=== PATIENT | female | born 1965 | race Caucasian/White ===

== ENCOUNTER 2022-06-04 18:21 | Outpatient (REF) | payer BC, MEDICAID, SELFPAY ==
[2022-06-04 15:08] LABS: Abs Immature Grans 0.03 10^3/uL (0.0-0.06); Absolute Basophil Count 0.06 10^3/uL (0.0-0.2); Absolute Eosinophil Count 0.13 10^3/uL (0.0-0.7); Absolute Monocyte Count 0.64 10^3/uL (0.1-0.8); Absolute Neutrophil Count 3.14 10^3/uL (1.2-6.7); Eosinophils % 2.1; HCT 42.9 % (36.0-46.0); HGB 14.5 g/dL (11.2-15.7); Immature Grans % 0.5; Lymphocytes % 34.4; MCH 32.6 pg (27.0-33.0); MCHC 33.8 % (32.0-36.0); MCV 96 fL (80-95); MPV 9.8 fL (8.0-11.0); Monocytes % 10.5; Neutrophils % 51.5; Platelet Count 304 10^3/uL (130-400); RBC 4.45 10^6/uL (3.93-5.22); RDW 13.1 % (11.7-14.6); RDW-SD 46.6 fL
[2022-06-06 09:41] LABS: IgE 538 IU/mL (<158)
== END 2022-06-04 18:22 | disposition home or self-care (01) ==
LOC: LBN 18:21
PROVIDERS: Visit Provider Student in an Organized Health Care Education/Training Program
DX: J44.9 Chronic obstructive pulmonary disease, unspecified (principal); J45.909 Unspecified asthma, uncomplicated
CPT/HCPCS: 82785; 85025

== ENCOUNTER 2023-09-06 15:03 | Outpatient (CLI) | payer BC, MEDICAID, SELFPAY ==
[2023-09-06 11:23] LABS: Abs Immature Grans 0.03 10^3/uL (0.0-0.06); Absolute Basophil Count 0.06 10^3/uL (0.0-0.2); Absolute Eosinophil Count 0.12 10^3/uL (0.0-0.7); Absolute Lymphocyte Count 1.59 10^3/uL (1.2-3.4); Absolute Monocyte Count 0.45 10^3/uL (0.1-0.8); Absolute Neutrophil Count 4.26 10^3/uL (1.2-6.7); Basophils % 0.9; Eosinophils % 1.8; HGB 11.7 g/dL (11.2-15.7); Immature Grans % 0.5; Lymphocytes % 24.4; MCH 30.2 pg (27.0-33.0); MCHC 31.6 % (32.0-36.0); MCV 96 fL (80-95); MPV 8.5 fL (8.0-11.0); Monocytes % 6.9; Neutrophils % 65.5; Platelet Count 294 10^3/uL (130-400); RBC 3.87 10^6/uL (3.93-5.22); RDW 13.1 % (11.7-14.6); RDW-SD 46.3 fL; WBC 6.51 10^3/uL (4.4-10.8)
--- OUTSIDE RECORDS SUMMARY | 2023-09-06 15:06 | XMS_ITS | Continuity of Care Document ---
Author Name Unknown Organization [facility] Address [address] [place] [address] Care Team Providers Care Rate Clerk Passenger Name Role Phone Alicia Castorena Primary Care Physician Denise Contreras Unavailable Unavailable Encounter [facility] Date(s): 08/09/23 - 08/09/23 [facility] [address] [place] [address] Encounter Diagnosis Back pain(Discharge Diagnosis) - 08/09/23 Discharge Disposition: Home or Self Care Attending Physician: Loretta Berger MD Admitting Physician: Loretta Berger MD Allergies, Adverse Reactions, Alerts Substance Reaction Severity Status HOUSE DUST Unknown Active WEED POLLEN Unknown Active ANIMAL DANDER Unknown Active CIGARETTE SMOKE Unknown Active codeine Itching Unknown Active amoxicillin Itching Unknown Active sulfa drugs Itching Unknown Active Assessment and Plan Future Appointments Functional Status 08/09/23 Family Member Travel History No recent t ravel Recent Travel History No recent travel Other exposure to Infectious Disease Non e Immunizations Given and Recorded Vaccine Date Status Refusal Reason influenza virus vaccine, inactivated 07/09/23 Give n influenza virus vaccine, inactivated 07/15/20 Cameron rded influenza virus vaccine, inactivated 07/29/14 Cameron rded influenza virus vaccine, inactivated 08/24/13 Cameron rded influenza virus vaccine, inactivated 09/30/12 Cameron rded influenza, unspecified formulation 1 09/19/22 Cameron rded influenza virus vaccine, live 08/09/21 Recorded influenza virus vaccine, live 2 07/06/19 Recorded influenza virus vaccine, live 08/21/18 Recorded SARS-CoV-2 (COVID-19) Ad26 vaccine 06/16/21 Record ed tetanus-diphth toxoids (Td) adult/adol 3 05/04/19 Recorded pneumococcal 23-polyvalent vaccine 4 05/04/19 Cameron rded tetanus/diphth/pertuss (Tdap) adult/adol 07/15/08 Recorded 1Result Comment: patient staetdt the vaccine was through [facility] 2Result Comment: tolerated well 3Result Comment: Tolerated well 4Result Comment: Tolerated well Medications Albuterol (Eqv-Ventolin HFA) 90 mcg/inh inhalation aerosol See Instructions, INHALE 2 PUFFS BY MOUTH EVERY 4 HOURS NEEDED, # 18 g, 0 Refill(s), Pharmacy: [facility] #[id number], 146, cm, 07/26/22 7:23:00 EDT, Height/Length Dosing, 67, kg, 07/26/22 7:23:00 EDT, Weight Dosing Start Date: 07/11/23 Status: Ordered arformoterol 15 mcg/2 mL inhalation solution USE 2 ML VIA NEBULIZER TWICE DAILY Start Date: 07/09/23 Status: Ordered Breztri Aerosphere 160 mcg-9 mcg-4.8 mcg/inh inhalation aerosol INHALE 2 PUFFS BY MOUTH TWICE DAILY Start Date: 07/09/23 Status: Ordered budesonide 1 mg/2 mL inhalation suspension USE 1 AMPULE VIA NEBULIZER DAILY Start Date: 07/09/23 Status: Ordered cyclobenzaprine 10 mg oral tablet 10 mg = 1 tab, Oral, TID, PRN as needed for spasm, X 10 days, # 30 tab, 0 Refill(s), 08/19/23 1:38:00 PM CDT, Pharmacy: [facility] #[id number], 146, cm, 08/09/23 12:12:00 EDT, Height/Length Dosing, 80.2, kg, 08/09/23 12:12:00 EDT, Weight Dosing Start Date: 08/09/23 Stop Date: 08/19/23 Status: Ordered ibuprofen 200 mg oral tablet 2 tab, Oral, As Directed, as needed, 0 Refill(s) Start Date: 03/13/22 Status: Ordered ipratropium-albuterol 0.5 mg-2.5 mg/3 mL inhalation solution See Instructions, USE 1 AMPULE IN NEBULIZER BY MOUTH EVERY 4 HOURS NEEDED, # 180 mL, 11 Refill(s), [id number], 146, cm, 07/26/22 7:23:00 EDT, Height/Length Dosing, 67, kg, 07/26/22 7:23:00 EDT, Weight Dosing Start Date: 04/01/23 Status: Ordered loratadine 10 mg oral tablet 1 tab, Oral, Daily, 0 Refill(s) Start Date: 03/13/22 Status: Ordered LORazepam 0.5 mg oral tablet See Instructions, 1 tablet twice daily as needed, # 60 tab, 0 Refill(s), Pharmacy: [id number], 146, cm, 07/26/22 7:23:00 EDT, Height/Length Dosing, 67, kg, 07/26/22 7:23:00 EDT, Weight Dosing Start Date: 07/09/23 Status: Ordered montelukast 10 mg oral tablet See Instructions, TAKE 1 TABLET BY MOUTH EVERY DAY, # 90 tab, 3 Refill(s), Pharmacy: [id number] Start Date: 06/12/22 Status: Ordered Nebulizer Machine with tubbing Nebulizer Machine with tubbing, Order for Nebulizer with tubbing [facility], Supply, See instructions, # 1 EA, 0 Refill(s) Start Date: 04/17/22 Status: Ordered oxyCODONE 5 mg oral tablet 5 mg = 1 tab, Oral, every 4 hr, PRN as needed for pain, X 5 days, # 12 tab, 0 Refill(s), 08/14/23 1:38:00 PM CDT, [id number], 146, cm, 08/09/23 12:12:00 EDT, Height/Length Dosing, 80.2, kg, 08/09/23 12:12:00 EDT, Weight Dosing Start Date: 08/09/23 Stop Date: 08/14/23 Status: Ordered oxygen concentrator oxygen concentrator, home oxygen concentrator, Supply, See instructions, # 1 EA, 0 Refill(s) Start Date: 11/01/22 Status: Ordered PORTABLE NEBULIZER WITH MASK AND TUBING PORTABLE NEBULIZER WITH MASK AND TUBING, DX: (COPD J44.9) NEEDS PORTABLE NEBULIZER MACHINE WITH MASK AND TUBING, Supply, See instructions, # 1 EA, 0 Refill(s) Start Date: 05/14/22 Status: Ordered sertraline 25 mg oral tablet 1 tab, Oral, Daily, # 90 tab, 0 Refill(s), Pharmacy: [id number], 146, cm, 07/26/22 7:23:00 EDT, Height/Length Dosing, 67, kg, 07/26/22 7:23:00 EDT, Weight Dosing Start Date: 06/05/23 Status: Ordered Tylenol Extra Strength 500 mg oral tablet 0 Refill(s) Start Date: 03/13/22 Status: Ordered Xolair Prefilled Syringe 75 mg/0.5 mL subcutaneous solution 0 Refill(s) Start Date: 07/09/23 Status: Ordered Problem List Condition Confirmation Course Effective Dates Status Health St [facility] Informant Allergic rhinitis Confirmed Active Anxiety Confirmed Active Asthma Confirmed Active Chronic obstructive lung disease Confirmed 07/06/19 Active Cough Confirmed Active Breast cancer 1 Confirmed Active Nicotine dependence Confirmed Active 1right breast. Lumpectomy /radioation Procedures Procedure Date Related Diagnosis Body Site Status CT of chest without contrast 12/18/21 Completed Lumpectomy of right breast 1 11/19/21 Completed Ultrasound of right breast 2 09/06/21 Completed Mammogram 3 08/10/21 Completed PAP smear preparation 4 07/24/17 C ompleted TL - Tubal ligation 10/20/87 Compl eted Appendectomy 10/20/84 Completed Cholecystectomy 10/20/84 Completed Tonsillectomy 10/20/67 Completed 1with radiation 2Right ultrasound guided breast biopsy with vacum assistance 3BI-RADS Category: Needs additional imaging evaluation 4WNL/Neg for HPV Vital Signs Most recent to oldest [Reference Range]: 1 Temperature Temporal Artery [36-38 Deg C ] 35.7 Deg C *LOW* (08/09/23 12:08 PM) Peripheral Pulse Rate [60-100 bpm] 90 bp m (08/09/23 12:08 PM) Respiratory Rate [12-24 br/min] 20 br/mi n (08/09/23 12:08 PM) Blood Pressure [90-140/60-90 mmHg] 153/9 6mmHg *HI* (08/09/23 12:08 PM) Mean Arterial Pressure, Cuff [65-140 mmH g] 115 mmHg (08/09/23 12:08 PM) Weight Dosing 80.20 kg (08/09/23 12:12 PM) Weight Estimated 80.20 kg (08/09/23 12:08 PM) Height/Length Dosing 146.000 cm (08/09/23 12:12 PM) Height/Length Estimated 146.000 cm (08/09/23 12:08 PM) Social History Social History Type Response Tobacco Former tobacco user Tobacco Use:. 1 Sex Female 1Quit 06/27/2018 Hospital Discharge Instructions Patient Education 08/09/2023 13:40:56 Acute Back Pain, Adult Acute Back Pain, Adult Acute back pain is sudden and usually short-lived. It is often caused by an injury to the muscles and tissues in the back. The injury may result from: ??? A muscle, tendon, or ligament getting overstretched or torn. Ligaments are tissues that connectbones to each other. Lifting something improperly can cause a back strain. ??? Wear and tear (degeneration) of the spinal disks. Spinal disks are circular tissue that providecushioning between the bones of the spine (vertebrae). ??? Twisting motions, such as while playing sports or doing yard work. ??? A hit to the back. ??? Arthritis. You may have a physical exam, lab tests, and imaging tests to find the cause of your pain. Acute back pain usually goes away with rest and home care. Follow these instructions at home: Managing pain, stiffness, and swelling ??? Take dwrn-lev-kwgwenr and prescription medicines only as told by your health care provider. Treatment may include medicines for pain and inflammation that are taken by mouth or applied to the skin, or muscle relaxants. ??? Your health care provider may recommend applying ice during the first 24???48 hours after your pain starts. To do this: ??? Put ice in a plastic bag. ??? Place a towel between your skin and the bag. ??? Leave the ice on for 20 minutes, 2???3 times a day. ??? Remove the ice if your skin turns bright red. This is very important. If you cannot feel pain, heat, or cold, you have a greater risk of damage to the area. ??? If directed, apply heat to the affected area as often as told by your health care provider. Usethe heat source that your health care provider recommends, such as a moist heat pack or a heating pad. ??? Place a towel between your skin and the heat source. ??? Leave the heat on for 20???30 minutes. ??? Remove the heat if your skin turns bright red. This is especially important if you are unable to feel pain, heat, or cold. You have a greater risk of getting burned. Activity ??? Do not stay in bed. Staying in bed for more than 1???2 days can delay your recovery. ??? Sit up and stand up straight. Avoid leaning forward when you sit or hunching over when you stand. ??? If you work at a desk, sit close to it so you do not need to lean over. Keep your chin tucked in. Keep your neck drawn back, and keep your elbows bent at a 90-degree angle (right angle). ??? Sit high and close to the steering wheel when you drive. Add lower back (lumbar) support to your car seat, if needed. ??? Take short walks on even surfaces as soon as you are able. Try to increase the length of time you walk each day. ??? Do not sit, drive, or labor standards director one place for more than 30 minutes at a time. Sitting or standing for long periods of time can put stress on your back. ??? Do not drive or use heavy machinery while taking prescription pain medicine. ??? Use proper lifting techniques. When you bend and lift, use positions that put less stress on your back: ??? Bend your knees. ??? Keep the load close to your body. ??? Avoid twisting. ??? Exercise regularly as told by your health care provider. Exercising helps your back heal fasterand helps prevent back injuries by keeping muscles strong and flexible. ??? Work with a physical therapist to make a safe exercise program, as recommended by your health care provider. Do any exercises as told by your physical therapist. Lifestyle ??? Maintain a healthy weight. Extra weight puts stress on your back and makes it difficult to havegood posture. ??? Avoid activities or situations that make you feel anxious or stressed. Stress and anxiety increase muscle tension and can make back pain worse. Learn ways to manage anxiety and stress, such as through exercise. General instructions ??? Sleep on a firm mattress in a comfortable position. Try lying on your side with your knees slightly bent. If you lie on your back, put a pillow under your knees. ??? Keep your head and neck in a straight line with your spine (neutral position) when using electronic equipment like smartphones or pads. To do this: ??? Raise your smartphone or pad to look at it instead of bending your head or neck to look down. ??? Put the smartphone or pad at the level of your face while looking at the screen. ??? Follow your treatment plan as told by your health care provider. This may include: ??? Cognitive or behavioral therapy. ??? Acupuncture or massage therapy. ??? Meditation or yoga. Contact a health care provider if: ??? You have pain that is not relieved with rest or medicine. ??? You have increasing pain going down into your legs or buttocks. ??? Your pain does not improve after 2 weeks. ??? You have pain at night. ??? You lose weight without trying. ??? You have a fever or chills. ??? You develop nausea or vomiting. ??? You develop abdominal pain. Get help right away if: ??? You develop new bowel or bladder control problems. ??? You have unusual weakness or numbness in your arms or legs. ??? You feel faint. These symptoms may represent a serious problem that is an emergency. Do not wait to see if the symptoms will go away. Get medical help right away. Call your local emergency services (911 in the [place] Do not drive yourself to the hospital. Summary ??? Acute back pain is sudden and usually short-lived. ??? Use proper lifting techniques. When you bend and lift, use positions that put less stress on your back. ??? Take smkn-jju-swaxxjg and prescription medicines only as told by your health care provider, andapply heat or ice as told. This information is not intended to replace advice given to you by your health care provider. Make sure you discuss any questions you have with your health care provider. Document Revised: 12/29/2021 Document Reviewed: 12/29/2021 [employer] Patient Education ?? 2022 [email or web address]. Follow Up Care 08/09/2023 12:08:30 With:Follow up with primary care provider Address: When:1 to 2 weeks Physician Emergency department Note * Loretta Berger MD: PERFORM Event Display: ED Note Physician Authored Date: [id number] ANGELITO TELLEZ :1965 Age:57 years Sex:Female Visit Date:08/09/2023 Primary Care Physician: Alicia Castorena MD Basic Information Time Seen: Loretta Berger MD / 08/09/2023 14:20 Chief Complaint I have back pain I was strectching a few days ago and I felt a pop. I had left over methocarbomel but I only have two left.' I can't get into PCP until saturday. I'm taking so much ibuprofen and tylenol i'm nausetaed from it History Of Present Illness: Reports earlier in the week on Saturday she??stretched and felt something pop in her right low back??she has had pain there since she has tried??further stretching without relief it is affected her sleep??she has had Flexeril 1 tablet last that??helped a little she has been taking some Tylenol ibuprof en??regularly with some relief but not a lot she states it is still bothering her quite a bit??she has been trying to get into see her primary care provider the soonest they could get her in with Saturday.?? Patient is on O2 chronically she has??COPD but then had radiation that made her??have to haveoxygen??all the time, patient does not drive her children drive??her children live with her.?? No fever??no urinary??symptoms??no bowel or bladder incontinence no tingling or numbness of legs no weakness of legs. Review of Systems: see hpi for ros Physical Exam Vitals & Measurements T:??35.7?C ??(Temporal Artery)?? HR:??90??(Peripheral)?? RR:??20?? BP:??153/96?? SpO2:??96%?? HT:??146.000??cm?? WT:??80.20??kg??(Estimated)?? O2 Flow Rate:??4?? O2 Therapy:??Nasal cannula?? General: Alert and oriented, well nourished,?No??acute distress Eye: PER,?Normal??conjunctiva, No scleral icterus HENT: Normocephalic?Normal?? hearing?? Respiratory:??Respiration??no distress??no increased work of breathing Chest: wall excursion wnl no abnormal movements no obvious deformities Musculoskeletal:?Normal?? range of motion and strength,?No??tenderness,?No??swelling Back:Positive tenderness right lumbar paraspinal muscles Skin: Skin is warm, dry and pink,?No??rashes,?No??lesions Neurologic: Awake, alert and oriented X4 Psychiatric: Cooperative, appropriate mood and affect Medical Decision Making: For MDM please see under assessment and plan Procedure No Qualifying Data Assessment/Plan 1.??Back pain??M54.9 For cyclobenzaprine 10 mg 3 times a day is sent to the pharmacy as well as??oxycodone 5 mg 1 tab every 4 hours as needed??#12 tabs??patient will continue with ibuprofen and Tylenol and have??oxycodone if needed.?? 2 lidocaine patches were applied here in the emergency department to see if this willbe helpful.?? Patient is aware these??lidocaine patches can be on??for 12 hours and then must be off for 12 hours Ordered: cyclobenzaprine 10 mg oral tablet, 10 mg = 1 tab, Oral, TID, PRN as needed for spasm, X 10 days, # 30 tab, 0 Refill(s), 08/19/23 14:38:00 EDT, Pharmacy: [facility] #[id number], 146, cm, 08/09/2312:12:00 EDT, Height/Length Dosing, 80.2, kg, 08/09/23 12:12:00 EDT, Weight Dosing lidocaine 5% topical film, 1 patches, Topical, Film, Once, First Dose: 08/09/23 14:40:00 EDT, Stop Date: 08/09/23 14:40:00 EDT, Physician Stop, STAT lidocaine 5% topical film, 1 patches, Topical, Film, Once, First Dose: 08/09/23 14:40:00 EDT, Stop Date: 08/09/23 14:40:00 EDT, Physician Stop, STAT oxyCODONE 5 mg oral tablet, 5 mg = 1 tab, Oral, every 4 hr, PRN as needed for pain, X 5 days, # 12 tab, 0 Refill(s), 08/14/23 14:38:00 EDT, Pharmacy: [facility] #[id number], 146, cm, 08/09/23 12:12:00 EDT, Height/Length Dosing, 80.2, kg, 08/09/23 12:12:00 EDT, Weight Dosing Discharge Patient, 08/09/23 14:38:00 EDT, Home Independently, Constant Indicator ?? Patient Education Acute Back Pain, Adult Follow Up With When Contact Information Follow up with primary care provider Within 1 to 2 weeks Additional Instructions: Medication Reconciliation New Prescription cyclobenzaprine (cyclobenzaprine 10 mg oral tablet)1 tab Oral (given by mouth) 3 times a day as needed as needed for spasm for 10 Days. Refills: 0. ?? oxyCODONE (oxyCODONE 5 mg oral tablet)1 tab Oral (given by mouth) every 4 hours as needed as neededfor pain for 5 Days. Refills: 0. ?? Unchanged acetaminophen (Tylenol Extra Strength 500 mg oral tablet) ?? albuterol (Albuterol (Eqv-Ventolin HFA) 90 mcg/inh inhalation aerosol)INHALE 2 PUFFS BY MOUTH EVERY4 HOURS NEEDED. Refills: 0. ?? arformoterol (arformoterol 15 mcg/2 mL inhalation solution)USE 2 ML VIA NEBULIZER TWICE DAILY. ?? budesonide (budesonide 1 mg/2 mL inhalation suspension)USE 1 AMPULE VIA NEBULIZER DAILY. ?? budesonide/glycopyrrolate/formoterol (Breztri Aerosphere 160 mcg-9 mcg-4.8 mcg/inh inhalation aerosol)INHALE 2 PUFFS BY MOUTH TWICE DAILY. ?? Durable Medical Equipment for Prescription (Nebulizer Machine with tubbing)Order for Nebulizer withtubbing [facility]. Refills: 0. ?? Durable Medical Equipment for Prescription (oxygen concentrator)home oxygen concentrator. Refills: 0. ?? Durable Medical Equipment for Prescription (PORTABLE NEBULIZER WITH MASK AND TUBING)DX: (COPD J44.9) NEEDS PORTABLE NEBULIZER MACHINE WITH MASK AND TUBING. Refills: 0. ?? ibuprofen (ibuprofen 200 mg oral tablet)2 tab Oral (given by mouth) As Directed. as needed. ?? ipratropium-albuterol (ipratropium-albuterol 0.5 mg-2.5 mg/3 mL inhalation solution)USE 1 AMPULE INNEBULIZER BY MOUTH EVERY 4 HOURS NEEDED. Refills: 11. ?? loratadine (loratadine 10 mg oral tablet)1 tab Oral (given by mouth) every day. ?? LORazepam (LORazepam 0.5 mg oral tablet)1 tablet twice daily as needed. Refills: 0. ?? montelukast (montelukast 10 mg oral tablet)TAKE 1 TABLET BY MOUTH EVERY DAY. Refills: 3. ?? omalizumab (Xolair Prefilled Syringe 75 mg/0.5 mL subcutaneous solution) ?? sertraline (sertraline 25 mg oral tablet)1 tab Oral (given by mouth) every day. Refills: 0. Problem List/Past Medical History Ongoing Allergic rhinitis Anxiety Asthma Breast cancer Chronic obstructive lung disease Cough Nicotine dependence Historical No qualifying data Procedure/Surgical History ???CT of chest without contrast (12/19/2021)???Lumpectomy of right breast (11/20/2021)???Ultrasoundof right breast (09/07/2021)???Mammogram (08/11/2021)???PAP smear preparation (07/25/2017)???TL - Tubal ligation (10/21/1987)???Appendectomy (10/21/1984)???Cholecystectomy (10/21/1984)???Tonsillectomy (10/21/1967) Allergies ANIMAL DANDER CIGARETTE SMOKE HOUSE DUST WEED POLLEN amoxicillin??(Itching) codeine??(Itching) sulfa drugs??(Itching) Social History Alcohol Current, 1-2 times per year Electronic Cigarette/Vaping Electronic Cigarette Use: Former use, quit more than 90 days ago.- Comments: 2018 x 1 month 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 Nutrition/Health Diet: Regular. Caffeine intake amount: 3 cups of coffee daily. Substance Use Never Tobacco Former tobacco user Tobacco Use:.- Comments: Quit 06/27/2018 Family History Patient was adopted Electronically Signed on 08/09/23 02:47 PM Loretta Berger MD Emergency department Discharge instructions * Loretta Berger MD: PERFORM Event Display: ED Discharge Information Authored Date: [id number] ANGELITO TELLEZ :1965 Age:57 years Sex:Female Visit Date:08/09/2023 Primary Care Physician: Alicia Castorena MD Discharge Instructions We would like to thank you for allowing us to assist you with your healthcare needs. The following includes patient education materials and information regarding your injury/illness. Diagnosis from Today's Visit Back pain Discharge Vitals Temperature??(Temporal Artery) 96.3 ??F (35.7 ??C) Heart Rate??(Peripheral) 90 Respiratory Rate?? 20 Blood Pressure?? 153/96?? Height?? 57.48 in (146.000 cm) Weight??(Estimated) 176.84 lb (80.20 kg) Allergies ANIMAL DANDER CIGARETTE SMOKE HOUSE DUST WEED POLLEN amoxicillin??(Itching) codeine??(Itching) sulfa drugs??(Itching) What to Do Next Instructions from Your Care Team You may take up to 600 mg of Motrin, Advil??(ibuprofen)??every??6 hours as needed for pain or discomfort??and or??up to??650 mg??of Tylenol??(acetaminophen) every 6 hours as needed??for pain or discomfort for maximum 4000 mg in 24 hours or you may permanently hurt your liver.?? For pain uncontrolled by ibuprofen and acetaminophen you may take??oxycodone 5 mg 1 tab every 4 hours as needed.?? You may take Flexeril (cyclobenzaprine) 10 mg 3 times a day as needed. You Need to Schedule the Following Appointments Follow Up with??Follow up with primary care provider When:??Within 1 to 2 weeks Upcoming Scheduled Appointments Saturday 3:20 PM EST ?? Where: [facility] [address] [address] Status: Confirmed You were treated today on an emergency basis; it may be erwin to contact your primary care provider to notify them of your visit today. You may have been referred to your regular doctor or a specialist, please follow up as instructed. If your condition worsens or you can't get in to see the doctor, contact the Emergency Department. Medications What How Much When Why Instructions Next Dose New cyclobenzaprine (cyclobenzaprine 10 mg oral tablet) 1 tab Oral (given by mouth) 3 times a day as needed for as needed for spasm Back pain Duration: 10 Days Pickup at [facility] #[id number] New oxyCODONE (oxyCODONE 5 mg oral tablet) 1 tab Oral (given by mouth) Every 4 hours as needed for as needed for pain Back pain Duration: 5 Days Pickup at [facility] #[id number] Unchanged acetaminophen (Tylenol Extra Strength 500 mg oral tablet) Unchanged albuterol (Albuterol (Eqv-Ventolin HFA) 90 mcg/ inh inhalation aerosol) See instructions INHALE 2 PUFFS BY MOUTH EVERY 4 HOURS NEEDED ?? Unchanged arformoterol (arformoterol 15 mcg/ 2 mL inhalation solution) USE 2 ML VIA NEBULIZER TWICE DAILY ?? Unchanged budesonide (budesonide 1 mg/ 2 mL inhalation suspension) USE 1 AMPULE VIA NEBULIZER DAILY ?? Unchanged budesonide/ glycopyrrolate/ formoterol (Breztri Aerosphere 160 mcg-9 mcg-4.8 mcg/ inh inhalation aerosol) INHALE 2 PUFFS BY MOUTH TWICE DAILY ?? Unchanged Durable Medical Equipment for Prescription (Nebulizer Machine with tubbing) See instructions Asthma Order for Nebulizer with tubbing [facility] ?? Unchanged Durable Medical Equipment for Prescription (oxygen concentrator) See instructions home oxygen concentrator ?? Unchanged Durable Medical Equipment for Prescription (PORTABLE NEBULIZER WITH MASK AND TUBING) See instructions Chronic obstructive lung disease DX: (COPD J44.9) NEEDS PORTABLE NEBULIZER MACHINE WITH MASK AND TUBING ?? Unchanged ibuprofen (ibuprofen 200 mg oral tablet) 2 tab Oral (given by mouth) As Directed as needed ?? Unchanged ipratropium-albuterol (ipratropium-albuterol 0.5 mg-2.5 mg/ 3 mL inhalation solution) Seeinstructions USE 1 AMPULE IN NEBULIZER BY MOUTH EVERY 4 HOURS NEEDED ?? Unchanged loratadine (loratadine 10 mg oral tablet) 1 tab Oral (given by mouth) Every day Unchanged LORazepam (LORazepam 0.5 mg oral tablet) See instructions 1 tablet twice daily as needed ?? Unchanged montelukast (montelukast 10 mg oral tablet) See instructions TAKE 1 TABLET BY MOUTH EVERY DAY ?? Unchanged omalizumab (Xolair Prefilled Syringe 75 mg/ 0.5 mL subcutaneous solution) Unchanged sertraline (sertraline 25 mg oral tablet) 1 tab Oral (given by mouth) Every day Pharmacy Information [facility] #[id number]: [address] [phone] Education Materials Acute Back Pain, Adult Acute back pain is sudden and usually short-lived. It is often caused by an injury to the muscles and tissues in the back. The injury may result from: ? A muscle, tendon, or ligament getting overstretched or torn. Ligaments are tissues that connect bones to each other. Lifting something improperly can cause a back strain. ? Wear and tear (degeneration) of the spinal disks. Spinal disks are circular tissue that provide cushioning between the bones of the spine (vertebrae). ? Twisting motions, such as while playing sports or doing yard work. ? A hit to the back. ? Arthritis. You may have a physical exam, lab tests, and imaging tests to find the cause of your pain. Acute back pain usually goes away with rest and home care. Follow these instructions at home: Managing pain, stiffness, and swelling ? Take fmam-puo-airuiya and prescription medicines only as told by your health care provider. Treatment may include medicines for pain and inflammation that are taken by mouth or applied to the skin, or muscle relaxants. ? Your health care provider may recommend applying ice during the first 24???48 hours after your painstarts. To do this: ? Put ice in a plastic bag. ? Place a towel between your skin and the bag. ? Leave the ice on for 20 minutes, 2???3 times a day. ? Remove the ice if your skin turns bright red. This is very important. If you cannot feel pain, heat, or cold, you have a greater risk of damage to the area. ? If directed, apply heat to the affected area as often as told by your health care provider. Use theheat source that your health care provider recommends, such as a moist heat pack or a heating pad. ? Place a towel between your skin and the heat source. ? Leave the heat on for 20???30 minutes. ? Remove the heat if your skin turns bright red. This is especially important if you are unable to feel pain, heat, or cold. You have a greater risk of getting burned. Activity ? Do not stay in bed. Staying in bed for more than 1???2 days can delay your recovery. ? Sit up and stand up straight. Avoid leaning forward when you sit or hunching over when you stand. ? If you work at a desk, sit close to it so you do not need to lean over. Keep your chin tucked in. Keep your neck drawn back, and keep your elbows bent at a 90-degree angle (right angle). ? Sit high and close to the steering wheel when you drive. Add lower back (lumbar) support to your car seat, if needed. ? Take short walks on even surfaces as soon as you are able. Try to increase the length of time you walk each day. ? Do not sit, drive, or labor standards director one place for more than 30 minutes at a time. Sitting or standing for long periods of time can put stress on your back. ? Do not drive or use heavy machinery while taking prescription pain medicine. ? Use proper lifting techniques. When you bend and lift, use positions that put less stress on your back: ? Bend your knees. ? Keep the load close to your body. ? Avoid twisting. ? Exercise regularly as told by your health care provider. Exercising helps your back heal faster andhelps prevent back injuries by keeping muscles strong and flexible. ? Work with a physical therapist to make a safe exercise program, as recommended by your health care provider. Do any exercises as told by your physical therapist. Lifestyle ? Maintain a healthy weight. Extra weight puts stress on your back and makes it difficult to have good posture. ? Avoid activities or situations that make you feel anxious or stressed. Stress and anxiety increase muscle tension and can make back pain worse. Learn ways to manage anxiety and stress, such as through exercise. General instructions ? Sleep on a firm mattress in a comfortable position. Try lying on your side with your knees slightlybent. If you lie on your back, put a pillow under your knees. ? Keep your head and neck in a straight line with your spine (neutral position) when using electronicequipment like smartphones or pads. To do this: ? Raise your smartphone or pad to look at it instead of bending your head or neck to look down. ? Put the smartphone or pad at the level of your face while looking at the screen. ? Follow your treatment plan as told by your health care provider. This may include: ? Cognitive or behavioral therapy. ? Acupuncture or massage therapy. ? Meditation or yoga. Contact a health care provider if: ? You have pain that is not relieved with rest or medicine. ? You have increasing pain going down into your legs or buttocks. ? Your pain does not improve after 2 weeks. ? You have pain at night. ? You lose weight without trying. ? You have a fever or chills. ? You develop nausea or vomiting. ? You develop abdominal pain. Get help right away if: ? You develop new bowel or bladder control problems. ? You have unusual weakness or numbness in your arms or legs. ? You feel faint. These symptoms may represent a serious problem that is an emergency. Do not wait to see if the symptoms will go away. Get medical help right away. Call your local emergency services (911 in the [place] Do not drive yourself to the hospital. Summary ? Acute back pain is sudden and usually short-lived. ? Use proper lifting techniques. When you bend and lift, use positions that put less stress on your back. ? Take qzkt-flr-ygwnrit and prescription medicines only as told by your health care provider, and apply heat or ice as told. This information is not intended to replace advice given to you by your health care provider. Make sure you discuss any questions you have with your health care provider. Document Revised: 12/29/2021 Document Reviewed: 12/29/2021 Elsevier Patient Education ?? 2022 [employer]vier Inc. Patient/Tax Associate Attorney Signature Patient Name:ANGELITO TELLEZ I have received this information and my questions have been answered. Patient/Tax Associate Attorney Name: Patient/Tax Associate Attorney Signature: Relationship to Patient: Witness Name/Signature: Date: Electronically Signed on: 08/09/2023 14:49 EDTSigned by:AMS * Loretta Berger MD: PERFORM Event Display: ED Discharge Information Authored Date: [id number] ANGELITO TELLEZ :1965 Age:57 years Sex:Female Visit Date:08/09/2023 Primary Care Physician: Alicia Castorena MD Discharge Instructions We would like to thank you for allowing us to assist you with your healthcare needs. The following includes patient education materials and information regarding your injury/illness. Diagnosis from Today's Visit Back pain Discharge Vitals Temperature??(Temporal Artery) 96.3 ??F (35.7 ??C) Heart Rate??(Peripheral) 90 Respiratory Rate?? 20 Blood Pressure?? 153/96?? Height?? 57.48 in (146.000 cm) Weight??(Estimated) 176.84 lb (80.20 kg) Allergies ANIMAL DANDER CIGARETTE SMOKE HOUSE DUST WEED POLLEN amoxicillin??(Itching) codeine??(Itching) sulfa drugs??(Itching) What to Do Next Instructions from Your Care Team You may take up to 600 mg of Motrin, Advil??(ibuprofen)??every??6 hours as needed for pain or discomfort??and or??up to??650 mg??of Tylenol??(acetaminophen) every 6 hours as needed??for pain or discomfort for maximum 4000 mg in 24 hours or you may permanently hurt your liver.?? For pain uncontrolled by ibuprofen and acetaminophen you may take??oxycodone 5 mg 1 tab every 4 hours as needed.?? You may take Flexeril (cyclobenzaprine) 10 mg 3 times a day as needed. You Need to Schedule the Following Appointments Follow Up with??Follow up with primary care provider When:??Within 1 to 2 weeks Upcoming Scheduled Appointments Saturday 3:20 PM EST ?? Where: [facility] [address] [address] Status: Confirmed You were treated today on an emergency basis; it may be erwin to contact your primary care provider to notify them of your visit today. You may have been referred to your regular doctor or a specialist, please follow up as instructed. If your condition worsens or you can't get in to see the doctor, contact the Emergency Department. Medications What How Much When Why Instructions Next Dose New cyclobenzaprine (cyclobenzaprine 10 mg oral tablet) 1 tab Oral (given by mouth) 3 times a day as needed for as needed for spasm Back pain Duration: 10 Days Pickup at [facility] #[id number] New oxyCODONE (oxyCODONE 5 mg oral tablet) 1 tab Oral (given by mouth) Every 4 hours as needed for as needed for pain Back pain Duration: 5 Days Pickup at [facility] #[id number] Unchanged acetaminophen (Tylenol Extra Strength 500 mg oral tablet) Unchanged albuterol (Albuterol (Eqv-Ventolin HFA) 90 mcg/ inh inhalation aerosol) See instructions INHALE 2 PUFFS BY MOUTH EVERY 4 HOURS NEEDED ?? Unchanged arformoterol (arformoterol 15 mcg/ 2 mL inhalation solution) USE 2 ML VIA NEBULIZER TWICE DAILY ?? Unchanged budesonide (budesonide 1 mg/ 2 mL inhalation suspension) USE 1 AMPULE VIA NEBULIZER DAILY ?? Unchanged budesonide/ glycopyrrolate/ formoterol (Breztri Aerosphere 160 mcg-9 mcg-4.8 mcg/ inh inhalation aerosol) INHALE 2 PUFFS BY MOUTH TWICE DAILY ?? Unchanged Durable Medical Equipment for Prescription (Nebulizer Machine with tubbing) See instructions Asthma Order for Nebulizer with tubbing [facility] ?? Unchanged Durable Medical Equipment for Prescription (oxygen concentrator) See instructions home oxygen concentrator ?? Unchanged Durable Medical Equipment for Prescription (PORTABLE NEBULIZER WITH MASK AND TUBING) See instructions Chronic obstructive lung disease DX: (COPD J44.9) NEEDS PORTABLE NEBULIZER MACHINE WITH MASK AND TUBING ?? Unchanged ibuprofen (ibuprofen 200 mg oral tablet) 2 tab Oral (given by mouth) As Directed as needed ?? Unchanged ipratropium-albuterol (ipratropium-albuterol 0.5 mg-2.5 mg/ 3 mL inhalation solution) Seeinstructions USE 1 AMPULE IN NEBULIZER BY MOUTH EVERY 4 HOURS NEEDED ?? Unchanged loratadine (loratadine 10 mg oral tablet) 1 tab Oral (given by mouth) Every day Unchanged LORazepam (LORazepam 0.5 mg oral tablet) See instructions 1 tablet twice daily as needed ?? Unchanged montelukast (montelukast 10 mg oral tablet) See instructions TAKE 1 TABLET BY MOUTH EVERY DAY ?? Unchanged omalizumab (Xolair Prefilled Syringe 75 mg/ 0.5 mL subcutaneous solution) Unchanged sertraline (sertraline 25 mg oral tablet) 1 tab Oral (given by mouth) Every day Pharmacy Information [facility] #[id number]: [address] [phone] Education Materials Acute Back Pain, Adult Acute back pain is sudden and usually short-lived. It is often caused by an injury to the muscles and tissues in the back. The injury may result from: ? A muscle, tendon, or ligament getting overstretched or torn. Ligaments are tissues that connect bones to each other. Lifting something improperly can cause a back strain. ? Wear and tear (degeneration) of the spinal disks. Spinal disks are circular tissue that provide cushioning between the bones of the spine (vertebrae). ? Twisting motions, such as while playing sports or doing yard work. ? A hit to the back. ? Arthritis. You may have a physical exam, lab tests, and imaging tests to find the cause of your pain. Acute back pain usually goes away with rest and home care. Follow these instructions at home: Managing pain, stiffness, and swelling ? Take ajxa-hbl-rtrohcl and prescription medicines only as told by your health care provider. Treatment may include medicines for pain and inflammation that are taken by mouth or applied to the skin, or muscle relaxants. ? Your health care provider may recommend applying ice during the first 24???48 hours after your painstarts. To do this: ? Put ice in a plastic bag. ? Place a towel between your skin and the bag. ? Leave the ice on for 20 minutes, 2???3 times a day. ? Remove the ice if your skin turns bright red. This is very important. If you cannot feel pain, heat, or cold, you have a greater risk of damage to the area. ? If directed, apply heat to the affected area as often as told by your health care provider. Use theheat source that your health care provider recommends, such as a moist heat pack or a heating pad. ? Place a towel between your skin and the heat source. ? Leave the heat on for 20???30 minutes. ? Remove the heat if your skin turns bright red. This is especially important if you are unable to feel pain, heat, or cold. You have a greater risk of getting burned. Activity ? Do not stay in bed. Staying in bed for more than 1???2 days can delay your recovery. ? Sit up and stand up straight. Avoid leaning forward when you sit or hunching over when you stand. ? If you work at a desk, sit close to it so you do not need to lean over. Keep your chin tucked in. Keep your neck drawn back, and keep your elbows bent at a 90-degree angle (right angle). ? Sit high and close to the steering wheel when you drive. Add lower back (lumbar) support to your car seat, if needed. ? Take short walks on even surfaces as soon as you are able. Try to increase the length of time you walk each day. ? Do not sit, drive, or labor standards director one place for more than 30 minutes at a time. Sitting or standing for long periods of time can put stress on your back. ? Do not drive or use heavy machinery while taking prescription pain medicine. ? Use proper lifting techniques. When you bend and lift, use positions that put less stress on your back: ? Bend your knees. ? Keep the load close to your body. ? Avoid twisting. ? Exercise regularly as told by your health care provider. Exercising helps your back heal faster andhelps prevent back injuries by keeping muscles strong and flexible. ? Work with a physical therapist to make a safe exercise program, as recommended by your health care provider. Do any exercises as told by your physical therapist. Lifestyle ? Maintain a healthy weight. Extra weight puts stress on your back and makes it difficult to have good posture. ? Avoid activities or situations that make you feel anxious or stressed. Stress and anxiety increase muscle tension and can make back pain worse. Learn ways to manage anxiety and stress, such as through exercise. General instructions ? Sleep on a firm mattress in a comfortable position. Try lying on your side with your knees slightlybent. If you lie on your back, put a pillow under your knees. ? Keep your head and neck in a straight line with your spine (neutral position) when using electronicequipment like smartphones or pads. To do this: ? Raise your smartphone or pad to look at it instead of bending your head or neck to look down. ? Put the smartphone or pad at the level of your face while looking at the screen. ? Follow your treatment plan as told by your health care provider. This may include: ? Cognitive or behavioral therapy. ? Acupuncture or massage therapy. ? Meditation or yoga. Contact a health care provider if: ? You have pain that is not relieved with rest or medicine. ? You have increasing pain going down into your legs or buttocks. ? Your pain does not improve after 2 weeks. ? You have pain at night. ? You lose weight without trying. ? You have a fever or chills. ? You develop nausea or vomiting. ? You develop abdominal pain. Get help right away if: ? You develop new bowel or bladder control problems. ? You have unusual weakness or numbness in your arms or legs. ? You feel faint. These symptoms may represent a serious problem that is an emergency. Do not wait to see if the symptoms will go away. Get medical help right away. Call your local emergency services (911 in the [place] Do not drive yourself to the hospital. Summary ? Acute back pain is sudden and usually short-lived. ? Use proper lifting techniques. When you bend and lift, use positions that put less stress on your back. ? Take cuhr-mxu-krdjxny and prescription medicines only as told by your health care provider, and apply heat or ice as told. This information is not intended to replace advice given to you by your health care provider. Make sure you discuss any questions you have with your health care provider. Document Revised: 12/29/2021 Document Reviewed: 12/29/2021 Elsevier Patient Education ?? 2022 Elsevier Inc. Patient/Tax Associate Attorney Signature Patient Name:ANGELITO TELLEZ I have received this information and my questions have been answered. Patient/Tax Associate Attorney Name: Patient/Tax Associate Attorney Signature: Relationship to Patient: Witness Name/Signature: Date: Electronically Signed on: 08/09/2023 14:43 EDTSigned by:[facility] Emergency department Note * Ebony Lorenzo: PERFORM Event Display: ED Notes Authored Date: [id number] * Ebony Lorenzo: PERFORM Event Display: ED Notes Authored Date: [id number] Patient Care team information Care Team Personnel Name: Alicia Castorena MD Position: Physician Member Role: Informed Provider Address: Address: [address] Name: Denise Contreras Position: Ambulatory - RN/OPERATING ROOM ASSISTANT ([facility]) Member Role: Director Of Operations For Therapy Name: Dylan Cummings MD Position: No Access Member Role: Oyster Floater Address: Address: [address] [place] [address] Name: Loretta Berger MD Position: Physician Member Role: ED Physician Address: Address: [address] [place] [address] Care Team Related Persons Name: ZOFIA TELLEZ
--- OUTSIDE RECORDS SUMMARY | 2023-09-06 15:07 | XMS_ITS | Continuity of Care Document ---
Author Name Unknown Organization [facility] Address [address] [place] [address] Care Team Providers Care Groundwater Monitoring Technician Name Role Phone Alicia Castorena Primary Care Physician [phone] Denise Contreras Unavailable Unavailable [facility] Date(s[facility] 08/28/23 - 08/28/23 [facility] [address] [place] [address] Discharge Disposition: Home or Self Care Attending Physician: Jacqui Logan MD Admitting Physician: Jacqui Logan MD Referring Physician: Jacqui Logan MD Allergies, Adverse Reactions, Alerts Substance Reaction Severity Status HOUSE DUST Unknown Active WEED POLLEN Unknown Active ANIMAL DANDER Unknown Active CIGARETTE SMOKE Unknown Active codeine Itching Unknown Active amoxicillin Itching Unknown Active sulfa drugs Itching Unknown Active Assessment and Plan Future Appointments Immunizations Given and Recorded Vaccine Date Status [...] 05/04/19 Recorded pneumococcal 23-polyvalent vaccine 4 05/04/19 [facility] rded tetanus/diphth/pertuss (Tdap) adult/adol 07/15/08 Recorded 1Result Comment: patient staetdt the vaccine was through [facility] 2Result Comment: tolerated well 3Result Comment: Tolerated well 4Result Comment: Tolerated well Medications Albuterol (Eqv-Ventolin HFA) 90 mcg/inh inhalation aerosol See Instructions, INHALE 2 PUFFS BY MOUTH EVERY 4 HOURS NEEDED, # 18 g, 0 Refill(s), Pharmacy: [facility] #[id number], 146, cm, 07/26/22 7:23:00 EDT, Height/Length Dosing, [...] NEBULIZER DAILY Start Date: 07/09/23 Status: Ordered ibuprofen 200 mg oral tablet 2 tab, Oral, As Directed, as needed, 0 Refill(s) Start Date: 03/13/22 Status: Ordered ipratropium-albuterol 0.5 mg-2.5 mg/3 mL inhalation solution See Instructions, USE 1 AMPULE IN NEBULIZER BY MOUTH EVERY 4 HOURS NEEDED, # 180 mL, 11 Refill(s), Pharmacy: [facility] #[id number], 146, cm, 07/26/22 7:23:00 EDT, Height/Length Dosing, 67, kg, 07/26/22 7:23:00 EDT, Weight Dosing Start Date: 04/01/23 Status: Ordered loratadine 10 mg oral tablet 1 tab, Oral, Daily, 0 Refill(s) Start Date: 03/13/22 Status: Ordered LORazepam 0.5 mg oral tablet See Instructions, 1 tablet twice daily as needed, # 60 tab, 0 Refill(s), Pharmacy: [facility] [id number], 146, cm, 07/26/22 7:23:00 EDT, Height/Length Dosing, 67, kg, 07/26/22 7:23:00 EDT, Weight Dosing Start Date: 07/09/23 Status: Ordered montelukast 10 mg oral tablet See Instructions, TAKE 1 TABLET BY MOUTH EVERY DAY, # 90 tab, 3 Refill(s), Pharmacy: [id number] Start Date: 06/12/22 Status: Ordered Nebulizer Machine with tubbing Nebulizer Machine with tubbing, Order for Nebulizer with tubbing [facility] Supply, See instructions, # 1 EA, 0 Refill(s) Start Date: 04/17/22 Status: Ordered oxygen concentrator oxygen concentrator, home [...] Daily, # 90 tab, 0 Refill(s), Pharmacy: [id number], 146, cm, 08/09/23 12:12:00 EDT, Height/Length Dosing, 80.2, kg, 08/09/23 12:12:00 EDT, Weight Dosing Start Date: 08/16/23 Status: Ordered Tylenol Extra Strength 500 mg [...] Needs additional imaging evaluation 4WNL/Neg for HPV Social History Social History Type Response Tobacco Former tobacco user Tobacco Use:. 1 Sex Female 1Quit 06/27/2018 Patient Care team information Care Team Personnel Name: Alicia Castorena MD Position: Physician Member Role: Informed Provider Address: Address: [address] Name: Denise Contreras Position: Ambulatory - RN/SENIOR NETWORK ENGINEER ([facility]) Member Role: Experimental Assembler Name: Dylan Cummings MD Position: No Access Member Role: Burring Wheel Operator Address: Address: [address] [place] [address] Care Team Related Persons Name: ZOFIA TELLEZ
--- OUTSIDE RECORDS SUMMARY | 2023-09-06 15:07 | XMS_ITS | Continuity of Care Document ---
Author Name Unknown Organization [facility] Address [address] [place] [address] Care Team Providers Care Alarm Adjuster Name Role Phone Alicia Castorena Primary Care Physician Denise Contreras Unavailable Unavailable [facility]counter [facility] Date(s): 10/29/22 - 10/29/22 [facility] [address] [place] [address] Discharge Disposition: Home or Self Care Attending Physician: Jacqui Logan Admitting Physician: Jacqui Logan Referring Physician: Jacqui Logan Allergies, Adverse Reactions, Alerts Substance Reaction Severity Status HOUSE DUST Unknown Active WEED POLLEN Unknown Active ANIMAL DANDER Unknown Active CIGARETTE SMOKE Unknown Active amoxicillin Itching Unknown Active sulfa drugs Itching Unknown Active codeine Itching Unknown Active Immunizations Given and Recorded Vaccine Date Status Refusal Reason influenza virus vaccine, live 08/09/21 Recorded influenza virus vaccine, live 1 07/06/19 Recorded influenza virus vaccine, live 08/21/18 Recorded SARS-CoV-2 (COVID-19) Ad26 vaccine 06/16/21 Record ed influenza virus vaccine, inactivated 07/15/20 Cameron rded influenza virus vaccine, inactivated 07/29/14 Cameron rded influenza virus vaccine, inactivated 08/24/13 Caemron rded influenza virus vaccine, inactivated 09/30/12 Cameron rded tetanus-diphth toxoids (Td) adult/adol 2 05/04/19 Recorded pneumococcal 23-polyvalent vaccine 3 05/04/19 Cameron rded tetanus/diphth/pertuss (Tdap) adult/adol 07/15/08 Recorded 1Result Comment: tolerated well 2Result Comment: Tolerated well 3Result Comment: Tolerated well Medications Advair HFA 230 mcg-21 mcg/inh inhalation aerosol 2 puffs, Inhale, BID, This will replace your Wixela, # 3 EA, 3 Refill(s), Pharmacy: [facility] #[id number] Start Date: 04/13/22 Status: Ordered albuterol 2.5 mg/3 mL (0.083%) inhalation solution 2.5 mg = 3 mL, NEB, every 4 hr, PRN as needed for wheezing, # 90 mL, 0 Refill(s), Pharmacy: [facility], 149.96, cm, 07/10/22 9:07:00 EDT, Height/Length Dosing, 65.77, kg, 07/10/22 9:07:00 EDT, Weight Dosing Start Date: 07/10/22 Status: Ordered albuterol 90 mcg/inh aerosol inhaler 180 mcg 2 puffs, Inhale, every 4 hr, PRN as needed, # 18 g, 1 Refill(s), Pharmacy: [id number] Start Date: 06/20/22 Status: Ordered budesonide 0.5 mg/2 mL inhalation suspension 0.5 mg = 2 mL, NEB, BID, # 120 mL, 11 Refill(s), Pharmacy: [id number] Start Date: 06/26/22 Stop Date: 06/21/23 Status: Ordered ibuprofen 200 mg oral tablet 2 tab, Oral, As Directed, as needed, 0 Refill(s) Start Date: 03/13/22 Status: Ordered ipratropium-albuterol 0.5 mg-2.5 mg/3 mL inhalation solution See Instructions, USE 1 VIAL VIA NEBULIZER EVERY 4 HOURS NEEDED, # 90 mL, 0 Refill(s), Pharmacy:[facility] #[id number] Start Date: 04/03/22 Status: Ordered loratadine 10 mg oral tablet 1 tab, Oral, Daily, 0 Refill(s) Start Date: 03/13/22 Status: Ordered methocarbamol 500 mg oral tablet 500 mg = 1 tab, Oral, BID, PRN pain, mild, Not to exceed 4 tablets in 24-hour. Medication to be taken with pain reliever of choice, # 40 tab, 1 Refill(s), Pharmacy: [facility], 146, cm, 07/26/22 7:23:00 EDT, Height/Length Dosing, 67, kg, 1... Start Date: 08/15/22 Status: Ordered montelukast 10 mg oral tablet See Instructions, TAKE 1 TABLET BY MOUTH EVERY DAY, # 90 tab, 3 Refill(s), Pharmacy: [facility] Start Date: 06/12/22 Status: Ordered Nebulizer Machine with tubbing Nebulizer Machine with tubbing, Order for Nebulizer with tubbing [facility], Supply, See instructions, # 1 EA, 0 Refill(s) Start Date: 04/17/22 Status: Ordered PORTABLE NEBULIZER WITH MASK AND TUBING PORTABLE NEBULIZER WITH MASK AND TUBING, DX: (COPD J44.9) NEEDS PORTABLE NEBULIZER MACHINE WITH MASK AND TUBING, Supply, See instructions, # 1 EA, 0 Refill(s) Start Date: 05/14/22 Status: Ordered Spiriva HandiHaler 18 mcg inhalation capsule 1 cap, Inhale, Daily, 0 Refill(s) Start Date: 03/13/22 Status: Ordered Trelegy Ellipta 100 mcg-62.5 mcg-25 mcg/inh inhalation powder 1 puffs, Inhale, Daily, at the same time every day, # 60 EA, 2 Refill(s), Pharmacy: [facility] Start Date: 06/26/22 Status: Ordered Tylenol Extra Strength 500 mg oral tablet 0 Refill(s) Start Date: 03/13/22 Status: Ordered Problem List Condition Confirmation Course Effective Dates Status Health St [facility]us Informant Allergic rhinitis Confirmed Active Asthma Confirmed Active Chronic obstructive [...] Female 1Quit 06/27/2018 Patient Care team information Personnel Name: Alicia Castorena MD Address: Address: [place] [address]- [place] Name: Denise Contreras
--- OUTSIDE RECORDS SUMMARY | 2023-09-06 15:07 | XMS_ITS | Continuity of Care Document ---
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(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) - Contact with and (suspected) exposure to COVID-19(Final) - Discharge Disposition: Home Attending Physician: Loretta Berger MD Admitting Physician: Loretta Berger MD Allergies, Adverse Reactions, Alerts Substance Reaction Severity Status HOUSE DUST Unknown Active WEED POLLEN Unknown Active ANIMAL DANDER Unknown Active CIGARETTE SMOKE Unknown Active codeine Itching Unknown Active amoxicillin Itching Unknown Active sulfa drugs Itching Unknown Active Assessment and Plan Future Appointments Functional Status 07/26/22 Family Member Travel History No recent t [...] Wixela, # 3 EA, 3 Refill(s), [id number] Start Date: 04/13/22 Status: Ordered albuterol 2.5 mg/3 mL (0.083%) inhalation solution 2.5 mg = 3 mL, NEB, every 4 hr, PRN as needed for wheezing, # 90 mL, 0 Refill(s), Pharmacy: [facility] [id number], 149.96, cm, 07/10/22 9:07:00 EDT, Height/Length Dosing, 65.77, kg, 07/10/22 9:07:00 EDT, Weight Dosing Start Date: 07/10/22 Status: Ordered albuterol 90 mcg/inh aerosol inhaler 180 mcg 2 puffs, Inhale, every 4 hr, PRN as needed, # 18 g, 1 Refill(s), Pharmacy: [facility] [id number] Start Date: 06/20/22 Status: Ordered budesonide 0.5 mg/2 mL inhalation suspension 0.5 mg = 2 mL, NEB, BID, # 120 mL, 11 Refill(s), Pharmacy: [facility] Start Date: 06/26/22 Stop Date: 06/21/23 Status: Ordered cyclobenzaprine 10 mg oral tablet 10 mg = 1 tab, Oral, TID, PRN as needed for spasm, X 10 days, # 30 tab, 0 Refill(s), 08/05/22 11:50:00 EDT, Pharmacy: [facility], 146, cm, 07/26/22 7:23:00 EDT, Height/Length Dosing, 67, kg, 07/26/22 7:23:00 EDT, Weight Dosing Start Date: 07/26/22 Stop Date: 08/05/22 Status: Ordered Dilaudid 2 mg oral tablet 2 mg = 1 tab, Oral, every 4 hr, PRN as needed for pain, X 5 days, # 20 tab, 0 Refill(s), 07/31/22 11:50:00 EDT, Pharmacy: [facility], 146, cm, 07/26/22 7:23:00 EDT, Height/Length Dosing, 67, kg, 07/26/22 7:23:00 EDT, Weight Dosing Start Date: 07/26/22 Stop Date: 07/31/22 Status: Ordered ibuprofen 200 mg oral tablet 2 tab, Oral, As Directed, as needed, 0 Refill(s) Start Date: 03/13/22 Status: Ordered ipratropium-albuterol 0.5 mg-2.5 mg/3 mL inhalation solution See Instructions, USE 1 VIAL VIA NEBULIZER EVERY 4 HOURS NEEDED, # 90 mL, 0 Refill(s), Pharmacy:[facility] #[id number] Start Date: 04/03/22 Status: Ordered loratadine 10 mg oral tablet 1 tab, Oral, Daily, 0 Refill(s) Start Date: 03/13/22 Status: Ordered montelukast 10 mg oral tablet See Instructions, TAKE 1 TABLET BY MOUTH EVERY DAY, # 90 tab, 3 Refill(s), Pharmacy: [id number] Start Date: 06/12/22 Status: Ordered Nebulizer Machine with tubbing Nebulizer Machine with tubbing, Order for Nebulizer with tubbing [facility], Supply, See instructions, # 1 EA, 0 Refill(s) Start Date: 04/17/22 Status: Ordered oxyCODONE 5 mg oral capsule 5 mg = 1 cap, Oral, every 6 hr, PRN as needed for pain, X 5 days, # 15 cap, 0 Refill(s), 07/31/22 12:25:00 EDT, Pharmacy: [facility], 146, cm, 07/26/22 7:23:00 EDT, Height/Length Dosing, 67, kg, 07/26/22 7:23:00 EDT, Weight Dosing Start Date: 07/26/22 Stop Date: 07/31/22 Status: Ordered PORTABLE NEBULIZER WITH MASK AND [...] day, # 60 EA, 2 Refill(s), Pharmacy: [facility] 4152 Start Date: 06/26/22 Status: Ordered Tylenol Extra [...] Needs additional imaging evaluation 4WNL/Neg for HPV Results Laboratory List Name Date SARS-CoV-2 (COVID-19) RNA (ID Now) CBC w/ Diff 07/26/22 Comprehensive Metabolic Panel 07/26/22 Automated Diff 07/26/22 Most recent to oldest [Reference Range]: 1 WBC [5.0-10.0 x10^3/mcL] 10.9 x10^3/mcL *HI* (07/26/22 7:32 AM) RBC [4.1-5.3 x10^6/mcL] 4.3 x10^6/mcL (07/26/22 7:32 AM) Neutro Auto [40.0-75.0 %] 53.8 % (07/26/22 7:32 AM) Lymph Auto [20.0-50.0 %] 35.3 % (07/26/22 7:32 AM) Hyde Auto [2.0-15.0 %] 8.4 % (07/26/22 7:32 AM) Basophil Auto [0.0-1.0 %] 0.5 % (07/26/22 7:32 AM) BUN [7-18 mg/dL] 19 mg/dL *HI* (07/26/22:32 AM) Glucose Level [74-106 mg/dL] 103 mg/dL (07/26/22:32 AM) Potassium Level [3.5-5.1 mmol/L] 4.1 mmo l/L (07/26/22:32 AM) MCV [80.0-103.0 fL] 97.7 fL (07/26/22:32 AM) AST [15-37 unit/L] 14 unit/L *LOW* (07/26/22:32 AM) ALT [16-63 unit/L] 45 unit/L (07/26/22:32 AM) MCHC [31.0-35.0 g/dL] 33.4 g/dL (07/26/22 7:32 AM) Sodium Level [136-145 mmol/L] 138 mmol/L (07/26/22 7:32 AM) Hct [37.0-47.0 %] 42.2 % (07/26/22:32 AM) Calcium Level [8.5-10.1 mg/dL] 9.1 mg/dL (07/26/22 7:32 AM) Albumin Level [3.4-5.0 g/dL] 3.9 g/dL (07/26/22 7:32 AM) Protein Total [6.4-8.2 g/dL] 7.5 g/dL (07/26/22 7:32 AM) MCH [26.0-32.0 pg] 32.6 pg *HI* (07/26/22:32 AM) Neutro Absolute 5.9 x10^3/mcL *NA* (07/26/22 7:32 AM) Bilirubin Total [0.2-1.0 mg/dL] 0.4 mg/d L (07/26/22 7:32 AM) Hgb [12.0-16.0 g/dL] 14.1 g/dL (07/26/22 7:32 AM) Alk Phos [46-146 unit/L] 110 unit/L (07/26/22 7:32 AM) Platelets [130-450 x10^3/mcL] 323 x10^3/ mcL (07/26/22 7:32 AM) CO2 [21-32 mmol/L] 24 mmol/L (07/26/22 7:32 AM) eGFR Non-AA [>=60] 101 (07/26/22 7:32 AM) eGFR AA [>=60] 101 (07/26/22 7:32 AM) Chloride Level [98-107 mmol/L] 105 mmol/ L (07/26/22 7:32 AM) RDW-CV [11.7-17.0 %] 13.4 % (07/26/22 7:32 AM) Imm Gran Auto [0.0-0.9 %] 0.6 % (07/26/22 7:32 AM) Creatinine Level [0.55-1.02 mg/dL] 0.69 mg/dL (07/26/22 7:32 AM) SARS-CoV-2 (COVID-19) RNA (ID Now) [Not Detected] Not Detected (07/26/22 7:45 AM) Anion Gap [8-16 mmol/L] 9 mmol/L (07/26/22 7:32 AM) Eos, Auto [1.0-6.0 %] 1.4 % (07/26/22 7:32 AM) Vital Signs Most recent to oldest [Reference Range]: 1 2 3 Temperature Temporal Artery [36-38 Deg C] 35.6 Deg C *LOW* (07/26/22 10:53 AM) 35.9 Deg C *LOW* (07/26/22 9:14 AM) 36.2 Deg C (07/26/22 7:15 AM) Temperature Temporal Artery (DegF) [97.3-100 Deg F] 96.08 Deg F *LOW* (07/26/22 10:53 AM) Peripheral Pulse Rate [60-100 bpm] 103 bpm *HI* (07/26/22 10:53 AM) 109 bpm *HI* (07/26/22 10:27 AM) 90 bpm (07/26/22 9:14 AM) Respiratory Rate [12-24 br/min] 24 br/min (07/26/22 10:27 AM) 28 br/min *HI* (07/26/22 9:14 AM) 20 br/min (07/26/22 7:15 AM) Blood Pressure [90-140/60-90 mmHg] 133/85mmHg (07/26/22 10:53 AM) 144/74mmHg *HI* (07/26/22 10:27 AM) 105/78mmHg (07/26/22 9:14 AM) Weight Dosing 67.00 kg (07/26/22 7:23 AM) Weight Estimated 67.00 kg (07/26/22 7:15 AM) Height/Length Dosing 146.000 cm (07/26/22 7:23 AM) Height/Length Estimated 146.000 cm (07/26/22 7:15 AM) Social History Social History Type Response Tobacco Former tobacco user Tobacco Use:. 1 Sex Female 1Quit 06/27/2018 Hospital Discharge Instructions Patient Education 07/26/2022 14:51:20 Hypoxia Hypoxia Hypoxia is a condition that happens when there is a lack of oxygen in the body's tissues and organs. When there is not enough oxygen, organs cannot work as they should. This causes serious problems throughout the body and in the brain. What are the causes? This condition may be caused by: ??? Exposure to high altitude. ??? A collapsed lung (pneumothorax). ??? Lung infection (pneumonia). ??? Lung injury. ??? Long-term (chronic) lung disease, such as COPD (chronic obstructive pulmonary disease). ??? Blood collecting in the chest cavity (hemothorax). ??? Food, saliva, or vomit getting into the airway (aspiration). ??? Reduced blood flow (ischemia). ??? Severe blood loss. ??? Slow or shallow breathing (hypoventilation). ??? Blood disorders, such as anemia. ??? Carbon monoxide poisoning. ??? The heart suddenly stopping (cardiac arrest). ??? Anesthetic medicines. ??? Drowning. ??? Choking. What are the signs or symptoms? Symptoms of this condition include: ??? Headache. ??? Fatigue. ??? Drowsiness. ??? Forgetfulness. ??? Nausea. ??? Confusion. ??? Shortness of breath. ??? Dizziness. ??? Bluish color of the skin, lips, or nail beds (cyanosis). ??? Change in consciousness or awareness. If hypoxia is not treated, it can lead to convulsions, loss of consciousness (coma), or brain damage. How is this diagnosed? This condition may be diagnosed based on: ??? A physical exam. ??? Blood tests. ??? A test that measures how much oxygen is in your blood (pulse oximetry). This is done with a sensor that is placed on your finger, toe, or earlobe. ??? Chest X-ray. ??? Tests to check your lung function (pulmonary function tests). ??? A test to check the electrical activity of your heart (electrocardiogram, ECG). You may have other tests to determine the cause of your hypoxia. How is this treated? Treatment for this condition depends on what is causing the hypoxia. You will likely be treated with oxygen therapy. This may be done by giving you oxygen through a face mask or through tubes in yournose. Your health care provider may also recommend other therapies to treat the underlying cause of your hypoxia. Follow these instructions at home: ??? Take rcsd-jgs-wgcybtz and prescription medicines only as told by your health care provider. ??? Do not use any products that contain nicotine or tobacco, such as cigarettes and e-cigarettes. If you need help quitting, ask your health care provider. ??? Avoid secondhand smoke. ??? Work with your health care provider to manage any chronic conditions you have that may be causing hypoxia, such as COPD. ??? Keep all follow-up visits as told by your health care provider. This is important. Contact a health care provider if: ??? You have a fever. ??? You have trouble breathing, even after treatment. ??? You become extremely short of breath when you exercise. Get help right away if: ??? Your shortness of breath gets worse, especially with normal or very little activity. ??? Your skin, lips, or nail beds have a bluish color. ??? You become confused or you cannot think properly. ??? You have chest pain. Summary ??? Hypoxia is a condition that happens when there is a lack of oxygen in the body's tissues and organs. ??? If hypoxia is not treated, it can lead to convulsions, loss of consciousness (coma), or brain damage. ??? Symptoms of hypoxia can include a headache, shortness of breath, confusion, nausea, and a bluish skin color. ??? Hypoxia has many possible causes, including exposure to high altitude, carbon monoxide poisoning, or other health issues, such as blood disorders or cardiac arrest. ??? Hypoxia is usually treated with oxygen therapy. This information is not intended to replace advice given to you by your health care provider. Make sure you discuss any questions you have with your health care provider. Document Revised: 06/08/2021 Document Reviewed: 06/08/2021 [employer] Patient Education ?? 2021 [employer]. 07/26/2022 14:51:10 Acute Back Pain, Adult Acute Back Pain, [...] Managing pain, stiffness, and swelling ??? Take spno-qfy-gntmajg and prescription medicines only as told by [...] day. ??? Do not sit, drive, or extractor machine operator one place for more than 30 minutes [...] less stress on your back. ??? Take wegw-gnj-fazflko and prescription medicines only as told by your health care provider, andapply heat or ice as told. This information is not intended to replace advice given to you by your health care provider. Make sure you discuss any questions you have with your health care provider. Document Revised: 12/29/2021 Document Reviewed: 12/29/2021 Else[employer] Patient Education ?? 2021 [employer]. Follow Up Care 07/26/2022 07:15:10 With:Follow up with primary care provider Address: When:1 week Patient Care team information Personnel Name: Alicia Castorena MD Address: Address: [place] [facility] [place], [place] [address] Name: Denise Contreras
--- OUTSIDE RECORDS SUMMARY | 2023-09-06 15:07 | XMS_ITS | Continuity of Care Document ---
Author Name Unknown Organization [facility] Address [address] [place] [address] Care Team Providers Care Manager Of Training And Development Name Role Phone Alicia Castorena Primary Care Physician [phone] Denise Contreras Unavailable Unavailable [facility] - 07/19/[address] [address] Discharge Disposition: Home or Self Care Attending [...] Wixela, # 3 EA, 3 Refill(s), Pharmacy: [facility] #[id number] Start Date: 04/13/22 Status: Ordered albuterol 2.5 mg/3 mL (0.083%) inhalation solution 2.5 mg = 3 mL, NEB, every 4 hr, PRN as needed for wheezing, # 90 mL, 0 Refill(s), Pharmacy: [place] [facility] [address], 149.96, cm, 07/10/22 9:07:00 EDT, Height/Length Dosing, 65.77, kg, 07/10/22 9:07:00 EDT, Weight Dosing Start Date: 07/10/22 Status: Ordered albuterol 90 mcg/inh aerosol inhaler 180 mcg 2 puffs, Inhale, every 4 hr, PRN as needed, # 18 g, 1 Refill(s), Pharmacy: [facility] Start Date: 06/20/22 Status: Ordered Azithromycin 5 Day Dose Pack 250 mg oral tablet 500 mg = 2 tab, Oral, Once, # 2 tab, 0 Refill(s), Pharmacy: [place] [address] Start Date: 06/20/22 Status: Ordered Azithromycin 5 Day Dose Pack 250 mg oral tablet 250 mg = 1 tab, Oral, Daily, # 4 tab, 0 Refill(s), Pharmacy: [place] [address] Start Date: 06/20/22 Stop Date: 06/24/22 Status: Ordered budesonide 0.5 mg/2 mL inhalation suspension 0.5 mg = 2 mL, NEB, BID, # 120 mL, 11 Refill(s), Pharmacy: [place] [address] Start Date: 06/26/22 Stop Date: 06/21/23 Status: Ordered ibuprofen 200 mg oral tablet 2 tab, Oral, As Directed, as needed, 0 Refill(s) Start Date: 03/13/22 Status: Ordered ipratropium-albuterol 0.5 mg-2.5 mg/3 mL inhalation solution See Instructions, USE 1 VIAL VIA NEBULIZER EVERY 4 HOURS NEEDED, # 90 mL, 0 Refill(s), [id number] Start Date: 04/03/22 Status: Ordered loratadine 10 mg oral tablet 1 tab, Oral, Daily, 0 Refill(s) Start Date: 03/13/22 Status: Ordered montelukast 10 mg oral tablet See Instructions, TAKE 1 TABLET BY MOUTH EVERY DAY, # 90 tab, 3 Refill(s), Pharmacy: [facility] Start Date: 06/12/22 Status: Ordered Nebulizer Machine with tubbing Nebulizer Machine with tubbing, Order for Nebulizer with tubbing [email or web address], [facility], See instructions, # 1 EA, 0 [...] day, # 60 EA, 2 Refill(s), Pharmacy: [facility] Start Date: 06/26/22 Status: Ordered Tylenol Extra Strength 500 mg oral tablet 0 Refill(s) Start Date: 03/13/22 Status: Ordered Problem List Condition Effective Dates Status Health Status Inform ant Allergic rhinitis(Confirmed) Active Asthma(Confirmed) Active Chronic obstructive lung disease(Confirmed) 07/06/19 Active Cough(Confirmed) Active Breast cancer(Confirmed) 1 Active Nicotine dependence(Confirmed) Active 1right breast. Lumpectomy /radioation Procedures Procedure Date Related Diagnosis Body Site Status CT of chest without contrast 12/18/21 Completed Lumpectomy of right breast 1 11/19/21 Completed Ultrasound of right breast 2 09/06/21 Completed Mammogram 3 08/10/21 Completed PAP smear preparation 4 07/24/17 C ompleted TL - Tubal ligation 10/20/87 Compl eted Appendectomy 10/20/84 Completed Cholecystectomy 12/31/84 Completed Tonsillectomy 10/20/67 Completed 1with radiation 2Right ultrasound guided breast biopsy with vacum assistance 3BI-RADS Category: Needs additional imaging evaluation 4WNL/Neg for HPV Social History Social History Type Response Tobacco Former tobacco user Tobacco Use:. 1 Sex Female 1Quit 06/27/2018 Patient Care team information Personnel Name: Alicia Castorena MD Address: Address: [place] [address]- [place] Name: Denise Contreras
--- OUTSIDE RECORDS SUMMARY | 2023-09-06 15:07 | XMS_ITS | Continuity of Care Document ---
Author Name Unknown Organization [facility] Address [address] [place] [address] Care Team Providers Care Template Inspector Name Role Phone Alicia Castorena Primary Care Physician Denise Contreras Unavailable Unavailable [facility] 08/11/22 - 08/11/22 [facility] [address] [place] [address] us Discharge Disposition: Home or Self Care Attending Physician: Misty Llanos Admitting Physician: Misty Llanos Referring Physician: Misty Llanos Allergies, Adverse Reactions, Alerts Substance Reaction Severity [...] Wixela, # 3 EA, 3 Refill(s), Pharmacy: [facility] #[id number] Start Date: 04/13/22 Status: Ordered albuterol 2.5 mg/3 mL (0.083%) inhalation solution 2.5 mg = 3 mL, NEB, every 4 hr, PRN as needed for wheezing, # 90 mL, 0 Refill(s), Pharmacy: [place] [address], 149.96, cm, 07/10/22 9:07:00 EDT, Height/Length Dosing, 65.77, kg, 07/10/22 9:07:00 EDT, Weight Dosing Start Date: 07/10/22 Status: Ordered albuterol 90 mcg/inh aerosol inhaler 180 mcg 2 puffs, Inhale, every 4 hr, PRN as needed, # 18 g, 1 Refill(s), Pharmacy: [facility] Start Date: 06/20/22 Status: Ordered budesonide 0.5 mg/2 mL inhalation suspension 0.5 mg = 2 mL, NEB, BID, # 120 mL, 11 Refill(s), Pharmacy: [facility] Start Date: 06/26/22 Stop Date: 06/21/23 Status: Ordered ibuprofen 200 mg oral tablet 2 tab, Oral, As Directed, as needed, 0 Refill(s) Start Date: 03/13/22 Status: Ordered ipratropium-albuterol 0.5 mg-2.5 mg/3 mL inhalation solution See Instructions, USE 1 VIAL VIA NEBULIZER EVERY 4 HOURS NEEDED, # 90 mL, 0 Refill(s), Pharmacy:[facility] #[id number] Start Date: 04/03/22 Status: Ordered loratadine 10 mg oral tablet 1 tab, Oral, Daily, 0 Refill(s) Start Date: 03/13/22 Status: Ordered montelukast 10 mg oral tablet See Instructions, TAKE 1 TABLET BY MOUTH EVERY DAY, # 90 tab, 3 Refill(s), Pharmacy: [facility] Start Date: 06/12/22 Status: Ordered Nebulizer Machine with tubbing Nebulizer Machine with tubbing, Order for Nebulizer with tubbing [facility], Supply, See instructions, # 1 [...] day, # 60 EA, 2 Refill(s), Pharmacy: [id number] Start Date: 06/26/22 Status: Ordered Tylenol Extra [...] Castorena MD Address: Address: [place] [address]- [place] Name: Denise Contreras
--- OUTSIDE RECORDS SUMMARY | 2023-09-06 15:07 | XMS_ITS | Continuity of Care Document ---
Author Name Unknown Organization [facility] Address [address] [place] [address] Care Team Providers Care Violin Maker Hand Name Role Phone Alicia Castorena Primary Care Physician [phone] Denise Contreras Unavailable Encounter [facility] Date(s): 04/03/23 - 04/03/23 [facility] [address] [place] [address] Discharge Disposition: Home or Self Care Attending Physician: Denise Torres Admitting Physician: Denise Torres Referring Physician: Denise Torres Allergies, Adverse Reactions, Alerts Substance Reaction Severity Status HOUSE DUST Unknown Active WEED POLLEN Unknown Active ANIMAL DANDER Unknown Active CIGARETTE SMOKE Unknown Active codeine Itching Unknown Active amoxicillin Itching Unknown Active sulfa drugs Itching Unknown Active Assessment and Plan Future Appointments Immunizations Given and Recorded Vaccine Date Status Refusal Reason influenza, unspecified formulation 1 09/19/22 Cameron rded [...] 09/30/12 Cameron rded tetanus-diphth toxoids (Td) adult/adol 3 05/04/19 Recorded pneumococcal 23-polyvalent vaccine 4 05/04/19 Cameron rded tetanus/diphth/pertuss (Tdap) adult/adol 07/15/08 Recorded 1Result Comment: patient staetdt the vaccine was through [facility] 2Result Comment: tolerated well 3Result Comment: Tolerated well 4Result Comment: Tolerated well Medications Albuterol (Eqv-Ventolin HFA) 90 mcg/inh inhalation aerosol See Instructions, INHALE 2 PUFFS BY MOUTH EVERY 4 HOURS NEEDED, # 18 g, 2 Refill(s), Pharmacy: [id number], 146, cm, 07/26/22 7:23:00 EDT, Height/Length Dosing, 67, kg, 07/26/22 7:23:00 EDT, Weight Dosing Start Date: 03/19/23 Status: Ordered Albuterol (Eqv-Ventolin HFA) 90 mcg/inh inhalation aerosol 2 puffs, Inhale, every 4 hr, PRN NEEDED, # 18 g, 0 Refill(s), Pharmacy: [id number], 146, cm, 07/26/22 7:23:00 EDT, Height/Length Dosing, 67, kg, 07/26/22 7:23:00 EDT, Weight Dosing Start Date: 02/24/23 Status: Ordered ibuprofen 200 mg oral tablet 2 tab, Oral, As Directed, as needed, 0 Refill(s) Start Date: 03/13/22 Status: Ordered ipratropium-albuterol 0.5 mg-2.5 mg/3 mL inhalation solution See Instructions, USE 1 AMPULE IN NEBULIZER BY MOUTH EVERY 4 HOURS NEEDED, # 180 mL, 11 Refill(s), Pharmacy: [id number], 146, cm, 07/26/22 7:23:00 EDT, Height/Length Dosing, 67, kg, 07/26/22 7:23:00 EDT, Weight Dosing Start Date: 04/01/23 Status: Ordered loratadine 10 mg oral tablet 1 tab, Oral, Daily, 0 Refill(s) Start Date: 03/13/22 Status: Ordered montelukast 10 mg oral tablet See Instructions, TAKE 1 TABLET BY MOUTH EVERY DAY, # 90 tab, 3 Refill(s), Pharmacy: [id number] Start Date: 06/12/22 Status: Ordered Nebulizer Machine with tubbing Nebulizer Machine with tubbing, Order for Nebulizer with tubbing [facility], See instructions, # 1 EA, 0 [...] 0 Refill(s) Start Date: 05/14/22 Status: Ordered Tylenol Extra Strength 500 mg oral tablet 0 Refill(s) Start Date: 03/13/22 Status: Ordered Zoloft 25 mg oral tablet 25 mg = 1 tab, Oral, Daily, # 90 tab, 0 Refill(s), Pharmacy: [id number], 146, cm, 07/26/22 7:23:00 EDT, Height/Length Dosing, 67, kg, 07/26/22 7:23:00 EDT, Weight Dosing Start Date: 03/13/23 Status: Ordered Problem List Condition Confirmation Course [...] Alicia Castorena MD Position: Physician Member Role: Primary Care Physician Address: Address: [facility] [address] Name: Denise Contreras Position: Ambulatory - RN/PRICING SPECIALIST ([place]) Member Role: Business Systems Developer Name: Dylan Cummings MD Position: No Access Member Role: Pastoral Counselor Address: Address: [address] [place] [address] Care Team Related Persons Name: ZOFIA TELLEZ Address: Home
--- OUTSIDE RECORDS SUMMARY | 2023-09-06 15:07 | XMS_ITS | Continuity of Care Document ---
Author Name Unknown Organization [facility] Address [address] [place] [address] Care Team Providers Care Coating Engineer Name Role Phone Alicia Castorena Primary Care Physician Denise Contreras Unavailable Unavailable [facility] - 07/31/[facility] [address] [place] [address] Discharge Disposition: Home or Self Care Attending Physician: Loretta Berger MD Admitting Physician: Loretta Berger MD Referring Physician: Loretta Berger MD Allergies, Adverse Reactions, [...] [place], # 3 EA, 3 Refill(s), Pharmacy: [facility] #[id number] Start Date: 04/13/22 Status: Ordered albuterol 2.5 mg/3 mL (0.083%) inhalation solution 2.5 mg = 3 mL, NEB, every 4 hr, PRN as needed for wheezing, # 90 mL, 0 Refill(s), Pharmacy: [facility], 149.96, cm, 07/10/22 9:07:00 EDT, Height/Length Dosing, 65.77, kg, 07/10/22 9:07:00 EDT, Weight Dosing Start Date: 07/10/22 Status: Ordered albuterol 90 mcg/inh aerosol inhaler 180 mcg 2 puffs, Inhale, every 4 hr, PRN as needed, # 18 g, 1 Refill(s), Pharmacy: [id number] Start Date: 06/20/22 Status: Ordered budesonide 0.5 mg/2 mL inhalation suspension 0.5 mg = 2 mL, NEB, BID, # 120 mL, 11 Refill(s), Pharmacy: [id number] Start Date: 06/26/22 Stop Date: 06/21/23 Status: Ordered cyclobenzaprine 10 mg oral tablet 10 mg = 1 tab, Oral, TID, PRN as needed for spasm, X 10 days, # 30 tab, 0 Refill(s), 08/05/22 11:50:00 EDT, Pharmacy: [id number], 146, cm, 07/26/22 7:23:00 EDT, Height/Length Dosing, 67, kg, 07/26/22 7:23:00 EDT, Weight Dosing Start Date: 07/26/22 Stop Date: 08/05/22 Status: Ordered ibuprofen 200 mg oral tablet 2 tab, Oral, As Directed, as needed, 0 Refill(s) Start Date: 03/13/22 Status: Ordered ipratropium-albuterol 0.5 mg-2.5 mg/3 mL inhalation solution See Instructions, USE 1 VIAL VIA NEBULIZER EVERY 4 HOURS NEEDED, # 90 mL, 0 Refill(s), Pharmacy:[facility] #[id number] Start Date: 04/03/22 Status: Ordered loratadine 10 mg oral tablet 1 tab, Oral, Daily, 0 Refill(s) Start Date: 03/13/22 Status: Ordered montelukast 10 mg oral tablet See Instructions, TAKE 1 TABLET BY MOUTH EVERY DAY, # 90 tab, 3 Refill(s), Pharmacy: [id number] Start Date: 06/12/22 Status: Ordered Nebulizer Machine with tubbing Nebulizer Machine with tubbing, Order for Nebulizer with tubbing [facility], See instructions, # 1 EA, 0 [...] day, # 60 EA, 2 Refill(s), Pharmacy: [id number] Start Date: 06/26/22 Status: Ordered Tylenol Extra [...] Most recent to oldest [Reference Range]: 1 Heart Rate Monitored [60-100 bpm] 85 bpm (07/31/22 10:37 AM) Social History Social History Type Response Tobacco Former tobacco user Tobacco Use:. 1 Sex Female 1Quit 06/27/2018 Patient Care team information Personnel Name: Alicia Castorena MD Address: Address: [place] [address]- [place] Name: Denise Contreras
== END 2023-09-06 15:04 | disposition home or self-care (01) ==
LOC: LBO 15:05
PROVIDERS: PCP Family Medicine; Visit Provider Student in an Organized Health Care Education/Training Program
DX: J45.909 Unspecified asthma, uncomplicated (principal)
CPT/HCPCS: 36415; 85025

== ENCOUNTER → 2024-07-21 12:38 | Outpatient (BNVA) | payer MEDICARE, BC, SELFPAY | PROVIDERS: PCP Family Medicine; Referring Provider Family Medicine; Visit Provider Physician Assistant Surgical | DX: J44.9 Chronic obstructive pulmonary disease, unspecified (principal); J45.909 Unspecified asthma, uncomplicated; R91.1 Solitary pulmonary nodule; Z23 Encounter for immunization | CPT/HCPCS: 90656; 99214; G0008 ==

== ENCOUNTER → 2024-10-26 14:25 | Outpatient (BNVA) | payer MEDICARE, BC, SELFPAY | PROVIDERS: PCP Family Medicine; Referring Provider Family Medicine; Visit Provider Physician Assistant Surgical | DX: J44.9 Chronic obstructive pulmonary disease, unspecified (principal); J45.909 Unspecified asthma, uncomplicated; R91.1 Solitary pulmonary nodule | CPT/HCPCS: 36415; 99214 ==

== ENCOUNTER 2024-10-26 16:25 | Outpatient (REF) | payer MEDICARE, BC, SELFPAY ==
[2024-10-26 16:29] LABS: Abs Immature Grans 0.05 10^3/uL (0.0-0.06); Absolute Basophil Count 0.03 10^3/uL (0.0-0.2); Absolute Eosinophil Count 0.07 10^3/uL (0.0-0.7); Absolute Monocyte Count 0.63 10^3/uL (0.1-0.8); Absolute Neutrophil Count 4.12 10^3/uL (1.2-6.7); Basophils % 0.5 %; Eosinophils % 1.1 %; HCT 33.1 % (36.0-46.0); HGB 10.6 g/dL (11.2-15.7); Immature Grans % 0.8 %; Lymphocytes % 24.6 %; MCH 31.5 pg (27.0-33.0); MCV 99 fL (80-95); MPV 9.5 fL (8.0-11.0); Monocytes % 9.7 %; Neutrophils % 63.3 %; Platelet Count 275 10^3/uL (130-400); RBC 3.36 10^6/uL (3.93-5.22); RDW-SD 46.2 fL
--- OUTSIDE RECORDS SUMMARY | 2024-10-26 16:30 | XMS_ITS | Continuity of Care Document ---
Author Organization [facility] Address [address] [place] [address] Care Team Providers Care Boat Officer Name Role Phone Alicia Castorena Primary Care Physician [phone] Denise Contreras Unavailable Unavailable Encounter [facility] Date(s): 12/11/23 - 12/11/23 [facility] [address] [place] [address] us Encounter Diagnosis COPD exacerbation(Discharge Diagnosis) - 12/11/23 RSV bronchiolitis(Discharge Diagnosis) - 12/11/23 Discharge Disposition: Home or Self Care Attending Physician: Contreras Charlton MD Admitting Physician: Contreras Charlton MD Allergies, Adverse Reactions, Alerts Substance Reaction [...] Comment: patient staetdt the vaccine was through [facility] 2Result Comment: tolerated well 3Result Comment: Tolerated well 4Result Comment: Tolerated well Medications Albuterol (Eqv-Ventolin HFA) 90 mcg/inh inhalation aerosol See Instructions, INHALE 2 PUFFS BY MOUTH EVERY 4 HOURS NEEDED, # 18 g, 0 Refill(s), Pharmacy: [facility] #[id number], 146, cm, 07/26/22 7:23:00 EDT, Height/Length Dosing, [...] NEBULIZER DAILY Start Date: 07/09/23 Status: Ordered doxycycline hyclate 100 mg oral capsule 100 mg = 1 cap, Oral, BID, # 14 cap, 0 Refill(s), Pharmacy: [facility] #[id number], 146, cm, 08/09/23 12:12:00 EDT, Height/Length Dosing, 80.2, kg, 08/09/23 12:12:00 EDT, Weight Dosing Start Date: 10/10/23 Stop Date: 10/17/23 Status: Ordered ibuprofen 200 mg oral tablet 2 tab, Oral, As Directed, as needed, 0 Refill(s) Start Date: 03/13/22 Status: Ordered ipratropium-albuterol 0.5 mg-2.5 mg/3 mL inhalation solution See Instructions, USE 1 AMPULE IN NEBULIZER BY MOUTH EVERY 4 HOURS NEEDED, # 180 mL, 11 Refill(s), Pharmacy: [facility] #[id number], 146, cm, 07/26/22 7:23:00 EDT, Height/Length Dosing, 67, kg, 07/26/22 7:23:00 EDT, Weight Dosing Start Date: 04/01/23 Status: Ordered loratadine 10 mg oral tablet 1 tab, Oral, Daily, 0 Refill(s) Start Date: 03/13/22 Status: Ordered LORazepam 0.5 mg oral tablet See Instructions, 1 tablet twice daily as needed, # 60 tab, 0 Refill(s), Pharmacy: [facility] #[id number], 146, cm, 08/09/23 12:12:00 EDT, Height/Length Dosing, 80.2, kg, 08/09/23 12:12:00 EDT, Weight Dosing Start Date: 10/24/23 Status: Ordered montelukast 10 mg oral tablet See Instructions, TAKE 1 TABLET BY MOUTH EVERY DAY, # 90 tab, 3 Refill(s), Pharmacy: [id number] Start Date: 06/12/22 Status: Ordered Nebulizer Machine with tubbing Nebulizer Machine with tubbing, Order for Nebulizer with tubbing [facility], See instructions, # 1 [...] 0 Refill(s) Start Date: 05/14/22 Status: Ordered predniSONE 10 mg oral tablet See Instruction, Oral, Daily, 4 tabs daily x3 days, 3 tabs daily x3 days, 2 tabs daily x3 days, 1 tab daily x3 days, # 30 tab, 0 Refill(s), 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, Pharmacy: [facility] #[id number], 146, cm, 08/09/23 12:12:00 EDT, Height/Length Dosing, 80.2, kg, 08/09/23 12:12:00 EDT, Weight Dosing Start Date: 12/11/23 Stop Date: 12/23/23 Status: Ordered predniSONE 10 mg oral tablet See Instruction, Oral, Daily, 4 tabs daily x3 days, 3 tabs daily x3 days, 2 tabs daily x3 days, 1 tab daily x3 days, # 30 tab, 0 Refill(s), Pharmacy: [facility] #[id number], 146, cm, 08/09/23 12:12:00 EDT, Height/Length Dosing, 80.2, kg, 08/09/23 12:12:00 EDT, Weight Dosing Start Date: 10/10/23 Status: Ordered sertraline 25 mg oral tablet 1 tab, Oral, Daily, # 90 tab, 1 Refill(s), Pharmacy: [id number], 146, cm, 08/09/23 12:12:00 EDT, Height/Length Dosing, 80.2, kg, 08/09/23 12:12:00 EDT, Weight Dosing Start Date: 11/29/23 Status: Ordered Tezspire Pre-filled Pen 210 mg/1.91 mL subcutaneous solution 0 Refill(s) Start Date: 10/08/23 Status: Ordered Problem List Condition Confirmation Course [...] HPV Results Laboratory List Name Date SARS-CoV-2 (COVID-19)/Flu/RSV ([facility] ) 12/11/23 Most recent to oldest [Reference Range]: 1 SARS-CoV-2(Covid19)PCR([facility] COVFLURSV) [Negative] Negative (12/11/23 1:35 PM) Flu A ([facility] COVFLURSV) [Negative] Nega tive (12/11/23 1:35 PM) RSV ([facility] COVFLURSV) [Negative] Positi ve *ABN* (12/11/23 1:35 PM) Flu B ([facility] COVFLURSV) [Negative] Nega tive (12/11/23 1:35 PM) Vital Signs Most recent to oldest [Reference Range]: 1 2 3 Temperature Temporal Artery [36-38 Deg C] 36.8 Deg C (12/11/23 1:29 PM) Peripheral Pulse Rate [60-100 bpm] 104 bpm *HI* (12/11/23 3:00 PM) 103 bpm *HI* (12/11/23 2:45 PM) 104 bpm *HI* (12/11/23 2:30 PM) Heart Rate Monitored [60-100 bpm] 104 bpm *HI* (12/11/23 3:00 PM) Respiratory Rate [12-24 br/min] 18 br/min (12/11/23 3:00 PM) Blood Pressure [90-140/60-90 mmHg] 145/95mmHg *HI* (12/11/23 1:29 PM) Mean Arterial Pressure, Cuff [65-140 mmHg] 112 mmHg (12/11/23 1:29 PM) Weight Estimated 81.65 kg (12/11/23 1:29 PM) Body Mass Index Estimated 37.79 kg/m2 (12/11/23 1:29 PM) Height/Length Estimated 147 cm (12/11/23 1:29 PM) Social History Social History Type Response Tobacco Former tobacco user Tobacco Use:. 1 Sex Female 1Quit 06/27/2018 Hospital Discharge Instructions Patient Education 12/11/2023 14:42:56 Chronic Obstructive Pulmonary Disease Exacerbation Chronic Obstructive Pulmonary Disease Exacerbation Chronic obstructive pulmonary disease (COPD) is a long-term (chronic) condition that affects the lungs. COPD is a general term that can be used to describe many different lung problems that cause lung inflammation and limit airflow, including chronic bronchitis and emphysema. COPD exacerbations areepisodes when breathing symptoms flare up, become much worse, and require extra treatment. COPD exacerbations are usually caused by infections. Without treatment, COPD exacerbations can be severe and even life threatening. Frequent COPD exacerbations can cause further damage to the lungs. What are the causes? This condition may be caused by: ??? Respiratory infections, including viral and bacterial infections. ??? Exposure to smoke. ??? Exposure to air pollution, chemical fumes, or dust. ??? Things that can cause an allergic reaction (allergens). ??? Not taking your usual COPD medicines as directed. ??? Underlying medical problems, such as congestive heart failure or infections not involving the lungs. In many cases, the cause of this condition is not known. What increases the risk? The following factors may make you more likely to develop this condition: ??? Smoking cigarettes. ??? Being an older adult. ??? Having frequent prior COPD exacerbations. What are the signs or symptoms? Symptoms of this condition include: ??? Increased coughing. ??? Increased production of mucus from your lungs. ??? Increased wheezing and shortness of breath. ??? Rapid or labored breathing. ??? Chest tightness. ??? Less energy than usual. ??? Sleep disruption from symptoms. ??? Confusion ??? Increased sleepiness. Often, these symptoms happen or get worse even with the use of medicines. How is this diagnosed? This condition is diagnosed based on: ??? Your medical history. ??? A physical exam. You may also have tests, including: ??? A chest X-ray. ??? Blood tests. ??? Lung (pulmonary) function tests. How is this treated? Treatment for this condition depends on the severity and cause of the symptoms. You may need to be admitted to a hospital for treatment. Some of the treatments commonly used to treat COPD exacerbations are: ??? Antibiotic medicines. These may be used for severe exacerbations caused by a lung infection, such as pneumonia. ??? Bronchodilators. These are inhaled medicines that expand the air passages and allow increased airflow. They may make your breathing more comfortable. ??? Steroid medicines. These act to reduce inflammation in the airways. They may be given with an inhaler, taken by mouth, or given through an IV tube inserted into one of your veins. ??? Supplemental oxygen therapy. ??? Airway clearing techniques, such as noninvasive ventilation (NIV) and positive expiratory pressure (PEP). These provide respiratory support through a mask or other noninvasive device. An example of this would be using a continuous positive airway pressure (CPAP) machine to improve delivery of oxygen into your lungs. Follow these instructions at home: Medicines ??? Take fjci-tis-msorcnj and prescription medicines only as told by your health care provider. ??? It is important to use correct technique with inhaled medicines. ??? If you were prescribed an antibiotic medicine or oral steroid, take it as told by your health care provider. Do not stop taking the medicine even if you start to feel better. Lifestyle ??? Do not use any products that contain nicotine or tobacco. These products include cigarettes, chewing tobacco, and vaping devices, such as e-cigarettes. If you need help quitting, ask your health care provider. ??? Eat a healthy diet. ??? Exercise regularly. ??? Get enough sleep. Most adults need 7 or more hours per night. ??? Avoid exposure to all substances that irritate the airway, especially tobacco smoke. ??? Regularly wash your hands with soap and water for at least 20 seconds. If soap and water are not available, use hand wildlife science professor. This may help prevent you from getting infections. ??? During flu season, avoid enclosed spaces that are crowded with people. General instructions ??? Drink enough fluid to keep your urine pale yellow, unless you have a medical condition that requires fluid restriction. ??? Use a cool mist vaporizer. This humidifies the air and makes it easier for you to clear your chest when you cough. ??? If you have a home nebulizer and oxygen, continue to use them as told by your health care provider. ??? Keep all follow-up visits. This is important. How is this prevented? Stay up-to-date on pneumococcal and flu (influenza) vaccines. A flu shot is recommended every year to help prevent exacerbations. ??? Quitting smoking is very important in preventing COPD from getting worse and in preventing exacerbations from happening as often. ??? Follow all instructions for pulmonary rehabilitation after a recent exacerbation. This can helpprevent future exacerbations. ??? Work with your health care provider to develop and follow an action plan. This tells you what steps to take when you experience certain symptoms. Contact a health care provider if: ??? You have a worsening of your regular COPD symptoms. Get help right away if: ??? You have worsening shortness of breath, even when resting. ??? You have trouble talking. ??? You have severe chest pain. ??? You cough up blood. ??? You have a fever. ??? You have weakness, vomit repeatedly, or faint. ??? You feel confused. ??? You are not able to sleep because of your symptoms. ??? You have trouble doing daily activities. These symptoms may represent a serious problem that is an emergency. Do not wait to see if the symptoms will go away. Get medical help right away. Call your local emergency services (911 in the [place] Do not drive yourself to the hospital. Summary ??? COPD exacerbations are episodes when breathing symptoms become much worse and require extra treatment above your normal treatment. ??? Exacerbations can be severe and even life threatening. Frequent COPD exacerbations can cause further damage to your lungs. ??? COPD exacerbations are usually triggered by infections such as the flu, colds, and even pneumonia. ??? Treatment for this condition depends on the severity and cause of the symptoms. You may need shanique admitted to a hospital for treatment. ??? Quitting smoking is very important to prevent COPD from getting worse and to prevent exacerbations from happening as often. This information is not intended to replace advice given to you by your health care provider. Make sure you discuss any questions you have with your health care provider. Document Revised: 08/15/2021 Document Reviewed: 08/15/2021 [employer] Patient Education ?? 2022 [employer]. Follow Up Care 12/11/2023 13:29:37 With:Alicia Casotrena MD Address: [address] [place] [address]- When:3 to 5 days Respiratory therapy Hospital Progress note * Cesario Wood: PERFORM Event Display: Respiratory Therapy Progress Note Authored Date: [id number] ??ANGELITO TELLEZ 58 Years Assessment: SpO2 96% on 3L NC this is pts home O2 liter flow, HR 104 RR 18. Pt has diminished breath sounds with wheezing in LLL and rhonchi in RLL, breath sounds improved post tx and better aeration. Pt states she has been using neb tx every 2-4 hrs at home and has had to increase O2 liter flow when up and moving around. Treatments: juan luis bartlett Electronically Signed on 12/11/23 03:05 PM Cesario Wood Emergency department Discharge instructions * Contreras Charlton MD: PERFORM, MODIFY Event Display: ED Discharge Information Authored Date: [id number] ANGELITO TELLEZ :1965 Age:58 years Sex:Female Visit Date:12/11/2023 Primary Care Physician: Alicia Castorena MD Discharge Instructions We would like to thank you for allowing us to assist you with your healthcare needs. The following includes patient education materials and information regarding your injury/illness. Diagnosis from Today's Visit COPD exacerbation RSV bronchiolitis Discharge Vitals Temperature??(Temporal Artery) 98.2 ??F (36.8 ??C) Heart Rate??(Peripheral) 104 Heart Rate??(Monitored) 104 Respiratory Rate?? 18 Blood Pressure?? 145/95?? Height?? 57.87 in (147 cm) Weight??(Estimated) 180.04 lb (81.65 kg) BMI?? 37.79 Allergies ANIMAL DANDER CIGARETTE SMOKE HOUSE DUST WEED POLLEN amoxicillin??(Itching) codeine??(Itching) sulfa drugs??(Itching) What to Do Next You Need to Schedule the Following Appointments Follow Up with??Alicia Castorena MD When:??Within 3 to 5 days Where: [address] [place] [address] [place] [address]- You were treated today on an emergency [...] How Much When Why Instructions Next Dose Changed predniSONE (predniSONE 10 mg oral tablet) See Instruction Oral (given by mouth) Every day 4 tabs daily x3 days, 3 tabs daily x3 days, 2 tabs daily x3 days, 1 tab daily x3 days ?? Pickup at [facility] #[id number] Changed predniSONE (predniSONE 10 mg oral tablet) See Instruction Oral (given by mouth) Every day 4 tabs daily x3 days, 3 tabs daily x3 days, 2 tabs daily x3 days, 1 tab daily x3 days ?? Unchanged albuterol (Albuterol (Eqv-Ventolin HFA) 90 mcg/ [...] PUFFS BY MOUTH TWICE DAILY ?? Unchanged doxycycline (doxycycline hyclate 100 mg oral capsule) 1 Capsules Oral (given by mouth) 2 times a day Duration: 7 Days Unchanged Durable Medical Equipment for Prescription (Nebulizer Machine with tubbing) See instructions Asthma Order for Nebulizer with tubbing [facility] ?? Unchanged Durable Medical Equipment for [...] TABLET BY MOUTH EVERY DAY ?? Unchanged sertraline (sertraline 25 mg oral tablet) 1 tab Oral (given by mouth) Every day Unchanged tezepelumab (Tezspire Pre-filled Pen 210 mg/ 1.91 mL subcutaneous solution) Pharmacy Information [facility] #[id number]: [address] [facility] [address] [place], [place] [phone] Education Materials Chronic Obstructive Pulmonary Disease Exacerbation Chronic obstructive pulmonary disease (COPD) is a long-term (chronic) condition that affects the lungs. COPD is a general term that can be used to describe many different lung problems that cause lung inflammation and limit airflow, including chronic bronchitis and emphysema. COPD exacerbations areepisodes when breathing symptoms flare up, become much worse, and require extra treatment. COPD exacerbations are usually caused by infections. Without treatment, COPD exacerbations can be severe and even life threatening. Frequent COPD exacerbations can cause further damage to the lungs. What are the causes? This condition may be caused by: ? Respiratory infections, including viral and bacterial infections. ? Exposure to smoke. ? Exposure to air pollution, chemical fumes, or dust. ? Things that can cause an allergic reaction (allergens). ? Not taking your usual COPD medicines as directed. ? Underlying medical problems, such as congestive heart failure or infections not involving the lungs. In many cases, the cause of this condition is not known. What increases the risk? The following factors may make you more likely to develop this condition: ? Smoking cigarettes. ? Being an older adult. ? Having frequent prior COPD exacerbations. What are the signs or symptoms? Symptoms of this condition include: ? Increased coughing. ? Increased production of mucus from your lungs. ? Increased wheezing and shortness of breath. ? Rapid or labored breathing. ? Chest tightness. ? Less energy than usual. ? Sleep disruption from symptoms. ? Confusion ? Increased sleepiness. Often, these symptoms happen or get worse even with the use of medicines. How is this diagnosed? This condition is diagnosed based on: ? Your medical history. ? A physical exam. You may also have tests, including: ? A chest X-ray. ? Blood tests. ? Lung (pulmonary) function tests. How is this treated? Treatment for this condition depends on the severity and cause of the symptoms. You may need to be admitted to a hospital for treatment. Some of the treatments commonly used to treat COPD exacerbations are: ? Antibiotic medicines. These may be used for severe exacerbations caused by a lung infection, such as pneumonia. ? Bronchodilators. These are inhaled medicines that expand the air passages and allow increased airflow. They may make your breathing more comfortable. ? Steroid medicines. These act to reduce inflammation in the airways. They may be given with an inhaler, taken by mouth, or given through an IV tube inserted into one of your veins. ? Supplemental oxygen therapy. ? Airway clearing techniques, such as noninvasive ventilation (NIV) and positive expiratory pressure (PEP). These provide respiratory support through a mask or other noninvasive device. An example of this would be using a continuous positive airway pressure (CPAP) machine to improve delivery of oxygen into your lungs. Follow these instructions at home: Medicines ? Take qkoy-fdt-ongfurn and prescription medicines only as told by your health care provider. ? It is important to use correct technique with inhaled medicines. ? If you were prescribed an antibiotic medicine or oral steroid, take it as told by your health care provider. Do not stop taking the medicine even if you start to feel better. Lifestyle ? Do not use any products that contain nicotine or tobacco. These products include cigarettes, chewing tobacco, and vaping devices, such as e-cigarettes. If you need help quitting, ask your health careprovider. ? Eat a healthy diet. ? Exercise regularly. ? Get enough sleep. Most adults need 7 or more hours per night. ? Avoid exposure to all substances that irritate the airway, especially tobacco smoke. ? Regularly wash your hands with soap and water for at least 20 seconds. If soap and water are not available, use hand wildlife science professor. This may help prevent you from getting infections. ? During flu season, avoid enclosed spaces that are crowded with people. General instructions ? Drink enough fluid to keep your urine pale yellow, unless you have a medical condition that requires fluid restriction. ? Use a cool mist vaporizer. This humidifies the air and makes it easier for you to clear your chest when you cough. ? If you have a home nebulizer and oxygen, continue to use them as told by your health care provider. ? Keep all follow-up visits. This is important. How is this prevented? Stay up-to-date on pneumococcal and flu (influenza) vaccines. A flu shot is recommended every year to help prevent exacerbations. ? Quitting smoking is very important in preventing COPD from getting worse and in preventing exacerbations from happening as often. ? Follow all instructions for pulmonary rehabilitation after a recent exacerbation. This can help prevent future exacerbations. ? Work with your health care provider to develop and follow an action plan. This tells you what stepsto take when you experience certain symptoms. Contact a health care provider if: ? You have a worsening of your regular COPD symptoms. Get help right away if: ? You have worsening shortness of breath, even when resting. ? You have trouble talking. ? You have severe chest pain. ? You cough up blood. ? You have a fever. ? You have weakness, vomit repeatedly, or faint. ? You feel confused. ? You are not able to sleep because of your symptoms. ? You have trouble doing daily activities. These symptoms may represent a serious problem that is an emergency. Do not wait to see if the symptoms will go away. Get medical help right away. Call your local emergency services (911 in the [place] Do not drive yourself to the hospital. Summary ? COPD exacerbations are episodes when breathing symptoms become much worse and require extra treatment above your normal treatment. ? Exacerbations can be severe and even life threatening. Frequent COPD exacerbations can cause further damage to your lungs. ? COPD exacerbations are usually triggered by infections such as the flu, colds, and even pneumonia. ? Treatment for this condition depends on the severity and cause of the symptoms. You may need to be admitted to a hospital for treatment. ? Quitting smoking is very important to prevent COPD from getting worse and to prevent exacerbations from happening as often. This information is not intended to replace advice given to you by your health care provider. Make sure you discuss any questions you have with your health care provider. Document Revised: 08/15/2021 Document Reviewed: 08/15/2021 [employer] Patient Education ?? 2022 [employer] Tests Performed Medications and Immunizations Administered Given ibuprofen, 600 mg, Oral predniSONE, 50 mg, Oral Tylenol, 1000 mg, Oral Lab Test Name Test Result Date/Time SARS-CoV-2(Covid19)PCR([facility] COVFLURSV) NEGATIVE 12/11/2023 13:35 EST Flu A ([facility] COVFLURSV) NEGATIVE 12/11/2023 13:35 EST Flu B ([facility] COVFLURSV) Neg-[facility] 12/11/2023 13:35 EST RSV ([facility] COVFLURSV) Pos-[facility] 12/11/2023 13:35 EST Patient/Public Health Internship Signature Patient Name:GEOFF ANGELITO M I have received this information and my questions have been answered. Patient/Public Health Internship Name: Patient/Public Health Internship Signature: Relationship to Patient: Witness Name/Signature: Date: Electronically Signed on: 12/11/2023 15:43 ESTSigned by:JANELLE Patient Care team information Care Team Personnel Name: Alicia Castorena MD Position: Physician Member Role: Informed Provider Address: Address: [address] [place] [place] [address] Name: Denise Contreras Position: Ambulatory - RN/NEUROCRITICAL CARE PHYSICIAN ([facility]) Member Role: Shower Room Attendant Name: Dylan Cummings MD Position: No Access Member Role: Assistant In Nursing Address: Address: [address] [place] [address] Care Team Related Persons Name: ZOFIA TELLEZ Name: JUAN PATRICK Address: Home [address] [place] [phone] Name: JUAN PATRICK Address: Home [address] [place] [address] [phone]
--- OUTSIDE RECORDS SUMMARY | 2024-10-26 16:30 | XMS_ITS | Continuity of Care Document ---
Author Organization [facility] Address [address] [place] [address] Care Team Providers Care Training And Development Coordinator Name Role Phone Alicia Castorena Primary Care Physician Denise Contreras Unavailable Unavailable Encounter [facility] Date(s): 09/15/24 - 09/15/[address] [address] Encounter Diagnosis Chronic obstructive lung disease(Discharge Diagnosis) - 09/15/24 Discharge Disposition: Home or Self Care Attending Physician: Alicia Castorena MD Admitting Physician: Alicia Castorena MD Referring Physician: Alicia Castorena MD Allergies, Adverse Reactions, Alerts Substance Criticality Severity Reaction Reaction Severity Status HOUSE DUST Unable to assess criticality Unknown Active WEED POLLEN Unable to assess criticality Unknown Active ANIMAL DANDER Unable to assess criticality Unknown Active CIGARETTE SMOKE Unable to assess criticality Unknown Active codeine Unable to assess criticality Unknown Itching Active amoxicillin Unable to assess criticality Unknown Itching Active sulfa drugs Unable to assess criticality Unknown Itching Active Assessment and Plan Future Scheduled Tests Laboratory* Urinalysis with Microscopic 06/17/24 * Urine Culture 06/17/24 Immunizations Given and Recorded Vaccine Date Status [...] Comment: patient staetdt the vaccine was through [facility] 2Result Comment: tolerated well 3Result Comment: Tolerated well 4Result Comment: Tolerated well Medications acetaminophen 3,000 mg =, taking 3000 mg per day, 0 Refill(s) Start Date: 09/15/24 Status: Ordered Albuterol (Eqv-Ventolin HFA) 90 mcg/inh inhalation aerosol 2 puffs, Inhale, every 4 hr, PRN NEEDED, # 18 g, 3 Refill(s), Pharmacy: [facility] #[id number], 146, cm, 08/09/23 12:12:00 EDT, Height/Length Dosing, 83.91, kg, 03/18/24 11:33:00 EDT, Weight Dosing Start Date: 03/20/24 Status: Ordered azithromycin 250 mg oral tablet See Instructions, Oral, Daily, Take 2 tabs on day 1 and 1 tab on day 2-5, # 6 tab, 0 Refill(s), Pharmacy: [facility] #[id number], 146, cm, 08/09/23 12:12:00 EDT, Height/Length Dosing, 86.16, kg,09/15/24 15:25:00 EST, Weight Dosing Start Date: 09/15/24 Status: Ordered Breztri Aerosphere 160 mcg-9 mcg-4.8 mcg/inh inhalation aerosol INHALE 2 PUFFS BY MOUTH TWICE DAILY Start Date: 07/09/23 Status: Ordered ibuprofen 200 mg oral tablet 2 tab, Oral, As Directed, as needed, 0 Refill(s) Start Date: 03/13/22 Status: Ordered ipratropium-albuterol 0.5 mg-2.5 mg/3 mL inhalation solution See Instructions, USE 1 AMPULE IN NEBULIZER BY MOUTH EVERY 4 HOURS NEEDED, # 180 mL, 11 Refill(s), Pharmacy: [facility] #[id number], 146, cm, 08/09/23 12:12:00 EDT, Height/Length Dosing, 83.91, kg, 03/18/24 11:33:00 EDT, Weight Dosing Start Date: 03/20/24 Status: Ordered loratadine 10 mg oral tablet 1 tab, Oral, Daily, 0 Refill(s) Start Date: 03/13/22 Status: Ordered LORazepam 0.5 mg oral tablet See Instructions, 1 tablet twice daily as needed, # 60 tab, 0 Refill(s), Pharmacy: [facility] #[id number], 146, cm, 08/09/23 12:12:00 EDT, Height/Length Dosing, 86.4, kg, 06/17/24 11:39:00 EDT, Weight Dosing Start Date: 09/10/24 Status: Ordered methocarbamol 500 mg oral tablet 500 mg = 1 tab, Oral, QID, # 120 tab, 3 Refill(s), Pharmacy: [facility] #[id number], 146, cm, 08/09/23 12:12:00 EDT, Height/Length Dosing, 83.91, kg, 03/18/24 11:33:00 EDT, Weight Dosing Start Date: 03/18/24 Stop Date: 07/16/24 Status: Ordered miconazole 2% topical cream 1 aneta, Topical, BID, # 250 g, 1 Refill(s), Pharmacy: [facility] #[id number], 146, cm, 08/09/2312:12:00 EDT, Height/Length Dosing, 81.65, kg, 12/17/23 10:38:00 EST, Weight Dosing Start Date: 12/17/23 Status: Ordered montelukast 10 mg oral tablet See Instructions, TAKE 1 TABLET BY MOUTH EVERY DAY, # 90 tab, 3 Refill(s), Pharmacy: [id number] Start Date: 06/12/22 Status: Ordered Nebulizer Machine with tubbing Nebulizer Machine with tubbing, Order for Nebulizer with tubbing [facility], Supply, See instructions, # 1 EA, 0 Refill(s) Start Date: 04/17/22 Status: Ordered Nystop 100,000 units/g topical powder 1 aneta, Topical, TID, # 60 g, 1 Refill(s), Pharmacy: [email or web address] #[id number], 146, cm, 08/09/23 12:12:00 EDT, Height/Length Dosing, 83.91, kg, 03/18/24 11:33:00 EDT, Weight Dosing Start Date: 03/30/24 Status: Ordered oxygen concentrator oxygen concentrator, home [...] days, # 30 tab, 0 Refill(s), Pharmacy: [facility] #[id number], 146, cm, 08/09/23 12:12:00 EDT, Height/Length Dosing, 86.16, kg, 09/15/24 15:25:00 EST, Weight Dosing Start Date: 09/15/24 Status: Ordered sertraline 25 mg oral tablet 1 tab, Oral, Daily, # 90 tab, 0 Refill(s), Pharmacy: [id number], 146, cm, 08/09/23 12:12:00 EDT, Height/Length Dosing, 86.4, kg, 06/17/24 11:39:00 EDT, Weight Dosing Start Date: 08/13/24 Status: Ordered Tezspire Pre-filled Pen 210 mg/1.91 mL subcutaneous solution 0 Refill(s) Start Date: 10/08/23 Status: Ordered Problem List Condition Confirmation Course Effective Dates Status Health St [facility] Informant Acute exacerbation of chronic obstructive pulmonary disease (COPD) Confirmed Active Allergic rhinitis Confirmed Active Anxiety Confirmed Active Asthma Confirmed Active Chronic obstructive lung disease Confirmed 07/06/19 Active Cough Confirmed Active Fungal skin infection Confirmed Active Low back pain Confirmed Active Breast cancer 1 Confirmed Active 1right breast. Lumpectomy /radioation Procedures [...] for HPV Results Laboratory List Name Date CBC w/ Diff 09/15/24 Comprehensive Metabolic Panel (CMP) 08/22 04/13 Automated Diff 09/15/24 Most recent to oldest [Reference Range]: 1 WBC [5.0-10.0 x10^3/mcL] 7.2 x10^3/mcL (09/15/24 4:27 PM) RBC [4.1-5.3 x10^6/mcL] 3.5 x10^6/mcL *LOW* (09/15/24 4:27 PM) Neutro Auto [40.0-75.0 %] 62.8 % (09/15/24 4:27 PM) Lymph Auto [20.0-50.0 %] 26.7 % (09/15/24 4:27 PM) [place] Auto [2.0-15.0 %] 8.2 % (09/15/24 4:27 PM) Basophil Auto [0.0-1.0 %] 0.6 % (09/15/24 4:27 PM) BUN [7-18 mg/dL] 13 mg/dL (09/15/24 4:27 PM) Glucose Level [74-106 mg/dL] 78 mg/dL (09/15/24 4:27 PM) Potassium Level [3.5-5.1 mmol/L] 3.6 mmo l/L (09/15/24 4:27 PM) MCV [80.0-96.0 fL] 97.2 fL *HI* (09/15/24 4:27 PM) AST [15-37 unit/L] 17 unit/L (09/15/24 PM) ALT [14-59 unit/L] 28 unit/L (09/15/24 PM) MCHC [31.0-35.0 g/dL] 32.4 g/dL (09/15/24 PM) Sodium Level [136-145 mmol/L] 138 mmol/L (09/15/24 PM) Hct [37.0-47.0 %] 34.3 % *LOW* (09/15/24 PM) Calcium Level [8.5-10.1 mg/dL] 9.2 mg/dL (09/15/24 PM) Albumin Level [3.4-5.0 g/dL] 3.7 g/dL (09/15/24 PM) Protein Total [6.4-8.2 g/dL] 7.6 g/dL (09/15/24 PM) MCH [26.0-32.0 pg] 31.4 pg (09/15/24 PM) Neutro Absolute 4.5 x10^3/mcL *NA* (09/15/24 PM) Bilirubin Total [0.2-1.0 mg/dL] 0.3 mg/d L (09/15/24 PM) Hgb [12.0-16.0 g/dL] 11.1 g/dL *LOW* (09/15/24 PM) Alk Phos [46-146 unit/L] 110 unit/L (09/15/24 PM) Platelets [130-450 x10^3/mcL] 328 x10^3/ mcL (09/15/24 PM) CO2 [21-32 mmol/L] 26 mmol/L (09/15/24 PM) eGFR Non-AA [>=60] 101 (09/15/24: PM) eGFR AA [>=60] 101 (09/15/24: PM) Chloride Level [98-107 mmol/L] 103 mmol/ L (09/15/24 PM) RDW-CV [11.5-14.5 %] 12.7 % (09/15/24 4:27 PM) Imm Gran Auto [0.0-0.9 %] 0.7 % (09/15/24 4:27 PM) Slide Review Not Indicated (09/15/24 4:27 PM) Creatinine Level [0.55-1.02 mg/dL] 0.63 mg/dL (09/15/24 4:27 PM) Eos, Auto [1.0-6.0 %] 1.0 % (09/15/24 4:27 PM) Social History Social History Type Response Tobacco Former tobacco user Tobacco Use:. 1 Sex Female Sex Representation Female (finding) 1Quit 06/27/2018 Patient Care team information Care Team Personnel Name: Alicia Castorena MD Position: Physician Member Role: Informed Provider Address: [address] [place] [address] Name: Denise Contreras Position: Ambulatory - RN/SURGERY SCHEDULING COORDINATOR ([facility]) Member Role: Insurance Verification Rep Name: Dylan Cummings MD Position: No Access Member Role: Flying Squad Worker Address: [address] [place] [address] Care Team Related Persons Name: ZOFIA TELLEZ Name: JUAN PATRICK Insurance Providers Guarantor name: ANGELITO TELLEZ Health Plan Information #: 1 Payer: [employer] Member Number: [id number] Policy Number: SASHA Health Plan Information #: 3 Payer: [facility] MEDICAID Member Number: [id number] Policy Number: SASHA Health Plan Information #: 2 Payer: [employer] Member Number: [id number] Policy Number: SASHA
--- OUTSIDE RECORDS SUMMARY | 2024-10-26 16:30 | XMS_ITS | Continuity of Care Document ---
Author Organization [facility] Address [address] [place] [address] Care Team Providers Care Ion Implant Machine Operator Name Role Phone Alicia Castorena Primary Care Physician Denise Contreras Unavailable Unavailable Encounter [facility] Date(s): 06/17/24 - 06/17/24 [facility] [address] [place] [address] Discharge Disposition: Home or Self Care Attending Physician: Alicia Castorena MD Admitting Physician: Alicia Castorena MD Allergies, Adverse Reactions, [...] NEEDED, # 18 g, 3 Refill(s), Pharmacy: [facility] #[id number], 146, cm, 08/09/23 12:12:00 EDT, Height/Length Dosing, 83.91, kg, 03/18/24 11:33:00 EDT, Weight Dosing Start Date: 03/20/24 Status: Ordered Breztri Aerosphere 160 mcg-9 mcg-4.8 mcg/inh inhalation aerosol INHALE 2 PUFFS BY MOUTH TWICE DAILY Start Date: 07/09/23 Status: Ordered doxycycline hyclate 100 mg oral capsule 100 mg = 1 cap, Oral, BID, # 20 cap, 0 Refill(s), Pharmacy: [facility] #[id number], 146, cm, 08/09/23 12:12:00 EDT, Height/Length Dosing, 86.4, kg, 06/17/24 11:39:00 EDT, Weight Dosing Start Date: 06/17/24 Stop Date: 06/27/24 Status: Ordered ibuprofen 200 mg oral tablet 2 tab, Oral, As Directed, as needed, 0 Refill(s) Start Date: 03/13/22 Status: Ordered ipratropium-albuterol 0.5 mg-2.5 mg/3 mL inhalation solution See Instructions, USE 1 AMPULE IN NEBULIZER BY MOUTH EVERY 4 HOURS NEEDED, # 180 mL, 11 Refill(s), Pharmacy: [facility] #[id number], 146, cm, 08/09/23 12:12:00 EDT, Height/Length Dosing, 83.91, kg, 03/18/24 11:33:00 EDT, Weight Dosing Start Date: 03/20/24 Status: Ordered loratadine 10 mg oral tablet 1 tab, Oral, Daily, 0 Refill(s) Start Date: 03/13/22 Status: Ordered LORazepam 0.5 mg oral tablet See Instructions, 1 tablet twice daily as needed, # 60 tab, 0 Refill(s), Pharmacy: [facility] #[id number], 146, cm, 08/09/23 12:12:00 EDT, Height/Length Dosing, 83.91, kg, 03/18/24 11:33:00 EDT,Weight Dosing Start Date: 04/30/24 Status: Ordered methocarbamol 500 mg oral tablet 500 mg = 1 tab, Oral, QID, # 120 tab, 3 Refill(s), Pharmacy: [facility] #[id number], 146, cm, 08/09/23 12:12:00 EDT, Height/Length Dosing, 83.91, kg, 03/18/24 11:33:00 EDT, Weight Dosing Start Date: 03/18/24 Stop Date: 07/16/24 Status: Ordered miconazole 2% topical cream 1 aneta, Topical, BID, # 250 g, 1 Refill(s), Pharmacy: [facility] #[id number], 146, cm, 08/09/2312:12:00 EDT, Height/Length Dosing, 81.65, kg, 12/17/23 10:38:00 EST, Weight Dosing Start Date: 12/17/23 Status: Ordered montelukast 10 mg oral tablet See Instructions, TAKE 1 TABLET BY MOUTH EVERY DAY, # 90 tab, 3 Refill(s), Pharmacy: [id number] Start Date: 06/12/22 Status: Ordered Nebulizer Machine with tubbing Nebulizer Machine with tubbing, Order for Nebulizer with tubbing [facility], Supply, See instructions, # 1 EA, 0 Refill(s) Start Date: 04/17/22 Status: Ordered Nystop 100,000 units/g topical powder 1 aneta, Topical, TID, # 60 g, 1 Refill(s), Pharmacy: [facility] #[id number], 146, cm, 08/09/23 12:12:00 EDT, Height/Length Dosing, [...] days, # 30 tab, 0 Refill(s), Pharmacy: [facility] #[id number], 146, cm, 08/09/23 12:12:00 EDT, Height/Length Dosing, 86.4, kg, 06/17/24 11:39:00 EDT, Weight Dosing Start Date: 06/17/24 Status: Ordered sertraline 25 mg oral tablet 1 tab, Oral, Daily, # 90 tab, 0 Refill(s), Pharmacy: [id number], 146, cm, 08/09/23 12:12:00 EDT, Height/Length Dosing, 83.91, kg, 03/18/24 11:33:00 EDT, Weight Dosing Start Date: 05/20/24 Status: Ordered Tezspire Pre-filled Pen 210 mg/1.91 [...] for HPV Results Laboratory List Name Date .Urinalysis POCT 06/17/24 Most recent to oldest [Reference Range]: 1 Method of Collect POC Clean Catch *NA* (06/17/24 11:52 AM) Specific [place], Ur POC <1.005 *NA* (06/17/24 11:52 AM) Specimen Color POC Yellow *NA* (06/17/24 11:52 AM) Glucose, Urine POC [Negative] Negative (06/17/24 11:52 AM) Bilirubin, Urine POC [Negative] Negative (06/17/24 11:52 AM) Ketones, Urine POC [Negative] Negative (06/17/24 11:52 AM) Blood, Urine POC [Negative] Negative (06/17/24 11:52 AM) pH, Urine POC 6 *NA* (06/17/24 11:52 AM) Protein, Urine POC [Negative] Negative (06/17/24 11:52 AM) Urobilinogen, Urine POC Normal (06/17/24 11:52 AM) Nitrite, Urine POC [Negative] Negative (06/17/24 11:52 AM) Leuk Esterase, Urine POC [Negative] Nega tive (06/17/24 11:52 AM) Clarity, Urine POC [Clear] Clear (06/17/24 11:52 AM) Social History Social History Type Response Tobacco Former tobacco user Tobacco Use:. 1 Sex Female Sex Representation Female (finding) 1Quit 06/27/2018 Patient Care team information Care Team Personnel Name: Alicia Castorena MD Position: Physician Member Role: Informed Provider Address: [address] [place] [id number] Name: Denise Contreras Position: Ambulatory - RN/COUNTY SURVEYOR (Gold) Member Role: E Commerce Web Developer Name: Dylan Cummings MD Position: No Access Member Role: Transfer And Line Up Worker Address: [address] [place] [id number] [place] [address] Care Team Related Persons Name: ZOFIA TELLEZ Name: JUAN PATRICK Insurance Providers Guarantor name: ANGELITO TELLEZ Health Plan Information #: 1 Payer: [facility] [employer] Member Number: [id number] Policy Number: NA Health Plan Information #: 2 Payer: [facility] MEDICAID Member Number: [id number] Policy Number: NA
--- OUTSIDE RECORDS SUMMARY | 2024-10-26 16:30 | XMS_ITS | Continuity of Care Document ---
Author Organization [facility] Address [address] [place] [address] Care Team Providers Care Psychiatric Technician Assistant Name Role Phone Alicia Castorena Primary Care Physician Denise Contreras Unavailable Unavailable Encounter [facility] Date(s): 10/07/24 - 10/08/[address] [id number] Encounter Diagnosis Hyponatremia(Discharge Diagnosis) - 10/07/24 Hypokalemia(Discharge Diagnosis) - 10/07/24 Gastroenteritis(Discharge Diagnosis) - 10/07/24 Discharge Disposition: Home or Self Care Attending Physician: Jossue Huynh MD Admitting Physician: Jossue Huynh MD Referring Physician: Jossue Huynh MD Encounter Type: Emergency Allergies, Adverse Reactions, Alerts Substance Criticality Severity [...] criticality Unknown Itching Active Assessment and Plan Extracted from: Title:Clinical Document Author:Grace Shetty te:10/07/24 Diagnosis: 1. Hyponatremia Comment: Diagnosis: 2. Hypokalemia Comment: Diagnosis: 3. Gastroenteritis Comment: Diagnosis: Nausea Comment: Diagnosis: Vomiting Comment: Extracted from: Title:ED Provider Note Author:Jossue Huynh MD Date:10/07/24 Assessment/Plan 1.??Hyponatremia??E87.1 Ordered: ondansetron 4 mg oral tablet, disintegrating, 4 mg = 1 tab, Oral, TID, PRN nausea/vomiting, X 4 days, # 12 tab, 0 Refill(s), 10/11/24 23:58:00 EST, Pharmacy: [facility] #[id number], 146, cm, 08/09/23 12:12:00 EDT, Height/Length Dosing, 85.85, kg, 10/06/24 9:53:00 EST, Weight Dosing Discharge Patient, 10/07/24 23:57:00 EST, Home Independently, Constant Indicator ?? 2.??Hypokalemia??E87.6 Ordered: ondansetron 4 mg oral tablet, disintegrating, 4 mg = 1 tab, Oral, TID, PRN nausea/vomiting, X 4 days, # 12 tab, 0 Refill(s), 10/11/24 23:58:00 EST, Pharmacy: [facility] #[id number], 146, cm, 08/09/23 12:12:00 EDT, Height/Length Dosing, 85.85, kg, 10/06/24 9:53:00 EST, Weight Dosing Discharge Patient, 10/07/24 23:57:00 EST, Home Independently, Constant Indicator ?? 3.??Gastroenteritis??K52.9 Ordered: ondansetron 4 mg oral tablet, disintegrating, 4 mg = 1 tab, Oral, TID, PRN nausea/vomiting, X 4 days, # 12 tab, 0 Refill(s), 10/11/24 23:58:00 EST, Pharmacy: [facility] #[id number], 146, cm, 08/09/23 12:12:00 EDT, Height/Length Dosing, 85.85, kg, 10/06/24 9:53:00 EST, Weight Dosing Discharge Patient, 10/07/24 23:57:00 EST, Home Independently, Constant Indicator ?? Orders: THP ondansetron 4 mg Dis Tab, 4 tab, Oral, Misc, Once, First Dose: 10/07/24 23:54:00 EST, Stop Date: 10/07/24 23:54:00 EST, Physician Stop, STAT NS with potassium chloride 20 mEq/L 1,000 mL, Total Volume (mL): 1,000, 1,000 mL, Soln-IV, IV, 1,000 mL/hr, Start Date: 10/07/24 21:47:00 EST, 85.85 kg, Populate Charting Weight From Order Urinalysis with Micro if Indicated and Culture if Indicated, Urine, Stat Collect, 10/07/24 21:07:00 EST, Once, Nurse collect, Print Label Patient Education Hyponatremia, [id number] Hypokalemia Viral Gastroenteritis, Adult, Efyh-lb-Ciql Follow Up With When Contact Information Follow up with primary care provider Only if needed Additional Instructions: Future Scheduled Tests Laboratory* Urinalysis with Microscopic [...] Comment: patient staetdt the vaccine was through [facility] 2Result Comment: tolerated well 3Result Comment: Tolerated well 4Result Comment: Tolerated well Problem List Condition Confirmation Course Effective Dates [...] Laboratory List Name Date CBC w/ Diff 10/07/24 Comprehensive Metabolic Panel 10/07/24 Lipase Level 10/07/24 NT- Pro BNP 10/07/24 Troponin-I 10/07/24 Automated Diff 10/07/24 Most recent to oldest [Reference Range]: 1 WBC [5.0-10.0 x10^3/mcL] 10.1 x10^3/mcL *HI* (10/07/24 9:10 PM) RBC [4.1-5.3 x10^6/mcL] 3.6 x10^6/mcL *LOW* (10/07/24 9:10 PM) Neutro Auto [40.0-75.0 %] 71.7 % (10/07/24 9:10 PM) Lymph Auto [20.0-50.0 %] 18.1 % *LOW* (10/07/24 9:10 PM) [place] Auto [2.0-15.0 %] 9.0 % (10/07/24 9:10 PM) Basophil Auto [0.0-1.0 %] 0.3 % (10/07/24 9:10 PM) BUN [7-18 mg/dL] 18 mg/dL (10/07/24 9:10 PM) Glucose Level [74-106 mg/dL] 119 mg/dL *HI* (10/07/24 9:10 PM) Potassium Level [3.5-5.1 mmol/L] 3.3 mmo l/L *LOW* (10/07/24 9:10 PM) MCV [80.0-96.0 fL] 93.8 fL (10/07/24 9:10 PM) AST [15-37 unit/L] 39 unit/L *HI* (10/07/24 9:10 PM) ALT [14-59 unit/L] 75 unit/L *HI* (10/07/24 9:10 PM) MCHC [31.0-35.0 g/dL] 33.2 g/dL (10/07/24 9:10 PM) Troponin-I [0.0-51.4 pg/mL] <5.0 pg/mL (10/07/24 9:10 PM) Sodium Level [136-145 mmol/L] 127 mmol/L *LOW* (10/07/24 9:10 PM) Hct [37.0-47.0 %] 33.4 % *LOW* (10/07/24 9:10 PM) Lipase Level [16-77 unit/L] 32 unit/L 1 (10/07/24 9:10 PM) Calcium Level [8.5-10.1 mg/dL] 9.0 mg/dL (10/07/24 9:10 PM) Albumin Level [3.4-5.0 g/dL] 3.9 g/dL (10/07/24 9:10 PM) Protein Total [6.4-8.2 g/dL] 7.7 g/dL (10/07/24 9:10 PM) MCH [26.0-32.0 pg] 31.2 pg (10/07/24 9:10 PM) Neutro Absolute 7.2 x10^3/mcL *NA* (10/07/24 9:10 PM) Bilirubin Total [0.2-1.0 mg/dL] 0.3 mg/d L (10/07/24 9:10 PM) Hgb [12.0-16.0 g/dL] 11.1 g/dL *LOW* (10/07/24 9:10 PM) Alk Phos [46-146 unit/L] 125 unit/L (10/07/24 9:10 PM) Platelets [130-450 x10^3/mcL] 295 x10^3/ mcL (10/07/24 9:10 PM) CO2 [21-32 mmol/L] 26 mmol/L (10/07/24 9:10 PM) eGFR Non-AA [>=60] 91 (10/07/24 9:10 PM) eGFR AA [>=60] 91 (10/07/24 9:10 PM) NT-proBNP [0-125 pg/mL] 39 pg/mL (10/07/24 9:10 PM) Chloride Level [98-107 mmol/L] 91 mmol/L *LOW* (10/07/24 9:10 PM) RDW-CV [11.5-14.5 %] 12.4 % (10/07/24 9:10 PM) Imm Gran Auto [0.0-0.9 %] 0.3 % (10/07/24 9:10 PM) Creatinine Level [0.55-1.02 mg/dL] 0.75 mg/dL (10/07/24 9:10 PM) Eos, Auto [1.0-6.0 %] 0.6 % *LOW* (10/07/24 9:10 PM) 1Interpretive Data: Effective 08/09/22, [facility] has switched to a revised Lipase test.Note new ReferenceRange. Vital Signs Most recent to oldest [Reference Range]: 1 2 3 Temperature Temporal Artery [36-38 Deg C] 36 Deg C (10/07/24 10:09 PM) Temperature Temporal Artery (DegF) [97.3-100 Deg F] 96.8 Deg F *LOW* (10/07/24 10:09 PM) Peripheral Pulse Rate [60-100 bpm] 103 bpm *HI* (10/07/24 11:34 PM) 92 bpm (10/07/24 11:00 PM) 91 bpm (10/07/24 10:30 PM) Heart Rate Monitored [60-100 bpm] 100 bpm (10/07/24 11:34 PM) 87 bpm (10/07/24 11:30 PM) 88 bpm (10/07/24 11:00 PM) Respiratory Rate [12-24 br/min] 19 br/min (10/07/24 11:34 PM) 12 br/min (10/07/24 11:30 PM) 12 br/min (10/07/24 11:00 PM) Blood Pressure [90-120/60-80 mmHg] 117/67mmHg (10/07/24 11:30 PM) 115/69mmHg (10/07/24 11:00 PM) 125/76mmHg *HI* (10/07/24 10:30 PM) Mean Arterial Pressure, Cuff [65-140 mmHg] 84 mmHg (10/07/24 11:30 PM) 84 mmHg (10/07/24 11:00 PM) 92 mmHg (10/07/24 10:30 PM) Social History Social History Type Response Tobacco Former tobacco user Tobacco Use:. 1 Sex Female Sex Representation Female (finding) 1Quit 06/27/2018 Hospital Discharge Instructions Patient Education 10/07/2024 22:57:44 Hyponatremia, Uiae-rh-Fjmf Hyponatremia Hyponatremia is when the amount of salt (sodium) in your blood is too low. When salt levels are low, your body cells may take in extra water. This can cause swelling. The swelling often affects the brain. What are the causes? Certain medical problems or conditions. ??? Vomiting a lot. ??? Having watery poop (diarrhea) often. ??? Sweating too much. ??? Taking certain medicines or using illegal drugs. ??? Fluids given through an IV tube. What increases the risk? Having heart, kidney, or liver failure. ??? Having a medical condition that causes you to have watery poop a lot. ??? Doing very hard exercises. ??? Taking medicines that affect the amount of salt that is in your blood. What are the signs or symptoms? Symptoms of this condition include: ??? Headache. ??? Feeling like you may vomit (nausea). ??? Vomiting. ??? Being very tired. ??? Muscle weakness and cramps. ??? Not wanting to eat as much as normal. ??? Feeling weak or dizzy. Very bad symptoms of this condition include: ??? Confusion. ??? Feeling restless. ??? Having a fast heart rate. ??? Fainting. ??? Seizures. ??? Coma. How is this treated? Treatment for this condition depends on the cause. Treatment may include: ??? Getting fluids through an IV tube that is put into one of your veins. ??? Taking medicines to fix the salt levels in your blood. If medicines are causing the problem, your medicines will need to be changed. ??? Limiting how much water or fluid you take in, in some cases. ??? Monitoring in the hospital to watch your symptoms. Follow these instructions at home: ??? Take ians-quu-aanjwix and prescription medicines only as told by your doctor. Many medicines can make this condition worse. Talk with your doctor about any medicines that you are taking. ??? Do not drink alcohol. ??? Keep all follow-up visits. Contact a doctor if: ??? You feel more like you may vomit. ??? You feel more tired. ??? Your headache gets worse. ??? You feel more confused. ??? You feel weaker. ??? Your symptoms go away and then they come back. Get help right away if: ??? You have a seizure. ??? You faint. ??? You keep having watery poop. ??? You keep vomiting. Summary ??? Hyponatremia is when the amount of salt in your blood is too low. ??? When salt levels are low, you can have swelling throughout the body. The swelling mostly affects the brain. ??? Treatment depends on the cause. ??? Treatment may include IV fluids and changing medicines. This information is not intended to replace advice given to you by your health care provider. Make sure you discuss any questions you have with your health care provider. Document Revised: 04/17/2022 Document Reviewed: 04/17/2022 [employer] Patient Education ?? 2022 [employer]. 10/07/2024 22:57:40 Hypokalemia Hypokalemia Hypokalemia means that the amount of potassium in the blood is lower than normal. Potassium is a mineral (electrolyte) that helps regulate the amount of fluid in the body. It also stimulates muscle tightening (contraction) and helps nerves work properly. Normally, most of the body's potassium is inside cells, and only a very small amount is in the blood. Because the amount in the blood is so small, minor changes to potassium levels in the blood can be life-threatening. What are the causes? This condition may be caused by: ??? Antibiotic medicine. ??? Diarrhea or vomiting. Taking too much of a medicine that helps you have a bowel movement (laxative) can cause diarrhea and lead to hypokalemia. ??? Chronic kidney disease (CKD). ??? Medicines that help the body get rid of excess fluid (diuretics). ??? Eating disorders, such as anorexia or bulimia. ??? Low magnesium levels in the body. ??? Sweating a lot. What are the signs or symptoms? Symptoms of this condition include: ??? Weakness. ??? Constipation. ??? Fatigue. ??? Muscle cramps. ??? Mental confusion. ??? Skipped heartbeats or irregular heartbeat (palpitations). ??? Tingling or numbness. How is this diagnosed? This condition is diagnosed with a blood test. How is this treated? This condition may be treated by: ??? Taking potassium supplements. ??? Adjusting the medicines that you take. ??? Eating more foods that contain a lot of potassium. If your potassium level is very low, you may need to get potassium through an IV and be monitored in the hospital. Follow these instructions at home: Eating and drinking ??? Eat a healthy diet. A healthy diet includes fresh fruits and vegetables, whole grains, healthy fats, and lean proteins. ??? If told, eat more foods that contain a lot of potassium. These include: ??? Nuts, such as peanuts and pistachios. ??? Seeds, such as sunflower seeds and pumpkin seeds. ??? Peas, lentils, and najera beans. ??? Whole grain and bran cereals and breads. ??? Fresh fruits and vegetables, such as apricots, avocado, bananas, cantaloupe, kiwi, oranges, tomatoes, asparagus, and potatoes. ??? Juices, such as orange, tomato, and prune. ??? Lean meats, including fish. ??? Milk and milk products, such as yogurt. General instructions ??? Take wang-xts-lpvqrqx and prescription medicines only as told by your health care provider. This includes vitamins, natural food products, and supplements. ??? Keep all follow-up visits. This is important. Contact a health care provider if: ??? You have weakness that gets worse. ??? You feel your heart pounding or racing. ??? You vomit. ??? You have diarrhea. ??? You have diabetes and you have trouble keeping your blood sugar in your target range. Get help right away if: ??? You have chest pain. ??? You have shortness of breath. ??? You have vomiting or diarrhea that lasts for more than 2 days. ??? You faint. These symptoms may be an emergency. Get help right away. Call 911. ??? Do not wait to see if the symptoms will go away. ??? Do not drive yourself to the hospital. Summary ??? Hypokalemia means that the amount of potassium in the blood is lower than normal. ??? This condition is diagnosed with a blood test. ??? Hypokalemia may be treated by taking potassium supplements, adjusting the medicines that you take, or eating more foods that are high in potassium. ??? If your potassium level is very low, you may need to get potassium through an IV and be monitored in the hospital. This information is not intended to replace advice given to you by your health care provider. Make sure you discuss any questions you have with your health care provider. Document Revised: 06/21/2022 Document Reviewed: 06/21/2022 [employer] Patient Education ?? 2022 [employer]. 10/07/2024 22:57:35 Viral Gastroenteritis, Adult, Lbpt-bn-Vyrw Viral Gastroenteritis, Adult Viral gastroenteritis is also known as the stomach flu. This condition may affect your stomach, your small intestine, and your large intestine. It can cause sudden watery poop (diarrhea), fever, and vomiting. This condition is caused by certain germs (viruses). These germs can be passed from personto person very easily (are contagious). Having watery poop and vomiting can make you feel weak and cause you to not have enough water in your body (get dehydrated). This can make you tired and thirsty, make you have a dry mouth, and make it so you pee (urinate) less often. It is important to replace the fluids that you lose from having watery poop and vomiting. What are the causes? You can get sick by catching germs from other people. ??? You can also get sick by: ??? Eating food, drinking water, or touching a surface that has the germs on it (is contaminated). ??? Sharing utensils or other personal items with a person who is sick. What increases the risk? Having a weak body defense system (immune system). ??? Living with one or more children who are younger than 2 years. ??? Living in a detention. ??? Going on cruise ships. What are the signs or symptoms? Symptoms of this condition start suddenly. Symptoms may last for a few days or for as long as a week. ??? Common symptoms include: ??? Watery poop. ??? Vomiting. ??? Other symptoms include: ??? Fever. ??? Headache. ??? Feeling tired (fatigue). ??? Pain in the belly (abdomen). ??? Chills. ??? Feeling weak. ??? Feeling like you may vomit (nauseous). ??? Muscle aches. ??? Not feeling hungry. How is this treated? This condition typically goes away on its own. The focus of treatment is to replace the fluids thatyou lose. This condition may be treated with: ??? An ORS (oral rehydration solution). This is a drink that helps you replace fluids and minerals your body lost. It is sold at pharmacies and stores. ??? Medicines to help with your symptoms. ??? Probiotic supplements to reduce symptoms of watery poop. ??? Fluids given through an IV tube, if needed. Older adults and people with other diseases or a weak body defense system are at higher risk for not having enough water in the body. Follow these instructions at home: Eating and drinking ??? Take an ORS as told by your doctor. ??? Drink clear fluids in small amounts as you are able. Clear fluids include: ??? Water. ??? Ice chips. ??? Fruit juice that has water added to it (is diluted). ??? Low-calorie sports drinks. ??? Drink enough fluid to keep your pee (urine) pale yellow. ??? Eat small amounts of healthy foods every 3???4 hours as you are able. This may include whole grains, fruits, vegetables, lean meats, and yogurt. ??? Avoid fluids that have a lot of sugar or caffeine in them. This includes energy drinks, sports drinks, and soda. ??? Avoid spicy or fatty foods. ??? Avoid alcohol. General instructions ??? Wash your hands often. This is very important after you have watery poop or you vomit. If you cannot use soap and water, use hand emt b. ??? Make sure that all people in your home wash their hands well and often. ??? Take zszz-pui-khyjdzs and prescription medicines only as told by your doctor. ??? Rest at home while you get better. ??? Watch your condition for any changes. ??? Take a warm bath to help with any burning or pain from having watery poop. ??? Keep all follow-up visits. Contact a doctor if: ??? You cannot keep fluids down. ??? Your symptoms get worse. ??? You have new symptoms. ??? You feel light-headed or dizzy. ??? You have muscle cramps. Get help right away if: ??? You have chest pain. ??? You have trouble breathing, or you are breathing very fast. ??? You have a fast heartbeat. ??? You feel very weak or you faint. ??? You have a very bad headache, a stiff neck, or both. ??? You have a rash. ??? You have very bad pain, cramping, or bloating in your belly. ??? Your skin feels cold and clammy. ??? You feel mixed up (confused). ??? You have pain when you pee. ??? You have signs of not having enough water in the body, such as: ??? Dark pee, hardly any pee, or no pee. ??? Cracked lips. ??? Dry mouth. ??? Sunken eyes. ??? Feeling very sleepy. ??? Feeling weak. ??? You have signs of bleeding, such as: ??? You see blood in your vomit. ??? Your vomit looks like coffee grounds. ??? You have bloody or black poop or poop that looks like tar. These symptoms may be an emergency. Get help right away. Call 911. ??? Do not wait to see if the symptoms will go away. ??? Do not drive yourself to the hospital. Summary ??? Viral gastroenteritis is also known as the stomach flu. ??? This condition can cause sudden watery poop (diarrhea), fever, and vomiting. ??? These germs can be passed from person to person very easily. ??? Take an ORS (oral rehydration solution) as told by your doctor. This is a drink that is sold [employer] and stores. ??? Wash your hands often, especially after having watery poop or vomiting. If you cannot use soap and water, use hand emt b. This information is not intended to replace advice given to you by your health care provider. Make sure you discuss any questions you have with your health care provider. Document Revised: 08/06/2022 Document Reviewed: 08/06/2022 [employer] Patient Education ?? 2022 [employer]. Follow Up Care 10/07/2024 20:52:46 With:Follow up with primary care provider Address: When: only if needed Physician Emergency department Note * Jossue Huynh MD: PERFORM Event Display: ED Note Physician Authored Date: [id number] GEOFFANGELITO :1965 Age:58 years Sex:Female Visit Date:10/07/2024 Primary Care Physician: Alicia Castorena MD Basic Information Time Seen: Jossue Huynh MD / 10/07/2024 20:56 Chief Complaint started on 40 mg. torsemide this morning at [address] Salas @ 1000 became diaphoretic araseli havingnausea vomiting muscle cramping. chronic O2 4-6L via [place] for COPD History Of Present Illness: 58-year-old female with a history of COPD oxygen dependent??and previous surgical history of appendectomy and cholecystectomy comes to the ER because of??intermittent muscle cramps??and nausea.?? Patient was put on a course of antibiotic??in August for COPD exacerbation,??on 16 September she was put on Z- Jake and prednisone. ??She saw Dr. Salas yesterday and felt that she still has some residual symptoms so??she was started on doxycycline azithromycin prednisone taper and torsemide also.?? Today after taking the torsemide she felt that she had some cramping of the muscles??of the extremities as well as the abdominal soles and at some point felt diaphoretic and threw up.?? No worsening of the shortness of breath.?? No fever or chills. ??She vomited and she also had diarrhea twice today.?? Right now there is no abdominal pain. ??No GI bleeding on history.?? She spoke with Dr. Salas today and he recommended stopping the torsemide and drinking some Gatorade which she feels she has done.??The symptoms seem to have started after she took the torsemide.?? She quit smoking some years ago, she has been on oxygen at home for couple years. Review of Systems: Per HPI Physical Exam Vitals & Measurements T:??36?C ??(Temporal Artery)?? HR:??103??(Peripheral)?? HR:??100??(Monitored)?? RR:??19?? BP:??117/67?? SpO2:??100%?? O2 Flow Rate:??5?? O2 Therapy:??Nasal cannula?? General:??alert,??no acute distress.?? Does not look septic no respiratory distress she is wearing her home??oxygen and satting at 98%.No respiratory distress. Skin:??warm,??dry. Head:??no??trauma,??normocephalic. Neck:??trachea??midline,??no??adenopathy,??no??tenderness. Eye:??normal??conjunctiva, sclera??clear. Cardiovascular:??regular??rate and rhythm,??normal??peripheral perfusion. Respiratory: lungs??CTA, respirations??non-labored.?? X-ray at this time. ??No adventitious lung sounds,??they actually sound clear. ??This seems to be an improvement compared to the examination documentedon yesterday's visit Chest wall:??no??deformity. Gastrointestinal:??soft,??non distended,??no??tenderness,??no??guarding.?? Obese abdomen is nontender, no pain or guarding. Extremities:??no??deformity,??no??trauma.?? Well-perfused Neurological:?LOC??appropriate for age,?speech??normal. Psychiatric:??cooperative,? Medical Decision Making: Medical Decision-Making: Clinical lab tests: ordered and reviewed -??Yes ?? Tests in the medicine section of CPT??: ordered and reviewed -??Yes ?? Review and summarize past medical records -??Yes ?? Independent visualization of images, tracings, or specimens? Yes ?? Differential diagnosis includes and cramping due to hyponatremia and hypokalemia.?? No??major signsof dehydration clinically.?? At this point with her BNP being low I do not think she needs the torsemide.?? Patient has some nausea??vomiting and diarrhea today she may have also some gastroenteritis symptoms.?? Labs here are otherwise??show??slight??transaminitis which I think is nonspecific. ??She is status post cholecystectomy.?? She had no abdominal pain on exam. ??She felt better after IV fluids??consisting of normal saline with 20 mill colons of potassium.?? Will plan on sending her home with some Zofran ODT. ??She is discharged in improved??condition. ??Her potassium was 3.3 here,in light??of the fact that she was stopped the torsemide I elected to not prescribe her supplement to take home.She will continue the antibiotics and steroids ?? Last 24 Hours?? Chemistry ? Event Name?? Event Result?? Date/Time?? Sodium Level 127 mmol/L??Low 10/07/24 21:10:00 Potassium Level 3.3 mmol/L??Low 10/07/24 21:10:00 Chloride Level 91 mmol/L??Low 10/07/24 21:10:00 CO2 26 mmol/L 10/07/24 21:10:00 Alk Phos 125 unit/L 10/07/24 21:10:00 AST 39 unit/L??High 10/07/24 21:10:00 ALT 75 unit/L??High 10/07/24 21:10:00 BUN 18 mg/dL 10/07/24 21:10:00 Glucose Level 119 mg/dL??High 10/07/24 21:10:00 Creatinine Level 0.75 mg/dL 10/07/24 21:10:00 eGFR AA 91 10/07/24 21:10:00 eGFR Non-AA 91 10/07/24 21:10:00 Calcium Level 9 mg/dL 10/07/24 21:10:00 Protein Total 7.7 g/dL 10/07/24 21:10:00 Albumin Level 3.9 g/dL 10/07/24 21:10:00 Bilirubin Total 0.3 mg/dL 10/07/24 21:10:00 Lipase Level 32 unit/L 10/07/24 21:10:00 Troponin-I <5.0 10/07/24 21:10:00 NT-proBNP 39 pg/mL 10/07/24 21:10:00 ? Hematology ? Event Name?? Event Result?? Date/Time?? WBC 10.1 x10^3/mcL??High 10/07/24 21:10:00 RBC 3.6 x10^6/mcL??Low 10/07/24 21:10:00 Hgb 11.1 g/dL??Low 10/07/24 21:10:00 Hct 33.4 %??Low 10/07/24 21:10:00 MCV 93.8 fL 10/07/24 21:10:00 MCH 31.2 pg 10/07/24 21:10:00 MCHC 33.2 g/dL 10/07/24 21:10:00 RDW-CV 12.4 % 10/07/24 21:10:00 Platelets 295 x10^3/mcL 10/07/24 21:10:00 Neutro Auto 71.7 % 10/07/24 21:10:00 Lymph Auto 18.1 %??Low 10/07/24 21:10:00 [place] Auto 9 % 10/07/24 21:10:00 Eos, Auto 0.6 %??Low 10/07/24 21:10:00 [place] Auto 0.3 % 10/07/24 21:10:00 Imm Gran Auto 0.3 % 10/07/24 21:10:00 Neutro Absolute 7.2 x10^3/mcL 10/07/24 21:10:00 ? Procedure No Qualifying Data Assessment/Plan 1.??Hyponatremia??E87.1 Ordered: ondansetron 4 mg oral tablet, disintegrating, 4 mg = 1 tab, Oral, TID, PRN nausea/vomiting, X 4 days, # 12 tab, 0 Refill(s), 10/11/24 23:58:00 EST, Pharmacy: [facility] #[id number], 146, cm, 08/09/23 12:12:00 EDT, Height/Length Dosing, 85.85, kg, 10/06/24 9:53:00 EST, Weight Dosing Discharge Patient, 10/07/24 23:57:00 EST, Home Independently, Constant Indicator ?? 2.??Hypokalemia??E87.6 Ordered: ondansetron 4 mg oral tablet, disintegrating, 4 mg = 1 tab, Oral, TID, PRN nausea/vomiting, X 4 days, # 12 tab, 0 Refill(s), 10/11/24 23:58:00 EST, Pharmacy: [facility] #[id number], 146, cm, 08/09/23 12:12:00 EDT, Height/Length Dosing, 85.85, kg, 10/06/24 9:53:00 EST, Weight Dosing Discharge Patient, 10/07/24 23:57:00 EST, Home Independently, Constant Indicator ?? 3.??Gastroenteritis??K52.9 Ordered: ondansetron 4 mg oral tablet, disintegrating, 4 mg = 1 tab, Oral, TID, PRN nausea/vomiting, X 4 days, # 12 tab, 0 Refill(s), 10/11/24 23:58:00 EST, Pharmacy: [facility] #[id number], 146, cm, 08/09/23 12:12:00 EDT, Height/Length Dosing, 85.85, kg, 10/06/24 9:53:00 EST, Weight Dosing Discharge Patient, 10/07/24 23:57:00 EST, Home Independently, Constant Indicator ?? Orders: THP ondansetron 4 mg Dis Tab, 4 tab, Oral, Misc, Once, First Dose: 10/07/24 23:54:00 EST, Stop Date: 10/07/24 23:54:00 EST, Physician Stop, STAT NS with potassium chloride 20 mEq/L 1,000 mL, Total Volume (mL): 1,000, 1,000 mL, Soln-IV, IV, 1,000 mL/hr, Start Date: 10/07/24 21:47:00 EST, 85.85 kg, Populate Charting Weight From Order Urinalysis with Micro if Indicated and Culture if Indicated, Urine, Stat Collect, 10/07/24 21:07:00EST, Once, Nurse collect, Print Label Patient Education Hyponatremia, [id number] Hypokalemia Viral Gastroenteritis, Adult, [id number] Follow Up With When Contact Information Follow up with primary care provider Only if needed Additional Instructions: Medication Reconciliation New Prescription ondansetron (ondansetron 4 mg oral tablet, disintegrating)1 tab Oral (given by mouth) 3 times a dayas needed nausea/vomiting for 4 Days. Refills: 0. ?? Unchanged acetaminophen3,000 Milligrams. taking 3000 mg per day. ?? albuterol (Albuterol (Eqv-Ventolin HFA) 90 mcg/inh inhalation aerosol)2 Puffs Inhale (breathe in) every 4 hours as needed. Refills: 3. ?? azithromycin (azithromycin 500 mg oral tablet)1 tab Oral (given by mouth) every day for 5 Days. Refills: 0. ?? budesonide/glycopyrrolate/formoterol (Breztri Aerosphere 160 mcg-9 mcg-4.8 mcg/inh inhalation aerosol)INHALE 2 PUFFS BY MOUTH TWICE DAILY. ?? doxycycline (doxycycline hyclate 100 mg oral capsule)1 Capsules Oral (given by mouth) 2 times a dayfor 10 Days. Refills: 0. ?? Durable Medical Equipment for Prescription (Nebulizer Machine with tubbing)Order [facility]ulizer [facility]tubbing [facility]. Refills: 0. ?? Durable Medical Equipment for [...] twice daily as needed. Refills: 0. ?? methocarbamol (methocarbamol 500 mg oral tablet)1 tab Oral (given by mouth) 4 times a day for 30 Days. Refills: 3. ?? miconazole topical (miconazole 2% topical cream)1 Application Topical (on the skin) 2 times a day. Refills: 1. ?? montelukast (montelukast 10 mg oral tablet)TAKE 1 TABLET BY MOUTH EVERY DAY. Refills: 3. ?? nystatin topical (Nystop 100,000 units/g topical powder)1 Application Topical (on the skin) 3 timesa day. Refills: 1. ?? predniSONE (predniSONE 20 mg oral tablet)1 tab Oral (given by mouth) 2 times a day. Refills: 0. ?? sertraline (sertraline 25 mg oral tablet)1 tab Oral (given by mouth) every day. Refills: 0. ?? tezepelumab (Tezspire Pre-filled Pen 210 mg/1.91 mL subcutaneous solution) ?? torsemide (torsemide 20 mg oral tablet)2 tab Oral (given by mouth) every day. Refills: 0. Problem List/Past Medical History Ongoing Acute exacerbation of chronic obstructive pulmonary disease (COPD) Allergic rhinitis Anxiety Asthma Breast cancer Chronic obstructive lung disease Cough Fungal skin infection Low back pain Historical Nicotine dependence Procedure/Surgical History ???CT of chest without contrast (12/19/2021)???Lumpectomy of right breast (11/20/2021)???Ultrasoundof right breast (09/07/2021)???Mammogram (08/11/2021)???PAP smear preparation (07/25/2017)???TL - Tubal ligation (10/21/1987)???Appendectomy (10/21/1984)???Cholecystectomy (10/21/1984)???Tonsillectomy (10/21/1967) Medication Administration Given NS with potassium chloride 20 mEq/L, 1000 mL, IV albuterol, 2.5 mg, Nebulized Inhalation Zofran, 4 mg, IV Push Zofran, 4 mg, IV Push Allergies ANIMAL DANDER CIGARETTE SMOKE HOUSE DUST WEED POLLEN amoxicillin??(Itching) codeine??(Itching) sulfa drugs??(Itching) Social History Alcohol Current, 1-2 times per year Electronic Cigarette/Vaping Electronic Cigarette Use: Former use, quit more than 90 days ago.- Comments: 2017 x 1 month 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 Nutrition/Health Diet: Regular. Caffeine intake amount: 3 cups of coffee daily. Sexual Sexual orientation: Straight or heterosexual. What is your current gender identity? (Check all thatapply) Identifies as female. Substance Use Never Tobacco Former tobacco user Tobacco Use:.- Comments: Quit 06/27/2018 Family History Patient was adopted Lab Results CBC and Differential?? LATEST RESULTS?? HISTORICAL RESULTS?? WBC?? 10/07/24 21:10?? 10.1 ??High?? 09/15/24?? 7.2?? RBC?? 10/07/24 21:10?? 3.6 ??Low?? 09/15/24?? 3.5 ??Low?? Hgb?? 10/07/24 21:10?? 11.1 ??Low?? 09/15/24?? 11.1 ??Low?? Hct?? 10/07/24 21:10?? 33.4 ??Low?? 09/15/24?? 34.3 ??Low?? MCV?? 10/07/24 21:10?? 93.8?? 09/15/24?? 97.2 ??High?? MCH?? 10/07/24 21:10?? 31.2?? 09/15/24?? 31.4?? MCHC?? 10/07/24 21:10?? 33.2?? 09/15/24?? 32.4?? RDW-CV?? 10/07/24 21:10?? 12.4?? 09/15/24?? 12.7?? Platelets?? 10/07/24 21:10?? 295?? 09/15/24?? 328?? Neutro Auto?? 10/07/24 21:10?? 71.7?? 09/15/24?? 62.8?? Lymph Auto?? 10/07/24 21:10?? 18.1 ??Low?? 09/15/24?? 26.7?? [place] Auto?? 10/07/24 21:10?? 9.0?? 09/15/24?? 8.2?? Eos, Auto?? 10/07/24 21:10?? 0.6 ??Low?? 09/15/24?? 1.0?? Basophil Auto?? 10/07/24 21:10?? 0.3?? 09/15/24?? 0.6?? Imm Gran Auto?? 10/07/24 21:10?? 0.3?? 09/15/24?? 0.7?? Neutro Absolute?? 10/07/24 21:10?? 7.2?? 09/15/24?? 4.5? Routine Chemistry?? LATEST RESULTS?? HISTORICAL RESULTS?? Sodium Level?? 10/07/24 21:10?? 127 ??Low?? 09/15/24?? 138?? Potassium Level?? 10/07/24 21:10?? 3.3 ??Low?? 09/15/24?? 3.6?? Chloride Level?? 10/07/24 21:10?? 91 ??Low?? 09/15/24?? 103?? CO2?? 10/07/24 21:10?? 26?? 09/15/24?? 26?? Alk Phos?? 10/07/24 21:10?? 125?? 09/15/24?? 110?? AST?? 10/07/24 21:10?? 39 ??High?? 09/15/24?? 17?? ALT?? 10/07/24 21:10?? 75 ??High?? 09/15/24?? 28?? BUN?? 10/07/24 21:10?? 18?? 09/15/24?? 13?? Glucose Level?? 10/07/24 21:10?? 119 ??High?? 09/15/24?? 78?? Creatinine Level?? 10/07/24 21:10?? 0.75?? 09/15/24?? 0.63?? eGFR AA?? 10/07/24 21:10?? 91?? 09/15/24?? 101?? eGFR Non-AA?? 10/07/24 21:10?? 91?? 09/15/24?? 101?? Calcium Level?? 10/07/24 21:10?? 9.0?? 09/15/24?? 9.2?? Protein Total?? 10/07/24 21:10?? 7.7?? 09/15/24?? 7.6?? Albumin Level?? 10/07/24 21:10?? 3.9?? 09/15/24?? 3.7?? Bilirubin Total?? 10/07/24 21:10?? 0.3?? 09/15/24?? 0.3?? Lipase Level?? 10/07/24 21:10?? 32? Cardiac Isoenzymes?? LATEST RESULTS?? Troponin-I?? 10/07/24 21:10?? <5.0?? NT-proBNP?? 10/07/24 21:10?? 39? Electronically Signed on 10/07/2024 23:59 EST Jossue Huynh MD Emergency department Discharge instructions * Jossue Huynh MD: PERFORM Event Display: ED Discharge Information Authored Date: [id number] ANGELITO TELLEZ :1965 Age:58 years Sex:Female Visit Date:10/07/2024 Primary Care Physician: Alicia Castorena MD Discharge Instructions We would like to thank you for allowing us to assist you with your healthcare needs. The following includes patient education materials and information regarding your injury/illness. Diagnosis from Today's Visit Hyponatremia Hypokalemia Gastroenteritis Discharge Vitals Temperature??(Temporal Artery) 96.8 ??F (36 ??C) Heart Rate??(Peripheral) 103 Heart Rate??(Monitored) 100 Respiratory Rate?? 19 Blood Pressure?? 117/67?? SpO2?? 100% Allergies ANIMAL DANDER CIGARETTE SMOKE HOUSE DUST WEED POLLEN amoxicillin??(Itching) codeine??(Itching) sulfa drugs??(Itching) What to Do Next Instructions from Your Care Team Stop the torsemide but continue the antibiotics and prednisone. ??Use your inhalers as needed.?? You can take a Zofran also called ondansetron as needed for nausea.?? Follow-up as needed if no improvement in the next week You Need to Schedule the Following Appointments Follow Up with??Follow up with primary care provider When:??Only if needed You were treated today on an emergency [...] Much When Why Instructions Next Dose New ondansetron (ondansetron 4 mg oral tablet, disintegrating) 1 tab Oral (given by mouth) 3 times a day as needed for nausea/vomiting Hyponatremia Hypokalemia Gastroenteritis Duration: 4 Days Pickup at [facility] #[id number] Unchanged acetaminophen 3,000 Milligrams taking 3000 mg per day ?? Unchanged albuterol (Albuterol (Eqv-Ventolin HFA) 90 mcg/ inh inhalation aerosol) 2 Puffs Inhale (breathe in) Every 4 hours as needed for NEEDED Unchanged azithromycin (azithromycin 500 mg oral tablet) 1 tab Oral (given by mouth) Every day COPD exacerbation Duration: 5 Days Unchanged budesonide/ glycopyrrolate/ formoterol (Breztri Aerosphere 160 mcg-9 mcg-4.8 mcg/ inh inhalation aerosol) INHALE 2 PUFFS BY MOUTH TWICE DAILY ?? Unchanged doxycycline (doxycycline hyclate 100 mg oral capsule) 1 Capsules Oral (given by mouth) 2 times a day COPD exacerbation Duration: 10 Days Unchanged Durable Medical Equipment for Prescription (Nebulizer Machine with tubbing) See instructions Asthma Order for Nebulizer with tubbing [facility] ?? Unchanged Durable Medical Equipment for [...] tablet twice daily as needed ?? Unchanged methocarbamol (methocarbamol 500 mg oral tablet) 1 tab Oral (given by mouth) 4 times a day Duration: 30 Days Unchanged miconazole topical (miconazole 2% topical cream) 1 Application Topical (on the skin) 2 times a day Yeast infection of the skin Unchanged montelukast (montelukast 10 mg oral tablet) See instructions TAKE 1 TABLET BY MOUTH EVERY DAY ?? Unchanged nystatin topical (Nystop 100,000 units/ g topical powder) 1 Application Topical (on the skin) 3 times a day Unchanged predniSONE (predniSONE 20 mg oral tablet) 1 tab Oral (given by mouth) 2 times a day COPD exacerbation Unchanged sertraline (sertraline 25 mg oral tablet) 1 tab Oral (given by mouth) Every day Unchanged tezepelumab (Tezspire Pre-filled Pen 210 mg/ 1.91 mL subcutaneous solution) Unchanged torsemide (torsemide 20 mg oral tablet) 2 tab Oral (given by mouth) Every day COPD exacerbation Pharmacy Information [facility] #[id number]: [address] [phone] [employer] Hyponatremia Hyponatremia is when the amount of salt (sodium) in your blood is too low. When salt levels are low, your body cells may take in extra water. This can cause swelling. The swelling often affects the brain. What are the causes? Certain medical problems or conditions. ? Vomiting a lot. ? Having watery poop (diarrhea) often. ? Sweating too much. ? Taking certain medicines or using illegal drugs. ? Fluids given through an IV tube. What increases the risk? Having heart, kidney, or liver failure. ? Having a medical condition that causes you to have watery poop a lot. ? Doing very hard exercises. ? Taking medicines that affect the amount of salt that is in your blood. What are the signs or symptoms? Symptoms of this condition include: ? Headache. ? Feeling like you may vomit (nausea). ? Vomiting. ? Being very tired. ? Muscle weakness and cramps. ? Not wanting to eat as much as normal. ? Feeling weak or dizzy. Very bad symptoms of this condition include: ? Confusion. ? Feeling restless. ? Having a fast heart rate. ? Fainting. ? Seizures. ? Coma. How is this treated? Treatment for this condition depends on the cause. Treatment may include: ? Getting fluids through an IV tube that is put into one of your veins. ? Taking medicines to fix the salt levels in your blood. If medicines are causing the problem, your medicines will need to be changed. ? Limiting how much water or fluid you take in, in some cases. ? Monitoring in the hospital to watch your symptoms. Follow these instructions at home: ? Take [id number] and prescription medicines only as told by your doctor. Many medicines can make this condition worse. Talk with your doctor about any medicines that you are taking. ? Do not drink alcohol. ? Keep all follow-up visits. Contact a doctor if: ? You feel more like you may vomit. ? You feel more tired. ? Your headache gets worse. ? You feel more confused. ? You feel weaker. ? Your symptoms go away and then they come back. Get help right away if: ? You have a seizure. ? You faint. ? You keep having watery poop. ? You keep vomiting. Summary ? Hyponatremia is when the amount of salt in your blood is too low. ? When salt levels are low, you can have swelling throughout the body. The swelling mostly affects the brain. ? Treatment depends on the cause. ? Treatment may include IV fluids and changing medicines. This information is not intended to replace advice given to you by your health care provider. Make sure you discuss any questions you have with your health care provider. Document Revised: 04/17/2022 Document Reviewed: 04/17/2022 [employer] Patient Education ?? 2022 [employer] Hypokalemia Hypokalemia means that the amount of potassium in the blood is lower than normal. Potassium is a mineral (electrolyte) that helps regulate the amount of fluid in the body. It also stimulates muscle tightening (contraction) and helps nerves work properly. Normally, most of the body's potassium is inside cells, and only a very small amount is in the blood. Because the amount in the blood is so small, minor changes to potassium levels in the blood can be life-threatening. What are the causes? This condition may be caused by: ? Antibiotic medicine. ? Diarrhea or vomiting. Taking too much of a medicine that helps you have a bowel movement (laxative)can cause diarrhea and lead to hypokalemia. ? Chronic kidney disease (CKD). ? Medicines that help the body get rid of excess fluid (diuretics). ? Eating disorders, such as anorexia or bulimia. ? Low magnesium levels in the body. ? Sweating a lot. What are the signs or symptoms? Symptoms of this condition include: ? Weakness. ? Constipation. ? Fatigue. ? Muscle cramps. ? Mental confusion. ? Skipped heartbeats or irregular heartbeat (palpitations). ? Tingling or numbness. How is this diagnosed? This condition is diagnosed with a blood test. How is this treated? This condition may be treated by: ? Taking potassium supplements. ? Adjusting the medicines that you take. ? Eating more foods that contain a lot of potassium. If your potassium level is very low, you may need to get potassium through an IV and be monitored in the hospital. Follow these instructions at home: Eating and drinking ? Eat a healthy diet. A healthy diet includes fresh fruits and vegetables, whole grains, healthy fats, and lean proteins. ? If told, eat more foods that contain a lot of potassium. These include: ? Nuts, such as peanuts and pistachios. ? Seeds, such as sunflower seeds and pumpkin seeds. ? Peas, lentils, and najera beans. ? Whole grain and bran cereals and breads. ? Fresh fruits and vegetables, such as apricots, avocado, bananas, cantaloupe, kiwi, oranges, tomatoes, asparagus, and potatoes. ? Juices, such as orange, tomato, and prune. ? Lean meats, including fish. ? Milk and milk products, such as yogurt. General instructions ? Take qily-xcq-mytvtne and prescription medicines only as told by your health care provider. This includes vitamins, natural food products, and supplements. ? Keep all follow-up visits. This is important. Contact a health care provider if: ? You have weakness that gets worse. ? You feel your heart pounding or racing. ? You vomit. ? You have diarrhea. ? You have diabetes and you have trouble keeping your blood sugar in your target range. Get help right away if: ? You have chest pain. ? You have shortness of breath. ? You have vomiting or diarrhea that lasts for more than 2 days. ? You faint. These symptoms may be an emergency. Get help right away. Call 911. ? Do not wait to see if the symptoms will go away. ? Do not drive yourself to the hospital. Summary ? Hypokalemia means that the amount of potassium in the blood is lower than normal. ? This condition is diagnosed with a blood test. ? Hypokalemia may be treated by taking potassium supplements, adjusting the medicines that you take, or eating more foods that are high in potassium. ? If your potassium level is very low, you may need to get potassium through an IV and be monitored in the hospital. This information is not intended to replace advice given to you by your health care provider. Make sure you discuss any questions you have with your health care provider. Document Revised: 06/21/2022 Document Reviewed: 06/21/2022 [employer] Patient Education ?? 2022 [employer]. Viral Gastroenteritis, Adult Viral gastroenteritis is also known as the stomach flu. This condition may affect your stomach, your small intestine, and your large intestine. It can cause sudden watery poop (diarrhea), fever, and vomiting. This condition is caused by certain germs (viruses). These germs can be passed from personto person very easily (are contagious). Having watery poop and vomiting can make you feel weak and cause you to not have enough water in your body (get dehydrated). This can make you tired and thirsty, make you have a dry mouth, and make it so you pee (urinate) less often. It is important to replace the fluids that you lose from having watery poop and vomiting. What are the causes? You can get sick by catching germs from other people. ? You can also get sick by: ? Eating food, drinking water, or touching a surface that has the germs on it (is contaminated). ? Sharing utensils or other personal items with a person who is sick. What increases the risk? Having a weak body defense system (immune system). ? Living with one or more children who are younger than 2 years. ? Living in a detention. ? Going on cruise ships. What are the signs or symptoms? Symptoms of this condition start suddenly. Symptoms may last for a few days or for as long as a week. ? Common symptoms include: ? Watery poop. ? Vomiting. ? Other symptoms include: ? Fever. ? Headache. ? Feeling tired (fatigue). ? Pain in the belly (abdomen). ? Chills. ? Feeling weak. ? Feeling like you may vomit (nauseous). ? Muscle aches. ? Not feeling hungry. How is this treated? This condition typically goes away on its own. The focus of treatment is to replace the fluids thatyou lose. This condition may be treated with: ? An ORS (oral rehydration solution). This is a drink that helps you replace fluids and minerals yourbody lost. It is sold at pharmacies and stores. ? Medicines to help with your symptoms. ? Probiotic supplements to reduce symptoms of watery poop. ? Fluids given through an IV tube, if needed. Older adults and people with other diseases or a weak body defense system are at higher risk for not having enough water in the body. Follow these instructions at home: Eating and drinking ? Take an ORS as told by your doctor. ? Drink clear fluids in small amounts as you are able. Clear fluids include: ? Water. ? Ice chips. ? Fruit juice that has water added to it (is diluted). ? Low-calorie sports drinks. ? Drink enough fluid to keep your pee (urine) pale yellow. ? Eat small amounts of healthy foods every 3???4 hours as you are able. This may include whole grains, fruits, vegetables, lean meats, and yogurt. ? Avoid fluids that have a lot of sugar or caffeine in them. This includes energy drinks, sports drinks, and soda. ? Avoid spicy or fatty foods. ? Avoid alcohol. General instructions ? Wash your hands often. This is very important after you have watery poop or you vomit. If you cannot use soap and water, use hand emt b. ? Make sure that all people in your home wash their hands well and often. ? Take qpwp-jie-jeyxlqd and prescription medicines only as told by your doctor. ? Rest at home while you get better. ? Watch your condition for any changes. ? Take a warm bath to help with any burning or pain from having watery poop. ? Keep all follow-up visits. Contact a doctor if: ? You cannot keep fluids down. ? Your symptoms get worse. ? You have new symptoms. ? You feel light-headed or dizzy. ? You have muscle cramps. Get help right away if: ? You have chest pain. ? You have trouble breathing, or you are breathing very fast. ? You have a fast heartbeat. ? You feel very weak or you faint. ? You have a very bad headache, a stiff neck, or both. ? You have a rash. ? You have very bad pain, cramping, or bloating in your belly. ? Your skin feels cold and clammy. ? You feel mixed up (confused). ? You have pain when you pee. ? You have signs of not having enough water in the body, such as: ? Dark pee, hardly any pee, or no pee. ? Cracked lips. ? Dry mouth. ? Sunken eyes. ? Feeling very sleepy. ? Feeling weak. ? You have signs of bleeding, such as: ? You see blood in your vomit. ? Your vomit looks like coffee grounds. ? You have bloody or black poop or poop that looks like tar. These symptoms may be an emergency. Get help right away. Call 911. ? Do not wait to see if the symptoms will go away. ? Do not drive yourself to the hospital. Summary ? Viral gastroenteritis is also known as the stomach flu. ? This condition can cause sudden watery poop (diarrhea), fever, and vomiting. ? These germs can be passed from person to person very easily. ? Take an ORS (oral rehydration solution) as told by your doctor. This is a drink that is sold at pharmacies and stores. ? Wash your hands often, especially after having watery poop or vomiting. If you cannot use soap and water, use hand emt b. This information is not intended to replace advice given to you by your health care provider. Make sure you discuss any questions you have with your health care provider. Document Revised: 08/06/2022 Document Reviewed: 08/06/2022 [employer] Patient Education ?? 2022 [employer] Tests Performed Medications and Immunizations Administered Given NS with potassium chloride 20 mEq/L, 1000 mL, IV albuterol, 2.5 mg, Nebulized Inhalation Zofran, 4 mg, IV Push Zofran, 4 mg, IV Push Lab Test Name Test Result Date/Time WBC 10.1 x10^3/mcL 10/07/2024 21:10 EST RBC 3.6 x10^6/mcL 10/07/2024 21:10 EST Hgb 11.1 g/dL 10/07/2024 21:10 EST Hct 33.4 % 10/07/2024 21:10 EST MCV 93.8 fL 10/07/2024 21:10 EST MCH 31.2 pg 10/07/2024 21:10 EST MCHC 33.2 g/dL 10/07/2024 21:10 EST RDW-CV 12.4 % 10/07/2024 21:10 EST Platelets 295 x10^3/mcL 10/07/2024 21:10 EST Neutro Auto 71.7 % 10/07/2024 21:10 EST Lymph Auto 18.1 % 10/07/2024 21:10 EST [place] Auto 9.0 % 10/07/2024 21:10 EST Eos, Auto 0.6 % 10/07/2024 21:10 EST Basophil Auto 0.3 % 10/07/2024 21:10 EST Imm Gran Auto 0.3 % 10/07/2024 21:10 EST Neutro Absolute 7.2 x10^3/mcL 10/07/2024 21:10 EST Sodium Level 127 mmol/L 10/07/2024 21:10 EST Potassium Level 3.3 mmol/L 10/07/2024 21:10 EST Chloride Level 91 mmol/L 10/07/2024 21:10 EST CO2 26 mmol/L 10/07/2024 21:10 EST Alk Phos 125 unit/L 10/07/2024 21:10 EST AST 39 unit/L 10/07/2024 21:10 EST ALT 75 unit/L 10/07/2024 21:10 EST BUN 18 mg/dL 10/07/2024 21:10 EST Glucose Level 119 mg/dL 10/07/2024 21:10 EST Creatinine Level 0.75 mg/dL 10/07/2024 21:10 EST eGFR AA 91 10/07/2024 21:10 EST eGFR Non-AA 91 10/07/2024 21:10 EST Calcium Level 9.0 mg/dL 10/07/2024 21:10 EST Protein Total 7.7 g/dL 10/07/2024 21:10 EST Albumin Level 3.9 g/dL 10/07/2024 21:10 EST Bilirubin Total 0.3 mg/dL 10/07/2024 21:10 EST Lipase Level 32 unit/L 10/07/2024 21:10 EST Troponin-I <5.0 pg/mL 10/07/2024 21:10 EST NT-proBNP 39 pg/mL 10/07/2024 21:10 EST Patient/Electrical Controls Technician Signature Patient Name:ANGELITO TELLEZ I have received this information and my questions have been answered. Patient/Electrical Controls Technician Name: Patient/Electrical Controls Technician Signature: Relationship to Patient: Witness Name/Signature: Date: Electronically Signed on: 10/07/2024 23:59 ESTSigned by:MRОльга Discharge summary * Grace Shetty: PERFORM Event Display: Discharge Note Authored Date: * Grace Shetty: PERFORM Event Display: Discharge Note Authored Date: Diagnosis: 1. Hyponatremia Comment: Diagnosis: 2. Hypokalemia Comment: Diagnosis: 3. Gastroenteritis Comment: Diagnosis: Nausea Comment: Diagnosis: Vomiting Comment: Electronically Signed on 10/08/2024 00:11 EST Grace Shetty Patient Care team information Care Team Personnel Name: Alicia Castorena MD Position: Physician Member Role: Informed Provider Address: [address] [place] [id number]- [place] Telecom: Name: Denise Contreras Position: Ambulatory - RN/RESTAURANT KITCHEN MANAGER ([place]) Member Role: Slot Host Name: Dylan Cummings MD Position: No Access Member Role: Sketcher Address: [facility] [address] [facility] [place], [place] [address] Telecom: Care Team Related Persons Name: ZOFIA TELLEZ Name: JUAN PATRICK Insurance Providers Guarantor name: ANGELITO TELLEZ Health Plan Information #: 2 Payer: [employer] Member Number: [id number] Policy Number: NA Group Number: NA Health Plan Information #: 1 Payer: MEDICARE B [employer] Member Number: [id number] Policy Number: NA Group Number: NA
--- OUTSIDE RECORDS SUMMARY | 2024-10-26 16:30 | XMS_ITS | Continuity of Care Document ---
Author Organization [facility] Address [address] [place] [address] Care Team Providers Care Sulfate Drier Machine Operator Name Role Phone Alicia Castorena Primary Care Physician [phone] Denise Contreras Unavailable Unavailable Encounter [id number] Date(s): 11/22/23 - 11/22/23 [facility] [address] [place] [address] Discharge Disposition: Home or Self Care Attending Physician: Meera Burgos APRN Admitting Physician: Meera Burgos APRN Referring Physician: Meera Burgos APRN Allergies, Adverse Reactions, Alerts Substance Reaction Severity Status HOUSE DUST Unknown Active WEED POLLEN Unknown Active ANIMAL DANDER Unknown Active CIGARETTE SMOKE Unknown Active codeine Itching Unknown Active amoxicillin Itching Unknown Active sulfa drugs Itching Unknown Active Immunizations Given and Recorded [...] NEEDED, # 18 g, 0 Refill(s), Pharmacy: [facility] #[id number], 146, cm, 07/26/22 7:23:00 EDT, Height/Length Dosing, [...] BID, # 14 cap, 0 Refill(s), Pharmacy: [facility] #[id number], 146, cm, 08/09/23 12:12:00 EDT, Height/Length Dosing, [...] NEEDED, # 180 mL, 11 Refill(s), Pharmacy: [facility] #[id number], 146, cm, 07/26/22 7:23:00 EDT, Height/Length Dosing, 67, kg, 07/26/22 7:23:00 EDT, Weight Dosing Start Date: 04/01/23 Status: Ordered loratadine 10 mg oral tablet 1 tab, Oral, Daily, 0 Refill(s) Start Date: 03/13/22 Status: Ordered LORazepam 0.5 mg oral tablet See Instructions, 1 tablet twice daily as needed, # 60 tab, 0 Refill(s), Pharmacy: [facility] #[id number], 146, cm, 08/09/23 12:12:00 EDT, Height/Length Dosing, 80.2, kg, 08/09/23 12:12:00 EDT, Weight Dosing Start Date: 10/24/23 Status: Ordered montelukast 10 mg oral tablet See Instructions, TAKE 1 TABLET BY MOUTH EVERY DAY, # 90 tab, 3 Refill(s), Pharmacy: [id number] Start Date: 06/12/22 Status: Ordered Nebulizer Machine with tubbing Nebulizer Machine with tubbing, Order for Nebulizer with tubbing [place], See instructions, # 1 EA, 0 [...] days, # 30 tab, 0 Refill(s), Pharmacy: [facility] #[id number], 146, cm, 08/09/23 12:12:00 EDT, Height/Length Dosing, 80.2, kg, 08/09/23 12:12:00 EDT, Weight Dosing Start Date: 10/10/23 Status: Ordered sertraline 25 mg oral tablet 1 tab, Oral, Daily, # 90 tab, 0 Refill(s), Pharmacy: [id number], 146, cm, 08/09/23 12:12:00 EDT, Height/Length Dosing, 80.2, kg, 08/09/23 12:12:00 EDT, Weight Dosing Start Date: 08/16/23 Status: Ordered Tezspire Pre-filled Pen 210 mg/1.91 [...] Tobacco Use:. 1 Sex Female 1Quit 06/27/2018 Pulmonary function study * Event Display: Pulmonary Function Studies Please click on link to view image. Patient Care team information Care Team Personnel Name: Alicia Castorena MD Position: Physician Member Role: Informed Provider Address: Address: [address] [place] [address] Name: Denise Contreras Position: Ambulatory - RN/PODIATRIC FOOT AND ANKLE SPECIALIST ([place]) Member Role: Vice President Of Marketing Name: Dylan Cummings MD Position: No Access Member Role: Composition Tile Layer Address: Address: [address] Care Team Related Persons Name: ZOFIA TELLEZ Name: JUAN PATRICK Address: Home [address] [place] [phone] Name: JUAN PATRICK Address: Home [address] [place] [phone]
--- OUTSIDE RECORDS SUMMARY | 2024-10-26 16:31 | XMS_ITS | Encounter Summary ---
[place] [address] Care Team Providers Care Welder Production Line Combination Name Role Phone Brittany Wynne MD Primary Care Provider + Reason for Referral * Diagnostic Test (Routine) - Closed Specialty Diagnoses / Procedures Referred By Contac t Referred To Contact Cardiology Diagnoses Chronic obstructive pulmonary disease, unspecified COPD type Procedures Echocardiogram Transthoracic Meera Burgos APRN [facility] [place] [address] [facility] [place] [address] Referral ID Status Reason Start Date Expiration Date V isits Requested Visits Authorized [id number] Closed Specialty Service Requested 09/24/2023 09/23/2024 1 1 Reason for Visit * Diagnostic Test (Routine) - Closed Specialty Diagnoses / Procedures Referred By Contac t Referred To Contact Cardiology Diagnoses Chronic obstructive pulmonary disease, unspecified COPD type Procedures Echocardiogram Transthoracic Meera Burgos APRN [facility] [place] [address] [facility] [place] [address] Referral ID Status Reason Start Date Expiration Date V isits Requested Visits Authorized [id number] Closed Specialty Service Requested 09/24/2023 09/23/2024 1 1 Encounter Details Date Type Department Care Team (Latest Contact Info) Description 04/08/2024 10:00 AM EDT - 04/08/2024 11:59 PM EDT Hospital Encounter Non-Invasive Cardiology Lab [facility] [place] [address] Meera Burgos, BETTY [facility] [place] [address] Chronic obstructive pulmonary disease, unspecified COPD type Discharge Disposition: Home Social History Tobacco Use Types Packs/Day Years Used Date Smoking Tobacco: Former Cigarettes Q uit: 12/17/2021 Smokeless Tobacco: Never Alcohol Use Standard Drinks/Week Comments Not Currently 0 (1 standard drink = 0.6 oz pur e alcohol) rare prior Overall Financial Resource Strain (CARDIA) Answe r Date Recorded How hard is it for you to pa y for the very basics like food, housing, medical care, and heating? Not very hard 11/06/2021 Hunger Vital Sign Answer Date Recorded Within the past 12 months, y ou worried that your food would run out before you got the money to buy more. Never true 11/06/19 22 Within the past 12 months, t he food you bought just didn't last and you didn't have money to get more. Never true 11/06/2021 PRAPARE - Transportation Answer Date Re corded In the past 12 months, has l ack of transportation kept you from medical appointments or from getting medications? No 10/21 In the past 12 months, has l ack of transportation kept you from meetings, work, or from getting things needed for daily living? No 11/06/2021 Housing Stability Vital Sign Answer Damion e Recorded In the last 12 months, was t here a time when you were not able to pay the mortgage or rent on time? No 11/06/2021 In the last 12 months, how many places have you lived? 1 11/06/2021 In the last 12 months, was t here a time when you did not have a steady place to sleep or slept in a m[facility]p (including now)? No 11/06/2021 Sex and Gender Information Value Date Recorded Sex Assigned at Female 10/16/2021 7:15 PM EST Gender Identity Female 10/16/2021 7:15 PM EST Sexual Orientation Straight 10/16/2021 7: 15 PM EST documented as of this encounter Medications at Time of Discharge Medication Sig Dispensed Refills Start Date End Date predniSONE (Deltasone) 20 mg tablet Take 20 mg by mouth 2 times daily. 04/06/2024 triamcinolone (Nasacort/Nasacort OTC) 55 mcg nasal inhaler 1 spray daily. 12/27/2023 Tezspire 210 mg/1.91 mL (110 mg/mL) Pen Injector Inject into the muscle every 30 days. 10/08/2023 miconazole (Micotin) 2 % Cream Apply topically 2 times daily. APPLY TOPICALLY TO THE AFFECTED AREA TWICE DAILY 12/18/2023 roflumilast (Daliresp) 500 mcg tablet Take 500 mcg by mouth daily. nystatin (MYCOSTATIN) 100,000 unit/gram PowderIndications:Fungal dermatitis Apply topically 2 times daily. Use for 2 weeks. 30 g 1 03/02/2024 Zoloft 25 mg tablet Take 25 mg by mouth daily. 03/13/2023 LORazepam (Ativan) 0.5 mg tablet Take 0.5 mg by mouth. Take 0.5 tablet prn albuteroL (Proventil, Ventolin) (2.5 mg/3 mL) (0.083 %) Solution for Nebulization Take 3 mLs by nebulization every 4 hours as needed for Wheezing or Shortness of Breath. 09/04/2022 Breztri Aerosphere 160-9-4.8 mcg/actuation HFA Aerosol Inhaler Inhale 2 puffs into the lungs 2 times daily. 08/09/2022 guaiFENesin ER (Mucinex) 600 mg Tablet Extended Release 12hr Take 1,200 mg by mouth 2 times daily as needed for Congestion. ibuprofen (Advil) 200 mg Tablet Take 200 mg by mouth every 6 hours as needed for Pain. loratadine (Claritin) 10 mg Tablet Take 10 mg by mouth daily. acetaminophen (Tylenol) 500 mg Tablet Take 1,000 mg by mouth every 6 hours as needed for Pain. montelukast (Singulair) 10 mg Tablet Take 10 mg by mouth nightly. 09/06/2021 ipratropium-albuteroL (Duoneb) 0.5 mg-3 mg(2.5 mg base)/3 mL Solution for Nebulization Take 3 mLs by nebulization every 4 hours as needed. 10/07/2021 documented as of this encounter Plan of Treatment Upcoming Encounters Date Type Department Care Team (Late st Contact Info) Description 01/11/2025 1:00 PM EDT Office Visit Radiation Oncology at [address] [phone] Misty Llanos MD [facility] [place] [address] 08/23/2025 1:10 PM EST Appointment Mammography/DXA at [place] [phone] Jody Tam APRN [facility] [place] [address] 08/23/2025 2:10 PM EST Office Visit General Surgery at [place] [phone] Jody Tam CNC OPERATOR PROGRAMMER [facility] [place] [address] documented as of this encounter Procedures Procedure Name Priority Date/Time Associated Diagnosis Comments ECHO COMPLETE Routine 04/08/2024 10:58 AM EDT Chronic obstructive pulmonary disease, unspecified COPD type documented in this encounter Results * ECHO COMPLETE (04/08/2024 10:58 AM EDT) Anatomical Region Laterality Modality Cardiac Other 04/08/2024 10:2 8 AM EDT Narrative 04/08/2024 11:43 AM EDT [address] [place] [id number] ? Echocardiogram Report Name: GENA MORALES ? Study Date: 04/08/2024 10:28 AMBP: 140/85 mmHg ? Patient Location: ? HR: 84 : 1965 ? Height: 150 cm ? Account: [id number] Age: 58 yrs ? Weight: 85 kg Gender: Female ?BSA: 1.8 m2 Ordering Physician: MEERA BURGOS Referring Physician: MEERA BURGOS Performed By: Mary Lopez RDCS Reason For Study: COPD Interpreting Fellow: Berta Mathew. Exam Location: [facility]. Interpretation Summary Left ventricle is of normal size. Wall thickness is normal. Left ventricular systolic function is normal. LVEF is 63% by Frias's biplane. There are no segmental wall motion abnormalities. Diastolic function is normal. The right ventricle is of normal size. Right ventricular systolic function is normal. Pulmonary artery systolic pressure is 29 mmHg (assuming right atrial pressure of 3 mmHg). No significant valvular abnormalities. No prior echocardiogram for comparison. Procedure Complete-[id number]. Satisfactory quality. There is normal sinus rhythm. Left Ventricle Left ventricle is of normal size. Wall thickness is normal. Left ventricular systolic function is normal. The left ventricular ejection fraction is 63% by Frias's biplane. There are no segmental wall motion abnormalities. Right Ventricle The right ventricle is of normal size. Right ventricular systolic function is normal. Left Atrium The left atrium is normal. No abnormality of the interatrial septum is identified. Right Atrium The right atrium is normal. Aortic Valve The aortic valve is tricuspid. There is no aortic stenosis. There is no aortic regurgitation. Mitral Valve The mitral valve is structurally normal. There is mild mitral regurgitation. Tricuspid Valve The tricuspid valve is structurally and functionally normal. There is trace tricuspid regurgitation. Pulmonic Valve The pulmonic valve appears to be structurally and functionally normal. There is no pulmonic valve regurgitation. Great Arteries The aortic root is of normal size. No abnormalities are identified. No abnormalities of the pulmonary artery are identified. Venous Inferior vena cava is normal in size. Inferior vena cava collapse greater than 50% with respiration. Pericardium/Pleural There is no pericardial effusion. Hemodynamics The peak right ventricular systolic pressure is 29 mmHg. The estimated right atrial pressure is 3mmHg. Left ventricular diastolic function is normal. Left ventricular filling pressure is normal. Ejection Fraction ?2D Measurements ? Volumes EF(MOD-bp): 63.4 % ?IVSd: 0.89 cm ?LAV(MOD- bp) Indexed: ?LVIDd: 4.7 cm ?LVIDs: 3.2 cm ?23.9 ml/m2 ?LVPWd: 0.87 cm ? RA A4Cs_phl: 8.1 cm2 ?RWT: 0.37 {ratio} ?EDV(MOD-bp) Indexed: ?LV mass(C)d: 138.9 grams ? 60.8 ml/m2 ?LV mass(C)dI: 77.4 grams/m2 ?ESV(MOD- bp) Indexed: ?Ao root diam: 3.1 cm ? 22.2 ml/m2 ?Ao root diam index: 1.7 ?SV(LVOT): 71.4 ml ?asc Aorta Diam: 3.0 cm ? LV Stroke Volume: 71.3 ml ?LVOT diam: 2.0 cm ? SI(LVOT): 39.8 ml/m2 Doppler LV V1 VTI: 23.1 cm LVOT max Velocity: 99.1 cm/sec Ao Max: 124.3 cm/sec Ao valve max: 6.2 mmHg MV E max ru: 82.9 cm/sec MV A max ru: 83.2 cm/sec MV E/A: 1.00 MV dec time: 0.08 sec Lat Peak E' Ru: 11.9 cm/sec E/e' (lat): 7.0 Med Peak E' Ru: 13.7 cm/sec E/e' (med): 6.0 E/e' Average: 6.5 TR max ru: 254.2 cm/sec I ?WMSI = 1.00 ? % Normal = 100 ?Segments ??Size X - Cannot ?? 1 - Normal ?? 2 - ? 3 - Akinetic 4 - ?1-2 ? small Interpret ? Hypokinetic ?Dyskinetic ?? 3-5 ? moderate 5 - ? 6-14 ?large Aneurysmal ?15-16 ?? diffuse Procedure Note Jarrett Lowry MD - 04/08/2024 [address] [place] [id number] Echocardiogram Report Name: MORALESGENA Study Date: 410:28 AMBP: 140/85 mmHg Patient Location: HR: 84 : 1965 Height: 150 cm Account: [id number] Age: 58 yrs Weight: 85 kg Gender: Female BSA: 1.8 m2 Ordering Physician: MEERA BURGOS Referring Physician: MEERA BURGOS Performed By: Mary Lopez RDCS Reason For Study: COPD Interpreting Fellow: Berta Mathew. Exam Location: [facility]. Interpretation Summary Left ventricle is of normal size. Wall thickness is normal. Leftventricular systolic function is normal. LVEF is 63% by Frias's biplane. There areno segmental wall motion abnormalities. Diastolic function is normal. The right ventricle is of normal size. Right ventricular systolic functionis normal. Pulmonary artery systolic pressure is 29 mmHg (assuming rightatrial pressure of 3 mmHg). No significant valvular abnormalities. No prior echocardiogram for comparison. Procedure Complete-[id number]. Satisfactory quality. There is normal sinus rhythm. Left Ventricle Left ventricle is of normal size. Wall thickness is normal. Leftventricular systolic function is normal. The left ventricular ejection fraction is 63%by Frias's biplane. There are no segmental wall motion abnormalities. Right Ventricle The right ventricle is of normal size. Right ventricular systolic functionis normal. Left Atrium The left atrium is normal. No abnormality of the interatrial septum isidentified. Right Atrium The right atrium is normal. Aortic Valve The aortic valve is tricuspid. There is no aortic stenosis. There is noaortic regurgitation. Mitral Valve The mitral valve is structurally normal. There is mild mitralregurgitation. Tricuspid Valve The tricuspid valve is structurally and functionally normal. There istrace tricuspid regurgitation. Pulmonic Valve The pulmonic valve appears to be structurally and functionally normal.There is no pulmonic valve regurgitation. Great Arteries The aortic root is of normal size. No abnormalities are identified. No abnormalities of the pulmonary artery are identified. Venous Inferior vena cava is normal in size. Inferior vena cava collapse greaterthan 50% with respiration. Pericardium/Pleural There is no pericardial effusion. Hemodynamics The peak right ventricular systolic pressure is 29 mmHg. The estimatedright atrial pressure is 3mmHg. Left ventricular diastolic function is normal.Left ventricular filling pressure is normal. Ejection Fraction 2D Measurements Volumes EF(MOD-bp): 63.4 % IVSd: 0.89 cm LAV(MOD-bp)Indexed: LVIDd: 4.7 cm LVIDs: 3.2 cm 23.9 ml/m2 LVPWd: 0.87 cm RA A4Cs_phl: 8.1cm2 RWT: 0.37 {ratio} EDV(MOD-bp)Indexed: LV mass(C)d: 138.9 grams 60.8 ml/m2 LV mass(C)dI: 77.4 grams/m2 ESV(MOD-bp)Indexed: Ao root diam: 3.1 cm 22.2 ml/m2 Ao root diam index: 1.7 SV(LVOT): 71.4ml asc Aorta Diam: 3.0 cm LV Stroke Volume:71.3 ml LVOT diam: 2.0 cm SI(LVOT): 39.8ml/m2 Doppler LV V1 VTI: 23.1 cm LVOT max Velocity: 99.1 cm/sec Ao Max: 124.3 cm/sec Ao valve max: 6.2 mmHg MV E max ru: 82.9 cm/sec MV A max ru: 83.2 cm/sec MV E/A: 1.00 MV dec time: 0.08 sec Lat Peak E' Ru: 11.9 cm/sec E/e' (lat): 7.0 Med Peak E' Ru: 13.7 cm/sec E/e' (med): 6.0 E/e' Average: 6.5 TR max ru: 254.2 cm/sec I WMSI = 1.00 % Normal = 100 SegmentsSize X - Cannot 1 - Normal 2 - 3 - Akinetic 4 - 1-2small Interpret Hypokinetic Dyskinetic 3-5moderate 5 - 6-14large Aneurysmal 15-16diffuse Meear Burgos APRN ECHO ORDERABLES documented in this encounter Visit Diagnoses Diagnosis Chronic obstructive pulmonary disease, unspecified COPD type documented in this encounter Care Teams Welder Production Line Combination Relationship Specialty Start Date End Date Brittany Wynne MD [address] [place] [address] [place] [address] PCP - General Family Medicine 10/23/21 documented as of this encounter
--- OUTSIDE RECORDS SUMMARY | 2024-10-26 16:31 | XMS_ITS | Continuity of Care Document ---
Author Organization [facility] Address [address] [place] [address] Care Team Providers Care Bathhouse Attendant Name Role Phone Alicia Castorena Primary Care Physician Denise Contrears Unavailable Unavailable Encounter [facility] Date(s): 10/07/24 - 10/08/[address] [address] Encounter Diagnosis Hyponatremia(Discharge Diagnosis) - 10/07/24 Hypokalemia(Discharge [...] tab, 0 Refill(s), 10/11/24 23:58:00 EST, [facility]acy: [facility] #[id number], 146, cm, 08/09/23 12:12:00 EDT, Height/Length Dosing, 85.85, kg, 10/06/24 9:53:00 EST, Weight Dosing Discharge Patient, 10/07/24 23:57:00 EST, Home Independently, Constant Indicator ?? 2.??Hypokalemia??E87.6 Ordered: ondansetron 4 mg oral tablet, disintegrating, 4 mg = 1 tab, Oral, TID, PRN nausea/vomiting, X 4 days, # 12 tab, 0 Refill(s), 10/11/24 23:58:00 EST, [facility]acy: [facility] #[id number], 146, cm, 08/09/23 12:12:00 EDT, Height/Length Dosing, 85.85, kg, 10/06/24 9:53:00 EST, Weight Dosing Discharge Patient, 10/07/24 23:57:00 EST, Home Independently, Constant Indicator ?? 3.??Gastroenteritis??K52.9 Ordered: ondansetron 4 mg oral tablet, disintegrating, 4 mg = 1 tab, Oral, TID, PRN nausea/vomiting, X 4 days, # 12 tab, 0 Refill(s), 10/11/24 23:58:00 EST, [facility]acy: [facility] #[id number], 146, cm, 08/09/23 12:12:00 EDT, Height/Length Dosing, [...] Nurse collect, Print Label Patient Education Hyponatremia, Pwmn-ti-Jasz Hypokalemia Viral Gastroenteritis, Adult, Bdxt-th-Pzuv Follow Up With When Contact Information Follow [...] Comment: patient staetdt the vaccine was through [facility] 2Result Comment: tolerated well 3Result Comment: [...] %] 18.1 % *LOW* (10/07/24 9:10 PM) Payette Auto [2.0-15.0 %] 9.0 % (10/07/24 9:10 [...] (10/07/24 9:10 PM) 1Interpretive Data: Effective 08/09/22, [facility] has switched to a revised Lipase test.Note [...] Discharge Instructions Patient Education 10/07/2024 22:57:44 Hyponatremia, Klni-qq-Yjxq Hyponatremia Hyponatremia is when the amount of [...] Follow these instructions at home: ??? Take wama-xpb-rvnfnal and prescription medicines only as told by [...] provider. Document Revised: 04/17/2022 Document Reviewed: 04/17/2022 [employer] Patient Education ?? 2022 [employer]. 10/07/2024 22:57:40 Hypokalemia Hypokalemia Hypokalemia means that [...] such as yogurt. General instructions ??? Take hfkx-cuu-frefahx and prescription medicines only as told by [...] provider. Document Revised: 06/21/2022 Document Reviewed: 06/21/2022 [employer] Patient Education ?? 2022 [employer]. 10/07/2024 22:57:35 Viral Gastroenteritis, Adult, Dfru-br-Gtbz Viral Gastroenteritis, Adult Viral gastroenteritis is also [...] than 2 years. ??? Living in a fci. ??? Going on cruise ships. What are [...] cannot use soap and water, use hand cafe operator. ??? Make sure that all people in your home wash their hands well and often. ??? Take aizc-kmt-lmhyhuc and prescription medicines only as told by [...] This is a drink that is sold at[employer] and stores. ??? Wash your hands often, especially after having watery poop or vomiting. If you cannot use soap and water, use hand cafe operator. This information is not intended to replace advice given to you by your health care provider. Make sure you discuss any questions you have with your health care provider. Document Revised: 08/06/2022 Document Reviewed: 08/06/2022 [employer] Patient Education ?? 2022 [employer]. Follow Up Care 10/07/2024 20:52:46 With:Follow up with primary care provider Address: When: only if needed Physician Emergency department Note * Jossue Huynh MD: PERFORM Event Display: ED Note Physician Authored Date: [id number] GEOFFANGELITO :1965 Age:58 years Sex:Female Visit Date:10/07/2024 [...] 21:10:00 Lymph Auto 18.1 %??Low 10/07/24 21:10:00 Payette Auto 9 % 10/07/24 21:10:00 Eos, Auto [...] tab, 0 Refill(s), 10/11/24 23:58:00 EST, [facility]acy: [facility] #[id number], 146, cm, 08/09/23 12:12:00 EDT, Height/Length Dosing, 85.85, kg, 10/06/24 9:53:00 EST, Weight Dosing Discharge Patient, 10/07/24 23:57:00 EST, Home Independently, Constant Indicator ?? 2.??Hypokalemia??E87.6 Ordered: ondansetron 4 mg oral tablet, disintegrating, 4 mg = 1 tab, Oral, TID, PRN nausea/vomiting, X 4 days, # 12 tab, 0 Refill(s), 10/11/24 23:58:00 EST, [facility]acy: [facility] #[id number], 146, cm, 08/09/23 12:12:00 EDT, Height/Length Dosing, 85.85, kg, 10/06/24 9:53:00 EST, Weight Dosing Discharge Patient, 10/07/24 23:57:00 EST, Home Independently, Constant Indicator ?? 3.??Gastroenteritis??K52.9 Ordered: ondansetron 4 mg oral tablet, disintegrating, 4 mg = 1 tab, Oral, TID, PRN nausea/vomiting, X 4 days, # 12 tab, 0 Refill(s), 10/11/24 23:58:00 EST, [facility]acy: [facility] #[id number], 146, cm, 08/09/23 12:12:00 EDT, Height/Length Dosing, [...] Nurse collect, Print Label Patient Education Hyponatremia, Igju-hw-Hcie Hypokalemia Viral Gastroenteritis, Adult, Qcwi-pr-Kcep Follow Up With When Contact Information Follow [...] (Nebulizer Machine with tubbing)Order for Nebulizer withtubbing [facility]. Refills: 0. ?? Durable Medical [...] Auto?? 10/07/24 21:10?? 18.1 ??Low?? 09/15/24?? 26.7?? Payette Auto?? 10/07/24 21:10?? 9.0?? 09/15/24?? 8.2?? Eos, [...] Event Display: ED Discharge Information Authored Date: [id number] ANGELITO TELLEZ :1965 Age:58 years Sex:Female Visit [...] Hypokalemia Gastroenteritis Duration: 4 Days Pickup at [facility] #[id number] Unchanged acetaminophen 3,000 Milligrams taking 3000 mg [...] instructions Asthma Order for Nebulizer with tubbing [facility] ?? Unchanged Durable Medical Equipment for [...] mouth) Every day COPD exacerbation Pharmacy Information [facility] #[id number]: [address] [phone] Education Materials Hyponatremia Hyponatremia is when the [...] Follow these instructions at home: ? Take nzzv-iea-mapuify and prescription medicines only as told by [...] provider. Document Revised: 04/17/2022 Document Reviewed: 04/17/2022 [employer] Patient Education ?? 2022 [employer] Hypokalemia Hypokalemia means that the amount [...] such as yogurt. General instructions ? Take uwjy-jnv-hyrvxbh and prescription medicines only as told by [...] provider. Document Revised: 06/21/2022 Document Reviewed: 06/21/2022 [employer] Patient Education ?? 2022 [employer]. Viral Gastroenteritis, Adult Viral gastroenteritis is also [...] than 2 years. ? Living in a fci. ? Going on cruise ships. What are [...] cannot use soap and water, use hand cafe operator. ? Make sure that all people in your home wash their hands well and often. ? Take ghqn-doc-lekkcie and prescription medicines only as told by [...] cannot use soap and water, use hand cafe operator. This information is not intended to replace advice given to you by your health care provider. Make sure you discuss any questions you have with your health care provider. Document Revised: 08/06/2022 Document Reviewed: 08/06/2022 [employer] Patient Education ?? 2022 [employer] Tests Performed Medications and Immunizations Administered [...] Lymph Auto 18.1 % 10/07/2024 21:10 EST Payette Auto 9.0 % 10/07/2024 21:10 EST Eos, [...] EST NT-proBNP 39 pg/mL 10/07/2024 21:10 EST Patient/Skeins Yarn Examiner Signature Patient Name:ANGELITO TELLEZ I have received this information and my questions have been answered. Patient/Skeins Yarn Examiner Name: Patient/Skeins Yarn Examiner Signature: Relationship to Patient: Witness Name/Signature: Date: [...] Position: Physician Member Role: Informed Provider Address: [address] [place] [address] [place] Telecom: Name: Denise Contreras Position: Ambulatory - RN/BOOKING CLERK ([place]) Member Role: Machine Stitcher Name: Dylan Cummings MD Position: No Access Member Role: Well Drill Operator Rotary Drill Address: [facility] [address] [facility] [place], [place] [address] Telecom: Care Team Related Persons Name: ZOFIA TELLEZ Name: JUAN PATRICK Insurance Providers Guarantor name: ANGELITO TELLEZ Health Plan Information #: 1 Payer: MEDICARE B [employer] Member Number: [id number] Policy Number: NA Group Number: NA Health Plan Information #: 2 Payer: [facility] [employer] Member Number: [id number] Policy Number: NA Group Number: NA
--- OUTSIDE RECORDS SUMMARY | 2024-10-26 16:31 | XMS_ITS | Encounter Summary ---
Author Organization [facility] Address [facility] [place] [address] Care Team Providers Care Winch Derrick Operator Name Role Phone Brittany Wynne MD Primary Care Provider + Encounter Details Date Type Department Care Team (Late st Contact Info) Description 11/08/2023 Interpretation Only Radiology Library at [facility] [place] [phone] Jacqui Logan MD [address] [place], [place] [id number] Social History Tobacco Use Types Packs/Day Years [...] place to sleep or slept in a [place] facility (including now)? No 11/06/2021 Sex and Gender Information Value Date Recorded Sex Assigned at Female 10/16/2021 7:15 PM EST Gender Identity Female 10/16/2021 7:15 PM EST Sexual Orientation Straight 10/16/2021 7: 15 PM EST documented as of this encounter Plan of Treatment Upcoming Encounters Date Type Department Care Team (Late st Contact Info) Description 01/11/2025 1:00 PM EDT Office Visit Radiation Oncology at [address] [phone] Misty Llanos MD [facility] [place] [address] 08/23/2025 1:10 PM EST Appointment Mammography/[place] [phone] Jody Tam APRN [facility] [place] [address] 08/23/2025 2:10 PM EST Office [place] [phone] Jody Tam APRN [facility] [place] [place] [address] documented as of this encounter Procedures Procedure Name Priority Date/Time Associated Diagnosis Comments FILM LIBRARY STORAGE ONLY CT CHEST Routine 11/08/2023 12:00 AM EST documented in this encounter Results * Film Library- Storage Only CT Chest (11/08/2023 12:00 AM EST) 05/27/2024 11:1 5 AM EDT Narrative RAD - 05/27/2024 11:16 AM EDT This exam is auto-finalizing. It's purpose is for storage only. Jacqui Logan MD IMG FILM LIBRARY ORD ERABLES [place], [place] documented in this encounter Visit Diagnoses Not on filedocumented in this encounter Care Teams Winch Derrick Operator Relationship Specialty Start Date End Date Brittany Wynne MD [address] [place] [address] [place] [address] PCP - General Family Medicine 10/23/21 documented as of this encounter
--- OUTSIDE RECORDS SUMMARY | 2024-10-26 16:31 | XMS_ITS | Encounter Summary ---
Author Organization [facility] Address [facility] [place] [address] Care Team Providers Care Stone Driller Name Role Phone Brittany Wynne MD Primary Care Provider + Encounter Details Date Type Department Care Team (Late st Contact Info) Description 11/08/2023 Ancillary Procedure Radiology Library at [facility], [place] [phone] Jacqui Logan MD [address] [place], [place] [phone] Social History Tobacco Use Types Packs/Day Years [...] place to sleep or slept in a intermediate (including now)? No 11/06/2021 Sex and Gender Information Value Date Recorded Sex Assigned at Female 10/16/2021 7:15 PM EST Gender Identity Female 10/16/2021 7:15 PM EST Sexual Orientation Straight 10/16/2021 7: 15 PM EST documented as of this encounter Plan of Treatment Upcoming Encounters Date Type Department Care Team (Late st Contact Info) Description 01/11/2025 1:00 PM EDT Office Visit Radiation Oncology at [address] [phone] Misty Llanos MD [facility] [place] [address] 08/23/2025 1:10 PM EST Appointment Mammography/[place] [phone] Jody Tam APRN [facility] [place] [address] 08/23/2025 2:10 PM EST Office [place] [phone] Jody Tam APRN [facility] [place] [address] documented as of this encounter Procedures Procedure [...] Logan MD IMG FILM LIBRARY ORD ERABLES [place] documented in this encounter Visit Diagnoses Not on filedocumented in this encounter Care Teams Stone Driller Relationship Specialty Start Date End Date Brittany Wynne MD [address] [place] [address] [place] [address] PCP - General Family Medicine 10/23/21 documented as of this encounter
--- OUTSIDE RECORDS SUMMARY | 2024-10-26 16:31 | XMS_ITS | Encounter Summary ---
Author Organization [facility] [place] [address] Care Team Providers Care Food Safety Field Specialist Name Role Phone Brittany Wynne MD Primary Care Provider + Encounter Details Date Type Department Care Team (Latest Contact Info) Description 08/19/2024 12:26 PM EDT - 08/19/2024 11:59 PM EDT Hospital Encounter Mammography/[place] [address] Helga Quezada APRN [facility] [place] [address] Malignant neoplasm of right breast in female, estrogen receptor positive, unspecified site of breast; Breast cancer screening by mammogram Discharge Disposition: Home Social History Tobacco Use [...] place to sleep or slept in a custodial (including now)? No 11/06/2021 Sex and Gender [...] PM EDT Office Visit Radiation Oncology at [address] [phone] Misty Llanos MD [facility] [place] [address] 08/23/2025 1:10 PM EST Appointment Mammography/[place] [address] Jody Tam APRN [facility] [place] [address] 08/23/2025 2:10 PM EST Office [place] [phone] Jody Tam APRN [facility] DR GENERAL SURGERY [place] [phone] documented as of this encounter Procedures Procedure Name Priority Date/Time Associated Diagnosis Comments MAMMO SCREENING CAD AND EMERY BILATERAL Routine 08/19/2024 12:58 PM EDT Malignant neoplasm of right breast in female, estrogen receptor positive, unspecified site of breast Breast cancer screening by mammogram documented in this encounter Results * Mammo Screening Cad and Emery Bilateral (08/19/2024 12:58 PM EDT) Anatomical Region Laterality Modality Breast Bilateral Mammography Impressions 08/19/2024 3:07 PM EDT : No mammographic evidence of malignancy. RECOMMENDATION: Regular screening mammograms starting at age 40 reduce the risk of from breast cancer. Individuals should discuss the risks and benefits with their provider to determine their preferred breast cancer screening schedule, and at what age screening should stop. Individuals should report any breast changes to a health care provider right away. Some individuals, because of their family history, a genetic tendency, or other factors, should consider being screened with annual breast MRI as well as with mammograms. Screening mammography may not detect 10-15% of breast cancers. A result letter has been sent to this patient by the [facility]. BIRADS CATEGORY 1: NEGATIVE [[id number]] Electronically signed by: BRIGETTE PARISH MD [facility] at [address] [address] Your breast imaging exam done on: ??08/19/24 Narrative 08/19/2024 3:07 PM EDT BILATERAL MAMMOGRAPHY REASON FOR EXAM: Screening TECHNIQUE: CC and MLO views were obtained of each breast using standard 2-D mammography as well as 3-D tomosynthesis. Computer aided detection was used. This is compared with prior images. FINDINGS: There are scattered areas of fibroglandular density. There are no suspicious microcalcifications, masses, or areas of distortion. The pattern is stable. Helga Quezada APRN IMG MAMMO ORDERABL ES documented in this encounter Visit Diagnoses Diagnosis Malignant neoplasm of right breast in female, estrogen receptor positive, unspecified site of breast Breast cancer screening by mammogram documented in this encounter Care Teams Food Safety Field Specialist Relationship Specialty Start Date End Date Brittany Wynne MD [address] [place] [address] [place] [address] PCP - General Family Medicine 10/23/21 documented as of this encounter
--- OUTSIDE RECORDS SUMMARY | 2024-10-26 16:31 | XMS_ITS | Encounter Summary ---
Author Organization [facility] Address [facility] [place] [address] Care Team Providers Care Emergency Department Director Name Role Phone Brittany Wynne MD Primary Care Provider + Encounter Details Date Type Department Care Team (Latest Contact Info) Description 07/16/2024 Multidisciplinary Ca re Committee [place] [address] Meera Burgos, LUMP RECEIVER [facility] [place] [address] Social History Tobacco Use Types Packs/Day Years [...] place to sleep or slept in a senior living (including now)? No 11/06/2021 Sex and Gender Information Value Date Recorded Sex Assigned at Female 10/16/2021 7:15 PM EST Gender Identity Female 10/16/2021 7:15 PM EST Sexual Orientation Straight 10/16/2021 7: 15 PM EST documented as of this encounter Progress Notes * Meera Burgos APRN - 07/16/2024 11:59 PM EDT Images from the original note were not included. ADVANCED LUNG DISEASE MULTIDISCIPLINARY CONFERENCE NOTE BRONCHOSCOPIC LUNG VOLUME REDUCTION PROGRAM INTERVENTIONAL PULMONOLOGY & THORACIC SURGERY Patient Name: Gena Morales Patient : 1965 Patient Date Presented: 07/16/2024 Patient StratX ID#: [id number] Presenting Physician: Meera Burgos APRN Patient's Primary Auto Electrician: Jacqui Logan MD Date of Initial BLVR Evaluation: 04/07/2024 Intended BLVR Target Lobe(s): No targets from StratX Potential Contraindications?: BMI 37.73 Options Discussed: She doesn't have a good target for BLVR on StratX. She would be a potential LVRScandidate to the right. Her BMI would need to be less than 32 to meet criteria for LVRS. She additionally should be evaluated for lung transplant given her age. Recommendation: Continue follow-up with the patient's primary line locator DISCLAIMER: The patient was discussed and the multidisciplinary advanced lung disease committee made recommendations but it is ultimately up to the treatment provider(s) and the patient to determine the patient???s care. Meera Burgos APRN Interventional Pulmonology Section of Pulmonary & Critical Care Pager: [phone] I called and spoke with Mr. Morales on the above recommendations. She is understanding that she is not a BLVR candidate. She would like to do some more research on LVRS before I place a referral. She is planning to speak with her PCP on weight loss assistance. She is meeting with her line locator next week and will also speak about a referral for lung transplant. She knows to contact me if she would like a referral for weight management or to thoracic surgery for LVRS. Meera Burgos APRN, 07/17/2024, 3:32 PM Interventional Pulmonology Section of Pulmonary & Critical Care Pager: [phone] documented in this encounter Plan of Treatment Upcoming Encounters Date Type Department Care Team (Late st Contact Info) Description 01/11/2025 1:00 PM EDT Office Visit Radiation Oncology at [address] [phone] Misty Llanos MD [facility] [place] [address] 08/23/2025 1:10 PM EST Appointment Mammography/[place] [phone] Jody Tam APRN [facility] [place] [address] 08/23/2025 2:10 PM EST Office Visit [place] [phone] Jody Tam APRN [facility] [place] [address] documented as of this encounter Visit Diagnoses Not on filedocumented in this encounter Care Teams Emergency Department Director Relationship Specialty Start Date End Date Brittany Wynne MD [address] [place] [address] [place] [address] PCP - General Family Medicine 10/23/21 documented as of this encounter
--- OUTSIDE RECORDS SUMMARY | 2024-10-26 16:31 | XMS_ITS | Encounter Summary ---
Author Organization [facility] Address [facility] [place] [address] Care Team Providers Care Investor Relations Manager Name Role Phone Brittany Wynne MD Primary Care Provider + Encounter Details Date Type Department Care Team (Latest Contact Info) Description 12/04/2023 Travel Social History Tobacco Use Types Packs/Day Years [...] place to sleep or slept in a [facility] (including now)? No 11/06/2021 Sex and Gender Information Value Date Recorded Sex Assigned at Female 10/16/2021 7:15 PM EST Gender Identity Female 10/16/2021 7:15 PM EST Sexual Orientation Straight 10/16/2021 7: 15 PM EST documented as of this encounter Plan of Treatment Upcoming Encounters Date Type Department Care Team (Late st Contact Info) Description 01/11/2025 1:00 PM EDT Office Visit Radiation Oncology at [address] [place] [address] [phone] Misty Llanos MD [facility] [place] [address] 08/23/2025 1:10 PM EST Appointment Mammography/[place] [phone] Jody Tam [facility] [place] [address] 08/23/2025 2:10 PM EST Office [place] [phone] Jody Tam [facility] [place] [address] documented as of this encounter Visit Diagnoses Not on filedocumented in this encounter Care Teams Investor Relations Manager Relationship Specialty Start Date End Date Brittany Wynne MD [address] [place] [address] [place] [address] PCP - General Family Medicine 10/23/21 documented as of this encounter
--- OUTSIDE RECORDS SUMMARY | 2024-10-26 16:31 | XMS_ITS | Encounter Summary ---
Author Organization [facility] [place] [address] Care Team Providers Care Head Of Cytogenetics Name Role Phone Brittany Wynne MD Primary Care Provider + Encounter Details Date Type Department Care Team (Late st Contact Info) Description 11/12/2023 Telephone [place] [phone] Suha Fallon Social History Tobacco Use Types Packs/Day Years [...] place to sleep or slept in a long-term (including now)? No 11/06/2021 Sex and Gender [...] EDT Office Visit Radiation Oncology at [address] [phone] Misty Llanos MD [facility] [place] [address] 08/23/2025 1:10 PM EST Appointment Mammography/[place] [address] Jody Tam [facility] [place] [address] 08/23/2025 2:10 PM EST Office [place] [address] Jody Tam APRN [facility] [place] [address] documented as of this encounter Visit Diagnoses Not on filedocumented in this encounter Care Teams Head Of Cytogenetics Relationship Specialty Start Date End Date Brittany Wynne MD [address] [place] [address] [place] [address] PCP - General Family Medicine 10/23/21 documented as of this encounter
--- OUTSIDE RECORDS SUMMARY | 2024-10-26 16:31 | XMS_ITS | Encounter Summary ---
Author Organization [facility] Address [facility] [place] [address] Care Team Providers Care Window Sash Installer Name Role Phone Brittany Wynne MD Primary Care Provider + Reason for Visit * Reason Comments Follow-up Encounter Details Date Type Department Care Team (Late st Contact Info) Description 03/02/2024 2:00 PM EDT Office Visit Radiation Oncology at [address] [phone] Misty Llanos MD [facility] [place] [address] Fungal dermatitis; S/P radiotherapy Social History Tobacco Use Types Packs/Day Years [...] PM EST documented as of this encounter Last Filed Vital Signs Vital Sign Reading Time Taken Comments Blood Pressure 113/84 03/02/2024 2:11 PM EDT Pulse 80 03/02/2024 2:11 PM EDT Temperature 36.7 ??C (98.1 ??F) 03/02/2024 2 :11 PM EDT Respiratory Rate 20 03/02/2024 2:11 PM EDT Oxygen Saturation 100% 03/02/2024 2:1 1 PM EDT oxygen 3 liters Inhaled Oxygen Concentration - - Weight 84.7 kg (186 lb 12.8 oz) 03/02/2024 2:11 PM EDT with shoes Height - - Body Mass Index 37.73 09/05/2022 1:00 PM EST documented in this encounter Patient Instructions * Patient Instructions* Misty Llanos MD - 03/02/2024 2:00 PM EDT Prescription for nystop (nystatin) antifungal powder sent to [facility]. Apply in AM & PM to fold underneath breasts for 2 weeks. Someone will contact you to schedule followup in December. documented in this encounter Progress Notes * Misty Llanos MD - 03/02/2024 2:00 PM EDT Images from the original note were not included. CC: Sched'd followup s/p xrt completion. HPI: Gena is a 58 y/o f who completed xrt to [facility] breast 2 yrs ago (02/19/22) for breast ca, R, IDC, gr 1, ER+VA+, Her2-, s/p lumpectomy & SNB, pT1b pN0. 06/27/22 Dr. Goldman, defers AI now, wanting to focus on lung dz. 06/27/22 Dr. Kendrick, rtc 1 yr w/mmg. 07/09/22 CT ch: 13 mm spiculated nodule CATHERINE. 08/11/22 PET/CT: Metabolically active 11 mm CATHERINE nodule. 09/03/22 CT guided core needle bx CATHERINE lung nodule. Path: Chronic inflammation & scar, w/o malignancy. 09/03/22-09/08/22 hospitalization for acute respiratory distress after lung bx, w/pneumothorax & subq emphysema. 07/19/23 B mmg: Neg 07/19/23 Rosa Quezada APRN Gen Surg, rtc 1 yr w/mmg. 09/17/23 CT ch: Similar appearance of L apical nodules. Subjective: She reports yeast in folds beneath breasts, for which she is using mycostatin cream which doesn't seem to be helping much. She is being considered for valve replacement. Past Medical History: Diagnosis Date Asthma COPD (chronic obstructive pulmonary disease) Malignant neoplasm of right breast in female, estrogen receptor positive 09/29/2021 09/07/21 bx [facility], [place]: ER/VA+/HER2- right breast IDC, low grade No lupus/scleroderma. Past Surgical History: Procedure Laterality Date APPENDECTOMY CHOLECYSTECTOMY CT GUIDED BIOPSY LUNG 09/03/2022 CT Guided Biopsy Lung 09/03/2022 Flako Beltrán, DO [facility] RAD CT SCAN CT GUIDED DRAIN CHEST TUBE/PLEURAL DRAIN 09/03/2022 CT Guided Drain Chest Tube/Pleural Drain 09/03/2022 Flako Beltrán, [facility] RAD CT SCAN IR CHEST TUBE PLACEMENT LEFT 09/03/2022 IR Chest Tube Placement Left 09/03/2022 Walter Yang MD [facility] INTERVENTIONL RAD MAMMO US NEEDLE LOCALIZATION RIGHT Right 11/20/2021 Mammo US Needle Localization Right 11/20/2021 Bettina Chong MD [facility] RAD MAMMOGRAPHY PRO BX/REMV, LYMPH NODE, DEEP AXILL Right 11/20/2021 BIOPSY OR EXCISION OF LYMPH NODE(S), OPEN, DEEP AXILLARY NODE(S) (WRVU 6.43) performed by Dylan Kendrick MD at [facility] OSC PRO INTRAOP SENTINEL LYMPH ID W/DYE INJECTION Right 11/20/2021 INTRAOPERATIVE ID (MAPPING) SENTINEL LYMPH NODE,INCLUDES INJECTION (WRVU 2.5) performed by Dylan Kendrick MD at [facility] OSC PRO MASTECTOMY PARTIAL Right 11/20/2021 MASTECTOMY PARTIAL (WRVU 10.13) performed by Dylan Kendrick MD at [facility] OSC TUBAL LIGATION Your Medications Accurate as of March 02, 2024 2:19 PM. If you have any questions, ask your nurse or doctor. Continued medications, unchanged Dose Details acetaminophen 500 mg tablet Commonly known as: Tylenol Take 1,000 mg by mouth every 6 hours as needed for Pain. 1,000 mg Refills: 0 albuteroL (2.5 mg/3 mL) (0.083 %) Solution for Nebulization Commonly known as: ProventilNateolin Take 3 mLs by nebulization every 4 hours as needed for Wheezing or Shortness of Breath. 3 mL Refills: 0 Breztri Aerosphere 160-9-4.8 mcg/actuation inhaler (HFA) Inhale 2 puffs into the lungs 2 times daily. Generic drug: zuulnyoffg-fckzchvwdnfgdb-afrrzlgeiq 2 puff Refills: 0 guaiFENesin ER 600 mg ER 12 hr tablet Commonly known as: Mucinex Take 1,200 mg by mouth 2 times daily as needed for Congestion. 1,200 mg Refills: 0 ibuprofen 200 mg tablet Commonly known as: Advil Take 200 mg by mouth every 6 hours as needed for Pain. 200 mg Refills: 0 ipratropium-albuteroL 0.5 mg-3 mg(2.5 mg base)/3 mL Solution for Nebulization Commonly known as: Duoneb Take 3 mLs by nebulization every 4 hours as needed. 3 mL Refills: 0 loratadine 10 mg Tablet Commonly known as: Claritin Take 10 mg by mouth daily. 10 mg Refills: 0 LORazepam 0.5 mg tablet Commonly known as: Ativan Take 0.5 mg by mouth. Take 0.5 tablet prn 0.5 mg Refills: 0 miconazole 2 % Cream Commonly known as: Micotin Apply topically 2 times daily. APPLY TOPICALLY TO THE AFFECTED AREA TWICE DAILY Refills: 0 montelukast 10 mg tablet Commonly known as: Singulair Take 10 mg by mouth nightly. 10 mg Refills: 0 roflumilast 500 mcg tablet Commonly known as: Daliresp Take 500 mcg by mouth daily. 500 mcg Refills: 0 Tezspire 210 mg/1.91 mL (110 mg/mL) Pen Injector 0 Refill(s) Generic drug: tezepelumab-ekko Refills: 0 Zoloft 25 mg tablet Take 25 mg by mouth. Generic drug: sertraline 25 mg Refills: 0 Physical Exam Constitutional: General: She is not in acute distress. Comments: BP 113/84 (Patient Position: Sitting) Pulse 80 Temp 36.7 ??C (98.1 ??F) (Bladder) Resp 20 Wt 84.7 kg (186 lb 12.8 oz) Comment: with shoes SpO2 100% Comment: oxygen 3 liters BMI 37.73 kg/m?? HENT: Head: Normocephalic. Eyes: General: No scleral icterus. Right eye: No discharge. Left eye: No discharge. Extraocular Movements: Extraocular movements intact. Conjunctiva/sclera: Conjunctivae normal. Pulmonary: Effort: Pulmonary effort is normal. No respiratory distress. Breath sounds: No stridor. Comments: Receiving O2 via n/c. Chest: Breasts: Right: Inverted nipple (entire life) and skin change (moist erythema in inframammary fold consistent w/fungal overgrowth) present. No mass, nipple discharge or tenderness. Left: Inverted nipple (entire life) present. No mass, nipple discharge, skin change (moist erythemainframammary fold consistent w/fungal overgrowth) or tenderness. Abdominal: General: There is no distension. Palpations: Abdomen is soft. There is no mass. Tenderness: There is no abdominal tenderness. There is no guarding or rebound. Musculoskeletal: General: No swelling or tenderness. Normal range of motion. Cervical back: Normal range of motion and neck supple. No tenderness. Right lower leg: No edema. Left lower leg: No edema. Lymphadenopathy: Head: Right side of head: No submental, submandibular, preauricular, posterior auricular or occipital adenopathy. Left side of head: No submental, submandibular, preauricular, posterior auricular or occipital adenopathy. Cervical: No cervical adenopathy. Upper Body: Right upper body: No supraclavicular or axillary adenopathy. Left upper body: No supraclavicular or axillary adenopathy. Skin: General: Skin is warm and dry. Neurological: Mental Status: She is alert and oriented to person, place, and time. Coordination: Coordination normal. Gait: Gait normal. Psychiatric: Mood and Affect: Mood normal. Behavior: Behavior normal. Thought Content: Thought content normal. Judgment: Judgment normal. A: Fungal overgrowth B inframammary folds. P: Rx for nystop powder for B inframammary folds. Rtc December 2024. Gen Surg w/mmg Sept. I certify spending at least 15 mins in providing care to this patient today as reflected by the following activities: - review of patient's medical record in the chart, including interpretation of imaging, laboratory and pathologic studies referenced above - documenting the outcome of today's visit as above documented in this encounter Plan of Treatment Upcoming Encounters Date Type Department Care Team (Late st Contact Info) Description 01/11/2025 1:00 PM EDT Office Visit Radiation Oncology at [address] [phone] Misty Llanos MD [facility] [place] [address] 08/23/2025 1:10 PM EST Appointment Mammography/[place] [address] Jody Tam APRN [facility] [place] [address] 08/23/2025 2:10 PM EST Office [place] [address] Jody Tam APRN [facility] [place] [address] documented as of this encounter Visit Diagnoses Diagnosis Fungal dermatitis Dermatomycosis, unspecified S/P radiotherapy Convalescence following radiotherapy documented in this encounter Care Teams Window Sash Installer Relationship Specialty Start Date End Date Brittany Wynne MD [address] [place] [address] [place] [address] PCP - General Family Medicine 10/23/21 documented as of this encounter
--- OUTSIDE RECORDS SUMMARY | 2024-10-26 16:31 | XMS_ITS | Encounter Summary ---
Author Organization [facility] Address [facility] [place] [address] Care Team Providers Care Visual Education Director Name Role Phone Brittany Wynne MD Primary Care Provider + Encounter Details Date Type Department Care Team (Latest Contact Info) Description 08/12/2024 Travel Social History Tobacco Use Types Packs/Day [...] place to sleep or slept in a group home (including now)? No 11/06/2021 Sex and Gender Information Value Date Recorded Sex Assigned at Female 10/16/2021 7:15 PM EST Gender Identity Female 10/16/2021 7:15 PM EST Sexual Orientation Straight 10/16/2021 7: 15 PM EST documented as of this encounter Plan of Treatment Upcoming Encounters Date Type Department Care Team (Late st Contact Info) Description 01/11/2025 1:00 PM EDT Office Visit Radiation Oncology at [address] [phone] Misty Llanos MD [facility] [place] [address] 08/23/2025 1:10 PM EST Appointment Mammography/[place] [phone] Jody Tam [facility] [place] [address] 08/23/2025 2:10 PM EST Office Visit [place] [phone] Jody Tam [facility] [place] [address] documented as of this encounter Visit Diagnoses Not on filedocumented in this encounter Care Teams Visual Education Director Relationship Specialty Start Date End Date Brittany Wynne MD [address] [place] [address] [place] [address] PCP - General Family Medicine 10/23/21 documented as of this encounter
--- OUTSIDE RECORDS SUMMARY | 2024-10-26 16:31 | XMS_ITS | Encounter Summary ---
Author Organization [facility] Address [facility] [place] [address] Care Team Providers Care It Senior Software Engineer Java Name Role Phone Brittany Wynne MD Primary Care Provider + Encounter Details Date Type Department Care Team (Latest Contact Info) Description 04/08/2024 Travel Social History Tobacco Use Types Packs/Day [...] place to sleep or slept in a residential (including now)? No 11/06/2021 Sex and Gender [...] EDT Office Visit Radiation Oncology at [address] [phone] Misty Llanos MD [facility] [place] [address] 08/23/2025 1:10 PM EST Appointment Mammography/[place] [phone] Jody Tam [facility] [place] [address] 08/23/2025 2:10 PM EST Office [place] [phone] Jody Tam [facility] [place] [address] documented as of this encounter Visit Diagnoses Not on filedocumented in this encounter Care Teams It Senior Software Engineer Java Relationship Specialty Start Date End Date Brittany Wynne MD [address] [place] [address] [place] [address] PCP - General Family Medicine 10/23/21 documented as of this encounter
--- OUTSIDE RECORDS SUMMARY | 2024-10-26 16:31 | XMS_ITS | Encounter Summary ---
Author Organization [facility] Address [facility] [place] [address] Care Team Providers Care Manager Quality Name Role Phone Brittany Wynne MD Primary Care Provider + Encounter Details Date Type Department Care Team (Latest Contact Info) Description 03/02/2024 Travel Social History Tobacco Use Types Packs/Day [...] to sleep or slept in a senior care (including now)? No 11/06/2021 Sex and Gender Information Value Date Recorded Sex Assigned at Female 10/16/2021 7:15 PM EST Gender Identity Female 10/16/2021 7:15 PM EST Sexual Orientation Straight 10/16/2021 7: 15 PM EST documented as of this encounter Plan of Treatment Upcoming Encounters Date Type Department Care Team (Late st Contact Info) Description 01/11/2025 1:00 PM EDT Office Visit Radiation Oncology at [address] [phone] Misty Llanos MD [facility] [place] [address] 08/23/2025 1:10 PM EST Appointment Mammography/[place] [phone] Jody Tam [facility] [address] 08/23/2025 2:10 PM EST Office [place] [phone] Jody Tam [facility] [place] [address] documented as of this encounter Visit Diagnoses Not on filedocumented in this encounter Care Teams Manager Quality Relationship Specialty Start Date End Date Brittany Wynne MD [address] [place] [address] [place] [address] PCP - General Family Medicine 10/23/21 documented as of this encounter
--- OUTSIDE RECORDS SUMMARY | 2024-10-26 16:31 | XMS_ITS | Continuity of Care Document ---
Author Organization [facility] Address [address] [place] [address] Care Team Providers Care Blood Bank Coordinator Name Role Phone Alicia Castorena Primary Care Physician Denise Contreras Unavailable Unavailable Encounter [id number] Date(s): 11/08/23 - 11/08/23 [facility] [address] [place] [address] Discharge Disposition: Home or Self Care Attending [...] Comment: patient staetdt the vaccine was through [facility] 2Result Comment: tolerated well 3Result Comment: Tolerated well 4Result Comment: Tolerated well Medications Albuterol (Eqv-Ventolin HFA) 90 mcg/inh inhalation aerosol See Instructions, INHALE 2 PUFFS BY MOUTH EVERY 4 HOURS NEEDED, # 18 g, 0 Refill(s), Pharmacy: [facility] #[id number], 146, cm, 07/26/22 7:23:00 EDT, Height/Length Dosing, [...] BID, # 14 cap, 0 Refill(s), Pharmacy: [facility] #[id number], 146, cm, 08/09/23 12:12:00 EDT, Height/Length Dosing, [...] NEEDED, # 180 mL, 11 Refill(s), Pharmacy: [facility] #[id number], 146, cm, 07/26/22 7:23:00 EDT, Height/Length Dosing, 67, kg, 07/26/22 7:23:00 EDT, Weight Dosing Start Date: 04/01/23 Status: Ordered loratadine 10 mg oral tablet 1 tab, Oral, Daily, 0 Refill(s) Start Date: 03/13/22 Status: Ordered LORazepam 0.5 mg oral tablet See Instructions, 1 tablet twice daily as needed, # 60 tab, 0 Refill(s), Pharmacy: [facility] #[id number], 146, cm, 08/09/23 12:12:00 EDT, Height/Length Dosing, 80.2, kg, 08/09/23 12:12:00 EDT, Weight Dosing Start Date: 10/24/23 Status: Ordered montelukast 10 mg oral tablet See Instructions, TAKE 1 TABLET BY MOUTH EVERY DAY, # 90 tab, 3 Refill(s), Pharmacy: [id number] Start Date: 06/12/22 Status: Ordered Nebulizer Machine with tubbing Nebulizer Machine with tubbing, Order for Nebulizer with tubbing [employer], Supply, See instructions, # 1 EA, 0 [...] days, # 30 tab, 0 Refill(s), Pharmacy: [facility] #[id number], 146, cm, 08/09/23 12:12:00 EDT, Height/Length Dosing, 80.2, kg, 08/09/23 12:12:00 EDT, Weight Dosing Start Date: 10/10/23 Status: Ordered sertraline 25 mg oral tablet 1 tab, Oral, Daily, # 90 tab, 0 Refill(s), Pharmacy: [id number], 146, cm, 08/09/23 12:12:00 [...] Physician Member Role: Informed Provider Address: Address: [address] Name: Denise Contreras Position: Ambulatory - RN/NOZZLE OPERATOR ([place]) Member Role: Chief Nursing Officer Name: Dylan Cummings MD Position: No Access Member Role: Wide Area Network Administrator Address: Address: [address] [place] [address] Care Team Related Persons Name: ZOFIA TELLEZ Name: JUAN PATRICK Address: Home [address] [place] [address], [phone]
--- OUTSIDE RECORDS SUMMARY | 2024-10-26 16:31 | XMS_ITS | Encounter Summary ---
Author Organization [facility] Address [facility] [place] [address] Care Team Providers Care Instructor Kindergarten Name Role Phone Brittany Wynne MD Primary Care Provider + Encounter Details Date Type Department Care Team (Latest Contact Info) Description 08/19/2024 Travel Social History Tobacco Use Types Packs/Day [...] place to sleep or slept in a snf (including now)? No 11/06/2021 Sex and Gender Information Value Date Recorded Sex Assigned at Female 10/16/2021 7:15 PM EST Gender Identity Female 10/16/2021 7:15 PM EST Sexual Orientation Straight 10/16/2021 7: 15 PM EST documented as of this encounter Plan of Treatment Upcoming Encounters Date Type Department Care Team (Late st Contact Info) Description 01/11/2025 1:00 PM EDT Office Visit Radiation Oncology at [address] [phone] Misty Llanos MD [facility] [place] [address] 08/23/2025 1:10 PM EST Appointment Mammography/[place] [phone] Jody Tam [facility] [place] [address] 08/23/2025 2:10 PM EST Office Visit [place] [phone] Jody Tam [facility] [place] [address] documented as of this encounter Visit Diagnoses Not on filedocumented in this encounter Care Teams Instructor Kindergarten Relationship Specialty Start Date End Date Brittany Wynne MD [address] [place] [address] [place] [address] PCP - General Family Medicine 10/23/21 documented as of this encounter
--- OUTSIDE RECORDS SUMMARY | 2024-10-26 16:31 | XMS_ITS | Encounter Summary ---
Author Organization [facility] [place] [address] Care Team Providers Care Cone Classifier Tender Name Role Phone Brittany Wynne MD Primary Care Provider + Encounter Details Date Type Department Care Team (Late st Contact Info) Description 11/12/2023 [place] [phone] Suha Fallon Social History Tobacco Use Types [...] PM EDT Office Visit Radiation Oncology at [address] [phone] Misty Llanos MD [facility] [place] [address] 08/23/2025 1:10 PM EST Appointment Mammography/[place] [phone] Jody Tam PASTE MAKER [facility] [place] [address] 08/23/2025 2:10 PM EST Office [place] [address] Jody Tam APRN [facility] [place] [address] documented as of this encounter Visit Diagnoses Not on filedocumented in this encounter Care Teams Cone Classifier Tender Relationship Specialty Start Date End Date Brittany Wynne MD [address] [place] [address] [place] [address] PCP - General Family Medicine 10/23/21 documented as of this encounter
--- OUTSIDE RECORDS SUMMARY | 2024-10-26 16:31 | XMS_ITS | Encounter Summary ---
[place] [address] Care Team Providers Care Field Professional Name Role Phone Brittany Wynne MD Primary Care Provider + Reason for Visit * Reason Onset Date Comments Other 04/09/2024 Referral for manfred e PT Encounter Details Date Type Department Care Team (Late st Contact Info) Description 04/09/2024 [place] [phone] Kira Champion, RN Other (Referral for home PT) Social History Tobacco Use Types Packs/Day Years [...] place to sleep or slept in a fdc (including now)? No 11/06/2021 Sex and Gender Information Value Date Recorded Sex Assigned at Female 10/16/2021 7:15 PM EST Gender Identity Female 10/16/2021 7:15 PM EST Sexual Orientation Straight 10/16/2021 7: 15 PM EST documented as of this encounter Miscellaneous Notes * Telephone Encounter - Kira Champion RN - 04/09/2024 3:24 PM EDT Faxed referral for home PT along with visit notes, demographics, med and allergy list, [phone]. JASON Lockhrat, RN [facility] Pager: [phone] documented in this encounter Plan of Treatment Upcoming Encounters Date Type Department Care Team (Late st Contact Info) Description 01/11/2025 1:00 PM EDT Office Visit Radiation Oncology at [address] [address] Misty Llanos MD [facility] [place] [address] 08/23/2025 1:10 PM EST Appointment Mammography/[place] [address] Jody Tam APRN [facility] [place] [address] 08/23/2025 2:10 PM EST Office [place] [address] Jody Tam APRN [facility] [place] [address] documented as of this encounter Visit Diagnoses Not on filedocumented in this encounter Care Teams Field Professional Relationship Specialty Start Date End Date Brittany Wynne MD [address] [place] [address] [place] [address] PCP - General Family Medicine 10/23/21 documented as of this encounter
--- OUTSIDE RECORDS SUMMARY | 2024-10-26 16:31 | XMS_ITS | Clinical Summary ---
Author Organization [facility] Address [facility] [place] [address] Care Team Providers Care Supply Cataloguer Name Role Phone Brittany Wynne MD Primary Care Provider + Allergies Active Allergy Reactions Criticality Noted Date Comments Amoxicillin 10/26/2021 Animal Dander 05/14/2023 Cigarette Smoke 05/14/2023 Codeine Itching 05/14/2023 House Dust 05/14/2023 Sulfa (Sulfonamide Antibiotics) 04/21 [place] Pollen 05/14/2023 Medications Medication Sig Dispensed Refills Start Date End Date Status montelukast (Singulair) 10 mg Tablet Take 10 mg by mouth nightly. 09/06/2021 Active ipratropium-albutero L (Duoneb) 0.5 mg-3 mg(2.5 mg base)/3 mL Solution for Nebulization Take 3 mLs by nebulization every 4 hours as needed. 10/07/2021 Active loratadine (Claritin) 10 mg Tablet Take 10 mg by mouth daily. Active acetaminophen (Tylenol) 500 mg Tablet Take 1,000 mg by mouth every 6 hours as needed for Pain. Active ibuprofen (Advil) 200 mg Tablet Take 200 mg by mouth every 6 hours as needed for Pain. Active guaiFENesin ER (Mucinex) 600 mg Tablet Extended Release 12hr Take 1,200 mg by mouth 2 times daily as needed for Congestion. Active Breztri Aerosphere 160-9-4.8 mcg/actuation HFA Aerosol Inhaler Inhale 2 puffs into the lungs 2 times daily. 08/09/2022 Active albuteroL (Proventil, Ventolin) (2.5 mg/3 mL) (0.083 %) Solution for Nebulization Take 3 mLs by nebulization every 4 hours as needed for Wheezing or Shortness of Breath. 09/04/2022 Active Zoloft 25 mg tablet Take 25 mg by mouth daily. 03/13/2023 Active LORazepam (Ativan) 0.5 mg tablet Take 0.5 mg by mouth. Take 0.5 tablet prn Active Tezspire 210 mg/1.91 mL (110 mg/mL) Pen Injector Inject into the muscle every 30 days. 10/08/2023 Active miconazole (Micotin) 2 % Cream Apply topically 2 times daily. APPLY TOPICALLY TO THE AFFECTED AREA TWICE DAILY 12/18/2023 Active roflumilast (Daliresp) 500 mcg tablet Take 500 mcg by mouth daily. Active nystatin (MYCOSTATIN) 100,000 unit/gram PowderIndications:Fu ngal dermatitis Apply topically 2 times daily. Use for 2 weeks. 30 g 1 03/02/2024 Active triamcinolone (Nasacort/Nasacort OTC) 55 mcg nasal inhaler 1 spray daily. 12/27/2023 Active predniSONE (Deltasone) 20 mg tablet Take 20 mg by mouth 2 times daily. 04/06/2024 Active Active Problems Problem Noted Date Diagnosed Date Allergic rhinitis 04/07/2024 Anxiety 04/07/2024 Asthma 04/07/2024 Cough 04/07/2024 Nicotine dependence 04/07/2024 Pneumothorax after biopsy 09/03/2022 Malignant neoplasm of lower- outer quadrant of right breast of female, estrogen receptor positive 09/29/2021 Overview (06/27/2022): 09/07/21 bx [facility], [place]: [place]HER2- right breast IDC, low grade, luminal A features Screening mammogram detected No prior call backs or biopsies 1.1 cm suspicious mass in LOQ, bx 09/07/21 at [facility] complicated by rib trauma and pain. Diagnostic images with calcifications at 0600, stable compared to prior MRI without other abnormalities Right lumpectomy IDCA grade 1 8.5 mm + perineural invasion, 0/5 LN + [id number] Stage IA RT completed 02/19/22 Dexa 06/27/22 Chronic obstructive lung disease 07/06/2019 Encounters Date Type Department Care Team Description 08/19/2024 1:40 PM EDT Office [place] [phone] Helga Quezada APRN Huntley-Smith, Carol A, APRN Encounter for follow-up surveillance of breast cancer; Malignant neoplasm of lower-outer quadrant of right breast of female, estrogen receptor positive; Breast cancer screening by mammogram 08/19/2024 12:26 PM EDT - 08/19/2024 11:59 PM EDT Hospital Encounter Mammography/[place] [phone] Helga Quezada APRN Malignant neoplasm of right breast in female, estrogen receptor positive, unspecified site of breast; Breast cancer screening by mammogram Discharge Disposition: Home 08/19/2024 Travel 08/12/2024 Travel from Last 3 Months Immunizations Name Administration Dates Next Due Influenza Quadrivalent, Preservative Free 2021 Family History Medical History Relation Comments Breast Cancer Neg Hx Social History Tobacco Use Types Packs/Day Years [...] place to sleep or slept in a half-way (including now)? No 11/06/2021 Sex and Gender Information Value Date Recorded Sex Assigned at Female 10/16/2021 7:15 PM EST Gender Identity Female 10/16/2021 7:15 PM EST Sexual Orientation Straight 10/16/2021 7: 15 PM EST Last Filed Vital Signs Vital Sign Reading Time Taken Comments Blood Pressure 135/88 04/08/2024 7:59 AM EDT Pulse 85 04/08/2024 7:59 AM EDT Temperature 36.1 ??C (96.9 ??F) 04/08/2024 7 :59 AM EDT Respiratory Rate 18 04/08/2024 7:59 AM EDT Oxygen Saturation 100% 04/08/2024 7:5 9 AM EDT O2 @ 3L/min via nc Inhaled Oxygen Concentration - - Weight 84.7 kg (186 lb 12.8 oz) 03/02/2024 2:11 PM EDT with shoes Height 149.9 cm (4' 11) 04/08/2024 7:5 9 AM EDT Body Mass Index 37.73 09/05/2022 1:00 PM EST Plan of Treatment Upcoming Encounters Date Type Department Care Team (Late st Contact Info) Description 01/11/2025 1:00 PM EDT Office Visit Radiation Oncology at [address] [phone] Misty Llanos MD [facility] [place] [address] 08/23/2025 1:10 PM EST Appointment Mammography/[place] [address] Jody Tam, FACILITY SUPERVISOR [facility] [place] [address] 08/23/2025 2:10 PM EST Office Visit General Surgery at [facility] [place] [address] Jody Tam, BETTY [facility] [place] [address] Health Maintenance Due Date Last Done Comments CT Colonography 1963 Colonoscopy 1963 Colorectal Cancer Screening 1963 FIT DNA 1963 FIT 1963 Sigmoidoscopy (10 year) with FIT yearly 1965 Sigmoidoscopy 1965 HIV screen 1981 Hepatitis C Screening 1981 Lipid Screening 1981 Pneumococcal Vaccine: At-Ris k 5-64yrs (1 of 2 - PCV) 1982 Tetanus/Diphtheria/Pertussis Vaccines (1 - Tdap) 1982 HPV test 1993 PAP Smear 1993 Breast Cancer Share Decision Needed 2003 Zoster vaccine (1 of 2) 2013 Advance Directive 2018 RSV Vaccine (1 - Risk 60-74 years 1-dose series) 2023 Covid-19 Vaccine (2 - 2023-2 5 season) 2024 06/16/2021 Influenza (Flu) vaccine (1 o f 1 - Influenza standard series) 06/21/2024 09/08/2022 Diabetes Screening (HgbA1C o r Glucose) 09/08/2025 09/08/2022, 09/07/2022, 09/06/2022, Additional history exists Breast Cancer screening 08/19/2026 08/19/20 24, 07/19/2023, 06/27/2022 Procedures Procedure Name Priority Date/Time Associated Diagnosis Comments MAMMO SCREENING CAD AND EMERY BILATERAL Routine 08/19/2024 12:58 PM EDT Malignant neoplasm of right breast in female, estrogen receptor positive, unspecified site of breast Breast cancer screening by mammogram BASIC METABOLIC PANEL Routine 09/08/2022 12:40 AM EST from Last 3 Months or Most Recently Relevant to Health Maintenance Results * Mammo Screening Cad and Emery [...] [facility] BIRADS CATEGORY 1: NEGATIVE [[id number]] Electronically signed by: BRIGETTE PARISH MD [facility] at [address] [phone] Your breast imaging exam done on: ??08/19/24 [...] Helga Quezada APRN IMG MAMMO ORDERABL ES * (ABNORMAL) Basic Metabolic Panel (non-fasting) (09/08/2022 12:40 AM EST) Glucose 93 65 - 199 mg/dL [facility] Comment:Diabetes: >=200 mg/d L plus symptoms Blood Urea Nitrogen 16 8 - 18 mg/dL [facility] Creatinine 0.65(L) 0.70 - 1.20 mg/dL [facility] Sodium 138 135 - 145 mmol/L [facility] Potassium 4.3 3.5 - 5.0 mmol/L [facility] Comment: Please note: ??Patients with WBC >100,000 may have falsely elevated Potassium levels. ??For accurate Potassium quantification in these patients send serum separator tube (gold top) for subsequent determinations. ??Contact the Clinical Chemistry Laboratory if there are any questions. Chloride 104 98 - 107 mmol/L [facility] Carbon Dioxide 23 22 - 31 mmol/L [facility] Anion Gap 11 5 - 15 mmol/L [facility] Calcium 8.8 8.5 - 10.5 mg/dL [facility] Est Glomerular Filtration Rate 102 >=60 mL/min/1. 73 m?? [facility] Comment: This patient's estimated GFR was calculated using the 2020 CKD-EPI equation. The estimated GFR can vary from the measured GFR by up to 30% in the absence of rapidly changing kidney function. Assessment of the estimated GFR is not appropriate when creatinine concentrations are rapidly changing. For clinical situations in which a more precise estimate of GFR is necessary, consider alternative methods of GFR estimation such as a 24-hour urine creatinine clearance. Assignment of CKD stage 1-5 for patients with an eGFR near the transition point between stages may be based on clinical assessment of muscle mass and symptoms in addition to eGFR. Blood 09/08/2022 12:4 0 AM EST 09/08/2022 12:58 AM EST Narrative Resulting Agency Comment Spec In Lab Kevin Ralph MD CHEMISTRY ORDERABL ES [facility] [place] [address] from Last 3 Months or Most Recently Relevant to Health Maintenance Advance Directives * Do NOT Attempt CPR - Inpatient (Latest Code Status on File) Date Activated Date Inactivated Comments 09/05/2022 7:08 PM 09/08/2022 6:26 PM Question Answer Comments Code Status decision made by: Patient Content of discussion: Patient declines compressions but WOULD agree to time limited trial of intubation Independent of Code Status d ecision, are there any PRE Arrest limitations (Intubation, Pressors, Cardioversion / Pacing, etc)? No Per policy, patient may rece luis felipe all applicable life support PRE arrest: Acknowledged * Do NOT Attempt CPR - Inpatient Date Activated Date Inactivated Comments 09/03/2022 3:00 PM 09/05/2022 7:08 PM Question Answer Comments Code Status decision made by: Patient Independent of Code Status d ecision, are there any PRE Arrest limitations (Intubation, Pressors, Cardioversion / Pacing, etc)? Yes PRE Arrest Intubation Permitted? No * Attempt Cardiopulmonary Resuscitation - Inpatient Date Activated Date Inactivated Comments 09/03/2022 12:01 PM 09/03/2022 3:00 PM Question Answer Comments Code Status decision made by: Patient * Attempt Cardiopulmonary Resuscitation - Inpatient Date Activated Date Inactivated Comments 09/03/2022 8:56 AM 09/03/2022 10:42 AM Question Answer Comments Code Status decision made by: Patient * Attempt Cardiopulmonary Resuscitation - Inpatient Date Activated Date Inactivated Comments 11/20/2021 10:31 AM 11/20/2021 5:12 PM Question Answer Comments Code Status decision made by: Patient Care Teams Supply Cataloguer Relationship Specialty Start Date End Date Brittany Wynne MD [address] [place] [address] [place] [address] PCP - General Family Medicine 10/23/21
--- OUTSIDE RECORDS SUMMARY | 2024-10-26 16:31 | XMS_ITS | Encounter Summary ---
[place] [address] Care Team Providers Care Hand Decorator Name Role Phone Brittany Wynne MD Primary Care Provider + Encounter Details Date Type Department Care Team (Late st Contact Info) Description 04/08/2024 Specialty [place] [phone] Rodriguez Crawford, [facility] Social History Tobacco Use Types Packs/Day Years [...] place to sleep or slept in a long term (including now)? No 11/06/2021 Sex and Gender Information Value Date Recorded Sex Assigned at Female 10/16/2021 7:15 PM EST Gender Identity Female 10/16/2021 7:15 PM EST Sexual Orientation Straight 10/16/2021 7: 15 PM EST documented as of this encounter Plan of Treatment Upcoming Encounters Date Type Department Care Team (Late st Contact Info) Description 01/11/2025 1:00 PM EDT Office Visit Radiation Oncology at [address] [phone] Misty Llanos MD [facility] [place] [address] 08/23/2025 1:10 PM EST Appointment Mammography[place] [address] Jody Tam APRN [facility] [place] [address] 08/23/2025 2:10 PM EST Office [place] [phone] Jody Tam APRN [facility] [place] [address] documented as of this encounter Visit Diagnoses Not on filedocumented in this encounter Care Teams Hand Decorator Relationship Specialty Start Date End Date Brittany Wynne MD [address] [place] [address] [place] [address] PCP - General Family Medicine 10/23/21 documented as of this encounter
--- OUTSIDE RECORDS SUMMARY | 2024-10-26 16:31 | XMS_ITS | Encounter Summary ---
Author Organization [facility] [place] [address] Care Team Providers Care Internal Communications Specialist Name Role Phone Brittany Wynne MD Primary Care Provider + Encounter Details Date Type Department Care Team (Late st Contact Info) Description 06/12/2024 [place] [phone] Luzmaria Garcia, RT Social History Tobacco Use Types Packs/Day Years [...] place to sleep or slept in a jail (including now)? No 11/06/2021 Sex and Gender Information Value Date Recorded Sex Assigned at Female 10/16/2021 7:15 PM EST Gender Identity Female 10/16/2021 7:15 PM EST Sexual Orientation Straight 10/16/2021 7: 15 PM EST documented as of this encounter Miscellaneous Notes * Telephone Encounter - Luzmaria Garcia RT - 06/12/2024 1:45 PM EDT Gena called and LM returning call. she has been having home PT -[facility] and she is doing her home exercise program daily. She noted difficult time connecting with pulmonary. Plan: forward to interventional pulmonary to follow up with patient. documented in this encounter Plan of Treatment Upcoming Encounters Date Type Department Care Team (Late st Contact Info) Description 01/11/2025 1:00 PM EDT Office Visit Radiation Oncology at [address] [phone] Misty Llanos MD [facility] [place] [address] 08/23/2025 1:10 PM EST Appointment Mammography/[place] [address] Jody Tam APRN [facility] [place] [address] 08/23/2025 2:10 PM EST Office [place] [address] Jody Tam APRN [facility] [place] [address] documented as of this encounter Visit Diagnoses Not on filedocumented in this encounter Care Teams Internal Communications Specialist Relationship Specialty Start Date End Date Brittany Wynne MD [address] [place] [address] [place] [address] PCP - General Family Medicine 10/23/21 documented as of this encounter
--- OUTSIDE RECORDS SUMMARY | 2024-10-26 16:31 | XMS_ITS | Encounter Summary ---
Author Organization [facility] [place] [address] Care Team Providers Care Shipyard Painter Helper Name Role Phone Brittany Wynne MD Primary Care Provider + Encounter Details Date Type Department Care Team (Late st Contact Info) Description 05/27/2024 [place] [phone] Suha Fallon Social History Tobacco Use Types [...] PM EDT Office Visit Radiation Oncology at [address] [phone] Misty Llanos MD [facility] DR [place] [address] 08/23/2025 1:10 PM EST Appointment Mammography[place] [address] Jody Tam DETAILER [facility] [place] [address] 08/23/2025 2:10 PM EST Office [place] [address] Jody Tam APRN [facility] [place] [address] documented as of this encounter Visit Diagnoses Not on filedocumented in this encounter Care Teams Shipyard Painter Helper Relationship Specialty Start Date End Date Brittany Wynne MD [address] [place] [address] [place] [address] PCP - General Family Medicine 10/23/21 documented as of this encounter
--- OUTSIDE RECORDS SUMMARY | 2024-10-26 16:31 | XMS_ITS | Encounter Summary ---
Author Organization [facility] [address] Care Team Providers Care Floor Plan Adjuster Name Role Phone Brittany Wnyne MD Primary Care Provider + Reason for Referral * Diagnostic Test (Routine) - Closed Specialty Diagnoses / Procedures Referred By Sandeep palm Referred To Contact Cardiology Diagnoses Chronic obstructive pulmonary disease, unspecified COPD type Procedures Echocardiogram Transthoracic Meera Burgos APRN [facility] [place] [address] [facility] [place] [address] Referral ID Status Reason Start Date Expiration Date V isits Requested Visits Authorized [id number] Closed Specialty Service Requested 09/24/2023 09/23/2024 1 1 Encounter Details Date Type Department Care Team (Late st Contact Info) Description 09/24/2023 Orders [place] [phone] Meera Burgos APRN [facility] [place] [address] Chronic obstructive pulmonary disease, unspecified COPD type (Primary Dx) Social History Tobacco Use Types Packs/Day Years [...] place to sleep or slept in a correction (including now)? No 11/06/2021 Sex and Gender Information Value Date Recorded Sex Assigned at Female 10/16/2021 7:15 PM EST Gender Identity Female 10/16/2021 7:15 PM EST Sexual Orientation Straight 10/16/2021 7: 15 PM EST documented as of this encounter Miscellaneous Notes * Addendum Note - Meera Burgos APRN - 09/24/2023 2:27 PM ESTAddended by: MEERA BURGOS on: 11/12/2023 03:53 PM Modules accepted: Orders documented in this encounter Plan of Treatment Upcoming Encounters Date Type Department Care Team (Late st Contact Info) Description 01/11/2025 1:00 PM EDT Office Visit Radiation Oncology at [address] [phone] Misty Llanos MD [facility] [place] [address] 08/23/2025 1:10 PM EST Appointment Mammography/DXA at [place] [phone] Jody Tam APRN [facility] [place] [address] 08/23/2025 2:10 PM EST Office [place] [phone] Jody Tam [facility] [place] [address] Scheduled Orders Name Type Priority Associated Diagnoses Orde r Schedule Request for Blood Gas Draw (Leb/CGP) Lab Routine Chronic obstructive pulmonary disease, unspecified COPD type Expected: 09/25/2023 (Approximate), Expires: 09/24/2024 Pulmonary Function Testing PFT Routine Chronic obstructive pulmonary disease, unspecified COPD type Expected: 11/13/2023 (Approximate), Expires: 11/12/2024 Pulmonary Function Testing PFT Routine Chronic obstructive pulmonary disease, unspecified COPD type Expected: 11/13/2023 (Approximate), Expires: 11/12/2024 documented as of this encounter Results * ECHO COMPLETE (04/08/2024 10:58 AM EDT) Anatomical Region Laterality Modality Cardiac Other 04/08/2024 10:2 8 AM EDT Narrative 04/08/2024 11:43 AM EDT [address] [place] [id number] ? Echocardiogram Report Name: GENA MORALES ? Study Date: 04/08/2024 10:28 AMBP: 140/85 mmHg ? Patient Location: ? HR: 84 : 1965 ? Height: 150 cm ? Account: [id number] Age: 58 yrs ? Weight: 85 kg Gender: Female ?BSA: 1.8 m2 Ordering Physician: MEERA BURGOS Referring Physician: MEERA BURGOS Performed By: Mary Lopez RDCS Reason For Study: COPD Interpreting Fellow: Berta Mathew. Exam Location: [facility]. Interpretation Summary Left ventricle is of normal [...] abnormalities. No prior echocardiogram for comparison. Procedure Complete-[id number]. Satisfactory quality. There is normal sinus rhythm. [...] Note Jarrett Lowry MD - 04/08/2024 [address] [place] [id number] Echocardiogram Report Name: NINIGENA Study Date: 410:28 AMBP: 140/85 mmHg Patient Location: HR: 84 : 1965 Height: 150 cm Account: [id number] Age: 58 yrs Weight: 85 kg Gender: Female BSA: 1.8 m2 Ordering Physician: MEERA BURGOS Referring Physician: MEERA BURGOS Performed By: Mary Lopez RDCS Reason For Study: COPD Interpreting Fellow: Berta Mathew. Exam Location: [facility]. Interpretation Summary Left ventricle is of normal [...] abnormalities. No prior echocardiogram for comparison. Procedure Complete-[id number]. Satisfactory quality. There is normal sinus rhythm. [...] Dyskinetic 3-5moderate 5 - 6-14large Aneurysmal 15-16diffuse Meera Burgos APRN ECHO ORDERABLES documented in this encounter Visit Diagnoses Diagnosis Chronic obstructive pulmonary disease, unspecified COPD type- Primary Chronic obstructive pulmonary disease, unspecified COPD type documented in this encounter Care Teams Floor Plan Adjuster Relationship Specialty Start Date End Date Brittany Wynne MD [address] [place] [address] [place] [address] PCP - General Family Medicine 10/23/21 documented as of this encounter
--- OUTSIDE RECORDS SUMMARY | 2024-10-26 16:31 | XMS_ITS | Encounter Summary ---
Author Organization [facility] Address [facility] [place] [address] Care Team Providers Care Community Education Specialist Name Role Phone Brittany Wynne MD Primary Care Provider + Encounter Details Date Type Department Care Team (Latest Contact Info) Description 02/24/2024 Travel Social History Tobacco Use Types Packs/Day [...] place to sleep or slept in a penitentiary (including now)? No 11/06/2021 Sex and Gender Information Value Date Recorded Sex Assigned at Female 10/16/2021 7:15 PM EST Gender Identity Female 10/16/2021 7:15 PM EST Sexual Orientation Straight 10/16/2021 7: 15 PM EST documented as of this encounter Plan of Treatment Upcoming Encounters Date Type Department Care Team (Late st Contact Info) Description 01/11/2025 1:00 PM EDT Office Visit Radiation Oncology at [address] [phone] Misty Llanos MD [facility] [place] [address] 08/23/2025 1:10 PM EST Appointment Mammography/[place] [phone] Jody Tam [facility] [place] [address] 08/23/2025 2:10 PM EST Office Visit [place] [phone] Jody Tam [facility] [place] [address] documented as of this encounter Visit Diagnoses Not on filedocumented in this encounter Care Teams Community Education Specialist Relationship Specialty Start Date End Date Brittany Wynne MD [address] [place] [address] [place] [address] PCP - General Family Medicine 10/23/21 documented as of this encounter
--- OUTSIDE RECORDS SUMMARY | 2024-10-26 16:31 | XMS_ITS | Encounter Summary ---
[place] [address] Care Team Providers Care Automotive Project Engineer Name Role Phone Brittany Wynne MD Primary Care Provider + Encounter Details Date Type Department Care Team (Late st Contact Info) Description 08/19/2024 1:40 PM EDT Office [place] [phone] [facility] [place] [address] Jody [facility]SA[facility] [address] Encounter for follow-up surveillance of breast cancer; Malignant neoplasm of lower-outer quadrant of right breast of female, estrogen receptor positive; Breast cancer screening by mammogram Social History Tobacco Use Types Packs/Day Years [...] place to sleep or slept in a longterm (including now)? No 11/06/2021 Sex and Gender Information Value Date Recorded Sex Assigned at Female 10/16/2021 7:15 PM EST Gender Identity Female 10/16/2021 7:15 PM EST Sexual Orientation Straight 10/16/2021 7: 15 PM EST documented as of this encounter Progress Notes * Jody Tam, BETTY - 08/19/2024 1:40 PM EDT Images from the original note were not included. Patient ID: Gena Morales is a 58 y.o. female HPI: Rosalinda is a patient of Dr. 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 She is status post right partial mastectomy and sentinel node excision on November 20, 2021. At today's visit, Rosalinda has no breast concerns and denies new lumps or bumps in her breasts or axilla. She does not typically perform self-breast exams. No nipple discharge or pain in either breast. She denies new headaches, new bony pain or tenderness. She has no new or concerning complaints of fatigue, cardiovascular, or respiratory symptoms. Roaslinda has chronic lung issues and is dealing with some upper back pain recently. Breast cancer history: A screening mammogram in July 2021 showed a mass in the right lower outer quadrant, 8 cm from the nipple. A biopsy on 09/07/21 revealed invasive ductal carcinoma, ER/IN positive, HER-2 negative. She met with Dr. Kendrick and opted for BCT/SNE. Final pathology revealed 8.5 mm low grade IDC. Five lymph nodes were negative. She completed XRT but declined endocrine therapy due to chronic lung issues. Breast Cancer Notes: Method of Cancer Detection Screening mammogram 08/11/2021 Menopausal Status at Diagnosis Postmenopausal Date of Diagnostic Biopsy 09/07/2021 Local Surgery Right partial mastectomy Axillary Management SNE ([address] involved) Date of Last Surgical Procedure 11/20/2021 Histology IDC Location Right lower outer quadrant Size of Primary Malignancy 8.5 mm Grade 1, low Margins Not involved ER Positive IN Positive HER-2 Negative OncotypeDx Recurrence Score N/A Chemotherapy N/A Radiation Therapy Completed 02/19/2022 Adjuvant Endocrine Therapy Declined Genetic Testing Not tested Surveillance Annual mammogram and CBE Breast Cancer Risk Factors: History Age at delivery of first child 19 yo Breast fed Yes Menarche age 10 yo LMP / Menopause 46 yo Hormonal contraception use Yes, ~ 5 yrs Hormone replacement therapy No Family history of breast cancer No Family history of ovarian cancer No Known genetic mutation Not tested Ashkenazi Islam heritage No Family History Negative family history of: Breast Cancer Social Hx: Rosalinda is . Her son, his girlfriend, and their daughter moved in to help her. Physical Activity / Hobbies: No regular exercise due to deconditioning and chronic health issues. She enjoys beading. Smoking Hx: She is a former smoker. ETOH: Rare (1 to 2 per year). Relevant Medical Hx: COPD Surgical Hx: Partial mastectomy Cholecystectomy Appendectomy Physical Exam: General appearance: Alert, well-nourished; in no acute distress. Seated in wheelchair, using O2 vianasal cannula. Skin: Warm and dry. Head: Normocephalic, atraumatic. Neck: Soft and supple without cervical or supraclavicular adenopathy. Cardiovascular: Normal rate, regular rhythm and normal heart sounds. No murmur heard. Pulmonary: Effort normal and breath sounds normal. No signs of respiratory distress, cough, or wheezing. Breasts: Exam performed in the upright and supine positions. The right breast has well-healed inframammary and axillary incisions. The scars are soft and nontender, without mass. No venous prominence, or skin thickening. The left breast is normal in appearance and contour. Both breasts are tender to palpation (R>L), but no suspicious masses, dimpling, erythema, or other skin changes in either breast. No nipple discharge or other nipple changes. The nipples are everted. No palpable axillary lymph nodes bilaterally. The breasts are symmetric. Breast exam by palpation revealed no obvious or distinct masses or nodularity in either breast. Musculoskeletal: Arms with full ROM without any evidence of lymphedema. Fully weight-bearing. Neurological: Alert and oriented x 4. Mood is euthymic and appropriate to the situation. Results: [place] [facility] [place] The results were pending at the time of today's appointment. I will notify Rosalinda of results via myD-H when available. Assessment: Clinical breast exam without notable masses, skin changes, dimpling, or nipple discharge. Doing well without evidence of local recurrence. Stable exam. Plan: 1. Encounter for follow-up surveillance of breast cancer 2. Malignant neoplasm of lower-outer quadrant of right breast of female, estrogen receptor positive 3. Breast cancer screening by mammogram - Mammo Screening Cad and Emery Bilateral; July 2025 We had a discussion today regarding her cancer history, treatments thus far, future treatments, prognosis, and survivorship care. We will plan to see her in Surgical Oncology annually with mammogramsfor at least 5 years, after which she may elect to have annual breast exams and mammograms through her PCP. I have discussed my assessment and recommendations with Rosalinda to include breast awareness and annual mammographic screening with clinical breast exams. Provided today's mammogram is negative, she will follow up with me in one year for ongoing breast cancer surveillance and screening. Rosalinda will contactme if she develops any new breast changes or concerns prior to that appointment. She agrees to thisplan. Survivorship recommendations / Breast cancer risk reduction: Continue annual screening mammograms until life expectancy is <10 years and you remain in good health, or as long as you would consider treatment for a breast cancer if found. Continue clinical breast exams at least once yearly. Continue self breast awareness. For any new or worsening symptoms for which cause remains undetermined, consider breast cancer recurrence. Specifically - new or worsening skeletal pain, headache, diplopia, neurologic deficits, elevated LFTs, abdominal pain/swelling, cough, or SOB. Get at least 150 minutes of cardiovascular exercise and 2 days of resistance/strength training per week. Ways to include exercise at home include yoga and bone building exercise videos online. At home resistance / strength exercise routines are available for free at YouTube.com: Improved Health for Seniors [facility] [employer] Kathie Briceno - LETHA fajardo Consider wearing a weighted vest while walking to help with bone density. Eat a mainly plant-based Mediterranean style diet. Minimize processed foods, simple carbohydrates, sugars, and artificial sweeteners. Do not smoke. If consuming alcohol, limit to 1 drink or less per day. Maintain or achieve a healthy weight. Normal BMI < 25 for individuals under 65 years old; 22-30 for > 65 years old. Manage stress levels. Aim for at least 7 to 8 hours of sleep per night. Be cautious about exposure risk, both what you put in and on your body (ie: artificial fragrances, artificial dyes, as well as certain ingredients in makeup, hair and body care, antiperspirant, sunscreen, insect repellant, laundry detergent, fabric softener, dryer sheets, etc.). Resources to help you make informed choices for personal care products are available at EWG (Environmental Working Group) at ewg.org and free apps for your cell phone from [employer] (Healthy Living), [employer], and [employer]. Anticancer Lifestyle program offers free tools and information to help you improve your diet, increase fitness, decrease stress, and reduce your exposure to harmful chemicals in your home environment. Free course available at anticancerlifestyle.org. All questions were answered to the patient's satisfaction and they state understanding and agreement with today's treatment plan. They are encouraged to follow up sooner if they develop any new or concerning symptoms. I spent 35 minutes related to this encounter on the date of service, which included the following services that were not separately reported: [x] Preparing to see the patient (e.g., review of tests) [x] Obtaining and/or reviewing separately obtained history [x] Performing a medically appropriate examination and/or evaluation [x] Counseling and educating the patient/family/caregiver [x] Ordering medications, tests, or procedures [] Referring and communicating with other health child care supervisor [x] Documenting clinical information in the electronic or other health record [x] Independently interpreting results and communicating results to the patient/family/caregiver [x] Care coordination Jody Tam APRN Surgical Oncology P [phone] F [phone] [facility] documented in this encounter Plan of Treatment Upcoming Encounters Date Type Department Care Team (Late st Contact Info) Description 01/11/2025 1:00 PM EDT Office Visit Radiation Oncology at [address] [phone] Misty Llanos MD [facility] [place] [address] 08/23/2025 1:10 PM EST Appointment Mammography/[place] [phone] Jody Tam APRN [facility] [place] [address] 08/23/2025 2:10 PM EST Office [place] [phone] Jody Tam INDUSTRIAL HYGIENE MANAGER [facility] [place] [address] Scheduled Orders Name Type Priority Associated Diagnoses Orde r Schedule Mammo Screening Cad and Emery Bilateral Imaging Routine Malignant neoplasm of lower-outer quadrant of right breast of female, estrogen receptor positive Breast cancer screening by mammogram Expected: 08/19/2025, Expires: 02/17/2026 documented as of this encounter Visit Diagnoses Diagnosis Encounter for follow-up surveillance of breast cancer Unspecified follow-up examination Malignant neoplasm of lower-outer quadrant of right breast of female, estrogen receptor positive Breast cancer screening by mammogram documented in this encounter Care Teams Automotive Project Engineer Relationship Specialty Start Date End Date Brittany Wynne MD [address] [place] [address] [place] [address] PCP - General Family Medicine 10/23/21 documented as of this encounter
--- OUTSIDE RECORDS SUMMARY | 2024-10-26 16:31 | XMS_ITS | Encounter Summary ---
[place] [address] Care Team Providers Care Bow String Maker Name Role Phone Brittany Wynne MD Primary Care Provider + Reason for Referral * Home Health Care (Routine) - Closed Specialty Diagnoses / Procedures Referred By Sandeep palm Referred To Contact Diagnoses Physical deconditioning Chronic obstructive pulmonary disease, unspecified COPD type Meera Burgos, MEDICAL INTERN [facility] [place] [address] Referral ID Status Reason Start Date Expiration Date V isits Requested Visits Authorized [id number] Closed Consult, Test & Treat 04/09/2024 10/06/2024 999 999 Reason for Visit * Consultation (Routine) - Closed Specialty Diagnoses / Procedures Referred By Sandeep palm Referred To Contact Pulmonology Diagnoses COPD (chronic obstructive pulmonary disease) Warners eval Procedures Warners eval Jacqui Logan MD [address] [place] [address] [facility] [address] [place] [phone] Referral ID Status Reason Start Date Expiration Date Visits Re quested Visits Authorized [id number] Closed 09/17/2023 09/16/2024 1 1 Encounter Details Date Type Department Care Team (Late st Contact Info) Description 04/08/2024 8:00 AM EDT Office Visit Pulmonology at [facility], [place], [facility] [phone] Meera Burgos, BETTY [facility] [place] [phone] Physical deconditioning; Chronic obstructive pulmonary disease, unspecified COPD type Social History Tobacco Use Types Packs/Day Years [...] nc Inhaled Oxygen Concentration - - Weight - - Height 149.9 cm (4' 11) 04/08/2024 7:5 9 AM EDT Body Mass Index - - documented in this encounter Progress Notes * Meera Burgos, MEDICAL INTERN - 04/08/2024 8:00 AM EDT Images from the original note were not included. BRONCHOSCOPIC LUNG VOLUME REDUCTION CONSULTATION NOTE ADVANCED LUNG DISEASE PROGRAM INTERVENTIONAL PULMONOLOGY SECTION OF PULMONARY & CRITICAL CARE MEDICINE PATIENT NAME: Gena Morales : 1965 MEDICAL RECORD: [id number] DATE OF SERVICE: 04/07/2024 PRIMARY CARE PHYSICIAN: Brittany Wynne MD PRIMARY ASSEMBLER CARBON BRUSHES: Jacqui Logan MD StratX ID #: #[id number] Reason for Consultation: I have been asked to see Ms. Morales by Dr. Jacqui Logan for evaluation for bronchoscopic lung volume reduction (BLVR) candidacy. History of Present Illness: Ms. Gena Morales is a 58 y.o. woman with a history of severe emphysema with associated air-trapping and dyspnea. She is currently followed and managed for this by Dr. Jacqui Logan. Pertinent pulmonary medications include Breztri, albuterol nebulizer, duoneb, montelukast, Deliresp, nasocort,and Tezspire. She is on prednisone 40 mg x 5 days that she feels like it's. She was having to take prednisone and azithromycin about ever month prior to starting Tezspire in October 2023. The patientdoes utilize home oxygen 2-3 LPM at rest and up to 4- 4.5 LPM with exertion. The patient is not actively smoking. Her last cigarette was 2021. The patient has not been previously enrolled in pulmonary rehabilitation. [place] and does not have a car/transportation. Ms. Morales more recently became strong enough that she feels like she could participate at this time. The more she moves around the better she feels. Baseline symptoms include dyspnea with exertion, minimal cough, and phlegm p roduction (clear to thick yellow to brown). She take Mucinex with improvement of her sputum. Ms. Morales has a spiculated left upper lobe nodule. She underwent a CT guided lung biopsy 09/03/2022 with findings of chronic inflammation. She unfortunately had a post procedural pneumothorax. She underwent radiation treatment for her breast cancer that was completed 02/19/2022 to her right breast. Since her radiation she has notice a worsening in her breathing. She went from no oxygen to needing oxygen s/p radiation. Review of Systems: A 12 point ROS was negative aside from as listed in the HPI. Past Medical History: Patient Active Problem List Diagnosis Code Malignant neoplasm of right breast in female, estrogen receptor positive C50.911, Z17.0 Pneumothorax after biopsy J95.811 Allergic rhinitis J30.9 Anxiety F41.9 Asthma J45.909 Chronic obstructive lung disease J44.9 Cough R05.9 Nicotine dependence F17.200 Medications: Current Outpatient Medications on File Prior to Visit Medication Sig Dispense Refill Arformoterol (Brovana) 15 mcg/2 mL Solution for Nebulization USE 2 ML VIA NEBULIZER TWICE DAILY budesonide (Pulmicort) 1 mg/2 mL nebulizer suspension USE 1 AMPULE VIA NEBULIZER DAILY triamcinolone (Nasacort/Nasacort OTC) 55 mcg nasal inhaler 1 spray daily. Tezspire 210 mg/1.91 mL (110 mg/mL) Pen Injector 0 Refill(s) miconazole (Micotin) 2 % Cream Apply topically 2 times daily. APPLY TOPICALLY TO THE AFFECTED AREA TWICE DAILY roflumilast (Daliresp) 500 mcg tablet Take 500 mcg by mouth daily. nystatin (MYCOSTATIN) 100,000 unit/gram Powder Apply topically 2 times daily. Use for 2 weeks. 30 g1 Zoloft 25 mg tablet Take 25 mg by mouth. LORazepam (Ativan) 0.5 mg tablet Take 0.5 mg by mouth. Take 0.5 tablet prn albuteroL (Proventil, Ventolin) (2.5 mg/3 mL) (0.083 %) Solution for Nebulization Take 3 mLs by nebulization every 4 hours as needed for Wheezing or Shortness of Breath. Breztri Aerosphere 160-9-4.8 mcg/actuation HFA Aerosol Inhaler Inhale 2 puffs into the lungs 2 times daily. guaiFENesin ER (Mucinex) 600 mg Tablet Extended [...] Tablet Take 10 mg by mouth nightly. ipratropium-albuteroL (Duoneb) 0.5 mg-3 mg(2.5 mg base)/3 mL Solution for Nebulization Take 3 mLs by nebulization every 4 hours as needed. No current facility-administered medications on file prior to visit. Social History: Smoking status: Former smoker, quit 2021 Smoking history: 25 pack year smoker EtOH: Rarely Other drugs: Denies, edible THC 1-2 times a years The patient lives in [place], grew up in 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 female, chronically ill appearing, presents in a wheel chair on supplemental oxygen HEENT: Moist mucous membranes, sclera are white Neck: Supple, trachea is midline, no gross deformity Lymphatics: No obvious lymphadenopathy Cardiovascular: Nl s1/s2, rrr Respiratory: Clear to auscultation bilaterally GI: soft, nt, nd Extremities: no LE edema noted, no clubbing Labs: Arterial blood gas (on room air x10 minutes) performed 04/08/2024: 7.40/35/75 PFTS: DATE Post-BD FVC Post-BD FEV1 FEV1/FVC DLCO TLC RV 6MWT 11/22/2023 53% 26% (0.53L) 39% 53% 120% 190% 265 meters 04/08/2024 BLVR Criteria: Indications Age 45-74 years old Yes 58 y.o. Post-BD FEV1 15-50% Yes 26% RV >/ 150% (>/200% if homogeneous) Yes 190% TLC >/ 100% Yes 120% DLco >/20% Yes 53% 6MWT 100-500 meters Yes 265 meters Contraindications Smoking last 4 months No Quit date: 2021 PCO2 >60 mmHg? No 35 mmHg PaO2 <45 mmHg? No 75 mmHg PASP >45 mmHg No 29 mmHg LVEf <45% No 63% BMI >/ 35 Yes 37.73 kg/m2 Pulmonary nodules in target lobe being monitored No Any new pulmonary nodules last 3 months No Prior lobectomy/LVRS No >1 year since pulm rehab Yes Never attended ACS or CHF event last 6 mo No >/ 2 AECOPD last 12 mo Yes Was having frequent exacerbations prior to starting . Two exacerbations since >/2 Pneumonia last 12 mo No Allergy to valve components (nickel, titanium, silicone) Unknown Unknown, possible reaction to Nickel in the past Presence of A1AT deficiency No Prednisone >/ 20 mg/d No Imaging: (Images personally reviewed) 04/03/2023 CT chest: StratX protocol?: Yes Emphysema changes most prominent in the upper lobes, left upper lobe nodule 09/29/2023 StratX Report (ID #[id number]): Voxel density scores less that 50 in all lobes 04/08/2024 Transthoracic Echocardiogram (TTE): Interpretation Summary Left ventricle is of normal [...] valvular abnormalities. No prior echocardiogram for comparison. mMRC (Modified Medical Research Chuck Splitter) Dyspnea Scale: Grade +3: Stops for breath after walking 100 yards (91 m) or after a few minutes. Assessment: My assessment at this time is that Ms. Morales is a pleasant 58 y.o. woman with severe emphysema that is significantly impacting the quality of her life. Candidacy for bronchoscopic lung volume reduction (BLVR) with the Warners endobronchial valves (EBV) is based on a combination findings including patient characteristics, quantitative/physiologic CT analysis using the StratX assessment tool, quantitative perfusion scanning, and final Chartis evaluation for collateral ventilation at the time of future bronchoscopy. All potential candidates are then discussed at our monthly multi-disciplinary advanced lung disease conference prior to finalization of a decision. In the case of Ms. Morales, she currently does not have any targeted lobe(s) from her StratX report and the voxel density scores being too low in all lobes. We reviewed that if a future StratX report demonstrates high voxel density scores that would make her a potential candidate then likely the primary target(s) for BLVR may include the right upper plus middle lobes which demonstrate a fissure completeness of 95%, emphysema destruction score of 42% (-910 HU), and inspiratory volume of 1336 mL. Final evaluation for collateral ventilation would occur during Chartis assessment which is performed intra-procedure immediately prior to valve deployment. Presence of collateral ventilation would lead to evaluation of alternative targets or termination of the procedure. Patients with >95%, 80-95%, and <80% fissure completeness on StratX have a 14%, 46% and 84% change of being CV+ at the time of Chartis respectively. The details of bronchoscopic lung volume reduction, including a discussion of potential benefits weighed against short and long-terms risks, were discussed at length with Ms. Morales. In addition to the above, we reviewed some of the associated data including: In the Liberate study, 65% of patients have clinically significant improvements in lung function, exercise tolerance and quality of life If the patient is CV - and valves are placed the patient will remain in the hospital for at least 3nights to observe for pneumothorax We specifically discussed the risks including the major complications of pneumothorax, COPD exacerbation, respiratory failure, pneumonia and overall mortality Pneumothorax occurred in 26.6% of the treatment population and 82% of those required a chest tube. 76% of the pneumothoraces occurred in the first 72 hours post-procedure COPD exacerbation occurred in approximately 8.4% of the treatment population in the first 45 days post procedure Respiratory failure was seen in about 1.6% in the first 45 days post procedure Pneumonia was seen in about 7% within the first 45 days, typically in untreated regions Mortality was 3.3% at 1 year compared to 2.8% in the group receiving optimal medical care Many patients will require repeat bronchoscopy for valve revision after initial placement The patient also is aware that after 45 days, the risk of COPD exacerbation, pneumonia, as well as respiratory failure is less in the group that received EBV's compared to those receiving traditionaloptimized standard of care. Ms. Morales states that she understands the risk and benefits of the procedure and would like to proceed with continued evaluation. I told her that in most cases patients on average received four endobronchial valves but the range can be from 3 valves up to 7 based on anatomy that is seen at the time of the bronchoscopy.Ms. Morales was provided ample time to ask questions which were answered to her liking. A FAQ sheet regarding our BLVR program was provided as well. In summary, on the current StratX report her voxel density score is too low to consider BLVR to anylobe. She has evidence of emphysema on her CT chest scan. I will plan to obtain her most recent CT scan from October 2023 and run the StratX on it. If her Voxel density scores are still low then BLVRwill likely not be beneficial to her. She is unable to attend pulmonary rehab due to lack of transportation, but she is agreeable to in home PT, which I will order for her. Lastly, if she is a candidate for BLVR in the future then we will need to test her for a nickel allergy given her history of reactions to jewelry in the past. Recommendations: Referral to home physical therapy Obtain last CT chest from October 2023 for repeat StratX report Case to be discussed at our next multidisciplinary advanced lung disease meeting s/p updated StratXreport Note to be sent to Brittany Wynne MD and Dr. Jacqui Logan Follow-up with me in with results of the StratX report I personally performed a total of 60 minutes or greater of aggregate time involved in patient evaluation, reviewing medical records, interpreting diagnostic studies (imaging and/or labs), formulatingmy plan, and documentation of this consultation note This patient caries a serious or complex condition for which I will be providing long-term additional follow-up ([id number]) Meera Burgos APRN Interventional Pulmonology Section of Pulmonary & Critical Care Pager: [phone] documented in this encounter Plan of Treatment Upcoming Encounters Date Type Department Care Team (Late st Contact Info) Description 01/11/2025 1:00 PM EDT Office Visit Radiation Oncology at [address] [phone] Misty Llanos MD [facility] [place] [address] 08/23/2025 1:10 PM EST Appointment Mammography/[place] [phone] Jody Tam APRN [facility] [place] [address] 08/23/2025 2:10 PM EST Office Visit [place] [phone] Jody Tam MEDICAL INTERN [facility] [place] [address] Scheduled Referrals Name Type Priority Associated Diagnoses Orde r Schedule Referral to Home Health Outpatient Referral Routine Physical deconditioning Chronic obstructive pulmonary disease, unspecified COPD type Ordered: 04/09/2024 documented as of this encounter Procedures Procedure Name Priority Date/Time Associated Diagnosis Comments BLOOD GAS ARTERIAL POC Routine 04/08/2024 9:52 AM EDT documented in this encounter Results * (ABNORMAL) BLOOD GAS 2 ARTERIAL (04/08/2024 9:52 AM EDT) pH, Arterial 7.40 7.35 - 7.45 [facility] PCO2, Arterial 35 35 - 45 mmHg [facility] PO2, Arterial 75(L) 85 - 104 mmHg [facility] Bicarbonate, Arterial 21.2 20.0 - 26.0 mmol/L [facility] Base Excess, Arterial -3.6(L) -3.0 - 3.0 mmol/L [facility] Hgb Blood Gas 12.4 11.7 - 15.5 g/dL [facility] Oxyhemoglobin, Arterial 94.3 94.0 - 97.0 % [facility] Carboxyhemoglob in, Arterial 0.3 % [facility] Comment: Nonsmokers: 0.5-1.5% COHB Smokers: Variable, but usually less than 10% Toxic: 20-30% COHB Lethal: Greater than 60% COHB Methemoglobin, Arterial 0.4 <=1.5 % [facility] Na Whole Blood 142 135 - 145 mmol/L [facility] K Whole Blood 3.7 3.5 - 5.0 mmol/L [facility] Comment: Please note: Patients with WBC >100,000 may have falsely elevated Potassium levels. Contact the Clinical Chemistry Laboratory if there are any questions. ICa Whole Blood 1.23 1.15 - 1.33 mmol/L [facility] Comment: Note: ??Total bilirubin higher than 20 mg/dL may lead to falsely low ionized calcium. CL Whole Blood 106 98 - 107 mmol/L [facility] Gluc Whole Bld 90 65 - 199 mg/dL [facility] Comment:Diabetes: >=200 mg/d L plus symptoms. Lactate WB 1.2 0.5 - 2.2 mmol/L [facility] Blood Arterial Draw / Unknown 04/08/2024 9:52 AM EDT 04/08/2024 9:52 AM EDT Narrative Resulting Agency Comment Spec In Lab Meera Burgos APRN POINT OF CARE TEST ORDERABLES [facility] [place] [address] documented in this encounter Visit Diagnoses Diagnosis Physical deconditioning Debility, unspecified Chronic obstructive pulmonary disease, unspecified COPD type documented in this encounter Care Teams Bow String Maker Relationship Specialty Start Date End Date Brittany Wynne MD [address] [place] [address] [place] [address] PCP - General Family Medicine 10/23/21 documented as of this encounter
--- OUTSIDE RECORDS SUMMARY | 2024-10-26 16:31 | XMS_ITS | Encounter Summary ---
[place] [address] Care Team Providers Care Heavy Repairer Name Role Phone Brittany Wynne MD Primary Care Provider + Encounter Details Date Type Department Care Team (Late st Contact Info) Description 04/08/2024 9:00 AM EDT Office Visit [place] [phone] Luzmaria Garcia, RT Chronic obstructive pulmonary disease, unspecified COPD type [...] as of this encounter Progress Notes * Luzmaria Garcia, RT - 04/08/2024 9:00 AM EDT Arterial Blood Gas Procedure Robby's test performed on left radial and ulnar arteries. Result: Positive Transitioned Gena Morales to Room Air per BLVR protocol. Resting SpO2: 98% HR: 87 bpm on 3 lpm Resting SpO2: 96% HR: 86 bpm at 2 minutes Resting SpO2: 96% HR: 87 bpm at 4 minutes Resting SpO2: 95% HR: 91 bpm at 6 minutes Resting SpO2: 96% HR: 87 bpm at 8 minutes Obtained (1-2 mL) sample from left radial artery. Post procedure care: - Applied pressure to area with gauze for 5-10 minutes. - The specimen was labeled in accordance with the [facility] [place]. Resting SpO2: 99% on 3 lpm O2 HR: 82 bpm at 10 minutes 6 Minute Walk: for Gena Morales Pre-Walk Vitals: BP: 122/76 HR:83 SpO2: 97% Supplemental Oxygen:3 lpm O2 KELLY( dyspnea): 0 Rate of Perceived Exertion: 0 1 minute: SpO2 during walk: HR:92 SpO2 :95% Supplemental Oxygen:3 lpm 2 minutes: SpO2 during walk: HR:119 SpO2 :95% Supplemental Oxygen:3 lpm 3 minutes: SpO2 during walk: HR:118 SpO2 :94% Supplemental Oxygen:3 lpm O2 4 minutes: SpO2 during walk: HR:118 SpO2 :94% Supplemental Oxygen:3 lpm O2 5 minutes: SpO2 during walk: HR:118 SpO2 :94% Supplemental Oxygen:3 lpm O2 Post-Walk Vitals: HR: 124 SpO2: 94% Supplemental Oxygen:3 lpm O2 KELLY( dyspnea):3 Rate of Perceived Exertion: 2 Recovery: 2:30 minutes BP: 152/86 HR: 92 SpO2: 99% Supplemental Oxygen: 3 lpm O2 KELLY( dyspnea): 2 Rate of Perceived Exertion: 0 Comments: Gena Morales walked a distance of 265.2 meters ( 870 feet) in 6 minutes with no rests. She pushed the wheelchair that carried her oxygen throughout the walk. KELLY/RPE Scale: 0 Nothing at all 0.5 Very, very slight (just noticeable 1 Very slight 2 Slight 3 Moderate 4 Somewhat severe 5 Severe 6 7 Very severe 8 9 Very, very severe (almost maximal) 10 Maximal RT SHALOM documented in this encounter Plan of Treatment Upcoming Encounters Date Type Department Care Team (Late st Contact Info) Description 01/11/2025 1:00 PM EDT Office Visit Radiation Oncology at [address] [phone] Misty Llanos MD [facility] [place] [address] 08/23/2025 1:10 PM EST Appointment Mammography/[place] [phone] Jody Tam APRN [facility] [place] [address] 08/23/2025 2:10 PM EST Office Visit [place] [phone] Jody Tam APRN [facility] [place] [address] documented as of this encounter Visit Diagnoses Diagnosis Chronic obstructive pulmonary disease, unspecified COPD type documented in this encounter Care Teams Heavy Repairer Relationship Specialty Start Date End Date Brittany Wynne MD [address] [place] [address] [place] [address] PCP - General Family Medicine 10/23/21 documented as of this encounter
--- OUTSIDE RECORDS SUMMARY | 2024-10-26 16:31 | XMS_ITS | Encounter Summary ---
Author Organization [facility] Address [facility] [place] [address] Care Team Providers Care Manager Aviation Name Role Phone Brittany Wynne MD Primary Care Provider + Encounter Details Date Type Department Care Team (Late st Contact Info) Description 08/28/2023 Ancillary Procedure Radiology Library at [facility] [place] [place] [phone] Brittany Wynne MD [address] [place] [address] [place], [place] [id number] Social History Tobacco Use Types Packs/Day Years [...] place to sleep or slept in a retirement (including now)? No 11/06/2021 Sex and Gender Information Value Date Recorded Sex Assigned at Female 10/16/2021 7:15 PM EST Gender Identity Female 10/16/2021 7:15 PM EST Sexual Orientation Straight 10/16/2021 7: 15 PM EST documented as of this encounter Plan of Treatment Upcoming Encounters Date Type Department Care Team (Late st Contact Info) Description 01/11/2025 1:00 PM EDT Office Visit Radiation Oncology at [address] [phone] Misty Llanos MD [facility] DR [place] [address] 08/23/2025 1:10 PM EST Appointment Mammography[place] [phone] Jody Tam APRN [facility] [place] [address] 08/23/2025 2:10 PM EST Office [place] [phone] Jody Tam APRN [facility] [place] [address] documented as of this encounter Procedures Procedure Name Priority Date/Time Associated Diagnosis Comments FILM LIBRARY STORAGE ONLY DX CHEST Routine 08/28/2023 12:00 AM EST documented in this encounter Results * Film Library- Storage Only DX Chest (08/28/2023 12:00 AM EST) Narrative [facility] - 09/17/2023 11:16 AM EST This exam is auto-finalizing. It's purpose is for storage only. Brittany Wynne MD IMG FILM LIBRARY ORDERABLES Performing Organization Address City/State/[facility] Co de Phone Number [place], [place] documented in this encounter Visit Diagnoses Not on filedocumented in this encounter Care Teams Manager Aviation Relationship Specialty Start Date End Date Brittany Wynne MD [address] [place] [address] [place] [address] PCP - General Family Medicine 10/23/21 documented as of this encounter
--- OUTSIDE RECORDS SUMMARY | 2024-10-26 16:31 | XMS_ITS | Encounter Summary ---
Author Organization [facility] Address [facility] [place] [address] Care Team Providers Care Metalizing Machine Operator Automatic Name Role Phone Brittany Wynne MD Primary Care Provider + Encounter Details Date Type Department Care Team (Latest Contact Info) Description 04/01/2024 Travel Social History Tobacco Use Types Packs/Day [...] place to sleep or slept in a detention (including now)? No 11/06/2021 Sex and Gender Information Value Date Recorded Sex Assigned at Female 10/16/2021 7:15 PM EST Gender Identity Female 10/16/2021 7:15 PM EST Sexual Orientation Straight 10/16/2021 7: 15 PM EST documented as of this encounter Plan of Treatment Upcoming Encounters Date Type Department Care Team (Late st Contact Info) Description 01/11/2025 1:00 PM EDT Office Visit Radiation Oncology at [address] [phone] Misty Llanos MD [facility] [place] [address] 08/23/2025 1:10 PM EST Appointment Mammography/[place] [phone] Jody Tam [facility] [place] [address] 08/23/2025 2:10 PM EST Office Visit [place] [phone] Jody Tam [facility] [place] [address] documented as of this encounter Visit Diagnoses Not on filedocumented in this encounter Care Teams Metalizing Machine Operator Automatic Relationship Specialty Start Date End Date Brittany Wynne MD [address] [place] [address] [place] [address] PCP - General Family Medicine 10/23/21 documented as of this encounter
--- OUTSIDE RECORDS SUMMARY | 2024-10-26 16:31 | XMS_ITS | Encounter Summary ---
Author Organization [facility] Address [facility] [place] [address] Care Team Providers Care Hat Forming Machine Feeder Name Role Phone Brittany Wynne MD Primary Care Provider + Encounter Details Date Type Department Care Team (Latest Contact Info) Description 11/11/2023 Travel Social History Tobacco Use Types Packs/Day [...] place to sleep or slept in a assisted (including now)? No 11/06/2021 Sex and Gender [...] EDT Office Visit Radiation Oncology at [address] [phone] Misty Llanos MD [facility] DR RADIATION [place] [address] 08/23/2025 1:10 PM EST Appointment Mammography/[place] [phone] Jody Tam [facility] GENER[place] [address] 08/23/2025 2:10 PM EST Office [place] [phone] Jody Tam [facility] GENER[place] [address] documented as of this encounter Visit Diagnoses Not on filedocumented in this encounter Care Teams Hat Forming Machine Feeder Relationship Specialty Start Date End Date Brittany Wynne MD [address] [place] [address] [place] [address] PCP - General Family Medicine 10/23/21 documented as of this encounter
--- OUTSIDE RECORDS SUMMARY | 2024-10-26 16:31 | XMS_ITS | Encounter Summary ---
Author Organization [facility] Address [facility] [place] [address] Care Team Providers Care Sterile Supervisor Name Role Phone Brittany Wynne MD Primary Care Provider + Encounter Details Date Type Department Care Team (Latest Contact Info) Description 07/19/2023 Travel Social History Tobacco Use Types Packs/Day [...] place to sleep or slept in a skilled nursing (including now)? No 11/06/2021 Sex and Gender Information Value Date Recorded Sex Assigned at Female 10/16/2021 7:15 PM EST Gender Identity Female 10/16/2021 7:15 PM EST Sexual Orientation Straight 10/16/2021 7: 15 PM EST documented as of this encounter Plan of Treatment Upcoming Encounters Date Type Department Care Team (Late st Contact Info) Description 01/11/2025 1:00 PM EDT Office Visit Radiation Oncology at [address] [phone] Misty Llanos MD [facility] [place] [address] 08/23/2025 1:10 PM EST Appointment Mammography/[place] [phone] Jody Tam [facility] [place] [address] 08/23/2025 2:10 PM EST Office [place] [phone] Jody Tam [facility] [place] [address] documented as of this encounter Visit Diagnoses Not on filedocumented in this encounter Care Teams Sterile Supervisor Relationship Specialty Start Date End Date Brittany Wynne MD [address] [place] [address] [place] [address] PCP - General Family Medicine 10/23/21 documented as of this encounter
--- OUTSIDE RECORDS SUMMARY | 2024-10-26 16:32 | XMS_ITS | Encounter Summary ---
Author Organization [facility] Address [facility] [place] [address] Care Team Providers Care Director Of Program Management Name Role Phone Brittany Wynne MD Primary Care Provider + Encounter Details Date Type Department Care Team (Latest Contact Info) Description 05/14/2023 Travel Social History Tobacco Use Types Packs/Day [...] EDT Office Visit Radiation Oncology at [address] [phone] Misty Llanos MD [facility] [place] [address] 08/23/2025 1:10 PM EST Appointment Mammography/[place] [phone] Jody Tam [facility] [place] [address] 08/23/2025 2:10 PM EST Office [place] [phone] Jody Tam [facility] [place] [address] documented as of this encounter Visit Diagnoses Not on filedocumented in this encounter Care Teams Director Of Program Management Relationship Specialty Start Date End Date Brittany Wynne MD [address] [place] [address] [place] [address] PCP - General Family Medicine 10/23/21 documented as of this encounter
--- OUTSIDE RECORDS SUMMARY | 2024-10-26 16:32 | XMS_ITS | Encounter Summary ---
Author Organization [facility] Address [facility] [place] [address] Care Team Providers Care Business Account Manager Name Role Phone Brittany Wynne MD Primary Care Provider + Reason for Visit * Reason Comments Follow-up Encounter Details Date Type Department Care Team (Late st Contact Info) Description 05/14/2023 2:30 PM EDT Office Visit Radiation Oncology at [address] [phone] Misty Llanos MD [facility] [place] [address] S/P radiotherapy Social History Tobacco Use Types [...] Sign Reading Time Taken Comments Blood Pressure 125/79 05/14/2023 2:56 PM EDT Pulse 100 05/14/2023 2:56 PM EDT Temperature 36.6 ??C (97.9 ??F) 05/14/2023 2 :56 PM EDT Respiratory Rate 20 05/14/2023 2:56 PM EDT Oxygen Saturation 98% 05/14/2023 2:5 6 PM EDT on oxygen 3 liter/minute Inhaled Oxygen Concentration - - Weight - - Height - - Body Mass Index - - documented in this encounter Patient Instructions * Patient Instructions* Misty Llanos MD - 05/14/2023 2:30 PM EDT Gena Chang. Your exam is without worrisome finding. Someone will contact you to schedule followup in 6 months. Misty documented in this encounter Progress Notes * Misty Llanos MD - 05/14/2023 2:30 PM EDT Images from the original note were not included. CC: Sched'd followup s/p xrt completion. HPI: Gena is a 57 y/o f who completed xrt to R breast 1 yr., 2.5 mos ago (02/19/22) for breast ca,R, IDC, gr 1, ER+HI+, Her2-, s/p lumpectomy & SNB, pT1b pN0. [...] after lung bx, w/pneumothorax & subq emphysema. Subjective: She continues followup w/Dr. Logan & reports lung transplant vs valve replacementbeing discussed. No breast problem. Past Medical History: Diagnosis Date Asthma COPD (chronic obstructive pulmonary disease) Malignant neoplasm of right breast in female, estrogen receptor positive 09/29/2021 09/07/21 bx [place]: ER/HI+/HER2- right breast IDC, low grade No lupus/scleroderma. Past Surgical History: Procedure Laterality Date APPENDECTOMY CHOLECYSTECTOMY CT GUIDED BIOPSY LUNG 09/03/2022 CT Guided Biopsy Lung 09/03/2022 Flako Beltrán, DO [facility] RAD CT SCAN CT GUIDED DRAIN CHEST TUBE/PLEURAL DRAIN 09/03/2022 CT Guided Drain Chest Tube/Pleural Drain 09/03/2022 Flako Beltrán DO [facility] RAD CT SCAN IR CHEST TUBE PLACEMENT LEFT 09/03/2022 IR Chest Tube Placement Left 09/03/2022 Walter Yang MD [facility] INTERVENTIONL RAD MAMMO US NEEDLE LOCALIZATION RIGHT Right 11/20/2021 Mammo US Needle Localization Right 11/20/2021 Bettina Chong MD [facility] RAD MAMMOGRAPHY PRO BX/REMV, LYMPH NODE, DEEP AXILL Right 11/20/2021 BIOPSY OR EXCISION OF LYMPH NODE(S), OPEN, DEEP AXILLARY NODE(S) (WRVU 6.43) performed by Dylan Kendrick MD at [facility] OSC PRO INTRAOP SENTINEL LYMPH ID W/DYE INJECTION Right 11/20/2021 INTRAOPERATIVE ID (MAPPING) SENTINEL LYMPH NODE,INCLUDES INJECTION (WRVU 2.5) performed by Dylan Kendrick MD at [facility] OSC PRO MASTECTOMY PARTIAL Right 11/20/2021 MASTECTOMY PARTIAL (WRVU 10.13) performed by Dylan Kendrick MD at [facility] OSC TUBAL LIGATION Your Medications Accurate as of May 14, 2023 3:45 PM. If you have any questions, ask your nurse or doctor. Continued medications, unchanged Dose Details acetaminophen 500 mg tablet Commonly known as: Tylenol Take 1,000 mg by mouth every 6 hours as needed for Pain. 1,000 mg Refills: 0 albuteroL (2.5 mg/3 mL) (0.083 %) Solution for Nebulization Commonly known as: Proventil, Ventolin Take 3 mLs by nebulization every 4 hours as needed for Wheezing or Shortness of Breath. 3 mL Refills: 0 Breztri Aerosphere 160-9-4.8 mcg/actuation HFA Aerosol Inhaler Inhale 2 puffs into the lungs 2 times daily. Generic drug: vhxuufkvlu-ofespcyj-fyrkwugiqd 2 puff Refills: 0 guaiFENesin ER 600 [...] 0.5 tablet prn 0.5 mg Refills: 0 montelukast 10 mg tablet Commonly known as: Singulair Take 10 mg by mouth nightly. 10 mg Refills: 0 Xolair (75 mg/0.5 mL) Syringe Generic drug: omalizumab Refills: 0 Zoloft 25 mg tablet Take 25 mg by mouth. Generic drug: sertraline 25 mg Refills: 0 Physical Exam Constitutional: General: She is not in acute distress. Comments: BP 125/79 (Patient Position: Sitting) Pulse 100 Temp 36.6 ??C (97.9 ??F) (Temporal) Resp 20 SpO2 98% Comment: on oxygen 3 liter/minute HENT: Head: Normocephalic. Eyes: General: No scleral icterus. Right eye: No discharge. Left eye: No discharge. Extraocular Movements: Extraocular movements intact. Conjunctiva/sclera: Conjunctivae normal. Pulmonary: Effort: Pulmonary effort is normal. No respiratory distress. Breath sounds: No stridor. Comments: Receiving O2 via n/c. Chest: Breasts: Right: Inverted nipple (entire life) present. No mass, nipple discharge, skin change or tenderness. Left: Inverted nipple (entire life) present. No mass, nipple discharge, skin change or tenderness. Abdominal: General: There is no [...] Thought content normal. Judgment: Judgment normal. A: STAN. P: Rtc 6 mos. 15 mins encounter documented in this encounter Plan of Treatment Upcoming Encounters Date Type Department Care Team (Late st Contact Info) Description 01/11/2025 1:00 PM EDT Office Visit Radiation Oncology at [address] [phone] Misty Llanos MD [facility] [place] [address] 08/23/2025 1:10 PM EST Appointment Mammography/[place] [phone] Jody Tam, [facility] [place] [address] 08/23/2025 2:10 PM EST Office Visit [place] [phone] Jody Tam [facility] [place] [address] documented as of this encounter Visit Diagnoses Diagnosis S/P radiotherapy Convalescence following radiotherapy documented in this encounter Care Teams Business Account Manager Relationship Specialty Start Date End Date Brittany Wynne MD [address] [place] [address] [place] [address] PCP - General Family Medicine 10/23/21 documented as of this encounter
--- OUTSIDE RECORDS SUMMARY | 2024-10-26 16:32 | XMS_ITS | Encounter Summary ---
Author Organization [facility] Address [facility] [place] [address] Care Team Providers Care Interventional Radiology Technologist Name Role Phone Brittany Wynne MD Primary Care Provider + Encounter Details Date Type Department Care Team (Latest Contact Info) Description 05/07/2023 Travel Social History Tobacco Use Types Packs/Day [...] PM EDT Office Visit Radiation Oncology at [address] [phone] Misty Llanos MD [facility] [place] [address] 08/23/2025 1:10 PM EST Appointment Mammography/[place] [phone] Jody Tam [facility] [place] [address] 08/23/2025 2:10 PM EST Office [place] [phone] Jody Tam [facility] [place] [address] documented as of this encounter Visit Diagnoses Not on filedocumented in this encounter Care Teams Interventional Radiology Technologist Relationship Specialty Start Date End Date Brittany Wynne MD [address] [place] [address] [place] [address] PCP - General Family Medicine 10/23/21 documented as of this encounter
--- OUTSIDE RECORDS SUMMARY | 2024-10-26 16:32 | XMS_ITS | Encounter Summary ---
Author Organization [facility] Address [facility] [place] [address] Care Team Providers Care Production Consultant Name Role Phone Brittany Wynne MD Primary Care Provider + Encounter Details Date Type Department Care Team (Late st Contact Info) Description 04/03/2023 Ancillary Procedure Radiology Library at [facility] [place] [phone] Brittany Wynne MD [address] [place] [address] [address] [place], [place] [id number] Social History Tobacco Use Types Packs/Day Years [...] PM EDT Office Visit Radiation Oncology at [address] [phone] Misty Llanos MD [facility] [place] [address] 08/23/2025 1:10 PM EST Appointment Mammography[place] [phone] Jody Tam APRN [facility] [place] [place] [address] 08/23/2025 2:10 PM EST Office [place] [phone] Jody Tam APRN [facility] [place] [place] [address] documented as of this encounter Procedures Procedure Name Priority Date/Time Associated Diagnosis Comments FILM LIBRARY STORAGE ONLY CT CHEST Routine 04/03/2023 12:00 AM EDT documented in this encounter Results * Film Library- Storage Only CT Chest (04/03/2023 12:00 AM EDT) Narrative [facility] - 09/17/2023 11:16 AM EST This exam is auto-finalizing. It's purpose is for storage only. Brittany Wynne MD IMG FILM LIBRARY ORDERABLES Performing Organization Address City/State/[facility] Co de Phone Number [place], [place] documented in this encounter Visit Diagnoses Not on filedocumented in this encounter Care Teams Production Consultant Relationship Specialty Start Date End Date Brittany Wynne MD [address] [place] [address] [place] [address] PCP - General Family Medicine 10/23/21 documented as of this encounter
--- OUTSIDE RECORDS SUMMARY | 2024-10-26 16:32 | XMS_ITS | Encounter Summary ---
Author Organization [facility] Address [facility] [place] [address] Care Team Providers Care House Carpenter Helper Name Role Phone Brittany Wynne MD Primary Care Provider + Encounter Details Date Type Department Care Team (Latest Contact Info) Description 07/19/2023 1:19 PM EDT - 07/19/2023 11:59 PM EDT Hospital Encounter Mammography/[place] [address] Dylan Kendrick MD [facility] [place] [address] Malignant neoplasm of right breast in female, estrogen receptor positive, unspecified site of breast Discharge Disposition: Home Social History Tobacco Use [...] place to sleep or slept in a prison (including now)? No 11/06/2021 Sex and Gender Information Value Date Recorded Sex Assigned at Female 10/16/2021 7:15 PM EST Gender Identity Female 10/16/2021 7:15 PM EST Sexual Orientation Straight 10/16/2021 7: 15 PM EST documented as of this encounter Medications at Time of Discharge Medication Sig Dispensed Refills Start Date End Date Zoloft 25 mg tablet Take 25 mg [...] nebulization every 4 hours as needed. 10/07/2021 Arformoterol (Brovana) 15 mcg/2 mL Solution for Nebulization USE 2 ML VIA NEBULIZER TWICE DAILY 07/09/2023 04/08/2024 budesonide (Pulmicort) 1 mg/2 mL nebulizer suspension USE 1 AMPULE VIA NEBULIZER DAILY 07/09/2023 04/08/2024 Xolair 75 mg/0.5 mL Syringe 04/24/2023 03/02/2024 documented as of this encounter Plan of Treatment Upcoming Encounters Date Type Department Care Team (Late st Contact Info) Description 01/11/2025 1:00 PM EDT Office Visit Radiation Oncology at [address] [phone] Misty Llanos MD [facility] [place] [address] 08/23/2025 1:10 PM EST Appointment Mammography/[place] [phone] Jody Tam APRN [facility] [place] [address] 08/23/2025 2:10 PM EST Office Visit [place] [phone] Jody Tam APRN [facility] [place] [address] documented as of this encounter Procedures Procedure Name Priority Date/Time Associated Diagnosis Comments MAMMO SCREENING CAD AND JOSE FRANCISCO BILATERAL Routine 07/19/2023 1:47 PM EDT Malignant neoplasm of right breast in female, estrogen receptor positive, unspecified site of breast documented in this encounter Results * Mammo Screening Cad and Jose Francisco Bilateral (07/19/2023 1:47 PM EDT) Anatomical Region Laterality Modality Breast Bilateral Mammography Impressions 07/22/2023 10:06 AM EDT Stable post treatment changes. No mammographic evidence of malignancy. BI-RADS CATEGORY 2: Benign RECOMMENDATION: Routine screening. A result letter has been sent to this patient by the [facility]. * ??Regular screening mammograms starting at age 40 reduces the risk of from breast cancer. * ??Yearly screening provides the most benefit. Women should discuss with their provider their preferred breast cancer screening schedule. * ??Women should report any breast changes to a health care provider right away. * ??Some women, because of their family history, a genetic tendency, or other factors, should be screened with annual breast MRI as well as with mammograms. Thank you for letting us participate in the care of this patient. ??If you are a health care provider and have any questions regarding this report, please contact the number below. ??For patients who have questions please contact the health rn medicare that requested your imaging first. ? Electronically signed by: Shira Zamorano MD, [facility] ([phone]), at 07/22/2023 10:06 AM Narrative 07/22/2023 10:06 AM EDT EXAMINATION: MAMMO SCREENING CAD AND JOSE FRANCISCO BILATERAL REASON FOR EXAM: Screening. History of right breast cancer. TECHNIQUE: CC and MLO views were obtained of the bilateral breast(s). Computer aided detection was used. 3D tomosynthesis images were obtained in addition to 2D images. COMPARISON: Comparison was made to the prior relevant examinations. BREAST DENSITY: There are scattered areas of fibroglandular density. FINDINGS: There are no suspicious microcalcifications, masses, or areas of distortion. There are post surgical changes in the Right Breast and axilla. Dylan Kendrick MD IMG MAMMO ORDERABLES documented in this encounter Visit Diagnoses Diagnosis Malignant neoplasm of right breast in female, estrogen receptor positive, unspecified site of breast documented in this encounter Care Teams House Carpenter Helper Relationship Specialty Start Date End Date Brittany Wynne MD [address] [place] [address] [place] [address] PCP - General Family Medicine 10/23/21 documented as of this encounter
--- OUTSIDE RECORDS SUMMARY | 2024-10-26 16:32 | XMS_ITS | Encounter Summary ---
Author Organization [facility] Address [facility] [place] [address] Care Team Providers Care Conservation Worker Name Role Phone Brittany Wynne MD Primary Care Provider + Reason for Visit * Reason Comments Follow-up Encounter Details Date Type Department Care Team (Late st Contact Info) Description 07/19/2023 1:00 PM EDT Office [place] [address] Helga Quezada APRN [facility] [place] [address] Malignant neoplasm of right breast in female, estrogen receptor positive, unspecified site of breast; Breast cancer screening by mammogram Social History [...] place to sleep or slept in a fpc (including now)? No 11/06/2021 Sex and Gender Information Value Date Recorded Sex Assigned at Female 10/16/2021 7:15 PM EST Gender Identity Female 10/16/2021 7:15 PM EST Sexual Orientation Straight 10/16/2021 7: 15 PM EST documented as of this encounter Progress Notes * Helga Quezada, SOAKERS SUPERVISOR - 07/19/2023 1:00 PM EDT Images from the original note were not included. Comprehensive Breast Program Follow Up Visit Patient ID: Gena Morales is a 57 y.o. female CC: follow up RIGHT breast cancer/imaging-surveillance Current plan: annual mammogram/CBE Surgeon: Aroldo HPI: Gena Morales is a 57 y.o. female presenting for follow up/surveillance imaging for a history of RIGHT breast cancer, post partial mastectomy and SNE on 11/20/21. Path: low grade, IDC, 8 mm, neg margins, ER +; HER2 neg; 0/5 SN involved. Completed adjuvant RT (02/19/22) with Dr. Llanos. Has opted not to take endocrine therapy. Seen by Dr. Kendrick 06/27/22- plan FUV 1 year with bilateral mammogram. Most recent visit with medical oncology on 06/27/22- DEXA showed osteoporosis; discussed recommendation AI and bisphosphonate therapy. Patient deferred new meds due to chronic lung issues and hoping for lung transplant. FUV PRN or if she decided to start therapy Interim history: I reviewed the following outside notes: 05/14/23: Dr. Llanos (radiation)- 09/11: bx of CATHERINE lung nodule- chronic inflammation/scar- no malignancy 09/11: hospitalized for ARDS after lung bx- pneumothorax and subq emphysema; Family History Negative family history of: Breast Cancer Review of systems: Patient concerns for today's visit: no specific concerns Breast(s)/axilla: new lumps, bumps, skin changes, nipple discharge or pain: bumpy from surgery, gained weight after hospitalizations/steroids doesn't do BSE- priority/worry is more about her lung problems Lymphedema of breast and/or arm: none Limitations in affected side ROM arm: none Energy level: feels endurance is better with oxygen supplementation Cardiac/Respiratory symptoms: chest pain or difficulty breathing:+ asthma/COPD; wearing nasal O2 continuous now; tapering prednisone/ just completed antibiotic; exploring valve treatment now- no longer looking at lung transplant New bone pain or tenderness: + cramping with prednisone taper Lifestyle/health/social: Recent significant weight changes : + gain with prednisone therapy Exercise/Bone health: uses wheelchair for long distances; otherwise gets around okay at home Function/work: lives in [facility]; unable to work due to lung problems, on disability past year Smoking: none for past 2 years Alcohol: occasional shot every 2-3 months- very rare Support/ social relationships: lives with son's family and 2 grand daughters; (2nd passed of liver cancer) Regular visits with PCP/immunizations/screenings: yes Physical Exam: General appearance: seen alone, alert, chronically ill appearing; wearing nasal oxygen,no distress Neck: Soft and supple without masses or cervical adenopathy. Breasts: R breast firmer than Left, slight generalized erythema of skin, no edema, no palpable masses/nodules; no axillary adenopathy; Left breast without skin changes, edema, palpable masses/nodules, no axillary findings on exam Musculoskeletal: Arms with full ROM without any evidence of lymphedema. Fully weight-bearing. Used wheelchair due to long distance at hospital (son accompanied her) Neurological: Alert and oriented x 4. Imaging Reviewed Today: 07/19/23 results not available Assessment: Gena Morales is a a 57 y.o. female presenting for follow up/surveillance imaging for a history of RIGHT breast cancer, post partial mastectomy and SNE on 11/20/21. Path: low grade, IDC, 8 mm, neg margins, ER +; HER2 neg; 0/5 SN involved. Completed XRT 02/19/22. Opted not to start endocrine therapydue to chronic lung disease; lung disease is her priority concern now; Medical Decision Making/Recommendations/Plan: # History RIGHT breast cancer; no concerning symptoms reported today; no concerns on physical examination; mammogram results not available at time of our visit. Explained results will appear in her patient portal at the same time that I receive them. I will send her a message when I receive them. Discussed radiology will contact her directly if they recommend additional imaging or biopsy. # Late effects of treatment: no lymphedema noted; R breast + fibrosis from radiation # survivorship recommendations/breast cancer risk reduction: focused on her lung disease options; is not smoking # follow up per NCCN guidelines/her individualized plan: Next mammogram and visit with TIER LIFT OPERATOR (patient of momo Najera with TIER LIFT OPERATOR visit) CBE in 1 year (pending results of today's mammogram) She will call sooner if she develops any new breast changes or concerns. Gena Morales had the opportunity to ask questions and I answered them to the best of my knowledge. Gena Morales agreed to contact surgery department in between visits if she has any questions/concerns or new breast changes or concerns. Helga Quezada, SYLVIA, ANP, SOAKERS SUPERVISOR, AOCNP Nurse Practitioner Comprehensive Breast Program Coverage for Dr. Kendrick documented in this encounter Plan of Treatment Upcoming Encounters Date Type Department Care Team (Late st Contact Info) Description 01/11/2025 1:00 PM EDT Office Visit Radiation Oncology at [address] [phone] Misty Llanos MD [facility] [place] [address] 08/23/2025 1:10 PM EST Appointment Mammography/[place] [phone] Jody Tam, [facility] [place] [address] 08/23/2025 2:10 PM EST Office [place] [address] Jody Tam [facility] [place] [address] documented as of this encounter Results * Mammo Screening Cad [...] [facility]. BIRADS CATEGORY 1: NEGATIVE [[id number]] Electronically signed by: BRIGETTE PARISH MD Breast Imaging Center at [address] [phone] Your breast imaging exam done on: ??08/19/24 [...] distortion. The pattern is stable. Helga Quezada SOAKERS SUPERVISOR IMG MAMMO ORDERABL ES documented in this encounter Visit Diagnoses Diagnosis Malignant neoplasm of right breast in female, estrogen receptor positive, unspecified site of breast Breast cancer screening by mammogram Malignant neoplasm of right breast in female, estrogen receptor positive, unspecified site of breast Breast cancer screening by mammogram documented in this encounter Care Teams Conservation Worker Relationship Specialty Start Date End Date Brittany Wynne MD [address] [place] [address] [place] [address] PCP - General Family Medicine 10/23/21 documented as of this encounter
--- OUTSIDE RECORDS SUMMARY | 2024-10-26 16:32 | XMS_ITS | Encounter Summary ---
Author Organization [facility] Address [facility] [place] [address] Care Team Providers Care Adoption Services Manager Name Role Phone Brittany Wynne MD Primary Care Provider + Encounter Details Date Type Department Care Team (Latest Contact Info) Description 07/12/2023 Travel Social History Tobacco Use Types Packs/Day [...] place to sleep or slept in a alf (including now)? No 11/06/2021 Sex and Gender Information Value Date Recorded Sex Assigned at Female 10/16/2021 7:15 PM EST Gender Identity Female 10/16/2021 7:15 PM EST Sexual Orientation Straight 10/16/2021 7: 15 PM EST documented as of this encounter Plan of Treatment Upcoming Encounters Date Type Department Care Team (Late st Contact Info) Description 01/11/2025 1:00 PM EDT Office Visit Radiation Oncology at [address] [phone] Misty Llanos MD [facility] [place] [address] 08/23/2025 1:10 PM EST Appointment Mammography/[place] [phone] Jody Tam [facility] [place] [address] 08/23/2025 2:10 PM EST Office [place] [phone] Jody Tam [facility] [place] [address] documented as of this encounter Visit Diagnoses Not on filedocumented in this encounter Care Teams Adoption Services Manager Relationship Specialty Start Date End Date Brittany Wynne MD [address] [place] [address] [place] [address] PCP - General Family Medicine 10/23/21 documented as of this encounter
--- OUTSIDE RECORDS SUMMARY | 2024-10-26 16:32 | XMS_ITS | Encounter Summary ---
Author Organization Counts Include [facility] Address [facility] [place] [address] Care Team Providers Care Grinder Set Up Operator Internal Name Role Phone Brittany Wynne MD Primary Care Provider + Encounter Details Date Type Department Care Team (Late st Contact Info) Description 08/15/2022 Telephone Radiation Oncology at [address] [phone] Taylor Bridges, RN Social History Tobacco Use Types Packs/Day Years Used Date Smoking Tobacco: Former Cigarettes Q uit: 12/17/2021 Smokeless Tobacco: Never Alcohol Use Standard Drinks/Week Comments Not Asked 0 (1 standard drink = 0.6 oz [...] encounter Miscellaneous Notes * Telephone Encounter - Taylor Bridges RN - 08/15/2022 1:45 PM EDT Telephone call to patient to let her know that Dr. Logan is working with the biopsy team and she will receive a call when bx scheduled. Gena expressed thanks for the call and states that she wanted to let Dr. Llanos know that she will proceed with the biopsy when scheduled. * Telephone Encounter - Taylor Bridges RN - 08/15/2022 1:44 PM EDT ----- Message from Misty Llanos MD sent at 08/15/2022 12:33 PM EDT ----- Regarding: RE: Biopsy Taylor, can you please let her know that Dr. Logan is working with the biopsy team to schedule it & someone from will call her to schedule? Misty ----- Message ----- From: Wesley Brown RN Sent: 08/15/2022 10:35 AM EDT To: Misty Llanos MD, Taylor Bridges RN Subject: Biopsy ----- Message ----- From: Sumi Gutierrez Sent: 08/15/2022 10:06 AM EDT To: St Rad Onc Nurse Gena called in this morning to let know that she has talked to a uptwister tender and shesaid they feel that she should have a biopsy done. She said she does not need a phone call back butwanted to let her know that she will be doing it when it gets scheduled. Best call back number [phone] documented in this encounter Plan of Treatment Upcoming Encounters Date Type Department Care Team (Late st Contact Info) Description 01/11/2025 1:00 PM EDT Office Visit Radiation Oncology at [address] [phone] Misty Llanos MD [facility] [place] [address] 08/23/2025 1:10 PM EST Appointment Mammography/[place] [phone] Jody Tam [facility] [place] [address] 08/23/2025 2:10 PM EST Office Visit [place] [phone] Jody Tam BEE TENDER [facility] [place] [place] [address] documented as of this encounter Visit Diagnoses Not on filedocumented in this encounter Care Teams Grinder Set Up Operator Internal Relationship Specialty Start Date End Date Brittany Wynne MD [address] [place] [address] [place] [address] PCP - General Family Medicine 10/23/21 documented as of this encounter
--- OUTSIDE RECORDS SUMMARY | 2024-10-26 16:32 | XMS_ITS | Encounter Summary ---
Author Organization [facility] Address [facility] [place] [address] Care Team Providers Care Intern Architect Name Role Phone Brittany Wynne MD Primary Care Provider + Encounter Details Date Type Department Care Team (Latest Contact Info) Description 09/17/2022 Travel Social History Tobacco Use Types Packs/Day [...] PM EDT Office Visit Radiation Oncology at [address] [phone] Misty Llanos MD [facility] [place] [address] 08/23/2025 1:10 PM EST Appointment Mammography/[place] [phone] Jody Tam [facility] [place] [address] 08/23/2025 2:10 PM EST Office [place] [phone] Jody Tam [facility] [address] documented as of this encounter Visit Diagnoses Not on filedocumented in this encounter Care Teams Intern Architect Relationship Specialty Start Date End Date Brittany Wynne MD [address] [place] [address] [place] [address] PCP - General Family Medicine 10/23/21 documented as of this encounter
--- OUTSIDE RECORDS SUMMARY | 2024-10-26 16:32 | XMS_ITS | Encounter Summary ---
[place] [address] Care Team Providers Care Medical Instructor Name Role Phone Brittany Wynne MD Primary Care Provider + Reason for Visit * Auth/Cert (Routine) Specialty Diagnoses / Procedures Referred By Sandeep aplm Referred To Contact Diagnoses Pneumothorax after biopsy Procedures ER [place]PI [place] [address] [facility] Referral ID Status Reason Start Date Expiration Date Visits Re quested Visits Authorized [id number] 1 1 Encounter Details Date Type Department Care Team (Latest Contact Info) Description 09/03/2022 8:10 AM EST Laboratory Appointment Lab [address] [place] [phone] Pre-op testing; Lung nodule Social History Tobacco Use Types Packs/Day Years [...] PM EDT Office Visit Radiation Oncology at [address] [phone] Misty Llanos MD [facility] DR RADIATION ONCOLOGY [place], [place] [phone] 08/23/2025 1:10 PM EST Appointment Mammography/[place] [address] Jody Tam APRN [facility] GENERAL SURGERY [place], [place] [phone] 08/23/2025 2:10 PM EST Office [place] [address] Jody Tam APRN [facility] [place] [address] documented as of this encounter Procedures Procedure Name Priority Date/Time Associated Diagnosis Comments HC PROTHROMBIN TIME STAT 09/03/2022 8 :19 AM EST Pre-op testing Lung nodule HC PLATELET COUNT STAT 09/03/2022 8:1 9 AM EST Pre-op testing Lung nodule documented in this encounter Results * Platelet count (09/03/2022 8:19 AM EST) Platelet 281 145 - 357 x10(3)/mc L [facility] Immature Plt % 1.9 0.0 - 7.4 % [facility] Comment: Limitation of the Immature Platelet Fraction (IPF)-May be less reliable when the platelet count is less than 57i983/uL due to statistical imprecision. The IPF value provides an assessment of the Bone Marrow production status. ??It is useful in differentiating Thrombocytopenia caused by platelet destruction/consumption versus decreased production. It also helps to determine the imminent release of platelets and can be therefore a helpful parameter in Chemotherapy and Bone marrow transplant patients. ELEVATED IPF value: ?? When the bone marrow is in a state of over production such as when increased destruction and consumption are the underlying issue. ?? When the marrow is recovering post chemotherapy or bone marrow transplant. LOW to NORMAL IPF value: ?? When the bone marrow in not responding and is in a decreased state of production. References: [employer] The Clinical Value of the Immature Platelet Fraction (IPF) in Cell Recovery Document Number [id number] 03/2011 [facility] The Role of the Immature Platelet Fraction (IPF) in the Differential Diagnosis of Thrombocytopenia, Document [id number] V003/01/14 P003/03 Blood 09/03/2022 8:19 AM EST 09/03/2022 8:25 AM EST Narrative Resulting Agency Comment Spec In Lab Jacqui Logan MD HEMATOLOGY ORDERABLE S Performing Organization Address City/[facility] Co de Phone Number [facility] [place] [address] * Prothrombin Time (09/03/2022 8:19 AM EST) Prothrombin Time 11.3 9.4 - 12.5 sec [facility] International Normalization Ratio 1.0 [facility] Comment: An INR <2.0 indicates adequate procoagulant activity for hemostasis in most patients without underlying bleeding disorders, though the INR may not adequately reflect hemostatic capacity in patients with liver disease and synthetic impairment. The recommended target INR range for therapeutic anticoagulation is 2.0 ? 3.0 for most applications, though lower and higher ranges may be appropriate depending on clinical circumstances. Blood 09/03/2022 8:19 AM EST 09/03/2022 8:25 AM EST Narrative Resulting Agency Comment Spec In Lab Jacqui Logan MD HEMATOLOGY ORDERABLE S Performing Organization Address [facility] Co de Phone Number [facility] [place] [address] documented in this encounter Visit Diagnoses Diagnosis Pre-op testing Preoperative examination, unspecified Lung nodule Solitary pulmonary nodule documented in this encounter Care Teams Medical Instructor Relationship Specialty Start Date End Date Brittany Wynne MD [address] [place] [address] [place] [address] PCP - General Family Medicine 10/23/21 documented as of this encounter
--- OUTSIDE RECORDS SUMMARY | 2024-10-26 16:32 | XMS_ITS | Encounter Summary ---
[place] [address] Care Team Providers Care Director Of Consumer Marketing Name Role Phone Brittany Wynne MD Primary Care Provider + Encounter Details Date Type Department Care Team (Late st Contact Info) Description 08/16/2022 Notes Only [place] [address] Flako Beltrán, [facility] [place] [address] Social History Tobacco Use Types Packs/Day Years [...] PM EST documented as of this encounter H&P Notes * Flako Beltrán, DO - 08/16/2022 12:55 PM EDT Images from the original note were not included. INTERVENTIONAL RADIOLOGY FOCUSED H&P and PRE-PROCEDURE NOTE: PCP: Brittany Wynne MD Referring Provider: Maddie Logan Planned Procedure: Planned procedure: Left Upper Lobe Lung Nodule Biopsy Procedure Indication: Breast carcinoma. Solitary metabolically active CATHERINE 1.1 cm nodule. Request for biopsy for histopathologic diagnosis / staging. Procedure Request: Procedure request received through the Interventional Radiology eDH order queue. Presenting Diagnosis/ Complaint: Gena Morales is a 56 y.o. female presenting to IR for CATHERINE nodule biopsy. Past medical history is significant for Asthma, COPD, and right breast carcinoma. On follow up PET/CT of 08/11/22 a solitary 1.1 CATHERINE metabolically active nodule was discovered. Request is for percutaneous biopsy for histopathologic diagnosis and staging. IR History: None at [facility]. Antiplatelets: None. Anticoagulants: None. Recent Laboratories: ??? Platelets: 339 on 10/26/21. ??? INR: None. ??? Creatinine: 0.74 on 10/26/21. ??? Getting Laboratories Before Procedure: Yes - Platelet Count and Coagulation Panel. Allergies: None pertinent. Past Medical/Surgical History: Patient Active Problem List Diagnosis Code ??? Malignant neoplasm of right breast in female, estrogen receptor positive C50.911, Z17.0 Past Medical History: Diagnosis Date ??? Asthma ??? COPD (chronic obstructive pulmonary disease) ??? Malignant neoplasm of right breast in female, estrogen receptor positive 09/29/2021 09/07/21 bx [place]: ER/AK+/HER2- right breast IDC, low grade Past Surgical History: Procedure Laterality Date ??? APPENDECTOMY ??? CHOLECYSTECTOMY ??? MAMMO US NEEDLE LOCALIZATION RIGHT Right 11/20/2021 Mammo US Needle Localization Right 11/20/2021 Bettina Chong MD [facility] RAD MAMMOGRAPHY ??? PRO BX/REMV, LYMPH NODE, DEEP AXILL Right 11/20/2021 BIOPSY OR EXCISION OF LYMPH NODE(S), OPEN, DEEP AXILLARY NODE(S) (WRVU 6.43) performed by Dylan Kendrick MD at [facility] ??? PRO INTRAOP SENTINEL LYMPH ID W/DYE INJECTION Right 11/20/2021 INTRAOPERATIVE ID (MAPPING) SENTINEL LYMPH NODE,INCLUDES INJECTION (WRVU 2.5) performed by Dylan Kendrick MD at [facility] ??? PRO MASTECTOMY PARTIAL Right 11/20/2021 MASTECTOMY PARTIAL (WRVU 10.13) performed by Dylan Kendrick MD at [facility] ??? TUBAL LIGATION Medications: Current Outpatient Medications on File Prior to Visit Medication Sig Dispense Refill ??? vcmqwzjqgvb-ynzgfxmxpypy-fifteszcxb (Trelegy Ellipta) 200-62.5-25 mcg Inhale into the lungs daily. ??? budesonide (Pulmicort) 0.5 mg/2 mL Suspension for Nebulization Take 0.5 mg by nebulization daily. ??? Advair HFA 230-21 mcg/actuation HFA Aerosol Inhaler ??? guaiFENesin ER (Mucinex) 600 mg Tablet Extended Release 12hr Take 1,200 mg by mouth 2 times daily. ??? ibuprofen (Advil) 200 mg Tablet Take 200 mg by mouth every 6 hours as needed for Pain. ??? emollient base (CREAM BASE TOP) Apply topically. Remedy Phytoplex Moisturizer. Apply to area ofradiation twice a day but no less than 2 hours before a treatment. ??? Spiriva with HandiHaler 18 mcg Capsule, w/Inhalation Device ??? loratadine (Claritin) 10 mg Tablet Take 10 mg by mouth daily. ??? acetaminophen (Tylenol) 500 mg Tablet Take 1,000 mg by mouth every 6 hours as needed for Pain. ??? albuteroL 90 mcg/actuation HFA Aerosol Inhaler ??? montelukast (Singulair) 10 mg Tablet ??? ipratropium-albuteroL (Duoneb) 0.5 mg-3 mg(2.5 mg base)/3 mL Solution for Nebulization No current facility-administered medications on file prior to visit. Allergies: Amoxicillin Social History and Habits: Social History Socioeconomic History ??? Marital status: Spouse name: Not on file ??? Number of children: Not on file ??? Years of education: Not on file ??? Highest education level: Not on file Occupational History ??? Not on file Tobacco Use ??? Smoking status: Former Smoker Packs/day: 0.50 Types: Cigarettes Quit date: 12/17/2021 Years since quittin.6 ??? Smokeless tobacco: Never Used Vaping Use ??? Vaping Use: Former Substance and Sexual Activity ??? Alcohol use: Not on file Comment: rare prior ??? Drug use: Not on file Comment: edibles on occasion only ??? Sexual activity: Not on file Other Topics Concern ??? Not on file Social History Narrative ??? Not on file Social Determinants of Health Financial Resource Strain: Low Risk ??? Difficulty of Paying Living Expenses: Not very hard Food Insecurity: No Food Insecurity ??? Worried About Running Out of Food in the Last Year: Never true ??? Ran Out of Food in the Last Year: Never true Transportation Needs: No Transportation Needs ??? Lack of Transportation (Medical): No ??? Lack of Transportation (Non-Medical): No Physical Activity: Not on file Housing Stability: Low Risk ??? Unable to Pay for Housing in the Last Year: No ??? Number of Places Lived in the Last Year: 1 ??? Unstable Housing in the Last Year: No Significant Family History: Family History Problem Relation Age of Onset ??? Breast Cancer Neg Hx Pertinent ROS: as per HPI Labs: Lab Results Component Value Date WBC 7.6 10/26/2021 HCT 43.4 10/26/2021 PLATELET 339 10/26/2021 BUN 19 (H) 10/26/2021 CREATININE 0.74 10/26/2021 ALKPHOS 117 (H) 10/26/2021 AST 23 10/26/2021 ALBUMIN 4.6 10/26/2021 BILITOT 0.2 10/26/2021 ALT 35 (H) 10/26/2021 PROT 7.2 10/26/2021 K 4.2 10/26/2021 Imaging: Physical Exam: Pending (to be performed in angio the day of procedure) ASA: Pending (to be assessed in angio the day of procedure) Mallampati Class: Pending (to be assessed in angio the day of procedure) Assessment: 56 y.o. female presenting to IR for CATHERINE nodule biopsy. Past medical history is significant for Asthma, COPD, and right breast carcinoma. On follow up PET/CT of 08/11/22 a solitary 1.1 LULmetabolically active nodule was discovered. Request is for percutaneous biopsy for histopathologic diagnosis and staging. The target lesion appears amenable to percutaneous access. Patient has underlying emphysema which increases the likelihood of pneumothorax / pleural catheter placement. No antiplatelets. No anticoagulants. Laboratories outdated. Will obtain platelet count and coagulation panel on day of procedure. Patient appears to be a candidate for moderate sedation. Reviewed with Attending: Dr. Beltrán Plan: Planned procedure: Left Upper Lobe Lung Nodule Biopsy Labs to be performed day of procedure: PLT; Coags Sedation: Moderate (Conscious sedation) Prophylactic antibiotic : None Contrast: No contrast Additional medications for procedure: Lidocaine Planned access site: Left Posterior Thorax Position: Prone Consent: Pending Medications to discontinue (and days held): None Case Urgency:: G- Other (non E or F elective cases) 08/16/2022 documented in this encounter Plan of Treatment Upcoming Encounters Date Type Department Care Team (Late st Contact Info) Description 01/11/2025 1:00 PM EDT Office Visit Radiation Oncology at [address] [phone] Misty Llanos MD [facility] RADIATION ONCOLOGY [place] [id number] 08/23/2025 1:10 PM EST Appointment Mammography/DXA at [place] [phone] Jody Tam, [facility] [place] [address] 08/23/2025 2:10 PM EST Office Visit [place] [phone] Jody Tam [facility] [place] [address] documented as of this encounter Visit Diagnoses Not on filedocumented in this encounter Care Teams Director Of Consumer Marketing Relationship Specialty Start Date End Date Brittany Wynne MD [address] [place] [address] [place] [address] PCP - General Family Medicine 10/23/21 documented as of this encounter
--- OUTSIDE RECORDS SUMMARY | 2024-10-26 16:32 | XMS_ITS | Encounter Summary ---
[facility] [place] [address] Care Team Providers Care Cooler Service Supervisor Name Role Phone Brittany Wynne MD Primary Care Provider + Reason for Visit * Reason Comments Shortness of Breath * Auth/Cert (Routine) Specialty Diagnoses / Procedures Referred By Contac t Referred To Contact Diagnoses Pneumothorax after biopsy Procedures ER [place]PI [place] [address] [facility] Referral ID Status Reason Start Date Expiration Date Visits Re quested Visits Authorized [id number] 1 1 Encounter Details Date Type Department Care Team (Latest Contact Info) Description 09/03/2022 10:44 AM EST - 09/08/2022 4:26 PM EST Hospital Encounter Medical [place] [address] Rosa Bassett MD [facility] [place] [address] [place] [address] Marla Borjas MD [facility] [place] [address] Kyler Choudhury MD [facility] [place] [address] [place] [address] Pneumothorax after biopsy (Primary Dx); Pneumothorax, unspecified type; Tachycardia Discharge Disposition: Home Social History Tobacco Use [...] Sign Reading Time Taken Comments Blood Pressure 92/73 09/08/2022 12:14 PM EST Pulse 102 09/08/2022 12:00 AM EST Temperature 36.9 ??C (98.4 ??F) 09/08/2022 12:[address] Respiratory Rate 16 09/08/2022 9:32 AM EST Oxygen Saturation 96% 09/08/2022 1:07 PM EST Inhaled Oxygen Concentration - - Weight 64 kg (141 lb 1.5 oz) 09/08/2022 12:00 AM EST Height 149.9 cm (4' 11) 09/05/2022 1:00 PM EST Body Mass Index 28.5 09/05/2022 1:00 PM EST documented in this encounter Discharge Summaries * Reza Novak MD - 09/08/2022 12:54 PM EST Images from the original note were not included. Hospital Discharge Summary Patient Name: Gena Morales Patient Age: 56 y.o. Birthdate: 1965 Admit date: 09/03/2022 Discharge date and time: 09/08/2022 Attending Physician: Raj Burnett MD Code Status: Modified Code Status, DNR, amenable to trial of intubation ID: Gena Morales is a 56 y.o. female w/ PMH of metatatic right breast cancer, asthma, and COPD presenting with acute respiratory distress in the setting of a recent pulmonary percutaneous biopsy with concern for pneumothorax. ?? Follow-up Recommendations for Providers: - Lung biopsy with inflammatory changes but no evidence of malignancy. Patient to follow-up with Oncology team to discuss next steps. - No changes made to current home regimen. Please adjust as clinically indicated. - Please consider clinical assessment in 1-2 weeks to assess continued resolution of PTX and subcutaneous emphysema. - Please reassess tachycardia (suspected multifactorial in setting of PTX, anxiety, and pneumomediastinum) as clinically indicated. Discharge Diagnoses (Hospital Problems) and Secondary Diagnoses (Chronic Problems): Active Hospital Problems Diagnosis ??? Pneumothorax after biopsy Resolved Hospital Problems No resolved problems to display. Active Non-Hospital Problems Diagnosis ??? Malignant neoplasm of right breast in female, estrogen receptor positive 09/07/[address] [facility], [place]: ER/AK+/HER2- right breast IDC, low grade, luminal A features Screening mammogram detected No prior call backs or biopsies 1.1 cm suspicious mass in LOQ, bx 09/07/21 at [facility] complicated by rib trauma and pain. Diagnostic images with calcifications at 0600, stable compared to prior MRI without other abnormalities Right lumpectomy IDCA grade 1 8.5 mm + perineural invasion, 0/5 LN + pT1bN0 Stage IA RT completed 02/19/22 Dexa 06/27/22 Procedures: - Lung biopsy (09/03) - Chest tube placement (09/03) - Chest tube removal (09/07) History of Presentation (per 09/03/2022 Admission H&P): Patient with Stage 1A ER/AK +, HER2 - , right sided breast cancer s/p right partial mastectomy and sentinel node excision on 11/20. Patient had a [address] on 07/09/22 which showed a 12mm CATHERINE speculated nodule, 4x6 mm RML nodule, and a 4mm posterior RL base nodule. Followed up PET/CT was done on08/11/22 that showed a solitary 1.1 CATHERINE metabolically active nodule was discovered after which it was planned for percutaneous biopsy for histopathologic diagnosis and staging. During the biopsy, patient developed a large pneumothorax and became hypoxic to the low 80s at which point a pleural catheter was placed with improvement of hypoxia and noticeable decrease in the pneumothorax. Patient then began to tripod and required a non-rebreather to maintain sats in the 90s. In the ED, patient given ipratropium-albuterol nebulizer and methylprednisolone 125 mg x 1 with improvement of respiratory distress. ?? Currently, patient only complaining of some mild nausea as well as some pain around her insertion site. Pain currently rated a 5/10, from an 8/10 on presentation, described as a gas bubble. The pain is unaffected by inspiration or movement stating it, occurs all the time. Otherwise denies otherchest pain, palpitations, headache, changes in vision/hearing, abdominal pain, vomiting, fever, or new weakness/changes in sensation. MICU HPI (09/05): Patient seen and examined on admission to the ICU. Gena Morales is a 56 y.o. female with breastcancer diagnosed 2020 s/p martial mastectomy and radiation therapy (ending 02/2022), COPD, admitted with complication of left pneumothorax following IR biopsy of pet-avid dominant CATHERINE lung nodule on 09/03/2022. Lung nodule was seen on CT on 07/09/2022. A left posterior chest pigtail drain was placed on 09/03/2022 for decompression of the large and symptomatic pneumothorax, however there was a persistent air leak while on suction. She was treated with solumedrol and duonebs for possible COPD exacerbation on admission as well. Early this morning she developed some subcutaneous emphysema on chest. She returned to IR suite this afternoon for a blood patch procedure however this was aborted when she developed hypertension to 230s/140, tachycardia, then dyspnea and hypoxia requiring NRB; hypertension, tachycardia and oxygenation all improved some with labetalol, though she still reports some dyspnea. A little bit later she developed increased swelling in chest/face/neck with finding of increased subcutaneous crepitus, though she reports dyspnea is a bit better; at that time we found that her chest pigtail drain was kinked and when unkinking it saw release of some air. She is nauseous, butdenies chest pain. Hospital Course: Gena Morales was admitted to the Medicine Service on 09/03/2022. The following acute and chronic medical issues were identified during this phase of their hospitalization, and managed as summarized below by problem: ?? #COPD #L lung mass #Pneumothroax #Subcutaneous emphysema #Pneumomediastinum #Tachycardia #Anxiety Patient with COPD and history of metatatic right breast cancer initially presenting for scheduled percutaneous biopsy of L lung mass, with procedure complicated by L pneumothorax. Chest tube placed by IR immediately following discovery, with improvement in respiratory status. Patient monitored withserial CXR over several days demonstrating progressive resolution of PTX, with remnant apical component. Budesonide, albuterol, and DuoNebs nebulizers provided in place of home inhaled therapy. Guaifenesin and montelukast continued. On HD3, patient was noted to have new crepitus over the L shoulder, with subcutaneous emphysema noted over L apex and L chest wall. Plan was initially made for blood patch with IR, but upon arrival in Angio suite, patient was noted to be profoundly dyspneic, with tachycardia to 130s and SBP >200. Procedure aborted. She received labetalol with gradual improvement in hemodynamics, and breathing improved with several nebs. However, approximately 1 hour following this patient was noted to be developing facial plethora, voice change, and recurrent dyspnea. No chest pain. Examination notable fordiffuse crepitus over chest and upper back, crossing midline. Her chest tube was found to be kinked, and it was suspected that blockage and possible displacement contributed to air tracking into subcutaneous space. Blockage was splinted with immediate output and some improvement in dyspnea. CT chest confirmed widespread subcutaneous emphysema of chest and neck, in addition to pneumomediastinum. Patient was then transferred to MICU for closer evaluation overnight and re-downgraded after demonstrating clinical stability. After successful water seal test 09/07, chest tube was removed, with 2-hour post-removal CXR demonstrating ongoing complete resolution of PTX. Hemoptysis attributed to post-procedural complications and improved over course of admission. Subcutaneous emphysema continued to improve with oxygen therapy. Ongoing tachycardia attributed to air tracking in mediastinum, anxiety, recent PTX, and underlying COPD. Anxiety managed with lorazepam and breathing exercises. No clinical evidence of DVT and other than scant hemoptysis attributed toprocedural complications as above, no other clinical signs to suggest PE. She was discharged with instructions to resume her outpatient COPD regimen, continue home O2 as before, and follow-up with outpatient providers. She will see Oncology team within the month to discuss next steps following biopsy, which showed inflammatory changes without evidence of malignancy. Physical Exam: Vital Signs: Last value Range last 24 hrs Temperature Temp: 36.9 ??C (98.4 ??F) Temp: [36.3 ??C (97.4 ??F)-37.7 ??C (99.9 ??F)] Heart Rate Heart Rate: (!) 102 Heart Rate: [102-121] Blood Pressure BP: 92/73 BP: (92-131)/(60-80) Respiratory Rate Resp: 16 Resp: [16-22] SpO2 SpO2: 91 % SpO2: [91 %-95 %] Gen: Alert, conversationally oriented, in NAD. HEENT: Facial plethora with bogginess over throat. Anicteric. Non-injected. Oropharynx nonerythematous. No exudates. Uvula midline and palate rises symmetrically. CV: RRR. Normal S1 and S2. No M/R/G. Pulm:??On NC. Improved aeration of L apex.??L chest tube in place, no soakage of dressing.??No W/R/R Skin: Diffuse crepitus noted over precordium, shoulders, and upper back Abd: Normoactive bowel sounds. Soft, nondistended, nontender. BS+ Ext: No edema, clubbing, or cyanosis. Neuro: Alert and appropriate. Non-focal. Grossly intact. Psych: Cooperative, pleasant Important Studies and Lab Data: Recent Labs 09/08/22 0040 09/07/22 0214 09/06/22 0200 WBC 8.0 8.5 8.9 HGB 12.3 11.9 12.4 HCT 36.4 35.2* 37.0 PLATELET 262 240 254 Recent Labs 09/08/22 0040 09/07/22 0214 09/06/22 0200 NA 138 141 140 K 4.3 3.4* 4.3 CL 104 104 104 CO2 23 25 26 BUN 16 14 14 CREATININE 0.65* 0.68* 0.56* MAGNESIUM 0.79 0.83 0.75 PHOS 3.4 3.7 3.9 Recent Labs 09/03/22 1100 BILITOT <0.2* AST 25 ALT 30 ALKPHOS 98 Recent Labs 09/03/22 0819 INR 1.0 Pathology: DIAGNOSIS Left upper lung nodule, biopsy: - Pulmonary parenchyma with patchy nonspecific chronic inflammation and scar. - There is no evidence of malignancy. (see Discussion.) Electronically signed by: MD Marcel, George Wang Verified: 09/04/2022 10:21 DISCUSSION Clinical correlation is required to determine whether this biopsy is litigation claim representative of a clinically suspected lesion. SPECIMEN(S) SUBMITTED A - Left Upper Lung Nodule, biopsy (Multiple) Pertinent radiology/diagnostic studies: Results for orders placed or performed during the hospital encounter of 09/03/22 XR Chest One View (Exam End: 09/03/2022 2:15 PM) Impression Decreased size of now small left apical pneumothorax. Thank you for letting us participate in the care of this patient. If you are a health care provider and have any questions regarding this report, please contact the number below. For patients who have questions please contact the health care technician that requested your imaging first. Chest One View (Exam End: 09/04/2022 5:16 AM) Impression 1. Unchanged small left apical pneumothorax. 2. Similar appearance of the left upper lobe spiculated nodule. 3. Decreased reticular opacities throughout the left lung consistent with reexpansion edema. Thank you for letting us participate in the care of this patient. If you are a health care provider and have any questions regarding this report, please contact the number below. For patients who have questions please contact the health care technician that requested your imaging first. Chest One View (Exam End: 09/05/2022 6:38 AM) Impression Stable small left apical pneumothorax. Worsening chest wall subcutaneous emphysema. Thank you for letting us participate in the care of this patient. If you are a health care provider and have any questions regarding this report, please contact the number below. For patients who have questions please contact the health care technician that requested your imaging first. Chest One View (Exam End: 09/04/2022 12:08 PM) Impression Stable to minimally decreased small left apical pneumothorax. Unchanged left subcutaneous emphysema. Left-sided chest tube remains in place. Thank you for letting us participate in the care of this patient. If you are a health care provider and have any questions regarding this report, please contact the number below. For patients who have questions please contact the health care technician that requested your imaging first. Chest One View (Exam End: 09/05/2022 5:53 PM) Impression Enlarging left pneumothorax. Unexpected finding. Thank you for letting us participate in the care of this patient. If you are a health care provider and have any questions regarding this report, please contact the number below. For patients who have questions please contact the health care technician that requested your imaging first. Electronically signed by: [facility]ine [facility] ([phone]), at 09/05/2022 6:[address] Chest wo Contrast (Generic) (Exam End: 09/05/2022 8:32 PM) Impression * Intrafissural termination of posterior approach LEFT pigtail catheter, with a trace pneumothorax anteriorly; no catheter kink appreciated although the metallic marker is just at the edge of the allen-pleural thoracic cage. * Extensive pneumomediastinum, with large amount of external soft tissue air. * Probable pulmonary edema most apparent in the CATHERINE; more prominent superimposed patchy opacities could be infectious/inflammatory. Thank you for letting us participate in the care of this patient. If you are a health care provider and have any questions regarding this report, please contact the number below. For patients who have questions please contact the health care technician that requested your imaging first. Chest One View (Exam End: 09/06/2022 11:14 AM) Impression Resolution of LEFT pneumothorax Thank you for letting us participate in the care of this patient. If you are a health care provider and have any questions regarding this report, please contact the number below. For patients who have questions please contact the health care technician that requested your imaging first. Chest One View (Exam End: 09/06/2022 2:21 PM) Impression No residual left pneumothorax. I have personally reviewed the image(s) and the resident's interpretation and agree with the findings, Yu Roblero MD at 09/06/2022 3:05 PM Thank you for letting us participate in the care of this patient. If you are a health care provider and have any questions regarding this report, please contact the number below. For patients who have questions please contact the health care technician that requested your imaging first. Chest One View (Exam End: 09/07/2022 10:42 AM) Impression Persistent extensive bilateral subcutaneous emphysema. Slightly increased pneumomediastinum. No pneumothorax is seen. Thank you for letting us participate in the care of this patient. If you are a health care provider and have any questions regarding this report, please contact the number below. For patients who have questions please contact the health care technician that requested your imaging first. Chest One View (Exam End: 09/07/2022 1:35 PM) Impression No appreciable pneumothorax. Thank you for letting us participate in the care of this patient. If you are a health care provider and have any questions regarding this report, please contact the number below. For patients who have questions please contact the health care technician that requested your imaging first. Discharge Conditions/Prognosis: Upon discharge the pt is hemodynamically stable, fully ambulatory, requiring supplemental oxygen as before hospitalization, afebrile and pain free. Discharge to: Home without services. Discharge Medications: Your Medications Continued medications with new dosing Dose Details albuteroL (2.5 mg/3 mL) (0.083 %) Nebu Commonly known as: Proventil, Ventolin Take 3 mLs by nebulization every 4 hours as needed for Wheezing or Shortness of Breath. What changed: Another medication with the same name was removed. Continue taking this medication, and follow the directions you see here. 3 mL Refills: 0 Continued medications, unchanged Dose Details acetaminophen 500 mg Tab Commonly known as: Tylenol Take 1,000 mg by mouth every 6 hours as needed for Pain. 1,000 mg Refills: 0 Breztri Aerosphere 160-9-4.8 mcg/actuation Hfaa Inhale 2 puffs into the lungs 2 times daily. Generic drug: imymivanav-yphkvksa-sijroshnig 2 puff Refills: 0 guaiFENesin ER 600 mg Ta12 Commonly known as: Mucinex Take 1,200 mg by mouth 2 times daily as needed for Congestion. 1,200 mg Refills: 0 ibuprofen 200 mg Tab Commonly known as: Advil Take 200 mg by mouth every 6 hours as needed for Pain. 200 mg Refills: 0 ipratropium-albuteroL 0.5 mg-3 mg(2.5 mg base)/3 mL Nebu Commonly known as: Duoneb Take 3 mLs by nebulization every 4 hours as needed. 3 mL Refills: 0 loratadine 10 mg Tab Commonly known as: Claritin Take 10 mg by mouth daily. 10 mg Refills: 0 montelukast 10 mg Tab Commonly known as: Singulair Take 10 mg by mouth nightly. 10 mg Refills: 0 STOPPED Medications Advair HFA 230-21 mcg/actuation Hfaa Generic drug: fluticasone propion-salmeteroL budesonide 0.5 mg/2 mL Nbsp Commonly known as: Pulmicort CREAM BASE TOP levoFLOXacin 750 mg Tab Commonly known as: Levaquin Spiriva with HandiHaler 18 mcg Cpdv Generic drug: tiotropium Trelegy Ellipta 200-62.5-25 mcg Generic drug: sjhhfgbtrbi-fdvaitcpzbts-dznwugygbs Instructions Given to Patient at Discharge: Patient Instructions Instructions on Discharge to Home Why you were hospitalized - You were hospitalized for a pneumothorax (collapsed lung) after a biopsy of your lung mass. This was managed with the placement of a chest tube, which was removed after the pneumothorax had resolved. The subcutaneous emphysema (crackles) over your chest and back, caused by air tracking into your soft tissues, will continue to resolve over the next couple weeks. Your hemoptysis (bloody sputum) will also improve over time. Your biopsy showed inflammation but no evidence of cancer. You should discuss these results with your Oncology team to determine next steps. Call your doctor or seek medical attention if you develop the following - Continued or worsening bloody sputum or crackles under your skin after 1-2 weeks, chest pain, shortness of breath, feeling dizzy upon standing, passing out, diarrhea, constipation lasting longer than 2 days, fevers (temperature over 100.3), chills, abdominal pain, vomiting, difficulty or discomfort when urinating, bloody orblack bowel movements, or any other acute or concerning symptom. Activity level - No restrictions Diet - No change in previous diet Driving - As before hospitalization Shower/Bath - Permitted Wound Care - Please keep former chest tube site clean and dry. Home Oxygen therapy - As before hospitalization. Your Discharge Medication List We have not made any changes to your previous medication regimen. Please discuss with your outpatient providers whether any adjustments should be made moving forward. Your Medications Continued medications with new dosing Dose Details albuteroL (2.5 mg/3 mL) (0.083 %) Nebu Commonly known as: Proventil, Ventolin Take 3 mLs by nebulization every 4 hours as needed for Wheezing or Shortness of Breath. What changed: Another medication with the same name was removed. Continue taking this medication, and follow the directions you see here. 3 mL Refills: 0 Continued medications, unchanged Dose Details acetaminophen 500 mg Tab Commonly known as: Tylenol Take 1,000 mg by mouth every 6 hours as needed for Pain. 1,000 mg Refills: 0 Breztri Aerosphere 160-9-4.8 mcg/actuation Hfaa Inhale 2 puffs into the lungs 2 times daily. Generic drug: hvhnrlnlbc-mtditikh-evrcsceqex 2 puff Refills: 0 guaiFENesin ER 600 mg Ta12 Commonly known as: Mucinex Take 1,200 mg by mouth 2 times daily as needed for Congestion. 1,200 mg Refills: 0 ibuprofen 200 mg Tab Commonly known as: Advil Take 200 mg by mouth every 6 hours as needed for Pain. 200 mg Refills: 0 ipratropium-albuteroL 0.5 mg-3 mg(2.5 mg base)/3 mL Nebu Commonly known as: Duoneb Take 3 mLs by nebulization every 4 hours as needed. 3 mL Refills: 0 loratadine 10 mg Tab Commonly known as: Claritin Take 10 mg by mouth daily. 10 mg Refills: 0 montelukast 10 mg Tab Commonly known as: Singulair Take 10 mg by mouth nightly. 10 mg Refills: 0 STOPPED Medications Advair HFA 230-21 mcg/actuation Hfaa Generic drug: fluticasone propion-salmeteroL budesonide 0.5 mg/2 mL Nbsp Commonly known as: Pulmicort CREAM BASE TOP levoFLOXacin 750 mg Tab Commonly known as: Levaquin Spiriva with HandiHaler 18 mcg Cpdv Generic drug: tiotropium Trelegy Ellipta 200-62.5-25 mcg Generic drug: pvkumfudmmw-daujhsxqqzen-nnnyhghvuk Follow-up: Future Appointments Date Time Provider Department Center 09/17/2022 1:30 PM Misty Llanos MD [facility] We would encourage you to make an appointment with your PCP and [employer] Capture Power Plant Engineer (if you have one) at your first convenience, to determine if any of your COPD medications should be adjusted. Please calltheir office(s) within the next week to ensure close follow-up. Your Inpatient Medical Team at [facility] Name(s) of your inpatient provider(s): Raj Burnett MD, Reza Novak MD, Wolfgang Saxena MD. Your Primary Care Provider: Brittany Wynne MD [phone] For questions regarding this document or issues relating to this hospitalization on the Medical Service, please contact your inpatient physician through the [facility] Senior Examiner . Issues afterhours and on weekends will be handled by the Hospitalist staff on-call. General Instructions None Future Appointments and Orders Future Appointments and Orders Future Appointments Provider Department Dept Phone 09/17/2022 1:30 PM Misty Llanos MD Radiation Oncology at [facility] Arrive at: [facility] door at end of hallway [phone] Provider Contact Information: Brittany Wynne MD [address] [place] [address] / [facility] [id number] Discharge References/Attachments: Discharge References/Attachments None Reza Novak MD PGY-2, Internal Medicine 09/08/22 documented in this encounter Discharge Instructions * Patient Instructions* Reza Novak MD - 09/08/2022 12:42 PM EST Instructions on Discharge to Home Why you were hospitalized - You were hospitalized for a pneumothorax (collapsed lung) after a biopsy of your lung mass. This was managed with the placement of a chest tube, which was removed after the pneumothorax had resolved. The subcutaneous emphysema (crackles) over your chest and back, caused by air tracking into your soft tissues, will continue to resolve over the next couple weeks. Your hemoptysis (bloody sputum) will also improve over time. Your biopsy showed inflammation but no evidence of cancer. You should discuss these results with your Oncology team to determine next steps. Call your doctor or seek medical attention if you develop the following - Continued or worsening bloody sputum or crackles under your skin after 1-2 weeks, chest pain, shortness of breath, feeling dizzy upon standing, passing out, diarrhea, constipation lasting longer than 2 days, fevers (temperature over 100.3), chills, abdominal pain, vomiting, difficulty or discomfort when urinating, bloody orblack bowel movements, or any other acute or concerning symptom. Activity level - No restrictions Diet - No change in previous diet Driving - As before hospitalization Shower/Bath - Permitted Wound Care - Please keep former chest tube site clean and dry. Home Oxygen therapy - As before hospitalization. Your Discharge Medication List We have not made any changes to your previous medication regimen. Please discuss with your outpatient providers whether any adjustments should be made moving forward. Your Medications Continued medications with new dosing Dose Details albuteroL (2.5 mg/3 mL) (0.083 %) Nebu Commonly known as: Proventil, Ventolin Take 3 mLs by nebulization every 4 hours as needed for Wheezing or Shortness of Breath. What changed: Another medication with the same name was removed. Continue taking this medication, and follow the directions you see here. 3 mL Refills: 0 Continued medications, unchanged Dose Details acetaminophen 500 mg Tab Commonly known as: Tylenol Take 1,000 mg by mouth every 6 hours as needed for Pain. 1,000 mg Refills: 0 Breztri Aerosphere 160-9-4.8 mcg/actuation Hfaa Inhale 2 puffs into the lungs 2 times daily. Generic drug: qgfznxducc-kozwnwah-zgtrkeddwh 2 puff Refills: 0 guaiFENesin ER 600 mg Ta12 Commonly known as: Mucinex Take 1,200 mg by mouth 2 times daily as needed for Congestion. 1,200 mg Refills: 0 ibuprofen 200 mg Tab Commonly known as: Advil Take 200 mg by mouth every 6 hours as needed for Pain. 200 mg Refills: 0 ipratropium-albuteroL 0.5 mg-3 mg(2.5 mg base)/3 mL Nebu Commonly known as: Duoneb Take 3 mLs by nebulization every 4 hours as needed. 3 mL Refills: 0 loratadine 10 mg Tab Commonly known as: Claritin Take 10 mg by mouth daily. 10 mg Refills: 0 montelukast 10 mg Tab Commonly known as: Singulair Take 10 mg by mouth nightly. 10 mg Refills: 0 STOPPED Medications Advair HFA 230-21 mcg/actuation Hfaa Generic drug: fluticasone propion-salmeteroL budesonide 0.5 mg/2 mL Nbsp Commonly known as: Pulmicort CREAM BASE TOP levoFLOXacin 750 mg Tab Commonly known as: Levaquin Spiriva with HandiHaler 18 mcg Cpdv Generic drug: tiotropium Trelegy Ellipta 200-62.5-25 mcg Generic drug: gyntggqbdob-pewgytmzhqjb-mlbmaysdeh Follow-up: Future Appointments Date Time Provider Department Center 09/17/2022 1:30 PM Misty Llanos MD [facility] Rad Off [facility] We would encourage you to make an appointment with your PCP and [employer] Engineer (if you have one) at your first convenience, to determine if any of your COPD medications should be adjusted. Please calltheir office(s) within the next week to ensure close follow-up. Your Inpatient Medical Team at [facility] Name(s) of your inpatient provider(s): Raj Burnett MD, Reza Novak MD, Wolfgang Saxena MD. Your Primary Care Provider: Brittany Wynne MD [phone] For questions regarding this document or issues relating to this hospitalization on the Medical Service, please contact your inpatient physician through the [facility] Senior Examiner . Issues afterhours and on weekends will be handled by the Hospitalist staff on-call. documented in this encounter Medications at Time of Discharge Medication Sig Dispensed Refills Start Date End Date albuteroL (Proventil, Ventolin) (2.5 mg/3 mL) (0.083 [...] needed. 10/07/2021 documented as of this encounter Progress Notes * Raj Burnett MD - 09/08/2022 4:26 PM EST Hospital Medicine - Attending Day of Discharge Documentation Discharge diagnosis Active Hospital Problems Diagnosis ??? Pneumothorax after biopsy Resolved Hospital Problems No resolved problems to display. Secondary Issues Active Non-Hospital Problems Diagnosis ??? Malignant neoplasm of right breast in female, estrogen receptor positive I have personally seen and examined the patient and they are ready for discharge. I spent >30 minutes (Day of Discharge Code 94015) involved in the final examination of the patient, discussion of the hospital stay, instructions for continuing care to all relevant caregivers, and preparation of discharge records, prescriptions and referral forms. Plans ? Discharge to home ? Follow-up scheduled with rad onc ? Please see the Discharge Summary for complete details of any medication changes and additional plans. * Roro Mcduffie RCP - 09/08/2022 1:57 PM EST 09/08/22 1307 Oxygen Therapy O2 Device NC O2 Flow Rate (L/min) 2 L/min SpO2 96 % Pt on 2L david well Pt has orders for duoneb q6, albuterol prn and pulmicort 2 xd Duoneb treatment david well Pulmicort was given before my shift, pt stated she did not david it, Pt is suppose to go home this afternoon * Edel Rodas, OT - 09/07/2022 2:15 PM EST Occupational Therapy Evaluation Patient profile: Gena Morales is a 56 y.o.??female??with PMH of metatatic right breast cancer, asthma, and COPD presenting with acute respiratory distress in the setting of a recent pulmonary percutaneous biopsy with a??pneumothorax, on 09/05/22.??CT showing widespread subcutaneous emphysema and pneumomediastinum. Pt was placed on water seal, 09/07/22. Pt has been tachycardic and now requiring continuous supplemental O2. Past Medical History: Diagnosis Date ??? Asthma ??? COPD (chronic obstructive pulmonary disease) ??? Malignant neoplasm of right breast in female, estrogen receptor positive 09/29/2021 09/07/21 [facility], [place]: ER/AK+/HER2- right breast IDC, low grade Past Surgical History: Procedure Laterality Date ??? APPENDECTOMY ??? CHOLECYSTECTOMY ??? CT GUIDED BIOPSY LUNG 09/03/2022 CT Guided Biopsy Lung 09/03/2022 lFako Beltrán, DO [facility] RAD CT SCAN ??? CT GUIDED DRAIN CHEST TUBE/PLEURAL DRAIN 09/03/2022 CT Guided Drain Chest Tube/Pleural Drain 09/03/2022 Flako Beltrán, DO [facility] RAD CT SCAN ??? MAMMO US NEEDLE LOCALIZATION RIGHT Right 11/20/2021 Mammo US Needle Localization Right 11/20/2021 Sammie Chong MD [facility] RAD MAMMOGRAPHY ??? PRO BX/REMV, LYMPH NODE, DEEP AXILL Right 11/20/2021 BIOPSY OR EXCISION OF LYMPH NODE(S), OPEN, DEEP AXILLARY NODE(S) (WRVU 6.43) performed by Dylan Kendrick MD at [facility] ??? PRO INTRAOP SENTINEL LYMPH ID W/DYE INJECTION Right 11/20/2021 INTRAOPERATIVE ID (MAPPING) SENTINEL LYMPH NODE,INCLUDES INJECTION (WRVU 2.5) performed by Dylan Kendrick MD at [facility] ??? PRO MASTECTOMY PARTIAL Right 11/20/2021 MASTECTOMY PARTIAL (WRVU 10.13) performed by Dylan Kendrick MD at [facility] ??? TUBAL LIGATION Social History: Patient lives with her son, ltzfrocl-yj-dmy, and granddaughter. She is set up on the first floor and there are 2 steps to enter the home. DME: supplemental O2, cane Baseline ADL/Mobility: independent with ADL, ambulates without a device. She recently started usingO2 during activity (2L). Family does most of the cooking and cleaning for pt. Pt reports being mostly sedentary. Precautions/Special Considerations: supplemental O2 Activity order: activity as tolerated Subjective: I want a small oxygen concentrator at home, mine is like lugging around a suitcase. Objective: Seen today for OT evaluation. ??? Cognitive Status/Behavior: o Behavior / Mood: alert and cooperative o Alert and oriented to: person, place, time and situation o Follows commands: multi step o Attention: WFL o Safety awareness: WFL ??? Musculoskeletal: o ROM: grossly WFL o Strength: grossly 4/5 ??? Activities of Daily Living: o Self-feeding: n/a - independent o Grooming: seated with set up o Dressing: mod I with figure 4 position o Bathing: educated pt re: benefits of shower seat for energy conservation purposes, also talked about using O2 in shower if she plans to stand for task o Toileting: not observed - anticipate SBA ??? Functional Mobility: o Sit to stand: supervision o Ambulation: ~100 ft with SBA using rolling O2 cart o Stand to sit: supervision ??? Balance: o Sitting balance: good o Standing balance: good with O2 cart ??? IADL???s: Assistance available to patient. ??? Vitals: o SpO2 94-97% on 2L during activity o Educated pt re: KELLY scale of RPE and using it as a guide to pace herself ??? Pain: none reported Education: Assistive device/technique, ADL, Activity pacing/Energy conservation, Home Management and Recommendations Patient status, treatment, and mobility recommendations discussed with nursing. Assessment: Pt has been seen for occupational therapy evaluation. Gena Morales presents with the following performance skill deficits and client factors: decreased activity tolerance, deconditioning and mild QUINTANILLA. Pt appears to be close to her recent baseline. Provided extensive education re: activity pacing, energy conservation, using the KELLY to guide rest breaks, benefits of DME for showering. Anticipate that pt will return home with assistance once medically ready. Do not anticipate further OT needs while hospitalized. Equipment needs at discharge: shower seat (pt reports she'll think about it) Anticipated Discharge Disposition (OT): home with supervision Other Recommendations: ?? OOB to chair for all meals ?? Ambulate as tolerated SBA and O2 ?? Encourage participation in ADL's by providing set up A on tray table and physical assist only asneeded Plan: Therapy Frequency (OT): evaluation only Total Minutes, Occupational Therapy: 25 (eval [id number]) 2017 OT Evaluation Code Rationale: ?? Diagnosis & Pertinent Co-Morbidities affecting Plan of Care: see PMHx ?? Occupational Profile & Client History: Brief Expanded Extensive X ?? Assessment of Occupational Performance: 1-3 performance deficits 3-5 performance deficits X 5 + performance deficits ?? Clinical Decision Making: Low Moderate High X Clinical decision making of low complexity using standardized patient assessment instrument and measurable assessment of functional outcome. Pager: [phone] EDEL RODAS OT 09/07/2022 Occupational Therapy Rehabilitation Department * Maliha-Travis Galloway, PT - 09/07/2022 10:49 AM EST Physical Therapy Evaluation Patient profile: 56 y.o. female with PMH of metatatic right breast cancer, asthma, and COPD presenting with acute respiratory distress in the setting of a recent pulmonary percutaneous biopsy with a??pneumothorax, on09/05/22. CT showing widespread subcutaneous emphysema and pneumomediastinum. Pt was placed on water seal, 09/07/22. Pt has been tachycardic and now requiring continuous supplemental O2. ?? Patient with the following active problems: Past Medical History: Diagnosis Date ??? Asthma ??? COPD (chronic obstructive pulmonary disease) ??? Malignant neoplasm of right breast in female, estrogen receptor positive 09/29/2021 09/07/[address] [facility], [place]: ER/AK+/HER2- right breast IDC, low grade Past Surgical History: Procedure Laterality Date ??? APPENDECTOMY ??? CHOLECYSTECTOMY ??? CT GUIDED BIOPSY LUNG 09/03/2022 CT Guided Biopsy Lung 09/03/2022 Flako Beltrán, DO [facility] RAD CT SCAN ??? CT GUIDED DRAIN CHEST TUBE/PLEURAL DRAIN 09/03/2022 CT Guided Drain Chest Tube/Pleural Drain 09/03/2022 Flako Beltrán, DO [facility] RAD CT SCAN ??? MAMMO US NEEDLE LOCALIZATION RIGHT Right 11/20/2021 Mammo US Needle Localization Right 11/20/2021 Sammie Chong MD [facility] RAD MAMMOGRAPHY ??? PRO BX/REMV, LYMPH NODE, DEEP AXILL Right 11/20/2021 BIOPSY OR EXCISION OF LYMPH NODE(S), OPEN, DEEP AXILLARY NODE(S) (WRVU 6.43) performed by Dylan Kendrick MD at [facility] ??? PRO INTRAOP SENTINEL LYMPH ID W/DYE INJECTION Right 11/20/2021 INTRAOPERATIVE ID (MAPPING) SENTINEL LYMPH NODE,INCLUDES INJECTION (WRVU 2.5) performed by Dylan Kendrick MD at [facility] ??? PRO MASTECTOMY PARTIAL Right 11/20/2021 MASTECTOMY PARTIAL (WRVU 10.13) performed by Dylan Kendrick MD at [facility] ??? TUBAL LIGATION Active Non-Hospital Problems Diagnosis ??? Malignant neoplasm of right breast in female, estrogen receptor positive Social History: Home set-up: x 1.5 years. Son, DIL and grand daughter moved in with pt to help care for meka needed since she had breast cancer and worsening respiratory status. Pt's living area is on the ground floor Bathroom Set-up: Has own bedroom with walk in shower. Stairs: 2 small stairs to enter home with house for support, no railing. Baseline Mobility: Pt walks without DME. She uses supplemental O2 intermittently at home, if SPO2 <88%. Pt monitors her SPO2. Her family tends to cooking and cleaning. Pt can drive but has not recently. She mostly watches TV and reads. Pt is alone during the day. Equipment at home: Supplemental O2. Recommended to pt that she get a shower seat and hand held shower to decrease fatigue when showering. Fall history: none Precautions/Special Considerations: No BP RUE; L CT to water seal; supplemental O2; telemetry. Activity Orders: activity as tolerated Diet: regular Mobility and Positioning Recommendations: ?? Pt. to utilize Triangular O2 cart and supervision to cgaambulation and transfers with nursing. ?? Please encourage up to chair for meal times as able. ?? Pt encouraged to ambulate with staff, getting into the bathroom for toileting and walking out inthe kumari >/= 3 times daily as able. Subjective: ???I get so tired and short of breath. I was feeling this way even before I came into the hospital.?? Objective: Pt seen for evaluation today. Pain: mild pain at CT site, L posterior lung, moderate with L arm movement. Vital Signs: At Rest With Activity SpO2 (2L) 94% 91-93% BP (MAP) 113/88 mmHg 112/74 mmHg HR 117 bpm 107-120 bpm with gait Mental Status: alert, oriented to person, place, and time Vision: glasses for distance Skin: L posterior CT site, CDI Musculoskeletal: ROM: BUE AROM grossly wfls, mildly limited with L shoulder flex ~ 130 degrees. BLE AROM grossly wfls. Strength: B shoulders at least 3/5, elbows and hand strength 4/5. B hip flex 4/5, B knee and ankle strength 5/5. Sensation: Denied numbness or tingling. Bed Mobility: Supine to Sit: NE Sit to Supine: NE Transfers: Sit to Stand: modified independent Stand to Sit: same Gait: Distance: ~70' Device used: Triangular O2 cart Level of assist: cga and management of lines Gait mechanics: slow, reciprocal gait pattern Accessory ms use with ambulation and QUINTANILLA. Stairs: NE Balance: Sitting Static: modified independent Sitting Dynamic: modified independent Standing Static: fair with or without UE use Standing Dynamic / Gait: Fair with UE use and one assist Education: patient has been educated on Transfers, Positioning, Safety , Gait , Activity pacing/Energy conservation, Role of therapy, Balance and Discharge planning and verbalizes and needs reinforcement. understanding. Patient status, treatment, and mobility recommendations discussed with nursing. Assessment: Gena Morales was seen today for physical therapy evaluation. Pt is HD 3 after sustaining a PTX s/p lung bx. Pt now on waterseal. Pt benefited from PT evaluation and recommendations given the following: QUINTANILLA; tachycardia; acute on chronic medical conditions; acute pain; deconditioned with more sedentary living x 1.5 years; decreased AROM/strength; and resultant gait, balance, and endurance deficits. Pt is pleasant. She was educated on energy conservation ideas, such as pacing activities throughout her day and using a shower chair and/or handheld shower head. OT can assist with energy conservation education. Pt has had no falls. Although pt had QUINTANILLA, she feels it is no worse than prior to admission. Pt was tearful about her lower activity tolerance. Family lives with her and is very supportive. She has a couple of stairs to enter her home which family normally assists her with. Doubt need for ambulation device at home but PT to f/u early next week if pt remains in the hospital over the weekend. Pt should progress well, back to baseline of function, as CT is removed. The pt would benefit from skilled therapy services while in the hospital to maximize functional abilities. Discharge Recommendations: Based on the current findings, Anticipated Discharge Disposition (PT): home with supervision (as needed.) when medically ready for hospital discharge. Consult Recommendations: Occupational therapy consult Equipment needs: Anticipated Equipment Needs at Discharge (PT): to be determined (likely none) Goals: To be achieved by 09/11/22: 1. Pt. to demonstrates understanding of energy conservation techniques with functional tasks. 2. Pt. to perform bed mobility with modified independence. 3. Pt. to ambulate 100 feet with supervision using a No device vs LRAD. 4. Pt. to ambulate up/down 2 step/stairs using one hand support with supervision. 5. Pt will tolerate progression towards upright with stable vital signs. Plan: Therapy Frequency (PT): 1-2 more times for therapy including balance training, bed mobility training, gait training, patient/family education, stair training and strengthening. Patient/family understand and agree with plan as stated above. PT Evaluation Code Rationale: ?? Diagnosis & Pertinent Co-Morbidities, personal factors, and present illness affecting Plan of Care: (see above); Additional personal factors or co- morbidities that impact plan: ?? Total # of Factors: 0 1-2 3+ x ?? Examination of body system impairments, functional limitations and behaviors, and/or participation restrictions. Addressing 1-2 elements Addressing 3 + elements x Addressing 4 + elements ?? Clinical presentation: See assessment above. Stable/Uncomplicated Evolving/Fluctuating Symptoms Unstable/Unpredictable x ?? Clinical decision making of moderate complexity based on pt's functional performance as outlinedin this evaluation. Time IN / OUT: 3318-0356 Total Minutes, Physical Therapy: 35 (Mod EV) Billing Code: mod EV TRAVIS TURNER, PT Pager: [phone] Physical Therapy Inpatient Rehabilitation Department * Janes Haney MD - 09/07/2022 7:07 AM EST INTERVENTIONAL RADIOLOGY Inpatient Progress Note Admitted 09/03/2022 Procedure(s): CT guided lung biopsy Post-procedure day: #3 Time of patient encounter: 629 24 Hour Events: No significant overnight events. Resting comfortably. Chest x- ray with no residual pneumothorax. No air leak from chest tube, which is to water seal. Tolerating oral. Still on 2 NC. Last Value 24 Hour Range Temperature 36.5 ??C (97.7 ??F) Temp: [36.4 ??C (97.5 ??F)-36.9 ??C (98.4 ??F)] Heart Rate 97 Heart Rate: [85-138] Blood Pressure 93/67 BP: (89-144)/(60-77) Respiratory Rate 17 Resp: [15-26] SpO2 99 % SpO2: [90 %-99 %] Physical Exam GEN Resting in bed, A&O CARDS RRR LUNGS CTA B/L .Chest tube site CDI. ABD Non tender, nondistended Drains/Tubes: left pleural drain (placed 09/03): In place without evidence of change in position and to [facility] set to -[id number] wall suction with no air leak. No signs of infection, hematoma. Dressing C/D/I. Last 24H out: 0 mL Labs: Reviewed. Imaging: CXR with no residual ptx Assessment: 56 y.o. female PPD#[address] guided lung biopsy with postprocedure course complicated by hypoxic respiratory failure 2/2 pneumothorax requiring admission and chest tube placement. No air leak, remains on water seal, no ptx on CXR. Plan: - Repeat CXR with no residual pneumothorax - will plan to remove chest tube with additional 2 hour f/u CXR - Remainder per ICU/hospital medicine team. - IR to continue to follow, please reach out with any additional questions. Discussed with interventional attending, Dr. Webb. * Kevin Garcia MD - 09/07/2022 6:52 AM EST Inpatient Medicine Progress Note Active Hospital Problems: Hospital Day 4 days Active Hospital Problems Diagnosis ??? Pneumothorax after biopsy Resolved Hospital Problems No resolved problems to display. ID: 56 y.o. female with PMH of metatatic right breast cancer, asthma, and COPD presenting with acute respiratory distress in the setting of a recent pulmonary percutaneous biopsy with a pneumothorax. Interval Events/Subjective: Patient overall feeling well this morning. States she is experiencing a minor cough with minimal blood in her sputum as well as mild pain around her chest tube insertion site. No other acute complaints outside of feeling anxious about her breathing and everything that has happened to her. Otherwiseshe denies any chest pain/pressure, dyspnea, abdominal pain, nausea, vomiting fever, or lower extremity pain. IR called and confirmed plan to get CXR, pull chest tube, and have repeat CXR after. Physical Exam: Last value Range last 24 hrs Temperature Temp: 36.5 ??C (97.7 ??F) Temp: [36.4 ??C (97.5 ??F)-36.9 ??C (98.4 ??F)] Heart Rate Heart Rate: 97 Heart Rate: [85-138] Blood Pressure BP: 93/67 BP: (89-144)/(60-77) Respiratory Rate Resp: 17 Resp: [15-26] SpO2 SpO2: 99 % SpO2: [90 %-99 %] IO 09/06 07 - 09/07 07 In: 560 [P.O.:500; I.V.:60] Out: 750 [Urine:750] Wt (last/admit) 64.2 kg (141 lb 8.6 oz) 65.77 kg Ins/Outs: Intake/Output Summary (Last 24 hours) at 09/07/2022 0652 Last data filed at 09/07/2022 0600 Gross per 24 hour Intake 560 ml Output 750 ml Net -190 ml Physical exam: Gen: Alert, conversationally oriented, in NAD. HEENT: Facial plethora with bogginess over throat. Anicteric. Non-injected. Oropharynx nonerythematous. No exudates. Uvula midline and palate rises symmetrically. CV: RRR. Normal S1 and S2. No M/R/G. Pulm: On NC. Improved aeration of L apex.??L chest tube in place, no soakage of dressing.??No W/R/R Skin: Diffuse crepitus noted over precordium, shoulders, and upper back Abd: Normoactive bowel sounds. Soft, nondistended, nontender. BS+ Ext: No edema, clubbing, or cyanosis. Neuro: Alert and appropriate. Non-focal. Grossly intact. Psych: Cooperative, pleasant Laboratory: CBC: Recent Labs 09/07/2221309/06/220 09/05/22 0548 WBC 8.5 8.9 8.2 HGB 11.9 12.4 12.4 PLATELET 240 254 254 Chemistry: Recent Labs 09/07/2221309/06/220 09/05/22 0548 NA 141 140 141 K 3.4* 4.3 3.9 CL 104 104 108* CO2 25 26 23 BUN 14 14 15 CREATININE 0.68* 0.56* 0.60* GLUCOSE 110 101 98 Recent Labs 09/07/2221309/06/22 0200 09/05/22 0548 CALCIUM 8.9 8.9 8.9 MAGNESIUM 0.83 0.75 -- PHOS 3.7 3.9 -- LFT's: Recent Labs 09/03/22 1100 BILITOT <0.2* ALBUMIN 4.1 ALKPHOS 98 ALT 30 AST 25 Coags: Recent Labs 09/03/22 0819 PT 11.3 INR 1.0 Imaging/Studies: Results for orders placed or performed during the hospital encounter of 09/03/22 XR Chest One View (Exam End: 09/03/2022 2:15 PM) Impression Decreased size of now small left apical pneumothorax. Thank you for letting us participate in the care of this patient. If you are a health care provider and have any questions regarding this report, please contact the number below. For patients who have questions please contact the health care technician that requested your imaging first. Chest One View (Exam End: 09/04/2022 5:16 AM) Impression 1. Unchanged small left apical pneumothorax. 2. Similar appearance of the left upper lobe spiculated nodule. 3. Decreased reticular opacities throughout the left lung consistent with reexpansion edema. Thank you for letting us participate in the care of this patient. If you are a health care provider and have any questions regarding this report, please contact the number below. For patients who have questions please contact the health care technician that requested your imaging first. Chest One View (Exam End: 09/05/2022 6:38 AM) Impression Stable small left apical pneumothorax. Worsening chest wall subcutaneous emphysema. Thank you for letting us participate in the care of this patient. If you are a health care provider and have any questions regarding this report, please contact the number below. For patients who have questions please contact the health care technician that requested your imaging first. Chest One View (Exam End: 09/04/2022 12:08 PM) Impression Stable to minimally decreased small left apical pneumothorax. Unchanged left subcutaneous emphysema. Left-sided chest tube remains in place. Thank you for letting us participate in the care of this patient. If you are a health care provider and have any questions regarding this report, please contact the number below. For patients who have questions please contact the health care technician that requested your imaging first. Chest One View (Exam End: 09/05/2022 5:53 PM) Impression Enlarging left pneumothorax. Unexpected finding. Thank you for letting us participate in the care of this patient. If you are a health care provider and have any questions regarding this report, please contact the number below. For patients who have questions please contact the health care technician that requested your imaging first. Chest wo Contrast (Generic) (Exam End: 09/05/2022 8:32 PM) Impression * Intrafissural termination of posterior approach LEFT pigtail catheter, with a trace pneumothorax anteriorly; no catheter kink appreciated although the metallic marker is just at the edge of the allen-pleural thoracic cage. * Extensive pneumomediastinum, with large amount of external soft tissue air. * Probable pulmonary edema most apparent in the CATHERINE; more prominent superimposed patchy opacities could be infectious/inflammatory. Thank you for letting us participate in the care of this patient. If you are a health care provider and have any questions regarding this report, please contact the number below. For patients who have questions please contact the health care technician that requested your imaging first. Chest One View (Exam End: 09/06/2022 11:14 AM) Impression Resolution of LEFT pneumothorax Thank you for letting us participate in the care of this patient. If you are a health care provider and have any questions regarding this report, please contact the number below. For patients who have questions please contact the health care technician that requested your imaging first. Chest One View (Exam End: 09/06/2022 2:21 PM) Impression No residual left pneumothorax. I have personally reviewed the image(s) and the resident's interpretation and agree with the findings, Yu Roblero MD at 09/06/2022 3:05 PM Thank you for letting us participate in the care of this patient. If you are a health care provider and have any questions regarding this report, please contact the number below. For patients who have questions please contact the health care technician that requested your imaging first. Scheduled Medications: ??? guaiFENesin ER 1,200 mg Oral BID ??? montelukast 10 mg Oral Nightly ??? sodium chloride 0.9 % (flush) 5 mL Intravenous BID ??? enoxaparin 40 mg Subcutaneous Nightly ??? budesonide 500 mcg Nebulization (R) BID ??? ipratropium-albuteroL 3 mL Nebulization Q6H MEL Infusing Medications: PRN Medications: acetaminophen, calcium carbonate, famotidine, prochlorperazine, ondansetron, sodium chloride 0.9 % (flush), lidocaine, albuteroL Assessment: 56 y.o. female 56 y.o. female Gena Colt Morales??is a 56 y.o.??female??w/ PMH of metatatic right breast cancer, asthma, and COPD presenting with acute respiratory distress in the setting of a recent pulmonary percutaneous biopsy with concern for PTX.?? Pneumothorax likely iatrogenic as a complication of the biopsy. Secondary as a result of her COPD is also a possibility; however, given the sequence of the events and timing it is unlikely at this time. Course further complicated by acute dyspneic episode and extension of subcutaneous emphysema, which is so far responding to O2 supplementation. Confirmed with IR to go ahead and pull chest tube with CXR before and after. Tachycardia likely multifactorial as a result of PTX, anxiety, and current subcutaneous emphysema. Will CTM for now and give patient PRN ativan for anxiety as below. #L lung mass #COPD #Pneumothorax #Subcutaneous emphysema - Pull Chest tube today, repeat CXR 2 hours afterward - Lung bx returned without any evidence of malignancy - Low flow O2 to facilitate resorption of ptx / subq emphysema - Budesonide nebulizer 500 mcg BID - Albuterol nebulizer 2.5 q6hrs PRN - Ipratropium-albuterol 0.5 - 3 mg q6hrs - Guaifenesin ER 1,200 mg BID - Montelukast 10 mg qhs - Acetaminophen for catheter site pain ?? #HTN #Tachycardia #Anxiety - Tele - s/p labetalol -Lorazepam 0.5 mg TID PRN #Routine: - DVT:??YUDITH - GI:??N/A - Diet:??Regular Diet - Vitals: q4h - Code Status: DNR, amenable to time-limited trial of intubation Wolfgang Saxena MD PGY-1, Internal Medicine [facility], [place] Team 09/07/[address] Medicine Service Attending Documentation ?? I certify that the patient requires: [x] inpatient care status due to pneumothorax. [ ] Observation Care ?? Please see Dr. Saxena's note for details of the patient history of presentation and data. I have examined the patient myself and personally reviewed all studies. I have discussed, reviewed and agree with the documented History, Physical findings, Assessment and Plan of care with the following additions: Patient seen after chest tube removed by IR about an hour earlier and clinically doing well thus far. Plan for d/c home tomorrow 09/08 if she remains stable without the chest tube. And as noted above, biopsy of lung nodule returned negative for malignancy - showed some chronic inflammation and scar. KEVIN GARCIA MD 09/08/2022 * Kevin Garcia MD - 09/06/2022 12:44 PM EST Inpatient Medicine Progress Note Active Hospital Problems: Hospital Day 3 days Active Hospital Problems Diagnosis ??? Pneumothorax after biopsy Resolved Hospital Problems No resolved problems to display. ID: 56 y.o. female with PMH of metatatic right breast cancer, asthma, and COPD presenting with acute respiratory distress in the setting of a recent pulmonary percutaneous biopsy with a pneumothorax. Interval Events: - Subcutaneous emphysema noted on CXR after physical exam revealed new crepitus. - Plan for blood patch by IR aborted upon transport when patient found to be markedly dyspneic, tripoding, HR 130s, SBP ~200. - Received labetalol 10mg IV with good effect. Initial improvement in dyspnea. - ~1h after intervention patient noted increased dyspnea and voice change; exam revealed diffuse crepitus over precordium, upper back, and neck. Chest tube kink found and splinted. - CT chest with widespread subcutaneous emphysema and pneumomediastinum. Transferred to MICU for further management. - This AM notable more comfortable, maintaining SpO2 on NC. - IR plan for water seal trial today. Subjective: Upon transfer back to Hospital Medicine, patient reports breathing and facial swelling have greatlyimproved from previous night. Denies wheezing or dyspnea at rest. Mild cough persists. She is aware of her heart beat but denies chest pain or pressure. Crepitus is unsettling to patient but overall improving. She is tolerating PO liquids and ate half a sandwich for lunch without recurrent nauseaor abdominal pain. Soft stools overnight have resolved. No other complaints or concerns noted at this time. Physical Exam: Last value Range last 24 hrs Temperature Temp: 36.9 ??C (98.4 ??F) Temp: [36.3 ??C (97.3 ??F)-36.9 ??C (98.4 ??F)] Heart Rate Heart Rate: (!) 105 Heart Rate: [92-142] Blood Pressure BP: 110/67 BP: (95-235)/(38-181) Respiratory Rate Resp: 18 Resp: [15-31] SpO2 SpO2: 93 % SpO2: [90 %-99 %] IO 09/05 0701 - 09/06 0700 In: 50 [I.V.:50] Out: 450 [Urine:450] Wt (last/admit) 66.5 kg (146 lb 9.7 oz) 65.77 kg Ins/Outs: Intake/Output Summary (Last 24 hours) at 09/06/2022 1244 Last data filed at 09/06/2022 1200 Gross per 24 hour Intake 310 ml Output 550 ml Net -240 ml Physical exam: Gen: Alert, conversationally oriented, in NAD. HEENT: Facial plethora with bogginess over throat. Anicteric. Non-injected. Oropharynx nonerythematous. No exudates. Uvula midline and palate rises symmetrically. CV: RRR. Normal S1 and S2. No M/R/G. Pulm: On NC. Improved aeration of L apex.??L chest tube in place, no soakage of dressing.??No W/R/R Skin: Diffuse crepitus noted over precordium, shoulders, and upper back Abd: Normoactive bowel sounds. Soft, nondistended, nontender. BS+ Ext: No edema, clubbing, or cyanosis. Neuro: Alert and appropriate. Non-focal. Grossly intact. Psych: Cooperative, pleasant Laboratory: CBC: Recent Labs 09/06/22 0200 09/05/22 0548 09/04/22 0435 WBC 8.9 8.2 8.2 HGB 12.4 12.4 12.4 PLATELET 254 254 242 Chemistry: Recent Labs 09/06/22 0200 09/05/22 0548 09/04/22 0435 NA 140 141 137 K 4.3 3.9 4.2 CL 104 108* 105 CO2 26 23 23 BUN 14 15 10 CREATININE 0.56* 0.60* 0.54* GLUCOSE 101 98 123 Recent Labs 09/06/22 0200 09/05/22 0548 09/04/22 0435 CALCIUM 8.9 8.9 9.1 MAGNESIUM 0.75 -- -- PHOS 3.9 -- -- LFT's: Recent Labs 09/03/22 1100 BILITOT <0.2* ALBUMIN 4.1 ALKPHOS 98 ALT 30 AST 25 Coags: Recent Labs 09/03/22 0819 PT 11.3 INR 1.0 Imaging/Studies: Results for orders placed or performed during the hospital encounter of 09/03/22 XR Chest One View (Exam End: 09/03/2022 2:15 PM) Impression Decreased size of now small left apical pneumothorax. Thank you for letting us participate in the care of this patient. If you are a health care provider and have any questions regarding this report, please contact the number below. For patients who have questions please contact the health care technician that requested your imaging first. Chest One View (Exam End: 09/04/2022 5:16 AM) Impression 1. Unchanged small left apical pneumothorax. 2. Similar appearance of the left upper lobe spiculated nodule. 3. Decreased reticular opacities throughout the left lung consistent with reexpansion edema. Thank you for letting us participate in the care of this patient. If you are a health care provider and have any questions regarding this report, please contact the number below. For patients who have questions please contact the health care technician that requested your imaging first. Chest One View (Exam End: 09/05/2022 6:38 AM) Impression Stable small left apical pneumothorax. Worsening chest wall subcutaneous emphysema. Thank you for letting us participate in the care of this patient. If you are a health care provider and have any questions regarding this report, please contact the number below. For patients who have questions please contact the health care technician that requested your imaging first. Chest One View (Exam End: 09/04/2022 12:08 PM) Impression Stable to minimally decreased small left apical pneumothorax. Unchanged left subcutaneous emphysema. Left-sided chest tube remains in place. Thank you for letting us participate in the care of this patient. If you are a health care provider and have any questions regarding this report, please contact the number below. For patients who have questions please contact the health care technician that requested your imaging first. Chest One View (Exam End: 09/05/2022 5:53 PM) Impression Enlarging left pneumothorax. Unexpected finding. Thank you for letting us participate in the care of this patient. If you are a health care provider and have any questions regarding this report, please contact the number below. For patients who have questions please contact the health care technician that requested your imaging first. Chest wo Contrast (Generic) (Exam End: 09/05/2022 8:32 PM) Impression * Intrafissural termination of posterior approach LEFT pigtail catheter, with a trace pneumothorax anteriorly; no catheter kink appreciated although the metallic marker is just at the edge of the allen-pleural thoracic cage. * Extensive pneumomediastinum, with large amount of external soft tissue air. * Probable pulmonary edema most apparent in the CATHERINE; more prominent superimposed patchy opacities could be infectious/inflammatory. Thank you for letting us participate in the care of this patient. If you are a health care provider and have any questions regarding this report, please contact the number below. For patients who have questions please contact the health care technician that requested your imaging first. Chest One View (Exam End: 09/06/2022 11:14 AM) Impression Resolution of LEFT pneumothorax Thank you for letting us participate in the care of this patient. If you are a health care provider and have any questions regarding this report, please contact the number below. For patients who have questions please contact the health care technician that requested your imaging first. Scheduled Medications: ??? guaiFENesin ER 1,200 mg Oral BID ??? montelukast 10 mg Oral Nightly ??? sodium chloride 0.9 % (flush) 5 mL Intravenous BID ??? enoxaparin 40 mg Subcutaneous Nightly ??? budesonide 500 mcg Nebulization (R) BID ??? ipratropium-albuteroL 3 mL Nebulization Q6H MEL Infusing Medications: PRN Medications: calcium carbonate, acetaminophen, famotidine, prochlorperazine, ondansetron, sodium chloride 0.9 % (flush), lidocaine, albuteroL Assessment: 56 y.o. female 56 y.o. female Gena Morales??is a 56 y.o.??female??w/ PMH of metatatic right breast cancer, asthma, and COPD presenting with acute respiratory distress in the setting of a recent pulmonary percutaneous biopsy with concern for PTX.?? Pneumothorax likely iatrogenic as a complication of the biopsy. Secondary as a result of her COPD is also a possibility; however, given the sequence of the events and timing it is unlikely at this time. Course further complicated by acute dyspneic episode and extension of subcutaneous emphysema, which is so far responding to O2 supplementation. Ongoing water seal trial and time of downgrade. Monitoring tachycardia. Rest of plan as follows. #L lung mass #COPD #Pneumothorax #Subcutaneous emphysema - Lung bx pending - Downgrade from MICU 09/06 - Trend CXR - Low flow O2 to facilitate resorption of ptx / subq emphysema - CT mgmt per IR, appreciate assistance > Set to -20cc > Water seal trial 09/06 with CXR 2h post seal - Budesonide nebulizer 500 mcg BID - Albuterol nebulizer 2.5 q6hrs PRN - Ipratropium-albuterol 0.5 - 3 mg q6hrs - Guaifenesin ER 1,200 mg BID - Montelukast 10 mg qhs - Acetaminophen for catheter site pain ?? #HTN #Tachycardia - Tele - s/p labetalol - Low threshold PE evaluation given c/f malignancy; on ppx #Routine: - DVT:??YUDITH - GI:??N/A - Diet:??Regular Diet - Vitals: q4h - Code Status: DNR, amenable to time-limited trial of intubation Reza Novak MD PGY-2, Internal Medicine [facility], [place] Team 09/06/22 Hospital Medicine Service Attending Documentation I certify that the patient requires: [x] inpatient care status due to pneumothorax. [ ] Observation Care Please see Dr. Novak's note for details of the patient history of presentation and data. I have examined the patient myself and personally reviewed all studies. I have discussed, reviewed and agree with the documented History, Physical findings, Assessment and Plan of care. KEVIN GARCIA MD 09/06/2022 * Kyler Choudhury MD - 09/06/2022 7:45 AM EST CRITICAL CARE ATTENDING I am assuming critical care attending responsibility for Mrs. Morales. I have personally examined her and reviewed her medical records and radiographic studies. Brief Summary: 56 year old woman admitted with pneumothorax complicated by hypoxemia following lungbiopsy. Active Problems Pneumothorax s/p lung biopsy Lung nodule Breast cancer Emphysema Asthma Events past 24 hours: On low-flow oxygen overnight. Fluid balance slightly negative. Vital signs: Temp: [36.3 ??C (97.3 ??F)-36.6 ??C (97.9 ??F)] Heart Rate: [92-142] Resp: [15-31] BP: (95-235)/(38-181) SpO2: [90 %-99 %] Heart Rate from SpO2: [91 bpm-118 bpm] On exam today, she appeared comfortable on low flow oxygen; she has extensive subcutaneous emphysema; lungs -- no wheezing. I reviewed the laboratory data, which were notable for normal CBC, lytes, BUN and creatinine. I personally reviewed her radiographic studies. Her chest imaging from yesterday shows extensive subcutaneous and mediastinal emphysema and a left pneumothorax superimposed upon a background of emphysema. Assessment and Plan: Doing well. She still has extensive subcutaneous emphysema, so I think it's worth continuing supplemental oxygen to hasten the reabsorption of the air. She had absolutely no wheezes when I saw her this morning, so I think her prednisone can be stopped. At this point, I think she is okay for transfer from [facility]. * Janes Haney MD - 09/06/2022 6:13 AM EST INTERVENTIONAL RADIOLOGY Inpatient Progress Note Admitted 09/03/2022 Procedure(s): CT guided lung biopsy Post-procedure day: #2 Time of patient encounter: 0630 24 Hour Events: Increased work of breathing and assuming splinting posture yesterday, with CXR findings of increased subcutaneous air. Planned blood patch procedure yesterday, however unfortunately unable to lay flat due to dyspnea and anxiety.Transferred to ICU. CT chest with trace pneumothroax anteriorly with pigtail intrafissural in location as well as pneumomediastinum and extensive subcutaneous air. Requiring 6L NC overnight. VSS - intermittently hypertensive Last Value 24 Hour Range Temperature 36.5 ??C (97.7 ??F) Temp: [36.3 ??C (97.3 ??F)-36.6 ??C (97.9 ??F)] Heart Rate 94 Heart Rate: [92-142] Blood Pressure 99/53 BP: (95-235)/(38-181) Respiratory Rate 16 Resp: [15-31] SpO2 99 % SpO2: [90 %-99 %] Physical Exam GEN Resting in bed, A&O CARDS RRR LUNGS CTA B/L ABD Non tender, nondistended Drains/Tubes: left pleural drain (placed 09/03): In place without evidence of change in position and to [facility] set to -[id number] wall suction with no air leak. No signs of infection, hematoma. Dressing C/D/I. Last 24H out: 0 mL Labs: Reviewed. Imaging: CT reviewed. * Intrafissural termination of posterior approach LEFT pigtail catheter, with a trace pneumothorax anteriorly; no catheter kink appreciated although the metallic marker is just at the edge of the allen-pleural thoracic cage. * Extensive pneumomediastinum, with large amount of external soft tissue air. * Probable pulmonary edema most apparent in the CATHERINE; more prominent superimposed patchy opacities could be infectious/inflammatory. Assessment: 56 y.o. female PPD#[address] guided lung biopsy with postprocedure course complicated by pneumothorax requiring admission and chest tube placement. Yesterday, requiring admission to ICU following respiratory distress. Plan: - Repeat CXR this morning to evaluate pneumothorax - plan for water seal trail later today with follow up CXR 2 hours following. - Remainder per ICU/hospital medicine team. - IR to continue to follow, please reach out with any additional questions. Discussed with interventional attending, Dr. Webb. * Yolanda Finley RN - 09/05/2022 6:10 PM EST ANGIO NURSING DATABASE Name: Gena Morales Date of : 1965 AGE: 56 y.o. Address: [address] [address] (home) Mobile: Telephone Information: Referring Provider: No ref. provider found REASON FOR VISIT: Order Questions Answers Is the patient on anticoagulant / antiplatelet therapy ? No Reason for exam and clinical history: persistent pneumothorax and air leak following lung biopsy with plan for blood patch Planned procedure: Left pleural blood patch Labs to be performed day of procedure: No labs Sedation: No Sedation Prophylactic antibiotic : None Contrast: No contrast Additional medications for procedure: Lidocaine Planned access site: left chest tube Position: Supine Consent: Pending Medications to discontinue (and days held): None Case Urgency:: D- Intervention within 24 hrs Allergies Allergen Reactions ??? Amoxicillin Pertinent PMH: Patient Active Problem List Diagnosis Code ??? Malignant neoplasm of right breast in female, estrogen receptor positive C50.911, Z17.0 ??? Pneumothorax after biopsy J95.811 Date/Procedure Meds Given/Comments 09/03/2022 Left lung biopsy Versed 2mg IV, Fentanyl 100mcg IV pt developed pneumothorax, chest tubeplaced 09/03/2020 Lt. Chest tube repositioning/replacement Lot #[id number] Compazine 10mg IV ??09/05/22 CT guided Chest tube w/ blood patch ??25mcg fentanyl given - pt unable to lay flat. [facility]team called ? Pt arrived to pre in tripod position. Pt placed on Monitors. Pt stated i'm having a panic attack 25mcg of fentanyl given. Dr. Beltrán paged for HTN, increase in 02 requirements pt unable to lay flatfor procedure. Pt coughed up blood secretions. Dr. Beltrán at bedside - [facility] team called. STAT EKG and chest xray ordered by Dr. Beltrán. [facility] team at bedside. ANTHONY to life safety RN. - ANNA Finley. Laboratory Results: Lab Results Component Value Date INR 1.0 09/03/2022 Lab Results Component Value Date CREATININE 0.60 (L) 09/05/2022 Lab Results Component Value Date K 3.9 09/05/2022 Lab Results Component Value Date PLATELET 254 09/05/2022 * Kevin Garcia MD - 09/05/2022 7:04 AM EST Inpatient Medicine Progress Note Active Hospital Problems: Hospital Day 2 days Active Hospital Problems Diagnosis ??? Pneumothorax after biopsy Resolved Hospital Problems No resolved problems to display. ID: 56 y.o. female with PMH of metatatic right breast cancer, asthma, and COPD presenting with acute respiratory distress in the setting of a recent pulmonary percutaneous biopsy with a pneumothorax. Interval Events: Overnight: 05 - paged for crepitus and acid reflux; exam notable for crepitus in anterior chest wall and neck, IR notified. Tums provided for acid reflux. Patient feeling slightly worse today than yesterday stating her she is feeling more SOB while up and walking to the bathroom. She still reports a combination of anterior neck pain and indigestion. She states the anterior neck pain came on last night located at the left base of her neck rated a 5/10. Not worsened with palpation or deep breathing. She states it is improved with tylenol. She also notes some acid reflux symptoms that she say is consistent with what she experienced outside the hospital, namely she feels some mild discomfort in her epigastric region, nausea, as well as a mild sour taste in her mouth. She said the Tums overnight did help. She denied any further ROS complaints including other chest pain, palpitations, gross abdominal pain, fever, chills, diarrhea, or new weakness. IR will take at 3PM for repositioning of chest tube and blood patch placement. Physical Exam: Last value Range last 24 hrs Temperature Temp: 36.6 ??C (97.9 ??F) Temp: [36.4 ??C (97.5 ??F)-36.8 ??C (98.2 ??F)] Heart Rate Heart Rate: (!) 102 Heart Rate: -- Blood Pressure BP: 143/80 BP: (121-143)/(73-82) Respiratory Rate Resp: 20 Resp: [18-20] SpO2 SpO2: 97 % SpO2: [93 %-97 %] IO 09/04 0701 - 09/05 0700 In: 120 [P.O.:120] Out: 473 [Urine:453] Wt (last/admit) Ins/Outs: Intake/Output Summary (Last 24 hours) at 09/05/2022 0704 Last data filed at 09/05/2022 0500 Gross per 24 hour Intake 120 ml Output 473 ml Net -353 ml Physical exam: Gen: NAD. HEENT: Anicteric. Non-injected. Oropharynx nonerythematous. No exudates. Uvula midline and palate rises symmetrically. CV: RRR. Normal S1 and S2. No M/R/G. Pulm: Absent breath sounds in apical/base of left .??Left sided chest tube in place, no appreciablesoakage through dressing.??Crepitus felt on anterior left chest wall and base of neck. Abd: normoactive bowel sounds. Soft, nondistended, nontender. Ext: no edema, clubbing, or cyanosis. Neuro: alert and appropriate. Non-focal. Grossly intact. Psych: cooperative, pleasant Laboratory: CBC: Recent Labs 09/05/22 0548 09/04/22 0435 09/03/22 1100 WBC 8.2 8.2 7.8 HGB 12.4 12.4 12.8 PLATELET 254 242 292 Chemistry: Recent Labs 09/05/22 0548 09/04/22 0435 09/03/22 1100 NA 141 137 139 K 3.9 4.2 4.2 CL 108* 105 107 CO2 23 23 25 BUN 15 10 11 CREATININE 0.60* 0.54* 0.70 GLUCOSE 98 123 176 Recent Labs 09/05/22 0548 09/04/22 0435 09/03/22 1100 CALCIUM 8.9 9.1 8.7 LFT's: Recent Labs 09/03/22 1100 BILITOT <0.2* ALBUMIN 4.1 ALKPHOS 98 ALT 30 AST 25 Coags: Recent Labs 09/03/22 0819 PT 11.3 INR 1.0 Cardiac enzymes: No results for input(s): TROPONINT, CK, PROBNP in the last 7068 hours. Endocrine: No results for input(s): TSH, CORTISOL in the last 7068 hours. Invalid input(s): [id number] No results for input(s): HA1C in the last 7068 hours. Heme: No results for input(s): LDH, HAPTOGLOBIN, URICACID in the last 168 hours. Lipids: Imaging/Studies: Results for orders placed or performed during the hospital encounter of 09/03/22 XR Chest One View (Exam End: 09/03/2022 2:15 PM) Impression Decreased size of now small left apical pneumothorax. Thank you for letting us participate in the care of this patient. If you are a health care provider and have any questions regarding this report, please contact the number below. For patients who have questions please contact the health care technician that requested your imaging first. Chest One View (Exam End: 09/04/2022 5:16 AM) Impression 1. Unchanged small left apical pneumothorax. 2. Similar appearance of the left upper lobe spiculated nodule. 3. Decreased reticular opacities throughout the left lung consistent with reexpansion edema. Thank you for letting us participate in the care of this patient. If you are a health care provider and have any questions regarding this report, please contact the number below. For patients who have questions please contact the health care technician that requested your imaging first. Chest One View (Exam End: 09/04/2022 12:08 PM) Impression Stable to minimally decreased small left apical pneumothorax. Unchanged left subcutaneous emphysema. Left-sided chest tube remains in place. Thank you for letting us participate in the care of this patient. If you are a health care provider and have any questions regarding this report, please contact the number below. For patients who have questions please contact the health care technician that requested your imaging first. Scheduled Medications: ??? guaiFENesin ER 1,200 mg Oral BID ??? montelukast 10 mg Oral Nightly ??? sodium chloride 0.9 % (flush) 5 mL Intravenous BID ??? enoxaparin 40 mg Subcutaneous Nightly ??? budesonide 500 mcg Nebulization (R) BID ??? ipratropium-albuteroL 3 mL Nebulization Q6H MEL Infusing Medications: PRN Medications: calcium carbonate, acetaminophen, sodium chloride 0.9 % (flush), lidocaine, albuteroL Assessment: 56 y.o. female 56 y.o. female Gena Morales??is a 56 y.o.??female??w/ PMH of metatatic right breast cancer, asthma, and COPD presenting with acute respiratory distress in the setting of a recent pulmonary percutaneous biopsy with concern for pneumothorax.??Pneumothorax likely iatrogen ic as a complication of the biopsy. Secondary as a result of her COPD is also a possibility; however, given the sequence of the events and timing it is unlikely at this time.??Overall clinical statusseems to be improving with recent chest tube placement and patient reporting improvement in her SOB. Will continue to monitor for any signs of worsening respiratory distress or any cardiac pathology.Will keep chest tube to -20 today, will be taken for blood patch and possible repositioning of chest tube this afternoon. ?? #COPD #Pneumothroax -Budesonide nebulizer 500 mcg BID -Albuterol nebulizer 2.5 q6hrs PRN -Ipratropium-albuterol 0.5 - 3 mg q6hrs -Guaifenesin ER 1,200 mg BID -Montelukast 10 mg qhs -Chest tube to -20 cm -Daily CXR -Blood patch with IR and chest tube replacement ?? #Routine: -DVT:??Enoxaparin 40 mg qhs - GI:??Not indicated - Diet:??Regular Diet ?? CODE Status:??DNR/DNI ?? Wolfgang Saxena MD [address] Medicine Service Attending Documentation ?? I certify that the patient requires: [x] inpatient care status due to pneumothorax requiring chest tube. [ ] Observation Care ?? Please see Dr. Saxena's note for details of the patient history of presentation and data. I have examined the patient myself and personally reviewed all studies. I have discussed, reviewed and agree with the documented History, Physical findings, Assessment and Plan of care. ?? KEVIN GARCIA MD 09/14/2022 * Zenobia Li, RN - 09/04/2022 11:46 PM ESTSummary: Nursing OUTCOME EVALUATION NOTE: OUTCOME SUMMARY: A&Ox4, vss, NC 4L O2, chest tube -20 mmhg, crepitus felt proximal to site, SOB w/ exertion and mobility, IS provided w/ verbal instruction, s/b to commode, complains of 5/10 pain r/t chest tube, relieved w/ tylenol. Patient is resting in bed, no problems voiding, WCTM. *New complaint of uncomfortable feeling in neck, crepitus felt, providers paged (Dr. Richey and Dr. Sterling), IR to f/u. PLAN MOVING FORWARD: Respiratory Care/chest tube management Pain management INDIVIDUALIZED FALL PREVENTION INTERVENTIONS: Patient-specific fall risk factors per assessment: [current deficits]: Hospital environment, chest tube, O2 tube Assistance [level of assistance required for transfers and ambulation]: s/b Supervision [direct monitoring required during toileting and ADLs]: Hands/eyes on Surveillance [continuous indirect monitoring]: Room close to nurse station, [facility], call lainez Patient-specific fall prevention interventions for sensory deficits provided, if applicable: [X] Yes CARE PLAN GOAL OUTCOME EVALUATION: * Dave Mobley PA - 09/04/2022 9:00 AM EST Images from the original note were not included. INTERVENTIONAL RADIOLOGY Inpatient Progress Note Admitted 09/03/2022 Procedure(s): L lung biopsy c/b PTX s/p L CT placement Post-procedure day: #1 Time of patient encounter: 24 Hour Events: The patient had left sided lung biopsy yesterday c/b pneumothorax requiring chest tube placement. The patient had significant ongoing ptx after placement requiring repositioning of chest tube with overall improvement. The patient has improved from 10L to 4L NC and this morning does n ot complain of significant pain or discomfort. She continues to have 1-2 column air leak with simple inspiration and cough. Chest tube currently at -20mm H20. Last Value 24 Hour Range Temperature 36.4 ??C (97.5 ??F) Temp: [36.3 ??C (97.3 ??F)-36.7 ??C (98.1 ??F)] Heart Rate (!) 102 Heart Rate: [90-125] Blood Pressure 128/82 BP: (108-176)/(53-131) Respiratory Rate 20 Resp: [15-32] SpO2 93 % SpO2: [84 %-100 %] Physical Exam GEN No distress, A&O CARDS Acyanotic LUNGS Non-labored, mild crepitus about chest tube Drains/Tubes: Left chest tube (09/03/22): At -20cm H20 with 1-2 column air leak Labs: Recent Results (from the past 24 hour(s)) Comprehensive metabolic panel (non-fasting) Result Value Ref Range Glucose Lvl 176 65 - 199 mg/dL BUN 11 8 - 18 mg/dL Creatinine 0.70 0.70 - 1.20 mg/dL Sodium 139 135 - 145 mmol/L Potassium 4.2 3.5 - 5.0 mmol/L Chloride 107 98 - 107 mmol/L CO2 25 22 - 31 mmol/L Anion Gap 7 5 - 15 mmol/L Calcium 8.7 8.5 - 10.5 mg/dL Total Protein 6.7 6.1 - 8.0 g/dL Albumin 4.1 3.2 - 5.2 g/dL AST 25 0 - 30 unit/L ALT 30 0 - 30 unit/L Alk Phos 98 35 - 105 unit/L Total Bilirubin <0.2 (L) 0.2 - 1.3 mg/dL Estimated GFR 100 >=60 mL/min/1.73 m?? Hemogram Result Value Ref Range WBC 7.8 4.0 - 9.5 x10(3)/mcL RBC 4.09 4.00 - 5.21 x10(6)/mcL Hemoglobin 12.8 11.7 - 15.5 g/dL Hematocrit 39.5 35.7 - 45.8 % MCV 96.6 (H) 82.6 - 94.4 fL MCH 31.3 27.1 - 32.0 pg MCHC 32.4 31.7 - 35.0 g/dL Platelets 292 145 - 357 x10(3)/mcL RDWSD 45.7 37.0 - 46.0 fL RDWCV 12.8 11.5 - 14.1 % MPV 9.1 7.6 - 12.9 fL nRBC % Auto 0.0 % nRBC Abs Auto 0.000 0.000 - 0.000 x10(3)/mcL Differential, Automated Result Value Ref Range Neutrophils % 53.4 % Neutr Abs (ANC) 4.17 1.70 - 6.10 x10(3)/mcL Lymphocytes % 32.3 % Lymphocytes Abs 2.5 0.9 - 3.2 x10(3)/mcL Monocytes % 8.7 % Monocyte Abs 0.7 0.3 - 0.9 x10(3)/mcL Eosinophils % 3.6 % Eosinophils Abs 0.3 0.0 - 0.4 x10(3)/mcL Basophils % 1.2 % Basophils Abs 0.1 0.0 - 0.1 x10(3)/mcL Immature Gran % 0.80 % Jessica Gran Abs 0.06 (H) 0.00 - 0.04 x10(3)/mcL Blue Tube HOLD Result Value Ref Range Blue Hold Sample in lab. Gold Tube HOLD Result Value Ref Range Gold Hold Sample in lab. Blood Gas Arterial (NL) Result Value Ref Range pH Art 7.26 (CRIT) 7.35 - 7.45 pCO2 Art 48 (H) 35 - 45 mmHg pO2 Art 106 (H) 85 - 104 mmHg HCO3 Art 21.0 20.0 - 26.0 mmol/L BE Art -6.0 (L) -3.0 - 3.0 mmol/L Hgb Blood Gas 13.7 11.7 - 15.5 g/dL O2HB Art 96.9 94.0 - 97.0 % COHB Art 0.4 % METHB Art 0.3 <=1.5 % Na Whole Blood 138 135 - 145 mmol/L K Whole Blood 4.4 3.5 - 5.0 mmol/L ICa Whole Blood 1.17 1.15 - 1.33 mmol/L CL Whole Blood 107 98 - 107 mmol/L Gluc Whole Bld 173 65 - 199 mg/dL Lactate WB 1.1 0.5 - 2.2 mmol/L Hemogram Result Value Ref Range WBC 8.2 4.0 - 9.5 x10(3)/mcL RBC 3.76 (L) 4.00 - 5.21 x10(6)/mcL Hemoglobin 12.4 11.7 - 15.5 g/dL Hematocrit 35.8 35.7 - 45.8 % MCV 95.2 (H) 82.6 - 94.4 fL MCH 33.0 (H) 27.1 - 32.0 pg MCHC 34.6 31.7 - 35.0 g/dL Platelets 242 145 - 357 x10(3)/mcL RDWSD 44.6 37.0 - 46.0 fL RDWCV 12.9 11.5 - 14.1 % MPV 9.0 7.6 - 12.9 fL nRBC % Auto 0.0 % nRBC Abs Auto 0.000 0.000 - 0.000 x10(3)/mcL Basic Metabolic Panel (non-fasting) Result Value Ref Range Glucose Lvl 123 65 - 199 mg/dL BUN 10 8 - 18 mg/dL Creatinine 0.54 (L) 0.70 - 1.20 mg/dL Sodium 137 135 - 145 mmol/L Potassium 4.2 3.5 - 5.0 mmol/L Chloride 105 98 - 107 mmol/L CO2 23 22 - 31 mmol/L Anion Gap 9 5 - 15 mmol/L Calcium 9.1 8.5 - 10.5 mg/dL Estimated GFR 107 >=60 mL/min/1.73 m?? Imaging: Assessment: 56 y.o. female with PMH of breast CA with CATHERINE lung nodule s/p CT- guided L lung nodule biopsy this morning with post-procedural L pneumothorax s/p L chest tube placement requiring subsequent repositioning with improved oxygenation though persistent pneumothorax and 1-2 column air leak. Plan: 1) Will continue chest tube to -20cm H20 today. Given ongoing air leak and PTX will not attempt water seal trial today 2) Plan to reassess tomorrow and possible water seal trial if improvement. If no improvement tomorrow may consider blood patch and/or thoracic involvement. * Kevin Garcia MD - 09/04/2022 6:56 AM EST Inpatient Medicine Progress Note Active Hospital Problems: Hospital Day 1 day Active Hospital Problems Diagnosis ??? Pneumothorax after biopsy Resolved Hospital Problems No resolved problems to display. ID: 56 y.o. female with PMH of metatatic right breast cancer, asthma, and COPD presenting with acute respiratory distress in the setting of a recent pulmonary percutaneous biopsy with a pneumothorax. Interval Events: Patient admitted with IR placement of left sided chest tube put on suction at - 20 cm. Patient also given nebulizer and methylprednisolone during admission from ED. No acute events overnight. CXR fromthis morning still shows PTX with ongoing air leak. Patient reports this morning feeling well. States the pain from her chest tube site is well controlled currently with tylenol, continues to deny any other chest pain or palpitations. She reports feeling her SOB has continued to improve and reportsfeeling better than she did at home. No further ROS complaints including fever, nausea, headache, vision/hearing changes, abdominal pain, diarrhea, or new weakness/change in sensation. Physical Exam: Last value Range last 24 hrs Temperature Temp: 36.7 ??C (98.1 ??F) Temp: [36.3 ??C (97.3 ??F)-36.7 ??C (98.1 ??F)] Heart Rate Heart Rate: (!) 102 Heart Rate: [90-125] Blood Pressure BP: 139/85 BP: (108-176)/(53-131) Respiratory Rate Resp: 20 Resp: [15-32] SpO2 SpO2: 93 % SpO2: [84 %-100 %] IO 09/03 0701 - 09/04 0700 In: 300 [P.O.:300] Out: 800 [Urine:800] Wt (last/admit) Ins/Outs: Intake/Output Summary (Last 24 hours) at 09/04/2022 0656 Last data filed at 09/04/2022 0527 Gross per 24 hour Intake 300 ml Output 800 ml Net -500 ml Physical exam: Gen: NAD. HEENT: Anicteric. Non-injected. Oropharynx nonerythematous. No exudates. Uvula midline and palate rises symmetrically. CV: RRR. Normal S1 and S2. No M/R/G. Pulm: Absent breath sounds in apical/base of left . Left sided chest tube in place, no appreciable soakage through dressing. Abd: normoactive bowel sounds. Soft, nondistended, nontender. Ext: no edema, clubbing, or cyanosis. Neuro: alert and appropriate. Non-focal. Grossly intact. Psych: cooperative, pleasant Laboratory: CBC: Recent Labs 09/04/2243409/03/22 1100 09/03/22 08 WBC 8.2 7.8 -- HGB 12.4 12.8 -- PLATELET 242 292 281 Chemistry: Recent Labs 09/04/22 04309/03/22 1100 NA 137 139 K 4.2 4.2 CL 105 107 CO2 23 25 BUN 10 11 CREATININE 0.54* 0.70 GLUCOSE 123 176 Recent Labs 09/04/22 04309/03/22 1100 CALCIUM 9.1 8.7 LFT's: Recent Labs 09/03/22 1100 BILITOT <0.2* ALBUMIN 4.1 ALKPHOS 98 ALT 30 AST 25 Coags: Recent Labs 09/03/22818 PT 11.3 INR 1.0 Cardiac enzymes: No results for input(s): TROPONINT, CK, PROBNP in the last 7068 hours. Endocrine: No results for input(s): TSH, CORTISOL in the last 7068 hours. Invalid input(s): [id number] No results for input(s): HA1C in the last 7068 hours. Heme: No results for input(s): LDH, HAPTOGLOBIN, URICACID in the last 168 hours. Lipids: Imaging/Studies: Results for orders placed or performed during the hospital encounter of 09/03/22 XR Chest One View (Exam End: 09/03/2022 2:15 PM) Impression Decreased size of now small left apical pneumothorax. Thank you for letting us participate in the care of this patient. If you are a health care provider and have any questions regarding this report, please contact the number below. For patients who have questions please contact the health care technician that requested your imaging first. Chest One View (Exam End: 09/04/2022 5:16 AM) Impression 1. Unchanged small left apical pneumothorax. 2. Similar appearance of the left upper lobe spiculated nodule. 3. Decreased reticular opacities throughout the left lung consistent with reexpansion edema. Thank you for letting us participate in the care of this patient. If you are a health care provider and have any questions regarding this report, please contact the number below. For patients who have questions please contact the health care technician that requested your imaging first. Scheduled Medications: ??? guaiFENesin ER 1,200 mg Oral BID ??? montelukast 10 mg Oral Nightly ??? sodium chloride 0.9 % (flush) 5 mL Intravenous BID ??? enoxaparin 40 mg Subcutaneous Nightly ??? budesonide 500 mcg Nebulization (R) BID ??? ipratropium-albuteroL 3 mL Nebulization Q6H MEL Infusing Medications: PRN Medications: acetaminophen, sodium chloride 0.9 % (flush), lidocaine, albuteroL Assessment: 56 y.o. female Gena Morales is a 56 y.o. female w/ PMH of metatatic right breast cancer, asthma, and COPD presenting with acute respiratory distress in the setting of a recent percutaneous biopsy of lung nodule complicated by pneumothorax. Overall clinical status seems to be improving with recent chest tube placement and patient reporting improvement in her SOB, but has a persistent air leak thus far. Per IR recommendations, will keep chest tube to -20 today, possible water seal trial tomorrow pending status of her air leak. ?? #Pneumothroax #COPD -Chest tube to -20 cmH2O -Daily CXR -Budesonide nebulizer 500 mcg BID -Albuterol nebulizer 2.5 q6hrs PRN -Ipratropium-albuterol 0.5 - 3 mg q6hrs -Guaifenesin ER 1,200 mg BID -Montelukast 10 mg qhs ?? #Routine: -DVT: Enoxaparin 40 mg qhs - GI: Not indicated - Diet: Regular Diet ?? CODE Status: DNR/DNI Wolfgang Saxena MD [address] Medicine Service Attending Documentation I certify that the patient requires: [x] inpatient care status due to pneumothorax requiring chest tube. [ ] Observation Care Please see Dr. Saxena's note for details of the patient history of presentation and data. I have examined the patient myself and personally reviewed all studies. I have discussed, reviewed and agree with the documented History, Physical findings, Assessment and Plan of care. KEVIN GARCIA MD 09/05/2022 * Flako Zarate RN - 09/03/2022 12:12 PM EST ANGIO NURSING DATABASE Name: Gena Morales Date of : 1965 AGE: 56 y.o. Address: [address] [address] (home) Mobile: Telephone Information: Referring Provider: No ref. provider found REASON FOR VISIT: Order Questions Answers Where will study be performed? [facility] Radiology [120] Laterality Left Is the patient on anticoagulant / antiplatelet therapy ? No Does the patient have any pertinent outside imaging? Yes Reason for exam and clinical history: 56yo with h/o breast cancer treated with radiation and now a CATHERINE 1.1cm PET avid nodule. PET with no LAD involvement and no other sites. Referring for consideration of percutaneous BX. Clinical information / ac questions for radiologist: Pulmonary nodule 1cm or greater in diameter. Planned procedure: Left chest tube repositioning vs placement Labs to be performed day of procedure: No labs Sedation: Fentanyl only Prophylactic antibiotic : None Contrast: No contrast Additional medications for procedure: Lidocaine Planned access site: Left Posterior Thorax Position: Supine Consent: Scanned Medications to discontinue (and days held): None Case Urgency:: D- Intervention within 24 hrs Allergies Allergen Reactions ??? Amoxicillin Pertinent PMH: Patient Active Problem List Diagnosis Code ??? Malignant neoplasm of right breast in female, estrogen receptor positive C50.911, Z17.0 ??? Pneumothorax after biopsy J95.811 Date/Procedure Meds Given/Comments 09/03/2022 Left lung biopsy Versed 2mg IV, Fentanyl 100mcg IV pt developed pneumothorax, chest tubeplaced 09/03/2020 Lt. Chest tube repositioning/replacement Lot #[id number] Compazine 10mg IV Laboratory Results: Lab Results Component Value Date INR 1.0 09/03/2022 Lab Results Component Value Date CREATININE 0.70 09/03/2022 Lab Results Component Value Date K 4.2 09/03/2022 Lab Results Component Value Date PLATELET 292 09/03/2022 documented in this encounter H&P Notes * Jesus Vanessa, [employer]OWERHOU[employer]CH[employer]IC SUPERVISOR - 09/05/2022 9:23 PM EST Critical Care Admission Note Gena Morales is a 56 y.o. female with a PMH significant for metastatic R breast CA, asthma, andCOPD who presents to the ICU from interventional radiology on 09/05 with a PTX and subcutaneous emphysema following percutaneous lung biopsy. HPI: (From H&P by Padmini Garcia, 09/03): Patient with Stage 1A ER/AK +, HER2 - , right sided breast cancer s/p right partial mastectomy and sentinel node excision on 11/20. Patient had a [address] on 07/09/22 which showed a 12mm CATHERINE speculated nodule, 4x6 mm RML nodule, and a 4mm posterior RL base nodule. Followed up PET/CT was done on08/11/22 that showed a solitary 1.1 CATHERINE metabolically active nodule was discovered after which it was planned for percutaneous biopsy for histopathologic diagnosis and staging. During the biopsy, patient developed a large pneumothorax and became hypoxic to the low 80s at which point a pleural catheter was placed with improvement of hypoxia and noticeable decrease in the pneumothorax. Patient then began to tripod and required a non-rebreather to maintain sats in the 90s. In the ED, patient given ipratropium-albuterol nebulizer and methylprednisolone 125 mg x 1 with improvement of respiratory distress. She was recovering on the floor when she was noted to have new crepitus in her neck and anterior chest wall, as well as increased shortness of breath. In addition, she developed new reflux symptoms, anterior neck pain that improved with acetaminophen, and nausea. CXR demonstrated persistent L-sidedPTX with new subcutaneous emphysema. IR was re-consulted and planned for pleural blood patch this afternoon. Unfortunately, she became acutely dyspneic with tripod positioning, and was unable to lay flat stating that she felt as though she were having a panic attack, with markedly elevated blood pressure and tachycardia. She also coughed up some bloody sputum. The procedure was aborted and the HERT team was called. On assessment, she had far more extensive subcutaneous emphysema, extending intoher face, upper extremities, and across her thorax. CCS was consulted and found the drainage tubingfrom the cx tube to be kinked. This kink was resolved with a modest air leak from the pigtail that resolved after a few moments. She was taken for a CT of the chest which revealed an intrafissural placement of the pigtail, tiny residual PTX, and extensive pneumomediastinum and SQ emphysema. ROS: .Review of Systems - Negative except as noted in HPI Past Medical History: Diagnosis Date ??? Asthma ??? COPD (chronic obstructive pulmonary disease) ??? Malignant neoplasm of right breast in female, estrogen receptor positive 09/29/2021 09/07/[address] [facility], [place]: ER/AK+/HER2- right breast IDC, low grade Past Surgical History: Procedure Laterality Date ??? APPENDECTOMY ??? CHOLECYSTECTOMY ??? CT GUIDED BIOPSY LUNG 09/03/2022 CT Guided Biopsy Lung 09/03/2022 Flako Beltrán, DO [facility] RAD CT SCAN ??? CT GUIDED DRAIN CHEST TUBE/PLEURAL DRAIN 09/03/2022 CT Guided Drain Chest Tube/Pleural Drain 09/03/2022 Flako Beltrán, DO [facility] RAD CT SCAN ??? MAMMO US NEEDLE LOCALIZATION RIGHT Right 11/20/2021 Mammo US Needle Localization Right 11/20/2021 Sammie Chong MD [facility] RAD MAMMOGRAPHY ??? PRO BX/REMV, LYMPH NODE, DEEP AXILL Right 11/20/2021 BIOPSY OR EXCISION OF LYMPH NODE(S), OPEN, DEEP AXILLARY NODE(S) (WRVU 6.43) performed by Dylan Kendrick MD at [facility] ??? PRO INTRAOP SENTINEL LYMPH ID W/DYE INJECTION Right 11/20/2021 INTRAOPERATIVE ID (MAPPING) SENTINEL LYMPH NODE,INCLUDES INJECTION (WRVU 2.5) performed by Dylan Kendrick MD at [facility] ??? PRO MASTECTOMY PARTIAL Right 11/20/2021 MASTECTOMY PARTIAL (WRVU 10.13) performed by Dylan Kendrick MD at [facility] ??? TUBAL LIGATION Family History Problem Relation Age of Onset ??? Breast Cancer Neg Hx Social History: Outpatient medications: No current facility-administered medications on file prior to encounter. Current Outpatient Medications on File Prior to Encounter Medication Sig Dispense Refill ??? Breztri Aerosphere 160-9-4.8 mcg/actuation HFA Aerosol Inhaler Inhale 2 puffs into the lungs 2 times daily. ??? levoFLOXacin (Levaquin) 750 mg Tablet Take 750 mg by mouth daily. ??? Advair HFA 230-21 mcg/actuation HFA Aerosol Inhaler ??? guaiFENesin ER (Mucinex) 600 mg Tablet Extended Release 12hr Take 1,200 mg by mouth 2 times daily. ??? ibuprofen (Advil) 200 mg Tablet Take 200 mg by mouth every 6 hours as needed for Pain. ??? loratadine (Claritin) 10 mg Tablet Take 10 mg by mouth daily. ??? acetaminophen (Tylenol) 500 mg Tablet Take 1,000 mg by mouth every 6 hours as needed for Pain. ??? albuteroL 90 mcg/actuation HFA Aerosol Inhaler ??? montelukast (Singulair) 10 mg Tablet Take 10 mg by mouth nightly. ??? ipratropium-albuteroL (Duoneb) 0.5 mg-3 mg(2.5 mg base)/3 mL Solution for Nebulization Take 3 mLs by nebulization every 4 hours as needed. ??? albuteroL (Proventil, Ventolin) (2.5 mg/3 mL) (0.083 %) Solution for Nebulization Take 3 mLs bynebulization every 4 hours as needed for Wheezing or Shortness of Breath. ??? hohqixnvpuj-mqwlxqgpnzec-gjbnwunpwg (Trelegy Ellipta) 200-62.5-25 mcg Inhale 1 puff into the lungs daily. ??? budesonide (Pulmicort) 0.5 mg/2 mL Suspension for Nebulization Take 0.5 mg by nebulization daily. Allergies Allergen Reactions ??? Amoxicillin Last value Range last 24 hrs Temperature Temp: 36.6 ??C (97.9 ??F) Temp: [36.3 ??C (97.3 ??F)-36.6 ??C (97.9 ??F)] Heart Rate Heart Rate: (!) 111 Heart Rate: [103-142] Blood Pressure BP: 125/62 BP: (111-235)/(62-181) Respiratory Rate Resp: 23 Resp: [16-31] SpO2 SpO2: 95 % SpO2: [90 %-99 %] Art BP BP (Arterial Line): -- Ventilator Settings: Nasal cannula at 2 lpm Physical Exam: General: Female pt seated in bed HEENT: Extensive SQ emphysema in face, head, neck, chest. No evidence of airway compromise, no stridor. Trachea midline Neuro: A&)x3, GCS 15. PERR. No focal motor deficit Pulmonary: Lungs diminished bilaterally Cardiovascular: S1S2, RRR, no MRG. DP.radial pulse 2+ Abdomen: Soft, nontender : Voids PRN Extremities: WDI Skin: As above Labs: Last 3 wbc, hgb, hct plt Recent Labs 09/05/22 0548 09/04/22 0435 09/03/22 1100 WBC 8.2 8.2 7.8 HGB 12.4 12.4 12.8 HCT 36.8 35.8 39.5 PLATELET 254 242 292 Last 3 Lytes Recent Labs 09/05/22 0548 09/04/22 0435 09/03/22 1100 NA 141 137 139 K 3.9 4.2 4.2 CL 108* 105 107 CO2 23 23 25 BUN 15 10 11 CREATININE 0.60* 0.54* 0.70 Last 3 LFTs Recent Labs 09/03/22 1100 AST 25 ALT 30 ALKPHOS 98 BILITOT <0.2* Last Ca, Mg, Phos Recent Labs 09/05/22 0548 CALCIUM 8.9 Last 3 Coags Recent Labs 09/03/22 0819 PT 11.3 INR 1.0 Microbiology: Microbiology Results (Last 30 days) No results found for the last 720 hours. ECG: Sinus tachycardia Low voltage QRS Anterolateral infarct (cited on or before 03-SEP-2022) Imaging: Results for orders placed or performed during the hospital encounter of 09/03/22 XR Chest One View (Exam End: 09/03/2022 2:15 PM) Impression Decreased size of now small left apical pneumothorax. Thank you for letting us participate in the care of this patient. If you are a health care provider and have any questions regarding this report, please contact the number below. For patients who have questions please contact the health care technician that requested your imaging first. Chest One View (Exam End: 09/04/2022 5:16 AM) Impression 1. Unchanged small left apical pneumothorax. 2. Similar appearance of the left upper lobe spiculated nodule. 3. Decreased reticular opacities throughout the left lung consistent with reexpansion edema. Thank you for letting us participate in the care of this patient. If you are a health care provider and have any questions regarding this report, please contact the number below. For patients who have questions please contact the health care technician that requested your imaging first. Chest One View (Exam End: 09/05/2022 6:38 AM) Impression Stable small left apical pneumothorax. Worsening chest wall subcutaneous emphysema. Thank you for letting us participate in the care of this patient. If you are a health care provider and have any questions regarding this report, please contact the number below. For patients who have questions please contact the health care technician that requested your imaging first. Chest One View (Exam End: 09/04/2022 12:08 PM) Impression Stable to minimally decreased small left apical pneumothorax. Unchanged left subcutaneous emphysema. Left-sided chest tube remains in place. Thank you for letting us participate in the care of this patient. If you are a health care provider and have any questions regarding this report, please contact the number below. For patients who have questions please contact the health care technician that requested your imaging first. Chest One View (Exam End: 09/05/2022 5:53 PM) Impression Enlarging left pneumothorax. Unexpected finding. Thank you for letting us participate in the care of this patient. If you are a health care provider and have any questions regarding this report, please contact the number below. For patients who have questions please contact the health care technician that requested your imaging first. Chest wo Contrast (Generic) (Exam End: 09/05/2022 8:32 PM) Impression * Intrafissural termination of posterior approach LEFT pigtail catheter, with a trace pneumothorax anteriorly; no catheter kink appreciated although the metallic marker is just at the edge of the allen-pleural thoracic cage. * Extensive pneumomediastinum, with large amount of external soft tissue air. * Probable pulmonary edema most apparent in the CATHERINE; more prominent superimposed patchy opacities could be infectious/inflammatory. Thank you for letting us participate in the care of this patient. If you are a health care provider and have any questions regarding this report, please contact the number below. For patients who have questions please contact the health care technician that requested your imaging first. Assessment: 56 y.o. female with extensive subcutaneous emphysema and pneumomediastinum following iatrogenic PTX 2/2 lung biopsy. She has no evidence of airway compromise, and although intrafissural her pigtail has almost completely resolved her PTX. Her acute change coinciding with the development of a drainable air pocket may have been due to a kinked drainage system. Plan: Neuro: ?? No active issues Pulm: ?? Maintain pigtail to -20 cm suction ?? Drainage tubing splinted to reduce odds of further occlusion ?? Proximal drainage port on pigtail is close to the chest wall- if further event or decompensationwould be suspicious for tube migration which may necessitate emergent replacement ?? Trial NRB to help with resorption ?? Continue budesonide, duonebs, montelukast ?? Received 125 mg methylprednisolone on 09/03, possibly some component of COPD/asthma contributing, continue prednisone 40 daily CV: ?? Suspect hypertensive episode occurred in response to distress over worsening PTX ?? PRN labetalol GI: ?? Ondansetron for nausea, may be due to pneumomediastinum Renal/FEK: ?? No active issues ?? Replete lytes PRN Hematology/Oncology: - Continue enoxaparin ID: ?? No active issues Endocrine: ?? SSI Other prophylaxis: Enoxaparin for DVT prophylaxis N/A for GI prophylaxis HOB > 30 Chlorhexidine mouth care N Mepliex to sacrum PT/OT: Lines/Tubes/Drains: PIVs Consults: Decision Making: Patient Code Status: DNR, may intubate Jesus Vanessa APRN September 05, 2022 Critical Care Green Team (pager [phone]) Dr. Borjas is the attending of record for this admission * Marla Borjas MD - 09/05/2022 8:22 PM EST MICU STAFF ADMISSION NOTE Critical Care Medicine Author: Marla Borjas MD Patient seen and examined on admission to the ICU. Gena Morales is a 56 y.o. female with breastcancer diagnosed 2020 s/p martial mastectomy and radiation therapy (ending 02/2022), COPD, admitted with complication of left pneumothorax following IR biopsy of pet-avid dominant CATHERINE lung nodule on 09/03/2022. Lung nodule was seen on CT on 07/09/2022. A left posterior chest pigtail drain was placed on 09/03/2022 for decompression of the large and symptomatic pneumothorax, however there was a persistent air leak while on suction. She was treated with solumedrol and duonebs for possible COPD exacerbation on admission as well. Early this morning she developed some subcutaneous emphysema on chest. She returned to IR suite this afternoon for a blood patch procedure however this was aborted when she developed hypertension to 230s/140, tachycardia, then dyspnea and hypoxia requiring NRB; hypertension, tachycardia and oxygenation all improved some with labetalol, though she still reports some dyspnea. A little bit later she developed increased swelling in chest/face/neck with finding of increased subcutaneous crepitus, though she reports dyspnea is a bit better; at that time we found that her chest pigtail drain was kinked and when unkinking it saw release of some air. She is nauseous, but denies chest pain. Active problems: Pneumothorax, left Hypoxia Lung nodules (CATHERINE, RML, MLL) Subcutaneous emphysema Dyspnea Breast cancer, suspected metastatic PMH: Breast cancer Lung nodules Prior smoker EXAM: Alert, sitting upright, mildly uncomfortable appearing but not in distress There is moderate crepitus on face, lateral neck, anterior chest, posterior upper chest most notably over bandaged site of prior biopsy RRR, quiet heart sounds, no murmur Normal WOB, decreased breath sounds throughout, no crackles, symmetric exam, left chest pigtail drain with small intermittent air leak Abd soft, NT/ND Extremities warm, no edema [facility] [place] labs and studies: WBC 8 Hgb 12.4 Cr 0.6 CXR 5 pm today shows significant subcutaneous emphysema in soft tissues, and recurrent left upper pneumothorax, chest pigtail in place ASSESSMENT, MANAGEMENT, and DECISION MAKIN56 y/o woman with history of breast cancer s/p partial mastectomy and radiation therapy ending in 02/2022, with multiple lung nodules concerning for metastatic disease, transferred to MICU from hospital floor for worsening respiratory status in the setting of persistent left pneumothorax, new and escalating subcutaneous emphysema and hypertensive urgency this afternoon. Chest xray from 5 PM shows increased size of left pneumothorax despite pigtail drain being in place; on our exam of her at timeof MICU evaluation the chest tube was significantly coiled and kinked, and when unkinked there was release of air; I suspect ineffective drainage of pneumothorax contributed to the increase in subcutaneous emphysema today. Unclear what caused hypertensive urgency this afternoon, consider whether she has mediastinal emphysema as well vs anxiety about procedure or respiratory distress acellerating her BP today. With subcutaneous emphysema spread to neck and borderline respiratory failure from variable pneumothorax she is being admitted to the MICU for close monitoring of airway and respiratory status. May need additional intervention to decompression pneumothorax this evening pending clinicalcourse and imaging. Plan at this time: - chest/neck CT now to better assess chest tube and pneumothorax, degree of subcutaneous emphysema and assess for airway compromise - currently on oxygen by PR, monitor closely - low threshold to intubate for airway protection if worsening dyspnea - duonebs scheduled - currently on pulmicort nebs; add prednisone burst for potential COPD exacerbation - home maggie katzfenesin - goal SBP < 160; okay to redose labetalol PRN - lovenox ppx - biopsy results from 09/03/2022 reported as pulmonary parenchyma with non- specific chronic inflammation and scar; no evidence of malignancy in biopsy sample, however given CATHERINE nodule was spiculated,PET-avid and new this will need multidisciplinary discussion regarding whether to pursue additionaltesting (consider repeat biopsy vs close interval CT scan); will defer to day team to discuss with her oncologists once respiratory situation is stabilized CODE: She is DNR, okay with receiving respiratory support including intubation if necessary. IS PATIENT CRITICALLY ILL ? Is there a high potential of sudden, clinically significant, or life threatening deterioration? Yes Is there a need for direct personal assessment and management to treat/prevent multiple vital organfailure/deterioration? Yes If this patient is not critically ill, I certify the patient requires in-patient hospitalization for [] PATIENT IS CRITICALLY ILL WITH THESE DIAGNOSES BEING MANAGED BY [facility] TEAM: Hypertension/Hypertensive Urgency Respiratory Failure Acute with hypoxia I personally performed 60 minutes of aggregate critical care time exclusive of procedures and teaching. This includes time spent during direct patient evaluation and reassessment, interpreting diagnostic tests, directing life and/or organ supporting interventions and documentation on the unit. Marla Borjas MD * Flako Beltrán, DO - 09/05/2022 5:07 PM EST INTERVENTIONAL RADIOLOGY FOCUSED H&P: Procedure: Left Apical Pleural Catheter Placement Update to H&P: The patient's history and physical exam have been reviewed and completed. There has been NO interval change from that of the pre-procedural note done within the last 30 days. There is NO change in the procedural plan. Physical Exam: Cardiovascular: Regular, Normal Pulmonary: Decreased with inspiratory and expiratory wheezes. Meds: Current medications reviewed. No medications held. Labs: No new relevant labs. The planned procedure (and sedation plan if appropriate) , its benefits and risks, and alternativeswere discussed with the patient. The patient consented to the procedure. PRE-SEDATION ASSESSMENT: Sedation Plan: moderate (conscious sedation) ASA: 3: Patient with severe systemic disease Mallampati: II: tonsillar pillars are blocked by the tongue Confirm NPO status: Yes History of anesthetic complications: No Current medications reviewed: Yes Allergies reviewed: Yes Source Note - Janes Haney MD - 09/05/2022 7:09 AM EST Images from the original note were not included. INTERVENTIONAL RADIOLOGY FOCUSED H&P and PRE-PROCEDURE NOTE: PCP: Brittany Wynne MD Referring Provider: Dr. Haney/Dr. Beltrán Planned Procedure: Planned procedure: Left pleural blood patch Procedure Indication: persistent pneumothorax following biopsy with plan for blood patch Procedure Request: Procedure request received through the Interventional Radiology eDH order queue. Presenting Diagnosis/ Complaint: Gena Morales is a 56 y.o. female with PMHx sig for COPD, asthma, right breast cancer, admitted with pneumothorax following CT-guided left upper lobe nodule biopsyrequiring chest tube placement. Hospital course has been complicated by 2 days of persistent left apical pneumothorax and air leak with chest x-ray findings of increased subcutaneous air in the neck b ase and left lateral chest wall. Patient remains on on 4 L by nasal cannula with intermittent shortness of breath. Past Medical/Surgical History: Patient Active Problem List Diagnosis Code ??? Malignant neoplasm of right breast in female, estrogen receptor positive C50.911, Z17.0 ??? Pneumothorax after biopsy J95.811 Past Medical History: Diagnosis Date ??? Asthma ??? COPD (chronic obstructive pulmonary disease) ??? Malignant neoplasm of right breast in female, estrogen receptor positive 09/29/2021 09/07/21 [facility], [place]: ER/AK+/HER2- right breast IDC, low grade Past Surgical History: Procedure Laterality Date ??? APPENDECTOMY ??? CHOLECYSTECTOMY ??? CT GUIDED BIOPSY LUNG 09/03/2022 CT Guided Biopsy Lung 09/03/2022 Flako Beltrán, DO [facility] RAD CT SCAN ??? CT GUIDED DRAIN CHEST TUBE/PLEURAL DRAIN 09/03/2022 CT Guided Drain Chest Tube/Pleural Drain 09/03/2022 Flako Beltrán, DO [facility] RAD CT SCAN ??? MAMMO US NEEDLE LOCALIZATION RIGHT Right 11/20/2021 Mammo US Needle Localization Right 11/20/2021 Sammie Chong MD [facility] RAD MAMMOGRAPHY ??? PRO BX/REMV, LYMPH NODE, DEEP AXILL Right 11/20/2021 BIOPSY OR EXCISION OF LYMPH NODE(S), OPEN, DEEP AXILLARY NODE(S) (WRVU 6.43) performed by Dylan Kendrick MD at [facility] ??? PRO INTRAOP SENTINEL LYMPH ID W/DYE INJECTION Right 11/20/2021 INTRAOPERATIVE ID (MAPPING) SENTINEL LYMPH NODE,INCLUDES INJECTION (WRVU 2.5) performed by Dylan Kendrick MD at [facility] ??? PRO MASTECTOMY PARTIAL Right 11/20/2021 MASTECTOMY PARTIAL (WRVU 10.13) performed by Dylan Kendrick MD at [facility] ??? TUBAL LIGATION Medications: No current facility-administered medications on file prior to encounter. Current Outpatient Medications on File Prior to Encounter Medication Sig Dispense Refill ??? Breztri Aerosphere 160-9-4.8 mcg/actuation HFA Aerosol Inhaler Inhale 2 puffs into the lungs 2 times daily. ??? levoFLOXacin (Levaquin) 750 mg Tablet Take 750 mg by mouth daily. ??? Advair HFA 230-21 mcg/actuation HFA Aerosol Inhaler ??? guaiFENesin ER (Mucinex) 600 mg Tablet Extended Release 12hr Take 1,200 mg by mouth 2 times daily. ??? ibuprofen (Advil) 200 mg Tablet Take 200 mg by mouth every 6 hours as needed for Pain. ??? loratadine (Claritin) 10 mg Tablet Take 10 mg by mouth daily. ??? acetaminophen (Tylenol) 500 mg Tablet Take 1,000 mg by mouth every 6 hours as needed for Pain. ??? albuteroL 90 mcg/actuation HFA Aerosol Inhaler ??? montelukast (Singulair) 10 mg Tablet Take 10 mg by mouth nightly. ??? ipratropium-albuteroL (Duoneb) 0.5 mg-3 mg(2.5 mg base)/3 mL Solution for Nebulization Take 3 mLs by nebulization every 4 hours as needed. ??? albuteroL (Proventil, Ventolin) (2.5 mg/3 mL) (0.083 %) Solution for Nebulization Take 3 mLs bynebulization every 4 hours as needed for Wheezing or Shortness of Breath. ??? nmtmxxosgaq-zwysmzshgfjg-kvzwxjuwew (Trelegy Ellipta) 200-62.5-25 mcg Inhale 1 puff into the lungs daily. ??? budesonide (Pulmicort) 0.5 mg/2 mL Suspension for Nebulization Take 0.5 mg by nebulization daily. Allergies: Amoxicillin Social History and Habits: Social History Socioeconomic History ??? Marital status: Spouse name: Not on file ??? Number of children: Not on file ??? Years of education: Not on file ??? Highest education level: Not on file Occupational History ??? Not on file Tobacco Use ??? Smoking status: Former Packs/day: 0.50 Types: Cigarettes Quit date: 12/17/2021 Years since quittin.7 ??? Smokeless tobacco: Never Vaping Use ??? Vaping Use: Former Substance [...] Labs: Lab Results Component Value Date WBC 8.2 09/05/2022 HCT 36.8 09/05/2022 PLATELET 254 09/05/2022 INR 1.0 09/03/2022 BUN 15 09/05/2022 CREATININE 0.60 (L) 09/05/2022 ALKPHOS 98 09/03/2022 AST 25 09/03/2022 ALBUMIN 4.1 09/03/2022 BILITOT <0.2 (L) 09/03/2022 ALT 30 09/03/2022 PROT 6.7 09/03/2022 K 3.9 09/05/2022 Imaging: Physical Exam: Gen: NAD, AOx3 Heart: RRR PULM: wheezes bilaterally, decreased breath sounds left upper lung Abd: Soft, nontender ASA: Pending (to be assessed in angio the day of procedure) Mallampati Class: Pending (to be assessed in angio the day of procedure) Assessment: 56 y.o. female with PMHx sig for COPD, asthma, right breast cancer, admitted with pneumothorax following CT-guided left upper lobe nodule biopsy requiring chest tube placement. Hospital course has been complicated by 2 days of persistent left apical pneumothorax and air leak with chest x-ray findings of increased subcutaneous air in the neck base and left lateral chest wall. Patient remains on on 4 L by nasal cannula with intermittent shortness of breath. Benefits and risks of bloodpatch were discussed with the patient who would like to proceed. Reviewed with Attending: Dr. Beltrán Plan: Planned procedure: Left pleural blood patch Labs to be performed day of procedure: No labs Sedation: No Sedation Prophylactic antibiotic : None Contrast: No contrast Additional medications for procedure: Lidocaine Planned access site: left chest tube Position: Supine Consent: Pending Medications to discontinue (and days held): None Case Urgency:: D- Intervention within 24 hrs 09/05/2022 * Janes Haney MD - 09/05/2022 7:09 AM EST Images from the original note were not included. INTERVENTIONAL RADIOLOGY FOCUSED H&P and PRE-PROCEDURE NOTE: PCP: Brittany Wynne MD Referring Provider: Dr. Haney/Dr. Beltrán Planned Procedure: Planned procedure: Left pleural blood patch Procedure Indication: persistent pneumothorax following biopsy with plan for blood patch Procedure Request: Procedure request received through the Interventional Radiology eDH order queue. Presenting Diagnosis/ Complaint: Gena Morales is a 56 y.o. female with PMHx sig for COPD, asthma, right breast cancer, admitted with pneumothorax following CT-guided left upper lobe nodule biopsyrequiring chest tube placement. Hospital course has been complicated by 2 days of persistent left apical pneumothorax and air leak with chest x-ray findings of increased subcutaneous air in the neck b ase and left lateral chest wall. Patient remains on on 4 L by nasal cannula with intermittent shortness of breath. Past Medical/Surgical History: Patient Active Problem List Diagnosis Code ??? Malignant neoplasm of right breast in female, estrogen receptor positive C50.911, Z17.0 ??? Pneumothorax after biopsy J95.811 Past Medical History: Diagnosis Date ??? Asthma ??? COPD (chronic obstructive pulmonary disease) ??? Malignant neoplasm of right breast in female, estrogen receptor positive 09/29/2021 09/07/21 [facility] [place], [place]: ER/AK+/HER2- right breast IDC, low grade Past Surgical History: Procedure Laterality Date ??? APPENDECTOMY ??? CHOLECYSTECTOMY ??? CT GUIDED BIOPSY LUNG 09/03/2022 CT Guided Biopsy Lung 09/03/2022 Flako Beltrán, DO [facility] RAD CT SCAN ??? CT GUIDED DRAIN CHEST TUBE/PLEURAL DRAIN 09/03/2022 CT Guided Drain Chest Tube/Pleural Drain 09/03/2022 Flako Beltrán, DO [facility] RAD CT SCAN ??? MAMMO US NEEDLE LOCALIZATION RIGHT Right 11/20/2021 Mammo US Needle Localization Right 11/20/2021 Sammie Chong MD [facility] RAD MAMMOGRAPHY ??? PRO BX/REMV, LYMPH NODE, DEEP AXILL Right 11/20/2021 BIOPSY OR EXCISION OF LYMPH NODE(S), OPEN, DEEP AXILLARY NODE(S) (WRVU 6.43) performed by Dylan Kendrick MD at [facility] ??? PRO INTRAOP SENTINEL LYMPH ID W/DYE INJECTION Right 11/20/2021 INTRAOPERATIVE ID (MAPPING) SENTINEL LYMPH NODE,INCLUDES INJECTION (WRVU 2.5) performed by Dylan Kendrick MD at [facility] ??? PRO MASTECTOMY PARTIAL Right 11/20/2021 MASTECTOMY PARTIAL (WRVU 10.13) performed by Dylan Kendrick MD at [facility] ??? TUBAL LIGATION Medications: No current facility-administered medications on file prior to encounter. Current Outpatient Medications on File Prior to Encounter Medication Sig Dispense Refill ??? Breztri Aerosphere 160-9-4.8 mcg/actuation HFA Aerosol Inhaler Inhale 2 puffs into the lungs 2 times daily. ??? levoFLOXacin (Levaquin) 750 mg Tablet Take 750 mg by mouth daily. ??? Advair HFA 230-21 mcg/actuation HFA Aerosol Inhaler ??? guaiFENesin ER (Mucinex) 600 mg Tablet Extended Release 12hr Take 1,200 mg by mouth 2 times daily. ??? ibuprofen (Advil) 200 mg Tablet Take 200 mg by mouth every 6 hours as needed for Pain. ??? loratadine (Claritin) 10 mg Tablet Take 10 mg by mouth daily. ??? acetaminophen (Tylenol) 500 mg Tablet Take 1,000 mg by mouth every 6 hours as needed for Pain. ??? albuteroL 90 mcg/actuation HFA Aerosol Inhaler ??? montelukast (Singulair) 10 mg Tablet Take 10 mg by mouth nightly. ??? ipratropium-albuteroL (Duoneb) 0.5 mg-3 mg(2.5 mg base)/3 mL Solution for Nebulization Take 3 mLs by nebulization every 4 hours as needed. ??? albuteroL (Proventil, Ventolin) (2.5 mg/3 mL) (0.083 %) Solution for Nebulization Take 3 mLs bynebulization every 4 hours as needed for Wheezing or Shortness of Breath. ??? bzfakljvtbi-sbjjzndxdbof-nxmchbuslq (Trelegy Ellipta) 200-62.5-25 mcg Inhale 1 puff into the lungs daily. ??? budesonide (Pulmicort) 0.5 mg/2 mL Suspension for Nebulization Take 0.5 mg by nebulization daily. Allergies: Amoxicillin Social History and Habits: Social History Socioeconomic History ??? Marital status: Spouse name: Not on file ??? Number of children: Not on file ??? Years of education: Not on file ??? Highest education level: Not on file Occupational History ??? Not on file Tobacco Use ??? Smoking status: Former Packs/day: 0.50 Types: Cigarettes Quit date: 12/17/2021 Years since quittin.7 ??? Smokeless tobacco: Never Vaping Use ??? Vaping Use: Former Substance [...] Labs: Lab Results Component Value Date WBC 8.2 09/05/2022 HCT 36.8 09/05/2022 PLATELET 254 09/05/2022 INR 1.0 09/03/2022 BUN 15 09/05/2022 CREATININE 0.60 (L) 09/05/2022 ALKPHOS 98 09/03/2022 AST 25 09/03/2022 ALBUMIN 4.1 09/03/2022 BILITOT <0.2 (L) 09/03/2022 ALT 30 09/03/2022 PROT 6.7 09/03/2022 K 3.9 09/05/2022 Imaging: Physical Exam: Gen: NAD, AOx3 Heart: RRR PULM: wheezes bilaterally, decreased breath sounds left upper lung Abd: Soft, nontender ASA: Pending (to be assessed in angio the day of procedure) Mallampati Class: Pending (to be assessed in angio the day of procedure) Assessment: 56 y.o. female with PMHx sig for COPD, asthma, right breast cancer, admitted with pneumothorax following CT-guided left upper lobe nodule biopsy requiring chest tube placement. Hospital course has been complicated by 2 days of persistent left apical pneumothorax and air leak with chest x-ray findings of increased subcutaneous air in the neck base and left lateral chest wall. Patient remains on on 4 L by nasal cannula with intermittent shortness of breath. Benefits and risks of bloodpatch were discussed with the patient who would like to proceed. Reviewed with Attending: Dr. Beltrán Plan: Planned procedure: Left pleural blood patch Labs to be performed day of procedure: No labs Sedation: No Sedation Prophylactic antibiotic : None Contrast: No contrast Additional medications for procedure: Lidocaine Planned access site: left chest tube Position: Supine Consent: Pending Medications to discontinue (and days held): None Case Urgency:: D- Intervention within 24 hrs 09/05/2022 * Kevin Garcia MD - 09/03/2022 12:11 PM EST Images from the original note were not included. [facility] (#[id number]) History and Physical Patient info: Name: Gena Morales : 1965 PCP: Brittany Wynne MD PCP phone number: [phone] Date of Admission: 09/03/2022 ( Hospital Day 0 days ) Responsible Attending:Kevin Garcia MD Active Hospital Problems Diagnosis ??? Pneumothorax after biopsy Resolved Hospital Problems No resolved problems to display. Active Non-Hospital Problems Diagnosis ??? Malignant neoplasm of right breast in female, estrogen receptor positive ID: Gena Morales is a 56 y.o. female w/ PMH of metatatic right breast cancer, asthma, and COPD presenting with acute respiratory distress in the setting of a recent pulmonary percutaneous biopsy with concern for pneumothorax. HPI: Patient with Stage 1A ER/AK +, HER2 - , right sided breast cancer s/p right partial mastectomy and sentinel node excision on 11/20. Patient had a [address] on 07/09/22 which showed a 12mm CATHERINE speculated nodule, 4x6 mm RML nodule, and a 4mm posterior RL base nodule. Followed up PET/CT was done on08/11/22 that showed a solitary 1.1 CATHERINE metabolically active nodule was discovered after which it was planned for percutaneous biopsy for histopathologic diagnosis and staging. During the biopsy, patient developed a large pneumothorax and became hypoxic to the low 80s at which point a pleural catheter was placed with improvement of hypoxia and noticeable decrease in the pneumothorax. Patient then began to tripod and required a non-rebreather to maintain sats in the 90s. In the ED, patient given ipratropium-albuterol nebulizer and methylprednisolone 125 mg x 1 with improvement of respiratory distress. Currently, patient only complaining of some mild nausea as well as some pain around her insertion site. Pain currently rated a 5/10, from an 8/10 on presentation, described as a gas bubble. The pain is unaffected by inspiration or movement stating it, occurs all the time. Otherwise denies otherchest pain, palpitations, headache, changes in vision/hearing, abdominal pain, vomiting, fever, or new weakness/changes in sensation. ROS: Positive findings are BOLDED. GEN: Fever, chills, fatigue, nocturnal hyperhydrosis, unexpected weight change, anorexia. HEENT: Change in vision, hearing, smell, taste. Pharyngodynia, rhinorrhea. CV: chest pain, palpitations, orthopnea, paroxysmal noctural dyspnea, claudication PULM: dyspnea, cough, wheezing, sputum production ABD: abdominal pain, dysphagia, odynophagia, nausea, vomiting, diarrhea, constipation, melena, hematochezia. : dysuria, hematuria NEURO: anesthesia, paresthesia, asymmetric weakness, headache, photophobia, or phonophobia. SKIN: rashes, ulcers HEM: Bleeding, bruising, history of blood clots MSK: arthralgia, arthritis, myalgia, history of bone fracture, history of hip fracture in parent. PSYCH: Depression, anhedonia, suicidal ideation, homicidal ideation Past Medical History: Diagnosis Date ??? Asthma ??? COPD (chronic obstructive pulmonary disease) ??? Malignant neoplasm of right breast in female, estrogen receptor positive 09/29/2021 09/07/21 [facility] [place], [place]: ER/AK+/HER2- right breast IDC, low grade Past Surgical History: Procedure Laterality Date ??? APPENDECTOMY ??? CHOLECYSTECTOMY ??? CT GUIDED BIOPSY LUNG 09/03/2022 CT Guided Biopsy Lung 09/03/2022 Flaok Beltrán, DO [facility] RAD CT SCAN ??? CT GUIDED DRAIN CHEST TUBE/PLEURAL DRAIN 09/03/2022 CT Guided Drain Chest Tube/Pleural Drain 09/03/2022 Flako Beltrán, DO [facility] RAD CT SCAN ??? MAMMO US NEEDLE LOCALIZATION RIGHT Right 11/20/2021 Mammo US Needle Localization Right 11/20/2021 Sammie Chong MD [facility] RAD MAMMOGRAPHY ??? PRO BX/REMV, LYMPH NODE, DEEP AXILL Right 11/20/2021 BIOPSY OR EXCISION OF LYMPH NODE(S), OPEN, DEEP AXILLARY NODE(S) (WRVU 6.43) performed by Dylan Kendrick MD at [facility] ??? PRO INTRAOP SENTINEL LYMPH ID W/DYE INJECTION Right 11/20/2021 INTRAOPERATIVE ID (MAPPING) SENTINEL LYMPH NODE,INCLUDES INJECTION (WRVU 2.5) performed by Dylan Kendrick MD at [facility] ??? PRO MASTECTOMY PARTIAL Right 11/20/2021 MASTECTOMY PARTIAL (WRVU 10.13) performed by Dylan Kendrick MD at [facility] ??? TUBAL LIGATION Family History Problem Relation Age of Onset ??? Breast Cancer Neg Hx Social History Socioeconomic History ??? Marital status: Spouse name: Not on file ??? Number of children: Not on file ??? Years of education: Not on file ??? Highest education level: Not on file Occupational History ??? Not on file Tobacco Use ??? Smoking status: Former Packs/day: 0.50 Types: Cigarettes Quit date: 12/17/2021 Years since quittin.7 ??? Smokeless tobacco: Never Vaping Use ??? Vaping Use: Former Substance [...] Unstable Housing in the Last Year: No (Not in a hospital admission) Allergies Allergen Reactions ??? Amoxicillin Objective: Vitals Last value Range last 24 hrs Temperature Temp: [36.3 ??C (97.4 ??F)] Heart Rate Heart Rate: 97 Heart Rate: [90-101] Blood Pressure BP: (!) 137/92 BP: (108-176)/(53-131) Art Line BP BP (Arterial Line): -- MAP (NBP): [80 mmHg-138 mmHg] Respiratory Rate Resp: 22 Resp: [15-32] SpO2 SpO2: 94 % SpO2: [84 %-100 %] Oxygen Delivery Oxygen Therapy O2 Device: Non-rebreather mask O2 Flow Rate (L/min): 15 L/min No intake or output data in the 24 hours ending 09/03/22 1211 No data found. Admit wt: Physical Exam: Gen: NAD. HEENT: Anicteric. Non-injected. Oropharynx nonerythematous. No exudates. Uvula midline and palate rises symmetrically. CV: RRR. Normal S1 and S2. No M/R/G. Pulm: clear to ascultation bilaterally in the posterior lung de león. Left sided chest tube in place, no appreciable soakage through dressing. Abd: normoactive bowel sounds. Soft, nondistended, nontender. Ext: no edema, clubbing, or cyanosis. Neuro: alert and appropriate. Non-focal. Grossly intact. Psych: cooperative, pleasant Lines/Tubes/Drains Peripheral IV Line - Single Lumen 09/03/22 0852 cephalic vein (lateral side of arm), left 20 gauge (Active) Site Preparation/Maintenance site cleansed: chlorhexidine solution 09/03/22 08 Patency/Maintenance flushed without difficulty;blood return, able to obtain 09/03/22 08 Phlebitis 0-->no symptoms 09/03/22 08 Infiltration 0-->no symptoms 09/03/22 08 Site Signs/Symptoms no drainage;no pain 09/03/22 08 Number of days: 0 Peripheral IV Line - Single Lumen 09/03/22 1106 median cubital vein (antecubital fossa), left 18 gauge (Active) Number of days: 0 Chest Tube 09/03/22 0959 Left (Active) Number of days: 0 Medications: ??? acetaminophen 1,000 mg Oral Once ### Labs: CBC: Recent Labs 09/03/22 1100 09/03/22 08 WBC 7.8 -- HGB 12.8 -- HCT 39.5 -- PLATELET 292 281 NEUTROABS 4.17 -- Chemistry: Recent Labs 09/03/22 1100 NA 139 K 4.2 CL 107 CO2 25 BUN 11 CREATININE 0.70 GLUCOSE 176 ANIONGAP 7 Recent Labs 09/03/22 1100 CALCIUM 8.7 LFT's: Recent Labs 09/03/22 1100 BILITOT <0.2* ALBUMIN 4.1 ALKPHOS 98 ALT 30 AST 25 Coags: Recent Labs 09/03/22 08 PT 11.3 INR 1.0 Cardiac enzymes: No results for input(s): TROPONINT, CK, PROBNP in the last 7068 hours. Endocrine: No results for input(s): TSH, CORTISOL in the last 7068 hours. Invalid input(s): [id number] No results for input(s): HA1C in the last 7068 hours. Heme: No results for input(s): LDH, HAPTOGLOBIN, URICACID in the last 168 hours. ABG: ABG (Arterial Blood Gas) Lab Results Component Value Date pH Art 7.26 (CRIT) 09/03/2022 pO2 Art 106 (H) 09/03/2022 pCO2 Art 48 (H) 09/03/2022 Microbiology: Site Date and Time Obtained Result Notes Pertinent radiology/diagnostic studies: Results for orders placed or performed during the hospital encounter of 09/03/22 XR Chest One View (Exam End: 09/03/2022 2:15 PM) Impression Decreased size of now small left apical pneumothorax. Thank you for letting us participate in the care of this patient. If you are a health care provider and have any questions regarding this report, please contact the number below. For patients who have questions please contact the health care technician that requested your imaging first. SSMENT/PLAN: Gena Morales is a 56 y.o. female w/ PMH of metatatic right breast cancer, asthma, and COPD presenting with acute respiratory distress in the setting of a recent percutaneous biopsy of a lung nodule complicated by pneumothorax. Overall clinical status seems to be improving with chest tube placement and treatment in ED. Will continue to monitor for signs of worsening respiratory function. # Pneumothorax # COPD -Chest tube to continuous wall suction -20 cmH2O -serial CXR's to monitor for resolution -pain control -supplemental O2 -Budesonide nebulizer 500 mcg BID -Albuterol nebulizer 2.5 q6hrs PRN -Ipratropium-albuterol 0.5 - 3 mg q6hrs -Guaifenesin ER 1,200 mg BID -Montelukast 10 mg qhs #Routine: -DVT: Enoxaparin 40 mg qhs - GI: Not indicated - Diet: NPO (Give Meds) CODE Status: DNR/DNI Wolfgang Saxena MD, PGY-1 09/03/2022 [facility] # [id number] Attending Staff Admission Documentation I have examined the patient myself on 09/03/2022 and reviewed all labs and studies personally. Please see Dr. Saxena's documentation for details of the patient history of presentation and data. I have discussed, reviewed and agree with the documented history with ROS, physical findings, labs/studies, assessment and plan of care. KEVIN GARCIA MD 09/04/2022 * Kathie Hill PA - 09/03/2022 11:50 AM EST Images from the original note were not included. Interventional Radiology Focused Pre-procedure H&P: PCP: Brittany Wynne MD Referring Provider: No ref. provider found Planned procedure: Left chest tube repositioning vs placement Procedure indication: Left pneumothorax, malpositioned left chest tube IR workflow: Interventional Radiology Service contacted by ED provider at 11:30 regarding the procedure request below. There are no answered order specific questions. History of Present Illness: Per chart review, Gena Morales is a 56 y.o. female with PMH of breast CA with CATHERINE lung nodule s/p CT-guided L lung nodule biopsy this morning with post-procedural L pneumothorax s/p L chest tube placement with persistent hypoxia, dyspnea and chest pain requiring ED ev aluation who presents to Interventional Radiology to undergo L chest tube repositioning vs new placement in the setting of CXR showing persistent pneumothorax despite L chest tube placement. Remainder of patient's medical and surgical history, allergies, medications, and social/family history obtained below as previously outlined in patient's medical record. IR History: As above Imagin09/03/22 Assessment: 56 y.o. female with L pneumothorax, malpositioned L chest tube presenting to Interventional Radiology for L chest tube repositioning vs placement. Plan Planned procedure: Left chest tube repositioning vs placement Labs to be performed day of procedure: No labs Sedation: Fentanyl only Prophylactic antibiotic : None Contrast: No contrast Additional medications for procedure: Lidocaine Position: Supine Consent: Scanned Medications to discontinue (and days held): None Cytopathology presence needed: No Case Urgency:: D- Intervention within 24 hrs Labs: Lab Results Component Value Date HGB 12.8 09/03/2022 HCT 39.5 09/03/2022 WBC 7.8 09/03/2022 PLATELET 292 09/03/2022 INR 1.0 09/03/2022 BUN 19 (H) 10/26/2021 CREATININE 0.74 10/26/2021 ALBUMIN 4.6 10/26/2021 BILITOT 0.2 10/26/2021 AST 23 10/26/2021 ALT 35 (H) 10/26/2021 ALKPHOS 117 (H) 10/26/2021 Allergies: Amoxicillin Medications: Current Facility-Administered Medications on File Prior to Encounter Medication Dose Route Frequency Provider Last Rate Last Admin ??? sodium chloride 0.9 % (flush) (BD PosiFlush Normal Saline 0.9) flush 5 mL 5 mL Intravenous BID Flako Beltrán, DO ??? sodium chloride 0.9 % (flush) (BD PosiFlush Normal Saline 0.9) flush 5-20 mL 5-20 mL Intravenous Q1 Min PRN Flako Beltrán, DO ??? lidocaine (Xylocaine) 1% (10 mg/mL) injection 3 mg 0.3 mL Subcutaneous Once PRN Flako Beltrán, DO ??? sodium chloride 0.9 % (flush) (BD PosiFlush Normal Saline 0.9) flush 10 mL 10 mL Intravenous Daily PRN Flako Beltrán, DO ??? fentaNYL (pf) (50 mcg/mL) multi-dose injection 25-50 mcg 25-50 mcg Intravenous Q3 Min PRN Flako Beltrán, DO 25 mcg at 09/03/22 1001 ??? flumazeniL (Romazicon) (0.1 mg/mL) injection 0.2 mg 0.2 mg Intravenous Q2 Min PRN Penelope Beltrán, DO ??? naloxone (NARCAN) injection 1 mg/mL 0.1 mg 0.1 mg Intravenous Q2 Min PRN Flako Beltrán, DO ??? [COMPLETED] lidocaine (Xylocaine) 1% (10 mg/mL) injection 10 mg 10 mg Subcutaneous Once Flako Beltrán, DO 10 mg at 09/03/22 0935 ??? midazolam (Versed) (1 mg/mL) injection 0.5-1 mg 0.5-1 mg Intravenous Q3 Min PRN Flako Beltrán, DO 0.5 mg at 09/03/22 1001 ??? sodium chloride 0.9% infusion 1,000 mL Intravenous Continuous Flako Beltrán, DO ??? ondansetron (pf) (Zofran) (2 mg/mL) injection 4 mg 4 mg Intravenous Q8H PRN Walter Yang MD 4 mg at 09/03/22 1017 Current Outpatient Medications on File Prior to Encounter Medication Sig Dispense Refill ??? levoFLOXacin (Levaquin) 750 mg Tablet TAKE 1 TABLET (750MG) BY MOUTH DAILY ??? givrobrhxuo-dbkhmseaonjr-bmqvmozceu (Trelegy Ellipta) 200-62.5-25 mcg Inhale into the [...] mg(2.5 mg base)/3 mL Solution for Nebulization Past Medical/Surgical history: Patient Active Problem List Diagnosis Code ??? Malignant neoplasm of right breast in female, estrogen receptor positive C50.911, Z17.0 Past Medical History: Diagnosis Date ??? Asthma ??? COPD (chronic obstructive pulmonary disease) ??? Malignant neoplasm of right breast in female, estrogen receptor positive 09/29/2021 09/07/[address] [facility], [place]: ER/AK+/HER2- right breast IDC, low grade Past Surgical History: Procedure Laterality Date ??? APPENDECTOMY ??? CHOLECYSTECTOMY ??? CT GUIDED BIOPSY LUNG 09/03/2022 CT Guided Biopsy Lung 09/03/2022 Flako Beltrán, DO [facility] RAD CT SCAN ??? CT GUIDED DRAIN CHEST TUBE/PLEURAL DRAIN 09/03/2022 CT Guided Drain Chest Tube/Pleural Drain 09/03/2022 Flako Beltrán, DO [facility] RAD CT SCAN ??? MAMMO US NEEDLE LOCALIZATION RIGHT Right 11/20/2021 Mammo US Needle Localization Right 11/20/2021 Sammie Chong MD [facility] RAD MAMMOGRAPHY ??? PRO BX/REMV, LYMPH NODE, DEEP AXILL Right 11/20/2021 BIOPSY OR EXCISION OF LYMPH NODE(S), OPEN, DEEP AXILLARY NODE(S) (WRVU 6.43) performed by Dylan Kendrick MD at [facility] ??? PRO INTRAOP SENTINEL LYMPH ID W/DYE INJECTION Right 11/20/2021 INTRAOPERATIVE ID (MAPPING) SENTINEL LYMPH NODE,INCLUDES INJECTION (WRVU 2.5) performed by Dylan Kendrick MD at [facility] ??? PRO MASTECTOMY PARTIAL Right 11/20/2021 MASTECTOMY PARTIAL (WRVU 10.13) performed by Dylan Kendrick MD at [facility] ??? TUBAL LIGATION Social History and Habits: Social History Tobacco Use ??? Smoking status: Former Packs/day: 0.50 Types: Cigarettes Quit date: 12/17/2021 Years since quittin.7 ??? Smokeless tobacco: Never Vaping Use ??? Vaping Use: Former Significant Family History: Family History Problem Relation Age of Onset ??? Breast Cancer Neg Hx Pertinent ROS: as per HPI Physical Exam: Pending (to be performed in IR the day of procedure) ASA: Pending (to be assessed in IR the day of procedure) Mallampati class: Pending (to be assessed in IR the day of procedure) 09/03/2022 Kathie Hill PA-C documented in this encounter ED Notes * Wang Disla MD - 09/04/2022 5:43 AM EST ED Resident Note HPI: Gena Morales is a 56 y.o. female who presents to the Emergency Department for stabilization following pneumothorax secondary to IR pulmonary nodule biopsy. Earlier today patient was seen for leftsided lung biopsy IR procedure, following the procedure she began having O2 desaturation and SOB, was found to have pneumothorax. A pigtail catheter was placed and she was taken to the ED for furtherstabilization pending hospital medicine admission. Prior to her biopsy the patient has been feelingshort of breath and has a significant history of emphysema (COPD) and Malignant neoplasm of breast in 2020. Reports no fever, coughing, chest pain, abdominal pain, nausea, vomiting, dysuria. Pt was seen under the supervision of an attending physician. Review of Systems Pertinent positives and negatives are included in the HPI, otherwise at least ten systems were reviewed and negative. Past Medical and Surgical Histories, Social History, Medications, Allergies were reviewed in the chart. Reports no history of cardiac Vitals: ED Triage Vitals BP: (!) 137/92 [09/03/22 1050] Heart Rate: 100 [11/14/22 1050] Resp: 22 [09/03/221049] Temp: 36.3 ??C (97.3 ??F) [09/03/22 1300] Temp src: Temporal [09/03/22 1300] SpO2: 97 % [09/03/221049] O2 Device: NRB [09/03/221049] O2 Flow Rate (L/min): 15 L/min [09/03/221049] Physical Exam Constitutional: Comments: Uncomfortable secondary to pain at site of chest tube, however not toxic/ill appearing and in no significant distress HENT: Head: Normocephalic and atraumatic. Right Ear: External ear normal. Left Ear: External ear normal. Nose: Nose normal. Eyes: General: Right eye: No discharge. Left eye: No discharge. Cardiovascular: Rate and Rhythm: Normal rate and regular rhythm. Pulses: Normal pulses. Heart sounds: Normal heart sounds. Pulmonary: Comments: With wheezing bilaterally, no crackles, tenderness around site of chest tube insertion. No significant fluid drainage from chest tube Abdominal: General: Abdomen is flat. There is no distension. Palpations: Abdomen is soft. Tenderness: There is no abdominal tenderness. Musculoskeletal: Cervical back: No rigidity. Right lower leg: No edema. Left lower leg: No edema. Skin: General: Skin is warm and dry. Capillary Refill: Capillary refill takes less than 2 seconds. Neurological: General: No focal deficit present. Mental Status: She is alert and oriented to person, place, and time. Psychiatric: Mood and Affect: Mood normal. ED Course: I have reviewed labs and imaging, images and available reports, and they are significant for: ABG with pH 7.26, however CO2 and O2 within acceptable limits CBC and CMP with no abnormalities. XR Chest One View Final Result Decreased size of now small left apical pneumothorax. Thank you for letting us participate in the care of this patient. If you are a health care provider and have any questions regarding this report, please contact the number below. For patients who have questions please contact the health care technician that requested your imaging first. Chest Tube Placement Left (Results Pending) XR Chest One View (Results Pending) Assessment and Plan: 56 y.o. female with history of emphysema with left sided pneumothorax s/p lung biopsy, pigtail placed by IR in left upper back. Based on history of COPD/emphysema and a week of fatigue we ordered ABG, CBC, and CMP, and found non-anion gap acidemia, however with normal CO2, O2, lactate and bicarb. She does not appear to have either a respiratory or metabolic acidosis based on these labs. She does have wheezing on exam, which may indicate a COPD exacerbation. We gave duonebs x3 and solumedrol, with minimal improvement in wheezing but with some improvement of patient comfort/SOB. The cause of her acidosis is unclear at this time, will need further evaluation when admitted to hospital medicine and resolution of her pneumothorax. No concern for pneumonia given normal labs, no cough, and afebrile. Regarding her pneumothorax, she had minimal output from her chest tube which is reassuring that she does not have an intrathoracic bleed. CXR in the ED showed moderate left sided pneumothorax, IR w as contacted and adjusted pigtail catheter, repeat CXR showed decreased size of pneumothorax. Patient admitted to hospital medicine. The visit findings, diagnosis, and care plan were discussed with the patient. Wang Disla MD Resident 09/05/22 1622 Associated attestation - Rosa Bassett MD - 09/05/2022 4:41 PM EST ED ATTENDING ATTESTATION NOTE The patient was seen in conjunction with the resident physician. I have independently performed thekey portions of the history and physical exam. I have reviewed the nursing notes, vital signs, and all diagnostic studies personally including labs, imaging studies and EKGs. I have discussed the details of the case with the resident and agree with the assessment and plan as described in the resident note unless noted otherwise. CRITICAL CARE DOCUMENTATION: Is there a high potential of sudden, clinically significant, or life threatening deterioration? Yes Are there life and/or organ supporting interventions that require frequent personal assessment and manipulation or support to treat/prevent vital organ failure/deterioration? yes I personally performed 40 minutes of aggregate critical care time exclusive of procedures and teaching during this emergency department visit. This includes time spent during direct patient evaluation and reassessment, interpreting diagnostic tests, directing life and/or organ supporting interventions, and documentation. * Paloma Eason RN - 09/03/2022 1:56 PM EST Returned from IR. Report received. AAOx4, resp even-unlabored, skin p/w/d. Left sided CT to - 20 cmto suction. Plan to admit when bed available. HM at evaluating pt. Pt updated w/POC and agrees. * Paloma Eason RN - 09/03/2022 1:45 PM EST Returned from IR procedure s/p CT placement. Left sided CT to - 20 cm wall suction. Dressing C/D/I.Resp even-unlabored, skin p/w/d. Lungs w/IW & EW on right side. Neb in progress. Plan to admit when bed available. Pt updated w/POC and agrees. * Paloma Eason RN - 09/03/2022 12:22 PM EST Resp status improving - nebs in progress. Plan to return to IR for catheter repositioning. Pt and family updated w/POC and agree. * Akilah Workman RN - 09/03/2022 12:02 PM EST Admitting team paged about critical lab result, RN made awarre. * Denise Del Toro MD - 09/03/2022 10:34 AM EST EM attending brief transfer acceptance note: Gena Morales is a 56 y.o. with hx of metastatic breast CA who I accepted in transfer from Interventional Radiology, Dr. Beltrán. The patient will be evaluated in the Emergency Department for Respiratory Distress. Pt underwent a lung biopsy in IR and developed a large PTX during the procedure. A pleural catheterwas placed, but pt continued to develop worsening respiratory distress. At the time of my discussion with Dr. Beltrán, the patient was requiring a non-rebreather and showed evidence of acute respiratory distress. A code white was called and patient will be brought to the ED for further management. The EM team will contact the HM/ICU team as needed. Transfer and stabilization prior to transfer were discussed. Denise Del Toro MD 09/03/22 1044 documented in this encounter Miscellaneous Notes * Plan of Care - Myrna Goldman RN - 09/08/2022 4:34 AM EST OUTCOME EVALUATION NOTE: OUTCOME SUMMARY: Patient transferred to unit at 2200, VSS on 2L NC. Patient is able to make needs known. No acute events. Patient independent in room. Will continue to monitor and notify MD of any changes. PLAN MOVING FORWARD: Safe discharge plan INDIVIDUALIZED FALL PREVENTION INTERVENTIONS: Patient-specific fall risk factors per assessment: [current deficits]: unfamiliar environment, generalized weakness, tubing Assistance [level of assistance required for transfers and ambulation]: IND Supervision [direct monitoring required during toileting and ADLs]: IND Surveillance [continuous indirect monitoring]: masimo Patient-specific fall prevention interventions for sensory deficits provided, if applicable: [X] N/A CPG GOAL OUTCOME EVALUATION: * Consult Note - Sammie Minaya RN - 09/05/2022 8:55 PM EST Life Safety Program Consult Note Called to see Gena Morales who is a 56 y.o. female with PMH of metatatic right breast cancer, asthma, and COPD presenting with acute respiratory distress in the setting of a recent pulmonary percutaneous biopsy with a??pneumothorax. Admission Date/Time 09/03/2022 10:44 AM Hospital Day 2 days Problem List: Active Hospital Problems Diagnosis ??? Pneumothorax after biopsy Resolved Hospital Problems No resolved problems to display. Active Non-Hospital Problems Diagnosis ??? Malignant neoplasm of right breast in female, estrogen receptor positive Allergies Allergen Reactions ??? Amoxicillin Assessment: Assumed care from previous LS RN, Theresa after she responded to a HERT call for patient with SOB, hyopxia requiring NRB and hypertension. Patient was given labetalol and neb treatments and responded well. On my arrival, CCS fellow was at bedside evaluating. Patient with improved WOB and sat's >94% on 6L NC. She was initially pended to ISCU but within 15-20 minutes, was noted to have significant swelling to her neck and right eye - no increased SOB or derangement of VS (see flowsheet). C/o nausea and given compazine, no vomiting noted. Team called back to bedside and noted the increased SubQ air in the chest wall, neck, L arm and face. Pigtail noted to be kinked and had a notable air leakonce the kink was corrected - splinted to prevent further kinking. Also at this time, patient expressed wishes to change her code status from DNI to DNR with limited trial of intubation allowed. Given the rapid increase in her subQ air, CCS accepted her to ICU and ordered CT of Chest ordered. CT completed and patient transferred to CC 22 with no acute events en route. However, of note, patient's facial swelling has slowly continued to increase despite the pigtail being patent without further air leak. Report given to RN at bedside. Plan: CT Chest, CCS consult Transfer to Critical Care: ICUN Please page with any additional questions at [phone]. Thanks SAMMIE MINAYA RN 8:55 PM September 05, 2022 * Plan of Care - Steven Mae RN - 09/05/2022 6:34 PM EST Patient A&Ox4 breathing on 4L NC. Dyspnea, wheezing present. Lung sounds coarse. Crepitus palpated posterior and anterior neck and shoulders L>R side. Crepitus palpated across chest as well. Nebulizer treatment given prior to going to IR. 1830: All patient belongings are packed and staged in room 134B. * Care Management - Boris Coles RN - 09/05/2022 10:46 AM EST OFFICE OF CARE MANAGEMENT PROGRESS NOTE LOS: Hospital Day 2 days Chart reviewed, care reviewed with primary team and at interdisciplinary rounds. Patient continues to meet inpatient level of care related to: Pneumothorax after biopsy Clinical Update: Assessment: 56 y.o. female with PMHx sig for COPD, asthma, right breast cancer, admitted with pneumothorax following CT-guided left upper lobe nodule biopsy requiring chest tube placement. Hospital course has been complicated by 2 days of persistent left apical pneumothorax and air leak with chestx-ray findings of increased subcutaneous air in the neck base and left lateral chest wall. Patient remains on on 4 L by nasal cannula with intermittent shortness of breath. Benefits and risks of blood patch were discussed with the patient who would like to proceed. From note by MW. Lyndon MD on 09/05 @ 0709. Decision Maker: Self Functional status prior to admission: Independent Home Environment: Others in the home: child(malina), adult, grandchild(malina). Current Living Arrangements: home/apartment/condo. Accessibility Concerns: Pt resides at home with her son, his s/ and their child. Current Functional Ability: Assistive Person *Standby assist DME used at home: none DME Needed at Discharge: None identified Patient is insured through: Primary Insurance: [facility] Payor: [facility] / Plan: [facility] / Product Type: *No Product type* / Secondary Insurance: MEDICAID [place] Last Physical Therapy Recommendation: with Last Occupational Therapy Recommendation: with Plan for discharge is: Home w/o Services Outpatient Agency/Support Group Needs: None Agency Referrals: TBD Transportation: family or friend will provide Barriers to discharge: Discharge planning Plan going forward: Care Management will continue to follow and assist with discharge planning and coordination of care as indicated. Anticipated Date of Discharge: 09/07/2022 Boris Coles RN * Plan of Care - Tracy Schultz RN - 09/04/2022 6:48 PM EST OUTCOME EVALUATION NOTE: OUTCOME SUMMARY: Patient A&OX4, denies chest pain but endorses SOB with exertion. On 4L of O2. Occasionally tachycardic throughout shift- max HR 105. Patient ambulated to bathroom with O2 and chest tube, O2sat dropped to 81 and returned to baseline after about a minute of rest, MD notified. Chest tube maintained at -20 suction, a total of 15mLs of output throughout shift. Chest X-Ray completed. Frequent productive cough with blood tinged sputum. PRN tylenol administered x2 with good relief. Prn albuterol nebulizer administered x1 with good effect. All scheduled meds administered, see DEC. PLAN MOVING FORWARD: Monitor vital signs, chest tube management, pain management INDIVIDUALIZED FALL PREVENTION INTERVENTIONS: Patient-specific fall risk factors per assessment: [current deficits]: Oxygen tubing, SOB/dyspnea with exertion, chest drain tubing Assistance [level of assistance required for transfers and ambulation]: Standby Supervision [direct monitoring required during toileting and ADLs]: Eyes on Surveillance [continuous indirect monitoring]: fuad Lynch rounding, * Consult Note - Kylah Schaffer RPH - 09/04/2022 1:19 PM EST [facility] Home Medication List Update for Medication Reconciliation 09/04/22 1:20 PM Gena Morales 1965 Allergies Allergen Reactions ??? Amoxicillin ??? Person Interviewed: patient ??? Quality of Interview/accuracy of medication list: good ??? Sources used to compile medication list: [x] Epic medication list [x] SureScripts ??? Changes made to home medication list: o Additions: - NONE o Deletions: - Spiriva, emollient cream o Changes: - none ??? Additional Notes: none ??? Recommended changes: none The home medication list is now updated to the best of my knowledge and is ready to be reconciled by the provider. Please contact the [facility] Medication Reconciliation Pharmacist at for any questions. Kylah Schaffer RPH * Plan of Care - Inga Freitas RN - 09/04/2022 5:02 AM EST OUTCOME EVALUATION NOTE: OUTCOME SUMMARY: Pt A&Ox4. HR 100s, 120s with ambulation. 4L NC, lung sound coarse left, wheezing/dim right. SOBwith activity. Left sided chest tube site intact: -20 cmH20 continuous, +air leak, +crepitus aroundCT site unchanged overnight. Scant drainage in collection chamber. Mild pain around chest tube site. Coughed up small amount of old blood tinged sputum. SBA. CXR ordered this AM. PLAN MOVING FORWARD: Imaging to assess lung re-expansion Monitor chest tube Manage pain INDIVIDUALIZED FALL PREVENTION INTERVENTIONS: Patient-specific fall risk factors per assessment: [current deficits]: Tethers. Impaired mobility. Hospital environment. Assistance [level of assistance required for transfers and ambulation]: SBA Supervision [direct monitoring required during toileting and ADLs]: Stand-by Surveillance [continuous indirect monitoring]: Pulse ox. Call lainez within reach. Purposeful hourly rounding. * Plan of Care - Tracy Schultz RN - 09/03/2022 5:37 PM EST OUTCOME EVALUATION NOTE: OUTCOME SUMMARY: Patient A&OX4. Admitted to unit at 1600. Elevated HR into the 130s, V/S otherwise stable on 3L.Patient reports chest pain, MD notified. EKG completed in ER earlier in the day. Chest tube suctionset at -20. Safety maintained. PLAN MOVING FORWARD: Monitor V/S, chest tube management, maintain safety INDIVIDUALIZED FALL PREVENTION INTERVENTIONS: Patient-specific fall risk factors per assessment: [current deficits]: Oxygen tubing, chest tube, generalized weakness, hospital environment. Assistance [level of assistance required for transfers and ambulation]: Standby assist Supervision [direct monitoring required during toileting and ADLs]: Eyes on Surveillance [continuous indirect monitoring]: Masimo, call lainez within reach, purposeful rounding,room near nurses station * Initial Assessments - Tanna Trujillo MSW - 09/03/2022 1:28 PM EST Office of Care Management Initial Assessment DENA Pisano reviewed record and discussed patient with Care Team. Source of Information: Team, bedside nurse, medical record, and Chart Review DENA Trujillo Introduced self/reviewed role; services accepted. Reason for Hospitalization: Pneumothorax Covid Vaccination Status: 1st dose only (J&J) Last COVID test: Past medical History: Past Medical History: Diagnosis Date ??? Asthma ??? COPD (chronic obstructive pulmonary disease) ??? Malignant neoplasm of right breast in female, estrogen receptor positive 09/29/2021 09/07/21 [facility], [place]: ER/AK+/HER2- right breast IDC, low grade Hospitalizations Within the Past 30 Days: no previous admission in last 30 days Current Decision-Making Capacity: Self If AD's have not been completed the following surrogate would be MUSTAPHA ARMIJO surrogate decision maker per [place] surrogate decision making law. (Only good for 180 days) Any patient receiving care in [place] must abide by [place] law. The hierarchy for surrogate decision making is: (a) Patient???s spouse, or civil union partner or common law spouse unless there is a divorce proceeding, separation agreement, or restraining order limiting that person???s relationship with the patient. (b) Any adult son or daughter of the patient. (c) Either parent of the patient. (d) Any adult brother or sister of the patient. (e) Any adult grandchild of the patient. (f) Any grandparent of the patient. (g) Any adult aunt, uncle, niece, or nephew of the patient. (h) A close friend of the patient. (i) The agent with financial power of sap fico architect or a conservator appointed in accordance with RSA 464-A. (j) The guardian of the patient???s estate. Advance Care Planning: Attempt Cardiopulmonary Resuscitation - Inpatient <no information> -Advanced Directive: Yes, not on file Who is your DPOA-HC?: Child Current Coping/Education/Information Needs: GET ACP docs on file at [facility] Current Functional Ability: Independent Functional Status Prior to Admission: Independent Prior ADLs & IADLs: Independent with all ADLs & IADLs Home Environment: Others in the home: child(malina), adult, grandchild(malina). Current Living Arrangements: home/apartment/condo. Accessibility Concerns:Pt resides at home with her son, his s/ and their child. Resource / Environmental Concerns: Resource/Environmental Concerns: none Current DME: none Home Address confirmed as: [address] [place] [address] Social & Family Supports: All names listed below confirmed with patient as current and correct Extended Emergency Contact Information Primary Emergency Contact: GEOFFDOUG Mobile Relation: Child Secondary Emergency Contact: CELINAJILL Mobile Relation: Friend Current Care Provided by: self Provides Primary Care For: no one Caregiver if needed: child(malina), adult Quality of Family relationships: supportive, involved Community Resources being provided currently: other (see comments), infusion therapy, outpatient (radiation) Behavioral Health History: Substance Use/Abuse confirmed: Social History Tobacco Use Smoking Status Former ??? Packs/day: 0.50 ??? Types: Cigarettes ??? Quit date: 12/17/2021 ??? Years since quittin.7 Smokeless Tobacco Never 0 No problems reported 1-2 Low level 3-5 Moderate level 6-8 Substantial level 9- 10 Severe level 0 to 7 points: Low risk 8 to 15 points: Medium risk 16 to 19 points: High risk 20 to 40 points: Addiction likely Other Pertinent/Service Specific Information: Health/Prescription Coverage: Primary Insurance: [facility] Payor: [facility] / Plan: [facility] / Product Type: *No Product type* / Secondary Insurance: MEDICAID [place] ; Prescription Coverage: Yes Preferred Pharmacy: [id number] - [place], [place] - [address] AT [facility] [address] [address] [place] Status: Patient is a : No Primary Care Provider: Brittany Wynne MD [phone] Patient/Caregiver Goals of Treatment: Return home with family when medically ready Potential Needs for Transition of Care: outpatient care Agency Referrals: Not Applicable Transportation: no concerns Transportation Anticipated: car, drives self, family or friend will provide Concerns to be Addressed: no discharge needs identified Assessment: Patient is admitted to Medicine-Green service for pneumothorax. Plan: Back to IR for catheter. Discharge dispo pending. A member of the Care Management team will continue to monitor progress, follow for continuity of care and assist with transition of care planning. Tanna Trujillo FIRESTOPPER INSTALLER Emergency Department Computer Programmer Analyst [phone] Pager: [phone] * ED Triage - Zenobia Mays, RN - 09/03/2022 10:45 AM EST Pt arrives from outpatient IR with reports of SOB and O2 desaturation. Pt was in IR for left-sided lung biopsy today, developed SOB, labored breathing, O2 desaturations. Pt was found to have a left-sided pneumothorax -> chest tube was placed ~1030 and pt placed on NRB mask. Upon arrival to ED pton NRB mask 15L with O2 sat 97%, CT site C/D/I. Pt a/o x4. Meds administered @1250 in IR: 4mg zofran 2mg versed 100mcg fentanyl Plan was for Medicine team to admit; ED first for stabilization. documented in this encounter Plan of Treatment Upcoming Encounters Date Type Department Care Team (Late st Contact Info) Description 01/11/2025 1:00 PM EDT Office Visit Radiation Oncology at [address] [phone] Misty Llanos MD [facility] [place] [address] 08/23/2025 1:10 PM EST Appointment Mammography/[place] [address] Jody Tam APRN [facility] [place] [address] 08/23/2025 2:10 PM EST Office [place] [phone] Jody Tam APRN [facility] [place] [address] documented as of this encounter Procedures Procedure Name Priority Date/Time Associated Diagnosis Comments HEMOGRAM STAT 09/08/2022 12:40 AM EST DIFFERENTIAL, AUTOMATED STAT 09/08/2022 12:40 AM EST HC CBC,PLT & AUTO DIFF STAT 12:40 AM EST HC PHOSPHORUS, SERUM STAT 09/08/2022 12:40 AM EST HC MAGNESIUM, SERUM STAT 09/08/2022 1 2:40 AM EST BASIC METABOLIC PANEL Routine 09/08/2022 12:40 AM EST XR CHEST ONE VIEW Routine 09/07/2022 1:3 5 PM EST XR CHEST ONE VIEW Routine 09/07/2022 10: 42 AM EST HEMOGRAM Routine 09/07/2022 2:14 AM EST DIFFERENTIAL, AUTOMATED Routine 09/07/2022 2:14 AM EST HC CBC,PLT & AUTO DIFF Routine 2:14 AM EST HC PHOSPHORUS, SERUM Routine 09/07/2022 2:14 AM EST HC MAGNESIUM, SERUM Routine 09/07/2022 2 :14 AM EST BASIC METABOLIC PANEL Routine 09/07/2022 2:14 AM EST XR CHEST ONE VIEW Routine 09/06/2022 2:2 1 PM EST XR CHEST ONE VIEW STAT 09/06/2022 11: 14 AM EST HC HEMOGRAM Routine 09/06/2022 2:00 AM EST DIFFERENTIAL, AUTOMATED STAT 09/06/2022 2:00 AM EST CBC (WITH DIFF) STAT 09/06/2022 2:00 AM EST HC PHOSPHORUS, SERUM STAT 09/06/2022 2:00 AM EST HC MAGNESIUM, SERUM STAT 09/06/2022 2 :00 AM EST BASIC METABOLIC PANEL Routine 09/06/2022 2:[address] CHEST WO CONTRAST (GENERIC) STAT 09/05/2022 8:32 PM EST XR CHEST ONE VIEW STAT 09/05/2022 5:5 3 PM EST EKG 12-LEAD STAT 09/05/2022 5:46 PM EST Pneumothorax, unspecified type Tachycardia XR CHEST ONE VIEW Routine 09/05/2022 6:3 8 AM EST HC VENIPUNCTURE Routine 09/05/2022 5:48 AM EST BASIC METABOLIC PANEL Routine 09/05/2022 5:48 AM EST XR CHEST ONE VIEW Routine 09/04/2022 12: 08 PM EST XR CHEST ONE VIEW Routine 09/04/2022 5:1 6 AM EST HC VENIPUNCTURE Routine 09/04/2022 4:35 AM EST BASIC METABOLIC PANEL Routine 09/04/2022 4:35 AM EST EKG 12-LEAD STAT 09/03/2022 2:28 PM EST XR CHEST ONE VIEW Timed 09/03/2022 2:1 5 PM EST IR CHEST TUBE PLACEMENT LEFT STAT 09/03/2022 12:25 PM EST EKG 12-LEAD STAT 09/03/2022 11:54 AM EST BLOOD GAS ARTERIAL ([facility]) Routine 09/03/2022 11:40 AM EST HEMOGRAM STAT 09/03/2022 11:00 AM EST DIFFERENTIAL, AUTOMATED STAT 09/03/2022 11:00 AM EST GOLD TUBE HOLD STAT 09/03/2022 11:00 AM EST BLUE TUBE HOLD STAT 09/03/2022 11:00 AM EST HC CBC,PLT & AUTO DIFF STAT 11:00 AM EST COMPREHENSIVE METABOLIC PANEL STAT 09/03/2022 11:00 AM EST documented in this encounter Results * Differential, Automated (09/08/2022 12:40 AM EST) Neutrophil % 52.7 % [facility] Neutrophil Absolute 4.21 1.70 - 6.10 x10(3)/[facility] Lymph % 36.3 % [facility] Lymphocytes Abs 2.9 0.9 - 3.2 x10(3)/[facility] Monocyte % 7.3 % [facility] Monocyte Abs 0.6 0.3 - 0.9 x10(3)/[facility] Eos % 2.9 % [facility] Eosinophils Abs 0.2 0.0 - 0.4 x10(3)/[facility] Basophil % 0.3 % [facility] Baso Absolute 0.0 0.0 - 0.1 x10(3)/[facility] Immature Gran % 0.50 % [facility] Comment: Immature granulocytes(IG's)percentage and absolute count will include metamyelocytes, myelocytes, and promyelocytes. Blood smears from CBCs yielding IG's will be scanned manually for concordance. If this scan disagrees with the automated IG or if promyelocytes are noted, a manual differential will be performed. Immature Gran Absolute 0.04 0.00 - 0.04 x10(3)/[facility] Blood 09/08/2022 12:4 0 AM EST 09/08/2022 12:58 AM EST Narrative Resulting Agency Comment Spec In Lab Reza Novak MD HEMATOLOGY ORDERABLE S [facility] [place] [address] * (ABNORMAL) Hemogram (09/08/2022 12:40 AM EST) White Blood Cell 8.0 4.0 - 9.5 x10(3)/[facility] Red Blood Cell 3.87(L) 4.00 - 5.21 x10(6)/mc L [facility] Hemoglobin 12.3 11.7 - 15.5 g/dL [facility] Hematocrit 36.4 35.7 - 45.8 % [facility] Mean Cell Volume 94.1 82.6 - 94.4 fL [facility] Mean Cell Hemoglobin 31.8 27.1 - 32.0 pg [facility] Mean Cell Hemoglobin Concentration 33.8 31.7 - 35.0 g/dL [facility] Platelet 262 145 - 357 x10(3)/mc L [facility] RDW Standard Deviation 44.9 37.0 - 46.0 fL [facility] RDW coefficient of variation 13.0 11.5 - 14.1 % [facility] Mean Platelet Volume 9.3 7.6 - 12.9 fL [facility] NRBC% auto 0.0 % [facility] NRBC Absolute 0.000 0.000 - 0.000 x10(3)/mc L [facility] Blood 09/08/2022 12:4 0 AM EST 09/08/2022 12:58 AM EST Narrative Resulting Agency Comment Spec In Lab Reza Novak MD HEMATOLOGY ORDERABLE S [facility] [place] [address] * Phosphorus (09/08/2022 12:40 AM EST) Phosphorus 3.4 2.5 - 4.5 mg/dL [facility] Blood 09/08/2022 12:4 0 AM EST 09/08/2022 12:58 AM EST Narrative Resulting Agency Comment Spec In Lab Kevin Garcia MD CHEMISTRY ORDERABL ES Performing Organization Address [facility]/ZIP Co de Phone Number [facility] [place] [address] * Magnesium (09/08/2022 12:40 AM EST) Magnesium 0.79 0.69 - 1.07 mmol/L [facility] Blood 09/08/2022 12:4 0 AM EST 09/08/2022 12:58 AM EST Narrative Resulting Agency Comment Spec In Lab Kevin Garcia MD CHEMISTRY ORDERABL ES Performing Organization Address [facility] Co de Phone Number [facility] [place] [address] * (ABNORMAL) Basic Metabolic Panel (non-fasting) (09/08/2022 12:40 AM EST) Glucose 93 65 - 199 mg/dL [facility] Comment:Diabetes: >=200 mg/d L plus symptoms Blood Urea Nitrogen 16 8 - 18 mg/dL [facility] Creatinine 0.65(L) 0.70 - 1.20 mg/dL [facility] Sodium 138 135 - 145 mmol/L [facility] Potassium 4.3 3.5 - 5.0 mmol/L [facility] Comment: Please note: ??Patients with WBC >100,000 may have falsely elevated Potassium levels. ??For accurate Potassium quantification in these patients send serum separator tube (gold top) for subsequent determinations. ??Contact the Clinical Chemistry Laboratory if there are any questions. Chloride 104 98 - 107 mmol/L [facility] Carbon Dioxide 23 22 - 31 mmol/L [facility] Anion Gap 11 5 - 15 mmol/L [facility] Calcium 8.8 8.5 - 10.5 mg/dL [facility] Est Glomerular Filtration Rate 102 >=60 mL/min/1. 73 m?? [facility] Comment: This patient's estimated GFR was [...] Resulting Agency Comment Spec In Lab Kevin Garcia MD CHEMISTRY ORDERABL ES [facility] [place] [address] * XR Chest One View (09/07/2022 1:35 PM EST) Anatomical Region Laterality Modality Chest N/A Digital Radiogra phy Impressions 09/07/2022 1:51 PM EST No appreciable pneumothorax. Thank you for letting us participate in the care of this patient. ??If you are a health care provider and have any questions regarding this report, please contact the number below. ??For patients who have questions please contact the health care technician that requested your imaging first. ? Narrative 09/07/2022 1:51 PM EST EXAMINATION: XR CHEST ONE VIEW CLINICAL HISTORY: 2 hours s/p chest tube removal, monitor for pneumothorax TECHNIQUE: 1 view of the chest COMPARISON: Chest radiograph 09/07/2022 FINDINGS: No focal consolidation. No appreciable pneumothorax. No pleural effusion. Extensive subcutaneous air throughout the chest wall and neck, similar to previous exam. Pneumomediastinum is again noted, not substantially changed from prior. No interval osseous abnormality. Procedure Note Collette Boo MD - 09/07/2022 EXAMINATION: XR CHEST ONE VIEW CLINICAL HISTORY: 2 hours s/p chest tube removal, monitor forpneumothorax TECHNIQUE: 1 view of the chest COMPARISON: Chest radiograph 09/07/2022 FINDINGS: No focal consolidation. No appreciable pneumothorax. No pleuraleffusion. Extensive subcutaneous air throughout the chest wall and neck, similarto previous exam. Pneumomediastinum is again noted, not substantially changedfrom prior. No interval osseous abnormality. IMPRESSION No appreciable pneumothorax. Thank you for letting us participate in the care of this patient. If youare a health care provider and have any questions regarding this report,please contact the number below. For patients who have questions please contactthe health care technician that requested your imaging first. Kevin Garcia MD IMG DX ORDERABLES * XR Chest One View (09/07/2022 10:42 AM EST) Anatomical Region Laterality Modality Chest N/A Digital Radiogra phy Impressions 09/07/2022 11:23 AM EST Persistent extensive bilateral subcutaneous emphysema. Slightly increased pneumomediastinum. No pneumothorax is seen. Thank you for letting us participate in the care of this patient. ??If you are a health care provider and have any questions regarding this report, please contact the number below. ??For patients who have questions please contact the health care technician that requested your imaging first. ? Electronically signed by: Carley Liang [facility] ([phone]), at 09/07/2022 11:23 AM Narrative 09/07/2022 11:23 AM EST EXAMINATION: XR CHEST ONE VIEW CLINICAL HISTORY: 56F, PTX w subcutaneous emphysema, pigtail in place, please reassess 2h post water seal TECHNIQUE: 1 view of the chest COMPARISON: 09/06/2022. FINDINGS: Left-sided pigtail chest tube remains in place. No pneumothorax. Extensive bilateral chest wall and neck subcutaneous emphysema, more on the left than on the right, is similar to the prior exam. Of note is a slightly increased amount of pneumomediastinum. Only trace blunting of the left costophrenic angle. Cardiac mediastinal silhouette is normal. No interval osseous change. Procedure Note Carley Lezama MD - 09/07/2022 EXAMINATION: XR CHEST ONE VIEW CLINICAL HISTORY: 56F, PTX w subcutaneous emphysema, pigtail in place,please reassess 2h post water seal TECHNIQUE: 1 view of the chest COMPARISON: 09/06/2022. FINDINGS: Left-sided pigtail chest tube remains in place. No pneumothorax.Extensive bilateral chest wall and neck subcutaneous emphysema, more on the leftthan on the right, is similar to the prior exam. Of note is a slightly increasedamount of pneumomediastinum. Only trace blunting of the left costophrenic angle. Cardiac mediastinal silhouette is normal. No interval osseous change. IMPRESSION Persistent extensive bilateral subcutaneous emphysema. Slightlyincreased pneumomediastinum. No pneumothorax is seen. Thank you for letting us participate in the care of this patient. If youare a health care provider and have any questions regarding this report,please contact the number below. For patients who have questions please contactthe health care technician that requested your imaging first. Kevin Garcia MD IMG DX ORDERABLES * Differential, Automated (09/07/2022 2:14 AM EST) Neutrophil % 56.4 % [facility] Neutrophil Absolute 4.79 1.70 - 6.10 x10(3)/[facility] Lymph % 31.4 % [facility] Lymphocytes Abs 2.7 0.9 - 3.2 x10(3)/[facility] Monocyte % 8.7 % [facility] Monocyte Abs 0.7 0.3 - 0.9 x10(3)/[facility] Eos % 2.9 % [facility] Eosinophils Abs 0.2 0.0 - 0.4 x10(3)/[facility] Basophil % 0.2 % [facility] Baso Absolute 0.0 0.0 - 0.1 x10(3)/[facility] Immature Gran % 0.40 % [facility] Comment: Immature granulocytes(IG's)percentage and absolute count will include metamyelocytes, myelocytes, and promyelocytes. Blood smears from CBCs yielding IG's will be scanned manually for concordance. If this scan disagrees with the automated IG or if promyelocytes are noted, a manual differential will be performed. Immature Gran Absolute 0.03 0.00 - 0.04 x10(3)/mcL [facility] Blood 09/07/2022 2:14 AM EST 09/07/2022 2:19 AM EST Narrative Resulting Agency Comment Spec In Lab Kevin Garcia MD HEMATOLOGY ORDERAB LES [facility] [place] [address] * (ABNORMAL) Hemogram (09/07/2022 2:14 AM EST) White Blood Cell 8.5 4.0 - 9.5 x10(3)/mc L [facility] Red Blood Cell 3.73(L) 4.00 - 5.21 x10(6)/mc L [facility] Hemoglobin 11.9 11.7 - 15.5 g/dL [facility] Hematocrit 35.2(L) 35.7 - 45.8 % [facility] Mean Cell Volume 94.4 82.6 - 94.4 fL [facility] Mean Cell Hemoglobin 31.9 27.1 - 32.0 pg [facility] Mean Cell Hemoglobin Concentration 33.8 31.7 - 35.0 g/dL [facility] Platelet 240 145 - 357 x10(3)/mc L [facility] RDW Standard Deviation 45.0 37.0 - 46.0 [facility] RDW coefficient of variation 12.8 11.5 - 14.1 % [facility] Mean Platelet Volume 9.0 7.6 - 12.9 fL [facility] NRBC% auto 0.0 % [facility] NRBC Absolute 0.000 0.000 - 0.000 x10(3)/mc L [facility] Blood 09/07/2022 2:14 AM EST 09/07/2022 2:19 AM EST Narrative Resulting Agency Comment Spec In Lab Kevin Garcia MD HEMATOLOGY ORDERAB LES Performing Organization Address [facility] de Phone Number [facility] [place] [address] * Phosphorus (09/07/2022 2:14 AM EST) Phosphorus 3.7 2.5 - 4.5 mg/dL [facility] Blood 09/07/2022 2:14 AM EST 09/07/2022 2:19 AM EST Narrative Resulting Agency Comment Spec In Lab Kevin Garcia MD CHEMISTRY ORDERABL ES Performing Organization Address [facility] de Phone Number [facility] [place] [address] * Magnesium (09/07/2022 2:14 AM EST) Magnesium 0.83 0.69 - 1.07 mmol/L [facility] Blood 09/07/2022 2:14 AM EST 09/07/2022 2:19 AM EST Narrative Resulting Agency Comment Spec In Lab Kevin Garcia MD CHEMISTRY ORDERABL ES Performing Organization Address [facility] Phone Number [facility] [place] [address] * (ABNORMAL) Basic Metabolic Panel (non-fasting) (09/07/2022 2:14 AM EST) Glucose 110 65 - 199 mg/dL [facility] Comment:Diabetes: >=200 mg/d L plus symptoms Blood Urea Nitrogen 14 8 - 18 mg/dL [facility] Creatinine 0.68(L) 0.70 - 1.20 mg/dL [facility] Sodium 141 135 - 145 mmol/L [facility] Potassium 3.4(L) 3.5 - 5.0 mmol/L [facility] Comment: Please note: ??Patients with WBC >100,000 may have falsely elevated Potassium levels. ??For accurate Potassium quantification in these patients send serum separator tube (gold top) for subsequent determinations. ??Contact the Clinical Chemistry Laboratory if there are any questions. Chloride 104 98 - 107 mmol/L [facility] Carbon Dioxide 25 22 - 31 mmol/L [facility] Anion Gap 12 5 - 15 mmol/L [facility] Calcium 8.9 8.5 - 10.5 mg/dL [facility] Est Glomerular Filtration Rate 101 >=60 mL/min/1. 73 m?? [facility] Comment: This patient's estimated GFR was [...] and symptoms in addition to eGFR. Blood 09/07/2022 2:14 AM EST 09/07/2022 2:19 AM EST Narrative Resulting Agency Comment Spec In Lab eKvin Garcia MD CHEMISTRY ORDERABL ES [facility] [place] [address] * XR Chest One View (09/06/2022 2:21 PM EST) Anatomical Region Laterality Modality Chest N/A Digital Radiogra phy Impressions 09/06/2022 3:05 PM EST No residual left pneumothorax. I have personally reviewed the image(s) and the resident's interpretation and agree with the findings, Yu Roblero MD at 09/06/2022 3:05 PM Thank you for letting us participate in the care of this patient. ??If you are a health care provider and have any questions regarding this report, please contact the number below. ??For patients who have questions please contact the health care technician that requested your imaging first. ? Narrative 09/06/2022 3:05 PM EST EXAMINATION: XR CHEST ONE VIEW CLINICAL HISTORY: interval exam s/p water-seal trial of left pigtail chest tube TECHNIQUE: 1 view of the chest COMPARISON: AP view of the chest 09/06/2022 11:04 AM FINDINGS: Left pigtail pleural catheter projects over the left upper lung. ??No residual left pneumothorax. No right pneumothorax. Unchanged subcutaneous emphysema throughout the thorax. Unchanged contours of the mediastinum and cardiac silhouette. Similar aeration of the lungs compared to prior. No pleural effusions. Procedure Note Yu Roblero MD - 09/06/2022 EXAMINATION: XR CHEST ONE VIEW CLINICAL HISTORY: interval exam s/p water-seal trial of left pigtail chesttube TECHNIQUE: 1 view of the chest COMPARISON: AP view of the chest 09/06/2022 11:04 AM FINDINGS: Left pigtail pleural catheter projects over the left upper lung. Noresidual left pneumothorax. No right pneumothorax. Unchanged subcutaneousemphysema throughout the thorax. Unchanged contours of the mediastinum and cardiac silhouette. Similar aeration of the lungs compared to prior. No pleural effusions. IMPRESSION No residual left pneumothorax. I have personally reviewed the image(s) and the resident's interpretationand agree with the findings, Yu Roblero MD at 09/06/2022 3:05 PM Thank you for letting us participate in the care of this patient. If youare a health care provider and have any questions regarding this report,please contact the number below. For patients who have questions please contactthe health care technician that requested your imaging first. Gemma B [facility] [employer]CH[employer]IC SUPERVISOR IMG DX ORDERABLES * XR Chest One View (09/06/2022 11:14 AM EST) Anatomical Region Laterality Modality Chest N/A Digital Radiogra phy Impressions 09/06/2022 11:33 AM EST Resolution of LEFT pneumothorax Thank you for letting us participate in the care of this patient. ??If you are a health care provider and have any questions regarding this report, please contact the number below. ??For patients who have questions please contact the health care technician that requested your imaging first. ? Narrative 09/06/2022 11:33 AM EST EXAMINATION: XR CHEST ONE VIEW CLINICAL HISTORY: Baseline for chest-tube water-seal trial TECHNIQUE: 1 view of the chest COMPARISON: 09/05/2022 FINDINGS: The patient's LEFT pneumothorax has resolved although the remains significant subcutaneous emphysema throughout the thorax. Left-sided pigtail catheter remains in the LEFT lung apex. Lungs are slightly better aerated than previously. Heart and mediastinum are normal. No right-sided pneumothorax Procedure Note Yu Roblero MD - 09/06/2022 EXAMINATION: XR CHEST ONE VIEW CLINICAL HISTORY: Baseline for chest-tube water-seal trial TECHNIQUE: 1 view of the chest COMPARISON: 09/05/2022 FINDINGS: The patient's LEFT pneumothorax has resolved although the remainssignificant subcutaneous emphysema throughout the thorax. Left-sided pigtailcatheter remains in the LEFT lung apex. Lungs are slightly better aerated than previously. Heart and mediastinum are normal. No right-sidedpneumothorax IMPRESSION Resolution of LEFT pneumothorax Thank you for letting us participate in the care of this patient. If youare a health care provider and have any questions regarding this report,please contact the number below. For patients who have questions please contactthe health care technician that requested your imaging first. [facility] IMG DX ORDERABLES * (ABNORMAL) Differential, Automated (09/06/2022 2:00 AM EST) Neutrophil % 78.8 % [facility] Neutrophil Absolute 6.98(H) 1.70 - 6.10 x10(3)/mc L [facility] Lymph % 14.6 % [facility] Lymphocytes Abs 1.3 0.9 - 3.2 x10(3)/mc L [facility] Monocyte % 5.5 % [facility] Monocyte Abs 0.5 0.3 - 0.9 x10(3)/mc L [facility] Eos % 0.7 % [facility] Eosinophils Abs 0.1 0.0 - 0.4 x10(3)/mc L [facility] Basophil % 0.1 % [facility] Baso Absolute 0.0 0.0 - 0.1 x10(3)/mc L [facility] Immature Gran % 0.30 % [facility] Comment: Immature granulocytes(IG's)percentage and absolute count will include metamyelocytes, myelocytes, and promyelocytes. Blood smears from CBCs yielding IG's will be scanned manually for concordance. If this scan disagrees with the automated IG or if promyelocytes are noted, a manual differential will be performed. Immature Gran Absolute 0.03 0.00 - 0.04 x10(3)/mc L [facility] Blood 09/06/2022 2:00 AM EST 09/06/2022 2:04 AM EST Narrative Resulting Agency Comment Spec In Lab Jesus Vanessa [employer]CH[employer] SUPERVISOR HEMATOLOGY ORDER VY Performing Organization Address [facility] Co de Phone Number [facility] [place] [address] * Phosphorus (09/06/2022 2:00 AM EST) Phosphorus 3.9 2.5 - 4.5 mg/dL [facility] Blood 09/06/2022 2:00 AM EST 09/06/2022 2:04 AM EST Narrative Resulting Agency Comment Spec In Lab Kevin Garcia MD CHEMISTRY ORDERABL ES Performing Organization Address [facility] Co de Phone Number [facility] [place] [address] * Magnesium (09/06/2022 2:00 AM EST) Magnesium 0.75 0.69 - 1.07 mmol/L [facility] Blood 09/06/2022 2:00 AM EST 09/06/2022 2:04 AM EST Narrative Resulting Agency Comment Spec In Lab Kevin Garcia MD CHEMISTRY ORDERABL ES Performing Organization Address [facility] Co de Phone Number [facility] [place] [address] * (ABNORMAL) Basic Metabolic Panel (non-fasting) (09/06/2022 2:00 AM EST) Glucose 101 65 - 199 mg/dL [facility] Comment:Diabetes: >=200 mg/d L plus symptoms Blood Urea Nitrogen 14 8 - 18 mg/dL [facility] Creatinine 0.56(L) 0.70 - 1.20 mg/dL [facility] Sodium 140 135 - 145 mmol/L [facility] Potassium 4.3 3.5 - 5.0 mmol/L [facility] Comment: Please note: ??Patients with WBC >100,000 may have falsely elevated Potassium levels. ??For accurate Potassium quantification in these patients send serum separator tube (gold top) for subsequent determinations. ??Contact the Clinical Chemistry Laboratory if there are any questions. Chloride 104 98 - 107 mmol/L [facility] Carbon Dioxide 26 22 - 31 mmol/L [facility] Anion Gap 10 5 - 15 mmol/L [facility] Calcium 8.9 8.5 - 10.5 mg/dL [facility] Est Glomerular Filtration Rate 106 >=60 mL/min/1. 73 m?? [facility] Comment: This patient's estimated GFR was [...] and symptoms in addition to eGFR. Blood 09/06/2022 2:00 AM EST 09/06/2022 2:04 AM EST Narrative Resulting Agency Comment Spec In Lab Kevin Garcia MD CHEMISTRY ORDERABL ES [facility] [place] [address] * (ABNORMAL) Hemogram (09/06/2022 2:00 AM EST) White Blood Cell 8.9 4.0 - 9.5 x10(3)/[facility] Red Blood Cell 3.89(L) 4.00 - 5.21 x10(6)/ L [facility] Hemoglobin 12.4 11.7 - 15.5 g/dL [facility] Hematocrit 37.0 35.7 - 45.8 % [facility] Mean Cell Volume 95.1(H) 82.6 - 94.4 fL [facility] Mean Cell Hemoglobin 31.9 27.1 - 32.0 pg [facility] Mean Cell Hemoglobin Concentration 33.5 31.7 - 35.0 g/dL [facility] Platelet 254 145 - 357 x10(3)/[facility] RDW Standard Deviation 45.1 37.0 - 46.0 [facility] RDW coefficient of variation 12.9 11.5 - 14.1 % [facility] Mean Platelet Volume 9.1 7.6 - 12.9 fL [facility] NRBC% auto 0.0 % [facility] NRBC Absolute 0.000 0.000 - 0.000 x10(3)/[facility] Blood 09/06/2022 2:00 AM EST 09/06/2022 2:04 AM EST Narrative Resulting Agency Comment Spec In Lab Jesus Vanessa [employer]CH[employer] SUPERVISOR HEMATOLOGY ORDER VY [facility] [place] [address] * CT Chest wo Contrast (Generic) (09/05/2022 8:32 PM EST) Anatomical Region Laterality Modality Chest Computed Tomogra phy Impressions 09/05/2022 8:54 PM EST * ??Intrafissural termination of posterior approach LEFT pigtail catheter, with a trace pneumothorax anteriorly; no catheter kink appreciated although the metallic marker is just at the edge of the allen-pleural thoracic cage. * ??Extensive pneumomediastinum, with large amount of external soft tissue air. * ??Probable pulmonary edema most apparent in the CATHERINE; more prominent superimposed patchy opacities could be infectious/inflammatory. Thank you for letting us participate in the care of this patient. ??If you are a health care provider and have any questions regarding this report, please contact the number below. ??For patients who have questions please contact the health care technician that requested your imaging first. ? Narrative 09/05/2022 8:54 PM EST EXAMINATION: CT CHEST WO CONTRAST (GENERIC) CLINICAL HISTORY: Pneumothorax 56F, L PTX, pigtail in place, ?kink or displacement, now w increasing subcutaneous emphysema. Please assess catheter position and emphysema from NECK to UPPER ABDOMEN TECHNIQUE: Noncontrast CT chest. Absence of intravenous contrast renders suboptimal assessment of potential parenchymal and mediastinal masses as well as hilar lymphadenopathy, and blood vessels and cardiovascular structures. COMPARISON: Chest CT 07/09/2022 and radiographs 09/05/2022 FINDINGS: RIGHT Lung/Pleura: Emphysematous changes. LEFT Lung/Pleura: Emphysematous changes. CATHERINE mosaic attenuation with septal thickening and scattered patchy pulmonary opacities. LLL small spiculated opacity redemonstrated. Trace pneumothorax anteriorly. Intrafissural termination of posterior approach pigtail catheter, without kink appreciated although the metallic marker is just at the edge of the allen-pleural thoracic cage. Mediastinum/Melanie: Extensive pneumomediastinum. Cardiac/Vasculature: Unremarkable. Included Upper Abdomen: LEFT renal hyperplasia redemonstrated. External Soft Tissues: Large amount of LEFT greater than RIGHT chest wall air extending into the neck off the [id number] superiorly as well as over the LEFT abdominal wall off the [id number] inferiorly. Osseous Structures: No acute abnormality identified. Procedure Note Kayode Lowry MD - 09/05/2022 EXAMINATION: CT CHEST WO CONTRAST (GENERIC) CLINICAL HISTORY: Pneumothorax 56F, L PTX, pigtail in place, ?kink or displacement, now w increasing subcutaneous emphysema. Please assess catheter position and emphysema fromNECK to UPPER ABDOMEN TECHNIQUE: Noncontrast CT chest. Absence of intravenous contrast renders suboptimal assessment of potential parenchymal and mediastinal masses aswell as hilar lymphadenopathy, and blood vessels and cardiovascular structures. COMPARISON: Chest CT 07/09/2022 and radiographs 09/05/2022 FINDINGS: RIGHT Lung/Pleura: Emphysematous changes. LEFT Lung/Pleura: Emphysematous changes. CATHERINE mosaic attenuation withseptal thickening and scattered patchy pulmonary opacities. LLL smallspiculated opacity redemonstrated. Trace pneumothorax anteriorly. Intrafissuraltermination of posterior approach pigtail catheter, without kink appreciated althoughthe metallic marker is just at the edge of the allen-pleural thoracic cage. Mediastinum/Melanie: Extensive pneumomediastinum. Cardiac/Vasculature: Unremarkable. Included Upper Abdomen: LEFT renal hyperplasia redemonstrated. External Soft Tissues: Large amount of LEFT greater than RIGHT chest wallair extending into the neck off the [id number] superiorly as well as overthe LEFT abdominal wall off the [id number] inferiorly. Osseous Structures: No acute abnormality identified. IMPRESSION * Intrafissural termination of posterior approach LEFT pigtail catheter,with a trace pneumothorax anteriorly; no catheter kink appreciated although the metallic marker is just at the edge of the allen-pleural thoracic cage. * Extensive pneumomediastinum, with large amount of external soft tissueair. * Probable pulmonary edema most apparent in the CATHERINE; more prominent superimposed patchy opacities could be infectious/inflammatory. Thank you for letting us participate in the care of this patient. If youare a health care provider and have any questions regarding this report,please contact the number below. For patients who have questions please contactthe health care technician that requested your imaging first. Kevin Garcia MD IMG CT ORDERABLES * (ABNORMAL) XR Chest One View (09/05/2022 5:53 PM EST) Anatomical Region Laterality Modality Chest N/A Digital Radiogra phy Addenda Addendum by Nadine Zhao MD on 09/05/2022 6:58 PM EST --------ADDENDUM #1-------- The Workflow Coordinator spoke with Steven Mae on 09/05/2022 6:41 PM to relay the results. Thank you for letting us participate in the care of this patient. ??If you are a health care provider and have any questions regarding this report, please contact the number below. ??For patients who have questions please contact the health care technician that requested your imaging first. ? --------ORIGINAL REPORT -------- EXAMINATION: XR CHEST ONE VIEW CLINICAL HISTORY: Tachycardia. ??Progressive Hypoxia. ??Extesive subcutaneous emphyemsal. TECHNIQUE: 1 view of the chest COMPARISON: September 05, 2022 at 0631 hours FINDINGS: Increased lucency at the left upper lobe. Further collapse of the left lung despite stable presence of the left pleural pigtail catheter. Extensive left subcutaneous emphysema and increasing right upper chest subcutaneous emphysema. Lucency along the right paramediastinal contour suggests pneumomediastinum. IMPRESSION: Enlarging left pneumothorax. Unexpected finding. Thank you for letting us participate in the care of this patient. ??If you are a health care provider and have any questions regarding this report, please contact the number below. ??For patients who have questions please contact the health care technician that requested your imaging first. ? Addendum by Nadien Zhao MD on 09/05/2022 6:43 PM EST --------ADDENDUM #1-------- The Workflow Coordinator spoke with Steven Tu on 09/05/2022 6:41 PM to relay the results. --------ORIGINAL REPORT -------- EXAMINATION: XR CHEST ONE VIEW CLINICAL HISTORY: Tachycardia. ??Progressive Hypoxia. ??Extesive subcutaneous emphyemsal. TECHNIQUE: 1 view of the chest COMPARISON: September 05, 2022 at 0631 hours FINDINGS: Increased lucency at the left upper lobe. Further collapse of the left lung despite stable presence of the left pleural pigtail catheter. Extensive left subcutaneous emphysema and increasing right upper chest subcutaneous emphysema. Lucency along the right paramediastinal contour suggests pneumomediastinum. IMPRESSION: Enlarging left pneumothorax. Unexpected finding. Thank you for letting us participate in the care of this patient. ??If you are a health care provider and have any questions regarding this report, please contact the number below. ??For patients who have questions please contact the health care technician that requested your imaging first. ? Impressions 09/05/2022 6:26 PM EST Enlarging left pneumothorax. Unexpected finding. Thank you for letting us participate in the care of this patient. ??If you are a health care provider and have any questions regarding this report, please contact the number below. ??For patients who have questions please contact the health care technician that requested your imaging first. ? Narrative 09/05/2022 6:26 PM EST EXAMINATION: XR CHEST ONE VIEW CLINICAL HISTORY: Tachycardia. ??Progressive Hypoxia. ??Extesive subcutaneous emphyemsal. TECHNIQUE: 1 view of the chest COMPARISON: September 05, 2022 at 0631 hours FINDINGS: Increased lucency at the left upper lobe. Further collapse of the left lung despite stable presence of the left pleural pigtail catheter. Extensive left subcutaneous emphysema and increasing right upper chest subcutaneous emphysema. Lucency along the right paramediastinal contour suggests pneumomediastinum. Resulting Agency Comment Unexpected Finding Flako Beltrán DO IMG DX ORDERABLES * EKG 12 Lead (09/05/2022 5:46 PM EST) Ventricular rate 134 BPM MUSE SYSTEM Atrial Rate 134 BPM MUSE SYSTEM P-R Interval 154 ms MUSE SYSTEM QRS Duration 58 ms MUSE SYSTEM Q-T Interval 272 ms MUSE SYSTEM QTC Calculated (Bezet) 406 ms MUSE SYSTEM Calculated P [place] 76 degrees MUSE SYSTEM Calculated R [place] 85 degrees MUSE SYSTEM Calculated T [place] 69 degrees MUSE SYSTEM INTERPRETATION Sinus tachycardia Low voltage QRS Anterolateral infarct (cited on or before 03-SEP-2022) Abnormal ECG When compared with ECG of 03-SEP-2022 14:28, Questionable change in initial forces of Lateral leads Confirmed by MD Francisco, Napoleon ([id number]) on 09/06/2022 8:59:19 AM MUSE SYSTEM 09/05/2022 5:46 PM EST 09/06/2022 8:59 AM EST Flako Beltrán DO ECG ORDERABLES MUSE SYSTEM * XR Chest One View (09/05/2022 6:38 AM EST) Anatomical Region Laterality Modality Chest N/A Digital Radiogra phy Impressions 09/05/2022 10:08 AM EST Stable small left apical pneumothorax. Worsening chest wall subcutaneous emphysema. Thank you for letting us participate in the care of this patient. ??If you are a health care provider and have any questions regarding this report, please contact the number below. ??For patients who have questions please contact the health care technician that requested your imaging first. ? Narrative 09/05/2022 10:08 AM EST EXAMINATION: XR CHEST ONE VIEW CLINICAL HISTORY: 56F, s/p lung bx c/b PTX, please assess reexpansion TECHNIQUE: 1 view of the chest COMPARISON: 09/04/2022. FINDINGS: Unchanged small left apical pneumothorax. Increased subcutaneous emphysema throughout the left chest wall and neck as well as now also involving the right neck. A left-sided pigtail chest tube remains in place. No acute airspace opacity. No pleural effusion. Cardiomediastinal silhouette is normal. Procedure Note Carley Lezama MD - 09/05/2022 EXAMINATION: XR CHEST ONE VIEW CLINICAL HISTORY: 56F, s/p lung bx c/b PTX, please assess reexpansion TECHNIQUE: 1 view of the chest COMPARISON: 09/04/2022. FINDINGS: Unchanged small left apical pneumothorax. Increased subcutaneousemphysema throughout the left chest wall and neck as well as now also involving theright neck. A left-sided pigtail chest tube remains in place. No acute airspace opacity. No pleural effusion. Cardiomediastinalsilhouette is normal. IMPRESSION Stable small left apical pneumothorax. Worsening chest wall subcutaneous emphysema. Thank you for letting us participate in the care of this patient. If youare a health care provider and have any questions regarding this report,please contact the number below. For patients who have questions please contactthe health care technician that requested your imaging first. Kevin Garcia MD IMG DX ORDERABLES * (ABNORMAL) Basic Metabolic Panel (non-fasting) (09/05/2022 5:48 AM EST) Glucose 98 65 - 199 mg/dL [facility] Comment:Diabetes: >=200 mg/d L plus symptoms Blood Urea Nitrogen 15 8 - 18 mg/dL [facility] Creatinine 0.60(L) 0.70 - 1.20 mg/dL [facility] Sodium 141 135 - 145 mmol/L [facility] Potassium 3.9 3.5 - 5.0 mmol/L [facility] Comment: Please note: ??Patients with WBC >100,000 may have falsely elevated Potassium levels. ??For accurate Potassium quantification in these patients send serum separator tube (gold top) for subsequent determinations. ??Contact the Clinical Chemistry Laboratory if there are any questions. Chloride 108(H) 98 - 107 mmol/L [facility] Carbon Dioxide 23 22 - 31 mmol/L [facility] Anion Gap 10 5 - 15 mmol/L [facility] Calcium 8.9 8.5 - 10.5 mg/dL [facility] Est Glomerular Filtration Rate 104 >=60 mL/min/1. 73 m?? [facility] Comment: This patient's estimated GFR was [...] and symptoms in addition to eGFR. Blood 09/05/2022 5:48 AM EST 09/05/2022 6:09 AM EST Narrative Resulting Agency Comment Spec In Lab Kevin Garcia MD CHEMISTRY ORDERABL ES Performing Organization Address City/State/[facility] Co de Phone Number [facility] [place] [address] * (ABNORMAL) Hemogram (09/05/2022 5:48 AM EST) White Blood Cell 8.2 4.0 - 9.5 x10(3)/mc L [facility] Red Blood Cell 3.85(L) 4.00 - 5.21 x10(6)/mc L [facility] Hemoglobin 12.4 11.7 - 15.5 g/dL [facility] Hematocrit 36.8 35.7 - 45.8 % [facility] Mean Cell Volume 95.6(H) 82.6 - 94.4 fL [facility] Mean Cell Hemoglobin 32.2(H) 27.1 - 32.0 pg [facility] Mean Cell Hemoglobin Concentration 33.7 31.7 - 35.0 g/dL [facility] Platelet 254 145 - 357 x10(3)/mc L [facility] RDW Standard Deviation 46.2(H) 37.0 - 46.0 fL [facility] RDW coefficient of variation 13.1 11.5 - 14.1 % [facility] Mean Platelet Volume 9.3 7.6 - 12.9 fL [facility] NRBC% auto 0.0 % [facility] NRBC Absolute 0.000 0.000 - 0.000 x10(3)/mc L [facility] Blood 09/05/2022 5:48 AM EST 09/05/2022 6:09 AM EST Narrative Resulting Agency Comment Spec In Lab Jesus Vanessa APRN HEMATOLOGY ORDER VY [facility] [place] [place] [address] * XR Chest One View (09/04/2022 12:08 PM EST) Anatomical Region Laterality Modality Chest N/A Digital Radiogra phy Impressions 09/04/2022 1:19 PM EST Stable to minimally decreased small left apical pneumothorax. Unchanged left subcutaneous emphysema. Left-sided chest tube remains in place. Thank you for letting us participate in the care of this patient. ??If you are a health care provider and have any questions regarding this report, please contact the number below. ??For patients who have questions please contact the health care technician that requested your imaging first. ? Electronically signed by: [facility] ([phone]), at 09/04/2022 1:19 PM Narrative 09/04/2022 1:19 PM EST EXAMINATION: XR CHEST ONE VIEW CLINICAL HISTORY: Evaluation of Pneumothorax TECHNIQUE: 1 view of the chest COMPARISON: 09/04/2022. FINDINGS: Left-sided chest tube remains in place. Left apical pneumothorax is stable to slightly decreased. Similar extent of left chest wall subcutaneous emphysema. Known left upper lobe pulmonary nodule. Coarse lung markings are stable. No acute opacity. No enlarging effusion. Cardiac mediastinal silhouette is unchanged. Procedure Note Carley Lezama MD - 09/04/2022 EXAMINATION: XR CHEST ONE VIEW CLINICAL HISTORY: Evaluation of Pneumothorax TECHNIQUE: 1 view of the chest COMPARISON: 09/04/2022. FINDINGS: Left-sided chest tube remains in place. Left apical pneumothorax is stableto slightly decreased. Similar extent of left chest wall subcutaneous emphysema. Known left upper lobe pulmonary nodule. Coarse lung markings are stable. No acute opacity. No enlargingeffusion. Cardiac mediastinal silhouette is unchanged. IMPRESSION Stable to minimally decreased small left apical pneumothorax. Unchanged left subcutaneous emphysema. Left-sided chest tube remains in place. Thank you for letting us participate in the care of this patient. If youare a health care provider and have any questions regarding this report,please contact the number below. For patients who have questions please contactthe health care technician that requested your imaging first. Kevin Garcia MD IMG DX ORDERABLES * XR Chest One View (09/04/2022 5:16 AM EST) Anatomical Region Laterality Modality Chest N/A Digital Radiogra phy Impressions 09/04/2022 6:19 AM EST 1. ??Unchanged small left apical pneumothorax. 2. ??Similar appearance of the left upper lobe spiculated nodule. 3. ??Decreased reticular opacities throughout the left lung consistent with reexpansion edema. Thank you for letting us participate in the care of this patient. ??If you are a health care provider and have any questions regarding this report, please contact the number below. ??For patients who have questions please contact the health care technician that requested your imaging first. ? Narrative 09/04/2022 6:19 AM EST EXAMINATION: XR CHEST ONE VIEW CLINICAL HISTORY: lung biopsy c/b PTX s/p chest tube TECHNIQUE: 1 view of the chest , single image COMPARISON: Chest radiograph 09/03/2022 FINDINGS: Left pigtail chest tube projects over the left mid hemithorax in unchanged position. Unchanged small left apical pneumothorax. No right-sided pneumothorax. Decreased reticular opacities throughout the left lung. Redemonstration of a spiculated left upper lobe pulmonary nodule measuring proximately 1.9 cm in size. No pleural effusions. Coarse appearance of the lung parenchyma consistent with underlying COPD/emphysema. Normal size of the cardiomediastinal silhouette and bilateral melanie. Similar appearance of subcutaneous gas in the left chest wall and left neck. No acute osseous findings. Procedure Note James Stock MD - 09/04/2022 EXAMINATION: XR CHEST ONE VIEW CLINICAL HISTORY: lung biopsy c/b PTX s/p chest tube TECHNIQUE: 1 view of the chest , single image COMPARISON: Chest radiograph 09/03/2022 FINDINGS: Left pigtail chest tube projects over the left mid hemithorax inunchanged position. Unchanged small left apical pneumothorax. No right-sidedpneumothorax. Decreased reticular opacities throughout the left lung. Redemonstration ofa spiculated left upper lobe pulmonary nodule measuring proximately 1.9 cmin size. No pleural effusions. Coarse appearance of the lung parenchymaconsistent with underlying COPD/emphysema. Normal size of the cardiomediastinalsilhouette and bilateral melanie. Similar appearance of subcutaneous gas in the leftchest wall and left neck. No acute osseous findings. IMPRESSION 1. Unchanged small left apical pneumothorax. 2. Similar appearance of the left upper lobe spiculated nodule. 3. Decreased reticular opacities throughout the left lung consistentwith reexpansion edema. Thank you for letting us participate in the care of this patient. If youare a health care provider and have any questions regarding this report,please contact the number below. For patients who have questions please contactthe health care technician that requested your imaging first. Kevin Garcia MD IMG DX ORDERABLES * (ABNORMAL) Basic Metabolic Panel (non-fasting) (09/04/2022 4:35 AM EST) Glucose 123 65 - 199 mg/dL [facility] Comment:Diabetes: >=200 mg/d L plus symptoms Blood Urea Nitrogen 10 8 - 18 mg/dL [facility] Creatinine 0.54(L) 0.70 - 1.20 mg/dL [facility] Sodium 137 135 - 145 mmol/L [facility] Potassium 4.2 3.5 - 5.0 mmol/L [facility] Comment: Please note: ??Patients with WBC >100,000 may have falsely elevated Potassium levels. ??For accurate Potassium quantification in these patients send serum separator tube (gold top) for subsequent determinations. ??Contact the Clinical Chemistry Laboratory if there are any questions. Chloride 105 98 - 107 mmol/L [facility] Carbon Dioxide 23 22 - 31 mmol/L [facility] Anion Gap 9 5 - 15 mmol/L [facility] Calcium 9.1 8.5 - 10.5 mg/dL [facility] Est Glomerular Filtration Rate 107 >=60 mL/min/1. 73 m?? [facility] Comment: This patient's estimated GFR was [...] and symptoms in addition to eGFR. Blood 09/04/2022 4:35 AM EST 09/04/2022 5:11 AM EST Narrative Resulting Agency Comment Spec In Lab Kevin Garcia MD CHEMISTRY ORDERABL ES [facility] [place] [address] * (ABNORMAL) Hemogram (09/04/2022 4:35 AM EST) White Blood Cell 8.2 4.0 - 9.5 x10(3)/mc L [facility] Red Blood Cell 3.76(L) 4.00 - 5.21 x10(6)/mc L [facility] Hemoglobin 12.4 11.7 - 15.5 g/dL [facility] Hematocrit 35.8 35.7 - 45.8 % [facility] Mean Cell Volume 95.2(H) 82.6 - 94.4 fL [facility] Mean Cell Hemoglobin 33.0(H) 27.1 - 32.0 pg [facility] Mean Cell Hemoglobin Concentration 34.6 31.7 - 35.0 g/dL [facility] Platelet 242 145 - 357 x10(3)/mc L [facility] RDW Standard Deviation 44.6 37.0 - 46.0 fL [facility] RDW coefficient of variation 12.9 11.5 - 14.1 % [facility] Mean Platelet Volume 9.0 7.6 - 12.9 fL [facility] NRBC% auto 0.0 % [facility] NRBC Absolute 0.000 0.000 - 0.000 x10(3)/mc L [facility] Blood 09/04/2022 4:35 AM EST 09/04/2022 5:11 AM EST Narrative Resulting Agency Comment Spec In Lab Jesus Vanessa [employer]CH[employer] SUPERVISOR HEMATOLOGY ORDER VY Performing Organization Address City/[facility]/ZIP Co de Phone Number [facility] [place] [address] * EKG 12 Lead (09/03/2022 2:28 PM EST) Ventricular rate 117 BPM MUSE SYSTEM Atrial Rate 117 BPM MUSE SYSTEM P-R Interval 164 ms MUSE SYSTEM QRS Duration 64 ms MUSE SYSTEM Q-T Interval 318 ms MUSE SYSTEM QTC Calculated (Bezet) 443 ms MUSE SYSTEM Calculated P [place] 80 degrees MUSE SYSTEM Calculated R [place] 21 degrees MUSE SYSTEM Calculated T [place] 77 degrees MUSE SYSTEM INTERPRETATION Sinus tachycardia Low voltage QRS Cannot rule out Anteroseptal infarct (cited on or before 03-SEP-2022) Abnormal ECG When compared with ECG of 03-SEP-2022 11:54, No significant change was found Confirmed by Mil Anderson ([id number]) on 09/04/2022 7:17:53 AM MUSE SYSTEM 09/03/2022 2:28 PM EST 09/04/2022 7:17 AM EST Rosa Bassett MD ECG ORDERABLES MUSE SYSTEM * XR Chest One View (09/03/2022 2:15 PM EST) Anatomical Region Laterality Modality Chest N/A Digital Radiogra phy Impressions 09/03/2022 2:37 PM EST Decreased size of now small left apical pneumothorax. Thank you for letting us participate in the care of this patient. ??If you are a health care provider and have any questions regarding this report, please contact the number below. ??For patients who have questions please contact the health care technician that requested your imaging first. ? Narrative 09/03/2022 2:37 PM EST EXAMINATION: XR CHEST ONE VIEW CLINICAL HISTORY: pneumothorax post chest tube re-positioning is pulmonary expansion improved following revision of chest tube? TECHNIQUE: 1 view of the chest AP portable semiupright. COMPARISON: 09/03/2022. FINDINGS: Interval repositioning of left pleural pigtail catheter. Decreased size of now small left apical pneumothorax. Stable appearance of scattered interstitial opacity in the left lung likely due to crowding and possible post biopsy changes. The cardiac silhouette is within normal limits. Procedure Note Flako Regan MD - 09/03/2022 EXAMINATION: XR CHEST ONE VIEW CLINICAL HISTORY: pneumothorax post chest tube re-positioning is pulmonary expansion improved following revision of chest tube? TECHNIQUE: 1 view of the chest AP portable semiupright. COMPARISON: 09/03/2022. FINDINGS: Interval repositioning of left pleural pigtail catheter. Decreased size of now small left apical pneumothorax. Stable appearance of scattered interstitial opacity in the left lunglikely due to crowding and possible post biopsy changes. The cardiac silhouette iswithin normal limits. IMPRESSION Decreased size of now small left apical pneumothorax. Thank you for letting us participate in the care of this patient. If youare a health care provider and have any questions regarding this report,please contact the number below. For patients who have questions please contactthe health care technician that requested your imaging first. Electronically signed by: Fl[facility] Regan MD[facility]([phone]), at 09/03/2022 2:37 PM Walter Yang MD IMG DX ORDERABLES * IR Chest Tube Placement Left (09/03/2022 12:25 PM EST) Anatomical Region Laterality Modality Chest X-Ray Angiograph y Narrative 09/19/2022 3:00 PM EST Preoperative Diagnosis: ? Chest tube in fissure, poor drainage Postoperative Diagnosis: ?? Same Procedure Performed: IR Drain check and reposition with fluoroscopy. Estimated Blood Loss: None Fluoroscopy time: Please see [facility] IR technologist record for procedural dose/time Cefazolin/ cefuroxime was not ordered for antimicrobial prophylaxis as it is not indicated or strongly backed by the medical literature. Anesthesia: 1. Conscious sedation with titrated Fentanyl with or without Versed during continuous hemodynamic monitoring including pulse oximetry, heart rate and blood pressure was provided by an independent qualified trained Nurse. ?? I, the physician spent minutes of face to face sedation time with the patient. ??Please see nursing notes for exact medication dosages. I was present during the intraservice time as documented by the IR Nurse. 2. 1% lidocaine, local. The patient was informed of the risks, benefits, and alternatives to the procedure and gave written consent, which was then placed in the chart. Appropriate time-out was performed prior to the procedure. Description of Procedure: ??All elements of maximal sterile barrier technique were met including cap, mask, sterile gown, sterile gloves, large sterile sheet, hand hygiene and 2% chlorhexidine for cutaneous antisepsis. The existing drain was prepped and draped in the usual sterile fashion. Fluoroscopically, the drain appeared to be deep within the major fissure. ?? Drain was pulled back, and attempts were made to redirect the wire towards the apex using a stiff Amplatz wire, however, the drain could not be repositioned in this direction due to angle of entry into the chest cavity. ??Ultimately, the 10 [place] pigtail catheter was pulled back to the upper pleural space adjacent to the chest wall, and sutured into position. A spot fluoroscopic film demonstrates the tube to be in good position. Impression: The existing drain appeared to be within the major fissure. ??Following repositioning, the chest tube is in improved position. I, the attending interventional radiologist performed the entire procedure. Rosa Bassett MD IMG IR ORDERABLES * EKG 12 Lead (09/03/2022 11:54 AM EST) Ventricular rate 97 BPM MUSE SYSTEM Atrial Rate 98 BPM MUSE SYSTEM QRS Duration 60 ms MUSE SYSTEM Q-T Interval 340 ms MUSE SYSTEM QTC Calculated (Bezet) 431 ms MUSE SYSTEM Calculated R [place] -10 degrees MUSE SYSTEM Calculated T [place] 126 degrees MUSE SYSTEM INTERPRETATION Poor data quality, interpretation may be adversely affected Probably normal sinus rhythm Low voltage QRS Cannot rule out Anteroseptal infarct , age undetermined Abnormal ECG No previous ECGs available Confirmed by Mil Anderson ([id number]) on 09/03/2022 1:25:00 PM MUSE SYSTEM 09/03/2022 11:5 4 AM EST 09/03/2022 1:25 PM EST Rosa Bassett MD ECG ORDERABLES MUSE SYSTEM * (ABNORMAL) Blood Gas Arterial (NL) (09/03/2022 11:40 AM EST) pH, Arterial 7.26(Criti ben) 7.35 - 7.45 [facility] Comment:Called by: MANDY, Read back by: AKILAH WORKMAN, Date/Time:09/03/22 11:58. PCO2, Arterial 48(H) 35 - 45 mmHg [facility] PO2, Arterial 106(H) 85 - 104 mmHg [facility] Bicarbonate, Arterial 21.0 20.0 - 26.0 mmol/L [facility] Base Excess, Arterial -6.0(L) -3.0 - 3.0 mmol/L [facility] Hgb Blood Gas 13.7 11.7 - 15.5 g/dL [facility] Oxyhemoglobin, Arterial 96.9 94.0 - 97.0 % [facility] Carboxyhemoglob in, Arterial 0.4 % [facility] Comment: Nonsmokers: ??0.5-1.5% COHB Smokers: ??Variable, but usually less than 10% Toxic: 20 - 30% COHB Lethal: ??Greater than 60% COHB Methemoglobin, Arterial 0.3 <=1.5 % [facility] Na Whole Blood 138 135 - 145 mmol/L [facility] K Whole Blood 4.4 3.5 - 5.0 mmol/L [facility] Comment: Please note: ??Patients with WBC >100,000 may have falsely elevated Potassium levels. ??Contact the Clinical Chemistry Laboratory if there are any questions. ICa Whole Blood 1.17 1.15 - 1.33 mmol/L [facility] Comment: Note: ??Total bilirubin higher than 20 mg/dL may lead to falsely low ionized calcium. CL Whole Blood 107 98 - 107 mmol/L [facility] Gluc Whole Bld 173 65 - 199 mg/dL [facility] Comment:Diabetes: >=200 mg/d L plus symptoms. Lactate WB 1.1 0.5 - 2.2 mmol/L [facility] Blood Arterial Draw / Unknown 09/03/2022 11:40 AM EST 09/03/2022 11:51 AM EST Narrative Resulting Agency Comment Spec In Lab Rosa Bassett MD CHEMISTRY ORDERABLE S Performing Organization Address City/[facility]/ZIP Co de Phone Number [facility] [place] [address] * Gold Tube HOLD (09/03/2022 11:00 AM EST) Gold Hold Sample in lab. [facility] Blood Venous Draw / Unknown 09/03/2022 11:00 AM EST 09/03/2022 11:19 AM EST Wang Disla MD CHEMISTRY ORDERABLES [facility] [place] [address] * Blue Tube HOLD (09/03/2022 11:00 AM EST) Pathologist [facility] Blue Hold Sample in lab. [facility] Blood Venous Draw / Unknown 09/03/2022 11:00 AM EST 09/03/2022 11:19 AM EST Wang Disla MD HEMATOLOGY ORDERABLE S [facility] [place] [address] * (ABNORMAL) Differential, Automated (09/03/2022 11:00 AM EST) [facility] Neutrophil % 53.4 % [facility] Neutrophil Absolute 4.17 1.70 - 6.10 x10(3)/mc L [facility] Lymph % 32.3 % [facility] Lymphocytes Abs 2.5 0.9 - 3.2 x10(3)/mc L [facility] Monocyte % 8.7 % [facility] Monocyte Abs 0.7 0.3 - 0.9 x10(3)/mc L [facility] Eos % 3.6 % [facility] Eosinophils Abs 0.3 0.0 - 0.4 x10(3)/mc L [facility] Basophil % 1.2 % [facility] Baso Absolute 0.1 0.0 - 0.1 x10(3)/mc L [facility] Immature Gran % 0.80 % [facility] Comment: Immature granulocytes(IG's)percentage and absolute count will include metamyelocytes, myelocytes, and promyelocytes. Blood smears from CBCs yielding IG's will be scanned manually for concordance. If this scan disagrees with the automated IG or if promyelocytes are noted, a manual differential will be performed. Immature Gran Absolute 0.06(H) 0.00 - 0.04 x10(3)/mc L [facility] Blood 09/03/2022 11:0 0 AM EST 09/03/2022 11:19 AM EST Narrative Resulting Agency Comment Spec In Lab Wang Disla MD HEMATOLOGY ORDERABLE S [facility] [place] [address] * (ABNORMAL) Hemogram (09/03/2022 11:00 AM EST) White Blood Cell 7.8 4.0 - 9.5 x10(3)/mc L [facility] Red Blood Cell 4.09 4.00 - 5.21 x10(6)/mc L [facility] Hemoglobin 12.8 11.7 - 15.5 g/dL [facility] Hematocrit 39.5 35.7 - 45.8 % [facility] Mean Cell Volume 96.6(H) 82.6 - 94.4 fL [facility] Mean Cell Hemoglobin 31.3 27.1 - 32.0 pg [facility] Mean Cell Hemoglobin Concentration 32.4 31.7 - 35.0 g/dL [facility] Platelet 292 145 - 357 x10(3)/mc L [facility] RDW Standard Deviation 45.7 37.0 - 46.0 [facility] RDW coefficient of variation 12.8 11.5 - 14.1 % [facility] Mean Platelet Volume 9.1 7.6 - 12.9 fL [facility] NRBC% auto 0.0 % [facility] NRBC Absolute 0.000 0.000 - 0.000 x10(3)/mc L [facility] Blood 09/03/2022 11:0 0 AM EST 09/03/2022 11:19 AM EST Narrative Resulting Agency Comment Spec In Lab Wang Disla MD HEMATOLOGY ORDERABLE S [facility] [place] [address] * (ABNORMAL) Comprehensive metabolic panel (non-fasting) (09/03/2022 11:00 AM EST) Glucose 176 65 - 199 mg/dL [facility] Comment:Diabetes: >=200 mg/d L plus symptoms Blood Urea Nitrogen 11 8 - 18 mg/dL [facility] Creatinine 0.70 0.70 - 1.20 mg/dL [facility] Sodium 139 135 - 145 mmol/L [facility] Potassium 4.2 3.5 - 5.0 mmol/L [facility] Comment: Please note: ??Patients with WBC >100,000 may have falsely elevated Potassium levels. ??For accurate Potassium quantification in these patients send serum separator tube (gold top) for subsequent determinations. ??Contact the Clinical Chemistry Laboratory if there are any questions. Chloride 107 98 - 107 mmol/L [facility] Carbon Dioxide 25 22 - 31 mmol/L [facility] Anion Gap 7 5 - 15 mmol/L [facility] Calcium 8.7 8.5 - 10.5 mg/dL [facility] Protein, Total 6.7 6.1 - 8.0 g/dL [facility] Albumin 4.1 3.2 - 5.2 g/dL [facility] Aspartate Aminotransferase 25 0 - 30 unit/L [facility] Alanine Aminotransferase 30 0 - 30 unit/L [facility] Alkaline Phosphatase 98 35 - 105 unit/L [facility] Bilirubin, Total <0.2(L) 0.2 - 1.3 mg/dL [facility] Est Glomerular Filtration Rate 100 >=60 mL/min/1. 73 m?? [facility] Comment: This patient's estimated GFR was [...] and symptoms in addition to eGFR. Blood 09/03/2022 11:0 0 AM EST 09/03/2022 11:19 AM EST Narrative Resulting Agency Comment Spec In Lab Rosa Basstet MD CHEMISTRY ORDERABLE S [facility] [place] [address] documented in this encounter Visit Diagnoses Diagnosis Pneumothorax after biopsy- Primary Iatrogenic pneumothorax Pneumothorax, unspecified type Tachycardia Tachycardia, unspecified documented in this encounter Admitting Diagnoses Diagnosis Pneumothorax after biopsy Iatrogenic pneumothorax documented in this encounter Administered Medications Inactive Administered Medications - up to 3 most recent administrations Medication Order MAR Action Action Date Dose Rate Site acetaminophen (Tylenol) (32.02 mg/mL) oral liquid 1,000 mg 1,000 mg, Oral, EVERY 6 HOURS PRN, Starting on Sat09/05/22 at 1228, Until Sat09/07/22 at 0049, Fever, Maximum dose of acetaminophen is 4000 mg from all sources in 24 hours. When ordered for pain, acetaminophen should be given even when other ordered pain medications are indicated. , Routine Given 09/07/2022 12:44 AM EST 1,000 mg Given 09/06/2022 7:53 AM EST 1,000 mg Given 09/05/2022 12:45 PM EST 1,000 mg acetaminophen (Tylenol) (32.02 mg/mL) oral liquid 1,000 mg 1,000 mg, Oral, EVERY 6 HOURS PRN, Starting on Sat09/07/22 at 0049, Until 09/08/22 at 1826, Fever, Pain, Maximum dose of acetaminophen is 4000 mg from all sources in 24 hours. When ordered for pain, acetaminophen should be given even when other ordered pain medications are indicated. , Routine Given 09/07/2022 11:11 AM EST 1,000 mg acetaminophen (Tylenol) tablet 1,000 mg 1,000 mg, Oral, ONCE, 1 dose, On 09/03/22 at 1110, Maximum dose of acetaminophen is 4000 mg from all sources in 24 hours. When ordered for pain, acetaminophen should be given even when other ordered pain medications are indicated. , STAT Given 09/03/2022 1:55 PM EST 1,000 mg acetaminophen (Tylenol) tablet 1,000 mg 1,000 mg, Oral, EVERY 6 HOURS PRN, Starting on Sat09/03/22 at 1603, Until Sat09/05/22 at 1228, Pain, Maximum dose of acetaminophen is 4000 mg from all sources in 24 hours. When ordered for pain, acetaminophen should be given even when other ordered pain medications are indicated. , Routine Given 09/05/2022 5:06 AM EST 1,000 mg Given 09/04/2022 11:42 PM EST 1,000 mg Given 09/04/2022 1:25 PM EST 1,000 mg albuteroL (Proventil, Ventolin) (2.5 mg/3 mL) (0.083 %) nebulizer solution 2.5 mg 2.5 mg, Nebulization, ONCE, 1 dose, On Sat09/03/22 at 1443, STAT Given 09/03/2022 2:48 PM EST 2.5 mg albuteroL (Proventil, Ventolin) (2.5 mg/3 mL) (0.083 %) nebulizer solution 2.5 mg 2.5 mg, Nebulization, EVERY 4 HOURS PRN, Starting on Sat09/03/22 at 1625, Until 09/08/22 at 1826, Wheezing, Shortness of Breath, Routine Given 09/08/2022 4:08 AM EST 2.5 mg Given 09/07/2022 2:47 PM EST 2.5 mg Given 09/06/2022 3:46 PM EST 2.5 mg budesonide (Pulmicort) nebulizer suspension 500 mcg 500 mcg, Nebulization, 2 TIMES DAILY (RESPIRATORY THERAPY), First dose on Sat09/03/22 at 1800, Until Discontinued, Routine Given 09/08/2022 5:08 AM EST 500 mcg Given 09/07/2022 8:10 PM EST 500 mcg Given 09/07/2022 5:03 AM EST 500 mcg calcium carbonate (Tums) chewable tablet 1,000 mg 1,000 mg, Oral, EVERY 6 HOURS PRN, Starting on Sat09/05/22 at 0521, Until 09/08/22 at 1826, Heartburn, Routine Given 09/05/2022 6:13 AM EST 1,000 mg enoxaparin (Lovenox) (40 mg/0.4 mL) subcutaneous injection 40 mg 40 mg, Subcutaneous, NIGHTLY, First dose on Sat09/03/22 at 2100, Until Discontinued, Routine Given 09/07/2022 8:25 PM EST 40 mg Given 09/06/2022 8:10 PM EST 40 mg Given 09/05/2022 9:02 PM EST 40 mg famotidine (Pepcid) tablet 20 mg 20 mg, Oral, DAILY PRN, Starting on Sat09/05/22 at 1253, Until Sat09/08/22 at 1826, Heartburn, Routine fentaNYL (PF) (50 mcg/mL) injection 25 mcg 25 mcg, Intravenous, ONCE, 1 dose, On Sat09/03/22 at 1147, If medication ordered subcutaneously, do not administer more than 2 mL as a single injection., STAT Given 09/03/2022 11:51 AM EST 25 m cg fentaNYL (pf) (50 mcg/mL) multi-dose injection 25-50 mcg 25-50 mcg, Intravenous, EVERY 3 MIN PRN, Starting on Sat09/05/22 at 1717, Until Sat09/05/22 at 2040, Pain, per unit protocol, For use in Interventional Radiology (IR) only for procedural sedation with direct provider supervision and verbal order. - Start dose: 50 mcg (reduce dose to 25 mcg if history of sedation sensitivity). - Titration dose: 25-50 mcg IV, (based on patient response) every 3 minutes PRN to maintain procedural pain less than 2 per Pain Scale. Maximum dose: 50 mcg/dose, 250 mcg/hour, Angio/IR (Intra-Procedure), Routine Given 09/05/2022 5:21 PM EST 25 mcg guaiFENesin ER (Mucinex) tablet 1,200 mg 1,200 mg, Oral, 2 TIMES DAILY, First dose on Sat09/03/22 at 2100, Until Discontinued, DO NOT CRUSH OR OPEN, Routine Given 09/08/2022 9:13 AM EST 1,200 mg Given 09/07/2022 8:24 PM EST 1,200 mg Given 09/07/2022 8:02 AM EST 1,200 mg ibuprofen (Advil) tablet 600 mg 600 mg, Oral, EVERY 6 HOURS PRN, Starting on Sat09/07/22 at 1313, Until 09/08/22 at 1826, Pain, Administer orally with milk or food to minimize GI irritation. Maximum dose of 3,200 mg from all sources in 24 hours, Routine ipratropium-albuteroL (Duoneb) 0.5 mg-3 mg(2.5 mg base)/3 mL nebulizer solution 3 mL 3 mL, Nebulization, EVERY 15 MIN, 3 doses, First dose on Sat09/03/22 at 1110, Last dose on Sat09/03/22 at 1140, STAT Given 09/03/2022 11:47 AM EST 3 mLs Given 09/03/2022 11:40 AM EST 3 mLs Given 09/03/2022 11:20 AM EST 3 mLs ipratropium-albuteroL (Duoneb) 0.5 mg-3 mg(2.5 mg base)/3 mL nebulizer solution 3 mL 3 mL, Nebulization, EVERY 6 HOURS SCHEDULED, First dose (after last modification) on Sat09/03/22 at 1800, Until Discontinued, Routine Given 09/08/2022 2:0 0 PM EST 3 mLs Given 09/08/2022 5:23 AM EST 3 mLs Given 09/08/2022 12:26 AM EST 3 mLs LORazepam (Ativan) tablet 0.5 mg 0.5 mg, Oral, 3 TIMES DAILY PRN, Starting on Sat09/07/22 at 1039, Until 09/08/22 at 1826, Anxiety, Routine Given 09/07/2022 10:02 PM EST 0.5 mg Given 09/07/2022 11:15 AM EST 0.5 mg magnesium sulfate 2 g in sterile water 50 mL infusion 2 g, Intravenous, ONCE, 1 dose, On Tori 09/06/22 at 0345, Administer over 120 Minutes New Bag 09/06/2022 4:09 AM EST 2 g 25 mL/hr magnesium sulfate 2 g in sterile water 50 mL infusion 2 g, Intravenous, ONCE, 1 dose, On Sat09/07/22 at 1130, Administer over 120 Minutes New Bag 09/07/2022 11:15 AM EST 2 g 25 mL/hr magnesium sulfate 2 g in sterile water 50 mL infusion 2 g, Intravenous, ONCE, 1 dose, On 09/08/22 at 0945, Administer over 120 Minutes New Bag 09/08/2022 9:14 AM EST 2 g 25 mL/hr methylPREDNISolone sod succ (pf) (SOLU-Medrol) (125 mg/2 mL) injection 125 mg 125 mg, Intravenous, ONCE, 1 dose, On Sat09/03/22 at 1110 Given 09/03/2022 11:17 AM EST 125 mg montelukast (Singulair) tablet 10 mg 10 mg, Oral, NIGHTLY, First dose on Sat09/03/22 at 2100, Until Discontinued, Routine Given 09/07/2022 8:24 PM EST 10 mg Given 09/06/2022 8:10 PM EST 10 mg Given 09/05/2022 9:02 PM EST 10 mg ondansetron (pf) (Zofran) (2 mg/mL) injection 4 mg 4 mg, Intravenous, ONCE, 1 dose, On Sat09/03/22 at 1128, STAT Given 09/03/2022 11:32 AM EST 4 mg ondansetron (pf) (Zofran) (2 mg/mL) injection 4 mg 4 mg, Intravenous, EVERY 8 HOURS PRN, Starting on Sat09/05/22 at 2108, Until 09/08/22 at 1826, Nausea potassium chloride ER (K-Dur/Klor-Con) tablet 40 mEq 40 mEq, Oral, ONCE, 1 dose, On Sat09/07/22 at 0430, Potassium chloride ER tablet preferred; may give liquid if unable to swallow ER tablet., Routine Given 09/07/2022 4:15 AM EST 40 mEq predniSONE (Deltasone) tablet 40 mg 40 mg, Oral, DAILY, First dose on Tori 09/06/22 at 0900, Until Discontinued, Routine Given 09/06/2022 8:32 AM EST 40 mg prochlorperazine (Compazine) (5 mg/mL) injection 5 mg 5 mg, Intravenous, EVERY 6 HOURS PRN, Starting on Sat09/05/22 at 1915, Until 09/08/22 at 1826, Nausea, STAT Given 09/05/2022 7:29 PM EST 5 mg prochlorperazine (Compazine) 10 mg/2 mL (5 mg/mL) injection 1 dose, Starting on Sat09/03/22 at 1240, Until Sat09/03/22 at 1245, VINCENT VALDEZ: [email or web address] override Given 09/03/2022 12:45 PM EST 10 mg sodium chloride 0.9 % (flush) (BD PosiFlush Normal Saline 0.9) flush 5 mL 5 mL, Intravenous, 2 TIMES DAILY, First dose on Sat09/03/22 at 2100, Until Discontinued, Routine Given 09/08/2022 9:13 AM EST 20 mLs Given 09/07/2022 9:00 PM EST 5 mLs Given 09/05/2022 8:59 AM EST 5 mLs sodium chloride 0.9% 500 mL IV bolus at 500 mL/hr, Intravenous, ONCE, 1 dose, On Sat09/03/22 at 1347 New Bag 09/03/2022 1:56 PM EST 500 mL/ hr documented in this encounter Active and Recently Administered Medications Times are shown in EST. Scheduled Medication Order 09/06/2022 09/07/2022 09/08/2022 budesonide (Pulmicort) nebulizer suspension 500 mcg 500 mcg, Nebulization, 2 TIMES DAILY (RESPIRATORY THERAPY), First dose on Sat09/03/22 at 1800, Until Discontinued, Routine 0616 (Given - Provider: Naif Enriquez RN)191 (Given - Provider: Naif Enriquez RN) 050 (Given - Provider: Naif Enriquez RN)2009 (Given - Provider: Jojo Dougherty, ANNA) 507 (Given - Provider: Myrna Goldman, ANNA) enoxaparin (Lovenox) (40 mg/0.4 mL) subcutaneous injection 40 mg 40 mg, Subcutaneous, NIGHTLY, First dose on Sat09/03/22 at 2100, Until Discontinued, Routine 2009 (Given - Provider: Naif Enriquez RN) 2024 (Given - Provider: Maria Dolores Ramirez, ANNA) guaiFENesin ER (Mucinex) tablet 1,200 mg 1,200 mg, Oral, 2 TIMES DAILY, First dose on Sat09/03/22 at 2100, Until Discontinued, DO NOT CRUSH OR OPEN, Routine 0832 (Given - Provider: Amberly Shelley, ANNA)2009 (Given - Provider: Naif Enriquez RN) 08 (Given - Provider: Amberly Shelley RN)2024 (Given - Provider: Maria Dolores Ramirez RN) 0913 (Given - Provider: Niranjan Dietz, ANNA) ipratropium-albuteroL (Duoneb) 0.5 mg-3 mg(2.5 mg base)/3 mL nebulizer solution 3 mL 3 mL, Nebulization, EVERY 6 HOURS SCHEDULED, First dose (after last modification) on Sat09/03/22 at 1800, Until Discontinued, Routine 0616 (Given - Provider: Naif Enriquez RN)1139 (Given - Provider: Coco Shetty RCP)1916 (Given - Provider: Naif Enriquez, ANNA) 0007 (Given - Provider: Naif Enriquez, ANNA)0503 (Given - Provider: Naif Enriquez RN)0912 (Given - Provider: Amberly Shelley RN)1200 (Not Given - Provider: Amberly Shelley RN - Reason: Order parameters not met)1959 (Given - Provider: Jojo Dougherty RN) 0026 (Given - Provider: Myrna Goldman RN)0523 (Given - Provider: Myrna Goldman RN)1400 (Given - Provider: Roro Mcduffie RCP) magnesium sulfate 2 g in sterile water 50 mL infusion (COMPLETED) 2 g, Intravenous, ONCE, 1 dose, On Tori 09/06/22 at 0345, Administer over 120 Minutes 0409 (New Bag - Provider: Naif Enriquez RN)0609 (Stopped - Provider: Naif Enriquez RN) magnesium sulfate 2 g in sterile water 50 mL infusion (COMPLETED) 2 g, Intravenous, ONCE, 1 dose, On Sat09/07/22 at 1130, Administer over 120 Minutes 1115 (New Bag - Provider: Amberly Shelley RN)1315 (Stopped - Provider: Amberly Shelley RN) magnesium sulfate 2 g in sterile water 50 mL infusion (COMPLETED) 2 g, Intravenous, ONCE, 1 dose, On Sat09/08/22 at 0945, Administer over 120 Minutes 0914 (New Bag - Provider: Niranjan Dietz, ANNA)1114 (Stopped - Provider: Niranjan Dietz, ANNA) montelukast (Singulair) tablet 10 mg 10 mg, Oral, NIGHTLY, First dose on Sat09/03/22 at 2100, Until Discontinued, Routine 2009 (Given - Provider: Naif Enriquez, RN) 2023 (Given - Provider: Maria Dolores Ramirez, ANNA) potassium chloride ER (K-Dur/Klor-Con) tablet 40 mEq (COMPLETED) 40 mEq, Oral, ONCE, 1 dose, On Sat09/07/22 at 0430, Potassium chloride ER tablet preferred; may give liquid if unable to swallow ER tablet., Routine 414 (Given - Provider: Naif Enriquez, ANNA) predniSONE (Deltasone) tablet 40 mg (CANCELED) 40 mg, Oral, DAILY, First dose on Tori 09/06/22 at 0900, Until Discontinued, Routine 08 (Given - Provider: Amberly Shelley RN) sodium chloride 0.9 % (flush) (BD PosiFlush Normal Saline 0.9) flush 5 mL 5 mL, Intravenous, 2 TIMES DAILY, First dose on Sat09/03/22 at 2100, Until Discontinued, Routine 0900 (Not Given - Provider: Amberly Shelley RN - Reason: Patient/family refused)2099 (Not Given - Provider: Naif Enriquez, ANNA - Reason: Order parameters not met) 08 (Not Given - Provider: Amberly Shelley RN - Reason: Patient/family refused)2099 (Given - Provider: Myrna Goldman, ANNA) 09 (Given - Provider: Niranjan Dietz RN) PRN Medication Order 09/06/2022 09/07/2022 09/08/2022 acetaminophen (Tylenol) (32.02 mg/mL) oral liquid 1,000 mg (CANCELED) 1,000 mg, Oral, EVERY 6 HOURS PRN, Starting on Sat09/05/22 at 1228, Until Sat09/07/22 at 0049, Fever, Maximum dose of acetaminophen is 4000 mg from all sources in 24 hours. When ordered for pain, acetaminophen should be given even when other ordered pain medications are indicated. , Routine 075 (Given - Provider: Amberly Shelley RN) 43 (Given - Provider: Naif Enriquez, ANNA) acetaminophen (Tylenol) (32.02 mg/mL) oral liquid 1,000 mg 1,000 mg, Oral, EVERY 6 HOURS PRN, Starting on Sat09/07/22 at 0049, Until 09/08/22 at 1826, Fever, Pain, Maximum dose of acetaminophen is 4000 mg from all sources in 24 hours. When ordered for pain, acetaminophen should be given even when other ordered pain medications are indicated. , Routine 1111 (Given - Provider: Amberly Shelley, RN) albuteroL (Proventil, Ventolin) (2.5 mg/3 mL) (0.083 %) nebulizer solution 2.5 mg 2.5 mg, Nebulization, EVERY 4 HOURS PRN, Starting on Sat09/03/22 at 1625, Until 09/08/22 at 1826, Wheezing, Shortness of Breath, Routine 0409 (Given - Provider: Naif Enriquez RN)0833 (Given - Provider: Amberly Shelley RN)1546 (Given - Provider: Coco Shetty RCP) 1447 (Given - Provider: Coco Shetty RCP) 0408 (Given - Provider: Mike Ren RN) calcium carbonate (Tums) chewable tablet 1,000 mg 1,000 mg, Oral, EVERY 6 HOURS PRN, Starting on Sat09/05/22 at 0521, Until 09/08/22 at 1826, Heartburn, Routine famotidine (Pepcid) tablet 20 mg 20 mg, Oral, DAILY PRN, Starting on Sat09/05/22 at 1253, Until 09/08/22 at 1826, Heartburn, Routine ibuprofen (Advil) tablet 600 mg 600 mg, Oral, EVERY 6 HOURS PRN, Starting on Sat09/07/22 at 1313, Until Sat09/08/22 at 1826, Pain, Administer orally with milk or food to minimize GI irritation. Maximum dose of 3,200 mg from all sources in 24 hours, Routine lidocaine (Xylocaine) 1% (10 mg/mL) injection 3 mg 3 mg (0.3 mL), Subcutaneous, ONCE PRN, 1 dose, Starting on Sat09/03/22 at 1603, Until 09/08/22 at 1826, for discomfort with PIV insertion, Routine LORazepam (Ativan) tablet 0.5 mg 0.5 mg, Oral, 3 TIMES DAILY PRN, Starting on Sat09/07/22 at 1039, Until 09/08/22 at 1826, Anxiety, Routine 1115 (Given - Provider: Amberly Shelley, RN)2202 (Given - Provider: Myrna Goldman, ANNA) ondansetron (pf) (Zofran) (2 mg/mL) injection 4 mg 4 mg, Intravenous, EVERY 8 HOURS PRN, Starting on Sat09/05/22 at 2108, Until 09/08/22 at 1826, Nausea prochlorperazine (Compazine) (5 mg/mL) injection 5 mg 5 mg, Intravenous, EVERY 6 HOURS PRN, Starting on Sat09/05/22 at 1915, Until 09/08/22 at 1826, Nausea, STAT sodium chloride 0.9 % (flush) (BD PosiFlush Normal Saline 0.9) flush 5-20 mL 5-20 mL, Intravenous, EVERY 1 MIN PRN, Starting on 09/03/22 at 1603, Until 09/08/22 at 1826, flush, Flush pertains to all indwelling lines. Flush per protocol found in the job aid using the link provided on this medication record., Routine documented in this encounter Care Teams Cooler Service Supervisor Relationship Specialty Start Date End Date Brittany Wynne MD [address] [place] [address] [place] [address] PCP - General Family Medicine 10/23/21 documented as of this encounter
--- OUTSIDE RECORDS SUMMARY | 2024-10-26 16:32 | XMS_ITS | Encounter Summary ---
[place] [address] Care Team Providers Care Brim Stretching Machine Operator Name Role Phone Brittany Wynne MD Primary Care Provider + Reason for Visit * Reason Onset Date Comments Prior Authorization 07/12/2022 Encounter Details Date Type Department Care Team (Late st Contact Info) Description 07/12/2022 Telephone Hematology [place] [phone] Apurva Marroquin Prior Authorization (/) Social History Tobacco Use Types Packs/Day Years [...] encounter Miscellaneous Notes * Telephone Encounter - Apurva Reyes - 07/12/2022 1:17 PM EDT Urgent PA request for PET scan. Not able to submit PA via AIM. Call to plan directly; [phone]. No PA required Call Ref #: [id number] documented in this encounter Plan of Treatment Upcoming Encounters Date Type Department Care Team (Late st Contact Info) Description 01/11/2025 1:00 PM EDT Office Visit Radiation Oncology at [address] [phone] Misty Llanos MD [facility] [place] [address] 08/23/2025 1:10 PM EST Appointment Mammography/[place] [phone] Jody Tam APRN [facility] [place] [address] 08/23/2025 2:10 PM EST Office Visit [place] [address] Jody Tam APRN [facility] [place] [address] documented as of this encounter Visit Diagnoses Not on filedocumented in this encounter Care Teams Brim Stretching Machine Operator Relationship Specialty Start Date End Date Brittany Wynne MD [address] [place] [address] [place] [address] PCP - General Family Medicine 10/23/21 documented as of this encounter
--- OUTSIDE RECORDS SUMMARY | 2024-10-26 16:32 | XMS_ITS | Encounter Summary ---
Author Organization [facility] Address [facility] [place] [address] Care Team Providers Care Bullet Swaging Machine Adjuster Name Role Phone Brittany Wynne MD Primary Care Provider + Encounter Details Date Type Department Care Team (Latest Contact Info) Description 08/27/2022 Travel Social History Tobacco Use Types Packs/Day [...] EDT Office Visit Radiation Oncology at [address] [phone] Misty Llanos MD [facility] [place] [address] 08/23/2025 1:10 PM EST Appointment Mammography/[place] [phone] Jody Tam [facility] [place] [place] [address] 08/23/2025 2:10 PM EST Office [place] [phone] Jody Tam [facility] [place] [address] documented as of this encounter Visit Diagnoses Not on filedocumented in this encounter Care Teams Bullet Swaging Machine Adjuster Relationship Specialty Start Date End Date Brittany Wynne MD [address] [place] [address] [place] [address] PCP - General Family Medicine 10/23/21 documented as of this encounter
--- OUTSIDE RECORDS SUMMARY | 2024-10-26 16:32 | XMS_ITS | Encounter Summary ---
[place] [address] Care Team Providers Care Lacquer Coater Name Role Phone Brittany Wynne MD Primary Care Provider + Reason for Referral * Diagnostic Test (Routine) - Closed Specialty Diagnoses / Procedures Referred By Sandeep palm Referred To Contact Radiology Diagnoses Solitary pulmonary nodule Procedures CT Guided Biopsy Lung Jacqui Logan MD [address] [place] [address] [facility] [place] [address] Referral ID Status Reason Start Date Expiration Date V isits Requested Visits Authorized [id number] Closed Specialty Service Requested 08/16/2022 02/15/2024 1 1 Reason for Visit * Auth/Cert (Routine) Specialty Diagnoses / Procedures Referred By Sandeep palm Referred To Contact Diagnoses Pneumothorax after biopsy Procedures ER [place] [address] [facility] Referral ID Status Reason Start Date Expiration Date Visits Re quested Visits Authorized [id number] 1 1 Encounter Details Date Type Department Care Team (Latest Contact Info) Description 09/03/2022 8:27 AM EST - 09/03/2022 10:43 AM EST Hospital Encounter [facility] [place] [address] Jacqui Logan MD [address] [place] [id number] Pre-op testing; Lung nodule; Solitary pulmonary nodule Discharge Disposition: Home Social History Tobacco Use [...] Sign Reading Time Taken Comments Blood Pressure 176/99 09/03/2022 10:35 AM EST Pulse 94 09/03/2022 10:05 AM EST Temperature 36.3 ??C (97.4 ??F) 09/03/2022 8:57 AM ES T Respiratory Rate 31 09/03/2022 10:35 AM EST Oxygen Saturation 97% 09/03/2022 10:35 AM EST Inhaled Oxygen Concentration - - Weight - - Height - - Body Mass Index - - documented in this encounter Medications at Time [...] nebulization every 4 hours as needed. 10/07/2021 levoFLOXacin (Levaquin) 750 mg Tablet Take 750 mg by mouth daily. 07/11/2022 09/07/2022 fluticasone-umeclidiniu m-vilanterol (Trelegy Ellipta) 200-62.5-25 mcg Inhale 1 puff into the lungs daily. 09/07/2022 budesonide (Pulmicort) 0.5 mg/2 mL Suspension for Nebulization Take 0.5 mg by nebulization daily. 09/07/2022 Advair HFA 230-21 mcg/actuation HFA Aerosol Inhaler 03/16/2022 09/07/2022 albuteroL 90 mcg/actuation HFA Aerosol Inhaler 10/02/2021 09/07/2022 documented as of this encounter Progress Notes * Flako Beltrán DO - 09/03/2022 10:47 AM EST I was paged at approximately 10:25 AM regarding progressive hypoxia for Ms. Morales following her procedure. Initially, during procedure, the patient developed a large pneumothorax for which she was hypoxic to the low 80s and reported some shortness of breath. A pleural catheter was placed intra procedurally with decrease of the pleural pneumothorax too small and resolution of her hypoxia to the mid 90s. Other vital signs were stable throughout the entirety of the procedure. During the time from the received page to my entrance into the recovery area, approximately 5 minutes later, a code white was activated. The patient was tripoding, appearing fatigued and ashen. Hypoxia had resolved on a nonrebreather mask, now in the low 90s. Patient was tachypneic in the mid 20s. Blood pressure and heart rate were within normal limits. On auscultation, the patient is now having both inspiratory and expiratory wheeze; only expiratory wheezes were present on preprocedure examination. The code white team evaluated the patient and she was brought to the emergency room. Through the transfer center, I contacted Dr. Del Toro in the emergency room with a brief summary oftoday's events. The patient will be transferred to the emergency room for ongoing care. IR will continue to follow. * Flako Beltrán DO - 09/03/2022 10:43 AM EST Interm Interventional Radiology Note Procedure: 09/03/22 Date of Procedure: Lung Biopsy Current Date and Time: 09/05/2022 1:44 PM This note is being generated in order to electronically transmit the pathology results to the ordering provider, Jacqui Logan, as well as the patient's primary care provider, Brittany Wynne MD. Flako Beltrán DO, MPH Staff Physician - Diagnostic and Interventional Radiology Pager [phone] ? Location: [facility] The signing pathologist has (i) examined the relevant preparation(s) for the specimen(s) and (ii) rendered or confirmed the diagnosis(es). . ? Surgical Pathology DIAGNOSIS Left upper lung nodule, biopsy: ??- Pulmonary parenchyma with patchy nonspecific ?chronic inflammation ? and scar. ??- ??There is no evidence of malignancy. (see Discussion.) Electronically signed by: ?MD Marcel, George Wang Verified: ??09/04/2022 10:21 ??Pathologist Performed at: ??-[facility] Dept. of Pathology, [place] [address] Director Selection And Administration: Alexi Pardo MD, FCAP, ??CLIA Certificate: [id number] DISCUSSION Clinical correlation is required to determine whether this biopsy is tour sales representative ??of a clinically suspected lesion. THIS RESULT REQUIRES PHYSICIAN/A.P.P. FOLLOW UP SPECIMEN(S) SUBMITTED A - Left Upper Lung Nodule, biopsy (Multiple) CLINICAL INFORMATION 56-year-old with history breast cancer treated with radiation and now a LUL1.1 CM PET ??avid nodule SPECIMEN PROCESSING A - Labeled/Fixative: Left upper lung nodule, formalin. Quantity/Size: Five, ranging from 0.2-0.9 cm Tissue Description: [place]-white needle core biopsies. Sections/Processing: Entirely submitted in 2 cassettes labeled A1-A2. ?? nrl * Ariana Tsai RN - 09/03/2022 10:21 AM EST 1015- Patient to Post, chest tube to low/med suction. Patient appears to have increased work of breathing, O2 sat 84% NC 4L. Placed patient on 6L via NC with no improvement, placed patient on Simple Mask 10L. 1017- Patient endorses nausea. Zofran 4 mg given IV. 1020- Patient in tripod position on simple mask at 10L, O2 sat remains 86%, Dr. Beltrán notified. Patient placed on NRB at 15L. 1027- Rena Schwarz called, Dr. Beltrán at bedside, 95% on NRB, inspiratory and expiratory wheezes noted. 1032- Rean Schwarz at bedside. 1039- Patient transported to ED via stretcher with Rena Schwarz team. * José Dmaon RN - 08/28/2022 4:31 PM EST ANGIO NURSING DATABASE Name: Gena Morales Date of : 1965 AGE: 56 y.o. Address: [address] [address] (home) Mobile: Telephone Information: Referring Provider: Jacqui Logan REASON FOR VISIT: Order Questions Answers Where will study be performed? [facility] Radiology [120] Laterality Left Is [...] or greater in diameter. Planned procedure: Left Upper Lobe Lung Nodule Biopsy Labs to be performed day of procedure: PLT; Coags Sedation: Moderate (Conscious sedation) Prophylactic antibiotic : None Contrast: No contrast Additional medications for procedure: Lidocaine Planned access site: Left Posterior Thorax Position: Prone Consent: Pending Medications to discontinue (and days held): None Case Urgency:: G- Other (non E or F elective cases) Allergies Allergen Reactions ??? Amoxicillin Pertinent PMH: Patient Active Problem List Diagnosis Code ??? Malignant neoplasm of right breast in female, estrogen receptor positive C50.911, Z17.0 Date/Procedure Meds Given/Comments 09/03/2022 Left lung biopsy Versed 2mg IV, Fentanyl 100mcg IV pt developed pneumothorax, chest tubeplaced [address] 5 via stretcher. Onto table prone. All monitors, O2, safety strap in place. Meds per protocol. Laboratory Results: Lab Results Component Value Date CREATININE 0.74 10/26/2021 Lab Results Component Value Date K 4.2 10/26/2021 Lab Results Component Value Date PLATELET 339 10/26/2021 documented in this encounter H&P Notes * Flako Beltrán DO - 09/03/2022 8:56 AM EST INTERVENTIONAL RADIOLOGY FOCUSED H&P: Procedure: Left Lung Nodule Biopsy The patient's history and physical exam have been reviewed and completed. There has been no interval change from that of the pre-operative history and physical exam done within the last 30 days. Physical Exam: Cardiovascular: Regular, Normal Pulmonary: Decreased breath sounds bilaterally. Expiratory wheeze. The planned procedure (and sedation plan if appropriate) , its benefits and risks, and alternativeswere discussed with the patient. The patient consented to the procedure. PRE-SEDATION ASSESSMENT: Sedation Plan: moderate (conscious sedation) ASA: 3: Patient with severe systemic disease Mallampati: III: only the base of the uvula can be seen Confirm NPO status: Yes History of anesthetic complications: No Current medications reviewed: Yes Allergies reviewed: Yes Alcohol/drug use: No Source Note - Flako Beltrán DO - 08/16/2022 12:55 PM EDT Images [...] diagnosis and staging. IR History: None at [facility]. Antiplatelets: None. Anticoagulants: None. Recent Laboratories: ??? [...] estrogen receptor positive 09/29/2021 09/07/21 bx [facility], [place]: ER/KS+/HER2- right breast IDC, low grade Past Surgical History: Procedure Laterality Date ??? APPENDECTOMY ??? CHOLECYSTECTOMY ??? MAMMO US NEEDLE LOCALIZATION RIGHT Right 11/20/2021 Mammo US Needle Localization Right 11/20/2021 Bettina Chong MD [facility] RAD MAMMOGRAPHY ??? PRO BX/REMV, LYMPH NODE, DEEP AXILL Right 11/20/2021 BIOPSY OR EXCISION OF LYMPH NODE(S), OPEN, DEEP AXILLARY NODE(S) (WRVU 6.43) performed by Dylan Kendrick MD at [facility] ??? PRO INTRAOP SENTINEL LYMPH ID W/DYE INJECTION Right 11/20/2021 INTRAOPERATIVE ID (MAPPING) SENTINEL LYMPH NODE,INCLUDES INJECTION (WRVU 2.5) performed by Dylan Kendrick MD at [facility] ??? PRO MASTECTOMY PARTIAL Right 11/20/2021 MASTECTOMY PARTIAL (WRVU 10.13) performed by Dylan Kendrick MD at [facility] ??? TUBAL LIGATION Medications: Current Outpatient Medications on File Prior to Visit Medication Sig Dispense Refill ??? qocdzyjrjwt-mvkkqjznxemj-gmmnscngsf (Trelegy Ellipta) 200-62.5-25 mcg Inhale into the [...] PM EDT Office Visit Radiation Oncology at [address] [phone] Misty Llanos MD [facility] [place] [address] 08/23/2025 1:10 PM EST Appointment Mammography/[place] [phone] Jody Tam ACCOUNT RELATIONSHIP MANAGER [facility] [place] [address] 08/23/2025 2:10 PM EST Office Visit [place] [phone] Jody Tam ACCOUNT RELATIONSHIP MANAGER [facility] [place] [address] documented as of this encounter Procedures Procedure Name Priority Date/Time Associated Diagnosis Comments XR CHEST ONE VIEW STAT 09/03/2022 11: [address] GUIDED BIOPSY LUNG Routine 09/03/2022 10:17 AM EST Solitary pulmonary nodule CT GUIDED DRAIN CHEST TUBE/PLEURAL DRAIN Routine 09/03/2022 10:17 AM EST SURGICAL PATHOLOGY REPORT Routine 09/03/2022 9:09 AM EST SPECIMEN TO PATHOLOGY Routine 09/03/2022 9:09 AM EST documented in this encounter Results * XR Chest One View (09/03/2022 11:01 AM EST) Anatomical Region Laterality Modality Chest N/A Digital Radiogra phy Addenda Addendum by Yu Roblero MD on 09/03/2022 4:20 PM EST --------ADDENDUM #1-------- The Workflow Coordinator spoke with Wang Disla MD ??on 09/03/2022 11:37 AM to relay the results. Thank you for letting us participate in the care of this patient. ??If you are a health care provider and have any questions regarding this report, please contact the number below. ??For patients who have questions please contact the health health care facilities inspector that requested your imaging first. ? Electronically signed by: Yu Roblero MD, [facility] ([phone]), at 09/03/2022 4:15 PM --------ORIGINAL REPORT -------- EXAMINATION: XR CHEST ONE VIEW CLINICAL HISTORY: progressive hypoxia following lung biopsy. ??Pleural catheter in place. TECHNIQUE: 1 view of the chest COMPARISON: CT from 07/09/2022 FINDINGS: there is a moderate left-sided pneumothorax. Pigtail catheter is in the lower lung zone. Additionally there are diffuse increased interstitial markings in the partially atelectatic LEFT lung. No mediastinal shift. Heart and mediastinum are normal IMPRESSION: Moderate LEFT pneumothorax with likely some combination of postbiopsy changes and vascular crowding in the LEFT lung Thank you for letting us participate in the care of this patient. ??If you are a health care provider and have any questions regarding this report, please contact the number below. ??For patients who have questions please contact the health health care facilities inspector that requested your imaging first. ? Electronically signed by: Yu Roblero MD, [facility] ([phone]), at 09/03/2022 11:15 AM Impressions 09/03/2022 11:15 AM EST Moderate LEFT pneumothorax with likely some combination of postbiopsy changes and vascular crowding in the LEFT lung Thank you for letting us participate in the care of this patient. ??If you are a health care provider and have any questions regarding this report, please contact the number below. ??For patients who have questions please contact the health health care facilities inspector that requested your imaging first. ? Narrative 09/03/2022 11:15 AM EST EXAMINATION: XR CHEST ONE VIEW CLINICAL HISTORY: progressive hypoxia following lung biopsy. ??Pleural catheter in place. TECHNIQUE: 1 view of the chest COMPARISON: CT from 07/09/2022 FINDINGS: there is a moderate left-sided pneumothorax. Pigtail catheter is in the lower lung zone. Additionally there are diffuse increased interstitial markings in the partially atelectatic LEFT lung. No mediastinal shift. Heart and mediastinum are normal Procedure Note Yu Roblero MD - 09/03/2022 EXAMINATION: XR CHEST ONE VIEW CLINICAL HISTORY: progressive hypoxia following lung biopsy. Pleuralcatheter in place. TECHNIQUE: 1 view of the chest COMPARISON: CT from 07/09/2022 FINDINGS: there is a moderate left-sided pneumothorax. Pigtail catheter is in thelower lung zone. Additionally there are diffuse increased interstitial markingsin the partially atelectatic LEFT lung. No mediastinal shift. Heart andmediastinum are normal IMPRESSION Moderate LEFT pneumothorax with likely some combination of postbiopsychanges and vascular crowding in the LEFT lung Thank you for letting us participate in the care of this patient. If youare a health care provider and have any questions regarding this report,please contact the number below. For patients who have questions please contactthe health health care facilities inspector that requested your imaging first. Flako Beltrán DO IMG DX ORDERABLES * CT Guided Drain Chest Tube/Pleural Drain (09/03/2022 10:17 AM EST) Anatomical Region Laterality Modality Computed Tomogra phy Impressions 09/03/2022 10:25 AM EST Impression: Technically successful CT-guided core needle biopsy of the left upper lobe nodule and subsequent left pleural catheter placement. Test Lead(s): Resident/Fellow: None. Attending: Dr. Flako Beltrán Procedure/Teaching Attestation: ??I performed the procedure. Moderate Sedation Attestation: I was present during the intra-service time as documented by IR nurse. Thank you for letting us participate in the care of this patient. ??If you are a health care provider and have any questions regarding this report, please contact the number below. ??For patients who have questions please contact the health health care facilities inspector that requested your imaging first. ? Narrative 09/03/2022 10:25 AM EST RADIOLOGY PROCEDURE NOTE Procedure: * ??CT-GUIDED BIOPSY OF LEFT UPPER LOBE LUNG NODULE. * ??CT-GUIDED LEFT PLEURAL CATHETER PLACEMENT.. Indication for Procedure: 56yo with h/o breast cancer treated with radiation and now a CATHERINE 1.1cm PET avid nodule. PET with no LAD involvement and no other sites. Referring for consideration of percutaneous BX. . Interval development of large pneumothorax during procedure. ??Hypoxia during procedure. Consent: After discussing the risks (including infection, hemorrhage, damage to surrounding structures, respiratory depression, and pneumothorax) and benefits, the patient consented to the procedure. Method of Sedation: Due to the painful nature of the procedure, patient received split doses of intravenous fentanyl and midazolam from the IR nurse while pulse, pressure, and oxygen saturation were continuously monitored. 1% lidocaine was used for local analgesia. Technique: Prior to beginning the procedure, a standard time out Moment of Truth was performed. The patient was positioned prone on the CT table. ??An initial planning non-contrast localizing CT scan of the chest was obtained. The site for biopsy was identified and marked on the skin with the assistance of the CT laser lights. The skin was prepped and draped in the usual sterile fashion. Local anesthesia provided with 1% lidocaine. A 19 ga introducer needle was directed to the target lesion with the assistance of CT fluoroscopy. Coaxially, 4 20-gauge 2 cm core biopsies were taken. Through the introducer needle, the Biosentry pleural plug was deployed. ??The needle was removed. Petroleum gauze and sterile gauze dressing was applied. A post-procedure noncontrast CT scan was obtained. At this point, the patient developed significant hypoxia and shortness of breath. ??Repeat noncontrast CT of the chest was performed showed an enlarging large left pneumothorax. ??The overlying skin was cleaned and prepped in typical sterile fashion. ??Maximum sterile barrier technique was used throughout. ??Under CT guidance, an 18-gauge needle was advanced into the left pleural space. ??A guidewire was advanced, confirmed with CT images. ??The tract was dilated and a 10.2-Montene[place]in drainage catheter was advanced into the left pleural space. ??The drainage catheter was connected to -40 continuous wall suction. ??Repeat CT images were obtained. ??The catheter was sutured in place with 2-0 Prolene. ??A sterile dressing was applied. Medications: Please see EMR Contrast: None EBL: <5 cc Complications: No immediate Specimens: 4 20-gauge 2 cm core biopsy samples of the left upper lobe nodule. Findings: * ??Pre-procedure planning CT exam of the chest showed left upper lobe nodule, as on prior CT. * ??Intra-procedural CT showed the biopsy needle in the target lesion. * ??Post-biopsy CT showed perilesional hemorrhage within the left upper lobe. There was a small to moderate pneumothorax with subsequently enlarged. * ??Final CT images demonstrated a pleural catheter within its expected location within the pleural space with small residual apical pneumothorax. Procedure Note Flako Beltrán, DO - 09/03/2022 RADIOLOGY PROCEDURE NOTE Procedure: * CT-GUIDED BIOPSY OF LEFT UPPER LOBE LUNG NODULE. * CT-GUIDED LEFT PLEURAL CATHETER PLACEMENT.. Indication for Procedure: 56yo with h/o breast cancer treated withradiation and now a CATHERINE 1.1cm PET avid nodule. PET with no LAD involvement and no othersites. Referring for consideration of percutaneous BX. . Interval development oflarge pneumothorax during procedure. Hypoxia during procedure. Consent: After discussing the risks (including infection, hemorrhage,damage to surrounding structures, respiratory depression, and pneumothorax) andbenefits, the patient consented to the procedure. Method of Sedation: Due to the painful nature of the procedure, patientreceived split doses of intravenous fentanyl and midazolam from the IR nurse whilepulse, pressure, and oxygen saturation were continuously monitored. 1% lidocainewas used for local analgesia. Technique: Prior to beginning the procedure, a standard time out Moment of Truthwas performed. The patient was positioned prone on the CT table. An initial planning non-contrast localizing CT scan of the chest was obtained. Thesite for biopsy was identified and marked on the skin with the assistance of the CTlaser lights. The skin was prepped and draped in the usual sterile fashion.Local anesthesia provided with 1% lidocaine. A 19 ga introducer needle wasdirected to the target lesion with the assistance of CT fluoroscopy. Coaxially, 420-gauge 2 cm core biopsies were taken. Through the introducer needle, theBiosentry pleural plug was deployed. The needle was removed. Petroleum gauze andsterile gauze dressing was applied. A post-procedure noncontrast CT scan wasobtained. At this point, the patient developed significant hypoxia and shortnessof breath. Repeat noncontrast CT of the chest was performed showed anenlarging large left pneumothorax. The overlying skin was cleaned and prepped intypical sterile fashion. Maximum sterile barrier technique was used throughout.Under CT guidance, an 18-gauge needle was advanced into the left pleural space.A guidewire was advanced, confirmed with CT images. The tract was dilatedand a 10.2-[place] drainage catheter was advanced into the left pleural space.The drainage catheter was connected to -40 continuous wall suction. RepeatCT images were obtained. The catheter was sutured in place with 2-0 Prolene.A sterile dressing was applied. Medications: Please see EMR Contrast: None EBL: <5 cc Complications: No immediate Specimens: 4 20-gauge 2 cm core biopsy samples of the left upper lobenodule. Findings: * Pre-procedure planning CT exam of the chest showed left upper lobenodule, as on prior CT. * Intra-procedural CT showed the biopsy needle in the target lesion. * Post-biopsy CT showed perilesional hemorrhage within the left upperlobe. There was a small to moderate pneumothorax with subsequently enlarged. * Final CT images demonstrated a pleural catheter within its expectedlocation within the pleural space with small residual apical pneumothorax. IMPRESSION Impression: Technically successful CT-guided core needle biopsy of theleft upper lobe nodule and subsequent left pleural catheter placement. Test Lead(s): Resident/Fellow: None. Attending: Dr. Flako Beltrán Procedure/Teaching Attestation: I performed the procedure. Moderate Sedation Attestation: I was present during the intra-service timeas documented by IR nurse. Thank you for letting us participate in the care of this patient. If youare a health care provider and have any questions regarding this report,please contact the number below. For patients who have questions please contactthe health health care facilities inspector that requested your imaging first. Electronically signed by: Flako Beltrán DO, [facility]([phone]), at 09/03/2022 10:25 AM Flako Beltrán DO IM CT ORDERABLES * CT Guided Biopsy Lung (09/03/2022 10:17 AM EST) Anatomical Region Laterality Modality Lung Computed Tomogra phy Impressions 09/03/2022 10:25 AM EST Impression: Technically successful CT-guided core needle biopsy of the left upper lobe nodule and subsequent left pleural catheter placement. Test Lead(s): Resident/Fellow: None. Attending: Dr. Flako Beltrán Procedure/Teaching Attestation: ??I performed the procedure. Moderate Sedation Attestation: I was present during the intra-service time as documented by IR nurse. Thank you for letting us participate in the care of this patient. ??If you are a health care provider and have any questions regarding this report, please contact the number below. ??For patients who have questions please contact the health health care facilities inspector that requested your imaging first. ? Electronically signed by: Flako Beltrán DO, [facility] ([phone]), at 09/03/2022 10:25 AM Narrative 09/03/2022 10:25 AM EST RADIOLOGY PROCEDURE NOTE Procedure: * ??CT-GUIDED BIOPSY OF LEFT UPPER LOBE LUNG NODULE. * ??CT-GUIDED LEFT PLEURAL CATHETER PLACEMENT.. Indication for Procedure: 56yo with h/o breast cancer treated with radiation and now a CATHERINE 1.1cm PET avid nodule. PET with no LAD involvement and no other sites. Referring for consideration of percutaneous BX. . Interval development of large pneumothorax during procedure. ??Hypoxia during procedure. Consent: After discussing the risks (including infection, hemorrhage, damage to surrounding structures, respiratory depression, and pneumothorax) and benefits, the patient consented to the procedure. Method of Sedation: Due to the painful nature of the procedure, patient received split doses of intravenous fentanyl and midazolam from the IR nurse while pulse, pressure, and oxygen saturation were continuously monitored. 1% lidocaine was used for local analgesia. Technique: Prior to beginning the procedure, a standard time out Moment of Truth was performed. The patient was positioned prone on the CT table. ??An initial planning non-contrast localizing CT scan of the chest was obtained. The site for biopsy was identified and marked on the skin with the assistance of the CT laser lights. The skin was prepped and draped in the usual sterile fashion. Local anesthesia provided with 1% lidocaine. A 19 ga introducer needle was directed to the target lesion with the assistance of CT fluoroscopy. Coaxially, 4 20-gauge 2 cm core biopsies were taken. Through the introducer needle, the BiosKvantum[employer] pleural plug was deployed. ??The needle was removed. Petroleum gauze and sterile gauze dressing was applied. A post-procedure noncontrast CT scan was obtained. At this point, the patient developed significant hypoxia and shortness of breath. ??Repeat noncontrast CT of the chest was performed showed an enlarging large left pneumothorax. ??The overlying skin was cleaned and prepped in typical sterile fashion. ??Maximum sterile barrier technique was used throughout. ??Under CT guidance, an 18-gauge needle was advanced into the left pleural space. ??A guidewire was advanced, confirmed with CT images. ??The tract was dilated and a 10.2-Montenegrin drainage catheter was advanced into the left pleural space. ??The drainage catheter was connected to -40 continuous wall suction. ??Repeat CT images were obtained. ??The catheter was sutured in place with 2-0 Prolene. ??A sterile dressing was applied. Medications: Please see EMR Contrast: None EBL: <5 cc Complications: No immediate Specimens: 4 20-gauge 2 cm core biopsy samples of the left upper lobe nodule. Findings: * ??Pre-procedure planning CT exam of the chest showed left upper lobe nodule, as on prior CT. * ??Intra-procedural CT showed the biopsy needle in the target lesion. * ??Post-biopsy CT showed perilesional hemorrhage within the left upper lobe. There was a small to moderate pneumothorax with subsequently enlarged. * ??Final CT images demonstrated a pleural catheter within its expected location within the pleural space with small residual apical pneumothorax. Procedure Note Flako Beltrán, DO - 09/03/2022 RADIOLOGY PROCEDURE NOTE Procedure: * CT-GUIDED BIOPSY OF LEFT UPPER LOBE LUNG NODULE. * CT-GUIDED LEFT PLEURAL CATHETER PLACEMENT.. Indication for Procedure: 56yo with h/o breast cancer treated withradiation and now a CATHERINE 1.1cm PET avid nodule. PET with no LAD involvement and no othersites. Referring for consideration of percutaneous BX. . Interval development oflarge pneumothorax during procedure. Hypoxia during procedure. Consent: After discussing the risks (including infection, hemorrhage,damage to surrounding structures, respiratory depression, and pneumothorax) andbenefits, the patient consented to the procedure. Method of Sedation: Due to the painful nature of the procedure, patientreceived split doses of intravenous fentanyl and midazolam from the IR nurse whilepulse, pressure, and oxygen saturation were continuously monitored. 1% lidocainewas used for local analgesia. Technique: Prior to beginning the procedure, a standard time out Moment of Truthwas performed. The patient was positioned prone on the CT table. An initial planning non-contrast localizing CT scan of the chest was obtained. Thesite for biopsy was identified and marked on the skin with the assistance of the CTlaser lights. The skin was prepped and draped in the usual sterile fashion.Local anesthesia provided with 1% lidocaine. A 19 ga introducer needle wasdirected to the target lesion with the assistance of CT fluoroscopy. Coaxially, 420-gauge 2 cm core biopsies were taken. Through the introducer needle, theBiosentry pleural plug was deployed. The needle was removed. Petroleum gauze andsterile gauze dressing was applied. A post-procedure noncontrast CT scan wasobtained. At this point, the patient developed significant hypoxia and shortnessof breath. Repeat noncontrast CT of the chest was performed showed anenlarging large left pneumothorax. The overlying skin was cleaned and prepped intypical sterile fashion. Maximum sterile barrier technique was used throughout.Under CT guidance, an 18-gauge needle was advanced into the left pleural space.A guidewire was advanced, confirmed with CT images. The tract was dilatedand a 10.2-Montenegrin drainage catheter was advanced into the left pleural space.The drainage catheter was connected to -40 continuous wall suction. RepeatCT images were obtained. The catheter was sutured in place with 2-0 Prolene.A sterile dressing was applied. Medications: Please see EMR Contrast: None EBL: <5 cc Complications: No immediate Specimens: 4 20-gauge 2 cm core biopsy samples of the left upper lobenodule. Findings: * Pre-procedure planning CT exam of the chest showed left upper lobenodule, as on prior CT. * Intra-procedural CT showed the biopsy needle in the target lesion. * Post-biopsy CT showed perilesional hemorrhage within the left upperlobe. There was a small to moderate pneumothorax with subsequently enlarged. * Final CT images demonstrated a pleural catheter within its expectedlocation within the pleural space with small residual apical pneumothorax. IMPRESSION Impression: Technically successful CT-guided core needle biopsy of theleft upper lobe nodule and subsequent left pleural catheter placement. Test Lead(s): Resident/Fellow: None. Attending: Dr. Flako Beltrán Procedure/Teaching Attestation: I performed the procedure. Moderate Sedation Attestation: I was present during the intra-service timeas documented by IR nurse. Thank you for letting us participate in the care of this patient. If youare a health care provider and have any questions regarding this report,please contact the number below. For patients who have questions please contactthe health health care facilities inspector that requested your imaging first. Electronically signed by: Flako Beltrán DO, [facility]([phone]), at 09/03/2022 10:25 AM Jacqui Logan MD IMG CT ORDERABLES * (ABNORMAL) Surgical Pathology Report (09/03/2022 9:09 AM EST) Final Diagnosis [id number] ? Location: [facility] The signing pathologist has (i) examined the relevant preparation(s) for the specimen(s) and (ii) rendered or confirmed the diagnosis(es). . ?Surgical Pathology DIAGNOSIS Left upper lung nodule, biopsy: - Pulmonary parenchyma with patchy nonspecific ?chronic inflammation ?and scar. - ??There is no evidence of malignancy. (see Discussion.) Electronically signed by: ?MD Marcel, George Wang Verified: ??09/04/2022 10:21 ??Pathologist Performed at: ??-[facility] Dept. of Pathology, [place] [address] Director Selection And Administration: Alexi Pardo MD, FCAP, ??CLIA Certificate: [id number] DISCUSSION Clinical correlation is required to determine whether this biopsy is tour sales representative of a clinically suspected lesion. THIS RESULT REQUIRES PHYSICIAN/A.P.P. FOLLOW UP SPECIMEN(S) SUBMITTED A - Left Upper Lung Nodule, biopsy (Multiple) CLINICAL INFORMATION 56-year-old with history breast cancer treated with radiation and now a LUL1.1 CM PET avid nodule SPECIMEN PROCESSING A - Labeled/Fixative: Left upper lung nodule, formalin. Quantity/Size: Five, ranging from 0.2-0.9 cm Tissue Description: [place]-white needle core biopsies. Sections/Processi ng: Entirely submitted in 2 cassettes labeled A1-A2. ??nrl(A) 09/04/2022 10:21 AM EST [facility] LUNG STRUCTURE / Unknown 09/03/2022 9:09 AM EST 09/03/2022 9:09 AM EST Flako Beltrán DO PATHOLOGY/CYTOLOGY O ELBA [facility] [place] [address] * Specimen to Pathology (09/03/2022 9:09 AM EST) AP Specimen 09/03/2022 9:09 AM EST 09/03/2022 9:09 AM EST Narrative [facility] - 09/03/2022 9:09 AM EST Specimen requisition ordered. ??Separate Pathology report to follow Jacqui Logan MD PATHOLOGY/CYTOLOGY O RDSARA [facility] [place] [address] * Prothrombin Time (09/03/2022 8:19 AM EST) Prothrombin Time 11.3 9.4 - 12.5 sec [facility] International Normalization Ratio 1.0 [facility] Comment: An INR <2.0 [...] MD HEMATOLOGY ORDERABLE S Performing Organization Address City/State/[facility] Co de Phone Number [facility] [place] [address] * Platelet count (09/03/2022 8:19 AM EST) Platelet 281 145 - 357 x10(3)/mc L [facility] Immature Plt % 1.9 0.0 - 7.4 % [facility] Comment: Limitation of the Immature Platelet Fraction (IPF)-May be less reliable when the platelet count is less than 85d309/uL due to statistical imprecision. The IPF value [...] in a decreased state of production. References: [employer] The Clinical Value of the Immature Platelet Fraction (IPF) in Cell Recovery Document Number [id number] 03/2011 [employer] The Role of the Immature Platelet Fraction (IPF) in the Differential Diagnosis of Thrombocytopenia, Document [id number] V003/01/14 P05 Blood 09/03/2022 8:19 AM EST 09/03/2022 8:25 AM EST Narrative Resulting Agency Comment Spec In Lab Jacqui Logan MD HEMATOLOGY ORDERABLE S [facility] [place] [address] documented in this encounter Visit Diagnoses Diagnosis Pre-op testing Preoperative examination, unspecified Lung nodule Solitary pulmonary nodule Solitary pulmonary nodule documented in this encounter Administered Medications Inactive Administered Medications - up to 3 most recent administrations Medication Order MAR Action Action Date Dose Rate Site fentaNYL (pf) (50 mcg/mL) multi-dose injection 25-50 mcg 25-50 mcg, Intravenous, EVERY 3 MIN PRN, Starting on Sat09/03/22 at 0854, Until Sat09/04/22 at 0236, Pain, per unit protocol, For use in [...] mcg/dose, 250 mcg/hour, Angio/IR (Intra-Procedure), Routine Given 09/03/2022 10:01 AM EST 25 mcg Given 09/03/2022 9:51 AM EST 25 mcg Given 09/03/2022 9:31 AM EST 25 mcg lidocaine (Xylocaine) 1% (10 mg/mL) injection 10 mg 10 mg, Subcutaneous, ONCE, 1 dose, On Sat09/03/22 at 0915, For use in Interventional Radiology (IR) only for procedure with direct provider supervision and verbal order., Angio/IR (Intra-Procedure), Routine Given 09/03/2022 9:35 AM EST 10 mg midazolam (Versed) (1 mg/mL) injection 0.5-1 mg 0.5-1 mg, Intravenous, EVERY 3 MIN PRN, Starting on Sat09/03/22 at 0854, Until Sat09/04/22 at 0236, Sedation, For use in Interventional Radiology (IR) only for procedural sedation with direct provider supervision and verbal order. - Start dose: 1 mg (Reduce dose to 0.5 mg if history of sedation sensitivity). - Titration dose: 0.5 mg - 1 mg (based on patient response) every 3 minutes PRN to obtain RASS score of -3. Maximum dose: 1 mg/dose, 5 mg/hour., Angio/IR (Intra-Procedure), Routine Given 09/03/2022 10:01 AM EST 0.5 mg Given 09/03/2022 9:52 AM EST 0.5 mg Given 09/03/2022 9:31 AM EST 0.5 mg midazolam (Versed) 1 mg/mL injection 1 dose, Starting on Sat09/03/22 at 0907, Until Sat09/03/22 at 0924, José Damon.: cabinet override ondansetron (pf) (Zofran) (2 mg/mL) injection 4 mg 4 mg, Intravenous, EVERY 8 HOURS PRN, Starting on Sat09/03/22 at 1017, Until Sat09/04/22 at 0236, Nausea Given 09/03/2022 10:17 AM EST 4 mg ondansetron (Zofran) 4 mg/2 mL injection 1 dose, Starting on Sat09/03/22 at 1014, Until Sat09/03/22 at 1017, José Damon.: cabinet override documented in this encounter Care Teams Lacquer Coater Relationship Specialty Start Date End Date Brittany Wynne MD [address] [place] [address] [place] [address] PCP - General Family Medicine 10/23/21 documented as of this encounter
--- OUTSIDE RECORDS SUMMARY | 2024-10-26 16:32 | XMS_ITS | Encounter Summary ---
Author Organization [facility] Address [facility] [place] [address] Care Team Providers Care Retirement Village Manager Name Role Phone Brittany Wynne MD Primary Care Provider + Encounter Details Date Type Department Care Team (Late st Contact Info) Description 07/16/2022 Notes Only Radiation Oncology at [address] [phone] Misty Llanos MD [facility] [place] [address] Social History Tobacco Use Types Packs/Day Years [...] as of this encounter Progress Notes * Misty Llanos MD - 07/16/2022 1:07 PM EDT I spoke w/her armature coil winder, Dr. Logan today. She was concerned about infection due to h/o multiple sick people in Gena's house recently, rx'd antibiotic & advised wait a week on PET/CT. Shethinks PET/CT scheduled to be done this week @ [facility]. She will recommend EBUS w/bx of lymph nodes if lymph nodes are FDG avid & if no FDG avid lymph nodes but nodule is FDG avid, will recommend eval for bx of nodule by Thoracic Surgery or IR. documented in this encounter Plan of Treatment Upcoming Encounters Date Type Department Care Team (Late st Contact Info) Description 01/11/2025 1:00 PM EDT Office Visit Radiation Oncology at [address] [phone] Mitsy Llanos MD [facility] [place] [address] 08/23/2025 1:10 PM EST Appointment Mammography/[place] [address] Jody Tam, [facility] [place] [address] 08/23/2025 2:10 PM EST Office Visit [place] [address] Jody Tam, [facility] [place] [address] documented as of this encounter Visit Diagnoses Not on filedocumented in this encounter Care Teams Retirement Village Manager Relationship Specialty Start Date End Date Brittany Wynne MD [address] [place] [address] [place] [address] PCP - General Family Medicine 10/23/21 documented as of this encounter
--- OUTSIDE RECORDS SUMMARY | 2024-10-26 16:32 | XMS_ITS | Encounter Summary ---
Author Organization [facility] Address [facility] [place] [address] Care Team Providers Care Chief Controller Station Name Role Phone Brittany Wynne MD Primary Care Provider + Encounter Details Date Type Department Care Team (Late st Contact Info) Description 08/11/2022 12:25 PM EDT Ancillary Procedure Radiology Library at [facility] [place] [address] Brittany Wynne MD [address] [place] [address] [place], [place] [id number] Social History Tobacco Use Types Packs/Day Years [...] place to sleep or slept in a care home (including now)? No 11/06/2021 Sex and [...] PM EDT Office Visit Radiation Oncology at [address] [phone] Misty Llanos MD [facility] [place] [address] 08/23/2025 1:10 PM EST Appointment Mammography/[place] [address] Jody Tam APRN [facility] [place] [address] 08/23/2025 2:10 PM EST Office [place] [phone] Jody Tam APRN [facility] [place] [address] documented as of this encounter Procedures Procedure Name Priority Date/Time Associated Diagnosis Comments FILM LIBRARY STORAGE ONLY NM PET/CT Routine 08/11/2022 12:24 PM EDT documented in this encounter Results * Film Library- Storage Only NM Pet / CT (08/11/2022 12:24 PM EDT) Narrative RAD - 08/11/2022 12:24 PM EDT This exam is auto-finalizing. It's purpose is for storage only. Brittany Wynne MD IMG FILM LIBRARY ORDERABLES [place], [place] documented in this encounter Visit Diagnoses Not on filedocumented in this encounter Care Teams Chief Controller Station Relationship Specialty Start Date End Date Brittany Wynne MD [address] [place] [address] [place] [address] PCP - General Family Medicine 10/23/21 documented as of this encounter
--- OUTSIDE RECORDS SUMMARY | 2024-10-26 16:32 | XMS_ITS | Encounter Summary ---
Author Organization [facility] Address [facility] [place] [address] Care Team Providers Care General Cargo Clerk Name Role Phone Brittany Wynne MD Primary Care Provider + Reason for Visit * Reason Comments Follow-up Encounter Details Date Type Department Care Team (Late st Contact Info) Description 08/13/2022 3:30 PM EDT TH Visit (TeleHealth) Radiation Oncology at [address] [phone] Misty Llanos MD [facility] [place] [address] Lung nodule Social History Tobacco Use Types [...] Progress Notes * Misty Llanos MD - 08/13/2022 3:30 PM EDT Phone followup during Covid-19 pandemic. I spoke w/Gena today about 08/11/22 PET/CT result & informed her that Dr. Logan was considering referral for a biopsy, dependent on PET/CT result. I advised Gena to call Dr. Logan's office for recommendation. Decision Making/Plan: Gena will call Dr. Logan's office regarding next step. Patient verbally consents to this telephone visit and understands that this visit may be billed, similar to a clinic office visit. I provided care to the patient today via telephone call. The total time associated with this visit was 5 minutes. documented in this encounter Plan of Treatment Upcoming Encounters Date Type Department Care Team (Late st Contact Info) Description 01/11/2025 1:00 PM EDT Office Visit Radiation Oncology at [address] [phone] Misty Llanos MD [facility] [place] [address] 08/23/2025 1:10 PM EST Appointment Mammography/[place] [phone] Jody Tam APRN [facility] [place] [address] 08/23/2025 2:10 PM EST Office [place] [phone] Jody Tam APRN [facility] [place] [address] documented as of this encounter Visit Diagnoses Diagnosis Lung nodule Solitary pulmonary nodule documented in this encounter Care Teams General Cargo Clerk Relationship Specialty Start Date End Date Brittany Wynne MD [address] [place] [address] [place] [address] PCP - General Family Medicine 10/23/21 documented as of this encounter
--- OUTSIDE RECORDS SUMMARY | 2024-10-26 16:32 | XMS_ITS | Encounter Summary ---
Author Organization [facility] Address [facility] [place] [address] Care Team Providers Care Safety Person Name Role Phone Brittany Wynne MD Primary Care Provider + Encounter Details Date Type Department Care Team (Latest Contact Info) Description 09/03/2022 Travel Social History Tobacco Use Types Packs/Day [...] place to sleep or slept in a usp (including now)? No 11/06/2021 Sex and Gender Information Value Date Recorded Sex Assigned at Female 10/16/2021 7:15 PM EST Gender Identity Female 10/16/2021 7:15 PM EST Sexual Orientation Straight 10/16/2021 7: 15 PM EST documented as of this encounter Plan of Treatment Upcoming Encounters Date Type Department Care Team (Late st Contact Info) Description 01/11/2025 1:00 PM EDT Office Visit Radiation Oncology at [address] [phone] [facility] [place] [address] 08/23/2025 1:10 PM EST Appointment Mammography/[place] [phone] Jody Tam [facility] [address] 08/23/2025 2:10 PM EST Office [place] [phone] Jody Tam [facility] [place] [address] documented as of this encounter Visit Diagnoses Not on filedocumented in this encounter Care Teams Safety Person Relationship Specialty Start Date End Date Brittany Wynne MD [address] [place] [address] [place] [address] PCP - General Family Medicine 10/23/21 documented as of this encounter
--- OUTSIDE RECORDS SUMMARY | 2024-10-26 16:32 | XMS_ITS | Encounter Summary ---
Author Organization [facility] Address [facility] [place] [address] Care Team Providers Care Driver Courier Name Role Phone Brittany Wynne MD Primary Care Provider + Encounter Details Date Type Department Care Team (Late st Contact Info) Description 10/29/2022 Ancillary Procedure Radiology Library at [facility] [place] [phone] Brittany Wynne MD [address] [place] [address] [address] [place], [place] [phone] Social History Tobacco Use Types Packs/Day Years [...] PM EDT Office Visit Radiation Oncology at [address] [phone] Misty Llanos MD [facility] [place] [address] 08/23/2025 1:10 PM EST Appointment Mammography[place] [phone] [address]ody Tam [address]N [facility] [place] [address] 08/23/2025 2:10 PM EST Office [place] [phone] Jody Tam APRN [facility] [place] [address] documented as of this encounter Procedures Procedure Name Priority Date/Time Associated Diagnosis Comments FILM LIBRARY STORAGE ONLY CT CHEST Routine 10/29/2022 12:00 AM EST documented in this encounter Results * Film Library- Storage Only CT Chest (10/29/2022 12:00 AM EST) Narrative [facility] - 09/17/2023 11:16 AM EST This exam is auto-finalizing. It's purpose is for storage only. Brittany Wynne MD IMG FILM LIBRARY ORDERABLES Performing Organization Address City/State/[facility] Co de Phone Number [place], [place] documented in this encounter Visit Diagnoses Not on filedocumented in this encounter Care Teams Driver Courier Relationship Specialty Start Date End Date Brittany Wynne MD [address] [place] [address] [place] [address] PCP - General Family Medicine 10/23/21 documented as of this encounter
--- OUTSIDE RECORDS SUMMARY | 2024-10-26 16:32 | XMS_ITS | Encounter Summary ---
Author Organization [facility] Address [facility] [place] [address] Care Team Providers Care Rheumatologist Name Role Phone Brittany Wynne MD Primary Care Provider + Reason for Visit * Reason Comments Follow-up Encounter Details Date Type Department Care Team (Late st Contact Info) Description 09/17/2022 1:30 PM EST Office Visit Radiation Oncology at [address] [phone] Misty Llanos MD [facility] [place] [address] S/P radiotherapy Social History Tobacco Use Types [...] Sign Reading Time Taken Comments Blood Pressure 117/81 09/17/2022 1:38 PM EST Pulse 90 09/17/2022 1:38 PM EST Temperature 36.7 ??C (98.1 ??F) 09/17/2022 1 :38 PM EST Respiratory Rate - - Oxygen Saturation 98% 09/17/2022 1:3 8 PM EST oxygen 2 liters/minute via nc Inhaled Oxygen Concentration - - Weight 68.1 kg (150 lb 3.2 oz) 09/17/2022 1:38 PM EST Height - - Body Mass Index 30.34 09/05/2022 1:00 PM EST documented in this encounter Patient Instructions * Patient Instructions* Misty Llanos MD - 09/17/2022 1:30 PM EST Your exam is without worrisome finding. Someone will contact you to schedule followup in December. documented in this encounter Progress Notes * Misty Llanos MD - 09/17/2022 1:30 PM EST Images from the original note were not included. CC: Sched'd followup s/p xrt completion. HPI: Gena is a 56 y/o f who completed xrt to R breast 6.5 mos ago (02/19/22) for breast ca, R, IDC, gr 1, ER+SD+, Her2-, s/p lumpectomy & SNB, pT1b pN0. [...] lung bx, w/pneumothorax & subq emphysema. Subjective: Breathing improving, although fluctuates. Appt w/Dr. Logan today. Past Medical History: Diagnosis Date ??? Asthma ??? COPD (chronic obstructive pulmonary disease) ??? Malignant neoplasm of right breast in female, estrogen receptor positive 09/29/2021 09/07/21 bx [place]: ER/SD+/HER2- right breast IDC, low grade No lupus/scleroderma. Past Surgical History: Procedure Laterality Date ??? APPENDECTOMY ??? CHOLECYSTECTOMY ??? CT GUIDED BIOPSY LUNG 09/03/2022 CT Guided Biopsy Lung 09/03/2022 Flako Beltrán, DO [facility] RAD CT SCAN ??? CT GUIDED DRAIN CHEST TUBE/PLEURAL DRAIN 09/03/2022 CT Guided Drain Chest Tube/Pleural Drain 09/03/2022 Flako Beltrán, DO [facility] RAD CT SCAN ??? MAMMO US NEEDLE LOCALIZATION RIGHT Right 11/20/2021 Mammo US Needle Localization Right 11/20/2021 Bettina Chong MD [facility] RAD MAMMOGRAPHY ??? PRO BX/REMV, LYMPH NODE, DEEP AXILL Right 11/20/2021 BIOPSY OR EXCISION OF LYMPH NODE(S), OPEN, DEEP AXILLARY NODE(S) (WRVU 6.43) performed by Dylan Kendrick MD at [facility] ??? PRO INTRAOP SENTINEL LYMPH ID W/DYE INJECTION Right 11/20/2021 INTRAOPERATIVE ID (MAPPING) SENTINEL LYMPH NODE,INCLUDES INJECTION (WRVU 2.5) performed by Dylan Kendrick MD at [facility] ??? PRO MASTECTOMY PARTIAL Right 11/20/2021 MASTECTOMY PARTIAL (WRVU 10.13) performed by Dylan Kendrick MD at [facility] ??? TUBAL LIGATION Your Medications Accurate as of September 17, 2022 1:50 PM. If you have any questions, ask your nurse or doctor. Continued medications, unchanged Dose Details acetaminophen 500 mg Tab Commonly known as: Tylenol Take 1,000 mg by mouth every 6 hours as needed for Pain. 1,000 mg Refills: 0 albuteroL (2.5 mg/3 mL) (0.083 %) Nebu Commonly known as: Proventil, Ventolin Take 3 mLs by nebulization every 4 hours as needed for Wheezing or Shortness of Breath. 3 mL Refills: 0 Breztri Aerosphere 160-9-4.8 mcg/actuation Hfaa Inhale 2 puffs into the lungs 2 times daily. Generic drug: lntghkrhbr-dbkfxdam-hsehydnjrh 2 puff Refills: 0 guaiFENesin ER 600 [...] by mouth nightly. 10 mg Refills: 0 Physical Exam Constitutional: General: She is not in acute distress. Comments: BP 117/81 Pulse 90 Temp 36.7 ??C (98.1 ??F) (Temporal) Wt 68.1 kg (150 lb 3.2 oz) SpO2 98% Comment: oxygen 2 liters/minute via nc BMI 30.34 kg/m?? HENT: Head: Normocephalic. Eyes: General: No scleral icterus. Right eye: No discharge. Left eye: No discharge. Extraocular Movements: Extraocular movements intact. Conjunctiva/sclera: Conjunctivae normal. Pulmonary: Effort: Pulmonary effort is normal. No respiratory distress. Breath sounds: No stridor. Comments: Receiving O2 via n/c. Chest: Breasts: Right: No inverted nipple, mass, nipple discharge, skin change or tenderness. Left: No inverted nipple, mass, nipple discharge, skin change or tenderness. [...] Thought content normal. Judgment: Judgment normal. A: Healing well s/p xrt. P: Rtc December. 20 mins encounter documented in this encounter Plan of Treatment Upcoming Encounters Date Type Department Care Team (Late st Contact Info) Description 01/11/2025 1:00 PM EDT Office Visit Radiation Oncology at [address] [phone] Misty Llanos MD [facility] [place] [address] 08/23/2025 1:10 PM EST Appointment Mammography/[place] [phone] Jody Tam [facility] [place] [address] 08/23/2025 2:10 PM EST Office Visit [place] [phone] Jody Tam [facility] [place] [address] documented as of this encounter Visit Diagnoses Diagnosis S/P radiotherapy Convalescence following radiotherapy documented in this encounter Care Teams Rheumatologist Relationship Specialty Start Date End Date Brittany Wynne MD [address] [place] [address] [place] [address] PCP - General Family Medicine 10/23/21 documented as of this encounter
--- OUTSIDE RECORDS SUMMARY | 2024-10-26 16:33 | XMS_ITS | Encounter Summary ---
Author Organization [facility] Address [facility] [place] [address] Care Team Providers Care Casino Cashier Manager Name Role Phone Brittany Wynne MD Primary Care Provider + Reason for Visit * Reason Comments Follow-up Encounter Details Date Type Department Care Team (Late st Contact Info) Description 03/20/2022 3:00 PM EDT Office Visit Radiation Oncology at [address] [phone] Jacob Llanos MD [facility] [place] [address] Lung nodule; S/P radiotherapy Social History Tobacco Use Types [...] Sign Reading Time Taken Comments Blood Pressure 116/87 03/20/2022 3:19 PM EDT Pulse 87 03/20/2022 3:19 PM EDT Temperature - - Respiratory Rate 18 03/20/2022 3:19 PM EDT Oxygen Saturation 98% 03/20/2022 3:19 PM EDT Inhaled Oxygen Concentration - - Weight - - Height - - Body Mass Index - - documented in this encounter Patient Instructions * Patient Instructions* Jacob Llanos MD - 03/20/2022 3:34 PM EDT Your exam shows that you are healing nicely from radiotherapy. Mepilex-lite can be used to protect irradiated skin from clothing. You may use a straight/regular razor on your right underarm. You may expose the irradiated area to sun, but it is recommended that you apply sunscreen with an SPF of @ least #45 on the irradiated area prior to exposing it to sun. You may swim in chlorinated water. You may expose irradiated area to hot tub water. Someone will call you to schedule CT chest in early June for followup right lung nodule. Someone will contact you to schedule folllowup in 6 months. documented in this encounter Progress Notes * Jacob Llanos MD - 03/20/2022 3:00 PM EDT Images from the original note were not included. CC: Sched'd followup s/p xrt completion. HPI: Gena is a 56 y/o f who completed xrt to R breast 29 days ago (02/19/22) for breast ca, R, IDC, gr 1, ER+CT+, Her2-, s/p lumpectomy & SNB, pT1b pN0. Subjective: Skin w/in irrad'd area healing well. Bra/tight clothing irritating to lower R breast/fold beneath R breast. She is communicating w/Dr. Goldman about hormonal tx & is declining starting hormonal tx for now. She was recently seen by Dr. Nina (Pulmonology) @ [facility] & was to get her lung issues (asthma, COPD) sorted out prior to starting hormonal tx. Past Medical History: Diagnosis Date ??? Asthma ??? COPD (chronic obstructive pulmonary disease) ??? Malignant neoplasm of right breast in female, estrogen receptor positive 09/29/2021 09/07/21 bx [place], [place]: ER/CT+/HER2- right breast IDC, low grade No lupus/scleroderma. Past Surgical History: Procedure Laterality Date ??? APPENDECTOMY ??? CHOLECYSTECTOMY ??? MAMMO US NEEDLE LOCALIZATION RIGHT Right 11/20/2021 Mammo US Needle Localization Right 11/20/2021 Bettina Chong MD [facility] RAD MAMMOGRAPHY ??? PRO BX/REMV, LYMPH NODE, DEEP AXILL Right 11/20/2021 BIOPSY OR EXCISION OF LYMPH NODE(S), OPEN, DEEP AXILLARY NODE(S) (WRVU 6.43) performed by Dylan Kendrick MD at [facility] ??? PRO INTRAOP SENTINEL LYMPH ID W/DYE INJECTION Right 11/20/2021 INTRAOPERATIVE ID (MAPPING) SENTINEL LYMPH NODE,INCLUDES INJECTION (WRVU 2.5) performed by Dylan Kendrick MD at [facility] ??? PRO MASTECTOMY PARTIAL Right 11/20/2021 MASTECTOMY PARTIAL (WRVU 10.13) performed by Dylan Kendrick MD at [facility] ??? TUBAL LIGATION Your Medications Accurate as of March 20, 2022 5:20 PM. If you have any questions, ask your nurse or doctor. Continued medications with new dosing Dose Details Advair HFA 230-21 mcg/actuation Hfaa Generic drug: fluticasone propion-salmeteroL What changed: Another medication with the same name was removed. Continue taking this medication, and follow the directions you see here. Changed by: JACOB LLANOS MD Refills: 0 Continued medications, unchanged Dose Details acetaminophen 500 mg Tab Commonly known as: Tylenol Take 1,000 mg by mouth every 6 hours as needed for Pain. 1,000 mg Refills: 0 albuteroL 90 mcg/actuation Hfaa Refills: 0 CREAM BASE TOP Apply topically. Remedy Phytoplex Moisturizer. Apply to area of radiation twice a day but no less than 2 hours before a treatment. Refills: 0 guaiFENesin ER 600 mg Ta12 Commonly known as: Mucinex Take 1,200 mg by mouth 2 times daily. 1,200 mg Refills: 0 ibuprofen 200 mg Tab Commonly known as: Advil Take 200 mg by mouth every 6 hours as needed for Pain. 200 mg Refills: 0 ipratropium-albuteroL 0.5 mg-3 mg(2.5 mg base)/3 mL Nebu Commonly known as: Duoneb Refills: 0 loratadine 10 mg Tab Commonly known as: Claritin Take 10 mg by mouth daily. 10 mg Refills: 0 montelukast 10 mg Tab Commonly known as: Singulair Refills: 0 Spiriva with HandiHaler 18 mcg Cpdv Generic drug: tiotropium Refills: 0 Physical Exam Constitutional: General: She is not in acute distress. Comments: BP 116/87 (Patient Position: Sitting) Pulse 87 Resp 18 SpO2 98% HENT: Head: Normocephalic. Eyes: General: No scleral icterus. Right eye: No discharge. Left eye: No discharge. Extraocular Movements: Extraocular movements intact. Conjunctiva/sclera: Conjunctivae normal. Pulmonary: Effort: Pulmonary effort is normal. No respiratory distress. Breath sounds: No stridor. Chest: Breasts: Right: Skin change (mild hyperpigmentation, consistent w/post xrt change) present. No inverted nipple, mass, nipple discharge, tenderness, axillary adenopathy or supraclavicular adenopathy. Left: No inverted nipple, mass, nipple discharge, skin change, tenderness, axillary adenopathy or supraclavicular adenopathy. Abdominal: General: There is no distension. Palpations: [...] Content: Thought content normal. Judgment: Judgment normal. Imagin12/19/21 Dx'ic Rad Interp CTsim: 6 mm indeterminate RLL nodule. 6 mos low radiation dose noncontrast CT ch followup suggested. A: Healing well s/p xrt. P: Care of irrad'd skin discussed. Given mepilex-lite to protect irrad'd area from clothing/bra irritating. Low rad dose noncontrast CT ch Sept ([facility]). Rtc [address] Aroldo epps/aura documented in this encounter Plan of Treatment Upcoming Encounters Date Type Department Care Team (Late st Contact Info) Description 01/11/2025 1:00 PM EDT Office Visit Radiation Oncology at [address] [phone] Jacob Llanos MD [facility] [place] [address] 08/23/2025 1:10 PM EST Appointment Mammography/DXA at [place] [phone] Jody Tam APRN [facility] [place] [address] 08/23/2025 2:10 PM EST Office Visit General Surgery at [place] [phone] Jody Tam APRN [facility] [place] [address] documented as of this encounter Visit Diagnoses Diagnosis Lung nodule Solitary pulmonary nodule S/P radiotherapy Convalescence following radiotherapy documented in this encounter Care Teams Casino Cashier Manager Relationship Specialty Start Date End Date Brittany Wynne MD [address] [place] [address] [place] [address] PCP - General Family Medicine 10/23/21 documented as of this encounter
--- OUTSIDE RECORDS SUMMARY | 2024-10-26 16:33 | XMS_ITS | Encounter Summary ---
Author Organization [facility] Address [facility] [place] [place] [address] Care Team Providers Care Literature Professor Name Role Phone Brittany Wynne MD Primary Care Provider + Reason for Visit * Reason Comments Advice Only Encounter Details Date Type Department Care Team (Late st Contact Info) Description 12/07/2021 11:00 AM EST Office Visit Hematology [place] [address] Marianela Goldman MD [facility] [address] [place] [address] Maddi Price, RN Malignant neoplasm of lower-outer quadrant of right breast of female, estrogen receptor positive; At risk of fracture due to osteoporosis Social History Tobacco Use Types Packs/Day Years Used Date Smoking Tobacco: Every Day Cigarettes Smokeless Tobacco: Never Alcohol Use Standard Drinks/Week [...] Sign Reading Time Taken Comments Blood Pressure 116/77 12/07/2021 10:59 AM EST Pulse 102 12/07/2021 10:59 AM EST Temperature 36.2 ??C (97.2 ??F) 12/07/2021 10:[address] Respiratory Rate 20 12/07/2021 10:59 AM EST Oxygen Saturation 93% 12/07/2021 10:59 AM EST Inhaled Oxygen Concentration - - Weight 64.7 kg (142 lb 9.6 oz) 12/07/2021 10:59 AM EST Height 146.8 cm (4' 9.8) 12/07/2021 10:59 AM ES T Body Mass Index 30.02 12/07/2021 10:59 AM EST documented in this encounter Progress Notes * Marianela Goldman MD - 12/07/2021 11:00 AM EST Subjective Cc: breast cancer New patient consult note Requesting MD: Henry Kendrick Reason for referral: new dx right breast cancer Patient ID: Gena Morales is a 56 y.o. female. 09/07/21 [facility], [place]: ER/MS+/HER2- right breast IDC, low grade, luminal A features Screening mammogram detected No prior call backs or biopsies 1.1 cm suspicious mass in LOQ, bx 09/07/21 at [facility] complicated by rib trauma and pain. Diagnostic images with calcifications at 0600, stable compared to prior MRI without other abnormalities Right lumpectomy IDCA grade 1 8.5 mm + perineural invasion, 0/5 LN + pT1bN0 Stage IA Review of Systems Constitutional: Negative. HENT: Negative. Eyes: Negative. Respiratory: Positive for cough. Current smoker, interested in quitting. Cardiovascular: Negative. Gastrointestinal: Negative. Endocrine: Negative. Occasional hot flashes now, had many for about 5 yrs. Menses age [age] 1st at age 19 Fhx: biologic mother chronically ill, adopted , 1 sister without cancer. Niece had a biopsy that was benign. Genitourinary: Negative. Musculoskeletal: Negative. Skin: Negative. Allergic/Immunologic: Negative. Neurological: Negative. Hematological: Negative. Psychiatric/Behavioral: Negative. 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 HENT: Head: Normocephalic. Right Ear: External ear normal. Left Ear: External ear normal. Nose: Nose normal. Eyes: General: No scleral icterus. Conjunctiva/sclera: Conjunctivae normal. Cardiovascular: Rate and Rhythm: Normal rate. Pulses: Normal pulses. Pulmonary: Effort: Pulmonary effort is normal. Abdominal: General: Abdomen is flat. Musculoskeletal: General: Normal range of motion. Cervical back: Normal range of motion. Skin: General: Skin is warm and dry. Neurological: General: No focal deficit present. Mental Status: She is alert and oriented to person, place, and time. Psychiatric: Mood and Affect: Mood normal. Behavior: Behavior normal. Thought Content: Thought content normal. Judgment: Judgment normal. Mammogram, pathology, medical chart reviewed in detail. Biopsy at [facility] reviewed Assessment & Plan No problem-specific Assessment & Plan notes found for this encounter. #1 Breast cancer--Stage IA right breast cancer, low risk features. 2% mortality risk. Would not consider chemotherapy, so no oncotype ordered. Definitely willing to try endocrine therapy. Radiation recommended given young age, and presence of allen-neural invasion. #2 Chemotherapy--monitoring for toxicity--not discussed. #3 Fatigue--stable. #4 Menopausal symptoms--stable, but history suggests she may have difficulty with AI's. #5 Bone health--no hx dexa scan. Will order for f/u appt after RT. #6 Medication management --discussed AI risks/ benefits. Plan: f/u 3 months with dexa scan Smoking cessation referral in place, meeting with team today. Thank you for this referral, I appreciate the opportunity to participate in her care. Time: 60 minutes of this 80 minute visit was spent in counseling patient on treatment options and assessment and plan. Srej-yt-ndhg visit 80 min History and Physical: 20 min. Discussion pts of counseling: as outlined above. documented in this encounter Plan of Treatment Upcoming Encounters Date Type Department Care Team (Late st Contact Info) Description 01/11/2025 1:00 PM EDT Office Visit Radiation Oncology at [address] [phone] Misty Llanos MD [facility] [address] [place] [address] 08/23/2025 1:10 PM EST Appointment Mammography/[place] [phone] Jody Tam APRN [facility] [place] [address] 08/23/2025 2:10 PM EST Office Visit [place] [phone] Jody Tam APRN [facility] [place] [address] documented as of this encounter Results * DXA Central Spine, Hip, and/or Whole Body (Generic) (06/27/2022 10:56 AM EDT) Anatomical Region Laterality Modality C-spine, Hip N/A Other Impressions 06/27/2022 12:41 PM EDT Measurements meet WHO criteria for osteoporosis. Estimating Fracture Risk: ? The relationship between bone mineral density (BMD) and risk of fracture is well established. As BMD decreases, risk increases. Quantifying risk is difficult and is usually limited to estimation of the relative risk - a term which may have limited value when trying to discuss an individual's risk. Estimating the absolute risk for a patient requires an understanding of the incidence rate in a given population and consideration of multiple, partially independent, risk factors in addition to BMD. ? The World Health Organization (WHO) has developed a fracture risk prediction tool that calculates a ten-year risk of major osteoporotic fracture based on femoral neck bone density measurements and nine clinical risk factors for individuals who have not been treated for osteoporosis. This is available through an interactive web-based interface (http://www.shef.ac.uk/FRAX/) and can be used to estimate a given patient's absolute risk of major osteoporotic fracture or hip fracture over the next 10 years. These estimates may prove useful when discussing risk with a patient. It is important, however, to understand the tool's limitations and how a given individual's risk might differ from the tool's estimate. The tool does not take into account the dose-response associated with most risk factors. For example, the significant increase in risk associated with multiple prior fractures compared to a single prior fracture is not taken into account. Similarly, the location of a previous fracture, the amount of glucocorticoids and number of cigarettes smoked are not considered. These limitations are discussed in a Frequently Asked Questions section of the FRAX website which you are encouraged to review. ? DEXA data sheets with BMD measurements and plots are available in EInstant Opinion under the imaging tab. Paper copies will be sent to providers without E- access. If you have received this report without the data sheet and do not have access to REscour, please contact Radiology Belt Sander Stone at [phone] Saturday thru Saturday 8am-4pm. ? Bone Density Report ? Name: ?Gena Morales Age: ? 56 Sex: ? Female Ethnicity: ? White Date of : 1965 Exam Date: June 27, 2022 Accession number: [id number] Bone Density: Region ? BMD ?T-score ??Z-score ? AP Spine(L1-L4) ?0.724 ?? -2.9 ? -1.6 ? Femoral Neck (Left) ?0.534 ?? -2.8 ? -1.6 ? Total Hip (Left) ? 0.697 ?? -2.0 ? -1.1 ? World Health Organization criteria for BMD impression classify patients as: Normal (T-score at or above -1.0), Osteopenia (T-score between -1.0 and -2.5), or Osteoporosis (T-score at or below -2.5). Thank you for letting us participate in the care of this patient. ??If you are a health care provider and have any questions regarding this report, please contact the number below. ??For patients who have questions please contact the health physician locums urgent care that requested your imaging first. ? Narrative 06/27/2022 12:41 PM EDT EXAMINATION: DXA CENTRAL SPINE, HIP, AND/OR WHOLE BODY (GENERIC) CLINICAL HISTORY: 56 years Female baseline screening osteoporosis ?? (as entered by ordering provider) TECHNIQUE: Scans were acquired at the lumbar spine, and left hip using the Hologic Horizon A system. COMPARISON: none FINDINGS: Femoral neck BMD: 0.534 ? g/cm2 Lowest T-score at a diagnostic region of interest: T-score: -2.9, ALEXANDER: Lumbar spine, WHO diagnosis: ??osteoporosis Procedure Note SinSuha MD - 06/27/2022 EXAMINATION: DXA CENTRAL SPINE, HIP, AND/OR WHOLE BODY (GENERIC) CLINICAL HISTORY: 56 years Female baseline screening osteoporosis (as entered by ordering provider) TECHNIQUE: Scans were acquired at the lumbar spine, and left hip usingthe Hologic Horizon A system. COMPARISON: none FINDINGS: Femoral neck BMD: 0.534 g/cm2 Lowest T-score at a diagnostic region of interest: T-score: -2.9, ALEXANDER: Lumbar spine, WHO diagnosis: osteoporosis IMPRESSION Measurements meet WHO criteria for osteoporosis. Estimating Fracture Risk: ? The relationship between bone mineral density (BMD) and risk of fractureis well established. As BMD decreases, risk increases. Quantifying risk isdifficult and is usually limited to estimation of the relative risk - a term which mayhave limited value when trying to discuss an individual's risk. Estimatingthe absolute risk for a patient requires an understanding of the incidencerate in a given population and consideration of multiple, partially independent,risk factors in addition to BMD. ? The World Health Organization (WHO) has developed a fracture riskprediction tool that calculates a ten-year risk of major osteoporotic fracture basedon femoral neck bone density measurements and nine clinical risk factorsfor individuals who have not been treated for osteoporosis. This isavailable through an interactive web-based interface (http://www.shef.ac.uk/FRAX/)and can be used to estimate a given patient's absolute risk of majorosteoporotic fracture or hip fracture over the next 10 years. These estimates mayprove useful when discussing risk with a patient. It is important, however, to understand the tool's limitations and how a given individual's risk mightdiffer from the tool's estimate. The tool does not take into account thedose-response associated with most risk factors. For example, the significant increasein risk associated with multiple prior fractures compared to a single priorfracture is not taken into account. Similarly, the location of a previous fracture,the amount of glucocorticoids and number of cigarettes smoked are notconsidered. These limitations are discussed in a Frequently Asked Questions sectionof the FRAX website which you are encouraged to review. ? DEXA data sheets with BMD measurements and plots are available in EInstant Opinionunder the imaging tab. Paper copies will be sent to providers without Slicethepie access.If you have received this report without the data sheet and do not haveaccess to Slicethepie, please contact Radiology Belt Sander Stone at [phone] Saturdayrid 8am-4pm. Bone Density Report Name: Gena Morales Age: 56 Sex: Female Ethnicity: White Date of : 1965 Exam Date: June 27, 2022 Accession number: [id number] Bone Density: Region BMD T-score Z-score AP Spine(L1-L4) 0.724 -2.9 -1.6 Femoral Neck (Left) 0.534 -2.8 -1.6 Total Hip (Left) 0.697 -2.0 -1.1 World Health Organization criteria for BMD impression classify patients as: Normal (T-score at or above -1.0), Osteopenia (T-score between -1.0 and -2.5), or Osteoporosis (T-score at or below -2.5). Thank you for letting us participate in the care of this patient. If youare a health care provider and have any questions regarding this report,please contact the number below. For patients who have questions please contactthe health physician locums urgent care that requested your imaging first. Marianela Goldman MD IMG DEXA ORDERABLES documented in this encounter Visit Diagnoses Diagnosis Malignant neoplasm of lower-outer quadrant of right breast of female, estrogen receptor positive At risk of fracture due to osteoporosis Malignant neoplasm of lower-outer quadrant of right breast of female, estrogen receptor positive At risk of fracture due to osteoporosis documented in this encounter Care Teams Literature Professor Relationship Specialty Start Date End Date Brittany Wynne MD [address] [place] [address] [place] [address] PCP - General Family Medicine 10/23/21 documented as of this encounter
--- OUTSIDE RECORDS SUMMARY | 2024-10-26 16:33 | XMS_ITS | Encounter Summary ---
Author Organization [place] [address] Care Team Providers Care Inventory Administrator Name Role Phone Brittany Wynne MD Primary Care Provider + Encounter Details Date Type Department Care Team (Late st Contact Info) Description 07/10/2022 Telephone [place]ematology [place] [phone] Hank Stallworth MD Social History Tobacco Use Types Packs/Day Years [...] encounter Miscellaneous Notes * Telephone Encounter - Hank Stallworth MD - 07/10/2022 11:30 AM EDT Reason for call: Consult request Caller: Loretta Berger MD Hospital: [facility] HPI: Fouzia Morales is a 56F with Stage IA ER/[place]+, HER2- rright breast cancer s/p right partial mastectomy and sentinel node excision on 11/20/2021 with low risk features, who presented to [facility] for SOB and COPD exacerbation. Patient had a [address] done on 07/09/22 to follow up on a 6 mm posterior right lower lobe pulmonary nodule that was identified on 12/2021. Imaging CT 06/2022 showed: 13mm CATHERINE speculated nodule 4x6mm RML nodule 4mm posterior RL base nodule I discussed with Dr. Llanos and she will see the patient for a follow up this week. We will plan tohave a PET/CT performed as well as referral to pulmonary team. Afterwards, will determine best route for biopsy pending image scan findings. These recommendations were communicated to the ED team. Case was discussed with Dr. Viet Stallworth Hematology/Oncology Fellow 07/10/22, 11:30 AM documented in this encounter Plan of Treatment Upcoming Encounters Date Type Department Care Team (Late st Contact Info) Description 01/11/2025 1:00 PM EDT Office Visit Radiation Oncology at [address] [phone] Misty Llanos MD [facility] [place] [address] 08/23/2025 1:10 PM EST Appointment Mammography/[place] [phone] Jody Tam, [facility] [place] [address] 08/23/2025 2:10 PM EST Office [place] [phone] Jody Tam, [facility] [place] [address] documented as of this encounter Visit Diagnoses Not on filedocumented in this encounter Care Teams Inventory Administrator Relationship Specialty Start Date End Date Brittany Wynne MD [address] [place] [address] [place] [address] PCP - General Family Medicine 10/23/21 documented as of this encounter
--- OUTSIDE RECORDS SUMMARY | 2024-10-26 16:33 | XMS_ITS | Encounter Summary ---
Author Organization [facility] Address [facility] [place] [address] Care Team Providers Care Shop Worker Name Role Phone Brittany Wynne MD Primary Care Provider + Reason for Visit * Auth/Cert Specialty Diagnoses / Procedures Referred By Sandeep palm Referred To Contact Diagnoses Breast cancer BREAST CANCER Procedures PRO MASTECTOMY PARTIAL PRO BX/REMV, LYMPH NODE, DEEP AXILL PRO INTRAOP SENTINEL LYMPH ID W/DYE INJECTION MASTECTOMY PARTIAL (WRVU 10.13) BIOPSY OR EXCISION OF LYMPH NODE(S), OPEN, DEEP AXILLARY NODE(S) (WRVU 6.43) INTRAOPERATIVE ID (MAPPING) SENTINEL LYMPH NODE,INCLUDES INJECTION (WRVU 2.5) MODIFIER WITH NEEDLE LOC., LESION #1 MODIFIER SENTINEL NODE EXCISION Referral ID Status Reason Start Date Expiration Date Visits Re quested Visits Authorized [id number] 1 1 Encounter Details Date Type Department Care Team (Latest Contact Info) Description 11/20/2021 9:10 AM EST - 11/20/2021 10:14 AM [facility] [place] [phone] Bettina Chong MD [facility] [place] [address] Malignant neoplasm of right breast in female, estrogen receptor positive, unspecified site of breast Discharge Disposition: Home Social History Tobacco Use Types Packs/Day Years Used Date Smoking Tobacco: Former Cigarettes Smokeless Tobacco: Never Comments:off and on since 2 018 currently not smoking Alcohol Use Standard Drinks/Week Comments Not Asked [...] place to sleep or slept in a fci (including now)? No 11/06/2021 Sex and Gender Information Value Date Recorded Sex Assigned at Female 10/16/2021 7:15 PM EST Gender Identity Female 10/16/2021 7:15 PM EST Sexual Orientation Straight 10/16/2021 7: 15 PM EST documented as of this encounter Medications at Time of Discharge Medication Sig Dispensed Refills Start Date End Date loratadine (Claritin) 10 mg Tablet Take 10 mg by mouth daily. acetaminophen (Tylenol) 500 mg Tablet Take 1,000 mg by mouth every 6 hours as needed for Pain. montelukast (Singulair) 10 mg Tablet Take 10 mg by mouth nightly. 09/06/2021 ipratropium-albuteroL (Duoneb) 0.5 mg-3 mg(2.5 mg base)/3 mL Solution for Nebulization Take 3 mLs by nebulization every 4 hours as needed. 10/07/2021 Spiriva with HandiHaler 18 mcg Capsule, w/Inhalation Device 10/19/2021 09/03/2022 nicotine (Nicoderm CQ) 21 mg/24 hr Patch 24 hrIndications:Cigarett e smoker Change 1 patch on the skin over 24 hrs. 42 patch 11/13/2021 02/01/2022 albuteroL 90 mcg/actuation HFA Aerosol Inhaler 10/02/2021 09/07/2022 Wixela Inhub 500-50 mcg/dose Disk with Device 08/09/2021 03/20/2022 documented as of this encounter Plan of Treatment Upcoming Encounters Date Type Department Care Team (Late st Contact Info) Description 01/11/2025 1:00 PM EDT Office Visit Radiation Oncology at [address] [place] [address] [phone] Misty Llanos MD [facility] [place] [address] 08/23/2025 1:10 PM EST Appointment Mammography/[place] [phone] Jody Tam [facility] [place] [place] [address] 08/23/2025 2:10 PM EST Office [place] [phone] Jody Tam [facility] [place] [place] [address] documented as of this encounter Procedures Procedure Name Priority Date/Time Associated Diagnosis Comments MAMMO DIAGNOSTIC WITHOUT CAD RIGHT Routine 11/20/2021 9:56 AM EST Malignant neoplasm of right breast in female, estrogen receptor positive, unspecified site of breast documented in this encounter Results * Mammo Diagnostic Without Cad Right (11/20/2021 9:56 AM EST) Anatomical Region Laterality Modality Breast Right Mammography Impressions 11/21/2021 4:02 PM EST Status post ultrasound-guided needle localization with mammographic confirmation of appropriate positioning. Status post sentinel lymph node injection without follow-up imaging. The radiotracer injection was administered under the supervision of authorized user Dr. Jossue Pierce. Preliminary report signed by: Janes Haney at 11/20/2021 10:02 AM I have personally reviewed the image(s) and the resident's interpretation and agree with the findings, Bettina Chong MD at 11/21/2021 4:02 PM Thank you for letting us participate in the care of this patient. ??If you are a health care provider and have any questions regarding this report, please contact the number below. ??For patients who have questions please contact the health field care coordinator that requested your imaging first. ? Electronically signed by: Bettina Chong MD, [facility] ([phone]), at 11/21/2021 4:02 PM Narrative 11/21/2021 4:02 PM EST NEEDLE LOCALIZATION OF LESION IN THE RIGHT BREAST AND SENTINEL NODE INJECTION CLINICAL HISTORY: Please needle localize right breast for cancer lesion. [place] node injection. TECHNIQUE: Informed consent was confirmed and a timeout procedure was performed per protocol. Following skin cleansing and injection less than 5 cc's 1% lidocaine, a needle localization of the suspicious area in the Right breast was performed ??with ultrasound guidance. Cranio-caudal and 90 degree digital mammography views were obtained following localization to document wire position. ??Images were annotated on PACS for the operating surgeon. A sentinel node injection was performed using less than 2 mCi of Tc-99m sulfur colloid. One quarter of the dose was injected subcutaneously and three quarters injected intradermally. No additional imaging was performed. Procedural attestation: Resident: Janes Haney M.D. I was present with the resident for the ac component(s) of the procedure and otherwise remained immediately available for the duration of the procedure. I attest to having personally viewed the images/test and approve the above interpretation. Bettina Chong MD IMG MAMMO ORDERABL ES documented in this encounter Visit Diagnoses Diagnosis Malignant neoplasm of right breast in female, estrogen receptor positive, unspecified site of breast documented in this encounter Care Teams Shop Worker Relationship Specialty Start Date End Date Brittany Wynne MD [address] [place] [address] [place] [address] PCP - General Family Medicine 10/23/21 documented as of this encounter
--- OUTSIDE RECORDS SUMMARY | 2024-10-26 16:33 | XMS_ITS | Encounter Summary ---
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 ON TREATMENT VISIT NOTE Date of service: 02/01/2022 Identification: Gena Morales is currently undergoing radiation therapy at [facility] for right breast cancer Pt. is here today during treatment for an on treatment visit. Pt had a flu-like symptom complex w/nausea & emesis earlier this week. Planned Total RT Dose: 42.56 Gy Current Fraction: 8 of 16 Current treatment dose: 21.28 cGy in 8 fractions. Anticipated total dose: 4256 cGy in 16 fractions. Evaluation of Port Verification Films: done, please see ARIA record for details SUBJECTIVE: Changes in medical condition: Fatigue: None; X Mild; Moderate; Severe; Disabling Skin Reaction: No; X Yes, over breast Nausea: X None; Without change in eating habits; With decreased oral intake; With inadequate caloric intake; Vomiting: X No; Yes Pain (scale 1-10): 0 Feels much better today OBJECTIVE: Physical examination: Ill-appearing; Well-appearing Mode of transportation: Ambulatory; Wheelchair/Scooter; Walker/Cane; Other Radiation dermatitis: No; X Yes, mild per nurse verbal report LE Edema: No; Yes Gen: no orthostasis (per nursing verbal report) New Investigations: N/A Assessment (including toxicity, grade, and attribution): None; X Fatigue; Nausea/Vomiting; Other: Recommendation on continuing course of radiation therapy: Continue RT. Aydin Peralta MD Attending Physician Radiation Oncology documented in this encounter Plan of Treatment Upcoming Encounters Date Type Department Care Team (Late st Contact Info) Description 01/11/2025 1:00 PM EDT Office Visit Radiation Oncology at [address] [phone] Misty Llanos MD [facility] [place] [address] 08/23/2025 1:10 PM EST Appointment Mammography/[place] [phone] Jody Tam APRN [facility] [place] [address] 08/23/2025 2:10 PM EST Office [place] [phone] Jody Tam APRN [facility] [place] [address] documented as of this encounter Visit Diagnoses Diagnosis 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
--- OUTSIDE RECORDS SUMMARY | 2024-10-26 16:33 | XMS_ITS | Encounter Summary ---
Author Organization [facility] Address [facility] [place] [address] Care Team Providers Care Physiotherapy Aide Name Role Phone Brittany Wynne MD Primary Care Provider + Encounter Details Date Type Department Care Team (Late st Contact Info) Description 02/19/2022 11:45 AM EDT Notes Only Radiation Oncology at [address] [phone] Misty Llanos MD [facility] [place] [place] [address] Social History Tobacco Use Types Packs/Day Years [...] Progress Notes * Misty Llanos MD - 02/19/2022 11:45 AM EDT Gena Morales has completed xrt for breast ca, R, IDC, gr 1, ER+MN+, Her2-, s/p lumpectomy &SNB, pT1b pN0. Consideration for endocrine tx after xrt completion. The course of xrt is summarized as follows: Treatment was given from 01/09/22 to 02/19/22. 42.56 Gy in 16 fxs was given to R breast w/6 & 10 MV Xray external beam, followed by volume reduction & 10 Gy/4 fxs to lumpectomy bed w/6 MV Xray external beam, boosting lumpectomy bed to 52.56 Gy/20 fxs. 3D xrt used throughout treatment. The course of xrt was tolerated well, w/the expected side effect of skin reaction w/in irradiated area managed w/phytoplex cream. Exam near completion of xrt showed moderately brisk erythema of R breast, skin intact. Rtc 03/20/22. Low dose noncontrast CT ch in Sept for followup 6 mm indeterminate RLL nodule. She stopped smoking 2 mos ago & has appt w/roll dough divider @ [facility] in February. documented in this encounter Plan of Treatment Upcoming Encounters Date Type Department Care Team (Late st Contact Info) Description 01/11/2025 1:00 PM EDT Office Visit Radiation Oncology at [address] [phone] Misty Llanos MD [facility] [place] [address] 08/23/2025 1:10 PM EST Appointment Mammography/[place] [phone] Jody Tam [facility] [place] [address] 08/23/2025 2:10 PM EST Office Visit [place] [phone] Jody Tam [facility] [place] [address] documented as of this encounter Visit Diagnoses Not on filedocumented in this encounter Care Teams Physiotherapy Aide Relationship Specialty Start Date End Date Brittany Wynne MD [address] [place] [address] [place] [address] PCP - General Family Medicine 10/23/21 documented as of this encounter
--- OUTSIDE RECORDS SUMMARY | 2024-10-26 16:33 | XMS_ITS | Encounter Summary ---
[place] [address] Care Team Providers Care Voicer Name Role Phone Brittany Wynne MD Primary Care Provider + Reason for Referral * Allergy Testing (Routine) - Closed Specialty Diagnoses / Procedures Referred By Contdaiana t Referred To Contact Allergy Diagnoses Asthma, unspecified asthma severity, unspecified whether complicated, unspecified whether persistent Alicia Castorena MD [address] [place] [address] [place] [address] [facility] All[facility] [address] [place] [address] Referral ID Status Reason Start Date Expiration Date V isits Requested Visits Authorized [id number] Closed Consult, Test & Treat PCP Updated and/or Approved 05/29/2022 05/29/2023 6 6 Encounter Details Date Type Department Care Team (Latest Contact Info) Description 05/29/2022 Transcribe Orders eDH Incoming Referrals [phone] Alicia Castorena MD [address] [place] [address] [address] [place] [phone] Asthma, unspecified asthma severity, unspecified whether complicated, unspecified whether persistent Social History Tobacco Use Types Packs/Day Years [...] PM EDT Office Visit Radiation Oncology at [address] [phone] Misty Llanos MD [facility] [place] [address] 08/23/2025 1:10 PM EST Appointment Mammography/[place] [address] Jody Tam, [facility] [place] [address] 08/23/2025 2:10 PM EST Office [place] [address] Jody Tam, [facility] [place] [address] Scheduled Referrals Name Type Priority Associated Diagnoses Orde r Schedule Referral to Allergy Outpatient Referral Routine Asthma, unspecified asthma severity, unspecified whether complicated, unspecified whether persistent Ordered: 05/29/2022 documented as of this encounter Visit Diagnoses Diagnosis Asthma, unspecified asthma severity, unspecified whether complicated, unspecified whether persistent documented in this encounter Care Teams Voicer Relationship Specialty Start Date End Date Brittany Wynne MD [address] [place] [address] [place] [address] PCP - General Family Medicine 10/23/21 documented as of this encounter
--- OUTSIDE RECORDS SUMMARY | 2024-10-26 16:33 | XMS_ITS | Encounter Summary ---
Author Organization [facility] Address [facility] [place] [address] Care Team Providers Care Supervisor Ovens Name Role Phone Brittany Wynne MD Primary Care Provider + Encounter Details Date Type Department Care Team (Late st Contact Info) Description 01/17/2022 Telephone Radiation Oncology at [address] [phone] Veronica Acevedo, RN Social History Tobacco Use Types Packs/Day [...] place to sleep or slept in a chcf (including now)? No 11/06/2021 Sex and Gender Information Value Date Recorded Sex Assigned at Female 10/16/2021 7:15 PM EST Gender Identity Female 10/16/2021 7:15 PM EST Sexual Orientation Straight 10/16/2021 7: 15 PM EST documented as of this encounter Miscellaneous Notes * Telephone Encounter - Veronica Acevedo RN - 01/17/2022 10:21 AM EDT Radiation Oncology Nurse Telephone Note [facility] [place], [place] ----- Message from Radha Kaplan sent at 01/17/2022 9:48 AM EDT ----- Regarding: Covid Test Negative- New Exposure to Symptomatic Positive Person Gena called to let us know that her covid test came back negative but her son was symptomatic yesterday and has tested positive. She has been in contact with him for the past three days, but is not experiencing symptoms. She's wondering what she should do. She did not tell me whether or not sureis vaccinated. We have her on the schedule for treatment today at 330pm. Can you please give her a call to let her know what next steps should be? 01/17/22 10:15 Telephone call to patient . She states that her son, his fidavidson and their 18 month daughter all live with her. 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 She states she was feeling feverish Saturday noc and went to ( [facility]) [facility] for the COVID test 01/15 and she has recently learned that it is negative. She is feeling pretty good now. She has COPD with occasional normal wheezing. But no coughing, shortness of breath , no loss of taste, no fever, no diarrhea or any other complaints. She said she received the [employer] covid vaccine then end of May 2021. She was told she may resume her radiation treatments ( this was confirmed with our nurse assisted living care manager) time was confirmed with her. She has only received 2 txs so far due to missing 2 treatment this week while waiting for her covid test result, radiation machine being down one afternoon last week and a family emergency. Dr Llanos update via this note documented in this encounter Plan of Treatment Upcoming Encounters Date Type Department Care Team (Late st Contact Info) Description 01/11/2025 1:00 PM EDT Office Visit Radiation Oncology at [address] [phone] Misty Llanos MD [facility] [place] [address] 08/23/2025 1:10 PM EST Appointment Mammography/[place] [address] Jody Tam [facility] [place] [address] 08/23/2025 2:10 PM EST Office Visit [place] [phone] Jody Tam [facility] [place] [address] documented as of this encounter Visit Diagnoses Not on filedocumented in this encounter Care Teams Supervisor Ovens Relationship Specialty Start Date End Date Brittany Wynne MD [address] [place] [address] [place] [address] PCP - General Family Medicine 10/23/21 documented as of this encounter
--- OUTSIDE RECORDS SUMMARY | 2024-10-26 16:33 | XMS_ITS | Encounter Summary ---
Author Organization [facility] [place] [address] Care Team Providers Care Credentialing Coordinator Name Role Phone Brittany Wynne MD Primary Care Provider + Encounter Details Date Type Department Care Team (Latest Contact Info) Description 12/05/2021 2:34 PM EST - 12/05/2021 11:59 PM EST Hospital [place] [phone] Bettina Chong MD [facility] [place] [address] Discharge Disposition: Home Social History Tobacco Use [...] Upcoming Encounters Date Type Department Care Team (Marina st Contact Info) Description 01/11/2025 1:00 PM EDT Office Visit Radiation Oncology at [address] [phone] Misty Llanos MD [facility] [place] [address] 08/23/2025 1:10 PM EST Appointment Mammography[place] [phone] Jody Tam [facility] [place] [address] 08/23/2025 2:10 PM EST Office [place] [phone] Jody Tam [facility] [address] documented as of this encounter Procedures Procedure Name Priority Date/Time Associated Diagnosis Comments MAMMO BREAST PATHOLOGY LUMPECTOMY Routine 12/05/2021 2:34 PM EST documented in this encounter Results * MAMMO BREAST PATHOLOGY LUMPECTOMY (12/05/2021 2:34 PM EST) Narrative Dicom, Auditing User - 12/05/2021 2:34 PM EST This exam is auto-finalizing. No interpretation was done. Bettina Chong MD IMG MAMMO ORDERABL ES documented in this encounter Visit Diagnoses Not on filedocumented in this encounter Care Teams Credentialing Coordinator Relationship Specialty Start Date End Date Brittany Wynne MD [address] [place] [address] [place] [address] PCP - General Family Medicine 10/23/21 documented as of this encounter
--- OUTSIDE RECORDS SUMMARY | 2024-10-26 16:33 | XMS_ITS | Encounter Summary ---
Author Organization [facility] Address [facility] [place] [address] Care Team Providers Care Talent Acquisition Lead Name Role Phone Brittany Wynne MD Primary Care Provider + Encounter Details Date Type Department Care Team (Late st Contact Info) Description 11/26/2021 Telephone Hematology/Oncology at [address] [phone] Nilam Jiang, [facility] DR HEMATOLOGY [place] [address] Social History Tobacco Use Types Packs/Day Years [...] encounter Miscellaneous Notes * Telephone Encounter - Nilam Jiang RD - 11/26/2021 8:06 PM EST [facility] Initial Assessment Patient Name: Gena Morales Diagnosis: breast cancer Referred by: Dr. Llanos Assessment: HPI Patient Active Problem List Diagnosis Code ??? Malignant neoplasm of right breast in female, estrogen receptor positive C50.911, Z17.0 Estimated body mass index is 27.67 kg/m?? as calculated from the following: Height as of 11/20/21: 149.9 cm (4' 11). Weight as of 11/20/21: 62.1 kg (137 lb). Wt Readings from Last 3 Encounters: 11/20/21 62.1 kg (137 lb) 11/13/21 62.5 kg (137 lb 12.8 oz) 10/26/21 63 kg (139 lb) Patient reports she has gained 7-8# since quitting smoking recently Medications: Claritin, Tylenol Patient s/p partial mastectomy. She will be starting RT next month. Labs on 10/26: BG 88, Bun 19H, Creat 0.74, Na 138, K 4.2, Alb 4.6, AST 23, ALT 35H, AlkPhos 117H, Nutrition Screen 11/26/2021 11/13/2021 Reason for assessment New consult - Total MST Score - 0 Functional Status 11/26/2021 Appetite Increased compared to usual intake Patient reports increased appetite since starting smoking. She has no other nutrition related symptoms. 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 Spoke with patient over the phone today per her request to discuss nutrition related to breast cancer and upcoming RT treatment. 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 Dinner is a homemade meal. Her PO intake has increased since quitting smoking. Food Insecurity Screening 11/06/2021 Within the past 12 months, the food you bought just didn't last and you didn't have money to get more. 1 Estimated needs based on current weight 62.1 k kcals (25 kcal/kg) 62-93 g protein (1-1.5 g/kg) ~1.6-2 L fluid Nutrition Intervention: * Encouraged avoiding further weight gain given diagnosis of breast cancer. Encouraged limiting fast food takeout and gatorade, increasing intake of fruits and vegetables and water. * Encouraged avoiding excessive intake of antioxidants in ONS and supplements during treatment (notcurrently an issue). Mailed patient written handouts on nutrition related to breast cancer and RT. Monitoring and Evaluation: Will follow up with Gena as needed to re-evaluate. I have provided her with my card and contact information should she have any questions in the meantime. Thank you for this consult. Nilam Jiang RD documented in this encounter Plan of Treatment Upcoming Encounters Date Type Department Care Team (Late st Contact Info) Description 01/11/2025 1:00 PM EDT Office Visit Radiation Oncology at [address] [phone] Misty Llanos MD [facility] [place] [address] 08/23/2025 1:10 PM EST Appointment Mammography/DXA at [place] [phone] Jody Tam APRN [facility] [place] [address] 08/23/2025 2:10 PM EST Office Visit General Surgery at [place] [phone] Jody Tam APRN [facility] [place] [address] documented as of this encounter Visit Diagnoses Not on filedocumented in this encounter Care Teams Talent Acquisition Lead Relationship Specialty Start Date End Date Brittany Wynne MD [address] [place] [address] [place] [address] PCP - General Family Medicine 10/23/21 documented as of this encounter
--- OUTSIDE RECORDS SUMMARY | 2024-10-26 16:33 | XMS_ITS | Encounter Summary ---
Author Organization Formerly [facility] Address [facility] [place] [address] Care Team Providers Care Infection Prevention Coordinator Name Role Phone Brittany Wynne MD Primary Care Provider + Reason for Visit * Reason Comments Follow-up Encounter Details Date Type Department Care Team (Late st Contact Info) Description 06/27/2022 1:30 PM EDT Office Visit [place] [address] Marianela Goldman MD [facility] [address] HEMATOLOGY [place] [address] Malignant neoplasm of lower-outer quadrant of right breast of female, estrogen receptor positive Social History Tobacco Use Types Packs/Day Years [...] Reading Time Taken Comments Blood Pressure 117/81 06/27/2022 1:23 PM EDT Pulse 96 06/27/2022 1:23 PM EDT Temperature 36.2 ??C (97.2 ??F) 06/27/2022 1:23 PM ED T Respiratory Rate 17 06/27/2022 1:23 PM EDT Oxygen Saturation 92% 06/27/2022 1:23 PM EDT Inhaled Oxygen Concentration - - Weight 67.6 kg (149 lb 0.5 oz) 06/27/2022 1:23 P M EDT Height 146.1 cm (4' 9.52) 06/27/2022 1:23 PM ED T Body Mass Index 31.67 06/27/2022 1:23 PM EDT documented in this encounter Progress Notes * Boris Vela MD - 06/27/2022 1:30 PM EDT Subjective: Patient ID: Gena Morales is a 56 y.o. F with Stage IA ER/ID+/Her2- right breast cancer now s/p lumpectomy and XRT. CC: breast cancer HPI: Since her last visit in November, patient has completed XRT. In regards to her breast CA, she feels things have been excellent. She has had minimal issues with pain after surgery and may have a single twinge at the site but overall doing well. She has been talking with her Hospital Monitor and PCP regarding hormone therapy. Her thought now is that her lung disease should be the focus at this time. She states that her COPD/asthma has been acting up. She is now on trelegy with some good effect. She sees Dr. Coleman in [facility] for Pulmonology. There is a possibility of lung transplant. 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 She has had a couple slip ups but has not had a cigarette since December. She currently lives with her son's family including her 2 yo granddaughter. One concern was she gotCOVID in the spring but has recovered well. DEXA scan performed today. FINDINGS: Lowest T-score at a diagnostic region of interest: T-score: -2.9, ALEXANDER: Lumbar spine, WHO diagnosis: osteoporosis IMPRESSION Measurements meet WHO criteria for osteoporosis. Mammogram performed today. Results pending. Onc History: 09/07/21 bx [facility], [place]: ER/ID+/HER2- right breast IDC, low grade, luminal A features Screening mammogram detected No prior call backs or biopsies 1.1 cm suspicious mass in LOQ, bx 09/07/21 at [facility] complicated by rib trauma and pain. Diagnostic images with calcifications at 0600, stable compared to prior MRI without other abnormalities Right lumpectomy IDCA grade 1 8.5 mm + perineural invasion, 0/5 LN + pT1bN0 Stage IA Menses age 12-48 1st at age 19 Fhx: biologic mother chronically ill, adopted , 1 sister without cancer. Niece had a biopsy that was benign. Review of Systems Review of Systems Constitutional: Negative for chills, fever and malaise/fatigue. HENT: Negative for congestion and sore throat. Respiratory: Positive for cough, shortness of breath and wheezing. Negative for hemoptysis and sputum production. Cardiovascular: Negative for chest pain, palpitations and leg swelling. Gastrointestinal: Negative for abdominal pain, constipation, diarrhea, nausea and vomiting. Musculoskeletal: Negative for joint pain. Skin: Negative for rash. Neurological: Negative for weakness and headaches. Past Medical History: Patient Active Problem List Diagnosis Code ??? Malignant neoplasm of right breast in female, estrogen receptor positive C50.911, Z17.0 Medications and Allergies: Reviewed in electronic medical record. Social History: Social History Socioeconomic History ??? Marital status: Spouse name: Not on file ??? Number of children: Not on file ??? Years of education: Not on file ??? Highest education level: Not on file Occupational History ??? Not on file Tobacco Use ??? Smoking status: Former Smoker Packs/day: 0.50 Types: Cigarettes Quit date: 12/17/2021 Years since quittin.5 ??? Smokeless tobacco: Never Used Vaping Use [...] Unstable Housing in the Last Year: No Objective: Physical Exam Constitutional/General: NAD HEENT: PERRL, EOMI, MMM, oropharynx clear Neck/Thyroid: no tender lymphadenopathy; no thyromegaly Axilla: no LAD Lungs: non-labored breathing, mild wheezing to the bilateral lower lung de león Heart: RRR, S1/S2 present, no murmurs/rubs/gallops Abdomen: +BS, soft, nondistended, nontender to palpation, no masses or organomegaly Ext: radial and DP pulses 2+ b/l; no edema Neurologic: non-focal Skin: no rashes noted, no lesions Assessment and Plan: #1 Breast cancer--Stage IA right breast cancer, low risk features. 2% mortality risk. Would not consider chemotherapy, so no oncotype ordered. Patient has declined endocrine therapy at this time due to her lung disease and preference to focus on that for now. ?? She has since completed XRT and tolerated well. ?? #2 Chemotherapy--monitoring for toxicity--not discussed. ?? #3 Fatigue--stable. ?? #4 Menopausal symptoms--stable ?? #5 Bone health-- Osteoporosis on scan today (T score: -2.9 in lumbar spine) - would benefit from starting a bisphosphonate - prefers to go through her PCP for this. ?? #6 Medication management --discussed AI risks/ benefits as well as bisphosphonate benefit. Deferring to start new therapy at this time. Return to clinic as needed in the future if reconsiders endocrine therapy or new issues arise. The patient was seen and discussed with oncology attending Dr. Goldman. Boris Vela MD Hematology/Medical Oncology Fellow 06/27/22, 2:21 PM * Marianela Goldman MD - 06/27/2022 1:30 PM EDT I have seen the patient in person and reviewed the resident's above history and I agree with the details as written. The assessment and plan were formulated in discussion with me and I agree with them as documented. Major issues addressed: Women with a history of breast cancer may be at increased risk of osteoporosis secondary to the adjuvant systemic therapies administered. For post-menopausal women, tamoxifen can promote stabilization to mild increase in bone mass. Researchers in the early to mid s established that there is a mean annual increase of 1-2% compared to placebo, with a similar magnitude of LOSS of bone mass in pre-menopausal women. (Ezra et al JCO 1995; Sofya et al NE 1992). For post-menopausal women with treatment-related bone loss due to aromatase inhibitor therapy, we recommend bisphosphonates or denosumab. Denosumab is FDA approved for the management of postmenopausal women with osteoporosis at high risk for fracture and has been newly FDA approved for use to increase bone mass in women receiving adjuvant aromatase inhibitors at high risk for fracture. Preclinical and early clinical studies have suggested that bisphosphonates may possess inherent antitumor activity, including antiangiogenic properties, antiproliferative and proapoptotic efficacy, which may be synergistic with chemotherapy. However, in a meta-analysis of trials that randomized patients to bisphosphonates or not in the adjuvant setting failed to find significant reductions in theoverall number of deaths, bone metastases, overall disease recurrences, distant relapse, visceral recurrences, or local relapses (Valerio et al J Natl [facility], 2010). In subgroup analyses though, the use of zoledronic acid was associated with a statistically significant lower risk for diseaserecurrence but not or bone metastases rates. A 2012 systematic review and meta-analysis confirmed that the use of bisphosphonates did not reduce the incidence of bone metastases compared to placebo (Monzon et al Eduar Database Syst Rev 2012). Bisphosphonate-induced osteoclast inhibition might make the bone microenvironment less supportive of tumor cell proliferation, and preclinical data suggests that epidemiologic data suggests that bisphosphonates used in the management of osteopenia and osteoporosis may decrease the risk of developing breast cancer (Anne et al JCO 2010; Faith et al Br J Cancer 2010; Preeti et al JCO 2010). Long-term results of NSABP B-24 presented at [place] in 2010 showed that of the 3323 patients with Stage I-III breast cancer randomly assigned to three years of clodronate (1600 mg orally daily) or placebo (22% ER neg and all received chemotherapy and endocrine therapy if ER +) there was a trend toward reduction in the rate of distant mets, a nonsignificant improvement in overall survival, a nonsignificant improvement in non skeletal metastasis-free interval and women over 50 benefited the most. Two trials evaluating letrozole treatment in combination with either delayed or immediate zoledronic acid (ZOL) :Z-FAST and ZO-FAST, at 4 mg every 6 months for 5 years there was no differences in recurrence or . A preliminary report of 60 month follow up of the Zo-Fast study presented at [id number], showed that immediate ZOL was associated with 34% decrease in disease recurrence compared to delayed therapy. Furthermore, post-menopausal women who began immediate treatment with ZOL had 29% reduction in the risk of recurrence and in addition had an improvement in overall survival by 35%. In the [place] Breast and Colorectal Cancer Study Group (ABCSG)-12 study, 1803 women with relatively low risk breast cancer (lower rates of chemotherapy given) were treated with GnRH therapy and were randomly assigned to type of endocrine therapy (tamoxifen vs anastrozole) with a second randomization to ZOL 4 mg q 6 months x 3 yrs or none. At [facility] 2010 with a median f/u of 84 months, ZOL was associated with reduction in DFS event, reduction in , and in women over 40 significant reductionin risk of DFS event and . In women less than 40 there was no benefit in DFS events or . There were no reports of jaw necrosis or renal failure. In the randomized Adjuvant treatment with Zol in stage II/ III Breast Cancer (ALEXSANDER, BIG 10/24) including 3360 pts with stage II/ III breast cancer, patients received standard adjuvant therapy with or without ZOL ( 4m IV q 3-4 wks x 6, q 3 mos x 8, q 6 mos x 5 to complete 5 yrs) with calcium 400-1000 mg/day and Vit D 200-500 IU/day. Most patients received both endocrine therapy and 95% received chemotherapy . After 6 yrs of f/u there were similar rates of DFS and OS in all patients but in stratification analysis of post-menopausal women (>5 yrs from LMP), there was improved DFS at 84 months and decreased incidence of bone mets as first recurrence, but no improvement in overall survival. In contrast long-term follow up of ABCSG-12, where not as many women received chemotherapy, did show a DFS and reduction in from zoledronic acid 4 mg q 6 months for 3 years in women over 40. At7 years of follow up there was no increase in ONJ or acute renal failure compared to placebo. A [place] Expert Group recommends bisphosphonate therapy for older women (>75 years) who have one or more risk factors for osteoporotic fracture, regardless of BMD [45]. In addition, they recommend bisphosphonates for postmenopausal women <75 years of age with T-scores <-2.0 or if bone loss in women with preexisting osteopenia (T-score between -1.0 and -2.0) occurs at a rate >=4 percent per year. Due to the rapid bone loss that occurs in premenopausal women receiving ovarian suppression with a GnRH agonist and AI, they recommend bisphosphonates for such women if the T-score is <=-1.0. In women who are not candidates for bisphosphonates initially, they recommend repeat dual-energy x-ray absorptiometry (DXA) after 24 months and initiation of bisphosphonates when the above criteria are met. ?The [place] Bone Club (BBC) recommends bisphosphonates for patients with a T- score <-2.5 or history of fragility fracture. In addition, they recommend treatment for patients with T-scores between-1.0 and -2.5 in the presence of risk factors (other than AIs). In patients not prescribed bisphosphonates, regular measurement of BMD is necessary. Bisphosphonates should be initiated if significantbone loss occurs. ?Although FRAX may underestimate bone loss attributed to AIs or other cancer treatments, the National Comprehensive Cancer Network (NCCN) incorporates FRAX into its guidelines. NCCN recommends treatment when the FRAX 10-year fracture risk is >20 percent for major fracture or >3 percent for hip fracture, or when the T-score is <-2.0 (<-1.5 if there has been significant loss of BMD as aresult of cancer therapy) [52]. Bisphosphonates and denosumab are the antiresorptive therapies for preserving bone health in women with breast cancer who are treated with AIs. ?Seven international societies recommend that bone-directed therapy should be given to all patientswith a T-score <-2.0 or with a T-score of <-1.5 SD with one additional risk factor, or with >=2 risk factors (without BMD) for the duration of AI treatment [54]. They conclude that denosumabhas the strongest evidence (as it has been shown to reduce fractures) but that bisphosphonates haveother benefits, such as a 34 percent reduction in bone metastases. ?ASCO recommends offering treatment with bisphosphonates or denosumab for prevention of fracture towomen with T-scores <=-2.5 at the lumbar spine, femoral neck, or total hip, or to women who are at increased risk of osteoporotic fracture based on clinical assessment or risk assessment tool [43]. BMD should be monitored every two years. documented in this encounter Plan of Treatment Upcoming Encounters Date Type Department Care Team (Late st Contact Info) Description 01/11/2025 1:00 PM EDT Office Visit Radiation Oncology at [address] [phone] Misty Llanos MD [facility] [place] [address] 08/23/2025 1:10 PM EST Appointment Mammography/[place] [phone] Jody Tam, [facility] [place] [address] 08/23/2025 2:10 PM EST Office [place] [phone] Jody Tam, [facility] [place] [address] documented as of this encounter Visit Diagnoses Diagnosis Malignant neoplasm of lower-outer quadrant of right breast of female, estrogen receptor positive documented in this encounter Care Teams Infection Prevention Coordinator Relationship Specialty Start Date End Date Brittany Wynne MD [address] [place] [address] [place] [address] PCP - General Family Medicine 10/23/21 documented as of this encounter
--- OUTSIDE RECORDS SUMMARY | 2024-10-26 16:33 | XMS_ITS | Encounter Summary ---
Author Organization [facility] Address [facility] [place] [address] Care Team Providers Care Narcotics And/Or Vice Detective Name Role Phone Brittany Wynne MD Primary Care Provider + Encounter Details Date Type Department Care Team (Late st Contact Info) Description 01/16/2022 Telephone Radiation Oncology at [address] [phone] Taylor Bridges, RN Social History [...] Telephone Encounter - Taylor Bridges RN - 01/16/2022 2:20 PM EDT Telephone call to patient for covid update. She had test done yesterday at [facility] and was told that results could take up to 72 hours to receive. She has been having some transient nausea without vomiting. Has been afebrile. Household member whodid test positive has been isolating in her room and using separate bathroom. Gena plans to not come in for xrt today or until she has negative test result or has clearance to resume if she is positive. I updated radiation therapy staff via Moe and Dr. Llanos with this note. * Telephone Encounter - Taylor Bridges RN - 01/16/2022 2:20 PM EDT ----- Message from Taylor Bridges RN sent at 01/15/2022 10:28 AM EDT ----- Patient having testing done at PCP. Be on look out for results/report from patient etc ----- Message ----- From: Sumi Gutierrez Sent: 01/15/2022 8:53 AM EDT To: [facility] Rad Onc Nurse Gena called in this morning and mentioned that she has a positive cause of Covid in her household and wondered what our rules are about coming in for treatment. She tested Negative with at home test this morning but woke up in the middle of next a little feverish, she wondered if she should come to treatment. [phone] documented in this encounter Plan of Treatment Upcoming Encounters Date Type Department Care Team (Late st Contact Info) Description 01/11/2025 1:00 PM EDT Office Visit Radiation Oncology at [address] [phone] Misty Llanos MD [facility] [place] [address] 08/23/2025 1:10 PM EST Appointment Mammography/[place] [phone] [facility] [place] [address] 08/23/2025 2:10 PM EST Office Visit General Surgery at [place] [phone] [facility] [place] [address] documented as of this encounter Visit Diagnoses Not on filedocumented in this encounter Care Teams Narcotics And/Or Vice Detective Relationship Specialty Start Date End Date Brittany Wynne MD [address] [place] [address] [place] [address] PCP - General Family Medicine 10/23/21 documented as of this encounter
--- OUTSIDE RECORDS SUMMARY | 2024-10-26 16:33 | XMS_ITS | Encounter Summary ---
Author Organization [facility] [place] [address] Care Team Providers Care Gang Knife Fish Chopper Name Role Phone Brittany Wynne MD Primary Care Provider + Encounter Details Date Type Department Care Team (Late st Contact Info) Description 02/16/2022 Notes [place] [phone] Alicia Gupta, MEDICAL TERMINOLOGIST Social History Tobacco Use Types Packs/Day Years [...] as of this encounter Progress Notes * Alicia Gupta, MEDICAL TERMINOLOGIST - 02/16/2022 3:31 PM EDT Per referral from CBP team I contact Gena to assess for any barriers to care per canceled upcoming bone density and f/u with Dr. Goldman. Gena reports that she got a CT scan for radiation simulation, which picked up a nodule in her right lung, as well as fibrosis. She is optimistic but also slightly concerned about whether there is any issue with her lungs that could have significance for her life span and/or quality of life. She then saw her PCP, who recommended that she see a recreational specialist. She is scheduled to see someone @ end of February 2022. She has a f/u CT scan scheduled for June. Gena reports that she quit cigarettes three months ago, cold turkey. She tested positive for COVID about a month ago. She describes her breathing as better since she quit smoking, but has felt like her breathing has been off since bc surgery back in October 2021. She uses Albuterol as well as long acting steroid inhaler, and thinks long acting inhaler has been less effective lately. Gena reports that she wants to understand what is going on with her lungs before moving forward with hormone therapy for bc dx, as these issues have her feeling overwhelmed. She understands hormone therapy to be preventive for future bc recurrence and wonders if it can wait until the . Gena also reports she is working less than before surgery and has been traveling frequently to radiation appointments at [facility], over an hour from her home. She could use gas cards and I will sendher [employer] card in the mail. We plan for me to communicate back with Dr. Goldman per above, so that if Dr. Goldman has anyconcerns per tx timeline she can be in touch with Gena. Completed today: Brief assessment Care Coordination Financial resources documented in this encounter Plan of Treatment Upcoming Encounters Date Type Department Care Team (Late Contact Info) Description 01/11/2025 1:00 PM EDT Office Visit Radiation Oncology at [address] [phone] Misty Llanos MD [facility] [place] [address] 08/23/2025 1:10 PM EST Appointment Mammography/[place] [phone] Jody Tam, [facility] [place] [address] 08/23/2025 2:10 PM EST Office [place] [phone] Jody Tam, [facility] [place] [address] documented as of this encounter Visit Diagnoses Not on filedocumented in this encounter Care Teams Gang Knife Fish Chopper Relationship Specialty Start Date End Date Brittany Wynne MD [address] [place] [address] [place] [address] PCP - General Family Medicine 10/23/21 documented as of this encounter
--- OUTSIDE RECORDS SUMMARY | 2024-10-26 16:33 | XMS_ITS | Encounter Summary ---
Author Organization [facility] Address [facility] [place] [address] Care Team Providers Care Vp Clinical Name Role Phone Brittany Wynne MD Primary Care Provider + Reason for Visit * Reason Comments Advice Only Encounter Details Date Type Department Care Team (Late st Contact Info) Description 12/07/2021 1:00 PM EST Office Visit Hematology [place] [phone] Dylan Kendrick MD [facility] [place] [address] Malignant neoplasm of central portion of right breast in female, estrogen receptor positive Social History Tobacco [...] as of this encounter Progress Notes * Dylan Kendrick MD - 12/07/2021 1:00 PM EST Gena Morales is a 56-year-old woman who returns after right partial mastectomy and sentinel node excision on 11/20/2021. Pathology showed that she had a low grade invasive ductal carcinoma that was 8 mm in diameter resected with widely negative margins. The nearest margin was 7 mm away. She was ER positive HER-2 negative. 5 sentinel nodes were negative. I placed my incision on her right lateral inferior mammary fold. She now returns for a check. She feels well. On physical exam both of her incisions are healed very nicely. There is no sign of infection or hematoma. She does have some mild pink disc coloration of her breast; this is not centered around or involving either of her incisions and is not tender or warm. I think that its most likely just some edema rather than cellulitis. There is no skin follicle pitting. Impression: Gena is recovering well from partial mastectomy sentinel node excision. I recommended she do some breast massage for the mild edema. I gave her a copy of her pathology report and we discussed it. She knows she has an excellent prognosis. She will be receiving adjuvant radiation therapy and hormone therapy. I will plan to see her back in 6 months with a right mammogram to serve as new baseline. Copy to Brittany Wynne documented in this encounter Plan of Treatment Upcoming Encounters Date Type Department Care Team (Late st Contact Info) Description 01/11/2025 1:00 PM EDT Office Visit Radiation Oncology at [address] [phone] Misty Llanos MD [facility] [place] [address] 08/23/2025 1:10 PM EST Appointment Mammography/[place] [phone] Jody Tam [facility] [place] [address] 08/23/2025 2:10 PM EST Office Visit [place] [phone] Jody Tam [facility] [place] [address] documented as of this encounter Visit Diagnoses Diagnosis Malignant neoplasm of central portion of right breast in female, estrogen receptor positive documented in this encounter Care Teams Vp Clinical Relationship Specialty Start Date End Date Brittany Wynne MD [address] [place] [address] [place] [address] PCP - General Family Medicine 10/23/21 documented as of this encounter
--- OUTSIDE RECORDS SUMMARY | 2024-10-26 16:33 | XMS_ITS | Encounter Summary ---
[place] [address] Care Team Providers Care Superintendent Transportation Name Role Phone Brittany Wynne MD Primary Care Provider + Reason for Referral * Consultation (Routine) - Closed Specialty Diagnoses / Procedures Referred By Sandeep palm Referred To Contact Thoracic Surgery Diagnoses Lung nodule Lung nodule Misty Llanos MD [facility] [place] [address] [facility] [address] [place] [phone] Referral ID Status Reason Start Date Expiration Date V isits Requested Visits Authorized [id number] Closed Consult, Test & Treat 07/10/2022 07/10/2023 1 1 Encounter Details Date Type Department Care Team (Late st Contact Info) Description 07/10/2022 4:00 PM EDT TH Visit (TeleHealth) Radiation Oncology at [address] [phone] Misty Llanos MD [facility] [place] [address] Lung nodule Social History Tobacco Use Types [...] Progress Notes * Misty Llanos MD - 07/10/2022 4:00 PM EDT Discussion w/Gena about yesterday's CT ch showing new CATHERINE nodule. She reports worsening asthma & COPD over the past 5 mos. She was seen in ED & [facility] today for breathing difficulty. She has been seen in past by Dr. Logan, corporate banking officer @ [facility], today called her office & expects a return call w/in 2 days. I recommended PET/CT & Thoracic Surgery consult & she is amenable. Will also notify Dr. Logan's office of CATHERINE nodule. Patient verbally consents to this telephone visit and understands that this visit may be billed, similar to a clinic office visit. I provided care to the patient today via telephone call. The total time associated with this visit was 15 minutes. documented in this encounter Plan of Treatment Upcoming Encounters Date Type Department Care Team (Late st Contact Info) Description 01/11/2025 1:00 PM EDT Office Visit Radiation Oncology at [address] [phone] Misty Llanos MD [facility] [place] [address] 08/23/2025 1:10 PM EST Appointment Mammography/[place] [address] Jody Tam, [facility] [place] [address] 08/23/2025 2:10 PM EST Office [place] [address] Jody Tam [facility] [place] [address] Scheduled Referrals Name Type Priority Associated Diagnoses Orde r Schedule Amb Ref To Thoracic Surgery Outpatient Referral Routine Lung nodule Ordered: 07/10/2022 documented as of this encounter Visit Diagnoses Diagnosis Lung nodule Solitary pulmonary nodule documented in this encounter Care Teams Superintendent Transportation Relationship Specialty Start Date End Date Brittany Wynne MD [address] [place] [address] [place] [address] PCP - General Family Medicine 10/23/21 documented as of this encounter
--- OUTSIDE RECORDS SUMMARY | 2024-10-26 16:33 | XMS_ITS | Encounter Summary ---
Author Organization [facility] Address [facility] [place] [address] Care Team Providers Care Track Machine Operator Repairer Name Role Phone Brittany Wynne MD Primary Care Provider + Encounter Details Date Type Department Care Team (Late st Contact Info) Description 01/23/2022 Notes Only Radiation Oncology at [address] [phone] Janell Sung, RN Social History Tobacco Use Types Packs/Day [...] as of this encounter Progress Notes * Janell Mccullough RN - 01/23/2022 10:04 AM EDT Called patient to follow up to see how she is feeling after COVID 19 dx. States she is still feeling fatigued and has a headache. Reports that she took her temp this AM which was 98.8F. States she then took Tylenol as she has a headache. Reports that she has not noticed a fever. Still feels too unwell to come in for Radiation tx. States that she is hoping she will feel well enough to tx on and Saturday of this week. Discussed that Nursing would check in on her tomorrow to see how she wasfeeling, and if she felt she would be ready to resume tx on . documented in this encounter Plan of Treatment Upcoming Encounters Date Type Department Care Team (Late st Contact Info) Description 01/11/2025 1:00 PM EDT Office Visit Radiation Oncology at [address] [phone] Misty Llanos MD [facility] [place] [address] 08/23/2025 1:10 PM EST Appointment Mammography/[place] [address] Jody Tam, [facility] [address] 08/23/2025 2:10 PM EST Office Visit General Surgery at [facility] [place] [address] Jody Tam, [facility] [address] documented as of this encounter Visit Diagnoses Not on filedocumented in this encounter Care Teams Track Machine Operator Repairer Relationship Specialty Start Date End Date Brittany Wynne MD [address] [place] [address] [place] [address] PCP - General Family Medicine 10/23/21 documented as of this encounter
--- OUTSIDE RECORDS SUMMARY | 2024-10-26 16:33 | XMS_ITS | Encounter Summary ---
Author Organization [facility] Address [facility] [place] [address] Care Team Providers Care Newspaper Photographer Name Role Phone Brittany Wynne MD Primary Care Provider + Encounter Details Date Type Department Care Team (Late st Contact Info) Description 07/11/2022 Telephone Radiation Oncology at [address] [phone] Taylor Bridges, RN Social History [...] Telephone Encounter - Taylor Bridges RN - 07/11/2022 4:36 PM EDT Message left on voice mail that patient's CT shows a new CATHERINE nodule and Dr. Llanos is asking if they can help with input regarding how best to obtain a tissue diagnosis. I added that Dr. Llanos has ordered a PET/CT and also referred patient to Thoracic Surgery at . I left our clinic contact information and request for call back. * Telephone Encounter - Taylor Bridges RN - 07/11/2022 4:35 PM EDT ----- Message from Misty Llanos MD sent at 07/10/2022 4:41 PM EDT ----- [facility] Rad Onc Sec, PET/CT @ [facility], angelika; please schedule TOV w/me w/in a few days after PET/CT appt. Referral to Thoracic Surg @ -Sid w/in 2 wks. Taylor, will you please call Dr. Jacqui Logan's office (dairy machine operator farmworker in [facility] area who has seen Gena in past) & tell nurse/incoming freight clerk that CT ch showsa new CATHERINE nodule & can she help with input regarding how best to obtain tissue diagnosis? Gena called Dr. Logan's office today & left voicemail asking for appointment w/her. Misty documented in this encounter Plan of Treatment Upcoming Encounters Date Type Department Care Team (Late st Contact Info) Description 01/11/2025 1:00 PM EDT Office Visit Radiation Oncology at [address] [phone] Misty Llanos MD [facility] [place] [address] 08/23/2025 1:10 PM EST Appointment Mammography/[place] [phone] Jody Tam [facility] [place] [address] 08/23/2025 2:10 PM EST Office [place] [phone] Jody Tam [facility] [place] [address] documented as of this encounter Visit Diagnoses Not on filedocumented in this encounter Care Teams Newspaper Photographer Relationship Specialty Start Date End Date Brittany Wynne MD [address] [place] [address] [place] [address] PCP - General Family Medicine 10/23/21 documented as of this encounter
--- OUTSIDE RECORDS SUMMARY | 2024-10-26 16:33 | XMS_ITS | Encounter Summary ---
Author Organization [facility] [place] [address] Care Team Providers Care Datacap Developer Name Role Phone Brittany Wynne MD Primary Care Provider + Encounter Details Date Type Department Care Team (Late st Contact Info) Description 12/07/2021 Notes Only [place] [phone] Alicia Gupta, TELECOMMUNICATION OPERATOR Social History Tobacco Use Types Packs/Day Years [...] of this encounter Progress Notes * Alicia Gupta MSW - 12/07/2021 2:27 PM EST I'm able to check in with pt, Gena, while she is here for oncology consultation with Dr. Goldman. Gena presents with stable mood and pleasant affect, and warm demeanor. She reports s/p healing has been smooth and she is seeing Dr. Kendrick today to review some recent redness in the area. She feels encouraged that her prognosis is very good and there is no need for chemotherapy at this time. 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 We further review that she has her Advance Directives prepared but forgot to bring them today. We plan for her to bring them during next f/u with Dr. Goldman, and review together plus sign/notarize as needed. I will continue to be available to Gena throughout tx and recovery. Completed today: Brief assessment Advance care planning documented in this encounter Plan of Treatment Upcoming Encounters Date Type Department Care Team (Late st Contact Info) Description 01/11/2025 1:00 PM EDT Office Visit Radiation Oncology at [address] [phone] Misty Llanos MD [facility] RADIATION ONCOLOGY [place] [id number] 08/23/2025 1:10 PM EST Appointment Mammography/DXA at [place] [phone] Jody Tam, [facility] [place] [address] 08/23/2025 2:10 PM EST Office [place] [phone] Jody Tam [facility] [place] [address] documented as of this encounter Visit Diagnoses Not on filedocumented in this encounter Care Teams Datacap Developer Relationship Specialty Start Date End Date Brittany Wynne MD [address] [place] [address] [place] [address] PCP - General Family Medicine 10/23/21 documented as of this encounter
--- OUTSIDE RECORDS SUMMARY | 2024-10-26 16:33 | XMS_ITS | Encounter Summary ---
Author Organization [facility] Address [facility] [place] [address] Care Team Providers Care Engine Testing Supervisor Name Role Phone Brittany Wynne MD Primary Care Provider + Encounter Details Date Type Department Care Team (Late st Contact Info) Description 11/24/2021 11:00 AM EST Telephone Hematology/Oncology at [address] [phone] Nilam Jiang, [facility] DR HEMATOLOGY [place] [address] Social History Tobacco Use Types Packs/Day Years [...] Telephone Encounter - Nilam Jiang RD - 11/27/2021 9:00 AM EST See other encounter from today 11/24. documented in this encounter Plan of Treatment Upcoming Encounters Date Type Department Care Team (Late st Contact Info) Description 01/11/2025 1:00 PM EDT Office Visit Radiation Oncology at [address] [phone] Misty Llanos MD [facility] [place] [address] 08/23/2025 1:10 PM EST Appointment Mammography/[place] [phone] Jody Tam APRN [facility] [place] [address] 08/23/2025 2:10 PM EST Office [place] [address] Jody Tam APRN [facility] [place] [address] documented as of this encounter Visit Diagnoses Not on filedocumented in this encounter Care Teams Engine Testing Supervisor Relationship Specialty Start Date End Date Brittany Wynne MD [address] [place] [address] [place] [address] PCP - General Family Medicine 10/23/21 documented as of this encounter
--- OUTSIDE RECORDS SUMMARY | 2024-10-26 16:33 | XMS_ITS | Encounter Summary ---
Author Organization [facility] Address [facility] [place] [address] Care Team Providers Care Javascript Application Developer Name Role Phone Brittany Wynne MD Primary Care Provider + Encounter Details Date Type Department Care Team (Late st Contact Info) Description 01/30/2022 Telephone Radiation Oncology at [address] [phone] Taylor Bridges, RN Social History [...] place to sleep or slept in a nursing home (including now)? No 11/06/2021 Sex and Gender Information Value Date Recorded Sex Assigned at Female 10/16/2021 7:15 PM EST Gender Identity Female 10/16/2021 7:15 PM EST Sexual Orientation Straight 10/16/2021 7: 15 PM EST documented as of this encounter Miscellaneous Notes * Telephone Encounter - Taylor Bridges RN - 01/30/2022 8:43 AM EDT Patient reports that she picked up a 48 hour bug from her grand daughter who is now feeling better and returning to daycare. Ketty says that she turned off her phone yesterday because she felt somiserable with nausea and vomiting which started Saturday night around midnight. She has also had a bit of diarrhea and headache. No fevers. Today she is no longer vomiting but continues to have nausea, Tolerating saltine crackers and water. Is planning to contact her PCP today. Is not planning on coming in today for treatment but hopes that she feels well enough to come in tomorrow. I let her know that I will update Dr. Llanos which I will do with this note and asked her to keep us posted regarding her status. She is agreeable to this plan. * Telephone Encounter - Taylor Bridges RN - 01/30/2022 8:43 AM EDT ----- Message from Nilam Nicolas sent at 01/30/2022 8:17 AM EDT ----- Can you try ketty today she is still not feeling well and will not be in for radiation [phone] documented in this encounter Plan of Treatment Upcoming Encounters Date Type Department Care Team (Late st Contact Info) Description 01/11/2025 1:00 PM EDT Office Visit Radiation Oncology at [address] [phone] Misty Llanos MD [facility] [place] [address] 08/23/2025 1:10 PM EST Appointment Mammography/[place] [phone] Jody Tam, [facility] [place] [address] 08/23/2025 2:10 PM EST Office [place] [phone] Jody Tam, [facility] [address] documented as of this encounter Visit Diagnoses Not on filedocumented in this encounter Care Teams Javascript Application Developer Relationship Specialty Start Date End Date Brittany Wynne MD [address] [place] [address] [place] [address] PCP - General Family Medicine 10/23/21 documented as of this encounter
--- OUTSIDE RECORDS SUMMARY | 2024-10-26 16:33 | XMS_ITS | Encounter Summary ---
[place] [address] Care Team Providers Care Compliance Analyst Name Role Phone Brittany Wynne MD Primary Care Provider + Encounter Details Date Type Department Care Team (Latest Contact Info) Description 06/27/2022 10:15 AM EDT - 06/27/2022 11:59 PM EDT Hospital Encounter Mammography/[place] [phone] Malignant neoplasm of central portion of right breast in female, estrogen receptor positive Discharge Disposition: Home Social History Tobacco Use [...] Sig Dispensed Refills Start Date End Date guaiFENesin ER (Mucinex) 600 mg Tablet Extended [...] nebulization every 4 hours as needed. 10/07/2021 fluticasone-umeclidiniu m-vilanterol (Trelegy Ellipta) 200-62.5-25 mcg Inhale 1 puff into the lungs daily. 09/07/2022 budesonide (Pulmicort) 0.5 mg/2 mL Suspension for Nebulization Take 0.5 mg by nebulization daily. 09/07/2022 Advair HFA 230-21 mcg/actuation HFA Aerosol Inhaler 03/16/2022 09/07/2022 emollient base (CREAM BASE TOP) Apply topically. Remedy Phytoplex Moisturizer. Apply to area of radiation twice a day but no less than 2 hours before a treatment. 09/03/2022 Spiriva with HandiHaler 18 mcg Capsule, w/Inhalation Device 10/19/2021 09/03/20 albuteroL 90 mcg/actuation HFA Aerosol Inhaler 10/02/2021 09/07/2022 documented as of this encounter Plan of Treatment Upcoming Encounters Date Type Department Care Team (Late st Contact Info) Description 01/11/2025 1:00 PM EDT Office Visit Radiation Oncology at [address] [phone] Misty Llanos MD [facility] DR [place] [address] 08/23/2025 1:10 PM EST Appointment Mammography/[place] [phone] Jody Tam [facility] [place] [address] 08/23/2025 2:10 PM EST Office [place] [phone] Jody Tam [facility] [place] [address] documented as of this encounter Procedures Procedure Name Priority Date/Time Associated Diagnosis Comments MAMMO DIAGNOSTIC CAD AND EMERY BILATERAL Routine 06/27/2022 11:40 AM EDT Malignant neoplasm of central portion of right breast in female, estrogen receptor positive documented in this encounter Results * Mammo Diagnostic CAD and Emery Bilateral (06/27/2022 11:40 AM EDT) Anatomical Region Laterality Modality Breast Bilateral Mammography Narrative 06/27/2022 5:45 PM EDT EXAMINATION: MAMMO DIAGNOSTIC CAD AND EMERY BILATERAL REASON FOR EXAM: Screening. History of right breast cancer. New baseline status post right lumpectomy. TECHNIQUE: CC, MLO, and RCXXL views were obtained of the bilateral breast. Computer aided detection was used. 3D tomosynthesis images were obtained in addition to 2D images. COMPARISON: The study is compared with prior images, including prior mammograms, MRI breast 10/23/21, needle localization right breast mammogram 11/20/2021. FINDINGS: Breast density:? Right breast: There is anticipated postsurgical density and distortion in the right breast. No suspicious masses, clustering microcalcifications, or areas of suspicious architectural distortion are identified. Left breast: There are no suspicious masses, suspicious microcalcifications, or areas of architectural distortion. CONCLUSION: No mammographic evidence of malignancy. RECOMMENDATION: Routine high risk annual screening. Right: BI-RADS CATEGORY 2: BENIGN FINDINGS Left: BI-RADS Category 1: Negative I have personally reviewed the image(s) and the resident's interpretation and agree with the findings, Juli Almaraz MD at 06/27/2022 5:45 PM Thank you for letting us participate in the care of this patient. ??If you are a health care provider and have any questions regarding this report, please contact the number below. ??For patients who have questions please contact the health personal care attendant that requested your imaging first. ? Electronically signed by: Juli Almaraz MD, [facility] ([phone]), at 06/27/2022 5:45 PM Dylan Kendrick MD IMG MAMMO ORDERABLES documented in this encounter Visit Diagnoses Diagnosis Malignant neoplasm of central portion of right breast in female, estrogen receptor positive documented in this encounter Care Teams Compliance Analyst Relationship Specialty Start Date End Date Brittany Wynne MD [address] [place] [address] [place] [address] PCP - General Family Medicine 10/23/21 documented as of this encounter
--- OUTSIDE RECORDS SUMMARY | 2024-10-26 16:33 | XMS_ITS | Encounter Summary ---
Author Organization [facility] Address [facility] [place] [address] Care Team Providers Care Superintendent Sanitation Name Role Phone Brittany Wynne MD Primary Care Provider + Encounter Details Date Type Department Care Team (Late st Contact Info) Description 01/22/2022 Telephone Radiation Oncology at [address] [phone] Mary Zabala, RN Social History Tobacco Use Types Packs/Day [...] encounter Miscellaneous Notes * Telephone Encounter - Mary Zabala RN - 01/22/2022 11:39 AM EDT ----- Message from Radha Kaplan sent at 01/22/2022 10:52 AM EDT ----- Regarding: Rose Mariemargothrubina Gena called because she had previously tested positive for covid and is very congested. She is looking to take Sudafed to relieve some of her nasal congestion. She spoke with a nurse at her PCP and they said they were fine with her taking it but that she should reach out to our office to make sure it doesn't interfere with her treatment. She is looking to take the meds REY. Can you please give her a call at [phone] RN Phone Note Diagnosis: Right breast cancer XRT Received: 4 Fx, 1064 cGy. Telephone call to patient. Reports that she is overall doing ok but still not feeling well and symptomatic. Tested positive for COVID on Friday 01/19 after developing fever night. States that she didn't feel very good on and off all week last week but tested Saturday after having fever. Reports that she is taking Tylenol/Ibuprofen throughout the day for headache. Reports that her head is pretty plugged up. When I cough it feels like my head will explode. Reports that her cough is occasional, no shortness of breath or respiratory distress. Wonders if she can take Sudafed for the head congestion. Advised that she can take Sudafed for symptom relief and that it does not interfere with the radiation she is receiving. Patient continues to feel unwell and does not feel that she can make it in for radiation today. Discussed with Dr. Llanos. She would like patient to hold Tyl/Ibuprofen x 24 hours - if no fever and symptoms improving she would like patient to return to clinic on Wed for resumption of XRT. Called patient back with recommendations from Dr. Llanos. Patient will try not to take Tyl/Ibuprofen but has been taking because headache is so bad. Asked that if she does take, to take temp before taking anything. She agrees to try to withhold taking anything but if needed, will take Temp. Nursingwill call her tomorrow to check in and see how she is feeling. documented in this encounter Plan of Treatment Upcoming Encounters Date Type Department Care Team (Late st Contact Info) Description 01/11/2025 1:00 PM EDT Office Visit Radiation Oncology at [address] [phone] Misty Llanos MD [facility] [place] [address] 08/23/2025 1:10 PM EST Appointment Mammography/[place] [phone] Jody Tam [facility] [place] [address] 08/23/2025 2:10 PM EST Office [place] [phone] Jody Tam APRN [facility] [place] [address] documented as of this encounter Visit Diagnoses Not on filedocumented in this encounter Care Teams Superintendent Sanitation Relationship Specialty Start Date End Date Brittany Wynne MD [address] [place] [address] [place] [address] PCP - General Family Medicine 10/23/21 documented as of this encounter
--- OUTSIDE RECORDS SUMMARY | 2024-10-26 16:33 | XMS_ITS | Encounter Summary ---
Author Organization [facility] Address [facility] [place] [address] Care Team Providers Care Social Media Sr Strategy Manager Name Role Phone Brittany Wynne MD Primary Care Provider + Reason for Visit * Reason Comments On Treatment Visit Encounter Details Date Type Department Care Team (Late st Contact Info) Description 02/13/2022 3:45 PM EDT Office Visit Radiation Oncology at [address] [phone] Misty Llanos MD [facility] [place] [address] Hormone receptor positive malignant neoplasm of right [...] place to sleep or slept in a halfway (including now)? No 11/06/2021 Sex and Gender Information Value Date Recorded Sex Assigned at Female 10/16/2021 7:15 PM EST Gender Identity Female 10/16/2021 7:15 PM EST Sexual Orientation Straight 10/16/2021 7: 15 PM EST documented as of this encounter Patient Instructions * Patient Instructions* Misty Llanos MD - 02/13/2022 4:43 PM EDT Gena Chang. Your last radiotherapy will be on M., 02/19/22. Continue phytoplex to irradiated area @ least once/day. 1% hydrocortisone cream (available over the counter without a prescription) can be applied up to 4 times/day for itchiness within irradiated area. Do not use a straight/regular razor on your right underarm. An electric razor is ok. Do not expose the irradiated area to sun, cover it with clothing. Do not swim in chlorinated water. Saltwater or freshwater is ok. Do not expose irradiated area to hot tub water. Hot bath/shower is ok. Followup with me T., 03/20/22 @ 3. When I see you that day we will discuss scheduling a CT of chest to be done in June @ [facility] for followup of right lung nodule. You may resume supplements day after last radiotherapy. Misty documented in this encounter Progress Notes * Misty Llanos MD - 02/13/2022 3:45 PM EDT ON TREATMENT VISIT NOTE Date of service: 02/13/2022 Identification: Gena Morales is currently undergoing radiation therapy at [facility] for right breast cancer, IDC, low gr, ER+NM+, Her2-, s/p lumpectomy & SNB, pT1b pN0. Considerationfor endocrine tx after xrt completion. Pt. is here today during treatment for an on treatment visit. Planned Total RT Dose: 52.56 Gy Current Fraction: 15 of 20 (seen prior to today's xrt) Current treatment dose: 3990 cGy in 15 fractions (seen prior to today's xrt). Anticipated total dose: 5256 cGy in 20 fractions. Evaluation of Port Verification Films: done, please see ARIA record for details SUBJECTIVE: Changes in medical condition: Increased R breast pinkening, no pain, no itchiness. Fatigue: None; X Mild; Moderate; Severe; Disabling Skin Reaction: No; X Yes, over breast Nausea: X None; Without change in eating habits; With decreased oral intake; With inadequate caloric intake; Vomiting: X No; Yes Pain (scale 1-10): 0 OBJECTIVE: Physical examination: Well-appearing Mode of transportation: x Ambulatory; Wheelchair/Scooter; Walker/Cane; Other Radiation dermatitis: No; X Yes, moderately brisk erythema, skin intact. LE Edema: x No; Yes Gen: A&Ox3, NAD. Amb stable. Imagin12/19/21 Dx'ic Rad Interp CTsim: 6 mm indeterminate RLL pulmonary nodule. 6 mos low rad dosenoncontrast CT chest suggested. Assessment (including toxicity, grade, and attribution): None; X Fatigue; Nausea/Vomiting; Other: Mild skin rxn. Recommendation on continuing course of radiation therapy: Continue xrt. Completes xrt 02/19/22. Care of irrad'd skin discussed. Rtc T., 03/20/22. Discussed CTsim finding of RLL nodule & she agrees w/followup CT ch @ [facility] in Jun. She also informs me that she stopped smoking 2 mos ago & has apptw/hand box folder @ [facility] in February. documented in this encounter Plan of Treatment Upcoming Encounters Date Type Department Care Team (Late st Contact Info) Description 01/11/2025 1:00 PM EDT Office Visit Radiation Oncology at [address] [phone] Misty Llanos MD [facility] [address] 08/23/2025 1:10 PM EST Appointment Mammography/[place] [phone] Jody Tam, [facility] [place] [address] 08/23/2025 2:10 PM EST Office [place] [phone] Jody Tam, [facility] [place] [address] documented as of this encounter Visit Diagnoses Diagnosis 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
--- OUTSIDE RECORDS SUMMARY | 2024-10-26 16:33 | XMS_ITS | Encounter Summary ---
Author Organization [facility] Address [facility] [place] [address] Care Team Providers Care Warrant Clerk Name Role Phone Brittany Wynne MD Primary Care Provider + Encounter Details Date Type Department Care Team (Late st Contact Info) Description 04/27/2022 Telephone Hematology/Oncology at [address] [phone] Brayan Prater Social History Tobacco Use Types Packs/Day Years [...] encounter Miscellaneous Notes * Telephone Encounter - Brayan Prater - 04/27/2022 4:52 PM EDTSummary: CT order Routed CT order to [facility] and asked them to schedule in Jun and to please let us know when it has been scheduled. documented in this encounter Plan of Treatment Upcoming Encounters Date Type Department Care Team (Late st Contact Info) Description 01/11/2025 1:00 PM EDT Office Visit Radiation Oncology at [address] [phone] Misty Llanos MD [facility] [address] 08/23/2025 1:10 PM EST Appointment Mammography/[place] [phone] Jody Tam APRN [facility] [place] [address] 08/23/2025 2:10 PM EST Office Visit [place] [phone] Jody Tam APRN [facility] [place] [address] documented as of this encounter Visit Diagnoses Not on filedocumented in this encounter Care Teams Warrant Clerk Relationship Specialty Start Date End Date Brittany Wynne MD [address] [place] [address] [place] [address] PCP - General Family Medicine 10/23/21 documented as of this encounter
--- OUTSIDE RECORDS SUMMARY | 2024-10-26 16:33 | XMS_ITS | Encounter Summary ---
Author Organization Count Includes [facility] Address [facility] [place] [address] Care Team Providers Care Special Events Fundraiser Name Role Phone Brittany Wynne MD Primary Care Provider + Encounter Details Date Type Department Care Team (Late st Contact Info) Description 12/19/2021 Notes Only Radiation Oncology at [address] [phone] Shreya Santiago, STAVE MACHINE TENDER OFFICE OF CARE MANAGEMENT Social History Tobacco Use Types Packs/Day Years [...] as of this encounter Progress Notes * Shreya Santiago, STAVE MACHINE TENDER - 12/19/2021 11:14 AM EST Reason for Referral: Brief assessment of social and emotional needs. Met with Gena after her simtoday to introduce myself and role of executive secretary social welfare to assess/address barriers to getting to and through treatments; address support needs and connect with community services and resources as needed.Reviewed intake note from NATHAN Rivera. Family/Social Supports: Pt identified her son and his girlfriend as her primary support. She also identified her ex-. She has a daughter who lives her ex- but she has challenges of her own. Pt has a sister in [place] and a friend in [facility] who will be back for the summer. Pt one year ago today which is also his birthday. Living Situation/Daily Activities/Transportation: Pt manages his daily chores and activities. Her son, his girlfriend and 1.5 yr old daughter lives with pt. She does drive but is concerned about the weather and road conditions. She plans to talk with her son and ex- about helping with rides if needed. 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 Her son is her partner and isable to maintain the work. She is able to manage her financial obligations. She has Federal BCBS and Medicaid for insurance. Advance Directives: Pt is working on her advance directive and plans to bring her document is for witnessing. Utilization of Community Resources: None at this time. Adjustment to Illness/Mental Health Concerns: Today is the one year anniversary of her 's . It is also his birthday. She talked about the challenges of the last year with this loss. Offered support. Pt is supported by her family and friends. Identified Needs: Pt did not identify any specific needs today. Referrals: None at this time. Social Work Interventions: Brief assessment Supportive Counseling Advance care planning Plan: Informed pt of STAVE MACHINE TENDER availability and contact information. Will follow to assess/address psychosocial needs. DENA Grayson, PANTOGRAPHER, OSW-C Medical Staff Credentialing Coordinator [facility] documented in this encounter Plan of Treatment Upcoming Encounters Date Type Department Care Team (Late st Contact Info) Description 01/11/2025 1:00 PM EDT Office Visit Radiation Oncology at [address] [phone] Misty Llanos MD [facility] [place] [address] 08/23/2025 1:10 PM EST Appointment Mammography/[place] [phone] Jody Tam APRN [facility] [place] [address] 08/23/2025 2:10 PM EST Office [place] [phone] Jody Tam APRN [facility] [place] [address] documented as of this encounter Visit Diagnoses Not on filedocumented in this encounter Care Teams Special Events Fundraiser Relationship Specialty Start Date End Date Brittany Wynne MD [address] [place] [address] [place] [address] PCP - General Family Medicine 10/23/21 documented as of this encounter
--- OUTSIDE RECORDS SUMMARY | 2024-10-26 16:33 | XMS_ITS | Encounter Summary ---
Author Organization [facility] Address [facility] [place] [address] Care Team Providers Care Traffic Reporter Name Role Phone Brittany Wynne MD Primary Care Provider + Encounter Details Date Type Department Care Team (Late st Contact Info) Description 01/24/2022 Telephone Hematology Oncology at [address] [phone] Mary Zabala, RN Social History [...] Telephone Encounter - Mary Zabala RN - 01/24/2022 10:40 AM EDT RN phone call to patient to check in and see how she is feeling in regards to recent COVID positivediagnosis. Gena reports that she is feeling a little better today. Still feels spacey as heck. My head feels like it's on another planet. Reports infrequent cough, congestion has also improved. Terrible headache yesterday but that is better so far today also. No fevers. Would like to plan to resume radiation tomorrow, 01/25. Instructed patient to come at end of the day - arrive at 4:50-4:55 and call clinic to let us know that she has arrived. Therapy staff will meet in hallway and bring back through back hallway to avoidwaiting rooms. Same plan in place for Friday 01/26 and 01/29, which will be day 10 from positive test on Friday 01/19 (day 0). Gena verbalized understanding and agreement with plan. . Therapy staff updated and agree with plan documented in this encounter Plan of Treatment Upcoming Encounters Date Type Department Care Team (Late st Contact Info) Description 01/11/2025 1:00 PM EDT Office Visit Radiation Oncology at [address] [phone] Misty Llanos MD [facility] [place] [address] 08/23/2025 1:10 PM EST Appointment Mammography/DXA at [place] [phone] Jody Tam, [facility] [place] [address] 08/23/2025 2:10 PM EST Office Visit General Surgery at [place] [phone] Jody Tam, [facility] [place] [place] [address] documented as of this encounter Visit Diagnoses Not on filedocumented in this encounter Care Teams Traffic Reporter Relationship Specialty Start Date End Date Brittany Wynne MD [address] [place] [address] [place] [address] PCP - General Family Medicine 10/23/21 documented as of this encounter
--- OUTSIDE RECORDS SUMMARY | 2024-10-26 16:33 | XMS_ITS | Encounter Summary ---
Author Organization [facility] Address [facility] [place] [address] Care Team Providers Care Cement Crusher Operator Name Role Phone Brittany Wynne MD Primary Care Provider + Reason for Visit * Consultation (Routine) - Closed Specialty Diagnoses / Procedures Referred By Sandeep palm Referred To Contact Radiation Oncology Diagnoses Malignant neoplasm of lower-outer quadrant of right female breast, unspecified estrogen receptor status Procedures Simulation for Radiation Therapy Planning Misty Llanos MD [facility] [place] [address] [facility] Rad Onc Office [address] [place] [phone] Referral ID Status Reason Start Date Expiration Date V isits Requested Visits Authorized [id number] Closed Consult, Test & Treat 11/13/2021 11/13/2022 21 21 Encounter Details Date Type Department Care Team (Latest Contact Info) Description 12/19/2021 10:00 AM EST Ancillary Appointment Radiation Oncology at [address] [phone] Misty Llanos MD [facility] [place] [address] Hormone receptor positive malignant neoplasm of right [...] this encounter Patient Instructions * Patient Instructions* Taylor Bridges RN - 12/19/2021 10:08 AM EST Information for Patients receiving radiation therapy to the Breast Approximately two weeks after your first treatment, you may begin to experience side effects causedby the radiation. These effects may continue throughout the treatment period and not start improving until 1-2 weeks after treatment is completed. Your doctor will tell you which side effects you aremost likely to experience, when you will notice them and how long they might last. It is important to follow the appropriate instructions to minimize your discomfort. Skin Care Wash skin in the treatment field with lukewarm water and mild or moisturizing, unscented soap daily. Blot skin dry with a soft towel. Do not apply any ointment, salve, deodorant, perfume, cologne, cosmetic or self- remedy to the treatment area while you are undergoing radiation and for 1-2 weeks following treatment. An all natural deodorant with no aluminum can be used if necessary. Moisturizing cream will be provided for you. This may be used in the treatment area once daily beginning on your first treatment day. Do not apply 2 hours before your radiation treatments. As dryness/redness develop you can use this more often. Do not rub or scratch the skin in the treatment field. This includes shaving unless you use an electric razor. If your skin becomes dry or itchy, tell your nurse or doctor. If necessary, your doctor may order a medication specifically for this problem. Do not use hot water bottles, heating lights, electric heating pads, or hot packs to the treatment area. Keep treated areas out of the sun throughout the treatment period. Be careful of sun exposure to the treatment field for one year following treatment. Please use SPF> 30 to all exposed areas of skin and limit sun exposure. Avoid tight fitting clothes. We would prefer that you wear a cotton t-shirt instead of a bra. If you are unable to go without a bra please wear a soft cotton bra without underwire. Examine your skin in the treatment area daily and watch for changes. If you cannot reach the whole treatment field ask a family member to look at it and apply cream as needed. Be careful to keep the area under your breast clean and dry as this area can get irritated first. You will meet with your nurse and doctor weekly. They will check your skin and help you with any side effects you are having. Please ask to see the nurse if you have concerns in between these days. During the last weeks of treatment you may notice some peeling of skin and/or a moist reaction. Be sure to let us know if this happens so we can provide you with further skin care instructions.. Continue to stay active, walk daily, eat healthy foods and drink several glasses of water each day. Fatigue You may notice that you feel unusually tired towards the end of treatment. This is not unusual. We recommend that you pace your activities and plan for rest periods to avoid becoming over-tired. Feel free to direct any questions or concerns you may have related to your treatment to your nurse or doctor. [facility] Radiation Oncology Our normal business hours are: Saturday - Saturday 8 AM to 5 PM [place], [place], [place] For emergent situations after hours please call for either location and ask for the Radiation Oncologist battery container inspector. documented in this encounter Progress Notes * Taylor Bridges RN - 12/19/2021 10:00 AM EST Radiation Oncology Simulation Note Gena Morales is here for radiation planning , undergoing a simulation to the right breast for breast cancer treatment . Usual radiation oncology routines and purpose of on treatment visits were explained. Remedy Phytoplex cream provided and instructions for use reviewed Anticipatory Guidance: Please see AVS. Barriers to Treatment/ Compliance issues identified: None identified. Patient confirms they can have no difficulties lying flat. pre- medication plan made: none needed. Referrals: [facility] [employer] per routine * Misty Llanos MD - 12/19/2021 10:00 AM EST Here for sim. 11/20/21 NLOC R breast lumpectomy w/incision along inferior mammary fold laterally & deep aspectof excision @ pec major muscle & serratus muscle a little lateral to that, specimen mmg & SNB. Path: IDC, gr 1, 8.5 mm, RM-, 5 lymph nodes (all neg, 0/5), pT1b pN0. 12/07/21 Dr. Goldman, consider endocrine tx after xrt completion. 12/07/21 Dr. Kendrick, rtc 6 mos w/mmg. Exam today shows mild central pinkening of R breast, well healed R breast lumpectomy incision in lateral R inframammary fold & well healed SNB incision in R axilla. A: Breast ca, R, IDC, gr 1, ER+AR+, Her2-, s/p lumpectomy & SNB, pT1b pN0. P: Xrt to R breast. Sim: Breast bd immobilization; flat bbs on R breast lumpectomy scar; CT through chest; 3D xrt planned. She tolerated sim well, w/o problem. Tx Plan: 3D xrt. Start xrt 1-2 wks. documented in this encounter Plan of Treatment Upcoming Encounters Date Type Department Care Team (Late st Contact Info) Description 01/11/2025 1:00 PM EDT Office Visit Radiation Oncology at [address] [phone] Misty Llanos MD [facility] [place] [address] 08/23/2025 1:10 PM EST Appointment Mammography/[place] [phone] Jody Tam, [facility] [place] [address] 08/23/2025 2:10 PM EST Office [place] [address] Jody Tam [facility] [place] [address] documented as of this encounter Visit Diagnoses Diagnosis 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
--- OUTSIDE RECORDS SUMMARY | 2024-10-26 16:33 | XMS_ITS | Encounter Summary ---
Author Organization [facility] Address [facility] [place] [address] Care Team Providers Care Derrick Boat Lever Operator Name Role Phone Brittany Wynne MD Primary Care Provider + Reason for Visit * Reason Comments Follow-up HX RT BRCA Encounter Details Date Type Department Care Team (Late st Contact Info) Description 06/27/2022 2:30 PM EDT Office Visit [place] [phone] Dylan Kendrick MD [facility] [place] [address] Malignant neoplasm of right breast in female, estrogen receptor positive, unspecified site of breast Social History Tobacco Use Types Packs/Day [...] Progress Notes * Dylan Kendrick MD - 06/27/2022 2:30 PM EDT Gena Morales is a 56-year-old woman who [...] her right lateral inferior mammary fold. She received adjuvant XRT. Discussed an AI with Dr Goldman and is holding off on that for now. She has poor lung function. She now returns for a check. She has not felt any breast masses. 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 On physical exam there is a 3 X 2 cm smooth thickening just superior to her incision in her right lateral infra-mammary fold. No other right or left breast masses. No axillary adenopathy. Full ROM right arm, no arm edema. Bilateral mammo to my eye looks new baseline benign. Impression: No evidence of breast cancer recurrence. She will reach out to Dr Goldman when she is ready to start the AI. Plan: I will plan to see her back in 1 year with a bilateral mammogram. documented in this encounter Plan of Treatment Upcoming Encounters Date Type Department Care Team (Late st Contact Info) Description 01/11/2025 1:00 PM EDT Office Visit Radiation Oncology at [address] [phone] Misty Llanos MD [facility] [place] [address] 08/23/2025 1:10 PM EST Appointment Mammography/[place] [phone] Jody Tam [facility] [place] [address] 08/23/2025 2:10 PM EST Office Visit [place] [phone] Jody Tam [facility] [place] [address] documented as of this encounter Results * [...] who have questions please contact the health memory care director that requested your imaging first. ? Electronically signed by: Shira Zamorano MD, [facility] ([phone]), at 07/22/2023 10:06 AM Narrative 07/22/2023 10:06 [...] estrogen receptor positive, unspecified site of breast Malignant neoplasm of right breast in female, estrogen receptor positive, unspecified site of breast documented in this encounter Care Teams Derrick Boat Lever Operator Relationship Specialty Start Date End Date Brittany Wynne MD [address] [place] [address] [place] [address] PCP - General Family Medicine 10/23/21 documented as of this encounter
--- OUTSIDE RECORDS SUMMARY | 2024-10-26 16:33 | XMS_ITS | Encounter Summary ---
Author Organization [facility] Address [facility] [place] [address] Care Team Providers Care Pulmonary Function Technologist Name Role Phone Brittany Wynne MD Primary Care Provider + Encounter Details Date Type Department Care Team (Late st Contact Info) Description 01/15/2022 Telephone Radiation Oncology at [address] [phone] Taylor Bridges, RN Social History [...] Telephone Encounter - Taylor Bridges RN - 01/15/2022 10:21 AM EDT Background: Dr. Llanos updated regarding positive covid case in patient home, her negative home covid test this morning as well as her waking during the night feeling feverish. Dr. Llanos advised that patient not come in to clinic and get PCR test that can be scheduled through my . Telephone call to patient. Confirmed that a household member did test positive for covid and was notified over the weekend. This household member works in a [employer] facility and has routine testing done. She has also been working with a resident that has covid. I instructed Gena regarding Dr. Llanos' recommendations above. Patient is agreeable to not come in to clinic pending PCR results. She prefers and plans to contact her PCP to schedule and will request results to go to Dr. Llanos as well. Dr. Llanos updated with this note. * Telephone Encounter - Taylor Brigdes RN - 01/15/2022 10:18 AM EDT ----- Message from Sumi Gutierrez sent at 01/15/2022 8:47 AM EDT ----- Gena called in this morning and mentioned that she has a positive cause of Covid in her household and wondered what our rules are about coming in for treatment. She tested Negative with at home test this morning but woke up in the middle of next a little feverish, she wondered if she should come to treatment. [phone] documented in this encounter Plan of Treatment Upcoming Encounters Date Type Department Care Team (Late st Contact Info) Description 01/11/2025 1:00 PM EDT Office Visit Radiation Oncology at [address] [phone] Misty Llanos MD [facility] [place] [address] 08/23/2025 1:10 PM EST Appointment Mammography/DXA at [place] [phone] Jody Tam [facility] [place] [address] 08/23/2025 2:10 PM EST Office Visit General Surgery at [place] [phone] Jody Tam INSEAM LEVELER [facility] [place] [address] documented as of this encounter Visit Diagnoses Not on filedocumented in this encounter Care Teams Pulmonary Function Technologist Relationship Specialty Start Date End Date Brittany Wynne MD [address] [place] [address] [place] [address] PCP - General Family Medicine 10/23/21 documented as of this encounter
--- OUTSIDE RECORDS SUMMARY | 2024-10-26 16:33 | XMS_ITS | Encounter Summary ---
Author Organization [facility] Address [facility] [place] [address] Care Team Providers Care Er Manager Name Role Phone Brittany Wynne MD Primary Care Provider + Encounter Details Date Type Department Care Team (Late st Contact Info) Description 01/09/2022 5:15 PM EDT Office Visit Radiation Oncology at [address] [phone] Julio César Patel MD [facility] [place] [address] Hormone receptor positive malignant neoplasm of right [...] Reading Time Taken Comments Blood Pressure 135/88 01/09/2022 5:44 PM EDT Pulse 78 01/09/2022 5:44 PM EDT Temperature 36.8 ??C (98.3 ??F) 01/09/2022 5:44 PM ED T Respiratory Rate 18 01/09/2022 5:44 PM EDT Oxygen Saturation 100% 01/09/2022 5:44 PM EDT Inhaled Oxygen Concentration - - Weight 65.4 kg (144 lb 3.2 oz) 01/09/2022 5:44 P M EDT Height - - Body Mass Index 30.35 12/07/2021 10:59 AM EST documented in this encounter Progress Notes * Julio César Patel MD - 01/09/2022 5:15 PM EDT ON TREATMENT VISIT NOTE Gena Morales is a 56 y.o. female with Stage IA right breast cancer, adjuvant radiotherapy Current treatment dose: 2.6 Gy in 1 fractions. Anticipated total dose: 52.56 Gy in 20 fractions. Concomitant Therapy: N Evaluation of Port Verification Films: PORT films have been reviewed, please see ARIA for details. Changes in medical condition Pain: denies Skin: no issues Objective: Vitals: 01/09/22 1744 BP: 135/88 Pulse: 78 Resp: 18 Temp: 36.8 ??C (98.3 ??F) TempSrc: Temporal SpO2: 100% Weight: 65.4 kg (144 lb 3.2 oz) SKIN: no erythema Assessment: No toxicity, treatment started within the last week. TREATMENT RESPONSE:No change Plan: ?? Continue RT per prescription ?? Skin: Jeans cream QD ?? Pain control: no intervention needed at this time documented in this encounter Plan of Treatment Upcoming Encounters Date Type Department Care Team (Late st Contact Info) Description 01/11/2025 1:00 PM EDT Office Visit Radiation Oncology at [address] [phone] Misty Llanos MD [facility] [place] [address] 08/23/2025 1:10 PM EST Appointment Mammography/[place] [phone] Jody Tam [facility] [place] [address] 08/23/2025 2:10 PM EST Office [place] [phone] Jody Tam [facility] [place] [address] documented as of this encounter Visit Diagnoses Diagnosis 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
--- OUTSIDE RECORDS SUMMARY | 2024-10-26 16:33 | XMS_ITS | Encounter Summary ---
Author Organization [facility] Address [facility] [place] [address] Care Team Providers Care Milk Wagon Driver Name Role Phone Brittany Wynne MD Primary Care Provider + Reason for Visit * Reason Comments On Treatment Visit Encounter Details Date Type Department Care Team (Late st Contact Info) Description 02/06/2022 3:15 PM EDT Office Visit Radiation Oncology at [address] [phone] Misty Llanos MD [facility] DR [place] [address] Hormone receptor positive malignant neoplasm of right [...] Reading Time Taken Comments Blood Pressure 117/81 02/06/2022 3:25 PM EDT Pulse 82 02/06/2022 3:25 PM EDT Temperature 36.3 ??C (97.4 ??F) 02/06/2022 3:25 PM ED T Respiratory Rate 16 02/06/2022 3:25 PM EDT Oxygen Saturation 96% 02/06/2022 3:25 PM EDT Inhaled Oxygen Concentration - - Weight 66.5 kg (146 lb 9.6 oz) 02/06/2022 3:25 P M EDT Height - - Body Mass Index 30.86 12/07/2021 10:59 AM EST documented in this encounter Progress Notes * Misty Llanos MD - 02/06/2022 3:15 PM EDT ON TREATMENT VISIT NOTE Date of service: 02/06/2022 Identification: Gena Morales is currently undergoing radiation therapy at [facility] for right breast cancer Pt. is here today during treatment for an on treatment visit. Mild pinkening of R breast. Planned Total RT Dose: 52.56 Gy Current Fraction: 11 of 20 Current treatment dose: 2926 cGy in 11 fractions. Anticipated total dose: 5256 cGy in 20 [...] Other Radiation dermatitis: No; X Yes, mild erythema LE Edema: x No; Yes Gen: A&Ox3, NAD. Amb stable. Imagin12/19/21 Dx'ic Rad Interp CTsim: 6 mm indeterminate RLL pulmonary nodule. 6 mos low rad dosenoncontrast CT chest suggested. Assessment (including toxicity, grade, and attribution): None; X Fatigue; Nausea/Vomiting; Other: Mild skin rxn. Recommendation on continuing course of radiation therapy: Continue xrt. Discussed CTsim finding of RLL nodule & she agrees w/followup CT ch @ [facility] in Jun. She also informs me that she stopped smoking 2 mos ago & has appt w/vacuum drier tender @ [facility] in February. documented in this encounter Plan of Treatment Upcoming Encounters Date Type Department Care Team (Late st Contact Info) Description 01/11/2025 1:00 PM EDT Office Visit Radiation Oncology at [address] [phone] Misty Llanos MD [facility] RADI[place] [address] 08/23/2025 1:10 PM EST Appointment Mammography/[place] [address] Jody Tam APRN [facility] GENER[place] [address] 08/23/2025 2:10 PM EST Office [place] [address] Jody Tam APRN [facility] GENER[place] [address] documented as of this encounter Visit Diagnoses Diagnosis Hormone receptor positive malignant neoplasm of right breast documented in this encounter Care Teams Milk Wagon Driver Relationship Specialty Start Date End Date Brittany Wynne MD [address] [place] [address] [place] [address] PCP - General Family Medicine 10/23/21 documented as of this encounter
--- OUTSIDE RECORDS SUMMARY | 2024-10-26 16:33 | XMS_ITS | Encounter Summary ---
Author Organization [facility] Address [facility] [place] [address] Care Team Providers Care Test Tube Maker Name Role Phone Brittany Wynne MD [...] Expiration Date Visits Re quested Visits Authorized [id number] 1 1 Encounter Details Date Type Department Care Team (Latest Contact Info) Description 11/20/2021 9:10 AM EST - 11/20/2021 10:14 AM EST Hospital Encounter [place] [address] Dylan Kendrick MD [facility] [place] [address] Malignant neoplasm of right breast in female, [...] PM EDT Office Visit Radiation Oncology at [address] [phone] Misty Llanos MD [facility] [place] [address] 08/23/2025 1:10 PM EST Appointment Mammography/[place] [address] Jody Tam GEOTHERMAL SHEET METAL WORKER [facility] [place] [address] 08/23/2025 2:10 PM EST Office Visit [place] [address] Jody Tam GEOTHERMAL SHEET METAL WORKER [facility] [place] [address] documented as of this encounter Procedures Procedure Name Priority Date/Time Associated Diagnosis Comments MAMMO SPECIMEN RIGHT Routine 11/20/2021 12:01 PM EST Malignant neoplasm of right breast in female, estrogen receptor positive, unspecified site of breast documented in this encounter Results * Mammo Specimen Right (11/20/2021 12:01 PM EST) Anatomical Region Laterality Modality Breast Right Mammography Impressions 11/20/2021 12:04 PM EST Positive specimen x-ray as described. Results phoned to the operating surgeon intraoperatively. Thank you for letting us participate in the care of this patient. ??If you are a health care provider and have any questions regarding this report, please contact the number below. ??For patients who have questions please contact the health healthcare receptionist that requested your imaging first. ? Electronically signed by: Bettina Chong MD, [facility] ([phone]), at 11/20/2021 12:04 PM Narrative 11/20/2021 12:04 PM EST EXAMINATION: Specimen x-ray INDICATION: Intraoperative specimen image for adequacy of lesion and/or clip removal TECHNIQUE: A single projection specimen x-ray from the right breast is obtained superimposed on alphanumeric grid COMPARISON: This is correlated with preoperative imaging FINDINGS: The intact wire, clip and mass are contained within the specimen. There are no close margins. Dylan Kendrick MD IMG MAMMO ORDERABLES documented in this encounter Visit Diagnoses Diagnosis Malignant neoplasm of right breast in female, estrogen receptor positive, unspecified site of breast documented in this encounter Care Teams Test Tube Maker Relationship Specialty Start Date End Date Brittany Wynne MD [address] [place] [address] [place] [address] PCP - General Family Medicine 10/23/21 documented as of this encounter
--- OUTSIDE RECORDS SUMMARY | 2024-10-26 16:33 | XMS_ITS | Encounter Summary ---
Author Organization [facility] Address [facility] [place] [address] Care Team Providers Care Incident Response Specialist Name Role Phone Brittany Wynne MD Primary Care Provider + Encounter Details Date Type Department Care Team (Latest Contact Info) Description 06/27/2022 10:15 AM EDT - 06/27/2022 11:59 PM EDT Hospital Encounter Mammography/[place] [address] Marianela Goldman MD [facility] DR [place] [address] Malignant neoplasm of lower-outer quadrant of right breast of female, estrogen receptor positive; At risk of fracture due to osteoporosis Discharge Disposition: Home Social History Tobacco Use [...] EDT Office Visit Radiation Oncology at [address] [phone] Misty Llanos MD [facility] [place] [address] 08/23/2025 1:10 PM EST Appointment Mammography/[place] [phone] Jody Tam APRN [facility] [place] [place] [address] 08/23/2025 2:10 PM EST Office [place] [phone] Jody Tam APRN [facility] [place] [place] [address] documented as of this encounter Procedures Procedure Name Priority Date/Time Associated Diagnosis Comments DXA CENTRAL SPINE, HIP, AND/OR WHOLE BODY (GENERIC) Routine 06/27/2022 10:56 AM EDT Malignant neoplasm of lower-outer quadrant of right breast of female, estrogen receptor positive At risk of fracture due to osteoporosis documented in this encounter Results * DXA Central Spine, [...] BMD measurements and plots are available in [employer] under the imaging tab. Paper copies will be sent to providers without E- access. If you have received this report without the data sheet and do not have access to [employer], please contact Radiology Corporate Account Executive at [phone] Saturday thru Saturday 8am-4pm. ? Bone Density Report ? Name: ?Gena Morales Age: ? 56 Sex: ? Female Ethnicity: ? White Date of : 1965 Exam Date: June 27, 2022 Accession number: [id number] Bone Density: Region ? BMD ?T-score ??Z-score [...] who have questions please contact the health behavioral health care coordinator that requested your imaging first. ? Narrative [...] Lumbar spine, WHO diagnosis: ??osteoporosis Procedure Note Suha Boston MD - 06/27/2022 EXAMINATION: DXA CENTRAL SPINE, [...] BMD measurements and plots are available in ENearwayunder the imaging tab. Paper copies will be sent to providers without [employer] access.If you have received this report without the data sheet and do not haveaccess to [employer], please contact Radiology Corporate Account Executive at [phone] Saturday 8am-4pm. Bone Density Report Name: Gena Morales Age: 56 Sex: Female Ethnicity: White Date of : 1965 Exam Date: June 27, 2022 Accession number: [id number] Bone Density: Region BMD T-score Z-score AP [...] patients who have questions please contactthe health behavioral health care coordinator that requested your imaging first. Marianela Goldman MD IMG DEXA ORDERABLES documented in this encounter Visit Diagnoses Diagnosis Malignant neoplasm of lower-outer quadrant of right breast of female, estrogen receptor positive At risk of fracture due to osteoporosis documented in this encounter Care Teams Incident Response Specialist Relationship Specialty Start Date End Date Brittany Wynne MD [address] [place] [address] [place] [address] PCP - General Family Medicine 10/23/21 documented as of this encounter
--- OUTSIDE RECORDS SUMMARY | 2024-10-26 16:33 | XMS_ITS | Encounter Summary ---
Author Organization [facility] [place] [address] Care Team Providers Care Thread Marker Name Role Phone Brittany Wynne MD Primary Care Provider + Encounter Details Date Type Department Care Team (Late st Contact Info) Description 07/11/2022 Telephone Hematology [place] [phone] Ther[place]Apurva Social History Tobacco Use Types Packs/Day Years [...] EDT Office Visit Radiation Oncology at [address] [phone] Misty Llanos MD [facility] [place] [address] 08/23/2025 1:10 PM EST Appointment Mammography/[place] [phone] Jody Tam LEAD RECREATION ASSISTANT [facility] [place] [address] 08/23/2025 2:10 PM EST Office Visit [place] [phone] Jody Tam APRN [facility] [place] [place] [address] documented as of this encounter Visit Diagnoses Not on filedocumented in this encounter Care Teams Thread Marker Relationship Specialty Start Date End Date Brittany Wynne MD [address] [place] [address] [place] [address] PCP - General Family Medicine 10/23/21 documented as of this encounter
--- OUTSIDE RECORDS SUMMARY | 2024-10-26 16:33 | XMS_ITS | Encounter Summary ---
Author Organization [facility] Address [facility] [place] [address] Care Team Providers Care Metal Mold Dresser Name Role Phone Brittany Wynne MD Primary Care Provider + Encounter Details Date Type Department Care Team (Late st Contact Info) Description 01/29/2022 Telephone Radiation Oncology at [address] [phone] Taylor Bridges, RN Social History [...] Telephone Encounter - Taylor Bridges RN - 01/29/2022 5:28 PM EDT Telephone call to patient. No answer. Left message again on identifiable voice mail regarding intent of call as well as information the Dr. Llanos advises that she contact PCP if continued nausea/vomiting. I also left clinic contact information as well as how to reach warehouse production worker provider after hours. Plan: Will call again tomorrow morning. * Telephone Encounter - Taylor Bridges RN - 01/29/2022 12:13 PM EDT No answer. Message left on identifiable voice mail regarding intent of call for status update and assessment as well as clinic contact information and request for call back. Plan: Return call to patient later today if we do not hear back from her. * Telephone Encounter - Taylor Bridges RN - 01/29/2022 12:09 PM EDT ----- Message from Nilam Nicolas sent at 01/29/2022 7:59 AM EDT ----- Can someone call ketty morales she will not be in for radiation today due to vomiting documented in this encounter Plan of Treatment Upcoming Encounters Date Type Department Care Team (Late st Contact Info) Description 01/11/2025 1:00 PM EDT Office Visit Radiation Oncology at [address] [phone] Misty Llanos MD [facility] [place] [address] 08/23/2025 1:10 PM EST Appointment Mammography/[place] [phone] Jody Tam, [facility] [place] [place] [address] 08/23/2025 2:10 PM EST Office [place] [phone] Jody Tam, [facility] [place] [address] documented as of this encounter Visit Diagnoses Not on filedocumented in this encounter Care Teams Metal Mold Dresser Relationship Specialty Start Date End Date Brittany Wynne MD [address] [place] [address] [place] [address] PCP - General Family Medicine 10/23/21 documented as of this encounter
--- OUTSIDE RECORDS SUMMARY | 2024-10-26 16:33 | XMS_ITS | Encounter Summary ---
Author Organization [facility] Address [facility] [place] [address] Care Team Providers Care Chief Warden Name Role Phone Brittany Wynne MD Primary Care Provider + Encounter Details Date Type Department Care Team (Late st Contact Info) Description 01/19/2022 Telephone Radiation Oncology at [address] [phone] Veronica Acevedo, RN Social History [...] Telephone Encounter - Veronica Acevedo RN - 01/19/2022 4:20 PM EDT Radiation Oncology Nurse Telephone Note [facility] [place] [place] ----- Message from Radha Kaplan sent at 01/19/2022 8:41 AM EDT ----- Regarding: Tested Positive and Symptomatic Gena called this morning to let us know that she was feeling feverish and off last night so woke up this morning to test herself and she has tested positive for covid. This week she has been dealing with exposures to direct family members (son tested positive earlier this week). I let the Rts know. Can you please follow up with her today? [phone] is her callback Thank you! 01/19/22 4:13- 4:20 Telephone call to pt. She states she feels like she has the flu; body aches, and some slight nausea. She is taking tylenol and ibuprofen. She is breathing ok and has no upper respiratory complaints. She is eating and drinking well. But right now wants to stay in bed. She has been vaccinated last year. Dr Llanos informed of this via this note. Nursing will touch base with her later next week to see how she is doing. documented in this encounter Plan of Treatment Upcoming Encounters Date Type Department Care Team ([facility] Contact Info) Description 01/11/2025 1:00 PM EDT Office Visit Radiation Oncology at [address] [phone] Misty Llanos MD [facility] [place] [address] 08/23/2025 1:10 PM EST Appointment Mammography/[place] [phone] Jody Tam [facility] [place] [address] 08/23/2025 2:10 PM EST Office [place] [phone] Jody Tam [facility] [place] [address] documented as of this encounter Visit Diagnoses Not on filedocumented in this encounter Care Teams Chief Warden Relationship Specialty Start Date End Date Brittany Wynne MD [address] [place] [address] [place] [address] PCP - General Family Medicine 10/23/21 documented as of this encounter
--- OUTSIDE RECORDS SUMMARY | 2024-10-26 16:33 | XMS_ITS | Encounter Summary ---
Author Organization [facility] Address [facility] [place] [address] Care Team Providers Care Raw Juice Weigher Name Role Phone Brittany Wynne MD Primary Care Provider + Encounter Details Date Type Department Care Team (Late st Contact Info) Description 07/09/2022 9:25 PM EDT Ancillary Procedure Radiology Library at [facility] [place] [address] Misty Llanos MD [facility] [place] [address] Social History Tobacco Use Types Packs/Day Years [...] EDT Office Visit Radiation Oncology at [address] [phone] Misty Llanos MD [facility] [place] [address] 08/23/2025 1:10 PM EST Appointment Mammography/[place] [phone] Jody Tam APRN [facility] [place] [address] 08/23/2025 2:10 PM EST Office [place] [phone] Jody Tam APRN [facility] [place] [address] documented as of this encounter Procedures Procedure Name Priority Date/Time Associated Diagnosis Comments FILM LIBRARY STORAGE ONLY CT CHEST Routine 07/09/2022 9:23 PM EDT documented in this encounter Results * Film Library- Storage Only CT Chest (07/09/2022 9:23 PM EDT) Narrative [facility] - 07/09/2022 9:23 PM EDT This exam is auto-finalizing. It's purpose is for storage only. Misty Llanos MD IMG FILM LIBRARY ORD ERABLES [place], [place] documented in this encounter Visit Diagnoses Not on filedocumented in this encounter Care Teams Raw Juice Weigher Relationship Specialty Start Date End Date Brittany Wynne MD [address] [place] [address] [place] [address] PCP - General Family Medicine 10/23/21 documented as of this encounter
--- OUTSIDE RECORDS SUMMARY | 2024-10-26 16:34 | XMS_ITS | Encounter Summary ---
Author Organization [facility] Address [address] [place] [id number] Care Team Providers Care Clinical Academic Allergist Name Role Phone Unknown, Provider Primary Care Provider Unava ilable Encounter Details Date Type Department Care Team (Late st Contact Info) Description 06/04/2022 Lab Requisition [facility] Pathology & Laboratory Medicine - [facility] [address] [place] [address] Outr Resulting Lab, Provider Social History Tobacco Use Types Packs/Day Years Used Date Smoking Tobacco: Never Assessed Comments Unknown Sex and Gender Information Value Date Recorded Sex Assigned at Not on file Legal Sex Female 18:12 EST Gender Identity Not on file Sexual Orientation Not on file documented as of this encounter Plan of Treatment Not on file documented as of this encounter Procedures Procedure Name Priority Date/Time Associated Diagnosis Comments IGE Routine 06/04/2022 12:00 EDT documented in this encounter Results * (ABNORMAL) IGE (06/04/2022 12:00 EDT) IgE 538(H) <158 IU/mL 06/06/2022 9:36 EDT [facility] Blood VENOUS BLOOD / Unknown 06/04/2022 12:00 EDT 06/04/2022 21:20 EDT us Provider Outr Resulting Lab CHEMISTRY & BLOOD GA S ORDERABLES Final Result [facility] [address] [place] [address] documented in this encounter Visit Diagnoses Not on filedocumented in this encounter Care Teams Clinical Academic Allergist Relationship Specialty Start Date End Date Unknown, Provider, PCP - General 07/26/17 documented as of this encounter
--- OUTSIDE RECORDS SUMMARY | 2024-10-26 16:34 | XMS_ITS | Encounter Summary ---
Author Organization [facility] [place] [address] Care Team Providers Care Aeronautical Test Engineer Name Role Phone Unavailable Primary Care Provider Unavailabl e Encounter Details Date Type Department Care Team (Late Contact Info) Description 08/21/2021 Ancillary Procedure Radiology Library at [facility] [place] [phone] Bettina Chong MD [facility] [place] [address] Social History Tobacco Use Types Packs/Day Years Used Date Smoking Tobacco: Never Assessed Sex and Gender Information Value Date Recorded Sex Assigned at Female 10/16/2021 7:15 PM EST Gender Identity Female 10/16/2021 7:15 PM EST Sexual Orientation Straight 10/16/2021 7: 15 PM EST documented as of this encounter Plan of Treatment Upcoming Encounters Date Type Department Care Team (Late st Contact Info) Description 01/11/2025 1:00 PM EDT Office Visit Radiation Oncology at [address] [phone] Misty Llanos MD [facility] RADIATION [place] [address] 08/23/2025 1:10 PM EST Appointment Mammography/[place] [phone] Jody Tam APRN [facility] [place] [address] 08/23/2025 2:10 PM EST Office Visit General Surgery at [facility] [place] [address] Jody Tam, [facility] [address] documented as of this encounter Procedures Procedure Name Priority Date/Time Associated Diagnosis Comments FILM LIBRARY-STORAGE ONLY US BREAST Routine 08/21/2021 12:00 AM EDT documented in this encounter Results * Film Library Storage Only US Breast (08/21/2021 12:00 AM EDT) Narrative [facility] - 09/22/2021 8:43 AM EST This exam is auto-finalizing. It's purpose is for storage only. Bettina Chong MD IMG FILM LIBRARY O RDERABLES [place], [place] documented in this encounter Visit Diagnoses Not on filedocumented in this encounter
--- OUTSIDE RECORDS SUMMARY | 2024-10-26 16:34 | XMS_ITS | Encounter Summary ---
[place] [address] Care Team Providers Care Tow Car Driver Name Role Phone Unavailable Primary Care Provider Unavailabl e Encounter Details Date Type Department Care Team (Late st Contact Info) Description 10/03/2021 Patient Outreach Hematology [place] [phone] Maddi Price, RN Social History Tobacco Use Types Packs/Day Years Used Date Smoking Tobacco: Never Assessed Overall Financial Resource Strain (CARDIA) Answe r Date Recorded How hard is it for you to pa y for the very basics like food, housing, medical care, and heating? Somewhat hard 10/03/2021 PRAPARE - Transportation Answer Date Re corded In the past 12 months, has l ack of transportation kept you from medical appointments or from getting medications? No 09/20 In the past 12 months, has l ack of transportation kept you from meetings, work, or from getting things needed for daily living? No 10/03/2021 Sex and Gender Information Value Date Recorded Sex Assigned at Female 10/16/2021 7:15 PM EST Gender Identity Female 10/16/2021 7:15 PM EST Sexual Orientation Straight 10/16/2021 7: 15 PM EST documented as of this encounter Progress Notes * Maddi Price, RN - 10/03/2021 6:16 PM EST [facility] Nurse Navigation Patient Care Plan for the Comprehensive Breast Program(CBP) Reason for call: contacted Gena Morales via phone to assess for nurse navigation services, per CBP notification, and to see if she had any questions [facility] Introduced her to the CBP. Gena Morales is a 55 y.o. female with newly diagnosed ER/MI+/HER2- right breast invasive ductalcarcinoma (right breast biopsy 09/07/2021 at [facility]). Rosalinda sounds positive and has support. Her son and his fiance live with her in a large house and large property. They can help with bills. 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 She plans to come unaccompanied to appointments. Her son can help her with rides as needed. She appears to be coping ok and is eager to meet with a breast surgeon to determine a treatment plan. She states finances are tight. She has a little pension from her and uses this to pay her BC/BS bill. Shequalified for Medicaid and is concerned about whether it will pay all her hospital/outpatient bills. Rosalinda states she has had a bad year. She lost her in December 2020 to liver cancer. He had livercirrhosis from hepatitis C. Rosalinda has been struggling with a bad cold and has asthma and COPD. 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 She is concerned about anesthesia and her lung function and will speak with Dr. Kendrick her consultation. Menopausal status: LMP at age 44 or 45 [facility] is active. Plan: Appointments for breast MRI and consultation with a breast surgeon have been scheduled. She was introduced to the CBP and told she would receive information about her diagnosis and treatment for her review (the Breast Cancer Treatment Handbook; VIKTORIYA Early-Stage: Invasive Breast Cancer program provided and viewed). Plan to meet with Gena on the day of her consult apt. She understands that Leelee Gupta, DENA, TAM and I are available to her for support/concerns. Addressed her questions and encouraged her to contact me with any additional questions or concerns.She has our contact information. FAMILY HISTORY Patient is adopted and FH not entirely known. Her biological sister told her that as far as she knows is there is no FH of breast or ovarian cancer. There were 6 children in her family and her mother was institutionalized. Laterality:Right Is this a recurrence:No Family history of breast cancer:unknown Family history of ovarian cancer: unknown Personal history or breast cancer:No Method of detection: Mammogram Method of diagnosis: Ultrasound Core Biopsy Identified Barriers: Patient comments or concerns: She has some concerns regarding finances and questions about what herinsurance will cover. She understands she will meet with Leelee on the day of her surgical consultation. documented in this encounter Plan of Treatment Upcoming Encounters Date Type Department Care Team (Late st Contact Info) Description 01/11/2025 1:00 PM EDT Office Visit Radiation Oncology at [address] [phone] Misty Llanos MD [facility] [place] [address] 08/23/2025 1:10 PM EST Appointment Mammography/[place] [address] Jody Tam [facility] [place] [address] 08/23/2025 2:10 PM EST Office [place] [address] Jody Tam [facility] [place] [address] documented as of this encounter Visit Diagnoses Not on filedocumented in this encounter
--- OUTSIDE RECORDS SUMMARY | 2024-10-26 16:34 | XMS_ITS | Encounter Summary ---
Author Organization [facility] [place] [address] Care Team Providers Care Metal Bed Assembler Name Role Phone Unavailable Primary Care Provider Unavailabl e Encounter Details Date Type Department Care Team (Latest Contact Info) Description 09/22/2021 4:05 PM EST Ancillary Procedure Radiology Library at [facility] [place] [phone] Dylan Kendrick MD [facility] [place] [address] Malignant neoplasm of right breast in female, [...] EDT Office Visit Radiation Oncology at [address] [phone] Misty Llanos MD [facility] [place] [address] 08/23/2025 1:10 PM EST Appointment Mammography/[place] [phone] Jody Tam, [facility] [place] [address] 08/23/2025 2:10 PM EST Office Visit General Surgery at [facility] [place] [address] Jody Tam, [facility] [place] [address] documented as of this encounter Procedures Procedure Name Priority Date/Time Associated Diagnosis Comments REQUEST FOR 2ND READ MAMMO Routine 09/22/2021 3:47 PM EST Malignant neoplasm of right breast in female, estrogen receptor positive, unspecified site of breast documented in this encounter Results * Request for 2nd read Mammo (09/22/2021 3:47 PM EST) Anatomical Region Laterality Modality SO Impressions 09/25/2021 12:34 PM EST IMPRESSION: Right lesion 1 - Known Right breast malignancy is a 1.1 cm irregular mass in the lower outer breast at 8:00, 6 cm from the nipple. Post procedure right mammogram demonstrates the biopsy marker clip along the superior margin of the mass (MLO view); the mass and clip are not included on the cc view; consider Right XCCL ??mammogram to confirm clip placement. Definitive treatment. Right lesion 2 - ??Indeterminate group of microcalcifications in the lower central breast at 6:00, 9 cm from the nipple, for which additional imaging is recommended. Left: No mammographic evidence of malignancy. RECOMMENDATION: Additional diagnostic imaging Right breast calcifications for further evaluation. Consider right XCCL to confirm biopsy clip placement at Right lesion 1. Right lesion 1: BI-RADS Category 6: Known Biopsy-Proven Malignancy. Right lesion 2: BI-RADS Category 0: Incomplete-Need Additional Imaging Evaluation and/or Prior Mammograms for Comparison. Left: BI-RADS Category 1: Negative. Please note: The interpretation of the [facility] Breast Imaging Radiologist subspecialist may differ from the original radiologists interpretation. This is usually not due to a deficiency of the original interpreting radiologist, rather due to the greater skill level afforded by sub-specialization in the field and/or reasonable variations in interpretations. If you have a concern regarding the [facility] interpretation you may contact the [facility] [employer] Dean Office at . Thank you for letting us participate in the care of this patient. ??If you are a health care provider and have any questions regarding this report, please contact the number below. ??For patients who have questions please contact the health child care lead teacher that requested your imaging first. ? Electronically signed by: Juli Almaraz MD, [facility] ([phone]), at 09/25/2021 12:34 PM Narrative 09/25/2021 12:34 PM EST INTERPRETATION OF OUTSIDE BREAST IMAGING I have been asked to consult on this patient by Dr. Dylan Kendrick ??because he/she believes a review of this study may change or alter the care of this patient. STUDIES FROM: [facility], [place], [place]. TYPE OF EXAM Bilateral mammogram 08/11/2021, diagnostic right mammogram 08/14/2021, right breast ultrasound 08/21/2021, ultrasound-guided right breast biopsy and post clip right mammogram 09/07/2021. CLINICAL HISTORY: NEW DX Right BREAST CANCER, invasive adenocarcinoma right breast. I believe a reinterpretation of this exam may alter care of Patient. Yes; What Modality is the exam? Diagnostic; Body Part (please add comments as necessary): BREAST; Sending Institution [facility]; Date of exam 09/07/2021. FINDINGS: Right Lesion 1 - The right mammogram demonstrated a 1.0 cm irregular mass in the lower outer quadrant at 8:00, 9 cm from the nipple. Ultrasound of the mass demonstrate a 1.1 cm hypoechoic mildly irregular mass lower outer quadrant at 8:00, 6 cm from the nipple. The mass underwent ultrasound-guided biopsy, surgical pathology adenocarcinoma, invasive. Post clip right mammogram demonstrates the biopsy marker clip located along the superior margin of the mass on the MLO view; only partially imaged on the CC view. Right Lesion 2- ??The right breast demonstrates group of microcalcifications in the lower central breast at 6:00, 8 cm from the nipple. Left: There are no suspicious microcalcifications, masses or areas of distortion. The pattern is stable. Breast density: There are scattered areas of fibroglandular density. Procedure Note Juli Almaraz MD - 09/25/2021 INTERPRETATION OF OUTSIDE BREAST IMAGING I have been asked to consult on this patient by Dr. Dylan Leesause he/she believes a review of this study may change or alter the care ofthis patient. STUDIES FROM: [place], [place]. TYPE OF EXAM Bilateral mammogram 08/11/2021, diagnostic right mammogram 08/14/2021, right breast ultrasound 08/21/2021, ultrasound-guided rightbreast biopsy and post clip right mammogram 09/07/2021. CLINICAL HISTORY: NEW DX Right BREAST CANCER, invasive adenocarcinomaright breast. I believe a reinterpretation of this exam may alter care ofPatient. Yes; What Modality is the exam? Diagnostic; Body Part (please add commentsas necessary): BREAST; Sending Institution [facility]; Date ofexam 09/07/2021. FINDINGS: Right Lesion 1 - The right mammogram demonstrated a 1.0 cm irregular massin the lower outer quadrant at 8:00, 9 cm from the nipple. Ultrasound of themass demonstrate a 1.1 cm hypoechoic mildly irregular mass lower outer quadrantat 8:00, 6 cm from the nipple. The mass underwent ultrasound-guided biopsy, surgical pathology adenocarcinoma, invasive. Post clip right mammogram demonstrates the biopsy marker clip located along the superior margin ofthe mass on the MLO view; only partially imaged on the CC view. Right Lesion 2- The right breast demonstrates group ofmicrocalcifications in the lower central breast at 6:00, 8 cm from the nipple. Left: There are no suspicious microcalcifications, masses or areas of distortion. The pattern is stable. Breast density: There are scattered areas of fibroglandular density. IMPRESSION IMPRESSION: Right lesion 1 - Known Right breast malignancy is a 1.1 cm irregular massin the lower outer breast at 8:00, 6 cm from the nipple. Post procedure right mammogram demonstrates the biopsy marker clip alongthe superior margin of the mass (MLO view); the mass and clip are not includedon the cc view; consider Right XCCL mammogram to confirm clip placement. Definitive treatment. Right lesion 2 - Indeterminate group of microcalcifications in thelower central breast at 6:00, 9 cm from the nipple, for which additional imagingis recommended. Left: No mammographic evidence of malignancy. RECOMMENDATION: Additional diagnostic imaging Right breast calcifications for further evaluation. Consider right XCCL to confirm biopsy clip placement at Right lesion 1. Right lesion 1: BI-RADS Category 6: Known Biopsy-Proven Malignancy. Right lesion 2: BI-RADS Category 0: Incomplete-Need Additional Imaging Evaluation and/or Prior Mammograms for Comparison. Left: BI-RADS Category 1: Negative. Please note: The interpretation of the [facility] BreastImaging Radiologist subspecialist may differ from the original radiologists interpretation. This is usually not due to a deficiency of the original interpreting radiologist, rather due to the greater skill level affordedby sub-specialization in the field and/or reasonable variations ininterpretations. If you have a concern regarding the -H interpretation you may contact the[facility] [employer] Dean Office at . Thank you for letting us participate in the care of this patient. If youare a health care provider and have any questions regarding this report,please contact the number below. For patients who have questions please contactthe health child care lead teacher that requested your imaging first. Dylan Kendrick MD IMG OUTSIDE INTERPRE TATION ORDERABLES documented in this encounter Visit Diagnoses Diagnosis Malignant neoplasm of right breast in female, estrogen receptor positive, unspecified site of breast documented in this encounter
--- OUTSIDE RECORDS SUMMARY | 2024-10-26 16:34 | XMS_ITS | Encounter Summary ---
Author Organization [facility] [place] [address] Care Team Providers Care Pillar Worker Name Role Phone Unavailable Primary Care Provider Unavailabl e Encounter Details Date Type Department Care Team (Late Contact Info) Description 09/07/2021 12:05 AM EST Ancillary Procedure Radiology Library at [facility] [place] [phone] Bettina Chong MD [facility] [place] [address] Social History Tobacco Use Types Packs/Day Years [...] PM EDT Office Visit Radiation Oncology at [address] [phone] Misty Llanos MD [facility] [place] [address] 08/23/2025 1:10 PM EST Appointment Mammography/[place] [phone] Jody Tam APRN [facility] [place] [address] 08/23/2025 2:10 PM EST Office [place] [address] Jody Tam APRN [facility] [place] [address] documented as of this encounter Procedures Procedure Name Priority Date/Time Associated Diagnosis Comments FILM LIBRARY STORAGE ONLY MAMMO Routine 09/07/2021 12:05 AM EST documented in this encounter Results * Film Library- Storage Only Mammo (09/07/2021 12:05 AM EST) Narrative [facility][NOTE 3] - 09/22/2021 8:47 AM EST This exam is auto-finalizing. It's purpose is for storage only. Bettina Chong MD IMG FILM LIBRARY O RDERABLES [place], [place] documented in this encounter Visit Diagnoses Not on filedocumented in this encounter
--- OUTSIDE RECORDS SUMMARY | 2024-10-26 16:34 | XMS_ITS | Encounter Summary ---
Author Organization [facility] [place] [address] Care Team Providers Care Drum Carrier Name Role Phone Unavailable Primary Care Provider Unavailabl e Encounter Details Date Type Department Care Team (Latest Contact Info) Description 09/25/2021 2:52 PM EST - 09/25/2021 11:59 PM EST [place] [phone] Discharge Disposition: Home Social History Tobacco Use [...] Sig Dispensed Refills Start Date End Date montelukast (Singulair) 10 mg Tablet Take 10 mg by mouth nightly. 09/06/2021 Wixela Inhub 500-50 mcg/dose Disk with Device 08/09/2021 documented as of this encounter Plan of Treatment Upcoming Encounters Date Type Department Care Team (Late st Contact Info) Description 01/11/2025 1:00 PM EDT Office Visit Radiation Oncology at [address] [phone] Misty Llanos MD [facility] [place] [address] 08/23/2025 1:10 PM EST Appointment Mammography/[place] [phone] Jody Tam, [facility] [place] [address] 08/23/2025 2:10 PM EST Office Visit [place] [phone] Jody Tam, [facility] [place] [address] documented as of this encounter Procedures Procedure Name Priority Date/Time Associated Diagnosis Comments SURGICAL PATHOLOGY REPORT Routine 09/25/2021 2:53 PM EST documented in this encounter Results * Surgical Pathology Report (09/25/2021 2:53 PM EST) Final Diagnosis [id number] ? Location: OPW The signing pathologist has (i) examined the relevant preparation(s) for the specimen(s) and (ii) rendered or confirmed the diagnosis(es). . ?Surgical Pathology DIAGNOSIS CONSULTATION CASE Outside slide(s) labeled [id number], collection date 09/07/2021 Needle biopsies: ?Right breast, 8 o'clock, 6 cm from nipple Diagnosis: ?Invasive ductal carcinoma ?Low grade, modified SBR score = 5 Microcalcificatio ns: ??N/A ER, FL, and HER2 studies (IHC slides reviewed): ER: Positive (>90%, ??strong ) FL: Positive (>90%, ??strong ) HER2 IHC: ??Negative (Score 1+) Electronically signed by: ?Yolis Giraldo DO Verified: ??09/26/2021 12:42 ??Pathologist Performed at: ??-[facility] [place] Dept. of Pathology, [place], [place] SPECIMEN(S) SUBMITTED CONSULTATION CASE A - 7 slide(s) labeled [id number], collection date 09/07/2021. [id number] Report to: [facility] Surgical Pathology Department [facility], [facility], 2nd Floor [address] [place], [place] [address] CLINICAL INFORMATION Right breast SPECIMEN PROCESSING [facility] ([facility]) pathology slide(s) are reviewed. ??Refer to Diagnosis and Specimen Submitted for specific case information. For the full text of the [facility] report(s) please refer to Non- Documentation Pathology in the electronic health record (eDH). 09/26/2021 12:42 PM EST [facility] Consult Case 09/25/2021 2:53 PM EST 09/25/2021 2:53 PM EST Dylan Kendrick MD PATHOLOGY/CYTOLOGY O [facility] [place] [address] documented in this encounter Visit Diagnoses Not on filedocumented in this encounter
--- OUTSIDE RECORDS SUMMARY | 2024-10-26 16:34 | XMS_ITS | Encounter Summary ---
Author Organization [facility] [place] [address] Care Team Providers Care Physician Neonatology Name Role Phone Unavailable Primary Care Provider Unavailabl e Encounter Details Date Type Department Care Team (Late st Contact Info) Description 09/22/2021 Telephone [place] [address] Paloma Diertich Social History Tobacco Use Types Packs/Day Years Used Date Smoking Tobacco: Never Assessed Sex and Gender Information Value Date Recorded Sex Assigned at Female 10/16/2021 7:15 PM EST Gender Identity Female 10/16/2021 7:15 PM EST Sexual Orientation Straight 10/16/2021 7: 15 PM EST documented as of this encounter Miscellaneous Notes * Telephone Encounter - Paloma Dietrich - 09/22/2021 7:15 AM EST Patient Info: Gena Morales 1965 Attn: Pathology Department From: [facility] [phone] []Urgent [] For Review [] Please Reply []Please Recycle Comments: Please overnight all Pathology slides to include Core Biopsy's and Surgical Path. Slides to include ER/CO & Her2. Mail to: Department of Pathology, [facility], Attn: [place] [address] Fed-Ex # [id number] If questions please call [phone] Notice of Confidentiality: The documents accompanying this FAX transmission cover contain information from [facility] that is confidential and privileged. The information is intended for the use of the individual or entity named on this transmittal sheet. If you are not the intended recipient, be aware that any disclosure, copying, distribution or use of the contents is prohibited. If you have received the FAX in error, please notify us by telephone (collect) immediately to permit us to arrange for the retrieval of the documents at no cost to you documented in this encounter Plan of Treatment Upcoming Encounters Date Type Department Care Team (Late st Contact Info) Description 01/11/2025 1:00 PM EDT Office Visit Radiation Oncology at [address] [address] Misty Llanos MD [facility] [place] [address] 08/23/2025 1:10 PM EST Appointment Mammography/[place] [address] Jody Tam SUPERVISOR CURING ROOM [facility] [place] [address] 08/23/2025 2:10 PM EST Office [place] [address] Jody Tam SUPERVISOR CURING ROOM [facility] [place] [address] documented as of this encounter Visit Diagnoses Not on filedocumented in this encounter
--- OUTSIDE RECORDS SUMMARY | 2024-10-26 16:34 | XMS_ITS | Encounter Summary ---
Author Organization [facility] Address [address] [place] [address] Care Team Providers Care Commercial Loan Manager Name Role Phone Unknown, Provider Primary Care Provider Unava ilable Encounter Details Date Type Department Care Team (Late st Contact Info) Description 02/12/2020 Lab Requisition [facility] Pathology & [place] [address] Unknown, Provider, MD Social History Tobacco Use Types Packs/Day [...] Procedure Name Priority Date/Time Associated Diagnosis Comments ZZCOVID-19 TEST [facility] PCR Today 02/12/2020 13:34 EDT COVID-19 TESTING Routine 02/12/2020 13:3 4 EDT documented in this encounter Results * COVID-19 TEST [facility] PCR (02/12/2020 13:34 EDT) Swab ENTIRE NASOPHARYNX / Unknown 02/12/2020 13:34 EDT 02/12/2020 21:47 EDT us Provider Unknown MICROBIOLOGY - GENERAL ORDER VY Final Result [facility] [address] [place] [address] * COVID-19 TESTING (02/12/2020 13:34 EDT) COVID-19 rt-PCR Result Negative Negative 02/13/2020 13:14 EDT [facility] Comment: Negative results do not preclude 2019-nCoV infection and should not be used as the sole basis for treatment or other patient management decisions. Negative results must be combined with clinical observations, patient history, and epidemiological information. This test has not been FDA cleared or approved. This test has been authorized by FDA under an EUA for use by authorized laboratories. This test has been authorized only for detection of nucleic acid from 2019-nCoV, not for any other viruses or pathogens. This test is only authorized for the duration of the declaration that circumstances exist justifying the authorization of emergency use of in vitro diagnostic tests for detection and/or diagnosis of 2019-nCoV under section 564(b)(1) of Act, 21 U.S.C ?? 360bbb-3(b) (1), unless the authorization is terminated or revoked sooner. Performed on the [employer] Fusion instrument Performing Lab [facility] 02/13/2020 13:14 EDT [facility] Swab ENTIRE NASOPHARYNX / Unknown 02/12/2020 13:34 EDT 02/12/2020 21:47 EDT us Provider Unknown MICROBIOLOGY - GENERAL ORDER VY Final Result [facility] [address] [place] [address] documented in this encounter Visit Diagnoses Not on filedocumented in this encounter Care Teams Commercial Loan Manager Relationship Specialty Start Date End Date Unknown, Provider, PCP - General 07/26/17 documented as of this encounter
--- OUTSIDE RECORDS SUMMARY | 2024-10-26 16:34 | XMS_ITS | Encounter Summary ---
Author Organization [facility] Address [facility] [place] [address] Care Team Providers Care Form Setter/Driver Name Role Phone Brittany Wynne MD Primary [...] Expiration Date Visits Re quested Visits Authorized [id number] 1 1 Encounter Details Date Type Department Care Team (Latest Contact Info) Description 11/20/2021 9:10 AM EST - 11/20/2021 10:14 AM EST Hospital [place] [address] Dylan Kendrick MD [facility] [place] [address] Malignant neoplasm of right breast in female, [...] 08/09/2021 03/20/2022 documented as of this encounter Progress Notes * Janes Haney MD - 11/20/2021 7:38 AM EST Pre-procedure note for needle breast biopsies performed in radiology. Procedure date: Today Procedure type: right breast NLOC and sentinel node injection Allergies: Amoxicillin Medications: Current Outpatient Medications: ??? loratadine (Claritin) 10 mg Tablet, Take 10 mg by mouth daily., Disp: , Rfl: ??? acetaminophen (Tylenol) 500 mg Tablet, Take 1,000 mg by mouth every 6 hours as needed for Pain., Disp: , Rfl: ??? nicotine (Nicoderm CQ) 21 mg/24 hr Patch 24 hr, Change 1 patch on the skin over 24 hrs., Disp: 42 patch, Rfl: 0 ??? albuteroL 90 mcg/actuation HFA Aerosol Inhaler, , Disp: , Rfl: ??? Wixela Inhub 500-50 mcg/dose Disk with Device, , Disp: , Rfl: ??? montelukast (Singulair) 10 mg Tablet, , Disp: , Rfl: ??? ipratropium-albuteroL (Duoneb) 0.5 mg-3 mg(2.5 mg base)/3 mL Solution for Nebulization, , Disp:, Rfl: Anticoagulation status: none stopped on: N/A Imaging reviewed and procedural plan approved by Dr. Janes Haney MD and discussed with attending, Dr. Chong. documented in this encounter Plan of Treatment Upcoming Encounters Date Type Department Care Team (Late st Contact Info) Description 01/11/2025 1:00 PM EDT Office Visit Radiation Oncology at [address] [phone] Misty Llanos MD [facility] DR RADIATION [place] [address] 08/23/2025 1:10 PM EST Appointment Mammography/[place] [phone] Jody Tam APRN [facility] [place] [address] 08/23/2025 2:10 PM EST Office [place] [phone] Jody Tam [facility] [place] [address] documented as of this encounter Procedures Procedure Name Priority Date/Time Associated Diagnosis Comments MAMMO US NEEDLE LOCALIZATION RIGHT Routine 11/20/2021 9:46 AM EST Malignant neoplasm of right breast in female, estrogen receptor positive, unspecified site of breast documented in this encounter Results * Mammo US Needle Localization Right (11/20/2021 9:46 AM EST) Anatomical Region Laterality Modality Breast [...] who have questions please contact the health career development manager that requested your imaging first. ? Electronically signed by: Bettina Chong MD, [facility] ([phone]), at 11/21/2021 4:02 PM Narrative 11/21/2021 4:02 PM EST NEEDLE LOCALIZATION OF LESION IN THE RIGHT BREAST AND SENTINEL NODE INJECTION CLINICAL HISTORY: Please needle localize right breast for cancer lesion. [place] node injection. TECHNIQUE: Informed consent was confirmed [...] site of breast documented in this encounter Administered Medications Inactive Administered Medications - up to 3 most recent administrations Medication Order MAR Action Action Date Dose Rate Site lidocaine (Xylocaine) 1% (10 mg/mL) injection 10 mg 10 mg, Intradermal, ONCE, 1 dose, On Sat11/20/21 at 0930, Routine Given 11/20/2021 9:30 AM EST 10 mg documented in this encounter Care Teams Form Setter/Driver Relationship Specialty Start Date End Date Brittany Wynne MD [address] [place] [address] [place] [address] PCP - General Family Medicine 10/23/21 documented as of this encounter
--- OUTSIDE RECORDS SUMMARY | 2024-10-26 16:34 | XMS_ITS | Encounter Summary ---
Author Organization [facility] Address [facility] [place] [address] Care Team Providers Care Pipe Foreman Name Role Phone Brittany Wynne MD Primary Care Provider + Encounter Details Date Type Department Care Team (Late st Contact Info) Description 11/17/2021 9:30 AM EST Telephone Hematology/Oncology at [address] [phone] Nilam Jiang, [facility] [address] [place] [address] Social History Tobacco Use Types Packs/Day Years Used Date Smoking Tobacco: Former Cigarettes Smokeless Tobacco: Never Comments:off and on since 2 018 currently not smoking Alcohol Use Standard Drinks/Week Comments Not Currently [...] Telephone Encounter - Nilam Jiang RD - 11/17/2021 2:35 PM EST Patient was unavailable to speak today but did agree to a phone call on 11/24. documented in this encounter Plan of Treatment Upcoming Encounters Date Type Department Care Team (Late st Contact Info) Description 01/11/2025 1:00 PM EDT Office Visit Radiation Oncology at [address] [phone] Misty Llanos MD [facility] [place] [address] 08/23/2025 1:10 PM EST Appointment Mammography/[place] [phone] Jody Tam APRN [facility] [place] [address] 08/23/2025 2:10 PM EST Office [place] [address] Jody Tam APRN [facility] [place] [address] documented as of this encounter Visit Diagnoses Not on filedocumented in this encounter Care Teams Pipe Foreman Relationship Specialty Start Date End Date Brittany Wynne MD [address] [place] [address] [place] [address] PCP - General Family Medicine 10/23/21 documented as of this encounter
--- OUTSIDE RECORDS SUMMARY | 2024-10-26 16:34 | XMS_ITS | Encounter Summary ---
Author Organization [facility] Address [address] [place] [address] Care Team Providers Care Entertainment Musician Name Role Phone Unknown, Provider Primary Care Provider Unava ilable Encounter Details Date Type Department Care Team (Late st Contact Info) Description 09/07/2021 Lab Requisition [facility] Pathology & [facility] [address] [place] [address] Brendan Hathaway MD [address] [place] [id number] Encounter for other general examination Social History Tobacco Use Types Packs/Day Years [...] Priority Date/Time Associated Diagnosis Comments SURGICAL PATHOLOGY Today 09/07/2021 12 :45 EST Encounter for other general examination documented in this encounter Results * SURGICAL PATHOLOGY (09/07/2021 12:45 EST) Addendum Comment Tissue submitted: Paraffin embedded tissue block labelled A2 from [facility] Immunohistochemical assays for estrogen receptors (SP1, [place]) and progesterone receptors (16, Leica) have been performed on this specimen. Intranuclear receptor complexes were visualized on tissue sections using an HRP polymer immunohistochemical technique. This assay is intended for paraffin-embedded tissue fixed in 10% neutral buffered formalin for 6-72 hours. Results are reported as negative (<1% nuclear staining) or positive with the proportion of positive cells noted. Estrogen receptor expression in <5% of tumor cells may not have a strong interaction with estrogen receptor modulators such as Tamoxifen. Reference: ASCO-CAP Guideline Recommendations for IHC testing of ER and TX. J Clin Oncol 2010;28:5915-0906. NOTE: One or more of the reagents used in immunoperoxidase testing in this case may not have been cleared or approved by the U.S. Food and Drug Administration (FDA). The FDA has determined that such clearance or approval is not necessary. These tests are used for clinical purposes. They should not be regarded as investigational or for research. These reagents' performance characteristics have been determined by [facility] and/or by the referring laboratory. The positive and negative controls worked appropriately. If immunoperoxidase staining has been performed on alcohol fixed cytology specimens, which has not been fully validated, the assays should be interpreted with caution and correlated with clinical data. This laboratory is certified under the Clinical Laboratory Improvement Amendments of 1988 (CLIA-88) as qualified to perform high complexity clinical laboratory testing. INTERPRETATION: BREAST, RIGHT, CORE BIOPSY: - Adenocarcinoma, invasive. - Positive for estrogen receptors (in >90% of tumor cells). - Nuclear staining intensity: Strong. - Positive for progesterone receptors (in >90% of tumor cells). - Nuclear staining intensity: Strong. COMMENT: Cold ischemic time and total formalin fixation time appropriate: Yes Tissue submitted: Paraffin embedded tissue block labelled A2 From [facility] Fixative: Formalin This immunohistochemical assay is intended to paraffin-embedded tissue fixed in 10% neutral buffered formalin for 6-72 hours; 18-24 hour fixation with maximum tissue thickness of 3-4 millimeters is recommended for best assay performance. Time from biopsy to placement in formalin (cold ischemic time) should be minimized to less than one hour. Her2 should not be performed on alcohol fixed tissues. The assay was performed under appropriate conditions according to the polysom tech's instructions with appropriate assay and tissue controls using an Anti-Her2 (4B5) Rabbit Monoclonal Antibody ([place]). Her2 Scoring Guidelines (invasive tumor component only) 0 negative No staining or membrane staining in less than 10% of cells 1+ negative Faint partial membrane staining in more than 10% of cells 2+ weakly positive Moderate complete membrane staining in more than 10% of cells 3+ positive Strong complete membrane staining in more than 10% of cells Reference: ASCO-CAP Recommendations for Her2 Testing. J Clin Oncol 2018; epub (www.jco.org April 08, 2018) *FDA statement Assay results Her2 IHC Score: 1+ Tumor location: Right Breast 8 o'oclock Cold ischemic time and total formalin fixative time appropriate: Yes Cells with complete membrane staining: None Membrane staining intensity: Faint Partial membrane staining: Present in 10% of cells Cytoplasmic staining: Faint Staining pattern: Heterogeneous Staining in benign epithelium: Faint Cytoplasmic The Her2 assay performed is interpreted as: NEGATIVE 09/11/2021 11:08 [facility] Addendum electronically signed by Herman Gay MD on 09/11/2021 at 1108 Note to Patient The following pathology results have been interpreted by your pathologist and may be available to you before your health provider has had the opportunity to review them. Please allow time for your provider to receive these results and explore management options, if applicable. 09/11/2021 11:08 [facility] Final Diagnosis A. BREAST, RIGHT, 8 O'CLOCK, 6 CM FROM NIPPLE, ULTRASOUND-GUIDED NEEDLE CORE BIOPSY: - Adenocarcinoma, invasive, ductal type, nuclear grade 1 and 2. See comment. - Microcalcifications associated with invasive carcinoma. 09/11/2021 11:08 [facility] Diagnosis Comment Estrogen and progesterone receptor assays and Her2 studies have been ordered and results will be issued in an Addendum. 09/11/2021 11:08 [facility] Attestation By the signature below, the attending physician certifies that they have 1) personally conducted a gross and/or microscopic examination of the described specimen(s), and/or personally interpreted the results of laboratory testing of the described specimen(s), and 2) personally rendered or confirmed the above diagnosis. 09/11/2021 11:08 [facility] at 1653 Clinical History 9 mm mass R breast 09/11/2021 11:08 [facility] Gross Description A. Received in formalin labelled with proper patient identification (initials B, S) and Rt are 3 yellow and white fibrofatty tissue cores (1.7 cm to 1.9 cm in length, and each 0.2 cm in diameter). Entirely submitted in A1 and A2. Time removed from patient: 12:45 hours 09/07/2021 Time placed in formalin: 12:45 hours 09/07/2021 Time out of formalin: 08:30 hours 09/08/2021 LAYO RANGEL(ASCP) 09/08/2021 8:15 09/11/2021 11:08 EST [facility] Performing Lab [facility] 09/11/2021 11:08 EST [facility] Scanned Images 09/11/2021 11:08 EST [facility] Tissue ENTIRE RIGHT BREAST / Unknown 09/07/2021 12:45 EST 09/08/2021 7:56 EST us Brendan Hathaway MD PATHOLOGY ORDERABLES Edited Res ult - Final [facility] [address] [place] [address] documented in this encounter Visit Diagnoses Diagnosis Encounter for other general examination documented in this encounter Care Teams Entertainment Musician Relationship Specialty Start Date End Date Unknown, Provider, PCP - General 07/26/17 documented as of this encounter
--- OUTSIDE RECORDS SUMMARY | 2024-10-26 16:34 | XMS_ITS | Encounter Summary ---
Author Organization [facility] [place] [address] Care Team Providers Care Cutter Woodwind Reeds Name Role Phone Unavailable Primary Care Provider Unavailabl e Encounter Details Date Type Department Care Team (Late st Contact Info) Description 09/25/2021 External Results [place] [address] Provider, Scanning Social History Tobacco Use Types Packs/Day Years [...] EDT Office Visit Radiation Oncology at [address] [phone] Misty Llanos MD [facility] [place] [place] [address] 08/23/2025 1:10 PM EST Appointment Mammography/[place] [address] Jody Tam APRN [facility] [place] [address] 08/23/2025 2:10 PM EST Office Visit [place] [address] Jody Tam APRN [facility] [place] [address] documented as of this encounter Procedures Procedure Name Priority Date/Time Associated Diagnosis Comments SURGICAL PATHOLOGY SCAN Routine 09/25/2021 documented in this encounter Results * Scan Doc: Surgical Pathology (09/25/2021) Historical Provider MD MEDIA MGR SCAN EX T ORDR/RSLT documented in this encounter Visit Diagnoses Not on filedocumented in this encounter
--- OUTSIDE RECORDS SUMMARY | 2024-10-26 16:34 | XMS_ITS | Encounter Summary ---
Author Organization [facility] Address [facility] [address] Care Team Providers Care Hand Cloth Examiner Name Role Phone Brittany Wynne MD Primary Care Provider + Reason for Visit * Reason Comments Advice Only Encounter Details Date Type Department Care Team (Late st Contact Info) Description 10/26/2021 2:00 PM EST Office Visit Hematology [place] [phone] Dylan Kendrick MD [facility] [place] [address] Malignant neoplasm of central portion of right breast in female, estrogen receptor positive Social History Tobacco Use Types Packs/Day Years Used Date Smoking Tobacco: Former Smokeless Tobacco: Never Overall Financial Resource Strain (CARDIA) [place] r [...] Sign Reading Time Taken Comments Blood Pressure 120/87 10/26/2021 1:45 PM EST Pulse 87 10/26/2021 1:45 PM EST Temperature 36.6 ??C (97.9 ??F) 10/26/2021 1:45 PM ES T Respiratory Rate 18 10/26/2021 1:45 PM EST Oxygen Saturation 97% 10/26/2021 1:45 PM EST Inhaled Oxygen Concentration - - Weight 63 kg (139 lb) 10/26/2021 1:45 PM EST Height 147.3 cm (4' 10) 10/26/2021 1:45 PM EST Body Mass Index 29.05 10/26/2021 1:45 PM EST documented in this encounter Progress Notes * Dylan Kendrick MD - 10/26/2021 2:00 PM EST Gena Morales is a 55-year-old woman sent for consultation by Brittany Wynne for newly diagnosed right breast cancer. Gena had a screening mammogram that showed a 1 cm mass at 8:00 9 cm from her right nipple. Ultrasound showed a 1.1 cm mass at 8:00 6 cm from her right nipple. US guided core biopsy showed infiltrating ductal carcinoma, low-grade, ER positive, HER-2 negative. MRI showed a 1.1 cm mass in her right breast 8:00 9 cm from the nipple. No other lesions. Her nodeslooked negative on MRI. Lesion two was identified on mammography in the right breast. This consisted of some calcificationsseen at 6:00 9 cm from the nipple. She was brought back for extra views and the radiologist considered that these were stable calcifications over the last 2 years and felt that these were benign. There were no lesions seen in this area on MRI. Her left mammogram and MRI were both negative. She has not felt masses in either breast. She has no family history of breast or ovarian cancer. She is postmenopausal. She is . Current medications are inhalers. She has allergies to amoxicillin. Past surgical history: appendectomy and cholecystectomy. Review of systems: she has a history of asthma and COPD. She has no cardiac or pulmonary symptomatology except for some mild pain in her right chest since the core biopsy. An abnormality noted on herMRI might indicate some trauma to her rib from the core biopsy. 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 Lives in [facility]. Her second of liver cancer within the last year. On physical exam she is alert and oriented. In general she appears well. Pupils are equal. She is not jaundiced. Lungs are clear. Heart has a regular rhythm. On examination of her right breast her nipple is inverted. She has had right and left nipple inversion since soon after puberty. There are nopalpable right breast masses. There is no right axillary adenopathy. She has full range of motion of her right arm and no right arm edema. There are no ecchymoses or hematomas of her right chest or breast. There are no left nipple abnormalities or breast masses. There is no left axillary adenopathy. Abdomen is flat. She is grossly neurologically nonfocal. I personally reviewed her mammogram, ultrasound and MRI images. Impression: 55-year-old woman with a small cancer in her right lateral breast. We used my decision-making table and discussed lumpectomy plus radiation therapy versus mastectomy plus or minus immediate reconstruction. She would like to proceed with breast conservation, so we will plan a wire localized right partial mastectomy. I recommended we perform a sentinel node excision. She understands what that entails and requests that we proceed. I discussed the specimen imaging study [id number] with her. She would like to be a part of the study. She signed the consent form and I gave her a copy of the signed consent form. I recommended that she take 2 weeks off from physical labor work after the surgery as part of her recovery. She lives in the [facility] and and can have adjuvant radiation therapy there. Copy to Brittany Wynne documented in this encounter Plan of Treatment Upcoming Encounters Date Type Department Care Team (Late st Contact Info) Description 01/11/2025 1:00 PM EDT Office Visit Radiation Oncology at [address] [phone] Misty Llanos MD [facility] [place] [address] 08/23/2025 1:10 PM EST Appointment Mammography/[place] [phone] Jody Tam, [facility] [place] [address] 08/23/2025 2:10 PM EST Office Visit [place] [phone] Jody Tam, [facility] [place] [address] documented as of this encounter Visit Diagnoses Diagnosis Malignant neoplasm of central portion of right breast in female, estrogen receptor positive documented in this encounter Care Teams Hand Cloth Examiner Relationship Specialty Start Date End Date Brittany Wynne MD [address] [place] [address] [place] [address] PCP - General Family Medicine 10/23/21 documented as of this encounter
--- OUTSIDE RECORDS SUMMARY | 2024-10-26 16:34 | XMS_ITS | Encounter Summary ---
Author Organization [facility] Address [address] [place] [address] Care Team Providers Care Brand Specialist Name Role Phone Unavailable Primary Care Provider Unavailabl e Encounter Details Date Type Department Care Team (Late st Contact Info) Description 08/19/2008 Before PRISM Converted Visit (Maple) [facility] - Maple conversion [address] [place] [address] Helga Bonilla NP Social History Tobacco Use Types Packs/Day Years [...] Procedure Name Priority Date/Time Associated Diagnosis Comments HPV DETECTION, HIGH RISK TYPES Routine 08/19/2008 10:22 EDT CYTOPATHOLOGY Routine 08/19/2008 0:00 EDT documented in this encounter Results * HUMAN PAPILLOMA VIRUS DNA TEST (08/19/2008 10:22 EDT) Specimen Description Cervix, ThinPrep vial [facility] Result Negative for HPV types 16, 18, 31, 33, 35, 39, 45, 51, 52, 56, 58, 59, and 68. [facility] Report Status Final 09/02/2008 [facility] 08/19/2008 10:2 2 EDT 08/26/2008 10:22 EST us Helga Bonilla NP MICROBIOLOGY - GENERAL ORDERABLE S Final Result [facility] [address] [place] [address] * CYTOPATHOLOGY (08/19/2008 0:00 EDT) Pathology Report: CYTOPATHOLOGY REPORT ? Reports generated via electronic interface contain original data; ? however they are lacking the format of the original report. ? Caution should be taken when reading/interpreti ng unformatted reports. ? Name: ? ANGELITO MORALES ? Accession #: ? [id number] ? : ? 1965 (Age: 42) ??F ?Collect Date: ? 08/19/2008 ? Location: ? [facility] ? Receive Date: ? 08/23/2008 ? Provider: ?HELGA BONILLA KIER PLEATER ? Copy to: ? Specimen/Source: ?Pap Test, Cervix/Endocervix, ThinPrep Imaging System ? with manual evaluation ? Last Menstrual Period: ? 9/23/08 ? Hormonal/Contracep tive Status: ? Tubal ligation: S/P ? Other: ? HPVDX - HPV testing requested regardless of diagnosis on current ThinPrep Pap ?? test. ? SPECIMEN ADEQUACY ? Satisfactory for Evaluation ? - transformation zone component absent ? GENERAL CATEGORIZATION ? Negative for Intraepithelial Lesion or Malignancy ? INTERPRETATION ? Shift in carmen present suggestive of bacterial vaginosis. ? Document reviewed and electronically signed by: ? Lynan Andrae, CT(ASCP) ? Report Date: ??08/25/2008 15:16 ? End of Report ? [facility] 08/19/2008 08/23/2008 us Helga Bonilla NP PATHOLOGY ORDERABLES Final Resul t [facility] [address] [place] [address] documented in this encounter Visit Diagnoses Not on filedocumented in this encounter
--- OUTSIDE RECORDS SUMMARY | 2024-10-26 16:34 | XMS_ITS | Encounter Summary ---
Author Organization [facility] [place] [address] Care Team Providers Care Delivery Clerk Name Role Phone Unavailable Primary Care Provider Unavailabl e Encounter Details Date Type Department Care Team (Late st Contact Info) Description 08/09/2017 Ancillary Procedure Radiology Library [place] [phone] Bettina Chong MD [facility] [place] [address] Social History Tobacco Use Types Packs/Day Years [...] PM EDT Office Visit Radiation Oncology at [address] [phone] Misty Llanos MD [facility] [place] [address] 08/23/2025 1:10 PM EST Appointment Mammography/[place] [phone] Jody Tam APRN [facility] [place] [address] 08/23/2025 2:10 PM EST Office Visit General [facility] [place] [phone] Jody Tam, [facility] [place] [address] documented as of this encounter Procedures Procedure Name Priority Date/Time Associated Diagnosis Comments FILM LIBRARY STORAGE ONLY MAMMO Routine 08/09/2017 12:00 AM EDT documented in this encounter Results * Film Library- Storage Only Mammo (08/09/2017 12:00 AM EDT) Narrative [facility] - 09/22/2021 8:51 AM EST This exam is auto-finalizing. It's purpose is for storage only. Bettina Chong MD [facility] FILM LIBRARY O RDERABLES [place], [place] documented in this encounter Visit Diagnoses Not on filedocumented in this encounter
--- OUTSIDE RECORDS SUMMARY | 2024-10-26 16:34 | XMS_ITS | Encounter Summary ---
[place] [address] Care Team Providers Care Latrine Cleaner Name Role Phone Brittany Wynne MD Primary Care Provider + Reason for Visit * Auth/Cert Specialty Diagnoses / Procedures Referred By Sandeep t Referred To Contact Diagnoses Breast cancer BREAST [...] Expiration Date Visits Re quested Visits Authorized [id number] 1 1 Encounter Details Date Type Department Care Team (Late st Contact Info) Description 11/20/2021 11:00 AM EST - 11/20/2021 12:56 PM EST Surgery [place] [phone] Dylan Marquez MD [facility] [place] [address] MASTECTOMY PARTIAL (WRVU 10.13) Social History Tobacco Use Types Packs/Day Years [...] Sign Reading Time Taken Comments Blood Pressure 116/72 11/20/2021 12:53 PM EST Pulse 76 11/20/2021 12:53 PM EST Temperature 36 ??C (96.8 ??F) 11/20/2021 12:35 PM EST Respiratory Rate 18 11/20/2021 12:53 PM EST Oxygen Saturation 100% 11/20/2021 12:53 PM EST Inhaled Oxygen Concentration - - Weight 62.1 kg (137 lb) 11/20/2021 10:32 AM EST Height 149.9 cm (4' 11) 11/20/2021 10:32 AM EST Body Mass Index 27.67 11/20/2021 10:32 AM EST documented in this encounter Discharge Instructions * Discharge Instructions* Myrna Bhandari RN - 11/20/2021 12:56 PM EST At 1100 mcihaela received 1000 mg of acetaminophen- Your next dose should not be taken before 8 hours have passed. Next dose not before- 7:00pm You should not take more than a total of 3000 mg of acetaminophen in a 24 hour period. General Anesthesia Discharge Instructions Go home and rest. You may be sleepy for several hours. Take it easy as sudden position changes may cause nausea and/or dizziness. Use caution on stairs. Do not smoke if you are alone. Follow a light to regular diet as tolerated today. If nausea occurs, start with clear liquids, and progress slowly to a regular diet. Do not drive, operate machinery, drink alcoholic beverages or make any legal decisions after havinggeneral anesthesia. The medications given change your reaction time and alter your judgement. SCOPOLAMINE PATCH DISCHARGE INSTRUCTIONS You are wearing a scopolamine patch.This is a medication patch used to prevent and treat nausea andvomiting after surgery. The patch is located behind your RIGHT ear. Please follow these instructions while you are wearing the patch. Try not to touch the patch. ??? If you do touch the patch, wash your hands right away. Make sure to remove all traces of medication from your hands. ??? If the medication gets on your hands and then you touch your eyes, your vision may become blurry or your pupils may widen. These are both normal and temporary reactions; they will go away shortly. You may remove the patch as early as: tonight BUT must remove it no later than am/pm on 11/23/21 There will still be some active ingredients on the patch, so fold it in half (with the sticky sidestogether) and throw it in the trash. This will help prevent others from coming into contact with it. After removing the patch, carefully wash your hands and behind your ear (or wherever the patch was placed) with soap and water. ?? If you have not urinated in 6-8 hours after your surgery, remove the patch and call your surgeon. IV site -- slight redness is normal, you can use warm compresses. If tenderness and redness increases or foul drainage occurs, please contact your M.D. Patients who have had endotracheal tubes/LMA (tubes used by the anesthesia staff to ensure a safe airway during your operation) may have a sore throat. This is normal and cold liquids or soothing lozenges will help ease this discomfort. Narcotic pain medications can cause constipation, please ask the surgeons office what they recommend for prevention of this. Some non-pharmaceutical means of constipation prevention include increasing intake of fluids, eating more fruits and vegetables as well as fruit juices. If you are uncomfortable and/or unable to urinate within 8 hours of discharge and it is before 5 pm, call your physician. If it is after 5pm go to the closest emergency room or call the hospital line up machine operator at [phone] and ask for physician potline monitor covering for your physician. Questions or problems after 5pm or on a weekend: Call the [facility] line up machine operator at and ask for the physician potline monitor covering for your doctor. * Patient Instructions* Zeinab Tomlinson MD - 11/20/2021 10:51 AM EST Instructions following Breast Surgery Wound Care: Keep dressing on incision for the next 7 days, then you may remove and leave open to air. You may shower tomorrow morning with the Tegaderm covering the site. Do not scrub area vigorously for the next 1 week. Do not soak incision(s) under water for the next 2 weeks (i.e. soaking in bath or swimming) as this may promote a wound infection. You may remove dressing if it becomes saturated/wet and replace with dry gauze as needed for seepage/comfort. ICE: You may apply ice to incision during the first 48 hours following surgery to help limit swelling, bruising, and discomfort. You may also find wearing a bra for the first two days following surgery will help with discomfort, although this is not absolutely necessary. Your stitches will dissolve and do not need to be removed. Activity: As tolerated by your comfort level. Call Doctor for: Please call if you notice worsening redness or drainage from incision(s) lasting longer than 5 days after your surgery, any foul-smelling drainage from the incision, pain not controlled by pain medications, persistent nausea and vomiting, or for any fevers greater than 101.3 F. The number for questions is [phone] before 5 PM week. Pain Medication: Please use ibuprofen (motrin, advil) 600 mg three times per day with food and tylenol 650 mg every 8 hours between the ibuprofen doses. Follow-up: Follow-up appointment will be scheduled with in 1-2 weeks. Scheduled Appointments: The following appointment with Dr. Marquez has been scheduled on your behalf: Future Appointments Date Time Provider Department Center 11/24/2021 11:[address] STJ Hem Off [facility] 12/07/2021 11:00 AM Marianela Goldman MD [facility] HEM ONC [facility] 12/07/2021 1:00 PM Dylan Marquez MD [facility] HEM ONC [facility] 12/19/2021 9:[address] Ena J STJ Rad Off [facility] 12/19/2021 10:00 AM Misty Llanos MD STJ Rad Off [facility] 12/19/2021 10:00 AM STJ RAD/ONC, TREATMENT STJ Rad Trt [facility] Please call [phone] (clinic number) if any changes need to be made to your appointment time. documented in this encounter Medications at Time [...] as of this encounter Progress Notes * Myrna Bhandari RN - 11/20/2021 1:23 PM EST Discharge instructions and medications reviewed with patient and son, Doug. All questions answered and written copy sent home with patient. Patient ambulated to car for discharge accompanied by [facility] staff member. Instructed in incentive spirometer use, verbalized and demonstrated understanding. No prescriptions. documented in this encounter H&P Notes * Dylan Marquez MD - 11/20/2021 10:30 AM EST I examined this patient today and she is marked and is ready for surgery Right partial mastectomy and sentinel node excision for breast cancer documented in this encounter Miscellaneous Notes * Op Note - Dylan Marquez MD - 11/20/2021 11:22 AM EST [facility] Operative Note Patient Name: Gena Morales : [id number] MR#: [id number] Case Date: 11/20/2021 Surgeon: Surgeon(s) and Role: * Dylan Marquez MD - Primary * Zeinab Tomlinson MD - Resident Preoperative diagnosis: BREAST CANCER Postoperative diagnosis: BREAST CANCER Procedure(s) (LRB): MASTECTOMY PARTIAL (WRVU 10.13) (Right) BIOPSY OR EXCISION OF LYMPH NODE(S), OPEN, DEEP AXILLARY NODE(S) (WRVU 6.43) (Right) INTRAOPERATIVE ID (MAPPING) SENTINEL LYMPH NODE,INCLUDES INJECTION (WRVU 2.5) (Right) MODIFIER WITH NEEDLE LOC., LESION #1 (Right) MODIFIER SENTINEL NODE EXCISION (Right) Anesthesia: General Estimated Blood Loss: 10 ml Specimens removed during surgery: right partial mastectomy; right axillary sentinel node Surgical Closure: Primary Closure - skin incision is completely closed without any wires, ross, drains or other devices Indications for surgery: Gena Morales is a 55-year-old woman with a cancer in her right lateral breast. It was wire localized prior to surgery. She had technetium injected for sentinel node identification. I used the gamma probe and was not able to detect a peak of radioactivity in the right axilla. I used 5 mL of Marcaine lidocaine solution and injected it just medial to her sentinel node injection site. I also injected 3 mL of methylene blue in her right breast. Details of the procedure: She was then prepped and draped and given preoperative antibiotics. I anesthetized the skin and made an incision in the right inferior lateral breast. It was along the inferior mammary fold so that her scar was minimized. I identified the wire and flicked the wire into theincision. I then raised a superficial flap moving medially. I then widely removed the tissue aroundthe wire. The deep aspect of my excision was the pectoralis major muscle and the serratus muscle a little bit lateral to that. The specimen was imaged on the [id number] imaging study. It was then brought back in the room and I inked it with 6 different colors of ink. Specimen mammogram was done which showed that the mass and theclip were nicely contained in the middle of the specimen and all the margins looked widely negative. The specimen was then sent to pathology. We obtained meticulous hemostasis. I then used the gamma probe and now was able to detect a peak of radioactivity in the right axilla.I anesthetized the skin and made an incision at that site of radioactivity. We dissected through the axillary fascia and identified and excised a deep right axillary sentinel lymph node. There was a blue lymphatic channel heading toward the lymph node. The ex vivo count was 151. The remaining countwas 7. The right axillary sentinel node was sent to pathology. We obtained meticulous hemostasis. Ithen left 3 mL of Marcaine lidocaine solution in the right axilla and 7 mL in the right breast lumpectomy cavity. Deep dermis was closed with interrupted 3-0 Vicryl and the skin with 4-0 Monocryl. Gauze and Tegaderm were placed Surgical Infection Prevention Bundle Used? N/A Attestation: Case Date: 11/20/2021 I was present and I participated during the entire procedure (does not need to include opening and closing). DYLAN MARQUEZ MD 11/20/2021 documented in this encounter Plan of Treatment Upcoming Encounters Date Type Department Care Team (Late st Contact Info) Description 01/11/2025 1:00 PM EDT Office Visit Radiation Oncology at [address] [phone] Misty Llanos MD [facility] [place] [address] 08/23/2025 1:10 PM EST Appointment Mammography/[place] [phone] Jody Tam GRINDER OPERATOR TOOL [facility] [place] [address] 08/23/2025 2:10 PM EST Office [place] [phone] Jody Tam [facility] [place] [address] documented as of this encounter Procedures Procedure Name Priority Date/Time Associated Diagnosis Comments SPECIMEN TO PATHOLOGY Routine 11/20/2021 12:11 PM EST SURGICAL PATHOLOGY REPORT Routine 11/20/2021 11:38 AM EST SPECIMEN TO PATHOLOGY Routine 11/20/2021 11:38 AM EST MODIFIER SENTINEL NODE EXCISION 11/20/2021 11:02 AM EST BREAST CANCER MODIFIER WITH NEEDLE LOC., LESION #1 11/20/2021 11:02 AM EST BREAST CANCER Intraop [place] Lymph Id W/Dye Injection ([id number]) 11/20/2021 11:02 AM EST BREAST CANCER Bx/Remv, Lymph Node, Deep Axill (02459) 11/20/2021 11:02 AM EST BREAST CANCER Mastectomy Partial (59538) 11/20/2021 11:02 AM EST BREAST CANCER documented in this encounter Results * Specimen to Pathology (11/20/2021 12:11 PM EST) AP Specimen 11/20/2021 12:1 1 PM EST 11/20/2021 12:11 PM EST Narrative [facility] - 11/20/2021 12:11 PM EST Specimen requisition ordered. ??Separate Pathology report to follow Dylan Marquez MD PATHOLOGY/CYTOLOGY O [facility] [place] [address] * Surgical Pathology Report (11/20/2021 11:38 AM EST) Final Diagnosis [id number] ? Location: [facility] The signing pathologist has (i) examined the relevant preparation(s) for the specimen(s) and (ii) rendered or confirmed the diagnosis(es). . 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 Perineural and neural invasion. See Synoptic report. B - Right sentinel axillary lymph node - Five benign nodes (0/5). Electronically signed by: ?Yumiko Dudley DO Verified: ??11/29/2021 8:53 ?? Pathologist Performed at: ??-[facility] Dept. of Pathology, [place], [place] SYNOPTIC Specimen ? Procedure: ??Excision (less than total mastectomy) ? Specimen Laterality: ??Right Tumor ? Histologic Type: ??Invasive ductal carcinoma ? Histologic Grade (Mandy Histologic Score): ?Glandular (Acinar) / Tubular Differentiation: ??Score 1 ?Nuclear Pleomorphism: ??Score 2 ?Mitotic Rate: ??Score 2 ?Overall Grade: ??Grade 1 (scores of 3, 4 or 5) ? Tumor Size: ??8.5 Millimeters (mm) ? Tumor Focality: ??Single focus of invasive carcinoma ? Ductal Carcinoma In Situ (DCIS): ??Not identified ? Treatment Effect in the Breast: ??No known presurgical therapy Margins ? Margin Status for Invasive Carcinoma: ??All margins negative for invasive ?carcinoma ?Distance from Invasive Carcinoma to Closest Margin: ??7 mm ?Closest Margin(s) to Invasive Carcinoma: ??Posterior ? Margin Status for DCIS: ??Not applicable (no DCIS in specimen) ? Margin Comment: ??All other RM > 10 mm Regional Lymph Nodes ? Regional Lymph Node Status: ??All regional lymph nodes negative for tumor ? Total Number of Lymph Nodes Examined (sentinel and non-sentinel): ??5 ? Number of [place] Nodes Examined: ??5 Pathologic Stage Classification (pTNM, AJCC 8th Edition) ? pT Category: ??pT1b ? Regional Lymph Nodes Modifier: ??(sn): [place] node(s) evaluated. ? pN Category: ??pN0 Additional Findings ? Additional Findings: ??Focal ADH Tumor Block(s): ??A6 Normal Block(s): ??A8 CAP eCC August 2021 Release ADDITIONAL STUDIES Immunohistochemistry Studies: Formalin-fixed, paraffin-embedded tissue sections are studied using the polymer technique with appropriate positive and negative controls. ?These IHC studies . ADDITIONAL STUDIES provide the pathologist with adjunctive diagnostic information. Antibody specificity has been verified by testing antibodies on a series of in-house tissues with known immunohistochemical performance characteristics. The clinical interpretation of any antibody positive staining or its absence is evaluated within the context of clinical presentation, morphology, histopathological criteria and other diagnostic tests. Block ? Antibody ?Result (Positive/Negative) A4 ? S100 ?Positive for PNI. ? CD31 ?Negative for LVI. ? Calponin ?Negative in lesional cells. B5/B3 ?CKAE1/3 ? Negative SPECIMEN(S) SUBMITTED A - right partial mastectomy, excision (1) B - Right [place] Axillary Lymph node (#151/#7), excision (1) CLINICAL INFORMATION Breast cancer SPECIMEN PROCESSING A - Labeled/Fixative: Right partial mastectomy, fresh. Quantity/Size/Weight : Single, 6.3 cm, lateral-yellow to medial-red; 5.7 cm, superior- orange tissue inferior-green; 2.2 cm, anterior-blue to posterior-black ,30 g. SPECIMEN DESCRIPTION Resection Specimen: Intact, partial mastectomy. Specimen radiograph: Radiology the presence of wire, clip and mass within the specimen. Specimen Description: According to the established protocol the ink designations are red (medial), yellow (lateral), orange (superior), green (inferior), black (posterior) and blue (anterior). Tissue Sections: The specimen is serially sectioned perpendicular to the long axis from medial-red to lateral-yellow into slices, each averaging 0.8 cm in thickness. LESION ??Description: 0.8 x 0.7 x 0.6 cm, solis-white, firm, mass, with ill-defined borders. ??Location: Slice III. ??Nearest Margin(s): 0.7 cm, posterior-black. ??Other Margin(s): 1.7 cm, anterior ?? -blue. ??Other Margin(s): 1.4 cm, inferior-green. ??Other Margin(s): 1.8 cm, superior-orange. ??Other Margin(s): 1.7 cm, medial-red. ??Other Margin(s): 1.9 cm, lateral-yellow. ??Wire/clip: Wire tip is present in slice II, clip identified in slice III Parenchyma: The remaining parenchyma reveals lobular adipose tissue with a minimal amount of interspersed white breast tissue Sections/Processing: Specimen is photographed (slice III) Facility Attendant sections in 12 cassettes as follows: ?A1: ??Slice I artists' booking representative, medial-red ?A2-A3: ??Slice II, artists' booking representative, with posterior-black in A2 and medial-red in A3 ?A4-A5: ??Slice III, lesion to posterior-black, biopsy marker clip site in A4 ?A6: ??Slice III, lesion to inferior-green ?A7: ??Slice III with superior-orange and medial-red ?A8-A9: ??Slice III, with anterior-blue ?A10: ??Facility Attendant IV, anterior-blue ?A11: ??Facility Attendant V, anterior-blue ?A12: ??Facility Attendant , lateral-yellow Ischemic Time: 0.88 B - Labeled/Fixative: Right sentinel axillary lymph node, fresh. . SPECIMEN PROCESSING Quantity/Size: Single, 4.5 x 2.8 x 0.8 cm. Tissue Description: Portion of lobular, solis-yellow fibroadipose tissue with what appear to be five possible nodes ranging from 0.3-0.6 cm Sections/Processing: The benjamin tissue is totally submitted in five cassettes with a single possible noted in each cassette. Facility Attendant sections in 6 cassettes as follows: ?B1-B5: ??Benjamin tissue, each with a single node ?B6: ??Facility Attendant adjacent adipose tissue consistent ??pps 11/29/2021 8:53 AM [facility] SENTINEL LYMPH NODE / Unknown 11/20/2021 11:38 AM EST 11/20/2021 11:38 AM EST SENTINEL LYMPH NODE / Unknown 11/20/2021 11:38 AM EST 11/20/2021 11:38 AM EST Dylan Marquez MD PATHOLOGY/CYTOLOGY O [place] Performing Organization Address [facility]/[place] [address] * Specimen to Pathology (11/20/2021 11:38 AM EST) AP Specimen 11/20/2021 11:3 8 AM EST 11/20/2021 11:38 AM EST Narrative [facility] - 11/20/2021 11:38 AM EST Specimen requisition ordered. ??Separate Pathology report to follow Dylan Marquez MD PATHOLOGY/CYTOLOGY O [place] Performing Organization Address [facility] [place] [address] documented in this encounter Visit Diagnoses Not on filedocumented in this encounter Administered Medications Inactive Administered Medications - up to 3 most recent administrations Medication Order MAR Action Action Date Dose Rate Site acetaminophen (Tylenol) tablet 650 mg 650 mg, Oral, 30 MIN PRE-OP, 1 dose, On Sat11/20/21 at 1045, Day of Surgery (Day of Procedure) Given 11/20/2021 10:43 AM EST 650 mg albuteroL (Proventil) nebulizer solution 2.5 mg 2.5 mg, Nebulization, 4 TIMES DAILY, 1 dose, First dose on Sat11/20/21 at 1300, Routine Given 11/20/2021 12:41 PM EST 2.5 mg BUpivacaine (pf) (Marcaine) (5 mg/mL) 0.5% injection ONCE PRN, Starting on Sat11/20/21 at 1129, Until Sat11/20/21 at 1707, Intra-Operative (Intra-Procedure), Routine Given 11/20/2021 11:29 AM EST 12.5 mLs 19- Surgical Site lactated ringers infusion 1,000 mL, at 100 mL/hr, Intravenous, CONTINUOUS, Starting on Sat11/20/21 at 1045, Until Sat11/20/21 at 1506, Day of Surgery (Day of Procedure) New Bag 11/20/2021 11:03 AM EST 1,000 mLs 100 mL/hr lidocaine (pf) (Xylocaine) (10 mg/mL) 1% injection ONCE PRN, Starting on Sat11/20/21 at 1130, Until Sat11/20/21 at 1707, Intra-Operative (Intra-Procedure), Routine Given 11/20/2021 11:30 AM EST 12.5 mLs 19- Surgical Site methylene blue (Provayblue) (5 mg/mL) injection ONCE PRN, Starting on Sat11/20/21 at 1131, Until Sat11/20/21 at 1707, Intra-Operative (Intra-Procedure) Given 11/20/2021 11:31 AM EST 3 mLs 19- Surgical Site scopolamine (Transderm Scop) 1 mg over 3 days patch 1 patch 1 patch, Transdermal, ONCE, 1 dose, On Sat11/20/21 at 1115, Day of Surgery (Day of Procedure), Routine Patch Applied 11/20/2021 10:54 AM EST 1 patch 02- Ear Behind (Right) scopolamine (TRANSDERM-SCOP) 1 mg patch Patch Removal Transdermal, ONCE, 1 dose, On Sat11/21/21 at 1100, Remove scopolamine 1 mg patch, Recovery (Recovery-Hospital Unit) scopolamine (TRANSDERM-SCOP) 1 mg patch Patch Verification Transdermal, 2 TIMES DAILY, 2 doses, First dose on Sat11/20/21 at 2300, Last dose on Sat11/21/21 at 0900, Verify scopolamine 1 mg patch., Recovery (Recovery-Hospital Unit) documented in this encounter Active and Recently Administered Medications Times are shown in EST. Scheduled Medication Order 11/18/2021 11/19/2021 11/20/2021 acetaminophen (Tylenol) tablet 650 mg (COMPLETED) 650 mg, Oral, 30 MIN PRE-OP, 1 dose, On Sat11/20/21 at 1045, Day of Surgery (Day of Procedure) 1043 (Given - Provid er: Leonel Shah RN) albuteroL (Proventil) nebulizer solution 2.5 mg (COMPLETED) 2.5 mg, Nebulization, 4 TIMES DAILY, 1 dose, First dose on Sat11/20/21 at 1300, Routine 1241 (Given - Provid er: Myrna Bhandari RN) clindamycin (Cleocin) 900 mg in dextrose 5% 50 mL infusion (COMPLETED) 900 mg, Intravenous, EVERY 6 HOURS, 1 dose, First dose on Sat11/20/21 at 1045, Administer over 30 Minutes, Do not exceed 30 mg/minute., Intra-Operative (Intra-Procedure), Indication for (Active or Suspected): Prophylaxis 1114 (Given - Provid er: Napoleon aPyne CRNA) scopolamine (Transderm Scop) 1 mg over 3 days patch 1 patch (COMPLETED) 1 patch, Transdermal, ONCE, 1 dose, On Sat11/20/21 at 1115, Day of Surgery (Day of Procedure), Routine 1054 (Patch Applied - Provider: Leonel Shah RN) scopolamine (TRANSDERM-SCOP) 1 mg patch Patch Removal Transdermal, ONCE, 1 dose, On Sat11/21/21 at 1100, Remove scopolamine 1 mg patch, Recovery (Recovery-Hospital Unit) scopolamine (TRANSDERM-SCOP) 1 mg patch Patch Verification Transdermal, 2 TIMES DAILY, 2 doses, First dose on Sat11/20/21 at 2300, Last dose on Sat11/21/21 at 0900, Verify scopolamine 1 mg patch., Recovery (Recovery-Hospital Unit) Continuous Medication Order 11/18/2021 11/19/2021 11/20/2021 lactated ringers infusion (CANCELED) 1,000 mL, at 100 mL/hr, Intravenous, CONTINUOUS, Starting on Sat11/20/21 at 1045, Until Sat11/20/21 at 1506, Day of Surgery (Day of Procedure) 1103 (New Bag - Prov ider: Leonel Shah RN) PRN Medication Order 11/18/2021 11/19/2021 11/20/2021 BUpivacaine (pf) (Marcaine) (5 mg/mL) 0.5% injection (CANCELED) ONCE PRN, Starting on Sat11/20/21 at 1129, Until Sat11/20/21 at 1707, Intra-Operative (Intra-Procedure), Routine 1129 (Given - Provid er: Dylan Marquez MD - Comment: mixed 1:1 with 1% lidocaine and injected) lidocaine (pf) (Xylocaine) (10 mg/mL) 1% injection (CANCELED) ONCE PRN, Starting on Sat11/20/21 at 1130, Until Sat11/20/21 at 1707, Intra-Operative (Intra-Procedure), Routine 1130 (Given - Provid er: Dylan Marquez MD - Comment: mixed 1:1 with 0.5% marcaine and injected) methylene blue (Provayblue) (5 mg/mL) injection (CANCELED) ONCE PRN, Starting on Sat11/20/21 at 1131, Until Sat11/20/21 at 1707, Intra-Operative (Intra-Procedure) 1131 (Given - Provid er: Dylan Marquez MD - Comment: injected surgical site prior to surgical prep) documented in this encounter Care Teams Latrine Cleaner Relationship Specialty Start Date End Date Brittany Wynne MD [address] [place] [address] [place] [address] PCP - General Family Medicine 10/23/21 documented as of this encounter
--- OUTSIDE RECORDS SUMMARY | 2024-10-26 16:34 | XMS_ITS | Encounter Summary ---
Author Organization [facility] [place] [address] Care Team Providers Care Group Work Program Director Name Role Phone Unavailable Primary Care Provider Unavailabl e Encounter Details Date Type Department Care Team (Late st Contact Info) Description 09/07/2021 Ancillary Procedure Radiology Library at [facility] [place] [place] [phone] Bettina Chong MD [facility] [place] [address] Social History Tobacco Use Types Packs/Day Years [...] PM EDT Office Visit Radiation Oncology at [address] [phone] Misty Llanos MD [facility] [place] [address] 08/23/2025 1:10 PM EST Appointment Mammography/[place] [phone] Jody Tam APRN [facility] [place] [address] 08/23/2025 2:10 PM EST Office Visit General Surgery at [facility] [place] [address] Jody Tam, [facility] [place] [address] documented as of this encounter Procedures Procedure Name Priority Date/Time Associated Diagnosis Comments FILM LIBRARY-STORAGE ONLY US BREAST Routine 09/07/2021 12:00 AM EST documented in this encounter Results * Film Library Storage Only US Breast (09/07/2021 12:00 AM EST) Narrative [facility] - 09/22/2021 8:44 AM EST This exam is auto-finalizing. It's purpose is for storage only. Bettina Chong MD [employer] FILM LIBRARY O RDERABLES [place], [place] documented in this encounter Visit Diagnoses Not on filedocumented in this encounter
--- OUTSIDE RECORDS SUMMARY | 2024-10-26 16:34 | XMS_ITS | Encounter Summary ---
[place] [address] Care Team Providers Care Trade Union Official Name Role Phone Brittany Wynne MD Primary Care Provider + Encounter Details Date Type Department Care Team (Latest Contact Info) Description 10/26/2021 1:00 PM EST Laboratory Appointment Lab [address] [place] [phone] Malignant neoplasm of right breast in female, [...] PM EDT Office Visit Radiation Oncology at [address] [phone] Misty Llanos MD [facility] [place] [address] 08/23/2025 1:10 PM EST Appointment Mammography/[place] [phone] Jody Tam, [facility] [place] [address] 08/23/2025 2:10 PM EST Office Visit [place] [phone] Jody Tam, [facility] [place] [address] documented as of this encounter Procedures Procedure Name Priority Date/Time Associated Diagnosis Comments HEMOGRAM Routine 10/26/2021 12:42 PM EST Malignant neoplasm of right breast in female, estrogen receptor positive, unspecified site of breast DIFFERENTIAL, AUTOMATED Routine 10/26/2021 12:42 PM EST Malignant neoplasm of right breast in female, estrogen receptor positive, unspecified site of breast HC CBC,PLT & AUTO DIFF Routine 2 12:42 PM EST Malignant neoplasm of right breast in female, estrogen receptor positive, unspecified site of breast COMPREHENSIVE METABOLIC PANEL Routine 10/26/2021 12:42 PM EST Malignant neoplasm of right breast in female, estrogen receptor positive, unspecified site of breast documented in this encounter Results * Differential, Automated (10/26/2021 12:42 PM EST) Neutrophil % 52.9 % [facility] Neutrophil Absolute 4.03 1.70 - 6.10 x10(3)/[facility] LABORAT[facility] Lymph % 36.2 % [facility] Lymphocytes Abs 2.8 0.9 - 3.2 x10(3)/[facility] LABOR[facility] Monocyte % 7.9 % [facility] Monocyte Abs 0.6 0.3 - 0.9 x10(3)/[facility] LABOR[facility] Eos % 1.7 % [facility] Eosinophils Abs 0.1 0.0 - 0.4 x10(3)/[facility] LABOR[facility] Basophil % 0.9 % [facility] Baso Absolute 0.1 0.0 - 0.1 x10(3)/[facility] LABORATORY Immature Gran % 0.40 % [facility] Comment: Immature granulocytes(IG's)percentage and absolute count will include metamyelocytes, myelocytes, and promyelocytes. Blood smears from CBCs yielding IG's will be scanned manually for concordance. If this scan disagrees with the automated IG or if promyelocytes are noted, a manual differential will be performed. Immature Gran Absolute 0.03 0.00 - 0.04 x10(3)/[facility]OR[facility] Blood 10/26/2021 12:4 2 PM EST 10/26/2021 1:07 PM EST Narrative Resulting Agency Comment Spec In Lab Dylan Kendrick MD HEMATOLOGY ORDERABLE S [facility] [place] [address] * (ABNORMAL) Hemogram (10/26/2021 12:42 PM EST) White Blood Cell 7.6 4.0 - 9.5 x10(3)/[facility] LABORAT[facility] Red Blood Cell 4.48 4.00 - 5.21 x10(6)/[facility]ORAT[facility] Hemoglobin 14.3 11.7 - 15.5 g/dL [facility] Hematocrit 43.4 35.7 - 45.8 % [facility] Mean Cell Volume 96.9(H) 82.6 - 94.[address] [facility] Mean Cell Hemoglobin 31.9 27.1 - 32.[address] [facility] Mean Cell Hemoglobin Concentration 32.9 31.7 - 35.0 g/dL [facility] Platelet 339 145 - 357 x10(3)/mc L [facility] RDW Standard Deviation 46.0 37.0 - 46.[address] [facility] RDW coefficient of variation 12.7 11.5 - 14.1 % [facility] Mean Platelet Volume 9.8 7.6 - 12.[address] [facility] NRBC% auto 0.0 % [facility] NRBC Absolute 0.000 0.000 - 0.000 x10(3)/mc L [facility] Blood 10/26/2021 12:4 2 PM EST 10/26/2021 1:07 PM EST Narrative Resulting Agency Comment Spec In Lab Dylan Kendrick MD HEMATOLOGY ORDERABLE S [facility] [place] [address] * (ABNORMAL) Comprehensive metabolic panel (non-fasting) (10/26/2021 12:42 PM EST) Glucose 88 65 - 199 mg/dL [facility] Comment:Diabetes: >=200 mg/d L plus symptoms Blood Urea Nitrogen 19(H) 8 - 18 mg/dL [facility] Creatinine 0.74 0.70 - 1.20 mg/dL [facility] Sodium 138 135 - 145 mmol/L [facility] Potassium 4.2 3.5 - 5.0 mmol/L [facility] Comment: Please note: ??Patients with WBC >100,000 may have falsely elevated Potassium levels. ??For accurate Potassium quantification in these patients send serum separator tube (gold top) for subsequent determinations. ??Contact the Clinical Chemistry Laboratory if there are any questions. Chloride 104 98 - 107 mmol/L [facility] Carbon Dioxide 23 22 - 31 mmol/L [facility] Anion Gap 11 5 - 15 mmol/L [facility] Calcium 9.8 8.5 - 10.5 mg/dL [facility] Protein, Total 7.2 6.1 - 8.0 g/dL [facility] Albumin 4.6 3.2 - 5.2 g/dL [facility] Aspartate Aminotransferase 23 0 - 30 unit/L [facility] Alanine Aminotransferase 35(H) 0 - 30 unit/L [facility] Alkaline Phosphatase 117(H) 35 - 105 unit/L [facility] Bilirubin, Total 0.2 0.2 - 1.3 mg/dL [facility] Est Glomerular Filtration Rate 90 >=60 mL/min/1. 73 m?? [facility] Comment: This patient? s estimated glomerular filtration rate (eGFR) is between 90 mL/min/1.73 m2 (patients with less muscle mass) and 104 mL/min/1.73 m2 (patients with more muscle mass) as determined by the CKD-EPI equation. Assessment of eGFR is not appropriate when creatinine concentrations are rapidly changing. For clinical decisions where creatinine clearance will affect therapy, a 24-hour urine creatinine clearance may be advised. Assignment of CKD stage 1 - 5 for patients with an eGFR near the transition point between stages may be based on clinical assessment of muscle mass and symptoms in addition to eGFR. Blood 10/26/2021 12:4 2 PM EST 10/26/2021 1:07 PM EST Narrative Resulting Agency Comment Spec In Lab Dylan Kendrick MD CHEMISTRY ORDERABLES [facility] [place] [address] documented in this encounter Visit Diagnoses Diagnosis Malignant neoplasm of right breast in female, estrogen receptor positive, unspecified site of breast documented in this encounter Care Teams Trade Union Official Relationship Specialty Start Date End Date Brittany Wynne MD [address] [place] [address] [place] [address] PCP - General Family Medicine 10/23/21 documented as of this encounter
--- OUTSIDE RECORDS SUMMARY | 2024-10-26 16:34 | XMS_ITS | Encounter Summary ---
Author Organization [facility] [place] [address] Care Team Providers Care Chief Operator Name Role Phone Unavailable Primary Care Provider Unavailabl e Encounter Details Date Type Department Care Team (Late st Contact Info) Description 08/14/2021 Ancillary Procedure Radiology Library at [facility] [place] [phone] Bettina Chong MD [facility] [place] [address] Social History Tobacco Use Types Packs/Day Years [...] PM EDT Office Visit Radiation Oncology at [address] [phone] Misty Llanos MD [facility] [place] [address] 08/23/2025 1:10 PM EST Appointment Mammography/[place] [phone] Jody Tam APRN [facility] [place] [address] 08/23/2025 2:10 PM EST Office Visit General Surgery at [facility] [place] [address] Jody Tam, [facility] [place] [address] documented as of this encounter Procedures Procedure Name Priority Date/Time Associated Diagnosis Comments FILM LIBRARY STORAGE ONLY MAMMO Routine 08/14/2021 12:00 AM EDT documented in this encounter Results * Film Library- Storage Only Mammo (08/14/2021 12:00 AM EDT) Narrative [facility] - 09/22/2021 8:43 AM EST This exam is auto-finalizing. It's purpose is for storage only. Bettina Chong MD IMG FILM LIBRARY O RDERABLES [place], [place] documented in this encounter Visit Diagnoses Not on filedocumented in this encounter
--- OUTSIDE RECORDS SUMMARY | 2024-10-26 16:34 | XMS_ITS | Encounter Summary ---
[place] [address] Care Team Providers Care Manufacturing Industrial Engineer Name Role Phone Unavailable Primary Care Provider Unavailabl e Reason for Referral * Diagnostic Test (Routine) - Closed Specialty Diagnoses / Procedures Referred By Contac t Referred To Contact Radiology Diagnoses Malignant neoplasm of right breast in female, estrogen receptor positive, unspecified site of breast Procedures MRI Breast wwo Contrast Dylan Roman MD [facility] [place] [address] [place] [address] Referral ID Status Reason Start Date Expiration Date V isits Requested Visits Authorized [id number] Closed Specialty Service Requested 09/22/2021 03/23/2023 1 1 Encounter Details Date Type Department Care Team (Late st Contact Info) Description 09/22/2021 Orders [place] [phone] Dylan Kendrick MD [facility] [place] [address] Malignant neoplasm of right breast in female, [...] EDT Office Visit Radiation Oncology at [address] [phone] Misty Llanos MD [facility] [place] [address] 08/23/2025 1:10 PM EST Appointment Mammography/[place] [phone] Jody Tam, [facility] [place] [place] [address] 08/23/2025 2:10 PM EST Office [place] [phone] Jody Tam, [facility] [place] [place] [address] documented as of this encounter Results * (ABNORMAL) Comprehensive metabolic panel (non-fasting) (10/26/2021 12:42 PM EST) [facility] Glucose 88 65 - 199 mg/dL [facility] Comment:Diabetes: >=200 mg/d L plus symptoms Blood Urea Nitrogen 19(H) 8 - 18 mg/dL [facility] Creatinine 0.74 0.70 - 1.20 mg/dL [facility] Sodium 138 135 - 145 mmol/L [facility] Potassium 4.2 3.5 - 5.0 mmol/L [facility] Comment: Please note: ??Patients with WBC >100,000 may have falsely elevated Potassium levels. ??For accurate Potassium quantification in these patients send serum separator tube (gold top) for subsequent determinations. ??Contact the Clinical Chemistry Laboratory if there are any questions. Chloride 104 98 - 107 mmol/L [facility] Carbon Dioxide 23 22 - 31 mmol/L [facility] Anion Gap 11 5 - 15 mmol/L [facility] Calcium 9.8 8.5 - 10.5 mg/dL [facility] Protein, Total 7.2 6.1 - 8.0 g/dL [facility] Albumin 4.6 3.2 - 5.2 g/dL [facility] Aspartate Aminotransferase 23 0 - 30 unit/L [facility] Alanine Aminotransferase 35(H) 0 - 30 unit/L [facility] Alkaline Phosphatase 117(H) 35 - 105 unit/L [facility] Bilirubin, Total 0.2 0.2 - 1.3 mg/dL [facility] Est Glomerular Filtration Rate 90 >=60 mL/min/1. 73 m?? [facility] Comment: This patient? s estimated [...] In Lab Dylan Kendrick MD CHEMISTRY ORDERABLES [facility] [place] [address] * MRI Breast wwo Contrast Bilat (10/23/2021 6:15 PM EST) Anatomical Region Laterality Modality Breast Bilateral Magnetic Resonan ce Impressions 10/24/2021 5:06 PM EST 1. ??Right breast cancer without evidence of multifocal or multicentric disease.] 2. ??Right rib lesion likely representing a healing rib fracture. CT scan recommended as described above. RECOMMENDATION: 1. ??Definitive treatment of right breast cancer. 2. ??Repeat CT scan to confirm healing right rib fracture and exclude suspicious features. LEFT BREAST BIRADS BI-RADS Category 1: Negative RIGHT BREAST BIRADS BI-RADS Category 6: Known Biopsy-Proven Malignancy Thank you for letting us participate in the care of this patient. ??If you are a health care provider and have any questions regarding this report, please contact the number below. ??For patients who have questions please contact the health care asst that requested your imaging first. ? Electronically signed by: Caty Alberts MD, [facility] ([phone]), at 10/24/2021 5:06 PM Narrative 10/24/2021 5:06 PM EST BILATERAL BREAST MRI CLINICAL INDICATION: Breast cancer staging TECHNIQUE: Multiplanar sequences were obtained pre- and post- Dotarem enhancement, to include SPGR weighted dynamic run-off and subtraction sequences obtained after the intravenous administration of 13 ccs of Dotarem. Computer algorithm analysis for lesion detection and kinetic contrast enhancement curve analysis was performed, using [employer]fab5 software. COMPARISON STUDIES: Compared and/or correlated with prior studies including mammograms and breast ultrasound. FINDINGS: Background Enhancement Pattern (first post Dotarem image): Minimal Amount of Fibroglandular Tissue: Scattered fibroglandular tissue LEFT Breast:There are no suspicious enhancing lesions or areas of abnormal morphology within the left breast. RIGHT Breast:Known right breast cancer corresponds to a subcentimeter spiculated mass. Incidental note is made of 2 adjacent T2 bright enhancing foci consistent with fibrocystic change. No evidence of multifocal or multicentric disease. RIGHT BREAST LESION #1: ??1 x 1 x 1.1 cm Mass Lower outer quadrant ??8 O'Clock 9 cm from the nipple by MRI Mass/post surgical change: Shape: Irregular Margins: Not circumscribed - Spiculated Enhancement: Homogenous Kinetics: Initial upslope: Slow Delayed phase: Progressive Lymph Node Basins/Other: There is no evidence of internal mammary or axillary adenopathy. There is enhancement of right anterior rib with linear low signal series 802 images 62-64 highly suggestive of a healing fracture. Recommend abbreviated CT scan to confirm rib fracture and to exclude suspicious soft tissue component. Dylan Kendrick MD IMG MRI ORDERABLES * Request for 2nd read Mammo (09/22/2021 [...] Negative. Please note: The interpretation of the [facility] Breast Imaging Radiologist subspecialist may differ from the original radiologists interpretation. This is usually not due to a deficiency of the original interpreting radiologist, rather due to the greater skill level afforded by sub-specialization in the field and/or reasonable variations in interpretations. If you have a concern regarding the D-H interpretation you may contact the D Breast Crisis Manager Office at . Thank you for letting us participate in the care of this patient. ??If you are a health care provider and have any questions regarding this report, please contact the number below. ??For patients who have questions please contact the health care asst that requested your imaging first. ? Electronically signed by: Juli Almaraz MD, [facility] ([phone]), at 09/25/2021 12:34 PM Narrative 09/25/2021 12:34 PM EST INTERPRETATION OF OUTSIDE BREAST IMAGING I have been asked to consult on this patient by Dr. Dylan Kendrick ??because he/she believes a review of this study may change or alter the care of this patient. STUDIES FROM: [place], [place]. TYPE OF EXAM Bilateral mammogram 08/11/2021, [...] add comments as necessary): BREAST; Sending Institution [facility]; Date of exam 09/07/2021. FINDINGS: Right Lesion [...] consult on this patient by Dr. Dylan Ledbetter he/she believes a review of this study may change or alter the care ofthis patient. STUDIES FROM: [place], [place]. TYPE OF EXAM Bilateral mammogram 08/11/2021, diagnostic right mammogram 08/14/2021, right breast ultrasound 08/21/2021, ultrasound-guided rightbreast biopsy and post clip right mammogram 09/07/2021. CLINICAL HISTORY: NEW DX Right BREAST CANCER, invasive adenocarcinomaright breast. I believe a reinterpretation of this exam may alter care ofPatient. Yes; What Modality is the exam? Diagnostic; Body Part (please add commentsas necessary): BREAST; Sending Institution [facility]; Date ofexam 09/07/2021. FINDINGS: Right Lesion 1 [...] Negative. Please note: The interpretation of the [facility] BreastImaging Radiologist subspecialist may differ from the original radiologists interpretation. This is usually not due to a deficiency of the original interpreting radiologist, rather due to the greater skill level affordedby sub-specialization in the field and/or reasonable variations ininterpretations. If you have a concern regarding the D-H interpretation [facility] may [facility] at . Thank you for letting us participate in the care of this patient. If youare a health care provider and have any questions regarding this report,please contact the number below. For patients who have questions please contactthe health care asst that requested your imaging first. Dylan Kendrick [...]
--- OUTSIDE RECORDS SUMMARY | 2024-10-26 16:34 | XMS_ITS | Encounter Summary ---
Author Organization [facility] Address [address] [place] [address] Care Team Providers Care Childcare Worker Name Role Phone Unknown, Provider Primary Care Provider Unava ilable Encounter Details Date Type Department Care Team (Late st Contact Info) Description 01/15/2022 Lab Requisition [facility] Pathology & Laboratory Medicine - [address] [address] Outr Resulting Lab, Provider Social History Tobacco [...] Priority Date/Time Associated Diagnosis Comments ZZCOVID-19 TEST [facility] LAB PCR Today 01/15/2022 11:51 EDT COVID-19 TESTING Routine 01/15/2022 11:5 1 EDT documented in this encounter Results * COVID-19 TEST [facility] LAB PCR (01/15/2022 11:51 EDT) Swab 01/15/2022 11:5 1 EDT 01/15/2022 21:54 EDT us Provider Outr Resulting Lab MICROBIOLOGY - GENER AL ORDERABLES Final Result [facility] [address] [place] [address] * COVID-19 TESTING (01/15/2022 11:51 EDT) COVID-19 rt-PCR Result Negative Negative 01/16/2022 13:50 EDT [facility] Comment: This test has not been FDA cleared [...] the authorization is terminated or revoked sooner. Negative results do not preclude 2019-nCoV infection and should not be used as the sole basis for treatment or other patient management decisions. Negative results must be combined with clinical observations, patient history, and epidemiological information. Testing was performed using the ricardo SARS-CoV-2 assay ([employer] on the Ricardo 6800 System Performing Lab Ricardo [address] [facility] Lab 01/16/2022 13:50 EDT [facility] Swab 01/15/2022 11:5 1 EDT 01/15/2022 21:54 EDT us Provider Outr Resulting Lab MICROBIOLOGY - GENER AL ORDERABLES Final Result [facility] [address] [place] [address] documented in this encounter Visit Diagnoses Not on filedocumented in this encounter Care Teams Childcare Worker Relationship Specialty Start Date End Date Unknown, Provider, PCP - General 07/26/17 documented as of this encounter
--- OUTSIDE RECORDS SUMMARY | 2024-10-26 16:34 | XMS_ITS | Encounter Summary ---
Author Organization [facility] Address [address] [place] [address] Care Team Providers Care Color Dipper Name Role Phone Unknown, Provider Primary Care Provider Unava ilable Encounter Details Date Type Department Care Team (Late st Contact Info) Description 09/28/2021 Lab Requisition [facility] Pathology & Laboratory Medicine - [address] [address] Outr Resulting Lab, Provider Social History Tobacco [...] Comments ZZCOVID-19 TEST [facility] LAB PCR Today 09/28/2021 15:38 EST COVID-19 TESTING Routine 09/28/2021 15:3 8 EST documented in this encounter Results * COVID-19 TEST [facility] LAB PCR (09/28/2021 15:38 EST) Swab 09/28/2021 15:3 8 EST 09/28/2021 21:03 EST us Provider Outr Resulting Lab MICROBIOLOGY - GENER AL ORDERABLES Final Result [facility] [address] [place] [address] * COVID-19 TESTING (09/28/2021 15:38 EST) COVID-19 rt-PCR Result Negative Negative 09/29/2021 15:40 EST [facility] Comment: This test has not [...] was performed using the ricardo SARS-CoV-2 assay ([employer] on the Ricardo 6800 System Performing Lab Ricardo [address] [facility] Lab 09/29/2021 15:40 EST [facility] Swab 09/28/2021 15:3 8 EST 09/28/2021 21:03 EST us Provider Outr Resulting Lab MICROBIOLOGY - GENER AL ORDERABLES Final Result [facility] [address] [place] [address] documented in this encounter Visit Diagnoses Not on filedocumented in this encounter Care Teams Color Dipper Relationship Specialty Start Date End Date Unknown, Provider, PCP - General 07/26/17 documented as of this encounter
--- OUTSIDE RECORDS SUMMARY | 2024-10-26 16:34 | XMS_ITS | Encounter Summary ---
[place] [address] Care Team Providers Care Plant Mechanic Name Role Phone Brittany Wynne MD Primary Care Provider + Encounter Details Date Type Department Care Team (Late st Contact Info) Description 10/26/2021 Patient Outreach Hematology [place] [phone] Maddi Price, RN Social History Tobacco Use [...] Progress Notes * Maddi Price, RN - 10/26/2021 2:22 PM EST Comprehensive Breast Program (CBP) Nurse Navigator Note Gena Morales is a 55 y.o. female with right breast cancer. I met with the patient before her surgical oncology consultation. She is interested in partial mastectomy if recommended. 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 Her son, DIL and granddaughter live with her and this helps with expenses. Her in 12/2020 from liver cancer. She kept his federal BC/BS policy. She also has Medicaid and feels she is covered by her health insurance for healthcare related bills. She does worry about finances given her upcoming treatment and time she won'tbe able to work in her business. Plans to meet with our child protective services social worker today. SPECIFIC TEACHIN. Breast Cancer Treatment Handbook (Aleida Martel, 2017) was sent via mail. 2. Information from our Shared Decision-Marking Program on Early-Stage Breast Cancer previously provided and viewed. 3. She understands she will meet with a medical oncologist and, possibly, a radiation oncologist (prefers [facility], about 45 miles from her home) after surgery. 4. Contact phone number for questions or concerns in the immediate post- operative period. 5. Comprehensive Breast Program Binder provided. 6. Post Breast Surgery Exercises handout created by physical therapists at [facility] to begin after partial mastectomy and continue until she is back to her baseline 7. Breast Cancer Treatment Process care map provided and reviewed. 8. Things to Consider...What I Wish I Knew advice from breast cancer patients handout provided. 9. Contact information for the General Surgery Clinic Nurses was given and the Doctor non acoustic operator system explained. Twenty minutes was spent in education and providing support. Gena has our contact information. She will schedule surgery on way out (in 4L) today. Pre-op MRI: Yes Abnormalities detected No (other than index lesion) documented in this encounter Plan of Treatment Upcoming Encounters Date Type Department Care Team (Late st Contact Info) Description 01/11/2025 1:00 PM EDT Office Visit Radiation Oncology at [address] [phone] Misty Llanos MD [facility] [place] [address] 08/23/2025 1:10 PM EST Appointment Mammography/DXA at [place] [phone] Jody Tam [facility] [place] [address] 08/23/2025 2:10 PM EST Office [place] [phone] Jody Tam [facility] [place] [address] documented as of this encounter Visit Diagnoses Not on filedocumented in this encounter Care Teams Plant Mechanic Relationship Specialty Start Date End Date Brittany Wynne MD [address] [place] [address] [place] [address] PCP - General Family Medicine 10/23/21 documented as of this encounter
--- OUTSIDE RECORDS SUMMARY | 2024-10-26 16:34 | XMS_ITS | Encounter Summary ---
Author Organization [facility] Address [facility] [place] [address] Care Team Providers Care Roll Setter Name Role Phone Brittany Wynne MD Primary Care Provider + Encounter Details Date Type Department Care Team (Late st Contact Info) Description 10/27/2021 Orders [place] [phone] Dylan Kendrick MD [facility] [place] [address] Malignant neoplasm of right breast in female, [...] EDT Office Visit Radiation Oncology at [address] [phone] Misty Llanos MD [facility] [place] [address] 08/23/2025 1:10 PM EST Appointment Mammography/[place] [phone] Jody Tam NATIONAL COVERAGE SPECIALIST [facility] [place] [address] 08/23/2025 2:10 PM EST Office [place] [phone] Jody Tam [facility] [address] documented as of this encounter Results * Mammo Specimen Right [...] who have questions please contact the health home health care respiratory therapist that requested your imaging first. ? Narrative 11/20/2021 12:04 PM EST EXAMINATION: Specimen [...] margins. Dylan Kendrick MD IMG MAMMO ORDERABLES * Mammo Viola Node Injection (11/20/2021 9:48 AM EST) Anatomical Region Laterality Modality Breast N/A Mammography Impressions 11/21/2021 4:02 PM EST Status [...] who have questions please contact the health home health care respiratory therapist that requested your imaging first. ? Narrative 11/21/2021 4:02 PM EST NEEDLE LOCALIZATION OF LESION IN THE RIGHT BREAST AND SENTINEL NODE INJECTION CLINICAL HISTORY: Please needle localize right breast for cancer lesion. Viola node injection. TECHNIQUE: Informed consent was confirmed [...] the images/test and approve the above interpretation. Dylan Kendrick MD IMG MAMMO ORDERABLES * Mammo US Needle Localization Right (11/20/2021 [...] who have questions please contact the health home health care respiratory therapist that requested your imaging first. ? Narrative 11/21/2021 4:02 PM EST NEEDLE LOCALIZATION OF LESION IN THE RIGHT BREAST AND SENTINEL NODE INJECTION CLINICAL HISTORY: Please needle localize right breast for cancer lesion. Viola node injection. TECHNIQUE: Informed consent was confirmed [...] breast documented in this encounter Care Teams Roll Setter Relationship Specialty Start Date End Date Brittany Wynne MD [address] [place] [address] [place] [address] PCP - General Family Medicine 10/23/21 documented as of this encounter
--- OUTSIDE RECORDS SUMMARY | 2024-10-26 16:34 | XMS_ITS | Encounter Summary ---
Author Organization [facility] [place] [address] Care Team Providers Care Law Office Assistant Name Role Phone Brittany Wynne MD Primary Care Provider + Encounter Details Date Type Department Care Team (Latest Contact Info) Description 10/23/2021 2:48 PM EST - 10/23/2021 3:44 PM EST Hospital [place] [phone] Juli Almaraz MD [facility] DIAGNOSTIC [place] [address] Abnormal finding on breast imaging Discharge Disposition: Home Social History Tobacco Use [...] EDT Office Visit Radiation Oncology at [address] [phone] Misty Llanos MD [facility] DR [place] [address] 08/23/2025 1:10 PM EST Appointment Mammography/[place] [phone] Jody Tam APRN [facility] [place] [address] 08/23/2025 2:10 PM EST Office [place] [phone] Jody Tam APRN [facility] [place] [address] documented as of this encounter Procedures Procedure Name Priority Date/Time Associated Diagnosis Comments MAMMO DIAGNOSTIC CAD RIGHT Routine 10/23/2021 3:38 PM EST Abnormal finding on breast imaging documented in this encounter Results * Mammo Diagnostic Cad Right (10/23/2021 3:38 PM EST) Anatomical Region Laterality Modality Breast Right Mammography Impressions 10/23/2021 3:46 PM EST Two-year stability of probably benign calcifications in the right far posterior lower central aspect. Correlate with breast MRI to be performed subsequently for staging of known right breast cancer and related to the microcalcifications. BI-RADS Category 6: Known Biopsy-Proven Malignancy Thank you for letting us participate in the care of this patient. ??If you are a health care provider and have any questions regarding this report, please contact the number below. ??For patients who have questions please contact the health skin care instructor that requested your imaging first. ? Narrative 10/23/2021 3:46 PM EST EXAMINATION: MAMMO DIAGNOSTIC CAD RIGHT CLINICAL HISTORY: abnormal mammo TECHNIQUE: Spot compression magnification CC and spot compression magnification true lateral views were obtained of the right breast deep central aspect. COMPARISON: Compared to prior mammograms dating back to 2013. FINDINGS: There are faint diffuse punctate and predominantly rounded calcifications in the right far posterior breast is not depicted as a suspicious cluster in the true lateral view. The calcifications could be seen retrospectively from a mammogram 2 years ago 10/23/2019, unchanged, consistent with a benign process. Juli Almaraz MD IMG MAMMO ORD ERABLES documented in this encounter Visit Diagnoses Diagnosis Abnormal finding on breast imaging Other (abnormal) findings on radiological examination of breast documented in this encounter Care Teams Law Office Assistant Relationship Specialty Start Date End Date Brittany Wynne MD [address] [place] [address] [place] [address] PCP - General Family Medicine 10/23/21 documented as of this encounter
--- OUTSIDE RECORDS SUMMARY | 2024-10-26 16:34 | XMS_ITS | Encounter Summary ---
Author Organization [facility] [place] [address] Care Team Providers Care Group Rooms Coordinator Name Role Phone Unavailable Primary Care Provider Unavailabl e Encounter Details Date Type Department Care Team (Late st Contact Info) Description 10/23/2019 Ancillary Procedure Radiology Library at [facility] [place] [phone] Bettina Chong MD [facility] [place] [address] Social History Tobacco Use Types Packs/Day Years [...] PM EDT Office Visit Radiation Oncology at [address] [phone] Misty Llanos MD [facility] RADIATION [place] [address] 08/23/2025 1:10 PM EST Appointment Mammography/[place] [phone] Jody Tam APRN [facility] [place] [address] 08/23/2025 2:10 PM EST Office [place] [address] Jody Tam, [facility] [place] [address] documented as of this encounter Procedures Procedure Name Priority Date/Time Associated Diagnosis Comments FILM LIBRARY STORAGE ONLY MAMMO Routine 10/23/2019 12:00 AM EST documented in this encounter Results * Film Library- Storage Only Mammo (10/23/2019 12:00 AM EST) Narrative [facility] - 09/22/2021 8:41 AM EST This exam is auto-finalizing. It's purpose is for storage only. Bettina Chong MD IMG FILM LIBRARY O RDERABLES [place], [place] documented in this encounter Visit Diagnoses Not on filedocumented in this encounter
--- OUTSIDE RECORDS SUMMARY | 2024-10-26 16:34 | XMS_ITS | Encounter Summary ---
Author Organization [facility] Address [address] [place] [address] Care Team Providers Care Bariatric Surgeon Name Role Phone Unavailable Primary Care Provider Unavailabl e Encounter Details Date Type Department Care Team (Late st Contact Info) Description 04/15/2009 Orders Only [facility] - [facility] ([address] [address] Helga Bonilla NP Social History Tobacco Use [...] Comments HPV DETECTION, HIGH RISK TYPES Routine 04/15/2009 16:16 EDT CYTOPATHOLOGY Routine 04/15/2009 0:00 EDT documented in this encounter Results * HUMAN PAPILLOMA VIRUS DNA TEST (04/15/2009 16:16 EDT) Specimen Description Cervix, ThinPrep vial [facility] Result Negative for HPV types 16, 18, 31, 33, 35, 39, 45, 51, 52, 56, 58, 59, and 68. [facility] Report Status Final 04/27/2009 [facility] 04/15/2009 16:1 6 EDT 04/21/2009 16:16 EDT us Helga Bonilla NP MICROBIOLOGY - GENERAL ORDERABLE S Final Result [facility] [address] [place] [address] * CYTOPATHOLOGY (04/15/2009 0:00 EDT) Pathology Report: CYTOPATHOLOGY REPORT ? Reports generated via electronic interface contain original data; ? however they are lacking the format of the original report. ? Caution should be taken when reading/interpreti ng unformatted reports. ? Name: ? ANGELITO MORALES ? Accession #: ? [id number] ? : ? 1965 (Age: 43) ??F ?Collect Date: ? 04/15/2009 ? Location: ? [facility] ? Receive Date: ? 04/18/2009 ? Provider: ?HELGA BONILLA APRN ? Copy to: ? Specimen/Source: ?Pap Test, Cervix/Endocervix, ThinPrep Imaging System ? with manual evaluation ? Last Menstrual Period: ? 5/7/09 ? Other: ? Additional clinical information: Daily spotting since last menses. ??No menses ?? Ganga-March ? HPVDX - HPV testing requested regardless of diagnosis on current ThinPrep Pap ?? test. ? SPECIMEN ADEQUACY ? Satisfactory for Evaluation ? - transformation zone component present ? GENERAL CATEGORIZATION ? Negative for Intraepithelial Lesion or Malignancy ? Document reviewed and electronically signed by: ? Denise Murali, CT(ASCP) ? Report Date: ??04/21/2009 10:24 ? End of Report ? [facility] 04/15/2009 04/18/2009 us Helga Bonilla TRANSLATION DIRECTOR PATHOLOGY ORDERABLES Final Resul t [facility] [address] [place] [address] documented in this encounter Visit Diagnoses Not on filedocumented in this encounter
--- OUTSIDE RECORDS SUMMARY | 2024-10-26 16:34 | XMS_ITS ---
[place] [address] Care Team Providers Care Rigger Name Role Phone Brittany Wynne MD Primary Care Provider + Asthma Status:Ineligible (Enrolling) Start date:04/08/2024 Enrollment reason:Ineligible - Insurance Mandate Linked medications:tezepelumab-ekko (Active) Linked problems:Asthma (Active) Continued Care and Services Coordination
--- OUTSIDE RECORDS SUMMARY | 2024-10-26 16:34 | XMS_ITS | Encounter Summary ---
[facility] [place] [address] Care Team Providers Care Christian Science Practitioner Name Role Phone Brittany Wynne MD Primary [...] Expiration Date Visits Re quested Visits Authorized [id number] 1 1 Encounter Details Date Type Department Care Team (Late st Contact Info) Description 11/20/2021 11:02 AM EST Anesthesia Event [facility] [address] Reena Felix MD [facility] [place] [address] Anesthesia Record Procedure Summary Procedure Name Responsible Anesthesiologist Anesthesia Start Time Anesthesia Stop Time MASTECTOMY PARTIAL (WRVU 10.13) (Right: Breast) Reena Felix MD 11/20/21 1102 11/20/21 1233 Events Date Time Event Comment 11/20/2021 1100 1102 AN Verify 1102 Start 1102 An Start Data 1105 An Induction 1106 An Intubation 1110 Anesthesia Ready 1158 Break/Relief In I assumed ca re for Break Relief before which we: 1. Identified the patient 2. Identified the responsible provider(s) 3. Reviewed the pertinent medical history 4. Discussed the surgical plan and course 5. Reviewed intra-op anesthesia management and issues during anesthesia 6. Set expectations for the relief (and/or post-procedure) period 7. Allowed opportunity for questions and acknowledgement of understanding REENA FELIX MD 1202 Airway Problems Cough and br onchospasm, lost ETCO2 and difficult to ventilate, when could hear wheezes. Able to deepen and recovered CO2. Will proceed with deeper anesthesia. Albuterol neb ordered for PACU 1233 an stop data 1233 Recovery or ICU Handoff Opal ent care was transferred to the destination unit staff after review of the patient's medical history, current anesthetic/surgical status and plan, according to the Provider Handoff Checklist. 1233 Stop Meds Name Total Midazolam 2 mg fentaNYL 100 mcg IV Lidocaine 60 mg Propofol 320 mg PHENYLephrine 560 mcg ePHEDrine 15 mg Ondansetron 8 mg Dexamethasone 8 mg clindamycin (Cleocin) 900 mg in dextrose 5% 50 mL infusion 900 mg Propofol INF 251.51 mg ketorolac (Toradol) (30 mg/mL) injection 15 mg Lactated Ringers 1,000 mL * Agents Name O2 Air N2O Sevoflurane (et) * Blood No blood administrations on file. Lines, Drains, and Airways Type Details Placement Removal Incision 11/20/21; 1122; Right; breast 11/20/21 1122 by Rosetta Cuevas, ANNA (RETIRED) Peripheral IV Line - Single Lumen 11/20/21; 1057; cephalic vein (lateral side of arm), left; hwdn-jad-newkah catheter system; 20 gauge; reena felix MD; 2 (one by RN, one by me); no longer indicated, removed per policy/procedure, catheter/device intact; 11/20/21; 1336 11/20/21 1057 by Reena Felix MD 11/20/21 1336 by Myrna Bhandari RN Supraglottic Mask Ventilation: No t Attempted (0); LMA Type: iGel; LMA Size: 4; Inserted by: Kerry; Removal Date: 11/20/21; Removal Time: 1242 11/20/21 1105 by Napoleon Payne CRNA 11/20/21 1242 by Myrna Bhandari RN documented in this encounter Social History Tobacco Use Types Packs/Day Years [...] PM EST documented as of this encounter OR Notes * Anesthesia Postprocedure Evaluation - Reena Felix MD - 11/20/2021 1:30 PM EST Department of Anesthesiology Post-procedure Note Patient: Gena Morales Procedure Summary Date: 11/20/21 Room / Location: [address] Anesthesia Start: 1102 Anesthesia Stop: 1233 Procedures: MASTECTOMY PARTIAL (WRVU 10.13) (Right Breast) BIOPSY OR EXCISION OF LYMPH NODE(S), OPEN, DEEP AXILLARY NODE(S) (WRVU 6.43) (Right Axilla) INTRAOPERATIVE ID (MAPPING) SENTINEL LYMPH NODE,INCLUDES INJECTION (WRVU 2.5) (Right ) MODIFIER WITH NEEDLE LOC., LESION #1 (Right ) MODIFIER SENTINEL NODE EXCISION (Right ) Diagnosis: (BREAST CANCER) Surgeons: Dylan Kendrick MD Responsible Provider: Reena Felix MD Anesthesia Type: general ASA Status: 2 All Anesthesia Providers: Anesthesiologist: Reena Felix MD CAR USHER: Napoleon Payne CRNA Vitals Value Taken Time BP 109/78 11/20/21 1326 Temp 36 ??C (96.8 ??F) 11/20/21 1235 Pulse 69 11/20/21 1326 Resp 20 11/20/21 1326 SpO2 98 % 11/20/21 1326 Pain Level 5 11/20/21 1315 Patient Location: PACU/[facility] Level of Consciousness: Awake and Alert Pain Management: Satisfactory Analgesia PONV: None Cardiovascular Status: At Baseline and Hemodynamically Stable Respiratory Status: At Baseline and Room Air Postoperative Fluid Status: Intravascular EUvolemia Possible Anesthetic Complications: NONE apparent at time of evaluation Final Primary Anesthesia Type: General (The anesthetic type performed was the same as planned.) Comments: No problems today with anesthesia. Discussed her wheezing intraop REENA FELIX MD * Anesthesia Preprocedure Evaluation - Reena Felix MD - 11/17/2021 1:41 PM EST Pre-Anesthesia Evaluation for: Gena Morales a 56 y.o. female. Procedure(s): MASTECTOMY PARTIAL (WRVU 10.13) BIOPSY OR EXCISION OF LYMPH NODE(S), OPEN, DEEP AXILLARY NODE(S) (WRVU 6.43) INTRAOPERATIVE ID (MAPPING) SENTINEL LYMPH NODE,INCLUDES INJECTION (WRVU 2.5) MODIFIER WITH NEEDLE LOC., LESION #1 MODIFIER SENTINEL NODE EXCISION Patient Active Problem List Diagnosis Date Noted ??? Malignant neoplasm of right breast in female, estrogen receptor positive 09/29/2021 Past Medical History: Diagnosis Date ??? Asthma ??? COPD (chronic obstructive pulmonary disease) ??? Malignant neoplasm of right breast in female, estrogen receptor positive 09/29/2021 09/07/21 [facility], [place]: ER/IA+/HER2- right breast IDC, low grade Past Surgical History: Procedure Laterality Date ??? APPENDECTOMY ??? CHOLECYSTECTOMY ??? TUBAL LIGATION Social History Tobacco Use ??? Smoking status: Former Smoker Packs/day: 0.50 Types: Cigarettes ??? Smokeless tobacco: Never Used ??? Tobacco comment: off and on since 2017 currently not smoking Substance Use Topics ??? Alcohol use: Not Currently Comment: rare prior Social History Substance and Sexual Activity Drug Use Not Currently ??? Types: Marijuana Comment: edibles on occasion only Allergies Allergen Reactions ??? Amoxicillin Medications: MAR and/or home medications have been reviewed. Physical Exam: Preprocedure Vitals Current as of 11/17/21 1341 No BP, pulse, respiration, SpO2, or temperature recorded. Height: Weight: BMI: IBW: 37.3 kg (82 lb 2.4 oz) Airway Assessment: Mallampati: II TM distance: >3 FB Neck ROM: full Cardiovascular Assessment: Rhythm: regular Pulmonary Assessment: breath sounds clear to auscultation Dental Assessment: Misc Assessment: IV access: Peripheral line Last Filed Perioperative Cognitive Screening None Anesthesia Plan: ASA 2 general, with a(n) intravenous induction 56 y/o here for breast cancer surgery R partial mastectomy PMH: smoker, former, COPD, asthma - feels at baseline, smokers cough in preop, sats 94%, no wheezing. Had her take her inhaler this am. No CP. No GERD PSH: appy, migdalia, TL, PONV remotely Plan : tylenol, GA LMA, scop TD The patient was informed of the risks of anesthesia, and consent was obtained. The risks of anesthesia include, but are not limited to, PONV, pain, sore throat, and other rare but serious complications such as major organ damage, allergies, blood transfusions, intraoperative awareness, and dental/lip trauma. Region - Other Informed Consent: Anesthetic plan and risks discussed with patient. Plan discussed with CAR USHER. Anesthesia Screening documented in this encounter Plan of Treatment Upcoming Encounters Date Type Department Care Team (Late st Contact Info) Description 01/11/2025 1:00 PM EDT Office Visit Radiation Oncology at [address] [phone] Misty Llanos MD [facility] [place] [address] 08/23/2025 1:10 PM EST Appointment Mammography/[place] [phone] Jody Tam APRN [facility] [place] [address] 08/23/2025 2:10 PM EST Office [place] [phone] Jody Tam APRN [facility] [place] [address] documented as of this encounter Visit Diagnoses Not on filedocumented in this encounter Administered Medications Inactive Administered Medications - up to 3 most recent administrations Medication Order MAR Action Action Date Dose Rate Site clindamycin (Cleocin) 900 mg in dextrose 5% 50 mL infusion 900 mg, Intravenous, EVERY 6 HOURS, 1 dose, First dose on Sat11/20/21 at 1045, Administer over 30 Minutes, Do not exceed 30 mg/minute., Intra-Operative (Intra-Procedure), Indication for (Active or Suspected): Prophylaxis Given 11/20/2021 11:14 AM EST 900 mg dexamethasone (Decadron) injection Intravenous, PRN, Starting on Sat11/20/21 at 1114, Until Sat11/20/21 at 1233, Anesthesia Intra-op, Routine Given 11/20/2021 11:14 AM EST 8 mg ePHEDrine sulfate (5 mg/mL) multi-dose injection Intravenous, PRN, Starting on Sat11/20/21 at 1211, Until Sat11/20/21 at 1233, Anesthesia Intra-op, Routine Given 11/20/2021 12:23 PM EST 7.5 mg Given 11/20/2021 12:11 PM EST 7.5 mg fentaNYL (pf) (50 mcg/mL) multi-dose injection Intravenous, PRN, Starting on Sat11/20/21 at 1107, Until Sat11/20/21 at 1233, Anesthesia Intra-op, Routine Given 11/20/2021 11:33 AM EST 50 mcg Given 11/20/2021 11:17 AM EST 25 mcg Given 11/20/2021 11:07 AM EST 25 mcg ketorolac (Toradol) (30 mg/mL) injection Intravenous, PRN, Starting on Sat11/20/21 at 1230, Until Sat11/20/21 at 1233, Anesthesia Intra-op, Routine Given 11/20/2021 12:30 PM EST 15 mg lactated ringers infusion Intravenous, CONTINUOUS PRN, Starting on Sat11/20/21 at 1101, Until Sat11/20/21 at 1233, Anesthesia Intra-op New Bag 11/20/2021 11:01 AM EST lidocaine (pf) (Xylocaine) (20 mg/mL) 2% injection syringe Intravenous, PRN, Starting on Sat11/20/21 at 1107, Until Sat11/20/21 at 1233, Anesthesia Intra-op, Routine Given 11/20/2021 11:07 AM EST 60 mg midazolam (pf) (Versed) (1 mg/mL) multi-dose injection Intravenous, PRN, Starting on Sat11/20/21 at 1102, Until Sat11/20/21 at 1233, Anesthesia Intra-op, Routine Given 11/20/2021 11:02 AM EST 2 mg ondansetron (pf) (Zofran) (2 mg/mL) injection Intravenous, PRN, Starting on Sat11/20/21 at 1227, Until Sat11/20/21 at 1241, Anesthesia Intra-op, Routine Given 11/20/2021 12:27 PM EST 8 mg PHENYLephrine in NS (PF) (JOSE-SYNEPHRINE) 0.8 mg/10 mL (80 mcg/mL) multi-dose injection Syrg Intravenous, PRN, Starting on Sat11/20/21 at 1118, Until Sat11/20/21 at 1233, Anesthesia Intra-op, Routine Given 11/20/2021 12:11 PM EST 160 mcg Given 11/20/2021 12:07 PM EST 160 mcg Given 11/20/2021 12:02 PM EST 80 mcg propofoL (Diprivan) (10 mg/mL) infusion Intravenous, CONTINUOUS PRN, Starting on Sat11/20/21 at 1111, Until Sat11/20/21 at 1233, Anesthesia Intra-op, Routine Rate/Dose Change 11/20/2021 12:12 PM EST 50 mcg/kg/min 18.63 mL/hr Rate/Dose Change 11/20/2021 12:11 PM EST 50 mcg/kg/min 18. 63 mL/hr Rate/Dose Change 11/20/2021 12:02 PM EST 100 mcg/kg/min 37 .26 mL/hr propofoL (Diprivan) 10 mg/mL bolus injection (Anesthesia) Intravenous, PRN, Starting on Sat11/20/21 at 1105, Until Sat11/20/21 at 1233, Anesthesia Intra-op Given 11/20/2021 12:19 PM EST 20 mg Given 11/20/2021 12:12 PM EST 20 mg Given 11/20/2021 12:02 PM EST 50 mg documented in this encounter Care Teams Christian Science Practitioner Relationship Specialty Start Date End Date Brittany Wynne MD [address] [place] [address] [place] [address] PCP - General Family Medicine 10/23/21 documented as of this encounter
--- OUTSIDE RECORDS SUMMARY | 2024-10-26 16:34 | XMS_ITS | Encounter Summary ---
[place] [address] Care Team Providers Care Hotel Room Attendant Name Role Phone Brittany Wynne MD Primary Care Provider + Reason for Referral * Diagnostic Test (Routine) - Closed Specialty Diagnoses / Procedures Referred By Contac t Referred To Contact Radiology Diagnoses Malignant neoplasm of right breast in female, estrogen receptor positive, unspecified site of breast Procedures MRI Breast wwo Contrast Dylan Roman MD [facility] [place] [address] [place] [address] Referral ID Status Reason Start Date Expiration Date V isits Requested Visits Authorized [id number] Closed Specialty Service Requested 09/22/2021 03/23/2023 1 1 Reason for Visit * Diagnostic Test (Routine) - Closed Specialty Diagnoses / Procedures Referred By Sandeep palm Referred To Contact Radiology Diagnoses Malignant neoplasm of right breast in female, estrogen receptor positive, unspecified site of breast Procedures MRI Breast wwo Contrast Dylan Roman MD [facility] [place] [address] [place] [address] Referral ID Status Reason Start Date Expiration Date V isits Requested Visits Authorized [id number] Closed Specialty Service Requested 09/22/2021 03/23/2023 1 1 Encounter Details Date Type Department Care Team (Latest Contact Info) Description 10/23/2021 3:45 PM EST - 10/23/2021 11:59 PM EST Hospital Encounter MRI at [facility] [place] [address] Dylan Kendrick MD [facility] [place] [address] Malignant neoplasm of right breast in female, [...] PM EDT Office Visit Radiation Oncology at [address] [phone] Misty Llanos MD [facility] [place] [address] 08/23/2025 1:10 PM EST Appointment Mammography/[place] [phone] Jody Tam, [facility] [place] [address] 08/23/2025 2:10 PM EST Office [place] [phone] Jody Tam, [facility] [place] [address] documented as of this encounter Procedures Procedure Name Priority Date/Time Associated Diagnosis Comments MRI BREAST WWO CONTRAST BILAT Routine 10/23/2021 6:15 PM EST Malignant neoplasm of right breast in female, estrogen receptor positive, unspecified site of breast documented in this encounter Results * MRI Breast wwo Contrast Bilat (10/23/2021 [...] who have questions please contact the health college and career counselor that requested your imaging first. ? Electronically signed by: Caty Alberts MD, [facility] ([phone]), at 10/24/2021 5:06 PM Narrative 10/24/2021 5:06 PM EST BILATERAL BREAST MRI CLINICAL INDICATION: Breast cancer staging TECHNIQUE: Multiplanar sequences were obtained pre- and post- Dotarem enhancement, to include SPGR weighted dynamic run-off and subtraction sequences obtained after the intravenous administration of 13 ccs of Dotarem. Computer algorithm analysis for lesion detection and kinetic contrast enhancement curve analysis was performed, using Lineagen software. COMPARISON STUDIES: Compared and/or correlated with [...] component. Dylan Kendrick MD IMG MRI ORDERABLES documented in this encounter Visit Diagnoses Diagnosis Malignant neoplasm of right breast in female, estrogen receptor positive, unspecified site of breast documented in this encounter Administered Medications Inactive Administered Medications - up to 3 most recent administrations Medication Order MAR Action Action Date Dose Rate Site gadoterate meglumine (Dotarem) (0.5 mMol/mL) injection solution 0-100 mL 0-100 mL, Intravenous, ONCE PRN, 1 dose, Starting on Sat10/23/21 at 1923, Until Sat10/23/21 at 1923, Per Protocol, Radiology Contrast, Routine Given 10/23/2021 7:23 PM EST 13 mLs documented in this encounter Care Teams Hotel Room Attendant Relationship Specialty Start Date End Date Brittany Wynne MD [address] [place] [address] [place] [address] PCP - General Family Medicine 10/23/21 documented as of this encounter
--- OUTSIDE RECORDS SUMMARY | 2024-10-26 16:34 | XMS_ITS | Clinical Summary ---
Author Organization [facility] Address [address] [place] [address] Care Team Providers Care Molecular Pathologist Name Role Phone Unknown, Provider Primary Care Provider Unava ilable Social History Tobacco Use Types Packs/Day Years Used Date Smoking Tobacco: Never Assessed Comments Unknown Sex and Gender Information Value Date Recorded Sex Assigned at Not on file Legal Sex Female 18:12 EST Gender Identity Not on file Sexual Orientation Not on file Plan of Treatment Health Maintenance Due Date Last Done Comments Hepatitis C Screen 1965 COVID-19 Vaccine (2023- season) 2024 RSV Immunization ( o r 60+ Years) (1 - 1-dose 75+ series) 2038 Insurance [facility] [place] Care Teams Molecular Pathologist Relationship Specialty Start Date End Date Unknown, Provider, PCP - General 07/26/17
--- OUTSIDE RECORDS SUMMARY | 2024-10-26 16:34 | XMS_ITS | Encounter Summary ---
Author Organization [facility] [place] [address] Care Team Providers Care Twisting Press Operator Name Role Phone Unavailable Primary Care Provider Unavailabl e Encounter Details Date Type Department Care Team (Late st Contact Info) Description 09/08/2013 Ancillary Procedure Radiology Library at [facility] [place] [place] [phone] Bettina Chong MD [facility] [place] [address] Social History Tobacco Use Types Packs/Day Years [...] EDT Office Visit Radiation Oncology at [address] [phone] Misty Llanos MD [facility] [place] [address] 08/23/2025 1:10 PM EST Appointment Mammography/[place] [phone] Jody Tam APRN [facility] [place] [address] 08/23/2025 2:10 PM EST Office Visit [place] [address] Jody Tam, [facility] [place] [address] documented as of this encounter Procedures Procedure Name Priority Date/Time Associated Diagnosis Comments FILM LIBRARY STORAGE ONLY MAMMO Routine 09/08/2013 12:00 AM EST documented in this encounter Results * Film Library- Storage Only Mammo (09/08/2013 12:00 AM EST) Narrative [facility] - 09/22/2021 8:52 AM EST This exam is auto-finalizing. It's purpose is for storage only. Bettina Chong MD IMG FILM LIBRARY O RDERABLES [place], [place] documented in this encounter Visit Diagnoses Not on filedocumented in this encounter
--- OUTSIDE RECORDS SUMMARY | 2024-10-26 16:34 | XMS_ITS | Encounter Summary ---
Author Organization [facility] Address [facility] [place] [address] Care Team Providers Care Renal Technician Name Role Phone Brittany Wynne MD Primary [...] Expiration Date Visits Re quested Visits Authorized [id number] 1 1 Encounter Details Date Type Department Care Team (Latest Contact Info) Description 11/20/2021 10:15 AM EST - 11/20/2021 1:49 PM [facility] Hospital Encounter [place] [phone] Dylan Marquez MD [facility] [address] Discharge Disposition: Home Social History Tobacco Use [...] Sign Reading Time Taken Comments Blood Pressure 109/78 11/20/2021 1:26 PM EST Pulse 69 11/20/2021 1:26 PM EST Temperature 36 ??C (96.8 ??F) 11/20/2021 12:35 PM EST Respiratory Rate 20 11/20/2021 1:26 PM EST Oxygen Saturation 98% 11/20/2021 1:26 PM EST Inhaled Oxygen Concentration - - Weight 62.1 kg (137 lb) 11/20/2021 10:32 AM EST Height 149.9 cm (4' 11) 11/20/2021 10:32 AM EST Body Mass Index 27.67 11/20/2021 10:32 AM EST documented in this encounter Discharge Instructions * Discharge Instructions* Myrna Bhandari RN - 11/20/2021 12:56 PM EST At 1100 amyou received 1000 mg of acetaminophen- Your next [...] closest emergency room or call the hospital frame pulley mortising machine operator at [phone] and ask for physician concert pianist covering for your physician. Questions or problems after 5pm or on a weekend: Call the [facility] frame pulley mortising machine operator at and ask for the physician concert pianist covering for your doctor. * Patient Instructions* [...] 101.3 F. The number for questions is [phone] before 5 PM week. Pain Medication: Please [...] AM Nilam Jiang RD [facility] 12/07/2021 11:00 AM Marianela Goldman MD [facility] HEM ONC [facility] 12/07/2021 1:00 PM Dylan Marquez MD [facility] HEM ONC [facility] 12/19/2021 9:[address] Ena J [facility] 12/19/2021 10:00 AM Misty Llanos MD [facility] Rad [facility] 12/19/2021 10:00 AM STJ RAD/ONC, TREATMENT [facility] Rad Trt [facility] Please call [phone] (clinic number) if any changes need to [...] (Nicoderm CQ) 21 mg/24 hr Patch 24 hrIndications:Hannah e smoker Change 1 patch on the [...] Marquez MD - 11/20/2021 11:22 AM EST [facility] Operative Note Patient Name: Gena Morales : [id number] MR#: [id number] Case Date: 11/20/2021 Surgeon: Surgeon(s) and Role: [...] that. The specimen was imaged on the [id number] imaging study. It was then brought back [...] not need to include opening and closing). DYALN MAQRUEZ MD 11/20/2021 documented in this encounter Plan of Treatment Upcoming Encounters Date Type Department Care Team (Late st Contact Info) Description 01/11/2025 1:00 PM EDT Office Visit Radiation Oncology at [address] [phone] Misty Llanos MD [facility] [place] [address] 08/23/2025 1:10 PM EST Appointment Mammography/[place] [phone] [address] [facility] [place] [address] 08/23/2025 2:10 PM EST Office [place] [phone] Jody Tam [facility] [address] documented as of this encounter Procedures Procedure Name Priority Date/Time Associated Diagnosis Comments SPECIMEN TO PATHOLOGY Routine 11/20/2021 12:11 PM EST SURGICAL PATHOLOGY REPORT Routine 11/20/2021 11:38 AM EST SPECIMEN TO PATHOLOGY Routine 11/20/2021 11:38 AM EST MODIFIER SENTINEL NODE EXCISION 11/20/2021 11:02 AM EST BREAST CANCER MODIFIER WITH NEEDLE LOC., LESION #1 11/20/2021 11:02 AM EST BREAST CANCER Intraop Mason Lymph Id W/Dye Injection ([id number]) 11/20/2021 11:02 AM EST BREAST CANCER Bx/Remv, Lymph Node, Deep Axill ([id number]) 11/20/2021 11:02 AM EST BREAST CANCER Mastectomy Partial ([id number]) 11/20/2021 11:02 AM EST BREAST CANCER documented in this encounter Results * Specimen to Pathology (11/20/2021 12:11 PM EST) AP Specimen 11/20/2021 12:1 1 PM EST 11/20/2021 12:11 PM EST Narrative [facility] - 11/20/2021 12:11 PM EST Specimen requisition ordered. ??Separate Pathology report to follow Dylan Marquez MD PATHOLOGY/CYTOLOGY Hugo ARREOLA [facility] [place] [address] * Surgical Pathology Report (11/20/2021 11:38 AM EST) Final Diagnosis [id number] ? Location: [facility] The signing pathologist has [...] Verified: ??11/29/2021 8:53 ?? Pathologist Performed at: ??-[facility] Dept. of Pathology, [place], [place] SYNOPTIC Specimen ? Procedure: ??Excision (less [...] (sentinel and non-sentinel): ??5 ? Number of Mason Nodes Examined: ??5 Pathologic Stage Classification (pTNM, AJCC 8th Edition) ? pT Category: ??pT1b ? Regional Lymph Nodes Modifier: ??(sn): Mason node(s) evaluated. ? pN Category: ??pN0 Additional [...] partial mastectomy, excision (1) B - Right Mason Axillary Lymph node (#151/#7), excision (1) CLINICAL [...] tissue Sections/Processing: Specimen is photographed (slice III) Hedis Nurse sections in 12 cassettes as follows: ?A1: ??Slice I financial services representative, medial-red ?A2-A3: ??Slice II, financial services representative, with posterior-black in A2 and medial-red in A3 ?A4-A5: ??Slice III, lesion to posterior-black, biopsy marker clip site in A4 ?A6: ??Slice III, lesion to inferior-green ?A7: ??Slice III with superior-orange and medial-red ?A8-A9: ??Slice III, with anterior-blue ?A10: ??Hedis Nurse IV, anterior-blue ?A11: ??Hedis Nurse V, anterior-blue ?A12: ??Hedis Nurse , lateral-yellow Ischemic Time: 0.88 B - Labeled/Fixative: Right sentinel axillary lymph node, fresh. . SPECIMEN PROCESSING Quantity/Size: Single, 4.5 x 2.8 x 0.8 cm. Tissue Description: Portion of lobular, solis-yellow fibroadipose tissue with what appear to be five possible nodes ranging from 0.3-0.6 cm Sections/Processing: The benjamin tissue is totally submitted in five cassettes with a single possible noted in each cassette. Hedis Nurse sections in 6 cassettes as follows: ?B1-B5: ??Benjamin tissue, each with a single node ?B6: ??Hedis Nurse adjacent adipose tissue consistent ??pps 11/29/2021 8:53 AM EST [facility] SENTINEL LYMPH NODE / Unknown 11/20/2021 11:38 AM EST 11/20/2021 11:38 AM EST SENTINEL LYMPH NODE / Unknown 11/20/2021 11:38 AM EST 11/20/2021 11:38 AM EST Dylan Marquez MD PATHOLOGY/CYTOLOGY [place] Performing Organization Address City/[facility] Co de Phone Number [facility] [place] [address] * Specimen to Pathology (11/20/2021 11:38 AM EST) AP Specimen 11/20/2021 11:3 8 AM EST 11/20/2021 11:38 AM EST Narrative [facility] - 11/20/2021 11:38 AM EST Specimen requisition ordered. ??Separate Pathology report to follow Dylan Marquez MD PATHOLOGY/CYTOLOGY [place] Performing Organization Address [facility] [place] [address] documented in this encounter Visit Diagnoses Not [...] Given 11/20/2021 12:41 PM EST 2.5 mg lactated ringers infusion 1,000 mL, at 100 mL/hr, Intravenous, CONTINUOUS, Starting on Sat11/20/21 at 1045, Until Sat11/20/21 at 1506, Day of Surgery (Day of Procedure) New Bag 11/20/2021 11:03 AM EST 1,000 mLs 100 mL/hr scopolamine (Transderm Scop) 1 mg over 3 [...] Prophylaxis 1114 (Given - Provid er: Napoleon Payne CRNA) scopolamine (Transderm Scop) 1 mg over [...] prep) documented in this encounter Care Teams Renal Technician Relationship Specialty Start Date End Date Brittany Wynne MD [address] [place] [address] [place] [address] PCP - General Family Medicine 10/23/21 documented as of this encounter
--- OUTSIDE RECORDS SUMMARY | 2024-10-26 16:34 | XMS_ITS | Encounter Summary ---
Author Organization [facility] [address] Care Team Providers Care Bean Viner Name Role Phone Brittany Wynne MD Primary Care Provider + Encounter Details Date Type Department Care Team (Late st Contact Info) Description 10/26/2021 [place] [phone] Alicia Gupta, PROGRAMMING INSTRUCTOR Social History Tobacco Use Types Packs/Day Years [...] this encounter Progress Notes * Alicia Gupta PROGRAMMING INSTRUCTOR - 10/26/2021 3:43 PM EST Reason for visit: I'm able to meet with pt, Rosalinda, to introduce myself as Comprehensive Breast Program administrator social welfare, review this role within CBP team, and to complete psychosocial assessment while sheis here today for surgical consultation with Dr. Kendrick. Presentation: Rosalinda is unaccompanied in the exam room and presents with stable mood, affect appropriate to situation, and warm, personable demeanor. She is conversant with normal speech and volume, makes good eye contact and engages in conversation, providing thoughtful, concise answers to questions about her psychosocial health. Personal/social history: Rosalinda lives with her 33 yo son, his fiance, and granddaughter. She also has a daughter who currently struggles with substance use. Rosalinda's Spring 2020 and shewas very involved in his care until the end. She and her were for 5 years and knew each other for 10; this was Rosalinda's second marriage. She is still working to process grief. 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 She expressesno concern today regarding income, financial stability, or insurance coverage, but will keep an eyeon things as undergoing treatment may effect her income. Adjustment to illness/mental health concerns: Rosalinda acknowledges expectable anxiety for bc dx and reports that it was helpful to learn more about treatment plan during consultation today; she verbalizes understanding that she will have surgery and then 3.5 weeks radiation up at [facility]. She would liketo review/fill out [place] advance directives, as she was involved in this process with her as well, and she recognizes the importance of having this documentation in place. We arrange for me to mail the forms to her, and that she can have them notarized here in an upcoming visit. We also review resources available to reduce/manage stress, including referrals for individual or group therapy, support groups/classes, as well as collateral supports for wellness such as massage ormeditation. Summary of visit: Rosalinda today denies concerns regarding issues such as income/finances, insurance, transportation, or basic needs that could impact her ability to fully engage with treatment. She verbalizes understanding of available social work services outlined in our discussion today and accepts my contact information. She agrees to reach out as needed, and accepts [employer] gas card per lengthy distance traveled. Plan: I will be available Rosalinda throughout treatment and recovery to assess and respond to psychosocial needs. Completed today: Brief assessment Advance care planning Transportation resources Leelee Gupta [facility] Comprehensive Breast Program/[place] [address] Pager #[phone] documented in this encounter Plan of Treatment Upcoming Encounters Date Type Department Care Team (Late st Contact Info) Description 01/11/2025 1:00 PM EDT Office Visit Radiation Oncology at [address] [phone] Misty Llanos MD [facility] [place] [address] 08/23/2025 1:10 PM EST Appointment Mammography/[place] [phone] Jody Tam, [facility] [place] [address] 08/23/2025 2:10 PM EST Office [place] [phone] Jody Tam [facility] [place] [address] documented as of this encounter Visit Diagnoses Not on filedocumented in this encounter Care Teams Bean Viner Relationship Specialty Start Date End Date Brittany Wynne MD [address] [place] [address] [place] [address] PCP - General Family Medicine 10/23/21 documented as of this encounter
--- OUTSIDE RECORDS SUMMARY | 2024-10-26 16:34 | XMS_ITS | Encounter Summary ---
Author Organization [facility] [place] [address] Care Team Providers Care Chief Resource Officer Name Role Phone Brittany Wynne MD Primary Care Provider + Encounter Details Date Type Department Care Team (Late st Contact Info) Description 11/13/2021 Patient Outreach Hematology [place] [phone] Maddi Price, RN Social History Tobacco Use [...] of this encounter Progress Notes * Maddi Price RN - 11/13/2021 12:52 PM EST [facility] Nurse Navigator Call??for the Comprehensive Breast Program (CBP) ?? Gena Morales is a 56 y.o. female with recently diagnosed ER/SD+/HER2- right breast invasive ductal carcinoma (right breast biopsy 09/07/[address] [facility]). She met with Dr. Kendrick in surgical consultation on 10/26. Partial mastectomy and SLN surgery is scheduled on 11/20 at the [facility]. Reason for call: Ginna LM that she has been stressed out a lot recently and smoked a couple of cigarettes. She states one of the oncologists in [facility] (Dr. Misty Llanos) prescribed a nicotinepatch for her. She would like to know if it is ok to have this on during surgery or when she will need to remove it before surgery. Plan: Message sent to Dr. Kendrick with her question. Addendum 11/14/21: Per Dr. Kendrick she can wear her nicotine patch right until surgery. This messagewas sent to Gena via [facility] on 11/14. She thanked us for our time. documented in this encounter Plan of Treatment Upcoming Encounters Date Type Department Care Team (Late st Contact Info) Description 01/11/2025 1:00 PM EDT Office Visit Radiation Oncology at [address] [phone] Misty Llanos MD [facility] DR [place] [address] 08/23/2025 1:10 PM EST Appointment Mammography/[place] [phone] Jody Tam, [facility] [place] [address] 08/23/2025 2:10 PM EST Office [place] [phone] Jody Tam, [facility] [place] [address] documented as of this encounter Visit Diagnoses Not on filedocumented in this encounter Care Teams Chief Resource Officer Relationship Specialty Start Date End Date Brittany Wynne MD [address] [place] [address] [place] [address] PCP - General Family Medicine 10/23/21 documented as of this encounter
--- OUTSIDE RECORDS SUMMARY | 2024-10-26 16:34 | XMS_ITS | Encounter Summary ---
Author Organization [facility] [place] [address] Care Team Providers Care Supervisor Brake Repair Name Role Phone Unavailable Primary Care Provider Unavailabl e Encounter Details Date Type Department Care Team (Late st Contact Info) Description 08/11/2021 Ancillary Procedure Radiology Library at [facility] [place] [phone] Bettina Chong MD [facility] [place] [address] Social History Tobacco Use Types Packs/Day Years [...] PM EDT Office Visit Radiation Oncology at [address] [phone] Misty Llanos MD [facility] [place] [address] 08/23/2025 1:10 PM EST Appointment Mammography[place] [phone] Jody Tam APRN [facility] [place] [address] 08/23/2025 2:10 PM EST Office Visit General Surgery at [facility] [place] [address] Jody Tam, [facility] [place] [address] documented as of this encounter Procedures Procedure Name Priority Date/Time Associated Diagnosis Comments FILM LIBRARY STORAGE ONLY MAMMO Routine 08/11/2021 12:00 AM EDT documented in this encounter Results * Film Library- Storage Only Mammo (08/11/2021 12:00 AM EDT) Narrative [facility] - 09/22/2021 8:42 AM EST This exam is auto-finalizing. It's purpose is for storage only. Bettina Chong MD IMG FILM LIBRARY O RDERABLES [place], [place] documented in this encounter Visit Diagnoses Not on filedocumented in this encounter
--- OUTSIDE RECORDS SUMMARY | 2024-10-26 16:34 | XMS_ITS | Referral Summary ---
Author Organization [facility] Address [address] [place] [address] Care Team Providers Care Parts Department Manager Name Role Phone Unknown, Provider Primary Care Provider Unava ilable Social History Tobacco Use Types Packs/Day Years Used Date Smoking Tobacco: Never Assessed Comments Unknown Sex and Gender Information Value Date Recorded Sex Assigned at Not on file Legal Sex Female 18:12 EST Gender Identity Not on file Sexual Orientation Not on file Plan of Treatment Not on file Insurance [facility] [place] [facility] Address: [address] [place] [address] MEDICAID [place] Care Teams Parts Department Manager Relationship Specialty Start Date End Date Unknown, Provider, PCP - General 07/26/17
--- OUTSIDE RECORDS SUMMARY | 2024-10-26 16:34 | XMS_ITS | Encounter Summary ---
Author Organization [facility] Address [facility] [place] [address] Care Team Providers Care Conference Assistant Name Role Phone Brittany Wynne MD Primary Care Provider + Reason for Referral * Consultation (Routine) - Closed Specialty Diagnoses / Procedures Referred By Sandeep palm Referred To Contact Radiation Oncology Diagnoses Malignant neoplasm of lower-outer quadrant of right female breast, unspecified estrogen receptor status Procedures Simulation for Radiation Therapy Planning Misty Llanos MD [facility] [place] [address] [facility] Rad Onc Office [address] [place] [phone] Referral ID Status Reason Start Date Expiration Date V isits Requested Visits Authorized [id number] Closed Consult, Test & Treat 11/13/2021 11/13/2022 21 21 * Consultation (Routine) - Closed Specialty Diagnoses / Procedures Referred By Sandeep palm Referred To Contact Hematology and Oncology Diagnoses Hormone receptor positive malignant neoplasm of right breast Misty Llanos MD [facility] [place] [address] [facility] Hem Onc Office [address] [place] [phone] Referral ID Status Reason Start Date Expiration Date V isits Requested Visits Authorized [id number] Closed Continuity of Care 11/13/2021 11/13/2022 1 1 Reason for Visit * Reason Comments Radiation Consult * Consultation (Routine) - Closed Specialty Diagnoses / Procedures Referred By Contac t Referred To Contact Radiation Oncology Diagnoses Breast cancer Dylan Kendrick MD [facility] [place] [address] Misty Llanos MD [facility] [place] [address] Referral ID Status Reason Start Date Expiration Date Visits Re quested Visits Authorized [id number] Closed 10/30/2021 10/30/2022 1 1 Encounter Details Date Type Department Care Team (Late st Contact Info) Description 11/13/2021 10:00 AM EST Office Visit Radiation Oncology at [address] [phone] Misty Llanos MD [facility] [place] [address] Cigarette smoker; Hormone receptor positive malignant neoplasm of right breast; Malignant neoplasm of lower-outer quadrant of right female breast, unspecified estrogen receptor status Social History Tobacco Use Types Packs/Day Years [...] Sign Reading Time Taken Comments Blood Pressure 115/83 11/13/2021 10:01 AM EST Pulse 78 11/13/2021 10:01 AM EST Temperature 36.6 ??C (97.8 ??F) 11/13/2021 1 0:01 AM EST Respiratory Rate 18 11/13/2021 10:0 1 AM EST Oxygen Saturation 96% 11/13/2021 10: 01 AM EST Inhaled Oxygen Concentration - - Weight 62.5 kg (137 lb 12.8 oz) 022 10:01 AM EST Height - - Body Mass Index 28.8 10/26/2021 1:45 PM EST documented in this encounter Patient Instructions * Patient Instructions* Misty Llanos MD - 11/13/2021 10:00 AM EST CTsimulation T., 12/19/21 @ 10, arrive by 9:30, [facility], [facility]. Prescription for Nicoderm CQ sent to [facility]. Someone will call you to schedule Nutrition consult. documented in this encounter Progress Notes * Taylor Bridges RN - 11/13/2021 10:00 AM EST RADIATION ONCOLOGY NURSING INITIAL NURSING ASSESSMENT IDENTIFICATION: Gena Moraels is a 56 y.o. year-old female with right breast cancer. ER+ ND+/Her2 negative. PRESENTING SYMPTOMS/CHIEF COMPLAINT: Presented with abnormal screening mammogram leading to furtherworkup and diagnosis. REVIEW OF SYSTEMS: Review of Systems Constitutional: Negative for unexpected weight change (gained about 10# wt with quitting smoking again). Respiratory: Negative for cough, hemoptysis and shortness of breath (doing pretty good in relation to COPD/asthma). Cardiovascular: Negative for chest pain. IN THE PAST 12 MONTHS HAVE YOU: Fallen more than one time? No Injured yourself as result of the fall? N/a Experienced difficulty with walking/problems with balance? No Do you use any assistive devices? No Any history of collagen vascular diseases: No Any Implanted Devices/Hardware: No If yes please put alert in ARIA patient summary Prior Radiotherapy: No Prior Chemotherapy: No Prior Hormone Therapy: No LEARNING ASSESSMENT REVIEWED: Yes ADVANCED DIRECTIVE: Deferred PAIN ASSESSMENT: 0] out of 10 *eD-H Adult PCS Flow Sheet if 4 or above SOCIAL ASSESSMENT: See EDH social assessment information entered. Support Systems: Son, good supports Barriers to treatment: None identified. Referrals/Interventions: CONSULTING BUSINESS DEVELOPER per routine on day of simulation. Patient declined CONSULTING BUSINESS DEVELOPER visit today. RADIATION SPECIFIC TEACHING: X NCI Radiation Therapy and You Site specific teaching : Breast teaching to be done by nursing on day of simulation. Other: PLAN: Per Dr. Llanos * Misty Llanos MD - 11/13/2021 10:00 AM EST Images from the original note were not included. CC: Referred by Dr. Wynne for eval for xrt for breast ca. HPI: Gena is a 56 y/o f who presented w/R breast abnlty on screening mmg. DH interp 08/11/21 B screening mmg, 08/14/21 dx'ic R mmg, 08/21/21 R breast US & 09/07/21 US guided core needle bx R breast: R breast lesion #1 is known R breast malignancy, being a 1.1 cm irregular mass @ 8:00, 6 cm from nipple. R breast lesion #2 is an indeterminate group of microcalcs @ 6:00,9 cm from nipple, for which additional imaging recommended. 09/07/21 core needle bx R breast @ 8:00, 6 cm from nipple. Path: IDC, low gr, ER+ND+, Her2-. 10/23/21 dx'ic R mmg: Two-year stability of probably benign calcifications in the right far posterior lower central aspect. Correlate with breast MRI to be performed subsequently for staging of known right breast cancer and related to the microcalcifications. ?? 10/23/21 MRI B breasts: R breast ca seen as 1.1 cm mass @ 8:00. R anterior rib lesion highly suggestive of healing fx. 10/26/21 Dr. Kendrick exam w/o breast mass/adenopathy. Subjective: Had R rib cage pain for about a month after R breast bx & then it resolved. ROM arms around shoulders ok. No hand/arm swelling. Energy level good. 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 Past Medical History: Diagnosis Date ??? Asthma ??? COPD (chronic obstructive pulmonary disease) ??? Malignant neoplasm of right breast in female, estrogen receptor positive 09/29/2021 09/07/21 bx [facility], [place]: ER/ND+/HER2- right breast IDC, low grade No lupus/scleroderma. No prior xrt. Past Surgical History: Procedure Laterality Date ??? APPENDECTOMY ??? CHOLECYSTECTOMY ??? TUBAL LIGATION Your Medications Accurate as of November 13, 2021 10:13 AM. If you have any questions, ask your nurse or doctor. Continued medications, unchanged Dose Details acetaminophen 500 mg Tab Commonly known as: Tylenol Take 1,000 mg by mouth every 6 hours as needed for Pain. 1,000 mg Refills: 0 albuteroL 90 mcg/actuation Hfaa Refills: 0 ipratropium-albuteroL 0.5 mg-3 mg(2.5 mg base)/3 mL Nebu Commonly known as: Duoneb Refills: 0 loratadine 10 mg Tab Commonly known as: Claritin Take 10 mg by mouth daily. 10 mg Refills: 0 montelukast 10 mg Tab Commonly known as: Singulair Refills: 0 Wixela Inhub 500-50 mcg/dose Dsdv Generic drug: fluticasone propion-salmeteroL Refills: 0 FHx: Neg for ca. P&SHx: Smoker x 30 yrs, quarter to half ppd. 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 Physical Exam Constitutional: General: She is not in acute distress. Comments: BP 115/83 (Patient Position: Sitting) Pulse 78 Temp 36.6 ??C (97.8 ??F) (Temporal) Resp 18 Wt 62.5 kg (137 lb 12.8 oz) SpO2 96% BMI 28.80 kg/m?? HENT: Head: Normocephalic. Eyes: General: No scleral icterus. Right eye: No discharge. Left eye: No discharge. Extraocular Movements: Extraocular movements intact. Conjunctiva/sclera: Conjunctivae normal. Pulmonary: Effort: Pulmonary effort is normal. No respiratory distress. Breath sounds: No stridor. Chest: Breasts: Right: Inverted nipple (entire life) and mass (1.5 cm mobile mass @ 8:00, 3 cm from NAD, no involvement of overlying skin) present. No nipple discharge, skin change, tenderness, axillary adenopathy or supraclavicular adenopathy. Left: Inverted nipple (entire life) present. No mass, nipple discharge, skin change, tenderness, axillary adenopathy or supraclavicular adenopathy. Abdominal: General: There is no distension. Palpations: Abdomen is soft. There is no mass. Tenderness: There is no abdominal tenderness. There is no guarding or rebound. Musculoskeletal: General: No swelling or tenderness. Normal range of motion. Cervical back: Normal range of motion and neck supple. No tenderness. Lymphadenopathy: Head: Right side of head: No [...] Thought content normal. Judgment: Judgment normal. A: Breast ca, R IDC, low gr, ER+ND+, Her2-, s/p core needle bx, cT1 cN0. P: Discussed role of xrt to R breast after lumpectomy & SNB, which is scheduled for 11/20/21. Xrt to R breast recommended to improve likelihood of cure. Assuming separate field not needed to treat lymphatics, which will depend on pathology report, xrt would be given in 20 fxs. If separate field needed to treat lymphatics, xrt would likely be given in33 fxs. Possible side effects of xrt to breast discussed, w/acute/immediate side effects including: Pinkening, soreness & peeling of skin in treated area; swelling of treated breast; soreness of treated breast; cough; shortness of breath; tiredness. Late/bed bug exterminator side effects to breast discussed include: Treated breast may shrink, become firmer & sit higher on chest; achiness/stiffness of chest wall on treated side; rib fracture on treated side; CT after xrt may show scarring w/in small volume of lung on treated side; very small risk of ra diotherapy associated 2nd malignancy. Need for CTsim prior to xrt discussed. She would like to proceed w/plan for xrt after lumpectomy & SNB. CTsim 12/19/21. Smoking cessation recommended & Nicoderm CQ patch rx'd. She would like Nutrition consult, which is requested. Dr. Jones mejia for systemic tx 12/07/21. Dr. Kendrick postop check 12/07/21. 80 mins in encounter. documented in this encounter Plan of Treatment Upcoming Encounters Date Type Department Care Team (Late st Contact Info) Description 01/11/2025 1:00 PM EDT Office Visit Radiation Oncology at [address] [phone] Misty Llanos MD [facility] [place] [address] 08/23/2025 1:10 PM EST Appointment Mammography/DXA at [place] [phone] Jody Tam APRN [facility] [place] [address] 08/23/2025 2:10 PM EST Office Visit General Surgery at [place] [phone] Jody Tam APRN [facility] [place] [address] Scheduled Orders Name Type Priority Associated Diagnoses Orde r Schedule Simulation for Radiation Therapy Planning Procedures Routine Malignant neoplasm of lower-outer quadrant of right female breast, unspecified estrogen receptor status Ordered: 11/13/2021 Scheduled Referrals Name Type Priority Associated Diagnoses Orde r Schedule Referral to Nutrition Services Outpatient Referral Routine Hormone receptor positive malignant neoplasm of right breast Ordered: 11/13/2021 documented as of this encounter Visit Diagnoses Diagnosis Cigarette smoker Tobacco use disorder Hormone receptor positive malignant neoplasm of right breast Malignant neoplasm of lower-outer quadrant of right female breast, unspecified estrogen receptor status documented in this encounter Care Teams Conference Assistant Relationship Specialty Start Date End Date Brittany Wynne MD [address] [place] [address] [place] [address] PCP - General Family Medicine 10/23/21 documented as of this encounter
--- OUTSIDE RECORDS SUMMARY | 2024-10-26 16:34 | XMS_ITS | Encounter Summary ---
Author Organization [facility] Address [address] [place] [address] Care Team Providers Care Logistics Supply Officer Name Role Phone Unknown, Provider Primary Care Provider Unava ilable Encounter Details Date Type Department Care Team (Late st Contact Info) Description 07/25/2017 Results Only [facility] [phone] Neda Cline MD [address] [place] [address] [place], [place] [id number] Social History Tobacco Use Types Packs/Day Years [...] Procedure Name Priority Date/Time Associated Diagnosis Comments PAP TEST- RESULT ONLY Routine 07/25/2017 0:00 EDT documented in this encounter Results * PAP TEST- RESULT ONLY (07/25/2017 0:00 EDT) Pathology Report: CYTOPATHOLOGY REPORT Reports generated via electronic interface contain original data; however they are lacking the format of the original report. Caution should be taken when reading/interpreti ng unformatted reports. Name: ? ANGELITO MORALES ? Accession #: ? [id number] ? : ? 1965 (Age: 51) ??F ?Collect Date: ? 07/25/2017 ? Location: ? [facility] ? Receive Date: ? 07/30/2017 ? Provider: NEDA CLINE MD Copy to: ? Final Report SPECIMEN ADEQUACY ? Satisfactory for Evaluation - assessment of transformation zone component not applicable ( e.g. atrophy, vaginal sample, hysterectomy) - scant squamous epithelial component GENERAL CATEGORIZATION ? Negative for Intraepithelial Lesion or Malignancy ?? Last Menstrual Period: 2009 Hormonal/Contracep tive status: None Other: Previous NIL Pap(s): 03/29 Specimen/Source: ??Pap Test, Cervix, ThinPrep Imaging System with manual evaluation Document reviewed and electronically signed by: ? PATRIA Rodgers(ASCP) ? Report ??Date: 08/08/2017 15:28 HPV with Pap Test ? Date Ordered: ? 08/08/2017 ? Status: ?? Signed Out ?Date Complete: ? 08/09/2017 ? By: ??System Interface ? Date Reported: ? 08/09/2017 ? Interpretation RESULT: Negative for HPV. No E6 or E7 mRNA is detected from HPV types 16,18,31,33,35, 39,45,51,52,56,58, 59,66, and 68 by houseperson mediated amplification. Comments Document reviewed and electronically signed by: ? System Interface ? Report date: 08/09/2017 By the signature above, the attending physician certifies that he/she has personally conducted a gross and/or microscopic examination of the described specimens and rendered or confirmed the above diagnosis. End of Report [facility] 07/25/2017 07/30/2017 us Neda Cline MD PATHOLOGY ORDERABLES F inal Result [facility] [address] [place] [address] documented in this encounter Visit Diagnoses Not on filedocumented in this encounter Care Teams Logistics Supply Officer Relationship Specialty Start Date End Date Unknown, Provider, PCP - General 07/26/17 documented as of this encounter
--- OUTSIDE RECORDS SUMMARY | 2024-10-26 16:34 | XMS_ITS | Encounter Summary ---
Author Organization [facility] Address [facility] [place] [address] Care Team Providers Care Manpower Development Advisor Name Role Phone Brittany Wynne MD Primary [...] Expiration Date Visits Re quested Visits Authorized [id number] 1 1 Encounter Details Date Type Department Care Team (Latest Contact Info) Description 11/20/2021 9:05 AM EST - 11/20/2021 9:09 AM EST Hospital En[place] [phone] Dylan Kendrick MD [facility] [place] [address] Malignant neoplasm of right breast in female, [...] EDT Office Visit Radiation Oncology at [address] [phone] Misty Llanos MD [facility] [place] [address] 08/23/2025 1:10 PM EST Appointment Mammography/[place] [phone] Jody Tam [employer] [facility] [place] [address] 08/23/2025 2:10 PM EST Office [place] [phone] Jody Tam [employer] [facility] [place] [address] documented as of this encounter Procedures Procedure Name Priority Date/Time Associated Diagnosis Comments MAMMO SENTINEL NODE INJECTION Routine 11/20/2021 9:48 AM EST Malignant neoplasm of right breast in female, estrogen receptor positive, unspecified site of breast documented in this encounter Results * Mammo [place] Node Injection (11/20/2021 9:48 AM EST) Anatomical [...] who have questions please contact the health housekeeper caregiver that requested your imaging first. ? Electronically signed by: Bettina Chong MD, [facility] ([phone]), at 11/21/2021 4:02 PM Narrative 11/21/2021 4:02 PM EST NEEDLE LOCALIZATION OF LESION IN THE RIGHT BREAST AND SENTINEL NODE INJECTION CLINICAL HISTORY: Please needle localize right breast for cancer lesion. [place] node injection. TECHNIQUE: Informed consent was confirmed [...] interpretation. Dylan Kendrick MD IMG MAMMO ORDERABLES documented in this encounter Visit Diagnoses Diagnosis Malignant neoplasm of right breast in female, estrogen receptor positive, unspecified site of breast documented in this encounter Administered Medications Inactive Administered Medications - up to 3 most recent administrations Medication Order MAR Action Action Date Dose Rate Site technetium (Tc-99m) tilmanocept (Lymphoseek) intradermal 0.5-2 mCi 0.5-2 mCi, Intradermal, ONCE, 1 dose, On Sat11/20/21 at 1030, Radiology Contrast, Routine Given 11/20/2021 10:00 AM EST 1.7 mCi documented in this encounter Care Teams Manpower Development Advisor Relationship Specialty Start Date End Date Brittany Wynne MD [address] [place] [address] [place] [address] PCP - General Family Medicine 10/23/21 documented as of this encounter
--- OUTSIDE RECORDS SUMMARY | 2024-10-26 16:35 | XMS_ITS | Encounter Summary ---
Author Organization [facility] Address [address] [place] [address] Care Team Providers Care Net Software Architect Name Role Phone Unavailable Primary Care Provider Unavailabl e Encounter Details Date Type Department Care Team (Late st Contact Info) Description 09/06/2004 Results Only [facility] conversion [address] [place] [address] Juan Miguel Steele, [address] [place], [place] [id number] Social History Tobacco Use Types Packs/Day Years [...] Procedure Name Priority Date/Time Associated Diagnosis Comments CYTOPATHOLOGY Routine 09/06/2004 0:00 EST documented in this encounter Results * CYTOPATHOLOGY (09/06/2004 0:00 EST) Pathology Report: CYTOPATHOLOGY REPORT Reports generated via electronic interface contain original data; however they are lacking the format of the original report. Caution should be taken when reading/interpreti ng unformatted reports. Name: ? ANGELITO MORALES ? Accession #: ? [id number] : ? 1965 (Age: 38) ??F ?Collect Date: ? 09/06/2004 Location: ? [facility] ? Receive Date: ? 09/08/2004 Provider: ?JUAN MIGUEL STEELE ANP Copy to: ? Specimen/Source: ?ThinPrep Pap Test, Cervix/Endocervix Last Menstrual Period: ? 08/26/04 Hormonal/Contracep tive Status: ? Tubal ligation: 1987 Other: ? HPVA - HPV testing requested if ASC-US on the current ThinPrep Pap test. ? SPECIMEN ADEQUACY ? Satisfactory for Evaluation - transformation zone component present GENERAL CATEGORIZATION ? Negative for Intraepithelial Lesion or Malignancy ? Document reviewed and electronically signed by: ? TIFF Rodriguez(ASCP) ? Report Date: ??09/18/2004 12:47 End of Report [facility] 09/06/2004 09/08/2004 us Juan Miguel Steele [employer] LAP MACHINE TENDER PATHOLOGY ORDERABLES Fin al Result [facility] [address] [place] [address] documented in this encounter Visit Diagnoses Not on filedocumented in this encounter
== END 2024-10-26 16:26 | disposition home or self-care (01) ==
LOC: NCHCN 16:25
PROVIDERS: PCP Family Medicine; Visit Provider Physician Assistant Surgical
DX: J44.9 Chronic obstructive pulmonary disease, unspecified (principal)
CPT/HCPCS: 85025

== ENCOUNTER → 2024-11-16 11:04 | Outpatient (BNVA) | payer MEDICARE, BC, SELFPAY | PROVIDERS: PCP Family Medicine; Referring Provider Family Medicine; Visit Provider Physician Assistant Surgical | DX: J45.50 Severe persistent asthma, uncomplicated (principal) | CPT/HCPCS: 96372 ==

== ENCOUNTER → 2025-02-15 10:26 | Outpatient (BNVA) | payer MEDICARE, BC, SELFPAY | PROVIDERS: PCP Family Medicine; Referring Provider Family Medicine; Visit Provider Physician Assistant Surgical | DX: J44.9 Chronic obstructive pulmonary disease, unspecified (principal); J45.909 Unspecified asthma, uncomplicated; R91.1 Solitary pulmonary nodule | CPT/HCPCS: 99214 ==

== ENCOUNTER → 2025-05-17 13:44 | Outpatient (BNVA) | payer MEDICARE, BC, SELFPAY | PROVIDERS: PCP Family Medicine; Referring Provider Family Medicine; Visit Provider Internal Medicine Pulmonary Disease | DX: J44.1 Chronic obstructive pulmonary disease with (acute) exacerbation (principal); R91.1 Solitary pulmonary nodule; J96.11 Chronic respiratory failure with hypoxia; F17.211 Nicotine dependence, cigarettes, in remission | CPT/HCPCS: 99215 ==

== ENCOUNTER 2025-05-17 15:51 | Outpatient (REF) | payer MEDICARE, BC, SELFPAY ==
[2025-05-17 14:38] LABS: BE -2 mmol/L (-2-3); HCO3 24 mmol/L (22-26)
[2025-05-17 14:39] LABS: FIO2L 3 L
== END 2025-05-17 15:52 | disposition home or self-care (01) ==
LOC: LBN 15:51
PROVIDERS: PCP Family Medicine; Visit Provider Internal Medicine Pulmonary Disease
DX: J44.9 Chronic obstructive pulmonary disease, unspecified (principal)
CPT/HCPCS: 82805; 36600

== ENCOUNTER → 2025-07-19 11:12 | Outpatient (BNVA) | payer MEDICARE, BC, SELFPAY | PROVIDERS: PCP Family Medicine; Referring Provider Family Medicine; Visit Provider Internal Medicine Pulmonary Disease | DX: J44.1 Chronic obstructive pulmonary disease with (acute) exacerbation (principal); J45.909 Unspecified asthma, uncomplicated; R91.1 Solitary pulmonary nodule; J96.11 Chronic respiratory failure with hypoxia; Z87.891 Personal history of nicotine dependence | CPT/HCPCS: 99214 ==